=== PATIENT | female | born 1935 | race Caucasian/White ===

== ENCOUNTER 2020-03-05 14:12 | Outpatient (REF) | payer MEDICARE, SELFPAY ==
[2020-03-05 14:51] LABS: MANUAL DIFF FLAG NO
[2020-03-05 14:53] LABS: Basophils Percent Auto 0.8 % (0-2); Eosinophils Absolute Auto 0.1 X10*3/uL (0.0-0.4); Eosinophils Percent Auto 2.3 % (0-4); Hematocrit 37.5 % (37-47); Hemoglobin 11.4 g/dl (12.0-16.0); Imm Gran Abs Auto 0.01 X10*3/uL (0.00-0.03); Imm Gran Pct Auto 0.2 % (0.0-0.4); Lymphocytes Absolute Auto 1.4 X10*3/uL (1.2-4.9); Lymphocytes Percent Auto 26.3 % (20-40); Mean Corpuscular HGB Conc 30.4 g/dl (31.0-35.0); Mean Corpuscular Hemoglobin 26.5 pg (27.0-33.0); Mean Corpuscular Volume 87.2 fL (80-98); Mean Platelet Volume 10.5 fL (9.4-12.3); Monocytes Absolute Auto 0.4 X10*3/uL (0.1-1.2); Monocytes Percent Auto 7.6 % (2-11); Neutrophils Absolute Auto 3.2 X10*3/uL (2.0-8.3); Neutrophils Percent Auto 62.8 % (45-73); Platelet Count 316 X10*3/uL (160-400); Red Cell Distribution Width 14.7 % (11.0-16.0); White Blood Count 5.1 X10*3/uL (4.8-10.8)
[2020-03-05 15:26] LABS: Iron 42 mcg/dL (30-160); Percent Iron Saturation 14 % (15-50); Total Iron Binding Capacity 308 mcg/dL (228-428); Unsaturated Iron Binding 266 ug/dL
[2020-03-05 15:47] LABS: Ferritin 83 ng/mL (10-250)
== END 2020-03-05 14:13 | disposition home or self-care (01) ==
LOC: HO.LAB 14:12
PROVIDERS: PCP Internal Medicine; Visit Provider Internal Medicine
DX: D50.9 Iron deficiency anemia, unspecified (principal)
CPT/HCPCS: 36415; 82728; 83540; 85025

== ENCOUNTER 2020-03-23 11:48 | Emergency (ER) | payer MEDICARE, SELFPAY ==
[2020-03-23 11:53] VITALS: BP 131/67; BP 142/64; PULSE 76; PULSE 81; RESP 16; TEMP 36.7; O2SAT 98; O2SAT 99; BMI 26.6
--- NOTE | 2020-03-23 12:29 | CT_ITS ---
EXAMINATION: CT HEAD W/O IV CONTRAST CT FACIAL BONES WITHOUT IV CONTRAST CT CERVICAL SPINE W/O IV CONTRAST CLINICAL INFORMATION: Head trauma, right facial laceration and pain after fall. COMPARISON: None TECHNIQUE: Head - Contiguous axial imaging of the head was performed from the skull base to the vertex without the administration of intravenous contrast, and axial images are reconstructed at 2 mm and 5 mm slice thickness. Cervical spine and facial bones - Volumetric, helical CT acquisitions of the cervical spine and facial bones obtained without contrast; in addition to the standard set of axial images, multiplanar reformatted images were provided in the coronal and sagittal imaging planes. This CT examination was performed using dose optimization techniques as appropriate, variously including the following: *Automated exposure control *Adjustment of mA and/or kV according to patient size (this includes techniques or standardized protocols for targeted exams where dose is matched to indication/reason for exam; i.e. extremities or head) *Use of iterative reconstruction technique DLP: 1288 mGy-cm (total) FINDINGS: HEAD: Atherosclerotic calcification of cavernous carotid arteries. 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 The mahan-white matter differentiation is maintained. No acute major vessel territory infarction. No intracranial hemorrhage, extra-axial fluid collection, focal mass effect or midline shift. No hydrocephalus. The calvarium is intact. The mastoid air cells and middle ear cavities are well aerated. CERVICAL SPINE: No acute findings. The occipital condyles, C1 and C2 lateral masses, dens and atlantodental articulation are intact. No fractures in the anterior or posterior elements. No prevertebral soft tissue swelling. Multilevel facet osteoarthritis. The osteoarthritis is associated with mild anterolisthesis at C3-C4, C4-C5, C6-C7 and C7-T1. There is intervertebral disc calcification at C2-C3. Degenerative disc disease of C5-C6 (as manifest by loss of disc space, endplate sclerosis, endplate cystlike lucency and prominent anterior vertebral osteophyte formation). The vertebral bodies are normal in height. No spinal canal stenosis. No spinal hematoma in the visualized neck. Mild pleural-based scarring at lung apices. No apical pneumothorax. Atherosclerotic calcification of the aortic arch and carotid arteries. Thyroid gland is heterogeneous and contains several small nodules. FACIAL BONES: The globes and orbital weldon, including lamina papyracea, are intact. Lenses have been extracted from the globes of each orbit. The orbital apex, optic canals, and retrobulbar fat planes are normal. The mandible and temporomandibular joints are intact. Mild osteoarthritis of the left temporomandibular joint. Nasal bones, pterygoid plates and zygomatic arches are normal. Soft tissue laceration of the right face, premaxillary area, associated with minimally depressed fracture of the anterior wall the right maxillary sinus. Small amount of hyperdense hemorrhage/fluid layers within the right maxillary sinus. Otherwise, paranasal sinuses are unremarkable. CT/CT cervical spine wo con IMPRESSION: - No intracranial hemorrhage or other acute intracranial pathology. - No fracture fractures in the degenerated cervical spine. - Soft tissue laceration in the right premaxillary area of the face, minimally displaced depressed fracture of the anterior wall of the right maxillary sinus, and small amount of fluid/hemorrhage layering within the sinus. Otherwise, facial bones are intact.
--- NOTE | 2020-03-23 12:29 | XR_ITS ---
EXAMINATION: RIGHT ELBOW AND RIGHT HAND. CLINICAL INFORMATION: Fall. Pain. COMPARISON: None TECHNIQUE: 3 views right elbow and 3 views right hand. FINDINGS: RIGHT ELBOW: There is no visible acute fracture, dislocation or subluxation. No abnormal joint effusion seen. There is a normal anterior fat pad visualized. RIGHT HAND: There is no visible acute fracture or dislocation. There is severe loss of PIP and DIP joints with periarticular spurring and seagull deformity of the DIP joints second through fifth digits XR/XR hand RT min 3V IMPRESSION: No acute fracture or dislocation right elbow or right hand. Severe degenerative changes right hand.
--- NOTE | 2020-03-23 12:29 | XR_ITS ---
EXAMINATION: RIGHT ELBOW AND RIGHT HAND. CLINICAL INFORMATION: Fall. Pain. COMPARISON: None TECHNIQUE: 3 views right elbow and 3 views right hand. FINDINGS: RIGHT ELBOW: There is no visible acute fracture, dislocation or subluxation. No abnormal joint effusion seen. There is a normal anterior fat pad visualized. RIGHT HAND: There is no visible acute fracture or dislocation. There is severe loss of PIP and DIP joints with periarticular spurring and seagull deformity of the DIP joints second through fifth digits XR/XR elbow RT min 3V IMPRESSION: No acute fracture or dislocation right elbow or right hand. Severe degenerative changes right hand.
--- NOTE | 2020-03-23 12:30 | ECG_ITS ---
Test Reason : FALL Blood Pressure : / mmHG Vent. Rate : 069 BPM Atrial Rate : 000 BPM P-R Int : 166 ms QRS Dur : 88 ms QT Int : 410 ms P-R-T Axes : 57 003 025 degrees QTc Int : 439 ms Normal sinus rhythm Normal ECG When compared with ECG of 23-MAR-2020 13:15, No significant changes seen Referred By: Jena Hernandez Electronically Signed By: PARTH MORTON MD [facility]
--- NOTE | 2020-03-23 12:32 | ED_ITS ---
HPI - Fall General Chief Complaint: Fall Stated Complaint: ?concussion, nausea Time Seen by Provider: 03/23/20 12:07 Source: EMS Mode of arrival: EMS History of Present Illness HPI Narrative: 84-year-old female with a past medical history of iron deficiency anemia, diverticulosis, presenting to ED with facial laceration, nausea, emesis x1, and dizziness s/p mechanical fall at home this morning around 5:00 a.m. Reports slipped and fell in bathroom due to hair spray being on floor, hit face on vanity, unknown LOC, has been ambulatory since the incident. Denies preceding symptoms prior to fall. Also reports right index finger and right elbow pain. Initially went to urgent care who sent her to ED. Denies taking anticoagulation. Reports mild headache at present. Denies vision changes, neck/back pain, CP/SOB, abdominal pain, numbness/tingling Tetanus unknown MD complaint: fall Related Data Previous Rx's Medication Instructions Recorded acetaminophen [Tylenol Extra 500 mg PO Q6H PRN #20 tab 03/23/20 Strength] doxycycline monohydrate 100 mg PO BID 7 Days #14 cap 03/23/20 ondansetron HCl [Zofran] 4 mg PO Q8H PRN #10 tab 03/23/20 Allergies Allergy/AdvReac Type Severity Reaction Status Date / Time Penicillins Allergy Mild RASH Unverified 01/11/20 15:10 Twiwjvi-Eqb-Jav Reductase Allergy Mild RASH Unverified 01/11/20 15:10 Inhibitor [Statins: Hmg-Coa Reductase Inhibito] levofloxacin [From LEVAQUIN] Allergy Unknown RED RASH Unverified 01/11/20 15:10 penicillin V Allergy Unknown Verified 12/13/19 00:00 Statins Allergy Unknown Uncoded 12/13/19 00:00 Review of Systems Review of Systems: Constitutional: No Weight loss, No Fever, No Chills ENT/Mouth: No sore throat, No Rhinorrhea Eyes: No Vision Changes Cardiovascular: No Chest Pain, No SOB, No Dyspnea on Exertion Respiratory: No Cough, No Dyspnea Gastrointestinal: + Nausea, + Vomiting, No Diarrhea,No Abdominal pain Genitourinary: No irregular bleeding, No Dysuria, No Urinary Frequency, No Hematuria Musculoskeletal: + joint pain, No Myalgias, + Joint Swelling Skin: +laceration, No rash Neuro: No Weakness, No Numbness, No Paresthesias, ? Loss of Consciousness, + Dizziness, + Headache Yes all other systems are reviewed and are negative Neurologic: Reports Abnormal speech present COUNTS INCLUDE 234 BEDS AT THE [facility] Past Medical History Attestation statement: The following information was validated with the patient. Social History Social History Alcohol intake: never Smoking Status: Never smoker Use of substances other than those prescribed or required for medical reasons: No Advance Directives: No Advance Directives Information Provided: Yes Physical Exam Vital Signs: Vital Signs: Last Vital Signs Temp 98.0 F 03/23/20 11:53 Pulse 76 03/23/20 11:53 Resp 16 03/23/20 11:53 BP 142/64 H 03/23/20 11:53 Pulse Ox 99 03/23/20 11:53 Body Mass Index 26.6 Const: General: cooperative and healthy appearing Orientation/consciousness: patient oriented x3 Limitations: no limitations HENMT: Other: + right-sided facial swelling and ecchymosis. 4.5 cm superficial laceration noted to right periorbital area. No facial step-offs a ppreciated Ears: hearing grossly normal bilaterally and TM's normal bilaterally General nose exam: Normal external nose present Mouth: Normal oral and palatal mucosa present Throat: Yes posterior oropharynx normal Eyes: Other: EOMs intact General: appearance normal, both eyes and all related structures Pupils: Equal, round and reactive pupils present EOM: EOMs intact bilaterally Neck: Other: No midline cervical spinous tenderness Neck: Yes normal visual inspection, Yes full ROM and Yes no meningeal signs Chest: Chest palpation & inspection: normal inspection of the chest, normal palpation of entire chest wall and no crepitus Resp: Effort & Inspection: normal respiratory effort Cardio: Rate: regular rate Peripheral pulses: radial pulses present and dorsalis pedis present GI: Inspection: Yes normal to inspection Palpation (GI): Soft to palpation, nontender, no guarding and not rigid Back/Spine/Pelvis: Other: No midline thoracic/lumbar spinous tenderness Neuro: General: patient oriented x3, tone normal, moves all extremities, no meningeal signs, no focal motor deficits and CN's II-XI intact bilaterally Cranial nerves: Yes Equal, round and reactive pupils present Cognition (Neuro): normal cognition Speech: Abnormal speech present Gait exam (Neuro): Normal gait present Motor exam (neuro): 5/5 motor strength present throughout Coordination: [id number] test normal Extrem: Other: Right elbow with mild swelling and TTP. FROM/NV intact +R index finger with swelling and mild eccyhmosis. FROM intact General: Yes normal to inspection Course Course Course Narrative: -1451--head/C-spine CT without acute findings -facial bones CT showing minimally displaced depressed fracture of the anterior wall of the right maxillary sinus and small amount of fluid hemorrhage layering within the sinus > will discharge patient with Augmentin and ENT follow-up -hand and elbow x-ray unremarkable -labs otherwise unremarkable -orthostatic vital signs negative. Patient ambulated with steady gait in the ED. Overall reports symptomatic improvement Worrisome signs and symptoms including constant worsening headache, nausea/vomiting, vision changes, etc to return to the ED and close follow-up wit h ENT/PCP, patient verbalized understanding feel safe for discharge Procedures Laceration Laceration 1: Site: face Size (cm): 4.5 Description: irregular and clean Depth: simple, single layer Skin layer closed with: other (Dermabond) MDM - Fall MDM Narrative Medical decision making narrative: 84-year-old female with a past medical history of iron deficiency anemia, diverticulosis, presenting to ED with facial laceration, nausea, emesis x1, and dizziness s/p mechanical fall at home this morning around 5:00 a.m. on exam VSS, NAD/well-appearing, no focal neuro deficits, no midline spinous tenderness throughout. Concern for ICH/subdural vs anemia vs concussion. Rule out dehydration/orthostatic hypotension. Will repair laceration and update tetanus Plan: EKG, labs, imaging, orthostatics, lack repair, reassess Lab Data Result diagrams: 03/23/20 13:59 03/23/20 14:37 Labs: Lab Results 03/23/20 03/23/20 03/23/20 Range/Units 13:59 13:59 13:59 WBC 5.2 (4.8-10.8) X10*3/uL RBC 4.09 L (4.20-5.50) X10*6/uL Hgb 10.8 L (12.0-16.0) g/dl Hct 34.9 L (37-47) % MCV 85.3 (80-98) fL MCH 26.4 L (27.0-33.0) pg MCHC 30.9 L (31.0-35.0) g/dl RDW 14.5 (11.0-16.0) % Plt Count 277 (160-400) X10*3/uL MPV 10.4 (9.4-12.3) fL Immature Gran % (Auto) 0.2 (0.0-0.4) % Neut % (Auto) 78.7 H (45-73) % Lymph % (Auto) 14.3 L (20-40) % [place] % (Auto) 6.0 (2-11) % Eos % (Auto) 0.2 (0-4) % Baso % (Auto) 0.6 (0-2) % Lymph # (Auto) 0.7 L (1.2-4.9) X10*3/uL [place] # (Auto) 0.3 (0.1-1.2) X10*3/uL Eos # (Auto) 0.0 (0.0-0.4) X10*3/uL Baso # (Auto) 0.0 (0.0-0.2) X10*3/uL Abs Immat Gran (auto) 0.01 (0.00-0.03) X10*3/uL Absolute Neuts (auto) 4.1 (2.0-8.3) X10*3/uL Absolute Nucleated RBC 0.000 (0.0-0.012) X10*3/uL Nucleated RBC % (auto) 0.0 (0.0-0.2) /100WBC Hold Blue Top SEE NOTE Sodium Cancelled Potassium Cancelled Chloride Cancelled Carbon Dioxide Cancelled Anion Gap Cancelled BUN Cancelled Creatinine Cancelled Estim Creat Clear Calc Cancelled Estimated GFR Cancelled Random Glucose Cancelled Calcium Cancelled Magnesium Cancelled Total Bilirubin Cancelled Direct Bilirubin Cancelled AST Cancelled ALT Cancelled Alkaline Phosphatase Cancelled Total Protein Cancelled Albumin Cancelled 03/23/20 Range/Units 14:37 WBC (4.8-10.8) X10*3/uL RBC (4.20-5.50) X10*6/uL Hgb (12.0-16.0) g/dl Hct (37-47) % MCV (80-98) fL MCH (27.0-33.0) pg MCHC (31.0-35.0) g/dl RDW (11.0-16.0) % Plt Count (160-400) X10*3/uL MPV (9.4-12.3) fL Immature Gran % (Auto) (0.0-0.4) % Neut % (Auto) (45-73) % Lymph % (Auto) (20-40) % [place] % (Auto) (2-11) % Eos % (Auto) (0-4) % Baso % (Auto) (0-2) % Lymph # (Auto) (1.2-4.9) X10*3/uL [place] # (Auto) (0.1-1.2) X10*3/uL Eos # (Auto) (0.0-0.4) X10*3/uL Baso # (Auto) (0.0-0.2) X10*3/uL Abs Immat Gran (auto) (0.00-0.03) X10*3/uL Absolute Neuts (auto) (2.0-8.3) X10*3/uL Absolute Nucleated RBC (0.0-0.012) X10*3/uL Nucleated RBC % (auto) (0.0-0.2) /100WBC Hold Blue Top Sodium 138 Potassium 4.4 Chloride 107 Carbon Dioxide 23 Anion Gap 12 BUN 22 H Creatinine 1.09 Estim Creat Clear Calc 38.3 Estimated GFR 48 Random Glucose 108 Calcium 8.4 Magnesium 1.8 Total Bilirubin 0.5 Direct Bilirubin 0.2 AST 13 ALT 8 Alkaline Phosphatase 77 Total Protein 6.6 Albumin 3.4 L Discharge Plan Discharge Clinical Impression: Laceration Fracture of maxillary sinus Qualifiers: Encounter type: initial encounter Fracture type: closed Qualified Code(s): S02.401A - Maxillary fracture, unspecified side, initial encounter for closed fracture Fall Qualifiers: Encounter type: initial encounter Qualified Code(s): W19.XXXA - Unspecified fall, initial encounter Patient Disposition: Home, Self-Care Instructions: Laceration (ED), Facial Fracture (ED) Additional Instructions: Your blood work was reassuring today in the ED Your x-rays were negative Your CT scan showed a fracture of the anterior wall of your right maxillary sinus with some bleeding into her sinus. Doxycycline is an antibiotic, take as prescribed YOU NEED TO FOLLOW-UP WITH AN ENT SPECIALIST, CALL THEM TODAY TO MAKE AN APPOINTMENT Take Tylenol at home for headache Zofran as antinausea medication, take as needed Dermabond was applied to her face, do not pick at area, will fall off on its own If you develop constant worsening headache, persistent nausea/vomiting, vision changes, or weakness return to the ED immediately Call your doctor for follow-up Apply ice to her face/painful areas Make sure staying hydrated at home Prescriptions: New acetaminophen [Tylenol Extra Strength] 500 mg tablet 500 mg PO Q6H PRN (Reason: pain or fever) Qty: 20 RF: 0 ondansetron HCl [Zofran] 4 mg tablet 4 mg PO Q8H PRN (Reason: nausea and vomiting) Qty: 10 RF: 0 doxycycline monohydrate 100 mg capsule 100 mg PO BID 7 Days Qty: 14 RF: 0 Referrals: Jl Hameed MD [Primary Care Provider] - 3 days Rajeev Manuel [Physician] - 1 week
[2020-03-23] MEDS: Meclizine HCl 12.5 MG TABLET PO (12:41)
[2020-03-23] MEDS: Acetaminophen 325 MG TABLET 650 MG PO (12:41)
[2020-03-23] MEDS: 0.9 % Sodium Chloride 1,000 ML 999 ML IVCONT (13:42)
[2020-03-23] MEDS: ondansetron HCL 4 MG/2 ML VIAL IVPUSH (13:42)
--- NOTE | 2020-03-23 14:07 | PC.NURSE ---
PROVIDER AT BEDSIDE TO CLOSE WOUND W DERMABOND
[2020-03-23 14:08] LABS: MANUAL DIFF FLAG NO
[2020-03-23 14:15] LABS: Basophils Percent Auto 0.6 % (0-2); Eosinophils Percent Auto 0.2 % (0-4); Hematocrit 34.9 % (37-47); Hemoglobin 10.8 g/dl (12.0-16.0); Imm Gran Abs Auto 0.01 X10*3/uL (0.00-0.03); Imm Gran Pct Auto 0.2 % (0.0-0.4); Lymphocytes Absolute Auto 0.7 X10*3/uL (1.2-4.9); Lymphocytes Percent Auto 14.3 % (20-40); Mean Corpuscular HGB Conc 30.9 g/dl (31.0-35.0); Mean Corpuscular Hemoglobin 26.4 pg (27.0-33.0); Mean Corpuscular Volume 85.3 fL (80-98); Mean Platelet Volume 10.4 fL (9.4-12.3); Monocytes Absolute Auto 0.3 X10*3/uL (0.1-1.2); Neutrophils Absolute Auto 4.1 X10*3/uL (2.0-8.3); Neutrophils Percent Auto 78.7 % (45-73); Platelet Count 277 X10*3/uL (160-400); Red Blood Count 4.09 X10*6/uL (4.20-5.50); Red Cell Distribution Width 14.5 % (11.0-16.0); White Blood Count 5.2 X10*3/uL (4.8-10.8)
[2020-03-23 15:11] LABS: Alanine Aminotransferase 8 U/L (0-31); Albumin Level 3.4 g/dL (3.5-5.0); Alkaline Phosphatase 77 U/L (39-117); Anion Gap 12 (12-20); Aspartate Amino Transferase 13 U/L (5-31); Bilirubin Direct 0.2 mg/dL (0.0-0.5); Bilirubin Total 0.5 mg/dL (0.0-1.0); Blood Urea Nitrogen 22 mg/dL (9-16); Calcium 8.4 mg/dL (8.4-10.2); Carbon Dioxide 23 mmol/L (22-29); Chloride 107 mmol/L (96-108); Creatinine Clr Calc Pharmacy 38.3; Estimated Glomerular Filt Rate 48; Glucose Random 108 mg/dL (60-115); Magnesium 1.8 mg/dL (1.6-2.6); Potassium 4.4 mmol/l (3.3-5.1); Sodium 138 mmol/L (135-145); Total Protein 6.6 g/dL (6.5-8.0)
[2020-03-23] MEDS: SUMAtriptan succinate 50 MG TABLET PO (15:44)
== END 2020-03-23 15:57 | disposition home or self-care (01) ==
PROVIDERS: Physician Assistant; Emergency Provider Internal Medicine; PCP Internal Medicine
DX: S01.81XA Laceration without foreign body of other part of head, initial encounter (principal); S02.401A Maxillary fracture, unspecified side, initial encounter for closed fracture; G44.309 Post-traumatic headache, unspecified, not intractable; W01.0XXA Fall on same level from slipping, tripping and stumbling without subsequent striking against object, initial encounter; Y93.9 Activity, unspecified; Y92.002 Bathroom of unspecified non-institutional (private) residence as the place of occurrence of the external cause; Y99.9 Unspecified external cause status
CPT/HCPCS: 12013; 36415; 70450; 70486; 72125; 73080; 73130; 80048; 80076; 83735; 85025; 90471; 90715; 93005; 96361; 96374; 99284; J2405

== ENCOUNTER → 2020-04-04 13:17 | Outpatient (BNV) | payer MEDICARE, SELFPAY | PROVIDERS: PCP Internal Medicine; Visit Provider Internal Medicine Medical Oncology | DX: D50.9 Iron deficiency anemia, unspecified (principal); Z85.3 Personal history of malignant neoplasm of breast; Z92.21 Personal history of antineoplastic chemotherapy | CPT/HCPCS: 99213; 99214 ==

== ENCOUNTER 2020-04-10 11:14 | Outpatient (REF) | payer MEDICARE, SELFPAY ==
[2020-04-10 13:25] LABS: Anion Gap 11 (12-20); Blood Urea Nitrogen 12 mg/dL (9-16); Calcium 8.8 mg/dL (8.4-10.2); Carbon Dioxide 28 mmol/L (22-29); Chloride 104 mmol/L (96-108); Estimated Glomerular Filt Rate 50; Glucose Fasting 101 mg/dL (60-99); Potassium 4.3 mmol/l (3.3-5.1); Sodium 139 mmol/L (135-145)
== END 2020-04-10 11:15 | disposition home or self-care (01) ==
LOC: HO.MANLDS 11:14
PROVIDERS: PCP Internal Medicine; Visit Provider Internal Medicine
DX: N25.9 Disorder resulting from impaired renal tubular function, unspecified (principal)
CPT/HCPCS: 80048

== ENCOUNTER 2020-06-06 14:46 | Outpatient (REF) | payer MEDICARE, SELFPAY ==
[2020-06-06 15:05] LABS: MANUAL DIFF FLAG NO
[2020-06-06 15:07] LABS: Basophils Percent Auto 0.7 % (0-2); Eosinophils Absolute Auto 0.1 X10*3/uL (0.0-0.4); Eosinophils Percent Auto 2.3 % (0-4); Hematocrit 36.5 % (37-47); Hemoglobin 10.7 g/dl (12.0-16.0); Imm Gran Abs Auto 0.02 X10*3/uL (0.00-0.03); Imm Gran Pct Auto 0.3 % (0.0-0.4); Lymphocytes Absolute Auto 1.5 X10*3/uL (1.2-4.9); Lymphocytes Percent Auto 25.7 % (20-40); Mean Corpuscular HGB Conc 29.3 g/dl (31.0-35.0); Mean Corpuscular Hemoglobin 24.3 pg (27.0-33.0); Mean Platelet Volume 10.6 fL (9.4-12.3); Monocytes Absolute Auto 0.5 X10*3/uL (0.1-1.2); Monocytes Percent Auto 8.9 % (2-11); Neutrophils Absolute Auto 3.6 X10*3/uL (2.0-8.3); Neutrophils Percent Auto 62.1 % (45-73); Platelet Count 331 X10*3/uL (160-400); Red Cell Distribution Width 15.6 % (11.0-16.0); White Blood Count 5.8 X10*3/uL (4.8-10.8)
[2020-06-06 15:29] LABS: Iron 38 mcg/dL (30-160); Percent Iron Saturation 13 % (15-50); Total Iron Binding Capacity 284 mcg/dL (228-428); Unsaturated Iron Binding 246 ug/dL
[2020-06-06 15:51] LABS: Ferritin 57 ng/mL (10-250)
== END 2020-06-06 14:47 | disposition home or self-care (01) ==
LOC: HO.LAB 14:46
PROVIDERS: PCP Internal Medicine; Visit Provider Internal Medicine
DX: D50.9 Iron deficiency anemia, unspecified (principal); D50.0 Iron deficiency anemia secondary to blood loss (chronic)
CPT/HCPCS: 36415; 82728; 83540; 85025

== ENCOUNTER 2020-07-16 11:38 | Outpatient (REF) | payer MEDICARE, SELFPAY | END 2020-07-16 11:39 | disposition home or self-care (01) | LOC: HO.MDS 11:38 | PROVIDERS: PCP Internal Medicine; Visit Provider Internal Medicine Medical Oncology | DX: D50.9 Iron deficiency anemia, unspecified (principal) | CPT/HCPCS: 96365; J1439 ==

== ENCOUNTER 2020-07-23 11:55 | Outpatient (REF) | payer MEDICARE, SELFPAY | END 2020-07-23 11:56 | disposition home or self-care (01) | LOC: HO.MDS 11:55 | PROVIDERS: PCP Internal Medicine; Visit Provider Internal Medicine Medical Oncology | DX: D50.9 Iron deficiency anemia, unspecified (principal) | CPT/HCPCS: 96365; J1439 ==

== ENCOUNTER 2020-09-05 12:02 | Outpatient (REF) | payer MEDICARE, SELFPAY ==
[2020-09-05 13:11] LABS: MANUAL DIFF FLAG NO
[2020-09-05 13:21] LABS: Basophils Absolute Auto 0.1 X10*3/uL (0.0-0.2); Basophils Percent Auto 1.3 % (0-2); Eosinophils Absolute Auto 0.1 X10*3/uL (0.0-0.4); Eosinophils Percent Auto 2.4 % (0-4); Hematocrit 39.6 % (37-47); Hemoglobin 12.1 g/dl (12.0-16.0); Imm Gran Abs Auto 0.01 X10*3/uL (0.00-0.03); Imm Gran Pct Auto 0.2 % (0.0-0.4); Lymphocytes Absolute Auto 1.1 X10*3/uL (1.2-4.9); Lymphocytes Percent Auto 23.1 % (20-40); Mean Corpuscular HGB Conc 30.6 g/dl (31.0-35.0); Mean Corpuscular Hemoglobin 27.9 pg (27.0-33.0); Mean Corpuscular Volume 91.2 fL (80-98); Mean Platelet Volume 10.6 fL (9.4-12.3); Monocytes Absolute Auto 0.4 X10*3/uL (0.1-1.2); Monocytes Percent Auto 8.1 % (2-11); Neutrophils Percent Auto 64.9 % (45-73); Platelet Count 268 X10*3/uL (160-400); Red Blood Count 4.34 X10*6/uL (4.20-5.50); Red Cell Distribution Width 17.7 % (11.0-16.0); White Blood Count 4.6 X10*3/uL (4.8-10.8)
[2020-09-05 13:28] LABS: Iron 42 mcg/dL (30-160); Percent Iron Saturation 20 % (15-50); Total Iron Binding Capacity 215 mcg/dL (228-428); Unsaturated Iron Binding 173 ug/dL
[2020-09-05 13:48] LABS: Ferritin 420 ng/mL (10-250)
== END 2020-09-05 12:03 | disposition home or self-care (01) ==
LOC: HO.LAB 12:02
PROVIDERS: PCP Internal Medicine; Visit Provider Internal Medicine
DX: D50.9 Iron deficiency anemia, unspecified (principal)
CPT/HCPCS: 36415; 82728; 83540; 85025

== ENCOUNTER 2021-01-10 10:16 | Outpatient (REF) | payer MEDICARE, SELFPAY ==
[2021-01-10 12:51] LABS: Hematocrit 36.4 % (37-47); Hemoglobin 11.2 g/dl (12.0-16.0); Mean Corpuscular HGB Conc 30.8 g/dl (31.0-35.0); Mean Corpuscular Hemoglobin 28.4 pg (27.0-33.0); Mean Corpuscular Volume 92.4 fL (80-98); Mean Platelet Volume 10.3 fL (9.4-12.3); Platelet Count 319 X10*3/uL (160-400); Red Blood Count 3.94 X10*6/uL (4.20-5.50); Red Cell Distribution Width 13.6 % (11.0-16.0); White Blood Count 4.6 X10*3/uL (4.8-10.8)
[2021-01-10 13:28] LABS: Alanine Aminotransferase 6 U/L (0-31); Albumin Level 3.5 g/dL (3.5-5.0); Alkaline Phosphatase 97 U/L (39-117); Anion Gap 14 (12-20); Aspartate Amino Transferase 11 U/L (5-31); Bilirubin Total 0.5 mg/dL (0.0-1.0); Blood Urea Nitrogen 21 mg/dL (9-16); Calcium 9.2 mg/dL (8.4-10.2); Carbon Dioxide 26 mmol/L (22-29); Chloride 102 mmol/L (96-108); Cholesterol 164 mg/dL; Estimated Glomerular Filt Rate 46; Glucose Fasting 100 mg/dL (60-99); HDL Cholesterol 38 mg/dL; Iron 38 mcg/dL (30-160); LDL Cholesterol Calculated 102 mg/dl; Percent Iron Saturation 18 % (15-50); Potassium 4.5 mmol/L (3.3-5.1); Sodium 137 mmol/L (135-145); Total Iron Binding Capacity 215 mcg/dL (228-428); Triglycerides 122 mg/dL; Unsaturated Iron Binding 177 ug/dL
[2021-01-10 13:50] LABS: Ferritin 332 ng/mL (10-250)
== END 2021-01-10 10:17 | disposition home or self-care (01) ==
LOC: HO.MANLDS 10:16
PROVIDERS: PCP Internal Medicine; Visit Provider Internal Medicine
DX: D50.9 Iron deficiency anemia, unspecified (principal); E78.5 Hyperlipidemia, unspecified
CPT/HCPCS: 36415; 80053; 80061; 82728; 83540; 85027

== ENCOUNTER 2021-05-01 13:36 | Outpatient (REF) | payer MEDICARE, SELFPAY | END 2021-05-01 13:37 | disposition home or self-care (01) | LOC: HO.MDS 13:36 | PROVIDERS: PCP Internal Medicine; Visit Provider Internal Medicine Medical Oncology | DX: D50.9 Iron deficiency anemia, unspecified (principal) | CPT/HCPCS: 96365; J1439 ==

== ENCOUNTER 2021-05-09 10:38 | Outpatient (REF) | payer MEDICARE, SELFPAY | END 2021-05-09 10:39 | disposition home or self-care (01) | LOC: HO.MDS 10:38 | PROVIDERS: PCP Internal Medicine; Visit Provider Internal Medicine Medical Oncology | DX: D50.9 Iron deficiency anemia, unspecified (principal) | CPT/HCPCS: 96365; J1439 ==

== ENCOUNTER 2021-05-20 08:47 | Outpatient (REF) | payer MEDICARE, SELFPAY ==
[2021-05-20 11:15] LABS: Appearance Urine CLEAR; Color Urine YELLOW; Glucose Urine UA NEG (NEG); Leukocyte Esterase Urine NEG (NEG); Nitrite Urine NEG (NEG); Urine Blood NEG (NEG); Urine Ketones NEG (NEG); Urine Protein NEG (NEG-TRACE)
[2021-05-20 11:44] LABS: Anion Gap 13 (12-20); Blood Urea Nitrogen 14 mg/dL (9-16); Calcium 9.4 mg/dL (8.4-10.2); Carbon Dioxide 28 mmol/L (22-29); Chloride 102 mmol/L (96-108); Estimated Glomerular Filt Rate 40; Glucose Random 101 mg/dL (60-115); Magnesium 2.3 mg/dL (1.6-2.6); Potassium 3.9 mmol/L (3.3-5.1); Sodium 139 mmol/L (135-145)
== END 2021-05-20 08:48 | disposition home or self-care (01) ==
LOC: HO.MANLDS 08:47
PROVIDERS: PCP Internal Medicine; Visit Provider Internal Medicine
DX: N28.9 Disorder of kidney and ureter, unspecified (principal)
CPT/HCPCS: 36415; 80048; 81003; 83735

== ENCOUNTER 2021-06-17 11:30 | Outpatient (REF) | payer MEDICARE, SELFPAY ==
[2021-06-17 13:53] LABS: MANUAL DIFF FLAG NO
[2021-06-17 13:59] LABS: Eosinophils Absolute Auto 0.1 X10*3/uL (0.0-0.4); Eosinophils Percent Auto 2.2 % (0-4); Hematocrit 40.2 % (37.0-47.0); Hemoglobin 12.5 g/dl (12.0-16.0); Imm Gran Abs Auto 0.01 X10*3/uL (0.00-0.03); Imm Gran Pct Auto 0.2 % (0.0-0.4); Lymphocytes Absolute Auto 0.9 X10*3/uL (1.2-4.9); Lymphocytes Percent Auto 22.4 % (20-40); Mean Corpuscular HGB Conc 31.1 g/dl (31.0-35.0); Mean Corpuscular Hemoglobin 28.3 pg (27.0-33.0); Mean Platelet Volume 10.4 fL (9.4-12.3); Monocytes Absolute Auto 0.4 X10*3/uL (0.1-1.2); Monocytes Percent Auto 9.1 % (2-11); Neutrophils Absolute Auto 2.6 x10*3/uL (2.0-8.3); Neutrophils Percent Auto 65.1 % (45-73); Platelet Count 262 X10*3/uL (160-400); Red Blood Count 4.42 X10*6/uL (4.20-5.50); Red Cell Distribution Width 15.2 % (11.0-16.0); White Blood Count 4.1 X10*3/uL (4.8-10.8)
[2021-06-17 14:09] LABS: C Reactive Protein 4.63 mg/dL (< or = 0.50)
[2021-06-17 14:43] LABS: Erythrocyte Sedimentation Rate 50 MM/HR (0-20)
== END 2021-06-17 11:31 | disposition home or self-care (01) ==
LOC: HO.10HDL 11:30
PROVIDERS: Visit Provider Internal Medicine
DX: Z13.89 Encounter for screening for other disorder (principal)
CPT/HCPCS: 36415; 85025; 85652; 86140

== ENCOUNTER 2021-06-17 17:00 | Outpatient (REF) | payer MEDICARE, SELFPAY ==
[2021-06-18 15:23] LABS: Leukocytes Stool Qualitative FEW: < 2/OIF (NEGATIVE)
[2021-06-18 16:48] LABS: CDiff Gene PCR NEGATIVE (Negative)
== END 2021-06-17 17:01 | disposition home or self-care (01) ==
LOC: HO.10HDLNP 17:00
PROVIDERS: Visit Provider Internal Medicine
DX: R19.7 Diarrhea, unspecified (principal)
CPT/HCPCS: 36415; 85025; 85652; 86140; 87045; 87046; 87177; 87209; 87329; 87493; 89055

== ENCOUNTER 2021-06-18 13:08 | Outpatient (REF) | payer MEDICARE, SELFPAY | END 2021-06-18 13:09 | disposition home or self-care (01) | LOC: HO.10HDLNP 13:08 | PROVIDERS: Visit Provider Internal Medicine | DX: Z13.89 Encounter for screening for other disorder (principal) ==

== ENCOUNTER 2021-06-26 13:41 | Outpatient (REF) | payer MEDICARE, SELFPAY ==
[2021-06-27 19:22] LABS: Immunoglobulin A 683 mg/dL (70-320)
[2021-06-28 07:17] LABS: Transglutaminase Ab IgG <1.0 U/mL; Transglutaminase IgA <1.0 U/mL
[2021-06-30 13:50] LABS: Gliadin Deamidated IgG Ab <1.0 U/mL
[2021-07-02 21:06] LABS: Endomysial IgA Antibody Negative (Negative)
== END 2021-06-26 13:42 | disposition home or self-care (01) ==
LOC: HO.LAB 13:41
PROVIDERS: PCP Internal Medicine; Visit Provider Internal Medicine
DX: R19.7 Diarrhea, unspecified (principal); D50.9 Iron deficiency anemia, unspecified; R63.4 Abnormal weight loss
CPT/HCPCS: 36415; 82784; 86231; 86258; 86364

== ENCOUNTER 2021-07-02 10:19 | Day surgery (SDC) | payer MEDICARE, SELFPAY ==
[2021-07-02 09:52] VITALS: BMI 23.2
[2021-07-02 10:33] VITALS: BP 145/74; PULSE 79; RESP 19; TEMP 36.8; O2SAT 98
--- NOTE | 2021-07-02 11:28 | HO.ANESPROP2 ---
HPI - Anesthesia Eval Consult details Narrative: 85 yo female patient for Colonoscopy PMFSH Active Problems Active Problems: All Active Problems (Updated 07/01/21 @ 08:20 by Elizabeth Jacobson) Iron deficiency anemia (Acute). Getting iron infusions. 06/17/21 Hgb/Hct 12.5/40.2 Breast cancer (Acute) Breast cancer in female (Acute) Advanced age Past Medical History Medical History (Updated 07/02/21 @ 11:37 by Erica Mendieta MD) Cataracts, bilateral Cholecystectomy planned Diverticulitis FH: total knee replacement Hx of breast cancer Iron deficiency anemia Family History Family History Sister Breast cancer Diabetes Mother Diabetes Family history of problems with anesthesia: No Surgical History Surgical History (Updated 07/02/21 @ 11:37 by Erica Mendieta MD) Cataract H/O colonoscopy H/O total knee replacement History of colostomy reversal History of Problems with Anesthesia: No Social History Social History Alcohol intake: never Patient Tobacco Use Status: Former Tobacco user Are you DNR?: No Advance Directives: No Advance Directives Information Provided: Yes Meds Allergies Allergy/AdvReac Type Severity Reaction Status Date / Time Penicillins Allergy Mild RASH Verified 04/08/21 13:39 Fyepuqz-RBM-YrR Reductase Allergy Mild RASH Verified 04/08/21 13:39 Inhibitor [Statins: Hmg-Coa Reductase Inhibito] levofloxacin [From LEVAQUIN] Allergy Unknown RED RASH Verified 04/08/21 13:39 gabapentin Allergy Unknown Verified 07/01/21 08:21 pregabalin [From Lyrica] Allergy Unknown Verified 07/01/21 08:21 Active Medications: Current Medications Sodium Biphosphate/Sodium Phosphate (Sodium Phosphate,Hancock-Dibasic 133 Ml Enema) 133 ml LA ONCE PRN PRN Reason: Poor Colonoscopy Prep Results Home Medications Medication Instructions Recorded Confirmed Last Taken Type fluoxetine 20 mg capsule 1 cap PO DAILY 04/04/20 04/08/21 Unknown History latanoprost 0.005 % eye drops 1 drp OPHTHALMIC (EYE) DAILY 04/04/20 04/08/21 Unknown History sucralfate 1 gram tablet 1 g PO DAILY 04/04/20 04/08/21 Unknown History sumatriptan succinate 100 mg tablet 1 tab PO DIRECTED PRN 04/04/20 04/08/21 Unknown History ferrous sulfate 325 mg (65 mg 325 mg PO DAILY 07/02/20 04/08/21 06/24/21 History iron) tablet (iron) omeprazole 20 mg capsule,delayed 20 mg PO DAILY 04/08/21 04/08/21 Unknown History release Exam Exam Date and Time: July 02, 2021 1128 Height,Weight and Vital Signs: Height 5 ft 5.5 in Weight 64.41 kg Last Vital Signs Temp 98.2 F 07/02/21 10:33 Pulse 79 07/02/21 10:33 Resp 19 07/02/21 10:33 BP 145/74 H 07/02/21 10:33 Pulse Ox 98 07/02/21 10:33 Airway Mallampati Class: II TM Dist: >3cm Neck ROM: Full Partial: Upper Heart: RRR Lungs: CTAB Other: [place] queasy during prep for colonoscopy. Requests anti-emetic. Given Assessment and Plan Assessment Anesthesia Assessment: Anesthesia Plan Discussed and Chart Reviewed Final Anesthetic Review Family History of Problems with Anesthesia: No History of Problems with Anesthesia: No NPO: Yes ASA Class: II Final Preanesthetic Review: No Changes in Pt Med Stat, Meds/Allgs Chart Reviewed, Consent Obtained/Reviewed and Anes Risks/Benef Reviewed Patient Risk: Low Procedure Risk: Low Assessment/Block/Sedation in SS: Assess/Block/Sedation-SS Anesthetic Plan Anesthetic Plan: MAC: Disposition: Standard PACU
[2021-07-02] MEDS: Lactated Ringers 1,000 ML 100 ML IVCONT (11:49)
[2021-07-02] MEDS: ondansetron HCL 4 MG/2 ML VIAL IVPUSH (11:49)
[2021-07-02 12:44] VITALS: BP 141/76; PULSE 83; RESP 12; TEMP 36.1; O2SAT 99
--- NOTE | 2021-07-02 12:48 | P.BOP_ITS ---
Brief Operative Note Date of Service: 07/02/21 Pre-op diagnosis: Diarrhea Post-op diagnosis: other (Colon polyp, R/O microscopic colitis) Procedure: Colonoscopy to the cecum and TI with hot snare polypectomy, and biopsies. Surgeon: Dawood Allred Anesthesia: MAC Was an [employer] used for this Procedure?: No Estimated blood loss (mL): 2.0 Pathology: other (A. Terminal ileum B. Ascending colon C. Ascending colon polyp D. Descending colon) Condition: stable Disposition: PACU
[2021-07-02 12:59] VITALS: BP 166/83; PULSE 82; RESP 18; TEMP 36.1; O2SAT 99
--- NOTE | 2021-07-02 13:06 | OP_ITS ---
SURGEON: Dawood Allred MD INDICATIONS: The patient presents for evaluation of persistent diarrhea. Full consent was obtained from her for this, including risks of bleeding and perforation. PREOPERATIVE DIAGNOSIS: POSTOPERATIVE DIAGNOSIS: PROCEDURE PERFORMED: Colonoscopy to the cecum and terminal ileum with biopsies, and hot snare polypectomy. ESTIMATED BLOOD LOSS: COMPLICATIONS: ANESTHESIA: Monitored anesthesia care. ASSISTANTS: SPECIMENS: PREOPERATIVE DIAGNOSES: Diarrhea and weight loss. POSTOPERATIVE DIAGNOSES: Diarrhea and weight loss. Colon polyp, rule out microscopic colitis. Diverticulosis. Small internal hemorrhoids. DESCRIPTION OF PROCEDURE: The patient was placed in the left lateral decubitus position. The digital rectal exam revealed no abnormalities. The Olympus video pediatric colonoscope was entered into the rectum and advanced easily to the cecum. Once in the cecum, I did identify cecal pouch with a normal-appearing appendiceal orifice. The entire cecum was well visualized and appeared normal. The terminal ileum was cannulated and appeared normal. Biopsies were obtained from the terminal ileum. The scope was withdrawn back in the colon. The entire cecum and ileocecal valve appeared normal. The scope was then slowly withdrawn assessing all mucosal surfaces carefully. Preparation was excellent. In the proximal ascending colon was an approximately 10 mm polyp, which was removed with a hot snare polypectomy and recovered by suction. The polypectomy site appeared clean, without any sign of residual polyp nor bleeding. I did not visualize any sign of other polyps, colitis, nor angiodysplasia. I did obtain random biopsies in the ascending and descending colon. There was a mild amount of diverticulosis in the descending colon. A normal-appearing anastomosis appeared at 15 cm. In the rectum, the scope was retroflexed visualizing some internal hemorrhoids, but no other pathology. The rectal mucosa appeared normal. The scope was straightened and withdrawn from the patient. She tolerated the procedure well and was returned to recovery area in stable condition. IMPRESSION: 1. Colon polyp, status post hot snare polypectomy. 2. Rule out microscopic colitis. 3. Mild diverticulosis. 4. Internal hemorrhoids. PLAN: The results of the pathology will be checked. I have advised her to begin using Imodium up to 4 times a day as needed, but advised her to take 2 every morning on a regular basis in addition to the prn doses later in the day. If the biopsies are normal, we may try other treatment for this diarrhea including things like cholestyramine and Lomotil. She does have laboratories for celiac disease currently pending. She will be seen in followup in the office in the next month or 2. This has been discussed with her family. MD GATO Jones/AB / [id number] MTDD
== END 2021-07-02 13:30 | disposition home or self-care (01) ==
PROVIDERS: PCP Internal Medicine; Visit Provider Internal Medicine
PROC: 0DJD8ZZ Inspection of Lower Intestinal Tract, Via Natural or Artificial Opening Endoscopic (ICD-10-PCS; CPT 45378; principal; 2021-07-02 11:50)
DX: R19.7 Diarrhea, unspecified (principal); Z86.010 Personal history of colon polyps; D50.9 Iron deficiency anemia, unspecified; R63.4 Abnormal weight loss; Z68.23 Body mass index [BMI] 23.0-23.9, adult; D12.2 Benign neoplasm of ascending colon; K57.30 Diverticulosis of large intestine without perforation or abscess without bleeding; K64.8 Other hemorrhoids; Z79.899 Other long term (current) drug therapy; Z98.0 Intestinal bypass and anastomosis status; Z88.0 Allergy status to penicillin; Z88.8 Allergy status to other drugs, medicaments and biological substances; Z85.3 Personal history of malignant neoplasm of breast; Z92.21 Personal history of antineoplastic chemotherapy; Z92.3 Personal history of irradiation; Z96.653 Presence of artificial knee joint, bilateral; Z87.891 Personal history of nicotine dependence
CPT/HCPCS: 45385; 45380; 88305; J2405

== ENCOUNTER 2021-10-02 10:53 | Outpatient (REF) | payer MEDICARE, SELFPAY ==
[2021-10-02 11:02] LABS: MANUAL DIFF FLAG NO
[2021-10-02 11:16] LABS: Basophils Absolute Auto 0.1 X10*3/uL (0.0-0.2); Basophils Percent Auto 0.9 % (0-2); Eosinophils Absolute Auto 0.1 X10*3/uL (0.0-0.4); Hematocrit 36.2 % (37.0-47.0); Hemoglobin 10.7 g/dl (12.0-16.0); Imm Gran Abs Auto 0.03 X10*3/uL (0.00-0.03); Imm Gran Pct Auto 0.5 % (0.0-0.4); Lymphocytes Percent Auto 18.2 % (20-40); Mean Corpuscular HGB Conc 29.6 g/dl (31.0-35.0); Mean Corpuscular Hemoglobin 27.6 pg (27.0-33.0); Mean Corpuscular Volume 93.5 fL (80.0-98.0); Mean Platelet Volume 9.8 fL (9.4-12.3); Monocytes Absolute Auto 0.5 X10*3/uL (0.1-1.2); Monocytes Percent Auto 9.1 % (2-11); Neutrophils Absolute Auto 3.9 x10*3/uL (2.0-8.3); Neutrophils Percent Auto 69.3 % (45-73); Platelet Count 309 X10*3/uL (160-400); Red Blood Count 3.87 X10*6/uL (4.20-5.50); Red Cell Distribution Width 14.5 % (11.0-16.0); White Blood Count 5.6 X10*3/uL (4.8-10.8)
[2021-10-02 12:04] LABS: Alanine Aminotransferase 18 U/L (0-31); Albumin Level 3.5 g/dL (3.5-5.0); Alkaline Phosphatase 115 U/L (39-117); Anion Gap 13 (12-20); Aspartate Amino Transferase 19 U/L (5-31); Bilirubin Total 0.3 mg/dL (0.0-1.0); Blood Urea Nitrogen 23 mg/dL (9-16); Calcium 9.4 mg/dL (8.4-10.2); Carbon Dioxide 25 mmol/L (22-29); Chloride 106 mmol/L (96-108); Estimated Glomerular Filt Rate 54; Glucose Random 112 mg/dL (60-115); Iron 31 mcg/dL (30-160); Percent Iron Saturation 12 % (15-50); Potassium 5.1 mmol/L (3.3-5.1); Sodium 139 mmol/L (135-145); Total Iron Binding Capacity 249 mcg/dL (228-428); Total Protein 7.5 g/dL (6.5-8.0); Unsaturated Iron Binding 218 ug/dL
[2021-10-02 12:14] LABS: Ferritin 344 ng/mL (10-250)
[2021-10-02 13:02] LABS: Vitamin B12 734 pg/mL (200-900)
== END 2021-10-02 10:54 | disposition home or self-care (01) ==
LOC: HO.LAB 10:53
PROVIDERS: PCP Internal Medicine; Referring Provider Internal Medicine; Visit Provider Internal Medicine
DX: D50.9 Iron deficiency anemia, unspecified (principal)
CPT/HCPCS: 36415; 80053; 82607; 82728; 83540; 85025

== ENCOUNTER 2021-11-26 12:12 | Outpatient (REF) | payer MEDICARE, SELFPAY ==
[2021-11-26 18:16] LABS: Hematocrit 35.7 % (37.0-47.0); Hemoglobin 10.7 g/dl (12.0-16.0); Mean Corpuscular Hemoglobin 27.1 pg (27.0-33.0); Mean Corpuscular Volume 90.4 fL (80.0-98.0); Mean Platelet Volume 10.2 fL (9.4-12.3); Platelet Count 302 X10*3/uL (160-400); Red Blood Count 3.95 X10*6/uL (4.20-5.50); Red Cell Distribution Width 13.9 % (11.0-16.0); White Blood Count 4.3 X10*3/uL (4.8-10.8)
[2021-11-26 18:23] LABS: Alanine Aminotransferase 9 U/L (0-31); Albumin Level 3.4 g/dL (3.5-5.0); Alkaline Phosphatase 92 U/L (39-117); Anion Gap 14 (12-20); Aspartate Amino Transferase 15 U/L (5-31); Bilirubin Total 0.3 mg/dL (0.0-1.0); Blood Urea Nitrogen 24 mg/dL (9-16); Calcium 9.1 mg/dL (8.4-10.2); Carbon Dioxide 25 mmol/L (22-29); Chloride 106 mmol/L (96-108); Estimated Glomerular Filt Rate 48; Glucose Random 97 mg/dL (60-115); Iron 27 mcg/dL (30-160); Percent Iron Saturation 12 % (15-50); Sodium 141 mmol/L (135-145); Total Iron Binding Capacity 222 mcg/dL (228-428); Total Protein 7.1 g/dL (6.5-8.0); Unsaturated Iron Binding 195 ug/dL
[2021-11-26 19:01] LABS: Erythrocyte Sedimentation Rate 80 MM/HR (0-20)
== END 2021-11-26 12:13 | disposition home or self-care (01) ==
LOC: HO.MANLDS 12:12
PROVIDERS: Visit Provider Internal Medicine
DX: D50.9 Iron deficiency anemia, unspecified (principal)
CPT/HCPCS: 36415; 80053; 83540; 85027; 85652

== ENCOUNTER 2022-01-07 10:56 | Outpatient (REF) | payer MEDICARE, SELFPAY ==
[2022-01-07 14:07] LABS: Erythrocyte Sedimentation Rate 4 MM/HR (0-20)
== END 2022-01-07 10:57 | disposition home or self-care (01) ==
LOC: HO.MANLDS 10:56
PROVIDERS: Visit Provider Internal Medicine
DX: M35.3 Polymyalgia rheumatica (principal)
CPT/HCPCS: 36415; 85652

== ENCOUNTER 2022-02-09 11:45 | Outpatient (REF) | payer MEDICARE, SELFPAY ==
[2022-02-09 15:21] LABS: Erythrocyte Sedimentation Rate 4 MM/HR (0-20)
== END 2022-02-09 11:46 | disposition home or self-care (01) ==
LOC: HO.MANLDS 11:45
PROVIDERS: Visit Provider Internal Medicine
DX: M35.3 Polymyalgia rheumatica (principal)
CPT/HCPCS: 36415; 85652

== ENCOUNTER 2022-03-10 14:54 | Outpatient (REF) | payer MEDICARE, SELFPAY ==
[2022-03-10 19:09] LABS: Erythrocyte Sedimentation Rate 7 MM/HR (0-20)
== END 2022-03-10 14:55 | disposition home or self-care (01) ==
LOC: HO.MANLDS 14:54
PROVIDERS: Visit Provider Internal Medicine
DX: M35.3 Polymyalgia rheumatica (principal)
CPT/HCPCS: 36415; 85652

== ENCOUNTER 2022-04-09 12:25 | Outpatient (REF) | payer MEDICARE, SELFPAY ==
[2022-04-09 14:00] LABS: Erythrocyte Sedimentation Rate 23 MM/HR (0-20)
== END 2022-04-09 12:26 | disposition home or self-care (01) ==
LOC: HO.LAB 12:25
PROVIDERS: PCP Internal Medicine; Visit Provider Internal Medicine
DX: M35.3 Polymyalgia rheumatica (principal)
CPT/HCPCS: 36415; 85652

== ENCOUNTER 2022-05-15 15:28 | Outpatient (REF) | payer MEDICARE, SELFPAY ==
[2022-05-15 19:23] LABS: MANUAL DIFF FLAG NO
[2022-05-15 19:25] LABS: Basophils Percent Auto 0.3 % (0-2); Eosinophils Percent Auto 0.2 % (0-4); Hematocrit 47.9 % (37.0-47.0); Hemoglobin 15.1 g/dl (12.0-16.0); Imm Gran Abs Auto 0.16 X10*3/uL (0.00-0.03); Imm Gran Pct Auto 1.4 % (0.0-0.4); Lymphocytes Absolute Auto 2.4 X10*3/uL (1.2-4.9); Lymphocytes Percent Auto 20.7 % (20-40); Mean Corpuscular HGB Conc 31.5 g/dl (31.0-35.0); Mean Corpuscular Hemoglobin 30.3 pg (27.0-33.0); Mean Corpuscular Volume 96.2 fL (80.0-98.0); Mean Platelet Volume 12.2 fL (9.4-12.3); Monocytes Absolute Auto 0.5 X10*3/uL (0.1-1.2); Monocytes Percent Auto 4.1 % (2-11); Neutrophils Absolute Auto 8.6 x10*3/uL (2.0-8.3); Neutrophils Percent Auto 73.3 % (45-73); Platelet Count 167 X10*3/uL (160-400); Red Blood Count 4.98 X10*6/uL (4.20-5.50); White Blood Count 11.7 X10*3/uL (4.8-10.8)
[2022-05-15 19:50] LABS: Alanine Aminotransferase 30 U/L (0-31); Albumin Level 3.9 g/dL (3.5-5.0); Alkaline Phosphatase 60 U/L (39-117); Anion Gap 15 (12-20); Aspartate Amino Transferase 20 U/L (5-31); Bilirubin Total 0.8 mg/dL (0.0-1.0); Blood Urea Nitrogen 34 mg/dL (9-16); Calcium 9.9 mg/dL (8.4-10.2); Carbon Dioxide 29 mmol/L (22-29); Chloride 103 mmol/L (96-108); Estimated Glomerular Filt Rate 34; Glucose Random 73 mg/dL (60-115); Iron 162 mcg/dL (30-160); Percent Iron Saturation 49 % (15-50); Potassium 4.2 mmol/L (3.3-5.1); Sodium 143 mmol/L (135-145); Total Iron Binding Capacity 333 mcg/dL (228-428); Total Protein 6.4 g/dL (6.5-8.0); Unsaturated Iron Binding 171 ug/dL
[2022-05-15 20:08] LABS: Ferritin 71 ng/mL (10-250)
== END 2022-05-15 15:29 | disposition home or self-care (01) ==
LOC: HO.MANLDS 15:28
PROVIDERS: Visit Provider Internal Medicine
DX: D50.9 Iron deficiency anemia, unspecified (principal)
CPT/HCPCS: 36415; 80053; 82728; 83540; 85025

== ENCOUNTER 2022-05-18 15:20 | Outpatient (REF) | payer MEDICARE, SELFPAY ==
--- NOTE | ~2022-05-18 | US_ITS ---
EXAMINATION: US RETROPERITONEAL LIMITED (RENAL ONLY) CLINICAL INFORMATION: Disorders of adrenal gland, need to confirm cyst on right side. COMPARISON: CT abdomen and pelvis 03/02/2018. TECHNIQUE: Real-time imaging of the kidneys. FINDINGS: RIGHT KIDNEY: 10.4 x 5.0 x 5.1 cm (SAG x AP x TRV). The kidney is normal in size and contour. Renal cortical thickness is normal. No renal calculi or hydronephrosis. Multiple benign-appearing cysts, the largest measuring up to 4.7 cm. Followup imaging is not routinely recommended for benign appearing cysts.. LEFT KIDNEY: 9.7 x 5.0 x 5.0 cm (SAG x AP x TRV). The kidney is normal in size and contour. Renal cortical thickness is normal. No renal calculi or hydronephrosis. Multiple benign-appearing cortical and parapelvic cysts, the largest measuring up to 4.5 cm. Followup imaging is not routinely recommended for benign appearing cysts. US/US renal BI IMPRESSION: Bilateral benign-appearing renal cysts. Followup imaging is not routinely recommended for benign appearing cysts.
== END 2022-05-18 15:21 | disposition home or self-care (01) ==
LOC: HO.US 15:20
PROVIDERS: PCP Internal Medicine; Visit Provider Internal Medicine
DX: E27.8 Other specified disorders of adrenal gland (principal)
CPT/HCPCS: 76775

== ENCOUNTER 2022-08-11 11:39 | Outpatient (REF) | payer MEDICARE, SELFPAY ==
[2022-08-11 12:52] LABS: MANUAL DIFF FLAG NO
[2022-08-11 13:20] LABS: Basophils Absolute Auto 0.1 X10*3/uL (0.0-0.2); Basophils Percent Auto 0.7 % (0-2); Eosinophils Percent Auto 0.4 % (0-4); Hematocrit 41.6 % (37.0-47.0); Hemoglobin 13.6 g/dl (12.0-16.0); Imm Gran Abs Auto 0.04 X10*3/uL (0.00-0.03); Imm Gran Pct Auto 0.6 % (0.0-0.4); Lymphocytes Percent Auto 14.3 % (20-40); Mean Corpuscular HGB Conc 32.7 g/dl (31.0-35.0); Mean Corpuscular Hemoglobin 31.3 pg (27.0-33.0); Mean Corpuscular Volume 95.9 fL (80.0-98.0); Mean Platelet Volume 11.8 fL (9.4-12.3); Monocytes Absolute Auto 0.7 X10*3/uL (0.1-1.2); Monocytes Percent Auto 10.2 % (2-11); Neutrophils Absolute Auto 5.3 x10*3/uL (2.0-8.3); Neutrophils Percent Auto 73.8 % (45-73); Platelet Count 315 X10*3/uL (160-400); Red Blood Count 4.34 X10*6/uL (4.20-5.50); Red Cell Distribution Width 13.7 % (11.0-16.0); White Blood Count 7.2 X10*3/uL (4.8-10.8)
[2022-08-11 13:43] LABS: Alanine Aminotransferase 21 U/L (0-31); Albumin Level 3.5 g/dL (3.5-5.0); Alkaline Phosphatase 71 U/L (39-117); Anion Gap 15 (12-20); Aspartate Amino Transferase 24 U/L (5-31); Bilirubin Total 0.8 mg/dL (0.0-1.0); Blood Urea Nitrogen 14 mg/dL (9-16); Calcium 9.3 mg/dL (8.4-10.2); Carbon Dioxide 24 mmol/L (22-29); Chloride 105 mmol/L (96-108); Estimated Glomerular Filt Rate 36; Glucose Random 113 mg/dL (60-115); Potassium 4.2 mmol/L (3.3-5.1); Sodium 140 mmol/L (135-145); Total Protein 5.9 g/dL (6.5-8.0)
== END 2022-08-11 11:40 | disposition home or self-care (01) ==
LOC: HO.MANLDS 11:39
PROVIDERS: Visit Provider Internal Medicine
DX: I48.91 Unspecified atrial fibrillation (principal)
CPT/HCPCS: 36415; 80053; 84443; 85025

== ENCOUNTER → 2022-08-14 13:59 | Outpatient (REF) | payer MEDICARE, SELFPAY ==
--- NOTE | 2022-08-14 14:08 | ECG_ITS ---
Test Reason : possible afib Blood Pressure : / mmHG Vent. Rate : 101 BPM Atrial Rate : 000 BPM P-R Int : 000 ms QRS Dur : 078 ms QT Int : 344 ms P-R-T Axes : 000 000 020 degrees QTc Int : 446 ms Normal sinus rhythm In the middle part of EKG, run of atrial tachycardia Abnormal ECG When compared with ECG of 23-MAR-2020 13:16, rhythm change Referred By: Jl Hameed Electronically Signed By:FUNMILAYO PAYTON
== END ==
LOC: HO.CARD 13:59
PROVIDERS: PCP Internal Medicine; Visit Provider Internal Medicine
DX: I48.91 Unspecified atrial fibrillation (principal)
CPT/HCPCS: 93005

== ENCOUNTER 2022-09-08 09:50 | Outpatient (REF) | payer MEDICARE, SELFPAY ==
[2022-09-08 11:34] LABS: MANUAL DIFF FLAG NO
[2022-09-08 11:41] LABS: Basophils Percent Auto 0.5 % (0-2); Eosinophils Absolute Auto 0.1 X10*3/uL (0.0-0.4); Eosinophils Percent Auto 1.6 % (0-4); Hematocrit 36.3 % (37.0-47.0); Hemoglobin 11.5 g/dl (12.0-16.0); Imm Gran Abs Auto 0.02 X10*3/uL (0.00-0.03); Imm Gran Pct Auto 0.4 % (0.0-0.4); Lymphocytes Absolute Auto 1.3 X10*3/uL (1.2-4.9); Lymphocytes Percent Auto 23.2 % (20-40); Mean Corpuscular HGB Conc 31.7 g/dl (31.0-35.0); Mean Corpuscular Volume 91.7 fL (80.0-98.0); Mean Platelet Volume 11.2 fL (9.4-12.3); Monocytes Absolute Auto 0.5 X10*3/uL (0.1-1.2); Monocytes Percent Auto 8.5 % (2-11); Neutrophils Absolute Auto 3.6 x10*3/uL (2.0-8.3); Neutrophils Percent Auto 65.8 % (45-73); Platelet Count 296 X10*3/uL (160-400); Red Blood Count 3.96 X10*6/uL (4.20-5.50); Red Cell Distribution Width 14.1 % (11.0-16.0); White Blood Count 5.5 X10*3/uL (4.8-10.8)
[2022-09-08 12:14] LABS: Erythrocyte Sedimentation Rate 80 MM/HR (0-20)
[2022-09-08 12:18] LABS: Alanine Aminotransferase 10 U/L (0-31); Albumin Level 3.2 g/dL (3.5-5.0); Alkaline Phosphatase 138 U/L (39-117); Amylase 33 U/L (28-100); Anion Gap 14 (12-20); Aspartate Amino Transferase 18 U/L (5-31); Bilirubin Total 0.5 mg/dL (0.0-1.0); Blood Urea Nitrogen 9 mg/dL (9-16); C Reactive Protein 9.14 mg/dL (< or = 0.50); Calcium 9.2 mg/dL (8.4-10.2); Carbon Dioxide 26 mmol/L (22-29); Chloride 106 mmol/L (96-108); Estimated Glomerular Filt Rate 49; Gamma Glutamyl Transpeptidase 69 U/L (7-33); Glucose Random 108 mg/dL (60-115); Iron 30 mcg/dL (30-160); Lipase 13 U/L (8-78); Percent Iron Saturation 17 % (15-50); Potassium 4.3 mmol/L (3.3-5.1); Sodium 142 mmol/L (135-145); Total Iron Binding Capacity 174 mcg/dL (228-428); Total Protein 6.1 g/dL (6.5-8.0); Unsaturated Iron Binding 144 ug/dL
[2022-09-08 12:32] LABS: Ferritin 159 ng/mL (10-250)
== END 2022-09-08 09:51 | disposition home or self-care (01) ==
LOC: HO.MANLDS 09:50
PROVIDERS: Visit Provider Physician Assistant
DX: R11.2 Nausea with vomiting, unspecified (principal); K52.9 Noninfective gastroenteritis and colitis, unspecified; K29.70 Gastritis, unspecified, without bleeding
CPT/HCPCS: 36415; 80053; 82150; 82728; 82977; 83540; 83690; 85025; 85652; 86140

== ENCOUNTER 2022-09-15 10:21 | Emergency (ER) | payer MEDICARE, SELFPAY ==
[2022-09-15] VITALS (7 sets, daily range): BP systolic 146–200; BP diastolic 77–90; PULSE 74–95; RESP 13–19; TEMP 36.6–36.8; O2SAT 96–99; BMI 27.4
--- NOTE | ~2022-09-15 | CT_ITS ---
EXAMINATION: CT ABDOMEN AND PELVIS WITH CONTRAST CLINICAL INFORMATION: Abdominal pain and weight loss COMPARISON: Previous CT of the abdomen and pelvis February 2018, pelvic ultrasound March 2018 and renal ultrasound April 2022 TECHNIQUE: Multidetector volumetric images were obtained from the superior aspect of the liver through the pubic symphysis following administration 85 mL of Omnipaque 350 intravenous contrast. Sagittal and coronal reformatted images were obtained on the technologist's workstation. Oral contrast: Yes This CT examination was performed using dose optimization techniques as appropriate, variously including the following: *Automated exposure control *Adjustment of mA and/or kV according to patient size (this includes techniques or standardized protocols for targeted exams where dose is matched to indication/reason for exam; i.e. extremities or head) *Use of iterative reconstruction technique DLP: 564 mGy-cm FINDINGS: LUNG BASES: The lung bases are clear. Elevated right hemidiaphragm. Esophageal hernia. LIVER, GALLBLADDER, AND BILIARY TREE: The liver is normal in size, shape, and attenuation. No focal hepatic lesion or biliary ductal dilatation is present. The gallbladder has been removed. PANCREAS: Unremarkable. SPLEEN: Unremarkable. ADRENAL GLANDS: Unremarkable. KIDNEYS AND URETERS: The kidneys are normal in size, shape, and attenuation. No hydronephrosis, hydroureter, or calculi seen. Bilateral renal cysts. No imaging follow-up recommended. No perinephric stranding. BLADDER: Unremarkable. GASTROINTESTINAL TRACT: There are postsurgical changes to the sigmoid colon. There is mild diverticulosis of the colon. No evidence of diverticulitis. Small umbilical hernia containing small bowel. No evidence of obstruction. The small and large bowel are otherwise unremarkable. The appendix is unremarkable. ABDOMINAL WALL: Small umbilical hernia containing small bowel. No evidence of obstruction. Postsurgical changes to the abdominal wall. LYMPH NODES: No enlarged lymph nodes. No ascites. VASCULAR: Atherosclerotic disease. No aneurysm. PELVIC VISCERA: Large right adnexal cyst measuring 12.6 x 10.4 x 9.4 cm in dimension. This has a small focus of wall calcification. This is increased in size from 4 x 5 cm on February 2018 exam. OSSEOUS STRUCTURES: Degenerative changes of the spine. Mild anterior subluxation of L4 with respect L5 probably related to facet arthritis. Mild degenerative changes at the hip joints. CT/CT abdomen pelvis w IV con IMPRESSION: Diverticulosis of the colon. No evidence of diverticulitis. Small umbilical hernia containing small bowel. No evidence of obstruction. Large right adnexal cyst measuring 12.6 x 10.4 x 9.4 cm. This is increased in size from 4 x 5 cm on February 2018 exam. CARDIOVASCULAR SONOGRAPHER consultation recommended. Elevated right hemidiaphragm. Esophageal hernia. Fleischner guidelines were followed.
[2022-09-15 10:46] LABS: MANUAL DIFF FLAG NO
[2022-09-15 10:50] LABS: Basophils Percent Auto 0.6 % (0-2); Eosinophils Absolute Auto 0.1 X10*3/uL (0.0-0.4); Eosinophils Percent Auto 1.8 % (0-4); Hematocrit 35.2 % (37.0-47.0); Hemoglobin 11.2 g/dl (12.0-16.0); Imm Gran Abs Auto 0.01 X10*3/uL (0.00-0.03); Imm Gran Pct Auto 0.2 % (0.0-0.4); Lymphocytes Absolute Auto 1.2 X10*3/uL (1.2-4.9); Lymphocytes Percent Auto 23.2 % (20-40); Mean Corpuscular HGB Conc 31.8 g/dl (31.0-35.0); Mean Corpuscular Hemoglobin 28.8 pg (27.0-33.0); Mean Corpuscular Volume 90.5 fL (80.0-98.0); Mean Platelet Volume 10.6 fL (9.4-12.3); Monocytes Absolute Auto 0.6 X10*3/uL (0.1-1.2); Monocytes Percent Auto 11.7 % (2-11); Neutrophils Absolute Auto 3.1 x10*3/uL (2.0-8.3); Neutrophils Percent Auto 62.5 % (45-73); Platelet Count 348 X10*3/uL (160-400); Red Blood Count 3.89 X10*6/uL (4.20-5.50)
[2022-09-15 11:09] LABS: Anion Gap 17 (12-20); Blood Urea Nitrogen 9 mg/dL (9-16); Calcium 9.2 mg/dL (8.4-10.2); Carbon Dioxide 22 mmol/L (22-29); Chloride 105 mmol/L (96-108); Creatinine Clr Calc Pharmacy 36.5; Estimated Glomerular Filt Rate 44; Glucose Random 97 mg/dL (60-115); Magnesium 1.5 mg/dL (1.6-2.6); Potassium 3.4 mmol/L (3.3-5.1); Sodium 141 mmol/L (135-145)
--- NOTE | 2022-09-15 11:26 | ED_ITS ---
HPI - General Adult General Chief complaint: Abdominal Pain Stated complaint: Abd pain/Nausea Time Seen by Provider: 09/15/22 11:26 Source: patient and family (daughter) Mode of arrival: ambulatory Limitations: no limitations History of Present Illness HPI narrative: Patient is an 86-year-old female with history of breast cancer, iron deficiency anemia, and diverticulitis with resection of colon and ostomy which was later reversed presenting with five weeks of abdominal pain and nausea. She reports a ten pound weight loss over the past 3 weeks. She reports that her nausea is improved with laying down, and worsens with standing. She reports constant nausea, worse in the morning. She reports one episode of non-bilious, non- bloody emesis and frequent episodes of dry heaves in the morning. She reports 2-3 months of diarrhea which has since improved but states that now her bowel movements are soft, small pieces. She reports feeling lightheaded at times. She denies current chest pain or shortness of breath. She has seen her PCP, Dr. Hameed, regarding her symptoms and was told that her liver enzymes were elevated. She was prescribed Zofran which did not relieve her nausea. She was prescribed Bentyl yesterday and took 1 dose and felt that this did not help her symptoms either. She denies any fevers. MD complaint: abdominal pain Onset (ago): week(s) Location: abdomen Radiation: non-radiation Severity: moderate Quality: aching Pain Consistency: constant Relieving factors: none Associated symptoms: loss of appetite and nausea/vomiting Treatments prior to arrival: other (Zofran, bentyl) Related Data Home Medications Medication Instructions Recorded Confirmed fluoxetine 20 mg capsule 1 cap PO DAILY 04/04/20 04/09/22 latanoprost 0.005 % eye drops 1 drp ophthalmic (eye) DAILY 04/04/20 04/09/22 sucralfate 1 gram tablet 1 g PO DAILY 04/04/20 04/09/22 sumatriptan succinate 100 mg tablet 1 tab PO DIRECTED PRN Migraine 04/04/20 04/09/22 Headache ferrous sulfate 325 mg (65 mg 325 mg PO DAILY 07/02/20 04/09/22 iron) tablet (iron) omeprazole 20 mg capsule,delayed 20 mg PO DAILY 04/08/21 04/09/22 release prednisone 20 mg tablet 2 tab PO DAILY 04/09/22 04/09/22 Previous Rx's Medication Instructions Recorded acetaminophen 500 mg tablet 500 mg PO Q6H PRN pain or fever 03/23/20 (Tylenol Extra Strength) #20 tabs cephalexin 500 mg capsule 500 mg PO QID #27 caps 09/15/22 Allergies Allergy/AdvReac Type Severity Reaction Status Date / Time Penicillins Allergy Mild RASH Verified 04/09/22 13:13 [id number] Reductase Allergy Mild RASH Verified 04/09/22 13:13 Inhibitor [Statins: Hmg-Coa Reductase Inhibito] levofloxacin [From LEVAQUIN] Allergy Unknown RED RASH Verified 04/09/22 13:13 gabapentin Allergy Unknown Verified 04/09/22 13:13 pregabalin [From Lyrica] Allergy Unknown Verified 04/09/22 13:13 Review of Systems Review of Systems: Yes all other systems are reviewed and are negative Constitutional: Constitutional: Reports poor appetite and Reports weight loss Eyes: Eyes: Reports no additional eye complaints ENT: Reports system reviewed and no additional complaints, except as documented Cardiovascular: Cardiovascular: Reports no additional cardiovascular complaints Respiratory: Respiratory: Reports no additional respiratory complaints Gastrointestinal: Gastrointestinal: Reports abdominal pain, Reports change in bowel habits, Reports nausea and Reports vomiting Genitourinary: Genitourinary: Reports no additional female genitourinary complaints Musculoskeletal: Musculoskeletal: Reports no additional musculoskeletal complaints Integumentary/Breasts: Skin/Breast: Reports system reviewed and no additional complaints, except as docu Neurologic: Reports system reviewed and no additional complaints, except as documented Psychiatric: Psychiatric: Reports no additional psychiatric complaints Endocrine: Endocrine: Reports no additional endocrine complaints Hematologic/Lymphatic: Hematologic/Lymphatic: Reports no additional hematologic/lymphatic complaints Allergic/Immunologic: Allergic/Immunologic: Reports no additional allergic/immunologic complaints [facility] Past Medical History Attestation statement: The following information was validated with the patient. Source: old records reviewed and nursing notes reviewed Medical History Cataracts, bilateral Cholecystectomy planned Diverticulitis FH: total knee replacement Hx of breast cancer Iron deficiency anemia Surgical History Cataract H/O colonoscopy H/O total knee replacement History of colostomy reversal Family History Family History Sister Breast cancer Diabetes Mother Diabetes Social History Social History Household Members: Children Housing: House Are you a primary progressive care manager to a significant other at home: No Do you presently have visiting nurse or other home services: No Alcohol intake: never Patient Tobacco Use Status: Former Tobacco user Smoked in Last 30 Days: No Use of substances other than those prescribed or required for medical reasons: No Advance Directives: Yes Advance Directives Information Provided: Yes Advance Directives on File: No service: No Current occupational status: retired Physical Exam ED Vital Signs: Vital Signs - 24 hr 09/15/22 10:26 09/15/22 12:18 09/15/22 14:17 Temperature 98 F 98.3 F Pulse Rate 95 74 76 Respiratory Rate 16 16 13 Blood Pressure 148/77 H 165/79 H 159/84 H Pulse Oximetry 99 98 97 Oxygen Delivery Method Room Air Room Air Room Air 09/15/22 16:30 09/15/22 17:00 Temperature Pulse Rate 89 85 Respiratory Rate 16 19 Blood Pressure 200/90 H 178/89 H Pulse Oximetry 98 Oxygen Delivery Method Room Air BMI result Body Mass Index 27.4 Vital signs have been reviewed and appear to be correct. Blood pressure mildly elevated. Heart rate normal. Respiratory rate normal. Temperature normal. Oxygen saturation normal. Const General: cooperative, healthy appearing and no acute distress Orientation/consciousness: oriented to person, oriented to place, oriented to time and patient oriented x3 Limitations: no limitations HENMT Head: Yes normocephalic and Yes atraumatic Ears: external ears normal General nose exam: Normal external nose present Face and sinus: Yes face symmetric Mouth: oropharynx normal and moist mucous membranes Throat: Yes uvula midline Eyes Pupils: Equal, round and reactive pupils present Neck Neck: Yes normal visual inspection and Yes supple Resp Effort & Inspection: normal respiratory effort and able to speak in complete sentences Auscultation: clear to auscultation bilaterally Cardio Rate: regular rate Rhythm: regular rhythm Heart sounds: S1 normal heart sound present and S2 normal heart sound present GI Inspection: Yes normal to inspection and Yes scar Palpation (GI): Soft to palpation and Tenderness to palpation present (GI) in the LLQ, in the RLQ, in the LUQ and in the RUQ; with no rebound tenderness Auscultation: normoactive bowel sounds General: Yes no CVA tenderness Back/Spine/Pelvis Back: no CVA tenderness Skin General skin exam: elasticity normal and turgor normal Neuro General: oriented to person, oriented to place, oriented to time, patient oriented x3, moves all extremities, no focal motor deficits and CN's II-XI intact bilaterally Cranial nerves: Yes Equal, round and reactive pupils present Cognition (Neuro): normal cognition Extrem General: Yes full ROM, Yes no pedal edema and Yes no calf tenderness Psych Mental Status: mental status grossly normal Affect: normal affect Thought process: Normal thought process present Course Course Course Narrative: 15:13 FINDINGS: LUNG BASES: The lung bases are clear. Elevated right hemidiaphragm. Esophageal hernia. LIVER, GALLBLADDER, AND BILIARY TREE: The liver is normal in size, shape, and attenuation. No focal hepatic lesion or biliary ductal dilatation is present. The gallbladder has been removed. PANCREAS: Unremarkable.? SPLEEN: Unremarkable.? ADRENAL GLANDS: Unremarkable.? KIDNEYS AND URETERS: The kidneys are normal in size, shape, and attenuation. No hydronephrosis, hydroureter, or calculi seen. Bilateral renal cysts. No imaging follow-up recommended. No perinephric stranding. ? BLADDER: Unremarkable.? GASTROINTESTINAL TRACT: There are postsurgical changes to the sigmoid colon. There is mild diverticulosis of the colon. No evidence of diverticulitis. Small umbilical hernia containing small bowel. No evidence of obstruction. The small and large bowel are otherwise unremarkable. The appendix is unremarkable.? ABDOMINAL WALL: Small umbilical hernia containing small bowel. No evidence of obstruction. Postsurgical changes to the abdominal wall. LYMPH NODES: No enlarged lymph nodes. No ascites. VASCULAR: Atherosclerotic disease. No aneurysm. PELVIC VISCERA: Large right adnexal cyst measuring 12.6 x 10.4 x 9.4 cm in dimension. This has a small focus of wall calcification. This is increased in size from 4 x 5 cm on February 2018 exam. OSSEOUS STRUCTURES: Degenerative changes of the spine. Mild anterior subluxation of L4 with respect L5 probably related to facet arthritis. Mild degenerative changes at the hip joints.? CT/CT abdomen pelvis w IV con IMPRESSION: Diverticulosis of the colon. No evidence of diverticulitis. Small umbilical hernia containing small bowel. No evidence of obstruction. Large right adnexal cyst measuring 12.6 x 10.4 x 9.4 cm. This is increased in size from 4 x 5 cm on February 2018 exam. CUSTOMS COMPLIANCE ANALYST consultation recommended. Elevated right hemidiaphragm. Esophageal hernia. ? Fleischner guidelines were followed. 15:15 [place] text sent to Dr. Mcleod. He does not feel ultrasound would be beneficial at this time as patient does not have signs of acute torsion. He recommends patient follow up with [facility] CUSTOMS COMPLIANCE ANALYST/ONC without patient as patient has been able to tolerate p.o. at home. 15:[address] scan with patient and daughter, all questions answered, patient and daughter agreeable to plan of care. Reevaluation(s) Reevaluation #1: I spoke to Dr. Shani Marshall who recommends patient being transferred to a facility with Gynecology Oncology, I reached out to [facility]ne [facility] who accepts adm ission Dr. Carvalho. I did explain this plan with patient and daughter who is at the bedside. They both agree with this. Plan is to transfer at this time. [facility] does request that if patient's urine culture results and patient is still at [facility] for them to receive a phone call with results if abnormal. [facility] also requesting a disc if [address] scan as well as today's CT scan, I did request these images to Radiology. Who tells me they are working on the disc. Time: 17:58 Medications Administered Discontinued Medications Generic Name Dose Route Start Last Admin Trade Name Freq PRN Reason Stop Dose Admin Cephalexin HCl 500 mg 09/15/22 16:07 09/15/22 16:28 Cephalexin 500 Mg Capsule PO 09/15/22 16:08 500 mg ONCE ONE Administration Magnesium Sulfate 2 gm in 50 mls @ 25 mls/hr 09/15/22 11:30 09/15/22 16:08 Magnesium Sulfate/H2o IV 09/15/22 13:29 Infused ONCE ONE Infusion Iohexol 100 ml 09/15/22 13:32 09/15/22 13:32 Iohexol 350 Mg/Ml 100 Ml Infus..Btl IV 09/15/22 13:33 85 ml ONCE ONE Administration Potassium Chloride 20 meq 09/15/22 11:30 09/15/22 12:04 Potassium Chloride Er 20 Meq Tab.Er.Prt PO 09/15/22 11:31 20 meq ONCE ONE Administration Medical Decision Making Medical Decision Making MDM Narrative: Patient is an 86-year-old female with history of breast cancer, iron deficiency anemia, and diverticulitis with resection of colon and ostomy which was later reversed presenting with five weeks of abdominal pain and nausea. On exam patient is awake, A+Ox3, in no acute distress, abdomen is diffusely tender without guarding or rebound tenderness. Concern for diverticulitis, cholecystitis, pancreatitis, malignancy/mass, bowel obstruction, ACS, UTI/pyelonoephritis. Unlikely AAA rupture, aortic dissection, mesenteric ischemia. Mag noted to be low on labs, will replace with 2g IV, will also give PO potassium. Plan: EKG, labs, CT abdomen/pelvis, UA, reassess Please refer to course for remaining clinical decision making. Differential Diagnosis Differential Diagnoses: The differential diagnosis associated with the presentation includes As above Admission/Observation Consideration of admission/observation: Escalation of care including admission/observation considered Consult Healthcare Provider Management of the patient was discussed with: Garland Machine Operator (Dr. Mcleod) Lab Data [facility] Lab Attestation statement: I reviewed the patient's lab results. 09/15/22 10:41 09/15/22 10:41 Labs: Lab Results 09/15/22 09/15/22 09/15/22 Range/Units 10:41 10:41 11:55 WBC 5.0 (4.8-10.8) X10*3/uL RBC 3.89 L (4.20-5.50) X10*6/uL Hgb 11.2 L (12.0-16.0) g/dl Hct 35.2 L (37.0-47.0) % MCV 90.5 (80.0-98.0) fL MCH 28.8 (27.0-33.0) pg MCHC 31.8 (31.0-35.0) g/dl RDW 14.0 (11.0-16.0) % Plt Count 348 (160-400) X10*3/uL MPV 10.6 (9.4-12.3) fL Immature Gran % (Auto) 0.2 (0.0-0.4) % Neut % (Auto) 62.5 (45-73) % Lymph % (Auto) 23.2 (20-40) % Clinch % (Auto) 11.7 H (2-11) % Eos % (Auto) 1.8 (0-4) % Baso % (Auto) 0.6 (0-2) % Lymph # (Auto) 1.2 (1.2-4.9) X10*3/uL Clinch # (Auto) 0.6 (0.1-1.2) X10*3/uL Eos # (Auto) 0.1 (0.0-0.4) X10*3/uL Baso # (Auto) 0.0 (0.0-0.2) X10*3/uL Abs Immat Gran (auto) 0.01 (0.00-0.03) X10*3/uL Absolute Neuts (auto) 3.1 (2.0-8.3) x10*3/uL Absolute Nucleated RBC 0.000 (0.0-0.012) X10*3/uL Nucleated RBC % (auto) 0.0 (0.0-0.2) /100WBC PT 12.9 (10.0-13.1) SEC INR 1.1 (0.9-1.1) Sodium 141 (135-145) mmol/L Potassium 3.4 D (3.3-5.1) mmol/L Chloride 105 (96-108) mmol/L Carbon Dioxide 22 (22-29) mmol/L Anion Gap 17 (12-20) BUN 9 (9-16) mg/dL Creatinine 1.16 (0.5-1.4) mg/dL Estim Creat Clear Calc 36.5 Estimated GFR 44 Random Glucose 97 (60-115) mg/dL Calcium 9.2 (8.4-10.2) mg/dL Magnesium 1.5 L (1.6-2.6) mg/dL Total Bilirubin 0.6 (0.0-1.0) mg/dL Direct Bilirubin 0.2 (0.0-0.5) mg/dL AST 16 (5-31) U/L ALT 8 (0-31) U/L Alkaline Phosphatase 122 H (39-117) U/L Troponin I High Sens (<3.5-17.0) ng/L Total Protein 6.5 (6.5-8.0) g/dL Albumin 3.3 L (3.5-5.0) g/dL Lipase 12 (8-78) U/L Urine Color Urine Appearance Urine pH (5.0-9.0) Ur Specific [place] (1.005-1.025) Urine Protein (Neg-Trace) mg/dL Urine Glucose (UA) (Negative) mg/dL Urine Ketones (Negative) mg/dL Urine Blood (Negative) Urine Nitrite (Negative) Ur Leukocyte Esterase (Negative) Urine RBC (0-2) /HPF Urine WBC (0-5) /HPF Ur Squamous Epith Cells (0-2) /HPF Urine Bacteria (None Seen) Hyaline Casts (0-2) /LPF COVID-19 ([facility]) (Negative) COVID-19 Clin Com 09/15/22 09/15/22 09/15/22 Range/Units 13:12 14:12 16:50 WBC (4.8-10.8) X10*3/uL RBC (4.20-5.50) X10*6/uL Hgb (12.0-16.0) g/dl Hct (37.0-47.0) % MCV (80.0-98.0) fL MCH (27.0-33.0) pg MCHC (31.0-35.0) g/dl RDW (11.0-16.0) % Plt Count (160-400) X10*3/uL MPV (9.4-12.3) fL Immature Gran % (Auto) (0.0-0.4) % Neut % (Auto) (45-73) % Lymph % (Auto) (20-40) % Clinch % (Auto) (2-11) % Eos % (Auto) (0-4) % Baso % (Auto) (0-2) % Lymph # (Auto) (1.2-4.9) X10*3/uL Clinch # (Auto) (0.1-1.2) X10*3/uL Eos # (Auto) (0.0-0.4) X10*3/uL Baso # (Auto) (0.0-0.2) X10*3/uL Abs Immat Gran (auto) (0.00-0.03) X10*3/uL Absolute Neuts (auto) (2.0-8.3) x10*3/uL Absolute Nucleated RBC (0.0-0.012) X10*3/uL Nucleated RBC % (auto) (0.0-0.2) /100WBC PT (10.0-13.1) SEC INR (0.9-1.1) Sodium (135-145) mmol/L Potassium (3.3-5.1) mmol/L Chloride (96-108) mmol/L Carbon Dioxide (22-29) mmol/L Anion Gap (12-20) BUN (9-16) mg/dL Creatinine (0.5-1.4) mg/dL Estim Creat Clear Calc Estimated GFR Random Glucose (60-115) mg/dL Calcium (8.4-10.2) mg/dL Magnesium (1.6-2.6) mg/dL Total Bilirubin (0.0-1.0) mg/dL Direct Bilirubin (0.0-0.5) mg/dL AST (5-31) U/L ALT (0-31) U/L Alkaline Phosphatase (39-117) U/L Troponin I High Sens 9.7 (<3.5-17.0) ng/L Total Protein (6.5-8.0) g/dL Albumin (3.5-5.0) g/dL Lipase (8-78) U/L Urine Color Yellow Urine Appearance Clear Urine pH 6.0 (5.0-9.0) Ur Specific [place] 1.015 (1.005-1.025) Urine Protein 30 (1+) H (Neg-Trace) mg/dL Urine Glucose (UA) Negative (Negative) mg/dL Urine Ketones Trace (Negative) mg/dL Urine Blood Negative (Negative) Urine Nitrite Positive H (Negative) Ur Leukocyte Esterase Moderate (2+) H (Negative) Urine RBC 0-2 (0-2) /HPF Urine WBC >50 H (0-5) /HPF Ur Squamous Epith Cells 0-2 (0-2) /HPF Urine Bacteria 4+ (None Seen) Hyaline Casts 3-5 (0-2) /LPF COVID-19 ([facility]) Negative (Negative) COVID-19 Clin Com See Note Independent Interpretation I performed an independent interpretation of an: EKG and CT Scan Interpretation: EKG: sinus rhythm with PACs, rate 78 bpm, normal LA and QT intervals. I independently reviewed the CT scan and agree with the radiologist's interpretation. Radiology Impression Discussion of test interpretation with radiology: I have reviewed the radiologist's reading. Radiologist Impression: FINDINGS: LUNG BASES: The lung bases are clear. Elevated right hemidiaphragm. Esophageal hernia. LIVER, GALLBLADDER, AND BILIARY TREE: The liver is normal in size, shape, and attenuation. No focal hepatic lesion or biliary ductal dilatation is present. The gallbladder has been removed. PANCREAS: Unremarkable.? SPLEEN: Unremarkable.? ADRENAL GLANDS: Unremarkable.? KIDNEYS AND URETERS: The kidneys are normal in size, shape, and attenuation. No hydronephrosis, hydroureter, or calculi seen. Bilateral renal cysts. No imaging follow-up recommended. No perinephric stranding. ? BLADDER: Unremarkable.? GASTROINTESTINAL TRACT: There are postsurgical changes to the sigmoid colon. There is mild diverticulosis of the colon. No evidence of diverticulitis. Small umbilical hernia containing small bowel. No evidence of obstruction. The small and large bowel are otherwise unremarkable. The appendix is unremarkable.? ABDOMINAL WALL: Small umbilical hernia containing small bowel. No evidence of obstruction. Postsurgical changes to the abdominal wall. LYMPH NODES: No enlarged lymph nodes. No ascites. VASCULAR: Atherosclerotic disease. No aneurysm. PELVIC VISCERA: Large right adnexal cyst measuring 12.6 x 10.4 x 9.4 cm in dimension. This has a small focus of wall calcification. This is increased in size from 4 x 5 cm on February 2018 exam. OSSEOUS STRUCTURES: Degenerative changes of the spine. Mild anterior subluxation of L4 with respect L5 probably related to facet arthritis. Mild degenerative changes at the hip joints.? CT/CT abdomen pelvis w IV con IMPRESSION: Diverticulosis of the colon. No evidence of diverticulitis. Small umbilical hernia containing small bowel. No evidence of obstruction. Large right adnexal cyst measuring 12.6 x 10.4 x 9.4 cm. This is increased in size from 4 x 5 cm on February 2018 exam. CUSTOMS COMPLIANCE ANALYST consultation recommended. Elevated right hemidiaphragm. Esophageal hernia. ? Fleischner guidelines were followed. Independent Historian Clinical information obtained from an independent historian. History obtained from or confirmed by: Other (daughter) External Record Review External record reviewed: Inpatient record, Office record and Outpatient record Prescription Management I considered prescription management with: Antibiotic (Keflex) Discharge Plan Discharge Clinical Impression: Acute UTI, Adnexal cyst Patient Disposition: Xfer Acute Care Hospital Instructions: Urinary Tract Infection in Women (DC) Prescriptions: New cephalexin 500 mg capsule 500 mg PO QID Qty: 27 0RF Rx Instructions: First dose given in the ED No Action latanoprost 0.005 % drops 1 drp ophthalmic (eye) DAILY sumatriptan succinate 100 mg tablet 1 tab PO DIRECTED PRN (Reason: Migraine Headache) sucralfate 1 gram tablet 1 g PO DAILY fluoxetine 20 mg capsule 1 cap PO DAILY ferrous sulfate [iron] 325 mg (65 mg iron) Tablet 325 mg PO DAILY omeprazole 20 mg Capsule,Delayed Release(Dr/Ec) 20 mg PO DAILY prednisone 20 mg tablet 2 tab PO DAILY acetaminophen [Tylenol Extra Strength] 500 mg tablet 500 mg PO Q6H PRN (Reason: pain or fever) Qty: 20 0RF
--- NOTE | 2022-09-15 11:30 | ECG_ITS ---
Test Reason : abd pain Blood Pressure : / mmHG Vent. Rate : 078 BPM Atrial Rate : 068 BPM P-R Int : 152 ms QRS Dur : 078 ms QT Int : 392 ms P-R-T Axes : 000 006 020 degrees QTc Int : 446 ms Sinus rhythm with Premature atrial complexes with Aberrant conduction Otherwise normal ECG When compared with ECG of 14-AUG-2022 14:10, No significant changes seen Referred By: Aye Richardson Electronically Signed By:FUNMILAYO PAYTON
[2022-09-15] MEDS: Potassium Chloride ER 20 MEQ TAB.ER.PRT PO (12:04)
[2022-09-15 12:07] LABS: Alanine Aminotransferase 8 U/L (0-31); Albumin Level 3.3 g/dL (3.5-5.0); Alkaline Phosphatase 122 U/L (39-117); Aspartate Amino Transferase 16 U/L (5-31); Bilirubin Direct 0.2 mg/dL (0.0-0.5); Bilirubin Total 0.6 mg/dL (0.0-1.0); Lipase 12 U/L (8-78); Total Protein 6.5 g/dL (6.5-8.0)
[2022-09-15 12:07] LABS: INTERNATIONAL NORM RATIO 1.1 (0.9-1.1); Prothrombin Time 12.9 SEC (10.0-13.1)
--- NOTE | 2022-09-15 12:15 | PC.NURSE ---
pt a&o x4, pleasant, calm, and cooperative. resting quietly on stretcher in no apparent distress. daughter at bedside. pt denies pain. rr even/unlabored. vss. wctm
[2022-09-15] MEDS: iohexoL 350 MG/ML 100 ML INFUS..BTL IV (13:32)
[2022-09-15 13:49] LABS: Troponin-I High Sensitivity 9.7 ng/L (<3.5-17.0)
[2022-09-15] MEDS: Magnesium Sulfate/H2O 2 GM/50 ML PIGGYBACK IV (14:08)
[2022-09-15 14:23] LABS: Appearance Urine Clear; Color Urine Yellow; Glucose Urine UA Negative (Negative); Leukocyte Esterase Urine Moderate (2+) (Negative); Nitrite Urine Positive (Negative); Specific Gravity - Urine 1.015 (1.005-1.025); UMIC TRIGGER UACC YES; Urine Blood Negative (Negative); Urine Ketones Trace mg/dL (Negative); Urine Protein 30 (1+) mg/dL (Neg-Trace)
--- NOTE | 2022-09-15 15:51 | PM.GYNCN ---
HORTICULTURAL THERAPIST - CN: HPI Data of Consult Consult date: 09/15/22 Primary Care Provider: Jl Hameed MD Consult Narrative Narrative: I was consulted on Renita Ritchie who is a 86 year old female presented to the emergency room with five weeks of abdominal pain and nausea, no history of acute sudden sharp abdominal pain, no vaginal bleeding or discharge.? She reports a ten pound weight loss over the past 3 weeks.? The patient reports one episode of non-bilious, non-bloody emesis and frequent episodes of dry heaves in the morning.?She reports 2-3 months of diarrhea which has since improved. She denies any fevers. 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 - Review of Systems Review of Systems ROS Unobtainable: All systems reviewed & are unremarkable except as noted in HPI and below Cardiovascular: Denies Palpatations, Loss of consciousness or Chest pain Respiratory: Denies Cough, Wheezing or Shortness of breath Musculoskeletal: Denies Low back pain Gastrointestinal: Denies Heartburn, Constipation, Diarrhea, Nausea or Vomiting Genitourinary: Denies Pain with urination, Burning with urination or Urinary frequency Neurological: Denies Migranes Psychological: Denies Depression OB PMFSH Past Medical History Medical History Cataracts, bilateral Cholecystectomy planned Diverticulitis FH: total knee replacement Hx of breast cancer Iron deficiency anemia Family History Family History Sister Breast cancer Diabetes Mother Diabetes Surgical History Surgical History Cataract H/O colonoscopy H/O total knee replacement History of colostomy reversal Social History Social History Household Members: Children Housing: House Are you a primary nurse wound care to a significant other at home: No Do you presently have visiting nurse or other home services: No Alcohol intake: never Patient Tobacco Use Status: Former Tobacco user Smoked in Last 30 Days: No Use of substances other than those prescribed or required for medical reasons: No Advance Directives: Yes Advance Directives Information Provided: Yes Advance Directives on File: No service: No Current occupational status: retired Meds Allergies Allergy/AdvReac Type Severity Reaction Status Date / Time Penicillins Allergy Mild RASH Verified 04/09/22 13:13 [id number] Reductase Allergy Mild RASH Verified 04/09/22 13:13 Inhibitor [Statins: Hmg-Coa Reductase Inhibito] levofloxacin [From LEVAQUIN] Allergy Unknown RED RASH Verified 04/09/22 13:13 gabapentin Allergy Unknown Verified 04/09/22 13:13 pregabalin [From Lyrica] Allergy Unknown Verified 04/09/22 13:13 Home Medications Medication Instructions Recorded Confirmed Last Taken Type fluoxetine 20 mg capsule 1 cap PO DAILY 04/04/20 04/09/22 Unknown History latanoprost 0.005 % eye drops 1 drp ophthalmic (eye) DAILY 04/04/20 04/09/22 Unknown History sucralfate 1 gram tablet 1 g PO DAILY 04/04/20 04/09/22 Unknown History sumatriptan succinate 100 mg tablet 1 tab PO DIRECTED PRN Migraine 04/04/20 04/09/22 Unknown History Headache ferrous sulfate 325 mg (65 mg 325 mg PO DAILY 07/02/20 04/09/22 06/24/21 History iron) tablet (iron) omeprazole 20 mg capsule,delayed 20 mg PO DAILY 04/08/21 04/09/22 Unknown History release prednisone 20 mg tablet 2 tab PO DAILY 04/09/22 04/09/22 Unknown History HORTICULTURAL THERAPIST Physical Exam Vitals Vital signs: Temp Pulse Resp BP Pulse Ox O2 Del Method 98.3 F 76 13 159/84 H 97 Room Air 09/15/22 12:18 09/15/22 14:17 09/15/22 14:17 09/15/22 14:17 09/15/22 14:17 09/15/22 14:17 BMI result Body Mass Index 27.4 Constitutional General Appearance: Healthy appearing, Well-nourished and Well-developed Psychiatric Mood and Affect: active and alert, normal mood and normal affect Skin Appearance: No rashes and No lesions Lungs Respiratory Effort: No intercostal retractions Auscultation: Clear to auscultation Cardiovascular Auscultation: RRR Abdomen Auscultation/Inspection/Palpation: Normal bowel sounds, Soft, Non-distended and No tenderness Female Genitalia (Pelvic) Exam: Deferred HORTICULTURAL THERAPIST - Results Labs 09/15/22 10:41 09/15/22 10:41 Labs: Short CBC 09/15/22 Range/Units 10:41 WBC 5.0 (4.8-10.8) X10*3/uL Hgb 11.2 L (12.0-16.0) g/dl Hct 35.2 L (37.0-47.0) % Plt Count 348 (160-400) X10*3/uL BMP 09/15/22 10:41 Sodium 141 Potassium 3.4 D Chloride 105 Carbon Dioxide 22 BUN 9 Creatinine 1.16 Calcium 9.2 Liver Function 09/15/22 Range/Units 10:41 Total Bilirubin 0.6 (0.0-1.0) mg/dL Direct Bilirubin 0.2 (0.0-0.5) mg/dL AST 16 (5-31) U/L ALT 8 (0-31) U/L Alkaline Phosphatase 122 H (39-117) U/L Albumin 3.3 L (3.5-5.0) g/dL Urine 09/15/22 Range/Units 14:12 Urine Color Yellow Urine Appearance Clear Urine pH 6.0 (5.0-9.0) Ur Specific [place] 1.015 (1.005-1.025) Urine Protein 30 (1+) H (Neg-Trace) mg/dL Urine Glucose (UA) Negative (Negative) mg/dL Imaging CT scan - pelvis: Radiologist's impression: ITS Impressions Abdomen/Pelvis CT 09/15/22 13:36 IMPRESSION: Diverticulosis of the colon. No evidence of diverticulitis. Small umbilical hernia containing small bowel. No evidence of obstruction. Large right adnexal cyst measuring 12.6 x 10.4 x 9.4 cm. This is increased in size from 4 x 5 cm on February 2018 exam. HORTICULTURAL THERAPIST consultation recommended. Elevated right hemidiaphragm. Esophageal hernia. Fleischner guidelines were followed. Assessment and Plan (1) Pelvic mass: Status: Acute Discussed with the patient the large adnexal cyst by CT. The differential diagnosis discussed with the patient includes the following but not limited to: benign and malignant gynecological and non-gynecological. Since the patient;'s history includes a 5 week progressive pelvic pain with no history of acute sudden pain, and her abdominal exam is benign, ovarian torsion is unlikely currently. The patient has history of abdominal pain when she stands up associated with nausea is suspicious of torsion and detrosion, in addition the patient is not able to keep anything by mouth, therefore, recommend the insert the patient for inpatient admission at [facility] where visual communications instructor Oncology service is available. Discussed the case with BELEN Juarez Time Spent With Patient Time: Total time managing care of this patient today ____ minutes.
[2022-09-15] MEDS: cephALEXin 500 MG CAPSULE PO (16:28)
[2022-09-15 16:59] LABS: Bacteria Urine 4+ (None Seen); RBC Urine 0-2 /HPF (0-2); Squamous Epithelial Cell Urine 0-2 /HPF (0-2); UACC Culture Trigger YES; WBC Urine >50 /HPF (0-5)
[2022-09-15 17:23] LABS: COVID-19 Test Negative (Negative); IDNOW Serial# BCCEAD1C
[2022-09-15] MEDS: Morphine Sulfate 4 MG/ML CARTRIDGE IVPUSH (18:07)
[2022-09-15] MEDS: ondansetron HCL 4 MG/2 ML VIAL IVPUSH (18:10)
--- NOTE | 2022-09-15 18:50 | PC.NURSE ---
nurse to nurse report given to Silvana at [facility] [place] 3 pt to room #10 number: [phone]
--- NOTE | 2022-09-15 19:11 | MHC.EDTECH ---
pt will be going to [facility] 3 oncology [id number]. pt will be going out via [facility].
== END 2022-09-15 20:20 | disposition short-term general hospital (02) ==
PROVIDERS: Physician Assistant; Registered Nurse Emergency; Emergency Provider Emergency Medicine Emergency Medical Services; PCP Internal Medicine
DX: N39.0 Urinary tract infection, site not specified (principal); N83.201 Unspecified ovarian cyst, right side; R10.9 Unspecified abdominal pain; R11.0 Nausea; D50.9 Iron deficiency anemia, unspecified; L72.9 Follicular cyst of the skin and subcutaneous tissue, unspecified; R42 Dizziness and giddiness; N83.291 Other ovarian cyst, right side; R63.4 Abnormal weight loss; Z85.3 Personal history of malignant neoplasm of breast; Z68.27 Body mass index [BMI] 27.0-27.9, adult; Z20.822 Contact with and (suspected) exposure to COVID-19
CPT/HCPCS: 36415; 74177; 80048; 80076; 81001; 83690; 83735; 84484; 85025; 85610; 87086; 87088; 87186; 87635; 93005; 96365; 96366; 96375; 99284; 99285; J2270; J2405; J3475; Q9967

== ENCOUNTER 2022-12-12 13:19 | Inpatient (IN) | payer MEDICARE, SELFPAY ==
[2022-12-12] VITALS (12 sets, daily range): BP systolic 103–179; BP diastolic 58–87; PULSE 78–107; RESP 15–18; TEMP 36.4–37.5; O2SAT 98–100; BMI 25.5
--- NOTE | ~2022-12-12 | XR_ITS ---
EXAMINATION: XR CHEST CLINICAL INFORMATION: Weakness, shortness of breath COMPARISON: 12/28/2017 TECHNIQUE: 2 views of the chest were obtained. FINDINGS: Normal heart size. Mildly tortuous thoracic aorta with atherosclerotic calcifications. Unchanged biapical pleural thickening. The lungs are otherwise clear. No focal consolidation. No pleural effusion or pneumothorax. No acute osseous abnormality. Surgical clips are again demonstrated in the right axillary region. XR/XR chest 2V IMPRESSION: No acute disease within the chest.
--- NOTE | 2022-12-12 13:24 | ED_ITS ---
HPI - SOB/Dyspnea General Chief Complaint: Dyspnea Stated Complaint: diff breathing Time Seen by Provider: 12/12/22 13:39 Source: patient and family Mode of arrival: ambulatory Limitations: no limitations History of Present Illness HPI Narrative: 87 yo female with PMH of anemia and GI workup including colo/EGD and pill video no source of bleeding, recent partial hysterectomy at [facility] 8 weeks ago has done great - benign cysts who comes in with c/o black stools x 1 week - they did stop during procedure does take Fe but no pepto bismol. She has felt tired and run down and more fatigued. Daughter notes she is more pale. She denies CP. She did take excedrin this week x 2 for headache (hx of migraines) she normally takes no NSAIDs or aspirin but the headache bothered her. She does note that she had melena prior to this. She has no abdominal pain. Daughter also feels she has had decreased hearing x 1 week but no new medications/antibiotics/URI symptoms/trauma MD elicited complaint: shortness of breath Pertinent past history: other (anemia) Onset (ago): week(s) (1) Context: other (recent procedure) Timing: intermittent Severity: mild Exacerbating factors: exertion Relieving factors: rest Known history of: other (anemia) Associated symptoms: lightheadedness and other (weakness, melena, fatigue) Treatment prior to arrival: none Related Data Home Medications Medication Instructions Recorded Confirmed fluoxetine 20 mg capsule 1 cap PO DAILY 04/04/20 04/09/22 latanoprost 0.005 % eye drops 1 drp ophthalmic (eye) DAILY 04/04/20 04/09/22 sucralfate 1 gram tablet 1 g PO DAILY 04/04/20 04/09/22 sumatriptan succinate 100 mg tablet 1 tab PO DIRECTED PRN Migraine 04/04/20 04/09/22 Headache ferrous sulfate 325 mg (65 mg 325 mg PO DAILY 07/02/20 04/09/22 iron) tablet (iron) omeprazole 20 mg capsule,delayed 20 mg PO DAILY 04/08/21 04/09/22 release prednisone 20 mg tablet 2 tab PO DAILY 04/09/22 04/09/22 Previous Rx's Medication Instructions Recorded acetaminophen 500 mg tablet 500 mg PO Q6H PRN pain or fever 03/23/20 (Tylenol Extra Strength) #20 tabs cephalexin 500 mg capsule 500 mg PO QID #27 caps 09/15/22 Allergies Allergy/AdvReac Type Severity Reaction Status Date / Time Penicillins Allergy Mild RASH Verified 04/09/22 13:13 [id number] Reductase Allergy Mild RASH Verified 04/09/22 13:13 Inhibitor [Statins: Hmg-Coa Reductase Inhibito] levofloxacin [From LEVAQUIN] Allergy Unknown RED RASH Verified 04/09/22 13:13 gabapentin Allergy Unknown Verified 04/09/22 13:13 pregabalin [From Lyrica] Allergy Unknown Verified 04/09/22 13:13 Review of Systems Review of Systems: Constitutional : No Fever, No Chills ENT/Mouth : No sore throat, No Rhinorrhea, No Swallowing Difficulty Eyes: No Eye Pain, No Swelling, No Redness Cardiovascular : No Chest Pain, positive SOB, No Orthopnea, no Edema Respiratory : No Cough, No Sputum, No Wheezing, positive dyspnea Gastrointestinal : No Nausea, No Vomiting, No Diarrhea, No abdominal Pain, No Hematochezia, pos Melena Genitourinary : No Dysuria, No Urinary Frequency, No Hematuria Musculoskeletal : No joint pain, No Myalgias Skin : No Skin Lesions, No rash Neuro : No Weakness, No Numbness, pos Dizziness, No Headache Psych : No Anxiety/Panic, No Depression Heme/Lymph: No Bruising, No Lymphadenopathy Endocrine : No Polyuria, No Polydipsia All other systems reviewed and are negative [facility] Past Medical History Attestation statement: The following information was validated with the patient. Source: old records reviewed Medical History Cataracts, bilateral Cholecystectomy planned Diverticulitis FH: total knee replacement Hx of breast cancer Iron deficiency anemia Surgical History Cataract H/O colonoscopy H/O total knee replacement History of colostomy reversal Family History Family History Sister Breast cancer Diabetes Mother Diabetes Social History Social History Household Members: Children Housing: House Are you a primary rn home care to a significant other at home: No Do you presently have visiting nurse or other home services: No Alcohol intake: never Patient Tobacco Use Status: Former Tobacco user Advance Directives: No Advance Directives Information Provided: No service: No Current occupational status: retired Physical Exam Vital Signs: Vital Signs: Last Vital Signs Temp 98.2 F 12/12/22 14:46 Pulse 80 12/12/22 14:46 Resp 16 12/12/22 14:46 BP 119/59 L 12/12/22 14:46 Pulse Ox 100 12/12/22 14:46 O2 Del Method Room Air 12/12/22 14:46 BMI result Body Mass Index 25.5 Appearance: Alert. Oriented X3. No acute distress. Eyes: Pupils equal, round and reactive to light. pale conjunctiva ENT: Pharynx normal. TMs normal no cerumen impaction Neck: Normal inspection. Neck supple. CVS: Normal heart rate and rhythm. Pulses normal. Respiratory: No respiratory distress. Breath sounds normal. Abdomen: Soft and non-tender. incision is well healed Rectal: black stool noted on finger Skin: Skin warm and dry. Normal skin color. Normal skin turgor. Extremities: No lower extremity edema. No calf ttp Neuro: Oriented X 3. No motor deficit. No sensory deficit. Course Course Course Narrative: This is a rapid medical exam. Deferred additional HPI, ROS, PE to primary provider. 87 yo female with hisory of anemia, breast cancer in remission, recent pelvic mass with partial hyst 8 weeks at [facility] (negative for malignancy) here with SOB over last week, fatigue. +tachypnea in triage. Pulse oximeter 100% No chest pain, fevers, chills, leg swelling/leg pain Will check labs, EKG, CXR, covid/flu/rsv testing. Reevaluation(s) Reevaluation #1: lactic acidosis due to GIB and not infection or severe sepsis Medications Administered Discontinued Medications Generic Name Dose Route Start Last Admin Trade Name Freq PRN Reason Stop Dose Admin Pantoprazole Sodium 40 mg 12/12/22 14:28 12/12/22 15:02 Pantoprazole Sodium 40 Mg/10 Ml Vial IVPUSH 12/12/22 14:29 40 mg ONCE ONE Administration Medical Decision Making Medical Decision Making MDM Narrative: 87 yo female hx of anemia - prior GI work up that was negative per daughter not on thinners took 2 doses of aspirin for headache recently here with fatigue, ARCINIEGA but no infectious symptoms and no CP - she is very pale and has black stools. She denies any known post op anemia and was cleared at 6 weeks did not get transfusion that she knows of during procedure. At this time suspect UGIB - IV protonix ordered and will consult GI. She also has reported hearing loss though she could hear me during interview there is no cerumen impaction and no o ther deficits I do not see a new ototoxic drug on her med list was on erythromycin in September. Planned admit Differential Diagnosis Differential Diagnoses: The differential diagnosis associated with the presentation includes anemia, GI bleed I cannot find ototoxic drugs at this time - only took 2 doses of aspirin Admission/Observation Consideration of admission/observation: Escalation of care including admission/observation considered admit for transfusion Consult Healthcare Provider Management of the patient was discussed with: Hospitalist (will admit) and Equipment Application Specialist (Dr. Allred is aware) Lab Data MDM Lab Attestation statement: I reviewed the patient's lab results. 12/12/22 14:06 12/12/22 14:06 Labs: Lab Results 12/12/22 12/12/22 12/12/22 Range/Units 14:06 14:06 14:06 WBC 6.3 (4.8-10.8) X10*3/uL RBC 2.49 L D (4.20-5.50) X10*6/uL Hgb 6.1 L* D (12.0-16.0) g/dl Hct 20.4 L* D (37.0-47.0) % MCV 81.9 (80.0-98.0) fL MCH 24.5 L (27.0-33.0) pg MCHC 29.9 L (31.0-35.0) g/dl RDW 16.1 H (11.0-16.0) % Plt Count 392 (160-400) X10*3/uL MPV 10.1 (9.4-12.3) fL Immature Gran % (Auto) 0.3 (0.0-0.4) % Neut % (Auto) 70.2 (45-73) % Lymph % (Auto) 20.6 (20-40) % [place] % (Auto) 7.2 (2-11) % Eos % (Auto) 1.1 (0-4) % Baso % (Auto) 0.6 (0-2) % Lymph # (Auto) 1.3 (1.2-4.9) X10*3/uL [place] # (Auto) 0.5 (0.1-1.2) X10*3/uL Eos # (Auto) 0.1 (0.0-0.4) X10*3/uL Baso # (Auto) 0.0 (0.0-0.2) X10*3/uL Abs Immat Gran (auto) 0.02 (0.00-0.03) X10*3/uL Absolute Neuts (auto) 4.4 (2.0-8.3) x10*3/uL Absolute Nucleated RBC 0.000 (0.0-0.012) X10*3/uL Nucleated RBC % (auto) 0.0 (0.0-0.2) /100WBC PT 13.2 (11.1-13.3) SEC INR 1.1 (0.9-1.1) Sodium 138 (135-145) mmol/L Potassium 4.5 D (3.3-5.1) mmol/L Chloride 107 (96-108) mmol/L Carbon Dioxide 21 L (22-29) mmol/L Anion Gap 15 (12-20) BUN 35 H (9-16) mg/dL Creatinine 1.13 (0.5-1.4) mg/dL Estim Creat Clear Calc 34.3 Estimated GFR 46 Random Glucose 113 (60-115) mg/dL Lactic Acid (0.5-2.0) mmol/L Calcium 9.9 D (8.4-10.2) mg/dL Magnesium 1.9 (1.6-2.6) mg/dL Total Bilirubin 0.1 (0.0-1.0) mg/dL Direct Bilirubin < 0.2 (0.0-0.5) mg/dL AST 18 (5-31) U/L ALT 8 (0-31) U/L Alkaline Phosphatase 133 H (39-117) U/L Troponin I High Sens (<3.5-17.0) ng/L B-Natriuretic Peptide (<100) pg/mL Total Protein 7.1 (6.5-8.0) g/dL Albumin 3.1 L (3.5-5.0) g/dL Stool Occult Blood (NEGATIVE) Salicylates (15-30) mg/dL Influenza Type A (PCR) (Negative) Influenza Type B (PCR) (Negative) RSV RNA Qual (PCR) (Negative) SARS-CoV-2 RNA (RT-PCR) (Negative) Blood Type Crossmatch Blood Bank Comment 12/12/22 12/12/22 12/12/22 Range/Units 14:06 14:06 14:06 WBC (4.8-10.8) X10*3/uL RBC (4.20-5.50) X10*6/uL Hgb (12.0-16.0) g/dl Hct (37.0-47.0) % MCV (80.0-98.0) fL MCH (27.0-33.0) pg MCHC (31.0-35.0) g/dl RDW (11.0-16.0) % Plt Count (160-400) X10*3/uL MPV (9.4-12.3) fL Immature Gran % (Auto) (0.0-0.4) % Neut % (Auto) (45-73) % Lymph % (Auto) (20-40) % [place] % (Auto) (2-11) % Eos % (Auto) (0-4) % Baso % (Auto) (0-2) % Lymph # (Auto) (1.2-4.9) X10*3/uL [place] # (Auto) (0.1-1.2) X10*3/uL Eos # (Auto) (0.0-0.4) X10*3/uL Baso # (Auto) (0.0-0.2) X10*3/uL Abs Immat Gran (auto) (0.00-0.03) X10*3/uL Absolute Neuts (auto) (2.0-8.3) x10*3/uL Absolute Nucleated RBC (0.0-0.012) X10*3/uL Nucleated RBC % (auto) (0.0-0.2) /100WBC PT (11.1-13.3) SEC INR (0.9-1.1) Sodium (135-145) mmol/L Potassium (3.3-5.1) mmol/L Chloride (96-108) mmol/L Carbon Dioxide (22-29) mmol/L Anion Gap (12-20) BUN (9-16) mg/dL Creatinine (0.5-1.4) mg/dL Estim Creat Clear Calc Estimated GFR Random Glucose (60-115) mg/dL Lactic Acid 2.2 H* (0.5-2.0) mmol/L Calcium (8.4-10.2) mg/dL Magnesium (1.6-2.6) mg/dL Total Bilirubin (0.0-1.0) mg/dL Direct Bilirubin (0.0-0.5) mg/dL AST (5-31) U/L ALT (0-31) U/L Alkaline Phosphatase (39-117) U/L Troponin I High Sens 3.5 D (<3.5-17.0) ng/L B-Natriuretic Peptide 348 H (<100) pg/mL Total Protein (6.5-8.0) g/dL Albumin (3.5-5.0) g/dL Stool Occult Blood (NEGATIVE) Salicylates (15-30) mg/dL Influenza Type A (PCR) (Negative) Influenza Type B (PCR) (Negative) RSV RNA Qual (PCR) (Negative) SARS-CoV-2 RNA (RT-PCR) (Negative) Blood Type Crossmatch Blood Bank Comment 12/12/22 12/12/22 12/12/22 Range/Units 14:06 14:06 14:06 WBC (4.8-10.8) X10*3/uL RBC (4.20-5.50) X10*6/uL Hgb (12.0-16.0) g/dl Hct (37.0-47.0) % MCV (80.0-98.0) fL MCH (27.0-33.0) pg MCHC (31.0-35.0) g/dl RDW (11.0-16.0) % Plt Count (160-400) X10*3/uL MPV (9.4-12.3) fL Immature Gran % (Auto) (0.0-0.4) % Neut % (Auto) (45-73) % Lymph % (Auto) (20-40) % [place] % (Auto) (2-11) % Eos % (Auto) (0-4) % Baso % (Auto) (0-2) % Lymph # (Auto) (1.2-4.9) X10*3/uL [place] # (Auto) (0.1-1.2) X10*3/uL Eos # (Auto) (0.0-0.4) X10*3/uL Baso # (Auto) (0.0-0.2) X10*3/uL Abs Immat Gran (auto) (0.00-0.03) X10*3/uL Absolute Neuts (auto) (2.0-8.3) x10*3/uL Absolute Nucleated RBC (0.0-0.012) X10*3/uL Nucleated RBC % (auto) (0.0-0.2) /100WBC PT (11.1-13.3) SEC INR (0.9-1.1) Sodium (135-145) mmol/L Potassium (3.3-5.1) mmol/L Chloride (96-108) mmol/L Carbon Dioxide (22-29) mmol/L Anion Gap (12-20) BUN (9-16) mg/dL Creatinine (0.5-1.4) mg/dL Estim Creat Clear Calc Estimated GFR Random Glucose (60-115) mg/dL Lactic Acid (0.5-2.0) mmol/L Calcium (8.4-10.2) mg/dL Magnesium (1.6-2.6) mg/dL Total Bilirubin (0.0-1.0) mg/dL Direct Bilirubin (0.0-0.5) mg/dL AST (5-31) U/L ALT (0-31) U/L Alkaline Phosphatase (39-117) U/L Troponin I High Sens (<3.5-17.0) ng/L B-Natriuretic Peptide (<100) pg/mL Total Protein (6.5-8.0) g/dL Albumin (3.5-5.0) g/dL Stool Occult Blood (NEGATIVE) Salicylates < 5.0 L (15-30) mg/dL Influenza Type A (PCR) NEGATIVE (Negative) Influenza Type B (PCR) NEGATIVE (Negative) RSV RNA Qual (PCR) NEGATIVE (Negative) SARS-CoV-2 RNA (RT-PCR) NEGATIVE (Negative) Blood Type O Positive Crossmatch See Detail Blood Bank Comment Technical 12/12/22 Range/Units 14:44 WBC (4.8-10.8) X10*3/uL RBC (4.20-5.50) X10*6/uL Hgb (12.0-16.0) g/dl Hct (37.0-47.0) % MCV (80.0-98.0) fL MCH (27.0-33.0) pg MCHC (31.0-35.0) g/dl RDW (11.0-16.0) % Plt Count (160-400) X10*3/uL MPV (9.4-12.3) fL Immature Gran % (Auto) (0.0-0.4) % Neut % (Auto) (45-73) % Lymph % (Auto) (20-40) % [place] % (Auto) (2-11) % Eos % (Auto) (0-4) % Baso % (Auto) (0-2) % Lymph # (Auto) (1.2-4.9) X10*3/uL [place] # (Auto) (0.1-1.2) X10*3/uL Eos # (Auto) (0.0-0.4) X10*3/uL Baso # (Auto) (0.0-0.2) X10*3/uL Abs Immat Gran (auto) (0.00-0.03) X10*3/uL Absolute Neuts (auto) (2.0-8.3) x10*3/uL Absolute Nucleated RBC (0.0-0.012) X10*3/uL Nucleated RBC % (auto) (0.0-0.2) /100WBC PT (11.1-13.3) SEC INR (0.9-1.1) Sodium (135-145) mmol/L Potassium (3.3-5.1) mmol/L Chloride (96-108) mmol/L Carbon Dioxide (22-29) mmol/L Anion Gap (12-20) BUN (9-16) mg/dL Creatinine (0.5-1.4) mg/dL Estim Creat Clear Calc Estimated GFR Random Glucose (60-115) mg/dL Lactic Acid (0.5-2.0) mmol/L Calcium (8.4-10.2) mg/dL Magnesium (1.6-2.6) mg/dL Total Bilirubin (0.0-1.0) mg/dL Direct Bilirubin (0.0-0.5) mg/dL AST (5-31) U/L ALT (0-31) U/L Alkaline Phosphatase (39-117) U/L Troponin I High Sens (<3.5-17.0) ng/L B-Natriuretic Peptide (<100) pg/mL Total Protein (6.5-8.0) g/dL Albumin (3.5-5.0) g/dL Stool Occult Blood POSITIVE (NEGATIVE) Salicylates (15-30) mg/dL Influenza Type A (PCR) (Negative) Influenza Type B (PCR) (Negative) RSV RNA Qual (PCR) (Negative) SARS-CoV-2 RNA (RT-PCR) (Negative) Blood Type Crossmatch Blood Bank Comment Independent Interpretation I performed an independent interpretation of an: EKG and Plain X-Ray Interpretation: Rate: 110 Rhythm: sinus tachycardic [place]: normal Normal P waves. Normal ANATOLY. Normal QRS complex. ST T wave : no SHWETA, inverted t wave III qTC: normal prior studies: no acute ischemia The study has been interpreted contemporaneously by me. . Radiology Impression Discussion of test interpretation with radiology: I have reviewed the radiologist's reading. Independent Historian Clinical information obtained from an independent historian. History obtained from or confirmed by: Other (daughter) External Record Review External record reviewed: Inpatient record Critical Care Time Critical Care Time Critical Care Time: Yes Total Critical Care Time: 45 Attestation: 2 units of blood ordered, admission I attest to this time spent taking care of the patient Discharge Plan Discharge Clinical Impression: UGIB (upper gastrointestinal bleed), Acute anemia Patient Disposition: Admitted As Inpatient
--- NOTE | 2022-12-12 13:28 | ECG_ITS ---
Test Reason : SOB Blood Pressure : / mmHG Vent. Rate : 110 BPM Atrial Rate : 110 BPM P-R Int : 152 ms QRS Dur : 072 ms QT Int : 354 ms P-R-T Axes : 000 001 020 degrees QTc Int : 479 ms Sinus tachycardia Otherwise normal ECG When compared with ECG of 15-SEP-2022 11:47, Aberrant conduction is no longer Present Heart rate has increased Referred By: Eloisa Urbina Electronically Signed By:JESSE PRATT
[2022-12-12 14:11] LABS: MANUAL DIFF FLAG NO
[2022-12-12 14:13] LABS: Basophils Percent Auto 0.6 % (0-2); Eosinophils Absolute Auto 0.1 X10*3/uL (0.0-0.4); Eosinophils Percent Auto 1.1 % (0-4); Imm Gran Abs Auto 0.02 X10*3/uL (0.00-0.03); Imm Gran Pct Auto 0.3 % (0.0-0.4); Lymphocytes Absolute Auto 1.3 X10*3/uL (1.2-4.9); Lymphocytes Percent Auto 20.6 % (20-40); Mean Corpuscular HGB Conc 29.9 g/dl (31.0-35.0); Mean Corpuscular Hemoglobin 24.5 pg (27.0-33.0); Mean Corpuscular Volume 81.9 fL (80.0-98.0); Mean Platelet Volume 10.1 fL (9.4-12.3); Monocytes Absolute Auto 0.5 X10*3/uL (0.1-1.2); Monocytes Percent Auto 7.2 % (2-11); Neutrophils Absolute Auto 4.4 x10*3/uL (2.0-8.3); Neutrophils Percent Auto 70.2 % (45-73); Platelet Count 392 X10*3/uL (160-400); Red Blood Count 2.49 X10*6/uL (4.20-5.50); Red Cell Distribution Width 16.1 % (11.0-16.0); White Blood Count 6.3 X10*3/uL (4.8-10.8)
[2022-12-12 14:22] LABS: Hemoglobin 6.1 g/dl (12.0-16.0)
[2022-12-12 14:23] LABS: Hematocrit 20.4 % (37.0-47.0)
[2022-12-12 14:25] LABS: INTERNATIONAL NORM RATIO 1.1 (0.9-1.1); Prothrombin Time 13.2 SEC (11.1-13.3)
[2022-12-12 14:27] LABS: Lactic Acid 2.2 mmol/L (0.5-2.0); Salicylate < 5.0 mg/dL (15-30)
[2022-12-12 14:30] LABS: Alanine Aminotransferase 8 U/L (0-31); Albumin Level 3.1 g/dL (3.5-5.0); Alkaline Phosphatase 133 U/L (39-117); Anion Gap 15 (12-20); Aspartate Amino Transferase 18 U/L (5-31); Bilirubin Direct < 0.2 mg/dL (0.0-0.5); Bilirubin Total 0.1 mg/dL (0.0-1.0); Blood Urea Nitrogen 35 mg/dL (9-16); Calcium 9.9 mg/dL (8.4-10.2); Carbon Dioxide 21 mmol/L (22-29); Chloride 107 mmol/L (96-108); Creatinine Clr Calc Pharmacy 34.3; Estimated Glomerular Filt Rate 46; Glucose Random 113 mg/dL (60-115); Magnesium 1.9 mg/dL (1.6-2.6); Potassium 4.5 mmol/L (3.3-5.1); Sodium 138 mmol/L (135-145); Total Protein 7.1 g/dL (6.5-8.0)
[2022-12-12 14:33] LABS: B Type Natriuretic Peptide 348 pg/mL (<100)
[2022-12-12 14:37] LABS: Troponin-I High Sensitivity 3.5 ng/L (<3.5-17.0)
[2022-12-12 14:50] LABS: OBS1 POSITIVE (NEGATIVE)
[2022-12-12 14:51] LABS: OBS Int Ctl Valid YES
[2022-12-12] MEDS: Pantoprazole Sodium 40 MG/10 ML VIAL IVPUSH ×2 (15:02→19:27)
[2022-12-12 15:08] LABS: Influenza A PCR NEGATIVE (Negative); Influenza B PCR NEGATIVE (Negative); Resp Syncy Virus RNA Qual PCR NEGATIVE (Negative); SARS COV2 PCR INHOUSE NEGATIVE (Negative)
[2022-12-12 16:09] LABS: Reflex Lactate? Lactic Acid Added
--- NOTE | 2022-12-12 16:17 | P.HPHOSP_ITS ---
Pt seen and examined at bedside. I agree with JASMIN note, Asessment and plan/ Presentation concerning for acute GI blood loss anemia. will consult GI, PPI, transfuse PRBC as required for full H&P see below History of Present Illness Date of Service: 12/12/22 Attending physician on admission: Fred Salazar Chief Complaint: weakness, melena 87-year-old female with history of breast cancer treated with lumpectomy chemotherapy radiation, history iron deficiency anemia, unspecified mood disorder, GERD, migraines, and history of pelvic mass s/p salpingo-oophorectomy presented to the ED earlier today with her daughter for evaluation of weakness, fatigue, and black stool. There has also been lightheadedness. She reports she has been experiencing black tarry stool for about 3 weeks which she thought was related to her iron supplement. However prior to this stool was brown. Over the last week she has been developing increasing weakness, fatigue, and dyspnea on exertion. Her daughter has also noted significant pallor. Denies any fevers, chills, abdominal pain, nausea, vomiting, diarrhea, constipation, hematochezia, palpitations, or chest pain. On arrival, vital stable, no hypotension. Has had intermittent mild tachycardia. No leukocytosis. H/H 6.1/20.4%, MCV 81.9 %. Creatinine 1.13, BUN 35, oxalate levels normal. Troponin 3.5, BNP 348. Stool occult blood positive. Checks x-ray negative for any acute cardiopulmonary abnormality. EKG shows sinus tachycardia, rate [address]/T-wave abnormality. Brenda did discuss case with Gastroenterology recommending admission and will follow. While in the ED 2 units packed red blood cells ordered. Also given 40 mg IV pantoprazole. She uses aspirin occassionally for headache, took two in the last week. No other NSAIDs. Pt did have endoscopy, colonoscopy, video capsule endoscopy last year without significant findings. Review of Systems Review of Systems: General: No fevers, malaise, unintentional weight loss. +fatige, +generalized weakness HEENT: No blurred vision, diplopia. No sore throat, nasal congestion, rhinorrhea, sinus pain, ear pain Cardiovascular: No chest pain, palpitations, or leg edema Respiratory: No shortness of breath, wheezing, cough GI: +melena. No abdominal pain, nausea, vomiting, diarrhea, constipation, hematochezia : No dysuria, hematuria, increased urinary frequency, decreased urinary output MSK: No myalgia, back pain Neuro: No headaches, weakness, paresthesias. +lightheadedness Skin: No rashes or lesions [facility] Medical History Cataracts, bilateral Cholecystectomy planned Diverticulitis FH: total knee replacement Hx of breast cancer Iron deficiency anemia Migraine Family History Sister Breast cancer Diabetes Mother Diabetes Surgical History Cataract H/O colonoscopy H/O total knee replacement History of colostomy reversal Social History Household Members: Children Housing: House Are you a primary property caretaker to a significant other at home: No Do you presently have visiting nurse or other home services: No Alcohol intake: never Patient Tobacco Use Status: Former Tobacco user Smoked in Last 30 Days: No Use of substances other than those prescribed or required for medical reasons: No Advance Directives: No Advance Directives Information Provided: No Nutrition Risks: No Nutritional Risk service: No Current occupational status: retired Meds Allergies Allergy/AdvReac Type Severity Reaction Status Date / Time Penicillins Allergy Mild RASH Verified 04/09/22 13:13 Esthykd-[id number] Reductase Allergy Mild RASH Verified 04/09/22 13:13 Inhibitor [Statins: Hmg-Coa Reductase Inhibito] levofloxacin [From LEVAQUIN] Allergy Unknown RED RASH Verified 04/09/22 13:13 gabapentin Allergy Unknown Verified 04/09/22 13:13 pregabalin [From Lyrica] Allergy Unknown Verified 04/09/22 13:13 Active Medications: Current Medications Acetaminophen (Acetaminophen 325 Mg Tablet) 650 mg PO Q6H PRN PRN Reason: Pain, Mild (Pain Scale 1-3) Docusate Sodium (Docusate Sodium 100 Mg Capsule) 100 mg PO DAILY PRN PRN Reason: Constipation Ondansetron HCl (Ondansetron Hcl 4 Mg/2 Ml Vial) 4 mg IVPUSH Q8H PRN PRN Reason: Nausea and Vomiting Pantoprazole Sodium (Pantoprazole Sodium 40 Mg/10 Ml Vial) 40 mg IVPUSH BID@0630,1630 [facility] Sodium Chloride (0.9 % Sodium Chloride Flush 3 Ml Syringe) 3 ml IVFLUSH QSHIFT [facility] Home Medications Medication Instructions Recorded Confirmed Last Taken Type fluoxetine 20 mg capsule 1 cap PO DAILY 04/04/20 12/12/22 Unknown History latanoprost 0.005 % eye drops 1 drp ophthalmic (eye) BEDTIME 04/04/20 12/12/22 Unknown History sumatriptan succinate 100 mg tablet 1 tab PO DIRECTED PRN Migraine 04/04/20 12/12/22 Unknown History Headache ferrous sulfate 325 mg (65 mg 325 mg PO DAILY 07/02/20 12/12/22 06/24/21 History iron) tablet (iron) omeprazole 20 mg capsule,delayed 20 mg PO DAILY 04/08/21 12/12/22 Unknown History release acetaminophen 500 mg tablet 1,000 mg PO Q6H PRN pain or fever 12/12/22 12/12/22 Unknown History (Tylenol Extra Strength) multivitamin 1 tab PO DAILY 12/12/22 12/12/22 Unknown History polyethylene glycol 3350 17 17 g PO DAILY PRN Constipation 12/12/22 12/12/22 Unknown History gram/dose oral powder (Miralax) Physical Exam Vital Signs and Narrative: Vital Signs: Last Vital Signs Temp 98.2 F 12/12/22 14:46 Pulse 80 12/12/22 14:46 Resp 16 12/12/22 14:46 BP 119/59 L 12/12/22 14:46 Pulse Ox 100 12/12/22 14:46 O2 Del Method Room Air 12/12/22 14:46 BMI result Body Mass Index 25.5 Constitutional - Awake and Alert, No apparent distress Eyes - PERRLA, EOMI Cardiovascular - S1S2, RRR, No edema Respiratory - Normal lung expansion, Normal respiratory effort, No respiratory distress, CTA bilaterally Gastrointestinal - mild LUQ pain, ND; +BS; No rebound or guarding Extremities - no calf tenderness bilaterally, no swelling Skin - Warm/Dry Neurological - Alert & oriented x3 Psychological - Appropriate affect Results Labs 12/12/22 14:06 12/12/22 14:06 Labs: Laboratory Results - last 24 hr 12/12/22 12/12/22 12/12/22 14:06 14:06 14:06 MCV 81.9 MCH 24.5 L MCHC 29.9 L RDW 16.1 H Plt Count 392 MPV 10.1 Immature Gran % (Auto) 0.3 Neut % (Auto) 70.2 Lymph % (Auto) 20.6 [place] % (Auto) 7.2 Eos % (Auto) 1.1 Baso % (Auto) 0.6 Lymph # (Auto) 1.3 [place] # (Auto) 0.5 Eos # (Auto) 0.1 Baso # (Auto) 0.0 Abs Immat Gran (auto) 0.02 Absolute Neuts (auto) 4.4 Absolute Nucleated RBC 0.000 Nucleated RBC % (auto) 0.0 PT 13.2 INR 1.1 Anion Gap 15 Estim Creat Clear Calc 34.3 Estimated GFR 46 Random Glucose 113 Lactic Acid Calcium 9.9 D Magnesium 1.9 Total Bilirubin 0.1 Direct Bilirubin < 0.2 AST 18 ALT 8 Alkaline Phosphatase 133 H B-Natriuretic Peptide Total Protein 7.1 Albumin 3.1 L Stool Occult Blood Salicylates Influenza Type A (PCR) Influenza Type B (PCR) RSV RNA Qual (PCR) SARS-CoV-2 RNA (RT-PCR) Blood Type Antibody Screen Crossmatch Enhanced Crossmatch Blood Bank Comment 12/12/22 12/12/22 12/12/22 14:06 14:06 14:06 MCV MCH MCHC RDW Plt Count MPV Immature Gran % (Auto) Neut % (Auto) Lymph % (Auto) [place] % (Auto) Eos % (Auto) Baso % (Auto) Lymph # (Auto) [place] # (Auto) Eos # (Auto) Baso # (Auto) Abs Immat Gran (auto) Absolute Neuts (auto) Absolute Nucleated RBC Nucleated RBC % (auto) PT INR Anion Gap Estim Creat Clear Calc Estimated GFR Random Glucose Lactic Acid 2.2 H* Calcium Magnesium Total Bilirubin Direct Bilirubin AST ALT Alkaline Phosphatase B-Natriuretic Peptide 348 H Total Protein Albumin Stool Occult Blood Salicylates Influenza Type A (PCR) NEGATIVE Influenza Type B (PCR) NEGATIVE RSV RNA Qual (PCR) NEGATIVE SARS-CoV-2 RNA (RT-PCR) NEGATIVE Blood Type Antibody Screen Crossmatch Enhanced Crossmatch Blood Bank Comment 12/12/22 12/12/22 12/12/22 14:06 14:06 14:44 MCV MCH MCHC RDW Plt Count MPV Immature Gran % (Auto) Neut % (Auto) Lymph % (Auto) [place] % (Auto) Eos % (Auto) Baso % (Auto) Lymph # (Auto) [place] # (Auto) Eos # (Auto) Baso # (Auto) Abs Immat Gran (auto) Absolute Neuts (auto) Absolute Nucleated RBC Nucleated RBC % (auto) PT INR Anion Gap Estim Creat Clear Calc Estimated GFR Random Glucose Lactic Acid Calcium Magnesium Total Bilirubin Direct Bilirubin AST ALT Alkaline Phosphatase B-Natriuretic Peptide Total Protein Albumin Stool Occult Blood POSITIVE Salicylates < 5.0 L Influenza Type A (PCR) Influenza Type B (PCR) RSV RNA Qual (PCR) SARS-CoV-2 RNA (RT-PCR) Blood Type O Positive Antibody Screen NEGATIVE Crossmatch See Detail Enhanced Crossmatch See Detail Blood Bank Comment Technical Imaging Radiologist's Impressions: Impressions Chest X-Ray 12/12/22 14:28 IMPRESSION: No acute disease within the chest. Assessment and Plan (1) UGIB (upper gastrointestinal bleed): Status: Acute (2) Acute anemia: Status: Acute Plan 87-year-old female with history of breast cancer treated with lumpectomy chemotherapy radiation, history iron deficiency anemia, unspecified mood disorder, GERD, migraines, and history of pelvic mass s/p salpingo-oophorectomy admitted for acute blood loss anemia 2/2 UGIB. #Acute symptomatic blood loss anemia 2/2 UGIB -H/H 6.1/20.4%. Stool occult blood positive. Patient with melena -transfuse 2 units packed red blood cells in the ED. Administer 40 units Lasix in between units of blood as patient at risk for fluid overload -IV PPI -clear liquid diet -gastroenterology consult -follow CBC -monitor on telemetry #Asymptomatic bacteriuria -pt has urge incontinence at baseline, otherwise asymptomatic -afebrile, no luekocytosis -hold on empiric abx, await cultures # chronic iron deficiency anemia -previously required IV iron infusions -continue po iron #Unspecified mood disorder -continue fluoxetine #GERD -hold po ppi, on iv DVT prophylaxis- SCPs DNR/DNI Pt requires inpatient stay at least 2 midnights for management of symptomatic blood loss anemia secondary to upper GI bleed requiring blood transfusion, probable endoscopy, close monitoring of blood counts and cardiac function, an ex pert consultation Time Spent With Patient Time: Total time managing care of this patient today ____ minutes. Quality Stroke Does the patient have a stroke diagnosis?: No VTE Prior VTE?: No VTE Risk Level:: Medical - moderate - high VTE Device Contraindication: Treatment Not Indicated VTE Drug Contraindication: N/A - Med Ordered
--- NOTE | 2022-12-12 16:18 | PHA.MEDREC ---
Pharmacy Consult ? Medication Reconciliation Pharmacy has completed the medication reconciliation. spoke with patient and daughter to confirm medications. They also had their own at home list.
--- NOTE | 2022-12-12 16:45 | MHC.EDTECH ---
THIS PCT ASSUMED CARE OF PATIENT AT 1500 ,VITALS SIGN TAKEN ,REPEATED LACTIC ACID DRAWN AND SENT TO LAB ,PT WAS ASSISTED FOR AMBULATION TO BATHROOM AND BACK TO BED ,PT VOID LG AMOUNT OF URINE ,AND URINE SAMPLE COLLECTED AND SENT TO LAB ,ALSO PATIENT BELONGING DONE .
[2022-12-12 16:46] LABS: ~Lactic Acid-LAB USE ONLY 1.3 mmol/L (0.5-2.0)
[2022-12-12 17:00] LABS: Appearance Urine Clear; Color Urine Yellow; Glucose Urine UA Negative (Negative); Leukocyte Esterase Urine Moderate (2+) (Negative); Nitrite Urine Positive (Negative); PH 6.5 (5.0-9.0); Specific Gravity - Urine 1.015 (1.005-1.025); UMIC TRIGGER UACC YES; Urine Blood Negative (Negative); Urine Ketones Negative (Negative); Urine Protein Negative (Neg-Trace)
[2022-12-12 17:05] LABS: Bacteria Urine 4+ (None Seen); Hyaline Casts Urine 0-2 /LPF (0-2); RBC Urine 0-2 /HPF (0-2); Squamous Epithelial Cell Urine 0-2 /HPF (0-2); UACC Culture Trigger YES
--- NOTE | 2022-12-12 17:15 | PC.NURSE ---
pt aox4, ambulatory with assist. pt reporting weakness and shortness of breath with black tarry stools. 1st unit of RBS running now, will admin lasix in between units. two IVs inserted, Left AC and Left wrist. Lung sounds clear, afebrile, vitals WNL. will CTM
--- NOTE | 2022-12-12 17:49 | PC.NURSE ---
blood infusing per TAR. no distress noted, pt resting quietly. will ctm
--- NOTE | 2022-12-12 19:03 | P.EN_ITS ---
Event Note Date of Service: 12/12/22 Event Note: GI Consult-Full note dictated-History from patient and EMR Imp: 87 yo female on chronic Iron for anemia, s/p multiple GI studies in the past including EGD's, Colonoscopies, and a SB video capsule study. Her most recent colonoscopy in 06/2021 was negative. 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 She has been receiving IV Iron, but recently has only needed po Iron and things were stable. She is s/p a laparotomy for a large benign ovarian cyst in the late Spring at [facility]. She has recently been noticing darker and lennox than her usual BM's with associated pallor and weakness. She has taken a couple of Excedrin for a headache, but no other aspirin, NSAIDs, or other blood thinners. Denies tobacco or EtoH. 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 Denies any hematochezia. She has had no bleeding in the ER. Diff dx: UGI bleed due to a recurrent Dieulafoy lesion, AVM, PUD, gastritis. Rec: EGD with MAC on 12/[address] Jaime. Full consent has been obtained for this, including risks of bleeding and perforation. Transfuse to maintain Hgb > 8.5-9.0. PPI. Clear liquids for now. Call me if signs of active bleeding. D/W patient in detail and she is comfortable with this plan. I left a voicemail for her daughter, Christine. Thanks Time Spent With Patient Time: Total time managing care of this patient today ____ minutes.
--- NOTE | 2022-12-12 19:15 | MHC.SHP ---
Pre-Procedural Eval Section A Date of Service: 12/14/22 The patient is an INPATIENT: Yes The History & Physical has been completed within 30 days and I have reviewed it.: Yes Section B Chief Complaint: acute blood loss anemia Allergies: Allergies Allergy/AdvReac Type Severity Reaction Status Date / Time Penicillins Allergy Mild RASH Verified 04/09/22 13:13 Camcmdo-PSA-WvF Reductase Allergy Mild RASH Verified 04/09/22 13:13 Inhibitor [Statins: Hmg-Coa Reductase Inhibito] levofloxacin [From LEVAQUIN] Allergy Unknown RED RASH Verified 04/09/22 13:13 gabapentin Allergy Unknown Verified 04/09/22 13:13 pregabalin [From Lyrica] Allergy Unknown Verified 04/09/22 13:13 Plan I have reviewed the history and physical and performed a pertinent physical examination on my patient. No changes have occurred unless specified. Time Spent With Patient Time: Total time managing care of this patient today ____ minutes.
[2022-12-12] MEDS: Furosemide 40 MG/4 ML VIAL IVPUSH (19:48)
--- NOTE | 2022-12-12 20:35 | PC.NURSE ---
second unit of blood infusing per TAR. lasix given in between. vitals stable, lung sounds clear. will ctm
[2022-12-12] MEDS: Latanoprost 0.005 % Ophth Sol 2.5 ML DROPS 1 DROP EYE-BOTH (20:36)
--- NOTE | 2022-12-12 21:49 | MHC.EDTECH ---
2200 ROUNDING DONE ,VITALS SIGN TAKEN ,PT IS COMFORTABLE , WATCHING TELEVISION ,WILL CONTINUE TO MONITOR .
--- NOTE | 2022-12-12 23:31 | MHC.EDTECH ---
0000 ROUNDING DONE ,VITALS SIGN TAKEN ,RN MARIA FERNANDA IS AWARE OF PT HIGH BP ,1000ML URINE EMPTY FROM PURE WICK ,PT IS COMFORTABLE WATCHING TELEVISION IN BED .
--- NOTE | 2022-12-13 00:02 | PC.NURSE ---
transfusion completed at 2355.
[2022-12-13] MEDS: 0.9 % Sodium Chloride Flush 3 ML SYRINGE IVFLUSH ×4 (00:03→20:14)
[2022-12-13] MEDS: Acetaminophen 325 MG TABLET 650 MG PO ×3 (01:01→21:41)
--- NOTE | 2022-12-13 01:19 | MHC.EDTECH ---
PATIENT WAS ASSISTED WITH AMBULATION TO BATHROOM AND BACK TO BED ,PT VOID LG AMOUNT OF URINE ,PT WAS GIVEN A MORE COMFORTABLE BED ,PT IS COMFORTABLE AND IS RESTING IN BED ,WILL CONTINUE TO MONITOR .
--- NOTE | 2022-12-13 02:36 | CONS_ITS ---
DATE OF SERVICE: 12/12/2022 REASON FOR CONSULTATION: Anemia, melena, and heme-positive stool. HISTORY OF PRESENT ILLNESS: The patient is an 87-year-old female well known to me with a history of previous iron deficiency anemia. Over the years, she has had multiple upper endoscopies and colonoscopies, as well as a small bowel video capsule study. She has received periodic iron infusions in regard to anemia, but has not required any blood transfusions for least the past 1 or 2 years. In 2021 when she was having problems with significant diarrhea and some weight loss she underwent a colonoscopy that was unremarkable, including biopsies negative for any type of colitis. Her anemia seems to have started back in 2017, at which time she underwent upper endoscopy. It revealed only a hiatal hernia and had negative biopsies for celiac disease from the duodenum. A colonoscopy was normal. She had negative small bowel video capsule study in 2018. She needed 2 units of blood in 2018 and subsequently was receiving IV iron infusions. In April 2018, she underwent an upper endoscopy with the finding of what appeared to be either a gastric angiodysplasia or a Dieulafoy lesion. This was clipped with 2 resolution clips with good hemostasis at that time. She also had a colonoscopy in 2018 with removal of some small tubular adenomas. Again, most recently, she had another colonoscopy in 2021, which was unremarkable. From a GI standpoint, she had been doing well. She has been on long-term omeprazole with good control of reflux. She is on chronic oral iron and has always had dark stools. However, over the at least the past 2 to 3 weeks she has noticed darker and occasionally black stools. She did take 2 Excedrin for headache a week or 2 ago, but other than that does not use any aspirin or NSAID products. She does not smoke nor use any alcohol. She is not on any blood thinners. Of note, she did have a significant surgery with laparotomy for a large benign ovarian cyst at [facility] in late spring. She does not recall receiving transfusions nor being told of any significant anemia at that time. As far as she can recall, she has not had any blood work since having had that done. Recently, in association with the darker and lennox stool than usual, she has noted to become more pale and has had weakness with dyspnea on exertion. She had a hemoglobin of 11.2 in August, but on arrival in the ER today, she had a hemoglobin of 6.1 with MCV of 82. Her BUN was slightly elevated at 35 with a creatinine of 1.3, compared to BUN of 9 and creatinine of 1.2 in August 2022. She has been admitted and is receiving transfusions. She has otherwise been hemodynamically stable. She does feel better since admission and starting her transfusions. MEDICATIONS: At home included acetaminophen, iron, fluoxetine, eyedrops, vitamins, omeprazole, MiraLAX p.r.n., and sumatriptan succinate p.r.n. for migraines. Her medications here in the hospital include acetaminophen p.r.n., Colace p.r.n., fluoxetine, Lasix p.r.n., eyedrops, vitamins, Zofran p.r.n., IV Protonix, MiraLAX, and sumatriptan p.r.n. PAST MEDICAL HISTORY: Anemia with multiple GI procedures as described above. 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 She has had a history of gastroesophageal reflux with upper endoscopies as above. Right-sided breast cancer with lumpectomy, chemotherapy and radiation treatment. Migraines. Restless legs syndrome. She denies any history of MD, diabetes, nor stroke. She denies history of lung disease or kidney disease. History of concussion and facial fracture after a fall. Cataract surgery. Knee replacement 2008. Cholecystectomy. Diverticulitis surgery with temporary colostomy in 2013 at [facility]. Right knee replacement 2015. 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 She is a . She does not smoke nor use any significant amounts of alcohol. FAMILY HISTORY: Negative for GI malignancy. REVIEW OF SYSTEMS: CONSTITUTIONAL: She has been feeling weaker and somewhat anorectic. SKIN: No rash. No pruritus. CARDIAC: No chest pain. PULMONARY: No coughing or hemoptysis. GI: As above. URINARY: No dysuria. No hematuria. NEUROLOGIC: She does have intermittent headaches. No seizures. PSYCHIATRIC: Negative. PHYSICAL EXAMINATION: GENERAL: The patient is a pale elderly alert female, in no distress. SKIN: Pale, but warm and dry. HEENT: Anicteric sclerae. Moist mucous membranes. NECK: Supple. CHEST: Clear. CARDIAC: Normal S1 and S2. ABDOMEN: Soft, nondistended, and nontender without mass. EXTREMITIES: Without edema. NEUROLOGICAL: She is alert and oriented. LABORATORY DATA: As above. White blood cell count 6.3, hemoglobin 6.1, platelets 292,000. PT 13.2 with INR 1.1. Normal electrolytes; BUN 35, creatinine 1.1. Lactic acid level initially was 2.2, but repeat was 1.3. LFTs normal except for minimally elevated alkaline phosphatase of 133. Albumin 3.1. Stool was Hemoccult positive. Nasal swab for influenza, RSV, and COVID were negative. Chest x-ray today was negative for any acute disease. IMPRESSION: Given the patient's clinical history, this seems consistent with some type of upper GI bleeding due to her black stool, elevated BUN out of proportion to creatinine, and relatively acute drop in her hemoglobin compared to in August. The differential diagnosis would include that of some type of recurrent gastric AVM, Dieulafoy lesion, peptic ulcer disease, gastritis, and/or esophagitis. I doubt this would reflect any type of upper GI neoplasm. I do not think this represents a lower GI source of bleeding. At this point, I would recommend upper endoscopy on December 14 [address] myself or Dr. Jaime. Full consent was obtained from her for this, including risks of bleeding and perforation. If she shows signs of active bleeding before that we could proceed sooner, but I do not think that is necessary currently. I think it would be best to get her hemoglobin up to a more acceptable level with transfusions. She will continue clear liquids for now and then be n.p.o. for the procedure. She will continue her PPI. I did leave a message for her daughter, Christine, in this regard and I have discussed this in detail with the patient. She is comfortable with the plan. Thanks for the consultation. MD GATO Jones/AB / [id number] MTDD
[2022-12-13 05:12] LABS: MANUAL DIFF FLAG NO
[2022-12-13 05:14] LABS: Basophils Absolute Auto 0.1 X10*3/uL (0.0-0.2); Eosinophils Absolute Auto 0.2 X10*3/uL (0.0-0.4); Eosinophils Percent Auto 2.6 % (0-4); Imm Gran Abs Auto 0.04 X10*3/uL (0.00-0.03); Imm Gran Pct Auto 0.6 % (0.0-0.4); Lymphocytes Absolute Auto 1.8 X10*3/uL (1.2-4.9); Lymphocytes Percent Auto 28.9 % (20-40); Mean Corpuscular HGB Conc 32.1 g/dl (31.0-35.0); Mean Corpuscular Hemoglobin 26.5 pg (27.0-33.0); Mean Corpuscular Volume 82.6 fL (80.0-98.0); Monocytes Absolute Auto 0.6 X10*3/uL (0.1-1.2); Neutrophils Absolute Auto 3.6 x10*3/uL (2.0-8.3); Neutrophils Percent Auto 57.9 % (45-73); Platelet Count 339 X10*3/uL (160-400); Red Blood Count 3.39 X10*6/uL (4.20-5.50); Red Cell Distribution Width 15.9 % (11.0-16.0); White Blood Count 6.2 X10*3/uL (4.8-10.8)
[2022-12-13 05:27] LABS: Anion Gap 14 (12-20); Blood Urea Nitrogen 29 mg/dL (9-16); Calcium 9.4 mg/dL (8.4-10.2); Carbon Dioxide 25 mmol/L (22-29); Chloride 103 mmol/L (96-108); Creatinine Clr Calc Pharmacy 32.6; Estimated Glomerular Filt Rate 43; Glucose Random 106 mg/dL (60-115); Sodium 138 mmol/L (135-145)
[2022-12-13] MEDS: Pantoprazole Sodium 40 MG/10 ML VIAL IVPUSH ×2 (05:59→15:58)
[2022-12-13 06:02] VITALS: BP 155/76; PULSE 92; RESP 18; TEMP 36.8; O2SAT 98
[2022-12-13] MEDS: FLUoxetine HCl 20 MG CAPSULE PO (08:59)
[2022-12-13] MEDS: Multivitamin TABLET 1 TAB PO (09:00)
[2022-12-13 10:54] VITALS: BP 154/69; PULSE 87; RESP 18; TEMP 36.6; O2SAT 100
[2022-12-13 11:03] VITALS: BMI 25.0
--- NOTE | 2022-12-13 11:30 | HO.PM.IMPN ---
Subjective Subjective Date of Service: 12/13/22 Interval History: Patient seen and examined at bedside, reports feeling significantly better. Denies any shortness of breath, no dizziness, no abdominal pain, no diarrhea constipation, no urinary symptoms Has not had any recurrent black stool since admission Review of Systems Review of Systems: Yes all other systems are reviewed and are negative Physical Exam Vital Signs: Vital Signs: Last Vital Signs Temp 97.9 F 12/13/22 10:54 Pulse 87 12/13/22 10:54 Resp 18 12/13/22 10:54 BP 154/69 H 12/13/22 10:54 Pulse Ox 100 12/13/22 10:54 O2 Del Method Room Air 12/13/22 10:54 BMI result Body Mass Index 25.0 Const: Other: Alert oriented x3 Resp: Other: Clear to auscultation Cardio: Other: RRR GI: Other: Abdomen is soft, nontender Objective Data Active Medications Acetaminophen (Acetaminophen 325 Mg Tablet) 650 mg PO Q6H PRN PRN Reason: Pain, Mild (Pain Scale 1-3) Last Admin: 12/13/22 11:26 Dose: 650 mg Documented By: CRISTELA Docusate Sodium (Docusate Sodium 100 Mg Capsule) 100 mg PO DAILY PRN PRN Reason: Constipation Fluoxetine HCl (Fluoxetine Hcl 20 Mg Capsule) 20 mg PO DAILY [facility] Last Admin: 12/13/22 08:59 Dose: 20 mg Documented By: JORDIN Latanoprost (Latanoprost 0.005 % Ophth Daisy 2.5 Ml Drops) 1 drop EYE-BOTH BEDTIME [facility] Last Admin: 12/12/22 20:36 Dose: 1 drop Documented By: EDUARD Multivitamins/Vitamin C (Multivitamin Tablet) 1 tab PO DAILY [facility] Last Admin: 12/13/22 09:00 Dose: 1 tab Documented By: JORDIN Ondansetron HCl (Ondansetron Hcl 4 Mg/2 Ml Vial) 4 mg IVPUSH Q8H PRN PRN Reason: Nausea and Vomiting Pantoprazole Sodium (Pantoprazole Sodium 40 Mg/10 Ml Vial) 40 mg IVPUSH BID@0630,1630 [facility] Last Admin: 12/13/22 05:59 Dose: 40 mg Documented By: DEON Polyethylene Glycol (Polyethylene Glycol 3350 17 Gm Powd.Pack) 17 gm PO DAILY PRN PRN Reason: Constipation Sodium Chloride (0.9 % Sodium Chloride Flush 3 Ml Syringe) 3 ml IVFLUSH QSHIFT [facility] Last Admin: 12/13/22 09:01 Dose: 3 ml Documented By: JORDIN Sumatriptan Succinate (Sumatriptan Succinate 100 Mg Tablet) 100 mg PO DAILY PRN PRN Reason: Migraine Headache Labs 12/13/22 04:59 12/13/22 04:59 Labs: Laboratory Results - last 24 hr 12/12/22 12/12/22 12/12/22 14:06 14:06 14:06 MCV 81.9 MCH 24.5 L MCHC 29.9 L RDW 16.1 H Plt Count 392 MPV 10.1 Immature Gran % (Auto) 0.3 Neut % (Auto) 70.2 Lymph % (Auto) 20.6 [place] % (Auto) 7.2 Eos % (Auto) 1.1 Baso % (Auto) 0.6 Lymph # (Auto) 1.3 [place] # (Auto) 0.5 Eos # (Auto) 0.1 Baso # (Auto) 0.0 Abs Immat Gran (auto) 0.02 Absolute Neuts (auto) 4.4 Absolute Nucleated RBC 0.000 Nucleated RBC % (auto) 0.0 PT 13.2 INR 1.1 Anion Gap 15 Estim Creat Clear Calc 34.3 Estimated GFR 46 Random Glucose 113 Lactic Acid Lactic Acid F/U @ 2Hr Calcium 9.9 D Magnesium 1.9 Total Bilirubin 0.1 Direct Bilirubin < 0.2 AST 18 ALT 8 Alkaline Phosphatase 133 H B-Natriuretic Peptide Total Protein 7.1 Albumin 3.1 L Urine Color Urine Appearance Urine pH Ur Specific [place] Urine Protein Urine Glucose (UA) Urine Ketones Urine Blood Urine Nitrite Ur Leukocyte Esterase Urine RBC Urine WBC Ur Squamous Epith Cells Urine Bacteria Hyaline Casts Stool Occult Blood Salicylates Influenza Type A (PCR) Influenza Type B (PCR) RSV RNA Qual (PCR) SARS-CoV-2 RNA (RT-PCR) Blood Type Antibody Screen Crossmatch Enhanced Crossmatch Blood Bank Comment 12/12/22 12/12/22 12/12/22 14:06 14:06 14:06 MCV MCH MCHC RDW Plt Count MPV Immature Gran % (Auto) Neut % (Auto) Lymph % (Auto) [place] % (Auto) Eos % (Auto) Baso % (Auto) Lymph # (Auto) [place] # (Auto) Eos # (Auto) Baso # (Auto) Abs Immat Gran (auto) Absolute Neuts (auto) Absolute Nucleated RBC Nucleated RBC % (auto) PT INR Anion Gap Estim Creat Clear Calc Estimated GFR Random Glucose Lactic Acid 2.2 H* Lactic Acid F/U @ 2Hr Calcium Magnesium Total Bilirubin Direct Bilirubin AST ALT Alkaline Phosphatase B-Natriuretic Peptide 348 H Total Protein Albumin Urine Color Urine Appearance Urine pH Ur Specific [place] Urine Protein Urine Glucose (UA) Urine Ketones Urine Blood Urine Nitrite Ur Leukocyte Esterase Urine RBC Urine WBC Ur Squamous Epith Cells Urine Bacteria Hyaline Casts Stool Occult Blood Salicylates Influenza Type A (PCR) NEGATIVE Influenza Type B (PCR) NEGATIVE RSV RNA Qual (PCR) NEGATIVE SARS-CoV-2 RNA (RT-PCR) NEGATIVE Blood Type Antibody Screen Crossmatch Enhanced Crossmatch Blood Bank Comment 12/12/22 12/12/22 12/12/22 14:06 14:06 14:44 MCV MCH MCHC RDW Plt Count MPV Immature Gran % (Auto) Neut % (Auto) Lymph % (Auto) [place] % (Auto) Eos % (Auto) Baso % (Auto) Lymph # (Auto) [place] # (Auto) Eos # (Auto) Baso # (Auto) Abs Immat Gran (auto) Absolute Neuts (auto) Absolute Nucleated RBC Nucleated RBC % (auto) PT INR Anion Gap Estim Creat Clear Calc Estimated GFR Random Glucose Lactic Acid Lactic Acid F/U @ 2Hr Calcium Magnesium Total Bilirubin Direct Bilirubin AST ALT Alkaline Phosphatase B-Natriuretic Peptide Total Protein Albumin Urine Color Urine Appearance Urine pH Ur Specific [place] Urine Protein Urine Glucose (UA) Urine Ketones Urine Blood Urine Nitrite Ur Leukocyte Esterase Urine RBC Urine WBC Ur Squamous Epith Cells Urine Bacteria Hyaline Casts Stool Occult Blood POSITIVE Salicylates < 5.0 L Influenza Type A (PCR) Influenza Type B (PCR) RSV RNA Qual (PCR) SARS-CoV-2 RNA (RT-PCR) Blood Type O Positive Antibody Screen NEGATIVE Crossmatch See Detail Enhanced Crossmatch See Detail Blood Bank Comment Technical 12/12/22 12/12/22 12/13/22 16:29 16:42 04:59 MCV 82.6 MCH 26.5 L MCHC 32.1 RDW 15.9 Plt Count 339 MPV 10.0 Immature Gran % (Auto) 0.6 H Neut % (Auto) 57.9 Lymph % (Auto) 28.9 [place] % (Auto) 9.0 Eos % (Auto) 2.6 Baso % (Auto) 1.0 Lymph # (Auto) 1.8 [place] # (Auto) 0.6 Eos # (Auto) 0.2 Baso # (Auto) 0.1 Abs Immat Gran (auto) 0.04 H Absolute Neuts (auto) 3.6 Absolute Nucleated RBC 0.000 Nucleated RBC % (auto) 0.0 PT INR Anion Gap Estim Creat Clear Calc Estimated GFR Random Glucose Lactic Acid Lactic Acid F/U @ 2Hr 1.3 Calcium Magnesium Total Bilirubin Direct Bilirubin AST ALT Alkaline Phosphatase B-Natriuretic Peptide Total Protein Albumin Urine Color Yellow Urine Appearance Clear Urine pH 6.5 Ur Specific [place] 1.015 Urine Protein Negative Urine Glucose (UA) Negative Urine Ketones Negative Urine Blood Negative Urine Nitrite Positive H Ur Leukocyte Esterase Moderate (2+) H Urine RBC 0-2 Urine WBC 11-20 H Ur Squamous Epith Cells 0-2 Urine Bacteria 4+ Hyaline Casts 0-2 Stool Occult Blood Salicylates Influenza Type A (PCR) Influenza Type B (PCR) RSV RNA Qual (PCR) SARS-CoV-2 RNA (RT-PCR) Blood Type Antibody Screen Crossmatch Enhanced Crossmatch Blood Bank Comment 12/13/22 04:59 MCV MCH MCHC RDW Plt Count MPV Immature Gran % (Auto) Neut % (Auto) Lymph % (Auto) [place] % (Auto) Eos % (Auto) Baso % (Auto) Lymph # (Auto) [place] # (Auto) Eos # (Auto) Baso # (Auto) Abs Immat Gran (auto) Absolute Neuts (auto) Absolute Nucleated RBC Nucleated RBC % (auto) PT INR Anion Gap 14 Estim Creat Clear Calc 32.6 Estimated GFR 43 Random Glucose 106 Lactic Acid Lactic Acid F/U @ 2Hr Calcium 9.4 Magnesium Total Bilirubin Direct Bilirubin AST ALT Alkaline Phosphatase B-Natriuretic Peptide Total Protein Albumin Urine Color Urine Appearance Urine pH Ur Specific [place] Urine Protein Urine Glucose (UA) Urine Ketones Urine Blood Urine Nitrite Ur Leukocyte Esterase Urine RBC Urine WBC Ur Squamous Epith Cells Urine Bacteria Hyaline Casts Stool Occult Blood Salicylates Influenza Type A (PCR) Influenza Type B (PCR) RSV RNA Qual (PCR) SARS-CoV-2 RNA (RT-PCR) Blood Type Antibody Screen Crossmatch Enhanced Crossmatch Blood Bank Comment Assessment and Plan (1) UGIB (upper gastrointestinal bleed): Status: Acute (2) Acute anemia: Status: Acute Plan 87-year-old female with history of breast cancer treated with lumpectomy chemotherapy radiation, history iron deficiency anemia, unspecified mood disorder, GERD, migraines, and history of pelvic mass s/p salpingo-oophorectomy admitted for acute blood loss anemia 2/2 UGIB. #Acute symptomatic blood loss anemia 2/2 UGIB - likely upper GI given the elevated BUN relative to creatinine -H/H 6.1/20.4%.? Stool occult blood positive.? Patient with melena - status post 2 units of PRBC -continue IV PPI -IV PPI -clear liquid diet -plan for endoscopy in a.m. - NPO after midnight -follow CBC -monitor on telemetry #Asymptomatic bacteriuria -pt has urge incontinence at baseline, otherwise asymptomatic -afebrile, no luekocytosis -hold on empiric abx, await cultures # chronic iron deficiency anemia -previously required IV iron infusions -continue po iron - status post 2 units of PRBC - plan for endoscopy in a.m. by GI #Unspecified mood disorder -continue fluoxetine #GERD -hold po ppi, on iv DVT prophylaxis- SCPs DNR/DNI Pt requires inpatient stay at least 2 midnights for management of symptomatic blood loss anemia secondary to upper GI bleed requiring blood transfusion, endoscopy, close monitoring of blood counts and cardiac function, an expert consultation Time Spent With Patient Time: Total time managing care of this patient today ____ minutes. Quality Stroke Does the patient have a stroke diagnosis?: No VTE Prior VTE?: No VTE Risk Level:: Medical - moderate - high VTE Device Contraindication: Treatment Not Indicated VTE Drug Contraindication: N/A - Med Ordered
--- NOTE | 2022-12-13 11:34 | PC.NURSE ---
Several attempts made to call and tiger for report, first contact was at 0930. sent pt was sent up around 1030
--- NOTE | 2022-12-13 12:32 | MHC.CM.PN ---
IMM 12/13. Pt admitted with acute blood loss anemia. Pt lives at home with her daughter and son-in-law, uses a walker. Pt states she used [facility] and [facility] in the past but is not currently active with them. D/C plan is to return home with family support vs with new [facility]. Pts daughter or grandson to transport. HCP copy requested. PCP: Jl Nielsen vax: x 1
[2022-12-13] MEDS: Trolamine Salicylate 10 % Cream 85 GM TUBE 1 APPL TOPICAL ×2 (14:20→23:33)
[2022-12-13 15:09] VITALS: BP 123/68; PULSE 93; RESP 20; TEMP 36.6; O2SAT 97
[2022-12-13 19:15] VITALS: BP 131/60; PULSE 75; RESP 20; TEMP 37.2; O2SAT 100
[2022-12-13] MEDS: Latanoprost 0.005 % Ophth Sol 2.5 ML DROPS 1 DROP EYE-BOTH (20:14)
[2022-12-13 22:58] VITALS: BP 109/58; PULSE 111; RESP 20; TEMP 37.4; O2SAT 97
[2022-12-14] VITALS (9 sets, daily range): BP systolic 117–160; BP diastolic 55–99; PULSE 72–131; RESP 15–20; TEMP 36.3–37.2; O2SAT 94–98
--- NOTE | 2022-12-14 | ECG_ITS ---
Test Reason : tachy Blood Pressure : / mmHG Vent. Rate : 110 BPM Atrial Rate : 110 BPM P-R Int : 130 ms QRS Dur : 084 ms QT Int : 356 ms P-R-T Axes : -27 004 012 degrees QTc Int : 481 ms Sinus tachycardia with Fusion complexes Otherwise normal ECG When compared with ECG of 12-DEC-2022 13:35, Fusion complexes are now Present Referred By: Fred Salazar Electronically Signed By:JESSE PRATT
[2022-12-14] MEDS: Pantoprazole Sodium 40 MG/10 ML VIAL IVPUSH ×2 (06:04→15:57)
[2022-12-14 07:06] LABS: MANUAL DIFF FLAG NO
[2022-12-14 07:26] LABS: Anion Gap 10 (12-20); Blood Urea Nitrogen 20 mg/dL (9-16); Calcium 9.6 mg/dL (8.4-10.2); Carbon Dioxide 27 mmol/L (22-29); Chloride 104 mmol/L (96-108); Creatinine Clr Calc Pharmacy 31.3; Estimated Glomerular Filt Rate 45; Glucose Fasting 112 mg/dL (60-99); Potassium 4.4 mmol/L (3.3-5.1); Sodium 137 mmol/L (135-145)
[2022-12-14 07:27] LABS: Basophils Absolute Auto 0.1 X10*3/uL (0.0-0.2); Basophils Percent Auto 1.3 % (0-2); Eosinophils Absolute Auto 0.2 X10*3/uL (0.0-0.4); Eosinophils Percent Auto 3.6 % (0-4); Hematocrit 29.1 % (37.0-47.0); Hemoglobin 9.1 g/dl (12.0-16.0); Imm Gran Abs Auto 0.03 X10*3/uL (0.00-0.03); Imm Gran Pct Auto 0.6 % (0.0-0.4); Lymphocytes Absolute Auto 1.3 X10*3/uL (1.2-4.9); Lymphocytes Percent Auto 27.1 % (20-40); Mean Corpuscular HGB Conc 31.3 g/dl (31.0-35.0); Mean Corpuscular Hemoglobin 26.5 pg (27.0-33.0); Mean Corpuscular Volume 84.6 fL (80.0-98.0); Mean Platelet Volume 10.2 fL (9.4-12.3); Monocytes Absolute Auto 0.5 X10*3/uL (0.1-1.2); Neutrophils Absolute Auto 2.7 x10*3/uL (2.0-8.3); Neutrophils Percent Auto 56.4 % (45-73); Platelet Count 366 X10*3/uL (160-400); Red Blood Count 3.44 X10*6/uL (4.20-5.50); Red Cell Distribution Width 16.7 % (11.0-16.0); White Blood Count 4.7 X10*3/uL (4.8-10.8)
[2022-12-14] MEDS: Multivitamin TABLET 1 TAB PO (09:53)
[2022-12-14] MEDS: 0.9 % Sodium Chloride Flush 3 ML SYRINGE IVFLUSH ×3 (09:53→23:00)
[2022-12-14] MEDS: FLUoxetine HCl 20 MG CAPSULE PO (09:53)
--- NOTE | 2022-12-14 13:20 | MHC.CM.PN ---
EMR REVIEWED AND PER MD ROUNDS, PT WILL BE SCHEDULED FOR AN EGD TODAY. CM WILL CONTINUE TO FOLLOW FOR ANY CHANGE IN DC NEEDS/PLAN
--- NOTE | 2022-12-14 15:52 | HO.PM.IMPN ---
Subjective Subjective Date of Service: 12/14/22 Interval History: Doing well overnight. No bleeding Review of Systems Denies chest pain Denies shortness of breath Denies nausea vomiting diarrhea Denies fever chills Physical Exam Vital Signs: Vital Signs: Last Vital Signs Temp 98.4 F 12/14/22 15:00 Pulse 131 H 12/14/22 15:00 Resp 20 12/14/22 15:00 BP 124/73 12/14/22 15:00 Pulse Ox 97 12/14/22 15:00 O2 Del Method Room Air 12/14/22 15:00 BMI result Body Mass Index 25.0 Const: Other: Awake alert oriented x3 no acute distress Resp: Other: Clear to auscultation bilaterally no rales rhonchi or wheezes Cardio: Other: No S4; positive S1-S2; no S3 murmurs rubs or gallops GI: Other: Soft nontender nondistended with normoactive bowel sounds Extrem: Other: No edema bilateral Objective Data Active Medications Acetaminophen (Acetaminophen 325 Mg Tablet) 650 mg PO Q6H PRN PRN Reason: Pain, Mild (Pain Scale 1-3) Last Admin: 12/13/22 21:41 Dose: 650 mg Documented By: INDIA Docusate Sodium (Docusate Sodium 100 Mg Capsule) 100 mg PO DAILY PRN PRN Reason: Constipation Fluoxetine HCl (Fluoxetine Hcl 20 Mg Capsule) 20 mg PO DAILY [facility] Last Admin: 12/14/22 09:53 Dose: 20 mg Documented By: MINERVA Latanoprost (Latanoprost 0.005 % Ophth Daisy 2.5 Ml Drops) 1 drop EYE-BOTH BEDTIME [facility] Last Admin: 12/13/22 20:14 Dose: 1 drop Documented By: INDIA Multivitamins/Vitamin C (Multivitamin Tablet) 1 tab PO DAILY [facility] Last Admin: 12/14/22 09:53 Dose: 1 tab Documented By: MINERVA Ondansetron HCl (Ondansetron Hcl 4 Mg/2 Ml Vial) 4 mg IVPUSH Q8H PRN PRN Reason: Nausea and Vomiting Pantoprazole Sodium (Pantoprazole Sodium 40 Mg/10 Ml Vial) 40 mg IVPUSH BID@0630,1630 [facility] Last Admin: 12/14/22 06:04 Dose: 40 mg Documented By: INDIA Polyethylene Glycol (Polyethylene Glycol 3350 17 Gm Powd.Pack) 17 gm PO DAILY PRN PRN Reason: Constipation Sodium Chloride (0.9 % Sodium Chloride Flush 3 Ml Syringe) 3 ml IVFLUSH QSHIFT [facility] Last Admin: 12/14/22 09:53 Dose: 3 ml Documented By: MINERVA Sumatriptan Succinate (Sumatriptan Succinate 100 Mg Tablet) 100 mg PO DAILY PRN PRN Reason: Migraine Headache Trolamine Salicylate (Trolamine Salicylate 10 % Cream 85 Gm Tube) 1 appl TOPICAL BID PRN; Protocol PRN Reason: Knee pain Last Admin: 12/13/22 23:33 Dose: 1 appl Documented By: INDIA Labs 12/14/22 06:53 12/14/22 06:53 Labs: Laboratory Results - last 24 hr 12/14/22 12/14/22 06:53 06:53 MCV 84.6 MCH 26.5 L MCHC 31.3 RDW 16.7 H Plt Count 366 MPV 10.2 Immature Gran % (Auto) 0.6 H Neut % (Auto) 56.4 Lymph % (Auto) 27.1 [place] % (Auto) 11.0 Eos % (Auto) 3.6 Baso % (Auto) 1.3 Lymph # (Auto) 1.3 [place] # (Auto) 0.5 Eos # (Auto) 0.2 Baso # (Auto) 0.1 Abs Immat Gran (auto) 0.03 Absolute Neuts (auto) 2.7 Absolute Nucleated RBC 0.000 Nucleated RBC % (auto) 0.0 Anion Gap 10 L Estim Creat Clear Calc 31.3 Estimated GFR 45 Fasting Glucose 112 H Calcium 9.6 Microbiology Microbiology Results: Microbiology 12/12/22 13:44 Blood Culture - Preliminary Blood - Venous No growth after 48 hours. 12/12/22 Unknown Urine Culture - Final Urine clean catch - Urine mahan top Klebsiella pneumoniae 12/12/22 14:06 Blood Culture - Preliminary Blood - Venous No growth after 24 hours. Assessment and Plan (1) Acute anemia: Status: Acute (2) Iron deficiency anemia: Status: Acute Plan 87-year-old female with history of breast cancer treated with lumpectomy chemotherapy radiation, history iron deficiency anemia, unspecified mood disorder, GERD, migraines, and history of pelvic mass s/p salpingo-oophorectomy admitted for acute blood loss anemia 2/2 UGIB. 1.Acute symptomatic blood loss anemia -responded well to transfusion -NPO for EGD this afternoon -continue IV PPI pending results 2.Chronic iron deficiency anemia -previously required IV iron infusions -continue po iron -follow-up clinically with serial CBCs Boots DNR/DNI Requires ongoing hospitalization for evaluation of symptomatic anemia Time Spent With Patient Time: Total time managing care of this patient today ____ minutes. Quality Stroke Does the patient have a stroke diagnosis?: No VTE Prior VTE?: No VTE Risk Level:: Medical - moderate - high VTE Device Contraindication: Treatment Not Indicated VTE Drug Contraindication: N/A - Med Ordered
--- NOTE | 2022-12-14 19:25 | HO.ANESPROP2 ---
HPI - Anesthesia Eval Consult details Narrative: GI bleed PMFSH Active Problems Active Problems: All Active Problems (Updated 12/12/22 @ 16:23 by BELEN Milner) UGIB (upper gastrointestinal bleed) (Acute) Acute anemia (Acute) Pelvic mass (Acute) Iron deficiency anemia (Acute) Breast cancer (Acute) Breast cancer in female (Acute) Past Medical History Medical History Cataracts, bilateral Cholecystectomy planned Diverticulitis FH: total knee replacement Hx of breast cancer Iron deficiency anemia Migraine Family History Family History Sister Breast cancer Diabetes Mother Diabetes Family history of problems with anesthesia: No Surgical History Surgical History Cataract H/O colonoscopy H/O total knee replacement History of colostomy reversal History of Problems with Anesthesia: No Social History Social History Household Members: Family and Children Household Members Other:: 3 Housing: House Are you a primary progressive care nurse to a significant other at home: No Do you presently have visiting nurse or other home services: No Alcohol intake: never Patient Tobacco Use Status: Former Tobacco user service: No Current occupational status: retired Meds Allergies Allergy/AdvReac Type Severity Reaction Status Date / Time Penicillins Allergy Mild RASH Verified 04/09/22 13:13 [id number]-UiA Reductase Allergy Mild RASH Verified 04/09/22 13:13 Inhibitor [Statins: Hmg-Coa Reductase Inhibito] levofloxacin [From LEVAQUIN] Allergy Unknown RED RASH Verified 04/09/22 13:13 gabapentin Allergy Unknown Verified 04/09/22 13:13 pregabalin [From Lyrica] Allergy Unknown Verified 04/09/22 13:13 Active Medications: Current Medications Acetaminophen (Acetaminophen 325 Mg Tablet) 650 mg PO Q6H PRN PRN Reason: Pain, Mild (Pain Scale 1-3) Last Admin: 12/13/22 21:41 Dose: 650 mg Docusate Sodium (Docusate Sodium 100 Mg Capsule) 100 mg PO DAILY PRN PRN Reason: Constipation Fluoxetine HCl (Fluoxetine Hcl 20 Mg Capsule) 20 mg PO DAILY [facility] Last Admin: 12/14/22 09:53 Dose: 20 mg Latanoprost (Latanoprost 0.005 % Ophth Daisy 2.5 Ml Drops) 1 drop EYE-BOTH BEDTIME [facility] Last Admin: 12/13/22 20:14 Dose: 1 drop Multivitamins/Vitamin C (Multivitamin Tablet) 1 tab PO DAILY [facility] Last Admin: 12/14/22 09:53 Dose: 1 tab Ondansetron HCl (Ondansetron Hcl 4 Mg/2 Ml Vial) 4 mg IVPUSH Q8H PRN PRN Reason: Nausea and Vomiting Pantoprazole Sodium (Pantoprazole Sodium 40 Mg/10 Ml Vial) 40 mg IVPUSH BID@0630,1630 [facility] Last Admin: 12/14/22 15:57 Dose: 40 mg Polyethylene Glycol (Polyethylene Glycol 3350 17 Gm Powd.Pack) 17 gm PO DAILY PRN PRN Reason: Constipation Sodium Chloride (0.9 % Sodium Chloride Flush 3 Ml Syringe) 3 ml IVFLUSH QSHIFT [facility] Last Admin: 12/14/22 15:57 Dose: 3 ml Sumatriptan Succinate (Sumatriptan Succinate 100 Mg Tablet) 100 mg PO DAILY PRN PRN Reason: Migraine Headache Trolamine Salicylate (Trolamine Salicylate 10 % Cream 85 Gm Tube) 1 appl TOPICAL BID PRN; Protocol PRN Reason: Knee pain Last Admin: 12/13/22 23:33 Dose: 1 appl Home Medications Medication Instructions Recorded Confirmed Last Taken Type fluoxetine 20 mg capsule 1 cap PO DAILY 04/04/20 12/12/22 Unknown History latanoprost 0.005 % eye drops 1 drp ophthalmic (eye) BEDTIME 04/04/20 12/12/22 Unknown History sumatriptan succinate 100 mg tablet 1 tab PO DIRECTED PRN Migraine 04/04/20 12/12/22 Unknown History Headache ferrous sulfate 325 mg (65 mg 325 mg PO DAILY 07/02/20 12/12/22 06/24/21 History iron) tablet (iron) omeprazole 20 mg capsule,delayed 20 mg PO DAILY 04/08/21 12/12/22 Unknown History release acetaminophen 500 mg tablet 1,000 mg PO Q6H PRN pain or fever 12/12/22 12/12/22 Unknown History (Tylenol Extra Strength) multivitamin 1 tab PO DAILY 12/12/22 12/12/22 Unknown History polyethylene glycol 3350 17 17 g PO DAILY PRN Constipation 12/12/22 12/12/22 Unknown History gram/dose oral powder (Miralax) Exam Exam Date and Time: December 14, 20221924 Height,Weight and Vital Signs: Height 5 ft 5 in Weight 68.2 kg Last Vital Signs Temp 98.9 F 12/14/22 18:41 Pulse 104 H 12/14/22 18:41 Resp 20 12/14/22 18:41 BP 160/66 H 12/14/22 18:41 Pulse Ox 97 12/14/22 18:41 O2 Del Method Room Air 12/14/22 18:41 Pertinent Lab Results Pertinent Lab Results: Laboratory Tests 12/12/22 12/12/22 12/12/22 14:06 14:06 14:06 WBC 6.3 RBC 2.49 L D Hgb 6.1 L* D Hct 20.4 L* D MCV 81.9 MCH 24.5 L MCHC 29.9 L RDW 16.1 H Plt Count 392 MPV 10.1 Immature Gran % (Auto) 0.3 Neut % (Auto) 70.2 Lymph % (Auto) 20.6 [place] % (Auto) 7.2 Eos % (Auto) 1.1 Baso % (Auto) 0.6 Lymph # (Auto) 1.3 [place] # (Auto) 0.5 Eos # (Auto) 0.1 Baso # (Auto) 0.0 Abs Immat Gran (auto) 0.02 Absolute Neuts (auto) 4.4 Absolute Nucleated RBC 0.000 Nucleated RBC % (auto) 0.0 Smear Path Review SEE NOTE PT 13.2 INR 1.1 Sodium 138 Potassium 4.5 D Chloride 107 Carbon Dioxide 21 L Anion Gap 15 BUN 35 H Creatinine 1.13 Estim Creat Clear Calc 34.3 Estimated GFR 46 Random Glucose 113 Fasting Glucose Lactic Acid Lactic Acid F/U @ 2Hr Calcium 9.9 D Magnesium 1.9 Total Bilirubin 0.1 Direct Bilirubin < 0.2 AST 18 ALT 8 Alkaline Phosphatase 133 H Troponin I High Sens B-Natriuretic Peptide Total Protein 7.1 Albumin 3.1 L Urine Color Urine Appearance Urine pH Ur Specific [place] Urine Protein Urine Glucose (UA) Urine Ketones Urine Blood Urine Nitrite Ur Leukocyte Esterase Urine RBC Urine WBC Ur Squamous Epith Cells Urine Bacteria Hyaline Casts Stool Occult Blood Salicylates Influenza Type A (PCR) Influenza Type B (PCR) RSV RNA Qual (PCR) SARS-CoV-2 RNA (RT-PCR) Blood Type Antibody Screen Crossmatch Enhanced Crossmatch Blood Bank Comment 12/12/22 12/12/22 12/12/22 14:06 14:06 14:06 WBC RBC Hgb Hct MCV MCH MCHC RDW Plt Count MPV Immature Gran % (Auto) Neut % (Auto) Lymph % (Auto) [place] % (Auto) Eos % (Auto) Baso % (Auto) Lymph # (Auto) [place] # (Auto) Eos # (Auto) Baso # (Auto) Abs Immat Gran (auto) Absolute Neuts (auto) Absolute Nucleated RBC Nucleated RBC % (auto) Smear Path Review PT INR Sodium Potassium Chloride Carbon Dioxide Anion Gap BUN Creatinine Estim Creat Clear Calc Estimated GFR Random Glucose Fasting Glucose Lactic Acid 2.2 H* Lactic Acid F/U @ 2Hr Calcium Magnesium Total Bilirubin Direct Bilirubin AST ALT Alkaline Phosphatase Troponin I High Sens 3.5 D B-Natriuretic Peptide 348 H Total Protein Albumin Urine Color Urine Appearance Urine pH Ur Specific [place] Urine Protein Urine Glucose (UA) Urine Ketones Urine Blood Urine Nitrite Ur Leukocyte Esterase Urine RBC Urine WBC Ur Squamous Epith Cells Urine Bacteria Hyaline Casts Stool Occult Blood Salicylates Influenza Type A (PCR) Influenza Type B (PCR) RSV RNA Qual (PCR) SARS-CoV-2 RNA (RT-PCR) Blood Type Antibody Screen Crossmatch Enhanced Crossmatch Blood Bank Comment 12/12/22 12/12/22 12/12/22 14:06 14:06 14:06 WBC RBC Hgb Hct MCV MCH MCHC RDW Plt Count MPV Immature Gran % (Auto) Neut % (Auto) Lymph % (Auto) [place] % (Auto) Eos % (Auto) Baso % (Auto) Lymph # (Auto) [place] # (Auto) Eos # (Auto) Baso # (Auto) Abs Immat Gran (auto) Absolute Neuts (auto) Absolute Nucleated RBC Nucleated RBC % (auto) Smear Path Review PT INR Sodium Potassium Chloride Carbon Dioxide Anion Gap BUN Creatinine Estim Creat Clear Calc Estimated GFR Random Glucose Fasting Glucose Lactic Acid Lactic Acid F/U @ 2Hr Calcium Magnesium Total Bilirubin Direct Bilirubin AST ALT Alkaline Phosphatase Troponin I High Sens B-Natriuretic Peptide Total Protein Albumin Urine Color Urine Appearance Urine pH Ur Specific [place] Urine Protein Urine Glucose (UA) Urine Ketones Urine Blood Urine Nitrite Ur Leukocyte Esterase Urine RBC Urine WBC Ur Squamous Epith Cells Urine Bacteria Hyaline Casts Stool Occult Blood Salicylates < 5.0 L Influenza Type A (PCR) NEGATIVE Influenza Type B (PCR) NEGATIVE RSV RNA Qual (PCR) NEGATIVE SARS-CoV-2 RNA (RT-PCR) NEGATIVE Blood Type O Positive Antibody Screen NEGATIVE Crossmatch See Detail Enhanced Crossmatch See Detail Blood Bank Comment Technical 12/12/22 12/12/22 12/12/22 14:44 16:29 16:42 WBC RBC Hgb Hct MCV MCH MCHC RDW Plt Count MPV Immature Gran % (Auto) Neut % (Auto) Lymph % (Auto) [place] % (Auto) Eos % (Auto) Baso % (Auto) Lymph # (Auto) [place] # (Auto) Eos # (Auto) Baso # (Auto) Abs Immat Gran (auto) Absolute Neuts (auto) Absolute Nucleated RBC Nucleated RBC % (auto) Smear Path Review PT INR Sodium Potassium Chloride Carbon Dioxide Anion Gap BUN Creatinine Estim Creat Clear Calc Estimated GFR Random Glucose Fasting Glucose Lactic Acid Lactic Acid F/U @ 2Hr 1.3 Calcium Magnesium Total Bilirubin Direct Bilirubin AST ALT Alkaline Phosphatase Troponin I High Sens B-Natriuretic Peptide Total Protein Albumin Urine Color Yellow Urine Appearance Clear Urine pH 6.5 Ur Specific [place] 1.015 Urine Protein Negative Urine Glucose (UA) Negative Urine Ketones Negative Urine Blood Negative Urine Nitrite Positive H Ur Leukocyte Esterase Moderate (2+) H Urine RBC 0-2 Urine WBC 11-20 H Ur Squamous Epith Cells 0-2 Urine Bacteria 4+ Hyaline Casts 0-2 Stool Occult Blood POSITIVE Salicylates Influenza Type A (PCR) Influenza Type B (PCR) RSV RNA Qual (PCR) SARS-CoV-2 RNA (RT-PCR) Blood Type Antibody Screen Crossmatch Enhanced Crossmatch Blood Bank Comment 12/13/22 12/13/22 12/14/22 04:59 04:59 06:53 WBC 6.2 4.7 L RBC 3.39 L D 3.44 L Hgb 9.0 L D 9.1 L Hct 28.0 L D 29.1 L MCV 82.6 84.6 MCH 26.5 L 26.5 L MCHC 32.1 31.3 RDW 15.9 16.7 H Plt Count 339 366 MPV 10.0 10.2 Immature Gran % (Auto) 0.6 H 0.6 H Neut % (Auto) 57.9 56.4 Lymph % (Auto) 28.9 27.1 [place] % (Auto) 9.0 11.0 Eos % (Auto) 2.6 3.6 Baso % (Auto) 1.0 1.3 Lymph # (Auto) 1.8 1.3 [place] # (Auto) 0.6 0.5 Eos # (Auto) 0.2 0.2 Baso # (Auto) 0.1 0.1 Abs Immat Gran (auto) 0.04 H 0.03 Absolute Neuts (auto) 3.6 2.7 Absolute Nucleated RBC 0.000 0.000 Nucleated RBC % (auto) 0.0 0.0 Smear Path Review PT INR Sodium 138 Potassium 4.0 Chloride 103 Carbon Dioxide 25 Anion Gap 14 BUN 29 H Creatinine 1.19 Estim Creat Clear Calc 32.6 Estimated GFR 43 Random Glucose 106 Fasting Glucose Lactic Acid Lactic Acid F/U @ 2Hr Calcium 9.4 Magnesium Total Bilirubin Direct Bilirubin AST ALT Alkaline Phosphatase Troponin I High Sens B-Natriuretic Peptide Total Protein Albumin Urine Color Urine Appearance Urine pH Ur Specific [place] Urine Protein Urine Glucose (UA) Urine Ketones Urine Blood Urine Nitrite Ur Leukocyte Esterase Urine RBC Urine WBC Ur Squamous Epith Cells Urine Bacteria Hyaline Casts Stool Occult Blood Salicylates Influenza Type A (PCR) Influenza Type B (PCR) RSV RNA Qual (PCR) SARS-CoV-2 RNA (RT-PCR) Blood Type Antibody Screen Crossmatch Enhanced Crossmatch Blood Bank Comment 12/14/22 06:53 WBC RBC Hgb Hct MCV MCH MCHC RDW Plt Count MPV Immature Gran % (Auto) Neut % (Auto) Lymph % (Auto) [place] % (Auto) Eos % (Auto) Baso % (Auto) Lymph # (Auto) [place] # (Auto) Eos # (Auto) Baso # (Auto) Abs Immat Gran (auto) Absolute Neuts (auto) Absolute Nucleated RBC Nucleated RBC % (auto) Smear Path Review PT INR Sodium 137 Potassium 4.4 Chloride 104 Carbon Dioxide 27 Anion Gap 10 L BUN 20 H Creatinine 1.14 Estim Creat Clear Calc 31.3 Estimated GFR 45 Random Glucose Fasting Glucose 112 H Lactic Acid Lactic Acid F/U @ 2Hr Calcium 9.6 Magnesium Total Bilirubin Direct Bilirubin AST ALT Alkaline Phosphatase Troponin I High Sens B-Natriuretic Peptide Total Protein Albumin Urine Color Urine Appearance Urine pH Ur Specific [place] Urine Protein Urine Glucose (UA) Urine Ketones Urine Blood Urine Nitrite Ur Leukocyte Esterase Urine RBC Urine WBC Ur Squamous Epith Cells Urine Bacteria Hyaline Casts Stool Occult Blood Salicylates Influenza Type A (PCR) Influenza Type B (PCR) RSV RNA Qual (PCR) SARS-CoV-2 RNA (RT-PCR) Blood Type Antibody Screen Crossmatch Enhanced Crossmatch Blood Bank Comment Airway Mallampati Class: II TM Dist: >3cm Neck ROM: Full Denture: Upper Loose/Missing/Broken Teeth: No Heart: IRRR Lungs: CTA Assessment and Plan Final Anesthetic Review Family History of Problems with Anesthesia: No History of Problems with Anesthesia: No NPO: Yes ASA Class: II Final Preanesthetic Review: No Changes in Pt Med Stat, Meds/Allgs Chart Reviewed, Consent Obtained/Reviewed, Anes Risks/Benef Reviewed and DNR Form (If Appl.) Patient Risk: Intermediate Procedure Risk: Low Anesthetic Plan Anesthetic Plan: MAC: Disposition: Standard PACU
--- NOTE | 2022-12-14 19:31 | PC.NURSE ---
Patient arrived to preop area noted alternating nsr 80-90's with runs tacchyarrhythmia. call to [facility] monitor staff who identified patient had been having this happen on [facility] prior to transfer. Hospitalist Dr. Salazar contacted regarding patient cardiac rhythm in Preop area.
--- NOTE | 2022-12-14 19:39 | ECG_ITS ---
Test Reason : CP Blood Pressure : / mmHG Vent. Rate : 111 BPM Atrial Rate : 111 BPM P-R Int : 150 ms QRS Dur : 076 ms QT Int : 358 ms P-R-T Axes : 000 006 016 degrees QTc Int : 486 ms Sinus tachycardia with Premature atrial complexes with Aberrant conduction Otherwise normal ECG When compared with ECG of 14-DEC-2022 19:38, Fusion complexes are no longer Present Aberrant conduction is now Present Referred By: William Villarreal Electronically Signed By:JESSE PRATT
--- NOTE | 2022-12-14 20:43 | P.BOP_ITS ---
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
--- NOTE | 2022-12-14 20:45 | PM.EVENT ---
Event Note Date of Service: 12/14/22 Event Note: GI-EGD-Full note dictated Findings: 1. 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 Treated with Resolution clips x 3, injection with 1:10,000 Epi, and application of Hemospray. Good hemostasis was obtained. 2. Hiatal hernia Plan: Continue IV PPI, add sucralfate suspension, NPO except ice/meds/sips for now, F/U Hgb. If she rebleeds I would recommend transfer to a tertiary center for evaluation for IR Angiography and embolization of the gastric lesion, unless that service can be provided here by the IR physicians on staff. D/W daughter, Christine in detail. Thanks Time Spent With Patient Time: Total time managing care of this patient today ____ minutes.
[2022-12-14] MEDS: Haloperidol Lactate 5 MG/ML VIAL IVPUSH (20:47)
[2022-12-14 22:21] LABS: MANUAL DIFF FLAG NO
[2022-12-14 22:24] LABS: Basophils Percent Auto 0.5 % (0-2); Eosinophils Percent Auto 0.7 % (0-4); Hematocrit 28.4 % (37.0-47.0); Hemoglobin 8.9 g/dl (12.0-16.0); Imm Gran Abs Auto 0.03 X10*3/uL (0.00-0.03); Imm Gran Pct Auto 0.5 % (0.0-0.4); Lymphocytes Absolute Auto 0.7 X10*3/uL (1.2-4.9); Lymphocytes Percent Auto 11.2 % (20-40); Mean Corpuscular HGB Conc 31.3 g/dl (31.0-35.0); Mean Corpuscular Hemoglobin 26.4 pg (27.0-33.0); Mean Corpuscular Volume 84.3 fL (80.0-98.0); Mean Platelet Volume 9.8 fL (9.4-12.3); Monocytes Absolute Auto 0.5 X10*3/uL (0.1-1.2); Monocytes Percent Auto 8.7 % (2-11); Neutrophils Absolute Auto 4.8 x10*3/uL (2.0-8.3); Neutrophils Percent Auto 78.4 % (45-73); Platelet Count 366 X10*3/uL (160-400); Red Blood Count 3.37 X10*6/uL (4.20-5.50); Red Cell Distribution Width 16.6 % (11.0-16.0); White Blood Count 6.1 X10*3/uL (4.8-10.8)
[2022-12-14 22:46] LABS: Anion Gap 15 (12-20); Blood Urea Nitrogen 21 mg/dL (9-16); Calcium 9.4 mg/dL (8.4-10.2); Carbon Dioxide 24 mmol/L (22-29); Chloride 104 mmol/L (96-108); Estimated Glomerular Filt Rate 48; Glucose Random 105 mg/dL (60-115); Potassium 4.1 mmol/L (3.3-5.1); Sodium 139 mmol/L (135-145)
[2022-12-14] MEDS: Sucralfate Oral Suspension 1 GM/10 ML ORAL.SUSP PO (22:59)
[2022-12-14] MEDS: Latanoprost 0.005 % Ophth Sol 2.5 ML DROPS 1 DROP EYE-BOTH (23:01)
[2022-12-14] MEDS: Pantoprazole Sodium 40 MG/10 ML VIAL 80 MG IVPUSH (23:02)
[2022-12-14] MEDS: Pantoprazole Sodium 80 MG in 0.9 % Sodium Chloride 80 ML 10 MG IV (23:07)
[2022-12-15 03:19] VITALS: BP 133/64; PULSE 77; RESP 18; TEMP 36.7; O2SAT 93
--- NOTE | 2022-12-15 03:33 | OP_ITS ---
DATE OF SERVICE: 12/14/2022 SURGEON: Dawood Allred MD INDICATIONS: The patient presents for evaluation of upper GI bleeding. Full consent has been obtained from her for this, including risks of bleeding and perforation. PREOPERATIVE DIAGNOSIS: Upper gastrointestinal bleeding. POSTOPERATIVE DIAGNOSIS: PROCEDURE PERFORMED: Esophagogastroduodenoscopy with treatment of bleeding with 3 resolution clips, sclerotherapy with epinephrine in a dilution of 1:10,000, and application of Hemospray. ESTIMATED BLOOD LOSS: COMPLICATIONS: ANESTHESIA: Monitored anesthesia care. She received a total of 5 injections with 2 cc of epinephrine in a dilution of 1:10,000. ASSISTANTS: SPECIMENS: POSTOPERATIVE DIAGNOSES: Upper gastrointestinal bleeding, proximal gastric bleeding angiodysplasia and/or Dieulafoy lesion with active bleeding, hiatal hernia, gastric polyps. DESCRIPTION OF PROCEDURE: The patient was placed in the left lateral decubitus position. The Olympus video gastroscope was passed in the posterior oropharynx and upper esophagus under direct vision. The scope was passed slowly to the distal esophagus. The gastroesophageal junction appeared normal at 36 cm. There was no sign of any esophagitis, Larry esophagus, nor varices. The scope entered the stomach. There was a small to moderate-sized hiatal hernia. The scope was advanced to the pylorus, and the duodenum was cannulated to the descending portion. The duodenum including the bulb appeared normal without mass or ulceration. The scope was withdrawn back to the stomach. The gastric antrum and body appeared normal with good peristalsis. The scope was retroflexed visualizing the proximal stomach carefully, which revealed a several millimeter bright red lesion in the proximal stomach. This was seen both in the forward viewing and retroflexed positions. This was in the proximal stomach at approximately 42 cm from the incisors on the anterior wall between the greater curvature and lesser curvature. This was very friable and, upon simply irrigating it, it began oozing bright red blood quite briskly. At that point, I deployed 3 resolution clips directly onto it with good hemostasis at that point. I then placed 5 injections of the epinephrine around the clips with good blanching of mucosa and continued good hemostasis. I then applied Hemospray to the area with good application noted and continued good hemostasis. At that point, the procedure was terminated. She tolerated the procedure well and was returned to the recovery area in stable condition. IMPRESSION: Proximal gastric lesion consistent with either a bleeding Dieulafoy lesion or angiodysplasia. Status post hemostasis with resolution clips x 3, epinephrine injections x 5, and application of Hemospray. PLAN: The patient will be observed. She will continue on her IV PPI infusion, and I shall add sucralfate suspension. She will be kept n.p.o. for tonight at least. She will have followup hemoglobins. If she has recurrent active bleeding, then I think the next step would be potential embolization with Interventional Radiology via angiogram. This has all been discussed with the patient and the patient's daughter, Christine, in detail. They are both comfortable with this plan. MD GATO Jones/AB / [id number] MTDD
[2022-12-15 06:28] LABS: MANUAL DIFF FLAG NO
[2022-12-15 06:32] LABS: Basophils Percent Auto 0.6 % (0-2); Eosinophils Absolute Auto 0.1 X10*3/uL (0.0-0.4); Eosinophils Percent Auto 1.2 % (0-4); Hematocrit 27.9 % (37.0-47.0); Hemoglobin 8.4 g/dl (12.0-16.0); Imm Gran Abs Auto 0.01 X10*3/uL (0.00-0.03); Imm Gran Pct Auto 0.2 % (0.0-0.4); Lymphocytes Absolute Auto 1.5 X10*3/uL (1.2-4.9); Lymphocytes Percent Auto 30.9 % (20-40); Mean Corpuscular HGB Conc 30.1 g/dl (31.0-35.0); Mean Corpuscular Hemoglobin 25.8 pg (27.0-33.0); Mean Corpuscular Volume 85.6 fL (80.0-98.0); Mean Platelet Volume 10.1 fL (9.4-12.3); Monocytes Absolute Auto 0.4 X10*3/uL (0.1-1.2); Monocytes Percent Auto 8.9 % (2-11); Neutrophils Absolute Auto 2.8 x10*3/uL (2.0-8.3); Neutrophils Percent Auto 58.2 % (45-73); Platelet Count 370 X10*3/uL (160-400); Red Blood Count 3.26 X10*6/uL (4.20-5.50); Red Cell Distribution Width 16.8 % (11.0-16.0); White Blood Count 4.9 X10*3/uL (4.8-10.8)
[2022-12-15] MEDS: Pantoprazole Sodium 80 MG in 0.9 % Sodium Chloride 80 ML 10 MG IV ×2 (06:38→16:46)
[2022-12-15 06:44] LABS: Anion Gap 14 (12-20); Blood Urea Nitrogen 21 mg/dL (9-16); Calcium 9.5 mg/dL (8.4-10.2); Carbon Dioxide 25 mmol/L (22-29); Chloride 105 mmol/L (96-108); Creatinine Clr Calc Pharmacy 31.8; Estimated Glomerular Filt Rate 46; Glucose Fasting 95 mg/dL (60-99); Potassium 4.5 mmol/L (3.3-5.1); Sodium 139 mmol/L (135-145)
[2022-12-15] MEDS: Multivitamin TABLET 1 TAB PO (07:27)
[2022-12-15] MEDS: FLUoxetine HCl 20 MG CAPSULE PO (07:27)
[2022-12-15] MEDS: 0.9 % Sodium Chloride Flush 3 ML SYRINGE IVFLUSH ×3 (07:27→22:26)
[2022-12-15] MEDS: Sucralfate Oral Suspension 1 GM/10 ML ORAL.SUSP PO ×4 (07:27→22:26)
[2022-12-15 07:35] VITALS: BP 151/68; PULSE 77; RESP 20; TEMP 36.7; O2SAT 98
[2022-12-15 11:30] VITALS: BP 140/72; PULSE 73; RESP 20; TEMP 36.5; O2SAT 98
[2022-12-15] MEDS: Acetaminophen 325 MG TABLET 650 MG PO ×2 (11:36→22:25)
[2022-12-15 12:31] LABS: Hematocrit 28.6 % (37.0-47.0)
[2022-12-15 15:01] VITALS: BP 136/71; PULSE 76; RESP 20; TEMP 36.1; O2SAT 99
--- NOTE | 2022-12-15 16:38 | HO.POSTANES ---
Post Anesthesia Evaluation Post Anesthesia Evaluation Date of Service: 12/15/22 Vital Signs: Vital Signs Temp Pulse Resp BP Pulse Ox O2 Del Method 12/15/22 15:01 97.0 F 76 20 136/71 99 Room Air 12/15/22 11:30 97.7 F 73 20 140/72 H 98 Room Air 12/15/22 07:35 98.0 F 77 20 151/68 H 98 Room Air Anesthesia: Monitored Mental Status: Awake Pain Control: Satisfactory Nausea/Vomiting: None Hydration: Adequate Anesthesia-Related Issues: No Anes. Related Issues
--- NOTE | 2022-12-15 17:32 | HO.PM.IMPN ---
Subjective Subjective Date of Service: 12/15/22 Interval History: No acute events overnight. Remains NPO without active bleeding. No complaints of abdominal pain Review of Systems Denies chest pain Denies shortness of breath Denies nausea vomiting diarrhea Denies fever chills Physical Exam Vital Signs: Vital Signs: Last Vital Signs Temp 97.0 F 12/15/22 15:01 Pulse 76 12/15/22 15:01 Resp 20 12/15/22 15:01 BP 136/71 12/15/22 15:01 Pulse Ox 99 12/15/22 15:01 O2 Del Method Room Air 12/15/22 15:01 BMI result Body Mass Index 25.0 Const: Other: Awake alert oriented x3 no acute distress Resp: Other: Clear to auscultation bilaterally no rales rhonchi or wheezes Cardio: Other: No S4; positive S1-S2; no S3 murmurs rubs or gallops GI: Other: Soft nontender nondistended with normoactive bowel sounds Extrem: Other: No edema bilateral Objective Data Active Medications Acetaminophen (Acetaminophen 325 Mg Tablet) 650 mg PO Q6H PRN PRN Reason: Pain, Mild (Pain Scale 1-3) Last Admin: 12/15/22 11:36 Dose: 650 mg Documented By: MINERVA Docusate Sodium (Docusate Sodium 100 Mg Capsule) 100 mg PO DAILY PRN PRN Reason: Constipation Fluoxetine HCl (Fluoxetine Hcl 20 Mg Capsule) 20 mg PO DAILY [facility] Last Admin: 12/15/22 07:27 Dose: 20 mg Documented By: MINERVA Haloperidol Lactate (Haloperidol Lactate 5 Mg/Ml Vial) 0.5 mg IVPUSH ONCE PRN PRN Reason: Nausea and Vomiting Last Admin: 12/14/22 20:47 Dose: 0.5 mg Documented By: BONI Pantoprazole Sodium 80 mg/ (Sodium Chloride) 100 mls @ 10 mls/hr IV .Q10H [facility] Last Admin: 12/15/22 16:46 Dose: 8 mg/hr, 10 mls/hr Documented By: MIENRVA Latanoprost (Latanoprost 0.005 % Ophth Daisy 2.5 Ml Drops) 1 drop EYE-BOTH BEDTIME [facility] Last Admin: 12/14/22 23:01 Dose: 1 drop Documented By: HOLLIE Multivitamins/Vitamin C (Multivitamin Tablet) 1 tab PO DAILY [facility] Last Admin: 12/15/22 07:27 Dose: 1 tab Documented By: MINERVA Ondansetron HCl (Ondansetron Hcl 4 Mg/2 Ml Vial) 4 mg IVPUSH Q8H PRN PRN Reason: Nausea and Vomiting Polyethylene Glycol (Polyethylene Glycol 3350 17 Gm Powd.Pack) 17 gm PO DAILY PRN PRN Reason: Constipation Sodium Chloride (0.9 % Sodium Chloride Flush 3 Ml Syringe) 3 ml IVFLUSH QSHIFT [facility] Last Admin: 12/15/22 16:34 Dose: 3 ml Documented By: MINERVA Sucralfate (Sucralfate Oral Suspension 1 Gm/10 Ml Oral.Susp) 1 gm PO QIDACHS [facility] Last Admin: 12/15/22 16:34 Dose: 1 gm Documented By: MINERVA Sumatriptan Succinate (Sumatriptan Succinate 100 Mg Tablet) 100 mg PO DAILY PRN PRN Reason: Migraine Headache Trolamine Salicylate (Trolamine Salicylate 10 % Cream 85 Gm Tube) 1 appl TOPICAL BID PRN; Protocol PRN Reason: Knee pain Last Admin: 12/13/22 23:33 Dose: 1 appl Documented By: [place] 12/15/22 12:13 12/15/22 06:12 Labs: Laboratory Results - last 24 hr 12/14/22 12/14/22 12/15/22 22:12 22:12 06:12 MCV 84.3 MCH 26.4 L MCHC 31.3 RDW 16.6 H Plt Count 366 MPV 9.8 Immature Gran % (Auto) 0.5 H Neut % (Auto) 78.4 H Lymph % (Auto) 11.2 L [place] % (Auto) 8.7 Eos % (Auto) 0.7 Baso % (Auto) 0.5 Lymph # (Auto) 0.7 L [place] # (Auto) 0.5 Eos # (Auto) 0.0 Baso # (Auto) 0.0 Abs Immat Gran (auto) 0.03 Absolute Neuts (auto) 4.8 Absolute Nucleated RBC 0.000 Nucleated RBC % (auto) 0.0 Anion Gap 15 14 Estim Creat Clear Calc 33.0 31.8 Estimated GFR 48 46 Random Glucose 105 Fasting Glucose 95 Calcium 9.4 9.5 Magnesium 2.0 12/15/22 06:13 MCV 85.6 MCH 25.8 L MCHC 30.1 L RDW 16.8 H Plt Count 370 MPV 10.1 Immature Gran % (Auto) 0.2 Neut % (Auto) 58.2 Lymph % (Auto) 30.9 [place] % (Auto) 8.9 Eos % (Auto) 1.2 Baso % (Auto) 0.6 Lymph # (Auto) 1.5 [place] # (Auto) 0.4 Eos # (Auto) 0.1 Baso # (Auto) 0.0 Abs Immat Gran (auto) 0.01 Absolute Neuts (auto) 2.8 Absolute Nucleated RBC 0.000 Nucleated RBC % (auto) 0.0 Anion Gap Estim Creat Clear Calc Estimated GFR Random Glucose Fasting Glucose Calcium Magnesium Microbiology Microbiology Results: Microbiology 12/12/22 14:06 Blood Culture - Preliminary Blood - Venous No growth after 48 hours. 12/12/22 13:44 Blood Culture - Preliminary Blood - Venous No growth after 48 hours. Assessment and Plan (1) UGIB (upper gastrointestinal bleed): Status: Acute (2) Acute anemia: Status: Acute Plan 87-year-old female with history of breast cancer treated with lumpectomy chemotherapy radiation, history iron deficiency anemia, unspecified mood disorder, GERD, migraines, and history of pelvic mass s/p salpingo-oophorectomy admitted for acute blood loss anemia 2/2 UGIB. 1.Acute symptomatic blood loss anemia -responded well to transfusion -NPO post EGD at GI request... Hemoglobin stable no active bleeding -continue IV PPI -will discuss with GI question start clear liquids 2.Chronic iron deficiency anemia -restart iron as outpatient -follow-up clinically with serial CBCs Boots DNR/DNI Requires ongoing hospitalization for evaluation of symptomatic anemia Time Spent With Patient Time: Total time managing care of this patient today ____ minutes. Quality Stroke Does the patient have a stroke diagnosis?: No VTE Prior VTE?: No VTE Risk Level:: Medical - moderate - high VTE Device Contraindication: Treatment Not Indicated VTE Drug Contraindication: N/A - Med Ordered
--- NOTE | 2022-12-15 18:31 | PM.GIPN ---
Subjective Subjective Date of Service: 12/15/22 Interval History: Patient feels well. Daughter, Christine, is at the bedside. Patient has had no BM's, N/V, abdominal pain, nor dizziness today. Ambulating comfortably. Tolerating clear liquids. Critical Care Time (minutes): 0 Physical Exam Vital Signs: Vital Signs: Last Vital Signs Temp 97.0 F 12/15/22 15:01 Pulse 76 12/15/22 15:01 Resp 20 12/15/22 15:01 BP 136/71 12/15/22 15:01 Pulse Ox 99 12/15/22 15:01 O2 Del Method Room Air 12/15/22 15:01 BMI result Body Mass Index 25.0 Const: General: cooperative, healthy appearing, comfortable, no acute distress, well developed and alert GI: Other: Soft, NT, Nondistended Objective Data Labs 12/15/22 12:13 12/15/22 06:12 Labs: Laboratory Results - last 24 hr 12/14/22 12/14/22 12/15/22 22:12 22:12 06:12 WBC 6.1 RBC 3.37 L Hgb 8.9 L Hct 28.4 L MCV 84.3 MCH 26.4 L MCHC 31.3 RDW 16.6 H Plt Count 366 MPV 9.8 Immature Gran % (Auto) 0.5 H Neut % (Auto) 78.4 H Lymph % (Auto) 11.2 L [place] % (Auto) 8.7 Eos % (Auto) 0.7 Baso % (Auto) 0.5 Lymph # (Auto) 0.7 L [place] # (Auto) 0.5 Eos # (Auto) 0.0 Baso # (Auto) 0.0 Abs Immat Gran (auto) 0.03 Absolute Neuts (auto) 4.8 Absolute Nucleated RBC 0.000 Nucleated RBC % (auto) 0.0 Sodium 139 139 Potassium 4.1 4.5 Chloride 104 105 Carbon Dioxide 24 25 Anion Gap 15 14 BUN 21 H 21 H Creatinine 1.08 1.12 Estim Creat Clear Calc 33.0 31.8 Estimated GFR 48 46 Random Glucose 105 Fasting Glucose 95 Calcium 9.4 9.5 Magnesium 2.0 12/15/22 12/15/22 06:13 12:13 WBC 4.9 RBC 3.26 L Hgb 8.4 L 9.0 L Hct 27.9 L 28.6 L MCV 85.6 MCH 25.8 L MCHC 30.1 L RDW 16.8 H Plt Count 370 MPV 10.1 Immature Gran % (Auto) 0.2 Neut % (Auto) 58.2 Lymph % (Auto) 30.9 [place] % (Auto) 8.9 Eos % (Auto) 1.2 Baso % (Auto) 0.6 Lymph # (Auto) 1.5 [place] # (Auto) 0.4 Eos # (Auto) 0.1 Baso # (Auto) 0.0 Abs Immat Gran (auto) 0.01 Absolute Neuts (auto) 2.8 Absolute Nucleated RBC 0.000 Nucleated RBC % (auto) 0.0 Sodium Potassium Chloride Carbon Dioxide Anion Gap BUN Creatinine Estim Creat Clear Calc Estimated GFR Random Glucose Fasting Glucose Calcium Magnesium Microbiology Microbiology Results: Microbiology 12/12/22 14:06 Blood - Venous Blood Culture - Preliminary No growth after 48 hours. 12/12/22 13:44 Blood - Venous Blood Culture - Preliminary No growth after 48 hours. 12/12/22 Unknown Urine clean catch - Urine mahan top Urine Culture - Final Klebsiella pneumoniae Procedures Date of Service Date of Service: 12/15/22 Progress Note: A&P Assessment and plan (1) UGIB (upper gastrointestinal bleed): Status: Acute Assessment and Plan: Imp/Recs: 1. 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 AVM. Presently remaining stable without any signs of recurrent bleeding. Her diet will be advanced to full liquids on Saturday 12/16 if she remains stable, along with continuing the IV PPI infusion and Carafate. Would plan to further advance her diet to regular on 12/17 if things remain stable, as well as changing her over to a po PPI BID at that time with hopeful discharge later that day as well. I can send her Rx's over for her Carafate and Sucralfate from my office and would plan to see her in follow up as well. D/W the patient and her daughter in detail. They are comfortable with this plan. Thanks. Time Spent With Patient Time: Total time managing care of this patient today ____ minutes. Quality Stroke Does the patient have a stroke diagnosis?: No VTE Prior VTE?: No VTE Risk Level:: Medical - moderate - high VTE Device Contraindication: Treatment Not Indicated VTE Drug Contraindication: N/A - Med Ordered
[2022-12-15 18:52] VITALS: BP 106/65; PULSE 78; RESP 20; TEMP 36.6; O2SAT 96
[2022-12-15] MEDS: Latanoprost 0.005 % Ophth Sol 2.5 ML DROPS 1 DROP EYE-BOTH (22:26)
[2022-12-15] MEDS: Trolamine Salicylate 10 % Cream 85 GM TUBE 1 APPL TOPICAL (22:31)
[2022-12-15 22:59] VITALS: BP 126/66; PULSE 73; RESP 18; TEMP 36.4; O2SAT 99
[2022-12-16] VITALS (7 sets, daily range): BP systolic 112–170; BP diastolic 55–76; PULSE 69–89; RESP 18–22; TEMP 36.6–37.3; O2SAT 96–100
[2022-12-16] MEDS: Pantoprazole Sodium 80 MG in 0.9 % Sodium Chloride 80 ML 10 MG IV ×3 (03:34→23:21)
[2022-12-16 06:39] LABS: MANUAL DIFF FLAG NO
[2022-12-16 06:46] LABS: Eosinophils Absolute Auto 0.1 X10*3/uL (0.0-0.4); Eosinophils Percent Auto 3.1 % (0-4); Hematocrit 28.2 % (37.0-47.0); Hemoglobin 8.8 g/dl (12.0-16.0); Imm Gran Abs Auto 0.02 X10*3/uL (0.00-0.03); Imm Gran Pct Auto 0.5 % (0.0-0.4); Lymphocytes Absolute Auto 1.2 X10*3/uL (1.2-4.9); Lymphocytes Percent Auto 29.3 % (20-40); Mean Corpuscular HGB Conc 31.2 g/dl (31.0-35.0); Mean Corpuscular Hemoglobin 26.7 pg (27.0-33.0); Mean Corpuscular Volume 85.7 fL (80.0-98.0); Mean Platelet Volume 10.3 fL (9.4-12.3); Monocytes Absolute Auto 0.5 X10*3/uL (0.1-1.2); Monocytes Percent Auto 11.7 % (2-11); Neutrophils Absolute Auto 2.1 x10*3/uL (2.0-8.3); Neutrophils Percent Auto 54.4 % (45-73); Platelet Count 332 X10*3/uL (160-400); Red Blood Count 3.29 X10*6/uL (4.20-5.50); Red Cell Distribution Width 16.7 % (11.0-16.0); White Blood Count 3.9 X10*3/uL (4.8-10.8)
[2022-12-16 07:02] LABS: Anion Gap 12 (12-20); Blood Urea Nitrogen 19 mg/dL (9-16); Calcium 9.6 mg/dL (8.4-10.2); Carbon Dioxide 24 mmol/L (22-29); Chloride 105 mmol/L (96-108); Creatinine Clr Calc Pharmacy 32.6; Estimated Glomerular Filt Rate 47; Glucose Fasting 94 mg/dL (60-99); Potassium 3.7 mmol/L (3.3-5.1); Sodium 137 mmol/L (135-145)
[2022-12-16] MEDS: Multivitamin TABLET 1 TAB PO (09:35)
[2022-12-16] MEDS: FLUoxetine HCl 20 MG CAPSULE PO (09:35)
[2022-12-16] MEDS: Sucralfate Oral Suspension 1 GM/10 ML ORAL.SUSP PO ×4 (09:35→20:07)
[2022-12-16] MEDS: 0.9 % Sodium Chloride Flush 3 ML SYRINGE IVFLUSH ×3 (09:36→23:21)
--- NOTE | 2022-12-16 15:27 | MHC.CM.PN ---
EMR reviewed and per MD rounds, pt is not medically cleared for D/ at this time, she remains NPO and continues to be evaluated for symptomatic anemia. MD anticipates D/C on Wednesday. CM will continue to follow.
--- NOTE | 2022-12-16 16:42 | P.PNIM_ITS ---
Subjective Subjective Date of Service: 12/16/22 Interval History: No acute issues overnight. States no dark stools; light brown Review of Systems Denies chest pain Denies shortness of breath Denies nausea vomiting diarrhea Denies fever chills Physical Exam Vital Signs: Vital Signs: Last Vital Signs Temp 98.8 F 12/16/22 15:48 Pulse 82 12/16/22 15:48 Resp 19 12/16/22 15:48 BP 117/55 L 12/16/22 15:48 Pulse Ox 96 12/16/22 15:48 O2 Del Method Room Air 12/16/22 15:48 BMI result Body Mass Index 25.0 Const: Other: Awake alert oriented x3 no acute distress Resp: Other: Clear to auscultation bilaterally no rales rhonchi or wheezes Cardio: Other: No S4; positive S1-S2; no S3 murmurs rubs or gallops GI: Other: Soft nontender nondistended with normoactive bowel sounds Extrem: Other: No edema bilateral Objective Data Active Medications Acetaminophen (Acetaminophen 325 Mg Tablet) 650 mg PO Q6H PRN PRN Reason: Pain, Mild (Pain Scale 1-3) Last Admin: 12/15/22 22:25 Dose: 650 mg Documented By: GAGANDEEP Docusate Sodium (Docusate Sodium 100 Mg Capsule) 100 mg PO DAILY PRN PRN Reason: Constipation Fluoxetine HCl (Fluoxetine Hcl 20 Mg Capsule) 20 mg PO DAILY [facility] Last Admin: 12/16/22 09:35 Dose: 20 mg Documented By: GERMANIA Haloperidol Lactate (Haloperidol Lactate 5 Mg/Ml Vial) 0.5 mg IVPUSH ONCE PRN PRN Reason: Nausea and Vomiting Last Admin: 12/14/22 20:47 Dose: 0.5 mg Documented By: BONI Pantoprazole Sodium 80 mg/ (Sodium Chloride) 100 mls @ 10 mls/hr IV .Q10H MANJIT Last Admin: 12/16/22 13:15 Dose: 8 mg/hr, 10 mls/hr Documented By: MINERVA Latanoprost (Latanoprost 0.005 % Ophth Daisy 2.5 Ml Drops) 1 drop EYE-BOTH BEDTIME [facility] Last Admin: 12/15/22 22:26 Dose: 1 drop Documented By: GAGANDEEP Multivitamins/Vitamin C (Multivitamin Tablet) 1 tab PO DAILY [facility] Last Admin: 12/16/22 09:35 Dose: 1 tab Documented By: GERMANIA Ondansetron HCl (Ondansetron Hcl 4 Mg/2 Ml Vial) 4 mg IVPUSH Q8H PRN PRN Reason: Nausea and Vomiting Polyethylene Glycol (Polyethylene Glycol 3350 17 Gm Powd.Pack) 17 gm PO DAILY PRN PRN Reason: Constipation Sodium Chloride (0.9 % Sodium Chloride Flush 3 Ml Syringe) 3 ml IVFLUSH QSHIFT [facility] Last Admin: 12/16/22 15:15 Dose: 3 ml Documented By: MINERVA Sucralfate (Sucralfate Oral Suspension 1 Gm/10 Ml Oral.Susp) 1 gm PO QIDACHS [facility] Last Admin: 12/16/22 15:15 Dose: 1 gm Documented By: MINERVA Sumatriptan Succinate (Sumatriptan Succinate 100 Mg Tablet) 100 mg PO DAILY PRN PRN Reason: Migraine Headache Trolamine Salicylate (Trolamine Salicylate 10 % Cream 85 Gm Tube) 1 appl TOPICAL BID PRN; Protocol PRN Reason: Knee pain Last Admin: 12/15/22 22:31 Dose: 1 appl Documented By: TRACEYAC Labs 12/16/22 06:35 12/16/22 06:35 Labs: Laboratory Results - last 24 hr 12/16/22 12/16/22 06:35 06:35 MCV 85.7 MCH 26.7 L MCHC 31.2 RDW 16.7 H Plt Count 332 MPV 10.3 Immature Gran % (Auto) 0.5 H Neut % (Auto) 54.4 Lymph % (Auto) 29.3 [place] % (Auto) 11.7 H Eos % (Auto) 3.1 Baso % (Auto) 1.0 Lymph # (Auto) 1.2 [place] # (Auto) 0.5 Eos # (Auto) 0.1 Baso # (Auto) 0.0 Abs Immat Gran (auto) 0.02 Absolute Neuts (auto) 2.1 Absolute Nucleated RBC 0.000 Nucleated RBC % (auto) 0.0 Anion Gap 12 Estim Creat Clear Calc 32.6 Estimated GFR 47 Fasting Glucose 94 Calcium 9.6 Assessment and Plan (1) UGIB (upper gastrointestinal bleed): Status: Acute (2) Acute anemia: Status: Acute Plan 87-year-old female with history of breast cancer treated with lumpectomy chemotherapy radiation, history iron deficiency anemia, unspecified mood disorder, GERD, migraines, and history of pelvic mass s/p salpingo-oophorectomy admitted for acute blood loss anemia 2/2 UGIB. 1.Acute symptomatic blood loss anemia -responded well to transfusion -tolerating full liquids. Will advance as per GI -continue IV PPI/sulcralfate -advanced to regular diet in a.m. if tolerates fulls rest of the day. Switch PPI to p.o. and observe 2.Chronic iron deficiency anemia -restart iron as outpatient -follow-up clinically with serial CBCs [place]s DNR/DNI Requires ongoing hospitalization for evaluation of symptomatic anemia Time Spent With Patient Time: Total time managing care of this patient today ____ minutes. Quality Stroke Does the patient have a stroke diagnosis?: No VTE Prior VTE?: No VTE Risk Level:: Medical - moderate - high VTE Device Contraindication: Treatment Not Indicated VTE Drug Contraindication: N/A - Med Ordered
[2022-12-16] MEDS: Latanoprost 0.005 % Ophth Sol 2.5 ML DROPS 1 DROP EYE-BOTH (20:07)
--- NOTE | 2022-12-16 23:50 | P.PNGI_ITS ---
Subjective Subjective Date of Service: 12/16/22 Interval History: Patient seen at 7:30PM today. Patient feels well. Had a brown BM yesterday. No BM's today and no bleeding. Tolerating full liquids. Ambulating comfortably. Critical Care Time (minutes): 0 Physical Exam Vital Signs: Vital Signs: Last Vital Signs Temp 98.6 F 12/16/22 23:04 Pulse 76 12/16/22 23:04 Resp 18 12/16/22 23:04 BP 112/62 12/16/22 23:04 Pulse Ox 96 12/16/22 23:04 O2 Del Method Room Air 12/16/22 23:04 BMI result Body Mass Index 25.0 Const: General: cooperative, healthy appearing, comfortable, no acute distress, well developed, alert, awake and Physically active GI: Other: Abd-+BS, soft, NT, Nondistended Objective Data Labs 12/16/22 06:35 12/16/22 06:35 Labs: Laboratory Results - last 24 hr 12/16/22 12/16/22 06:35 06:35 WBC 3.9 L RBC 3.29 L Hgb 8.8 L Hct 28.2 L MCV 85.7 MCH 26.7 L MCHC 31.2 RDW 16.7 H Plt Count 332 MPV 10.3 Immature Gran % (Auto) 0.5 H Neut % (Auto) 54.4 Lymph % (Auto) 29.3 [place] % (Auto) 11.7 H Eos % (Auto) 3.1 Baso % (Auto) 1.0 Lymph # (Auto) 1.2 [place] # (Auto) 0.5 Eos # (Auto) 0.1 Baso # (Auto) 0.0 Abs Immat Gran (auto) 0.02 Absolute Neuts (auto) 2.1 Absolute Nucleated RBC 0.000 Nucleated RBC % (auto) 0.0 Sodium 137 Potassium 3.7 Chloride 105 Carbon Dioxide 24 Anion Gap 12 BUN 19 H Creatinine 1.09 Estim Creat Clear Calc 32.6 Estimated GFR 47 Fasting Glucose 94 Calcium 9.6 Microbiology Microbiology Results: Microbiology 12/12/22 14:06 Blood - Venous Blood Culture - Preliminary No growth after 48 hours. 12/12/22 13:44 Blood - Venous Blood Culture - Preliminary No growth after 48 hours. 12/12/22 Unknown Urine clean catch - Urine mahan top Urine Culture - Final Klebsiella pneumoniae Procedures Date of Service Date of Service: 12/16/22 Progress Note: A&P Assessment and plan (1) UGIB (upper gastrointestinal bleed): Status: Acute Plan Imp/Recs: 1. UGI bleed. She has remained stable and without further signs of bleeding. I did review with her that I want her to stay on the omeprazole BID and start the Sucralfate at home in hopes of maximally treating and preventing a recurrence of the UGI bleed. I reminded her to stay off all aspirin and NSAIDs residential.Her diet will be advanced for the AM and the IV PPI can be changed to po as well. I will plan a F/U office visit for her as well. She understood and was comfortable with the plan. Thanks Time Spent With Patient Time: Total time managing care of this patient today ____ minutes. Quality Stroke Does the patient have a stroke diagnosis?: No VTE Prior VTE?: No VTE Risk Level:: Medical - moderate - high VTE Device Contraindication: Treatment Not Indicated VTE Drug Contraindication: N/A - Med Ordered
[2022-12-17] VITALS (7 sets, daily range): BP systolic 124–168; BP diastolic 58–76; PULSE 68–78; RESP 18–20; TEMP 36.4–36.9; O2SAT 96–98
[2022-12-17] MEDS: Omeprazole 20 MG CAPSULE.DR PO ×3 (00:19→16:25)
[2022-12-17 06:07] LABS: MANUAL DIFF FLAG NO
[2022-12-17 06:21] LABS: Basophils Percent Auto 0.8 % (0-2); Eosinophils Absolute Auto 0.1 X10*3/uL (0.0-0.4); Eosinophils Percent Auto 2.6 % (0-4); Hematocrit 26.6 % (37.0-47.0); Hemoglobin 8.1 g/dl (12.0-16.0); Imm Gran Abs Auto 0.02 X10*3/uL (0.00-0.03); Imm Gran Pct Auto 0.5 % (0.0-0.4); Lymphocytes Absolute Auto 1.3 X10*3/uL (1.2-4.9); Lymphocytes Percent Auto 34.1 % (20-40); Mean Corpuscular HGB Conc 30.5 g/dl (31.0-35.0); Mean Corpuscular Hemoglobin 26.1 pg (27.0-33.0); Mean Corpuscular Volume 85.8 fL (80.0-98.0); Mean Platelet Volume 10.5 fL (9.4-12.3); Monocytes Absolute Auto 0.5 X10*3/uL (0.1-1.2); Monocytes Percent Auto 11.9 % (2-11); Neutrophils Absolute Auto 1.9 x10*3/uL (2.0-8.3); Neutrophils Percent Auto 50.1 % (45-73); Platelet Count 315 X10*3/uL (160-400); Red Cell Distribution Width 16.7 % (11.0-16.0); White Blood Count 3.8 X10*3/uL (4.8-10.8)
[2022-12-17 06:29] LABS: Anion Gap 11 (12-20); Blood Urea Nitrogen 14 mg/dL (9-16); Calcium 9.1 mg/dL (8.4-10.2); Carbon Dioxide 23 mmol/L (22-29); Chloride 107 mmol/L (96-108); Creatinine Clr Calc Pharmacy 34.9; Estimated Glomerular Filt Rate 51; Glucose Fasting 103 mg/dL (60-99); Potassium 3.6 mmol/L (3.3-5.1); Sodium 137 mmol/L (135-145)
[2022-12-17] MEDS: Sucralfate Oral Suspension 1 GM/10 ML ORAL.SUSP PO ×4 (08:08→19:27)
[2022-12-17] MEDS: Multivitamin TABLET 1 TAB PO (08:08)
[2022-12-17] MEDS: FLUoxetine HCl 20 MG CAPSULE PO (08:08)
[2022-12-17 11:36] LABS: Iron 11 mcg/dL (30-160); Percent Iron Saturation 6 % (15-50); Total Iron Binding Capacity 172 mcg/dL (228-428); Unsaturated Iron Binding 161 ug/dL
[2022-12-17 11:49] LABS: Ferritin 115 ng/mL (10-250)
[2022-12-17] MEDS: Iron Sucrose Complex 200 MG in 0.9 % Sodium Chloride 100 ML 440 MG IV (12:27)
[2022-12-17] MEDS: Acetaminophen 325 MG TABLET 650 MG PO (13:08)
--- NOTE | 2022-12-17 15:21 | PM.DS ---
DS: Providers Provider Date of Service: 12/17/22 Date of admission: 12/12/22 16:12 Date of discharge: 12/17/22 Primary care physician: Jl Hameed MD Consults: 12/12/22 16:11 Consult to Gastroenterology Routine Consulting Provider: Dawood Allred Reason for consultation: UGIB DS: Diagnosis Discharge Diagnosis (1) UGIB (upper gastrointestinal bleed): Status: Acute DS: Summary Hospital Course Hospital Course: 87-year-old female with history of breast cancer treated with lumpectomy chemotherapy radiation, history iron deficiency anemia, unspecified mood disorder, GERD, migraines, and history of pelvic mass s/p salpingo-oophorectomy presented to the ED earlier today with her daughter for evaluation of weakness, fatigue, and black stool.? There has also been lightheadedness.? She reports she has been experiencing black tarry stool for about 3 weeks which she thought was related to her iron supplement.? However prior to this stool was brown.? Over the last week she has been developing increasing weakness, fatigue, and dyspnea on exertion.? Her daughter has also noted significant pallor.? Denies any fevers, chills, abdominal pain, nausea, vomiting, diarrhea, constipation, hematochezia, palpitations, or chest pain. On arrival, vital stable, no hypotension.? Has had intermittent mild tachycardia.? No leukocytosis.? H/H 6.1/20.4%, MCV 81.9 %.? Creatinine 1.13, BUN 35, oxalate levels normal.? Troponin 3.5, BNP 348.? Stool occult blood positive.? Checks x-ray negative for any acute cardiopulmonary abnormality.? EKG shows sinus tachycardia, rate [address]/T-wave abnormality.? E.d. did discuss case with Gastroenterology recommending admission and will follow.? While in the ED 2 units packed red blood cells ordered.? Also given 40 mg IV pantoprazole. She uses aspirin occassionally for headache, took two in the last week. No other NSAIDs. Pt did have endoscopy, colonoscopy, video capsule endoscopy last year without significant findings. Hospital Course Started on IV PPI; seen in consultation day of admission by Gastroenterology. 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 Patient was kept NPO for the remainder of 12/14;12/16 patient started on clear liquids which was advanced to full which she tolerated well. Ppi IV was switched to p.o. without issue. Given her iron deficiency and hemoglobin, 1 unit of packed red cells was given along with IV iron [address] Allred. He will follow-up in the office. At this point in time she is medically acceptable for discharge Time Spent with Patient Time attestation: Total time managing care of this patient today ____ minutes. Discharge coordination time: Greater than 30 minutes Quality: Safe Use of Opioids Does Pt have an Active Cancer Diagnosis on the Problem List?: No Quality: Stroke Does the patient have a stroke diagnosis?: No Physical Exam Vital Signs: Vital Signs: Last Vital Signs Temp 98.3 F 12/17/22 11:31 Pulse 68 12/17/22 11:31 Resp 20 12/17/22 11:31 BP 126/61 12/17/22 11:31 Pulse Ox 97 12/17/22 11:31 O2 Del Method Room Air 12/17/22 11:31 BMI result Body Mass Index 25.0 Const: Other: Awake alert oriented x3 no acute distress Resp: Other: Clear to auscultation bilaterally no rales rhonchi or wheezes Cardio: Other: No S4; positive S1-S2; no S3 murmurs rubs or gallops GI: Other: Soft nontender nondistended with normoactive bowel sounds Extrem: Other: No edema bilateral DS: Data Data Completed and Pending Labs on day of discharge: Laboratory Results - last 24 hr 12/17/22 12/17/22 12/17/22 05:35 05:35 12:57 WBC 3.8 L RBC 3.10 L Hgb 8.1 L Hct 26.6 L MCV 85.8 MCH 26.1 L MCHC 30.5 L RDW 16.7 H Plt Count 315 MPV 10.5 Immature Gran % (Auto) 0.5 H Neut % (Auto) 50.1 Lymph % (Auto) 34.1 [place] % (Auto) 11.9 H Eos % (Auto) 2.6 Baso % (Auto) 0.8 Lymph # (Auto) 1.3 [place] # (Auto) 0.5 Eos # (Auto) 0.1 Baso # (Auto) 0.0 Abs Immat Gran (auto) 0.02 Absolute Neuts (auto) 1.9 L Absolute Nucleated RBC 0.000 Nucleated RBC % (auto) 0.0 Sodium 137 Potassium 3.6 Chloride 107 Carbon Dioxide 23 Anion Gap 11 L BUN 14 Creatinine 1.02 Estim Creat Clear Calc 34.9 Estimated GFR 51 Fasting Glucose 103 H Calcium 9.1 Iron 11 L TIBC 172 L % Saturation 6 L Unsat Iron Binding 161 Ferritin 115 Blood Type O Positive Antibody Screen NEGATIVE Enhanced Crossmatch See Detail Preliminary micro results at discharge 12/12/22 14:06 Blood Culture - Preliminary Blood - Venous No growth after 48 hours. 12/12/22 13:44 Blood Culture - Preliminary Blood - Venous No growth after 48 hours. Discharge Plan Discharge Anticipated Discharge Date/Time: 12/17/22 15:17 Patient Disposition: Home, Self-Care Discharge Diagnosis: Upper GI bleed Referrals: Jl Hameed MD [Primary Care Provider] - 1 Week Discharge Medications: New sucralfate 100 mg/mL Suspension 1 g PO QIDACHS Qty: 420 0RF omeprazole 20 mg Capsule,Delayed Release(Dr/Ec) 20 mg PO BID@0630,1630 Qty: 60 0RF Continued latanoprost 0.005 % drops 1 drp ophthalmic (eye) BEDTIME sumatriptan succinate 100 mg tablet 1 tab PO DIRECTED PRN (Reason: Migraine Headache) Rx Instructions: MRX1 after 2 hours fluoxetine 20 mg capsule 1 cap PO DAILY ferrous sulfate [iron] 325 mg (65 mg iron) Tablet 325 mg PO DAILY omeprazole 20 mg Capsule,Delayed Release(Dr/Ec) 20 mg PO DAILY multivitamin Tablet 1 tab PO DAILY polyethylene glycol 3350 [Miralax] 17 gram/dose Powder 17 g PO DAILY PRN (Reason: Constipation) acetaminophen [Tylenol Extra Strength] 500 mg tablet 1,000 mg PO Q6H PRN (Reason: pain or fever) Discharge Orders: Discharge Order (Routine); Ordered 12/17/22 Ordered By: William Villarreal Diet: Advance to usual diet Activity on Discharge: As tolerated Stand Alone Forms: Patient Portal Discharge page Care Plan Goals: Dr. Allred called in medicine for your stomach to your pharmacy. Take as directed Health Concerns: [place] diet advancing to normal diet over the next several days Plan of Treatment: Follow-up with Dr. Allred as scheduled Assessment: See discharge summary
--- NOTE | 2022-12-17 15:59 | MHC.CM.PN ---
Pt is medically cleared for D/C home with family support. Pts daughter to transport her mother home.
== END 2022-12-17 19:47 | disposition home or self-care (01) | DRG 378 ==
LOC: HO.ED 15:00 → HO.EDOVER 16:20 → HO.IMC 12-13 07:50
PROVIDERS: Internal Medicine; Nurse Practitioner Family; Admitting Provider Physician Assistant; Emergency Provider Emergency Medicine; PCP Internal Medicine; Visit Provider Hospitalist
PROC: 0DJ08ZZ Inspection of Upper Intestinal Tract, Via Natural or Artificial Opening Endoscopic (ICD-10-PCS; CPT 43235; principal; 2022-12-14 16:30)
DX: K31.811 Angiodysplasia of stomach and duodenum with bleeding (principal); D62 Acute posthemorrhagic anemia; K25.0 Acute gastric ulcer with hemorrhage; N39.41 Urge incontinence; K44.9 Diaphragmatic hernia without obstruction or gangrene; K21.9 Gastro-esophageal reflux disease without esophagitis; F39 Unspecified mood [affective] disorder; Z66 Do not resuscitate; Z20.822 Contact with and (suspected) exposure to COVID-19; Z87.891 Personal history of nicotine dependence; Z79.899 Other long term (current) drug therapy
CPT/HCPCS: 0241U; 36415; 71046; 80048; 80076; 80179; 81001; 82272; 82728; 83540; 83605; 83735; 83880; 84484; 85014; 85018; 85025; 85610; 86850; 86900; 86901; 86920; 86921; 87040; 87086; 87088; 87186; 93005; 99285; J0171; J1756; J1940; J2405; J3010; P9016

== ENCOUNTER → 2022-12-12 16:12 | Outpatient (BNV) | payer MEDICARE, SELFPAY | PROVIDERS: Admitting Provider Physician Assistant; Emergency Provider Emergency Medicine; PCP Internal Medicine; Visit Provider Physician Assistant | DX: K92.2 Gastrointestinal hemorrhage, unspecified (principal); D64.9 Anemia, unspecified | CPT/HCPCS: 99223; 99233; 99239 ==

== ENCOUNTER 2022-12-25 09:41 | Outpatient (REF) | payer MEDICARE, SELFPAY ==
--- NOTE | ~2022-12-25 | XR_ITS ---
EXAMINATION: XR KNEE, RIGHT XR KNEE, LEFT XR KNEE AP STANDING CLINICAL INFORMATION: Pain. COMPARISON: Radiographs dated 12/14/2018. TECHNIQUE: Four views of the right knee. Four views of the left knee. AP bilateral standing view of the knees was obtained. FINDINGS: Prosthetic components of the bilateral total knee arthroplasties are appropriately aligned, without periprosthetic fracture or abnormal lucency. No component migration. There are moderately large bilateral joint effusions. XR/XR knee LT 2V IMPRESSION: 1. Appropriate alignment of the bilateral total knee arthroplasties, without evidence of hardware failure or loosening. 2. There are moderately large bilateral joint effusions.
--- NOTE | ~2022-12-25 | XR_ITS ---
EXAMINATION: XR KNEE, RIGHT XR KNEE, LEFT XR KNEE AP STANDING CLINICAL INFORMATION: Pain. COMPARISON: Radiographs dated 12/14/2018. TECHNIQUE: Four views of the right knee. Four views of the left knee. AP bilateral standing view of the knees was obtained. FINDINGS: Prosthetic components of the bilateral total knee arthroplasties are appropriately aligned, without periprosthetic fracture or abnormal lucency. No component migration. There are moderately large bilateral joint effusions. XR/XR knee standing BI IMPRESSION: 1. Appropriate alignment of the bilateral total knee arthroplasties, without evidence of hardware failure or loosening. 2. There are moderately large bilateral joint effusions.
--- NOTE | ~2022-12-25 | XR_ITS ---
EXAMINATION: XR KNEE, RIGHT XR KNEE, LEFT XR KNEE AP STANDING CLINICAL INFORMATION: Pain. COMPARISON: Radiographs dated 12/14/2018. TECHNIQUE: Four views of the right knee. Four views of the left knee. AP bilateral standing view of the knees was obtained. FINDINGS: Prosthetic components of the bilateral total knee arthroplasties are appropriately aligned, without periprosthetic fracture or abnormal lucency. No component migration. There are moderately large bilateral joint effusions. XR/XR knee RT 2V IMPRESSION: 1. Appropriate alignment of the bilateral total knee arthroplasties, without evidence of hardware failure or loosening. 2. There are moderately large bilateral joint effusions.
== END 2022-12-25 09:42 | disposition home or self-care (01) ==
LOC: HO.HOSX 09:41
PROVIDERS: PCP Internal Medicine; Visit Provider Orthopaedic Surgery
DX: Z96.653 Presence of artificial knee joint, bilateral (principal)
CPT/HCPCS: 73560; 73565

== ENCOUNTER 2022-12-25 09:41 | Outpatient (AMB) | payer MEDICARE, SELFPAY ==
--- NOTE | 2022-12-25 09:44 | A.OFFVIS_ITS ---
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 Patient reports that she has had knee pain in both of her knees for quite some time now. she has buzz both of her knees replaced with Dr. Hodge. She explains that the knees are equally painful. 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 She has pain with daily activity, worse with standing from a seated position or beginning to walk, along with stiffness. She does not walk with an assistive device and is trying to avoid doing so. She says she had cysts removed from her ovaries in ~04/2022, which she is recovering from. She does not want to consider any more surgeries at this time. She recently had a GI bleed treated on 12/14/22 and was told to avoid NSAIDs or aspirin. She has a hx of bilateral TKA's done by Dr. Greer. Her right knee was replaced in ~2015. [facility] Medical History Cataracts, bilateral Cholecystectomy planned Diverticulitis FH: total knee replacement Hx of breast cancer Iron deficiency anemia Migraine Surgical History Cataract H/O colonoscopy H/O total knee replacement History of colostomy reversal Family History Sister Breast cancer Diabetes Mother Diabetes Social History Household Members: Family and Children Household Members Other:: 3 Housing: House Are you a primary residential care facility manager to a significant other at home: No Do you presently have visiting nurse or other home services: No Alcohol intake: never Patient Tobacco Use Status: Former Tobacco user service: No Current occupational status: retired Review of Systems Const All systems reviewed & are unremarkable except as noted in HPI and below Physical Exam Const General: no acute distress, alert and awake Orientation/consciousness: patient oriented x3 HEENT Head: Yes normocephalic and Yes atraumatic Eyes EOM: EOMs intact bilaterally Resp Effort & Inspection: normal respiratory effort and able to speak in complete sentences Cardio Jugular venous distension: no JVD Skin General skin exam: turgor normal Rashes: no rashes Neuro General: patient oriented x3 Extrem Other: Bilateral Knees: TTP medial joint line bilaterally Right knee effusion Walks gingerly Psych Appearance: grossly normal Affect: normal affect Attitude: cooperative Results Reviewed Results Reviewed: I personally reviewed relevant radiographs. Bilateral total knee arthroplasty in expected post operative position with no hardware complications. There is osteolysis around the tibial baseplate on the right and less so on the left. Assessment & Plan Assessment & Plan (1) Bilateral knee pain: Code(s): M25.561 - Pain in right knee; M25.562 - Pain in left knee Plan: This is an 87 year old woman with bilateral knee pain, with a hx of bilateral TKA done by Dr. Greer. She has pain with daily activity, worse with standing from a seated position or ambulation. She does not ambulate with an assistive device and would like to avoid doing so. I suspect tht there is loosening of the prosthesis on the right and possibley on the left. She is not a surgical candidate given her age and I discussed her diagnosis and treatment options. She is adamant that she would like to avoid surgery, and is unable to take NSAIDs due to a hx of GI bleed. I referred her to Dr. Brown in Pain Management to discuss treatment options and recommend activity modification. She should be mindful to not push through pain, and consider an assistive device to minimize the risks of falls. She can follow up prn. (2) History of bilateral knee arthroplasty: Comment: Right ~2015, by Dr. Greer Code(s): Z96.653 - Presence of artificial knee joint, bilateral Plan Scribed for Lucian Rubio MD by Tee Esparza medical parasitologist, on 12/25/22 at 10:20 AM, EST. Orders: Orders XR knee LT 2V 12/25/22 M25.569 - Pain in unspecified knee XR knee RT 2V 12/25/22 M25.569 - Pain in unspecified knee XR knee standing BI 12/25/22 M25.569 - Pain in unspecified knee Referrals Pain Management Referral Z96.653 - Presence of artificial knee joint, bilateral Medications: Discontinued acetaminophen 500 mg PO Q6H PRN 20 tabs 0RF pain or fever Coding Level of Care Code New Pt Level 4 (21168) Diagnoses Bilateral knee pain M25.561; M25.562 History of bilateral knee arthroplasty Z96.653
== END 2022-12-25 10:21 | disposition home or self-care (01) ==
PROVIDERS: PCP Internal Medicine; Visit Provider Orthopaedic Surgery
DX: M25.561 Pain in right knee (principal); M25.562 Pain in left knee; Z96.653 Presence of artificial knee joint, bilateral
CPT/HCPCS: 99204

== ENCOUNTER 2022-12-29 09:16 | Outpatient (REF) | payer MEDICARE, SELFPAY ==
[2022-12-29 13:27] LABS: MANUAL DIFF FLAG NO
[2022-12-29 13:42] LABS: Basophils Percent Auto 0.8 % (0-2); Eosinophils Absolute Auto 0.1 X10*3/uL (0.0-0.4); Eosinophils Percent Auto 3.2 % (0-4); Hematocrit 33.8 % (37.0-47.0); Hemoglobin 10.2 g/dl (12.0-16.0); Lymphocytes Absolute Auto 1.4 X10*3/uL (1.2-4.9); Lymphocytes Percent Auto 36.3 % (20-40); Mean Corpuscular HGB Conc 30.2 g/dl (31.0-35.0); Mean Corpuscular Hemoglobin 26.4 pg (27.0-33.0); Mean Corpuscular Volume 87.6 fL (80.0-98.0); Mean Platelet Volume 11.3 fL (9.4-12.3); Monocytes Absolute Auto 0.3 X10*3/uL (0.1-1.2); Monocytes Percent Auto 7.6 % (2-11); Neutrophils Percent Auto 52.1 % (45-73); Platelet Count 336 X10*3/uL (160-400); Red Blood Count 3.86 X10*6/uL (4.20-5.50); Red Cell Distribution Width 16.7 % (11.0-16.0); White Blood Count 3.8 X10*3/uL (4.8-10.8)
[2022-12-29 14:05] LABS: Iron 31 mcg/dL (30-160); Percent Iron Saturation 16 % (15-50); Total Iron Binding Capacity 189 mcg/dL (228-428); Unsaturated Iron Binding 158 ug/dL
[2022-12-29 14:24] LABS: Ferritin 222 ng/mL (10-250)
== END 2022-12-29 09:17 | disposition home or self-care (01) ==
LOC: HO.MANLDS 09:16
PROVIDERS: Visit Provider Physician Assistant
DX: K92.1 Melena (principal)
CPT/HCPCS: 36415; 82728; 83540; 85025

== ENCOUNTER 2022-12-30 11:05 | Outpatient (REF) | payer MEDICARE, SELFPAY ==
[2023-01-03 06:04] LABS: Fecal Fat Qualitative Normal (Normal)
== END 2022-12-30 11:06 | disposition home or self-care (01) ==
LOC: HO.MANLNP 11:05
PROVIDERS: Visit Provider Physician Assistant
DX: K92.1 Melena (principal)
CPT/HCPCS: 82705

== ENCOUNTER 2023-01-11 07:54 | Outpatient (AMB) | payer MEDICARE, SELFPAY ==
--- NOTE | 2023-01-11 08:01 | A.OFFVIS_ITS ---
Intake Vital Signs 01/11/23 08:03 Height 5 ft 5 in Weight 143 lb BMI 23.8 BP 108/59 L Blood Pressure Location Lt brachial Position Sitting Respiration 13 Pulse 90 Pulse Source Pulse Oximeter Pulse Oximetry (%) 99 Oxygen Delivery Method Room Air Intake Visit Reasons: Presence of artificial knee joint, bilateral Allergies sulfamethoxazole [From Bactrim] Allergy (Severe, Verified 01/11/23 08:06) rash/itching trimethoprim [From Bactrim] Allergy (Severe, Verified 01/11/23 08:06) rash/itching Penicillins Allergy (Mild, Verified 01/11/23 08:06) RASH Khejlin-JSO-JdV Reductase Inhibitor [Statins: Hmg-Coa Reductase Inhibito] Allergy (Mild, Verified 01/11/23 08:06) RASH levofloxacin [From LEVAQUIN] Allergy (Unknown, Verified 01/11/23 08:06) RED RASH gabapentin Allergy (Verified 01/11/23 08:06) Unknown pregabalin [From Lyrica] Allergy (Verified 01/11/23 08:06) Unknown Medication List - Last Reconciled 01/11/23 by Elissa Patel LPN acetaminophen (Tylenol Extra Strength) 1,000 mg PO Q6H PRN ferrous sulfate (iron) 325 mg PO DAILY fluoxetine 1 cap PO DAILY latanoprost 0.005% 1 drp ophthalmic (eye) BEDTIME mirabegron ER (Myrbetriq) 25 mg PO DAILY multivitamin 1 tab PO DAILY omeprazole 20 mg PO BID@0630,1630 polyethylene glycol 3350 (Miralax) 17 grams PO DAILY PRN sucralfate 1 g (10 mL) PO QIDACHS sumatriptan succinate 1 tab PO DIRECTED PRN HPI Presence of artificial knee joint, bilateral HPI Details 87-year-old female who presents today to the office for a new patient evaluation of the presence of bilateral artificial knee joints. The patient has a history of bilateral TKAs performed by Dr. Greer. She had her right knee replaced in 2016. The patient was referred by Dr. Rubio. The patient reports bilateral knee pain (L>R). She describes her pain as an ache in her bilateral knees. She rates her pain at 7 to 10 out of 10 in intensity that has progressively worsened over the years and is worse in the morning when it is rated at 7 out of 10 in the late evening it is about 5 out of 10. She has pain with daily activity, worse with standing from a seated position or beginning to walk, along with stiffness. She has some bruising on her left medial knee from the recent fall. She does not walk with an assistive device and is trying to avoid doing so. She is currently taking Tylenol. Her pain is worse during humid climate. She recently had a GI bleed treated on 12/14/22 and was told to avoid NSAIDs or aspirin. She has tried pregabalin in the past and not tolerated it well. The patient has not tried physical therapy in the past due to her recent surgical history. She has been performing gentle stretching exercises at home. She had cysts removed from her ovaries in 04/2022. She does not want to consider any more surgeries at this time. [facility] Medical History Cataracts, bilateral Cholecystectomy planned Diverticulitis FH: total knee replacement Hx of breast cancer Iron deficiency anemia Migraine Surgical History Cataract H/O colonoscopy H/O total knee replacement History of colostomy reversal Family History Sister Breast cancer Diabetes Mother Diabetes Social History Household Members: Family and Children Household Members Other:: 3 Housing: House Are you a primary care transition mgr to a significant other at home: No Do you presently have visiting nurse or other home services: No Alcohol intake: never Patient Tobacco Use Status: Former Tobacco user service: No Current occupational status: retired Review of Systems Const All systems reviewed & are unremarkable except as noted in HPI and below Physical Exam Vital Signs: Last Vital Signs Pulse 90 01/11/23 08:03 Resp 13 01/11/23 08:03 BP 108/59 L 01/11/23 08:03 Pulse Ox 99 01/11/23 08:03 Oxygen Delivery Method Room Air 01/11/23 08:03 BMI result Body Mass Index 23.8 General: Appears afebrile. Alert and oriented. Mood and affect appropriate. Follows and participates in conversation appropriately. Respiratory effort is unlabored. Able to transition from sit to stand unassisted. Ambulates with bilaterally normal heel strike and toe off. Left knee: She has bruising on her left medial knee from the recent fall. She has swelling in both knees. (Right more than the left.) There is no particular tenderness on palpation. Results Reviewed Results Reviewed: 12/25/22: XR KNEE, RIGHT, XR KNEE, LEFT, XR KNEE AP STANDING FINDINGS: Prosthetic components of the bilateral total knee arthroplasties are appropriately aligned, without periprosthetic fracture or abnormal lucency. No component migration. There are moderately large bilateral joint effusions. IMPRESSION: 1. Appropriate alignment of the bilateral total knee arthroplasties, without evidence of hardware failure or loosening. 2. There are moderately large bilateral joint effusions. Assessment & Plan Assessment & Plan (1) Chronic knee pain after total replacement of both knee joints: Code(s): M25.561 - Pain in right knee; M25.562 - Pain in left knee; G89.28 - Other chronic postprocedural pain; Z96.653 - Presence of artificial knee joint, bilateral Plan We discussed temporary vs. permanent peripheral nerve stimulators as possible treatment options. Will schedule her for a temporary saphenous nerve stimulator placement starting with the left side for two months followed by the right side for two months. Also informed the patient that insurance approval is required. We will file a PA for approval and keep her updated. Discussed the risks and benefits of the procedure with the patient in detail. All questions were answered. The patient is on board with the plan. Justification for interventional therapy: ? Patient with average pain > 6/10 ? Patient has exhausted conservative therapy including neuropathic medications, acetaminophen, and is unable to take NSAIDs due to a history of GI bleed. ? She has participated in physical therapy in the past and continues to be engaged in home exercises at this time. She is unable to participate in formal PT at present, secondary to instability and pain. Scribed for Dr. Brown by Oskar Landry, medical office technologist, on 01/11/2023. I, Dr. Brown, have personally reviewed and agree with the information entered by the scribe. Coding Level of Care Code New Pt Level 3 (28327) Diagnoses Chronic knee pain after total replacement of both knee joints M25.561; M25.562; G89.28; Z96.653
[2023-01-11 08:03] VITALS: BP 108/59; PULSE 90; RESP 13; O2SAT 99; BMI 23.8
== END 2023-01-11 08:39 | disposition home or self-care (01) ==
PROVIDERS: PCP Internal Medicine; Visit Provider Internal Medicine
DX: G89.28 Other chronic postprocedural pain (principal); M25.561 Pain in right knee; M25.562 Pain in left knee; Z96.653 Presence of artificial knee joint, bilateral
CPT/HCPCS: 99204

== ENCOUNTER → 2023-01-11 07:54 | Outpatient (BNVA) | payer MEDICARE, SELFPAY | PROVIDERS: PCP Internal Medicine; Visit Provider Internal Medicine ==

== ENCOUNTER 2023-01-11 09:11 | Outpatient (REF) | payer MEDICARE, SELFPAY ==
[2023-01-11 14:48] LABS: Iron 33 mcg/dL (30-160); Percent Iron Saturation 18 % (15-50); Total Iron Binding Capacity 187 mcg/dL (228-428); Unsaturated Iron Binding 154 ug/dL
[2023-01-11 15:07] LABS: Ferritin 237 ng/mL (10-250)
== END 2023-01-11 09:12 | disposition home or self-care (01) ==
LOC: HO.MANLDS 09:11
PROVIDERS: Visit Provider Physician Assistant
DX: K92.1 Melena (principal)
CPT/HCPCS: 36415; 82728; 83540

== ENCOUNTER 2023-02-17 12:44 | Day surgery (SDC) | payer MEDICARE, SELFPAY ==
[2023-02-17 13:00] VITALS: BMI 24.3
[2023-02-17 13:20] VITALS: BP 140/84; PULSE 79; RESP 16; TEMP 36.8; O2SAT 99
[2023-02-17 14:30] VITALS: BP 149/83; PULSE 81; RESP 16; TEMP 36.8; O2SAT 98
--- NOTE | 2023-02-17 15:54 | P.BOP_ITS ---
Brief Operative Note Date of Service: 02/17/23 Pre-op diagnosis: Chronic left knee pain following knee arthroplasty Post-op diagnosis: same Procedure: Temporary left saphenous nerve stimulator placement Implants: Sprint temporary PNS system Surgeon: Vaughn Brown MD Anesthesia: local Was an Lacquer Machine Feeder used for this Procedure?: No Estimated blood loss (mL): 1 Pathology: none sent Condition: stable Disposition: same day
--- NOTE | 2023-02-17 15:54 | MHC.SHP ---
Pre-Procedural Eval Section A Date of Service: 02/17/23 The patient is an INPATIENT: No Changes since office visit: Yes Patient answered all questions The History & Physical has been completed within 30 days and I have reviewed it.: Yes Section B Chief Complaint: Pain in left knee Relevant Family History (Specify if Yes): No Relevant Social History: None Present Medications: see Short Stay Collaborative assessment Medical History: No relevant PMH History of Previous Operations: Relevant previous surgery/procedure and date(s) (TKA) Allergies: Allergies Allergy/AdvReac Type Severity Reaction Status Date / Time sulfamethoxazole Allergy Severe rash/itchin Verified 01/11/23 08:06 [From Bactrim] g trimethoprim [From Bactrim] Allergy Severe rash/itchin Verified 01/11/23 08:06 g Penicillins Allergy Mild RASH Verified 01/11/23 08:06 pregabalin [From Lyrica] Allergy Mild Rash Verified 02/17/23 13:05 Ejhfjrh-OYK-AbO Reductase Allergy Mild RASH Verified 01/11/23 08:06 Inhibitor [Statins: Hmg-Coa Reductase Inhibito] levofloxacin [From LEVAQUIN] Allergy Unknown RED RASH Verified 01/11/23 08:06 gabapentin Allergy Unknown Verified 01/11/23 08:06 Review of Systems Sugical H&P ROS: Negative: Constitution, Cardiovascular and Respiratory Exam Surgical H&P Exam: Normal: HEENT, Normal: Heart and Normal: Lungs Plan Diagnosis/Plan: Unchanged I have reviewed the history and physical and performed a pertinent physical examination on my patient. No changes have occurred unless specified. Time Spent With Patient Time: Total time managing care of this patient today ____ minutes.
--- NOTE | 2023-02-17 15:55 | P.OP_ITS ---
Operative Note Operative Note Date of Service: 02/17/23 Narrative: Peripheral Nerve Stimulation Temporary Lead Placement, Ultrasound-Guided, Saphenous Nerve, Left ? After the risks, benefits and alternatives were discussed with the patient and informed consentwas obtained, patient was placed in the supine position and padded to foster comfort. Appropriate skin and bony landmarks were identified, and pertinent vascular structures were located. The skin overlying the needle entry site was prepped and draped in sterile fashion. Ultrasound was used to identify the femoral artery, the femoral vein and the saphenous nerve. After identifying and marking the intended target along the course of the saphenous nerve, the skin around the planned entry point and the subcutaneous tissues were injected with local anesthetic. An introducer needle and stimulating probe were assembled, inserted and advanced along the intended course of the saphenous; nerve, taking care to maintain the proper depth of insertion as the introducer was advanced under ultrasound guidance. The introducer needle was delivered to a location in proximity to the nerve taking care not to puncture the femoral artery or the vein. Multiple stimulation parameters were used to deliver stimulation to the saphenous nerve in concert with stimulating at multiple positions around the nerve. Nerve target acquisition was confirmed noting generation of sensory and mild motor effects (paresthesia, muscle tension, etc) in the medial knee, leg and ankle; corresponding to the distribution of the saphenous nerve. Various electrical parameter combinations were tested, and the lead location was adjusted (physica lly relocated under ultrasound guidance) until the patient indicated medial knee paresthesia and tension overlapping the distribution of the patient?s typical region of pain. The stimulating probe was removed from the introducer and a percutaneous lead was guided through the needle and delivered to a location in similar proximity to the nerve. Final location was verified with electrical stimulation and documented. The introducer needle was removed, and the exposed end of the percutaneous lead was attached to an external stimulator unit. Various electrical parameter combinations were again tested until the patient indicated paresthesia and muscle tension overlapping the distribution of the patient?s typical region of pain. After confirming that lead impedance was in the normal range, the external unit was detached, the needle was removed, and the lead was anchored at the skin. The lead was threaded into the connector block and electrical continuity and desired patient response was confirmed. The connector block was attached to the external stimulator unit. The site was covered with a sterile occlusive dressing. A final ultrasound image was taken to document final placement. The patient was observed for stability of vital signs and comfort.
== END 2023-02-17 15:02 | disposition home or self-care (01) ==
PROVIDERS: PCP Internal Medicine; Visit Provider Internal Medicine
PROC: (CPT 64555; principal; 2023-02-17 14:20)
DX: M25.562 Pain in left knee (principal); G89.29 Other chronic pain; M25.462 Effusion, left knee; M25.461 Effusion, right knee; Z96.653 Presence of artificial knee joint, bilateral; D50.9 Iron deficiency anemia, unspecified; G43.909 Migraine, unspecified, not intractable, without status migrainosus; Z85.3 Personal history of malignant neoplasm of breast; Z79.899 Other long term (current) drug therapy; Z88.0 Allergy status to penicillin; Z88.2 Allergy status to sulfonamides; Z88.8 Allergy status to other drugs, medicaments and biological substances; Z87.19 Personal history of other diseases of the digestive system; Z91.81 History of falling; Z98.890 Other specified postprocedural states; Z87.891 Personal history of nicotine dependence
CPT/HCPCS: 64555; C1778

== ENCOUNTER → 2023-02-17 12:44 | Outpatient (BNV) | payer MEDICARE, SELFPAY | PROVIDERS: PCP Internal Medicine; Visit Provider Internal Medicine | DX: M25.562 Pain in left knee (principal) | CPT/HCPCS: 64555 ==

== ENCOUNTER 2023-02-22 10:27 | Outpatient (REF) | payer MEDICARE, SELFPAY ==
[2023-02-22 13:14] LABS: MANUAL DIFF FLAG NO
[2023-02-22 13:18] LABS: Basophils Percent Auto 0.9 % (0-2); Eosinophils Absolute Auto 0.1 X10*3/uL (0.0-0.4); Eosinophils Percent Auto 1.8 % (0-4); Hemoglobin 9.1 g/dl (12.0-16.0); Imm Gran Abs Auto 0.01 X10*3/uL (0.00-0.03); Imm Gran Pct Auto 0.2 % (0.0-0.4); Lymphocytes Absolute Auto 1.1 X10*3/uL (1.2-4.9); Mean Corpuscular HGB Conc 29.4 g/dl (31.0-35.0); Mean Corpuscular Hemoglobin 23.8 pg (27.0-33.0); Mean Corpuscular Volume 80.9 fL (80.0-98.0); Mean Platelet Volume 10.3 fL (9.4-12.3); Monocytes Absolute Auto 0.4 X10*3/uL (0.1-1.2); Monocytes Percent Auto 9.6 % (2-11); Neutrophils Absolute Auto 2.8 x10*3/uL (2.0-8.3); Neutrophils Percent Auto 62.5 % (45-73); Platelet Count 433 X10*3/uL (160-400); Red Blood Count 3.83 X10*6/uL (4.20-5.50); Red Cell Distribution Width 16.3 % (11.0-16.0); White Blood Count 4.5 X10*3/uL (4.8-10.8)
[2023-02-22 13:44] LABS: Alanine Aminotransferase 8 U/L (0-31); Albumin Level 3.5 g/dL (3.5-5.0); Alkaline Phosphatase 112 U/L (39-117); Anion Gap 16 (12-20); Aspartate Amino Transferase 18 U/L (5-31); Bilirubin Total 0.3 mg/dL (0.0-1.0); Blood Urea Nitrogen 17 mg/dL (9-16); Calcium 9.7 mg/dL (8.4-10.2); Carbon Dioxide 25 mmol/L (22-29); Chloride 102 mmol/L (96-108); Estimated Glomerular Filt Rate 52; Glucose Random 101 mg/dL (60-115); Iron 25 mcg/dL (30-160); Percent Iron Saturation 13 % (15-50); Potassium 3.9 mmol/L (3.3-5.1); Sodium 139 mmol/L (135-145); Total Iron Binding Capacity 197 mcg/dL (228-428); Unsaturated Iron Binding 172 ug/dL
[2023-02-22 14:02] LABS: Ferritin 122 ng/mL (10-250)
== END 2023-02-22 10:28 | disposition home or self-care (01) ==
LOC: HO.MANLDS 10:27
PROVIDERS: Visit Provider Internal Medicine
DX: D50.9 Iron deficiency anemia, unspecified (principal)
CPT/HCPCS: 36415; 80053; 82728; 83540; 85025

== ENCOUNTER 2023-02-26 08:08 | Outpatient (AMB) | payer MEDICARE, SELFPAY ==
[2023-02-26 08:31] VITALS: BP 186/78; PULSE 81; RESP 16; O2SAT 98; BMI 23.8
--- NOTE | 2023-02-26 08:31 | MHC.OFFVIS ---
Intake Vital Signs 02/26/23 08:31 Height 5 ft 5 in Weight 143 lb BMI 23.8 BP 186/78 H Blood Pressure Location Lt brachial Position Sitting Respiration 16 Pulse 81 Pulse Source Pulse Oximeter Pulse Oximetry (%) 98 Oxygen Delivery Method Room Air Intake Visit Reasons: s/p Left side Sprint / LVM Allergies sulfamethoxazole [From Bactrim] Allergy (Severe, Verified 02/26/23 08:30) rash/itching trimethoprim [From Bactrim] Allergy (Severe, Verified 02/26/23 08:30) rash/itching Penicillins Allergy (Mild, Verified 02/26/23 08:30) RASH pregabalin [From Lyrica] Allergy (Mild, Verified 02/26/23 08:30) Rash Nrpfdye-IKZ-VhY Reductase Inhibitor [Statins: Hmg-Coa Reductase Inhibito] Allergy (Mild, Verified 02/26/23 08:30) RASH levofloxacin [From LEVAQUIN] Allergy (Unknown, Verified 02/26/23 08:30) RED RASH gabapentin Allergy (Verified 02/26/23 08:30) Unknown HPI HPI Comments History of Present Illness Details Renita is a very pleasant 87 year old female who presented to the office today, accompanied by her grandson, for follow up temporary saphenous nerve stimulator placement 02/17/23. Patient tolerated the procedure well, she reports improvement in pain, function and mobility since the procedure. Amy states that she has been walking better, is not favoring that side and she is more steady on her feet. Renita also reports that her right knee has been feeling less pain since the procedure which she attributes to improved body mechanics now that the left knee pain has improved. The device setting remains at 50, she has not needed to increase but they are confident in the use of the device and will increase as needed. Procedures: 02/17/2023: temporary saphenous nerve stimulator placement, left: improvement in pain, function and mobility. Prior: 87-year-old female who presents today to the office for a new patient evaluation of the presence of bilateral artificial knee joints. The patient has a history of bilateral TKAs performed by Dr. Greer. She had her right knee replaced in 2016. The patient was referred by Dr. Rubio. The patient reports bilateral knee pain (L>R). She describes her pain as an ache in her bilateral knees. She rates her pain at 7 to 10 out of 10 in intensity that has progressively worsened over the years and is worse in the morning when it is rated at 7 out of 10 in the late evening it is about 5 out of 10. She has pain with daily activity, worse with standing from a seated position or beginning to walk, along with stiffness. She has some bruising on her left medial knee from the recent fall. She does not walk with an assistive device and is trying to avoid doing so. She is currently taking Tylenol. Her pain is worse during humid climate. She recently had a GI bleed treated on 12/14/22 and was told to avoid NSAIDs or aspirin. She has tried pregabalin in the past and not tolerated it well. The patient has not tried physical therapy in the past due to her recent surgical history. She has been performing gentle stretching exercises at home. She had cysts removed from her ovaries in 04/2022. She does not want to consider any more surgeries at this time. [facility] Medical History Cataracts, bilateral Cholecystectomy planned Diverticulitis FH: total knee replacement Hx of breast cancer Iron deficiency anemia Migraine Surgical History Cataract H/O colonoscopy H/O total knee replacement History of colostomy reversal Family History Sister Breast cancer Diabetes Mother Diabetes Social History Household Members: Family and Children Household Members Other:: 3 Housing: House Are you a primary career professional to a significant other at home: No Do you presently have visiting nurse or other home services: No Alcohol intake: never Patient Tobacco Use Status: Former Tobacco user service: No Current occupational status: retired Review of Systems Const All systems reviewed & are unremarkable except as noted in HPI and below Physical Exam Vital Signs: Last Vital Signs Pulse 81 02/26/23 08:31 Resp 16 02/26/23 08:31 BP 186/78 H 02/26/23 08:31 Pulse Ox 98 02/26/23 08:31 Oxygen Delivery Method Room Air 02/26/23 08:31 BMI result Body Mass Index 23.8 General: awake, alert, oriented. Answers questions appropriately. Fully engaged in examination. Skin: Sprint insertion site dry, clean, without redness, swelling, bruising or drainage. HEENT: Normocephalic. Hearing intact. Cardiac: External chest normal in appearance. Respiratory: No cough, audible wheezing or stridor. Abdomen: without gross distension. MS: No obvious swelling or deformities. Able to transition from sit to stand unassisted. Ambulates with bilaterally normal heel strike and toe off Neurological: Oriented to person, place, time and situation. Thought process intact. No gait abnormalities appreciated. Psychiatric: Appropriate mood and affect. Good judgment and insight. Assessment & Plan Assessment & Plan (1) Chronic knee pain after total replacement of both knee joints: Code(s): M25.561 - Pain in right knee; M25.562 - Pain in left knee; G89.28 - Other chronic postprocedural pain; Z96.653 - Presence of artificial knee joint, bilateral Plan Renita presented to the office today, accompanied by her grandson for 1 week follow up left temporary saphenous nerve stimulator placement. Patient tolerated procedure well, reports improvement in pain, function and mobility. Sprint dressing change: Existing dressing removed, Area cleansed with chloraprep. Site dry, clean without redness, swelling, warmth, bruising or drainage. Lead secure device removed. Area cleansed again with chloraprep, once dry skin barrier protectant wipe applied. New lead secure device applied, tegaderm applied. Patient tolerated procedure well. Grandson instructed on dressing change as he will be performing at home. He verbalized understanding, all questions were answered. Patient would like to proceed with right temporary saphenous nerve stimulator placement. Follow up in the office as planned. Coding Level of Care Code Est Pt Level 3 (40265) Diagnoses Chronic knee pain after total replacement of both knee joints M25.561; M25.562; G89.28; Z96.653
== END 2023-02-26 08:35 | disposition home or self-care (01) ==
PROVIDERS: PCP Internal Medicine; Visit Provider Registered Nurse Emergency
DX: G89.28 Other chronic postprocedural pain (principal); M25.561 Pain in right knee; M25.562 Pain in left knee; Z96.653 Presence of artificial knee joint, bilateral
CPT/HCPCS: 99024

== ENCOUNTER → 2023-02-26 08:08 | Outpatient (BNVA) | payer MEDICARE, SELFPAY | PROVIDERS: PCP Internal Medicine; Visit Provider Registered Nurse Emergency | DX: M25.561 Pain in right knee (principal); M25.562 Pain in left knee; G89.28 Other chronic postprocedural pain; Z96.653 Presence of artificial knee joint, bilateral | CPT/HCPCS: 99212 ==

== ENCOUNTER 2023-03-15 09:33 | Outpatient (REF) | payer MEDICARE, SELFPAY ==
[2023-03-15 10:34] LABS: MANUAL DIFF FLAG NO
[2023-03-15 10:50] LABS: Basophils Percent Auto 0.9 % (0-2); Eosinophils Absolute Auto 0.1 X10*3/uL (0.0-0.4); Eosinophils Percent Auto 2.3 % (0-4); Hematocrit 28.1 % (37.0-47.0); Hemoglobin 8.1 g/dl (12.0-16.0); Imm Gran Abs Auto 0.01 X10*3/uL (0.00-0.03); Imm Gran Pct Auto 0.2 % (0.0-0.4); Lymphocytes Absolute Auto 1.1 X10*3/uL (1.2-4.9); Mean Corpuscular HGB Conc 28.8 g/dl (31.0-35.0); Mean Corpuscular Hemoglobin 23.3 pg (27.0-33.0); Mean Corpuscular Volume 80.7 fL (80.0-98.0); Mean Platelet Volume 10.4 fL (9.4-12.3); Monocytes Absolute Auto 0.4 X10*3/uL (0.1-1.2); Monocytes Percent Auto 8.4 % (2-11); Neutrophils Absolute Auto 2.7 x10*3/uL (2.0-8.3); Neutrophils Percent Auto 62.2 % (45-73); Platelet Count 375 X10*3/uL (160-400); Red Blood Count 3.48 X10*6/uL (4.20-5.50); White Blood Count 4.3 X10*3/uL (4.8-10.8)
[2023-03-15 11:21] LABS: Iron 13 mcg/dL (30-160); Percent Iron Saturation 7 % (15-50); Total Iron Binding Capacity 188 mcg/dL (228-428); Unsaturated Iron Binding 175 ug/dL
[2023-03-15 11:39] LABS: Ferritin 105 ng/mL (10-250)
== END 2023-03-15 09:34 | disposition home or self-care (01) ==
LOC: HO.10HDL 09:33
PROVIDERS: Visit Provider Internal Medicine
DX: D50.9 Iron deficiency anemia, unspecified (principal)
CPT/HCPCS: 36415; 82728; 83540; 85025

== ENCOUNTER 2023-04-05 08:06 | Outpatient (AMB) | payer MEDICARE, SELFPAY ==
--- NOTE | 2023-04-05 08:08 | A.OFFVIS_ITS ---
Intake Vital Signs 04/05/23 08:10 Height 5 ft 5 in Weight 140 lb BMI 23.3 Blood Pressure Location Lt brachial Position Sitting Respiration 12 Pulse 118 H Pulse Source Pulse Oximeter Pulse Oximetry (%) 98 Oxygen Delivery Method Room Air Intake Visit Reasons: Left side Sprint removal/Confirmed Allergies sulfamethoxazole [From Bactrim] Allergy (Severe, Verified 04/05/23 08:11) rash/itching trimethoprim [From Bactrim] Allergy (Severe, Verified 04/05/23 08:11) rash/itching Penicillins Allergy (Mild, Verified 04/05/23 08:11) RASH pregabalin [From Lyrica] Allergy (Mild, Verified 04/05/23 08:11) Rash Cxxwqmf-LTP-KqO Reductase Inhibitor [Statins: Hmg-Coa Reductase Inhibito] Allergy (Mild, Verified 04/05/23 08:11) RASH levofloxacin [From LEVAQUIN] Allergy (Unknown, Verified 04/05/23 08:11) RED RASH gabapentin Allergy (Verified 04/05/23 08:11) Unknown Medication List - Last Reconciled 04/05/23 by Elissa Patel LPN acetaminophen (Tylenol Extra Strength) 1,000 mg PO Q6H PRN ferrous sulfate (iron) 325 mg PO DAILY fluoxetine 1 cap PO DAILY latanoprost 0.005% 1 drp ophthalmic (eye) BEDTIME mirabegron ER (Myrbetriq) 25 mg PO DAILY multivitamin 1 tab PO DAILY omeprazole 20 mg PO BID@0630,1630 sucralfate 1 g (10 mL) PO QIDACHS sumatriptan succinate 1 tab PO DIRECTED PRN HPI Left side Sprint removal/Confirmed HPI Details 87-year-old female who presents today to the office for a left side sprint removal. The patient reports 80% relief following the procedure. She reports significant pain relief on the left side from the procedure.. She reports an aching sensation in her right leg at night. She takes two tablets of Tylenol for pain management. She also reports stiffness in her left leg in the morning. She has a scheduled appointment for the right side on 04/07/2023. She has a trip planned to [place] in May 2023. Past Procedures: 02/17/2023: Peripheral Nerve Stimulation Temporary Lead Placement, Ultrasound- Guided, Saphenous Nerve, Left: 80% relief. [facility] Medical History Cataracts, bilateral Cholecystectomy planned Diverticulitis FH: total knee replacement Hx of breast cancer Iron deficiency anemia Migraine Surgical History Cataract H/O colonoscopy H/O total knee replacement History of colostomy reversal Family History Sister Breast cancer Diabetes Mother Diabetes Social History Household Members: Family and Children Household Members Other:: 3 Housing: House Are you a primary healthcare social worker to a significant other at home: No Do you presently have visiting nurse or other home services: No Alcohol intake: never Comment: Pt low fall risk Patient Tobacco Use Status: Former Tobacco user service: No Current occupational status: retired Review of Systems Const All systems reviewed & are unremarkable except as noted in HPI and below Physical Exam Vital Signs: Last Vital Signs Pulse 118 H 04/05/23 08:10 Resp 12 04/05/23 08:10 Pulse Ox 98 04/05/23 08:10 Oxygen Delivery Method Room Air 04/05/23 08:10 BMI result Body Mass Index 23.3 General: Appears afebrile. Alert and oriented. Mood and affect appropriate. Follows and participates in conversation appropriately. Respiratory effort is unlabored. Able to transition from sit to stand unassisted. Ambulates with bilaterally normal heel strike and toe off. Lead removed with tip intact. Results Reviewed Results Reviewed: No imaging is available for review. Assessment & Plan Assessment & Plan (1) Chronic knee pain after total replacement of both knee joints: Code(s): M25.561 - Pain in right knee; M25.562 - Pain in left knee; G89.28 - Other chronic postprocedural pain; Z96.653 - Presence of artificial knee joint, bilateral (2) Bilateral knee pain: Code(s): M25.561 - Pain in right knee; M25.562 - Pain in left knee Plan Excellent therapeutic response on the left side. The patient will follow-up on 04/07/2023 for a right sided PNS placement as scheduled. Scribed for Dr. Brown by Oskar Landry, biomedical engineering supervisor, on 04/05/2023. I, Dr. Brown, have personally reviewed and agree with the information entered by the scribe. Coding Level of Care Code Est Pt Level 3 (83876) Diagnoses Chronic knee pain after total replacement of both knee joints M25.561; M25.562; G89.28; Z96.653 Bilateral knee pain M25.561; M25.562
[2023-04-05 08:10] VITALS: PULSE 118; RESP 12; O2SAT 98; BMI 23.3
== END 2023-04-05 08:34 | disposition home or self-care (01) ==
PROVIDERS: PCP Internal Medicine; Visit Provider Internal Medicine
DX: M25.561 Pain in right knee (principal); M25.562 Pain in left knee; G89.28 Other chronic postprocedural pain; Z96.653 Presence of artificial knee joint, bilateral
CPT/HCPCS: 99213

== ENCOUNTER 2023-04-05 18:43 | Inpatient (IN) | payer MEDICARE, SELFPAY ==
[2023-04-05 18:57] VITALS: BP 122/50; PULSE 92; RESP 18; TEMP 36.6; O2SAT 97; BMI 23.3
[2023-04-05 20:36] VITALS: BP 153/68; PULSE 83; RESP 81; TEMP 36.6; O2SAT 97
--- NOTE | 2023-04-05 20:43 | ECG_ITS ---
Test Reason : weakness Blood Pressure : / mmHG Vent. Rate : 077 BPM Atrial Rate : 077 BPM P-R Int : 166 ms QRS Dur : 076 ms QT Int : 398 ms P-R-T Axes : 010 -03 014 degrees QTc Int : 450 ms Normal sinus rhythm with sinus arrhythmia Minimal voltage criteria for LVH, may be normal variant ( R in aVL ) Borderline ECG When compared with ECG of 14-DEC-2022 19:39, Aberrant conduction is no longer Present Referred By: Trinity Doty Electronically Signed By:Richard Velarde
[2023-04-05 21:08] LABS: MANUAL DIFF FLAG NO
[2023-04-05 21:10] LABS: Basophils Absolute Auto 0.1 X10*3/uL (0.0-0.2); Basophils Percent Auto 0.8 % (0-2); Eosinophils Absolute Auto 0.1 X10*3/uL (0.0-0.4); Eosinophils Percent Auto 1.6 % (0-4); Hematocrit 29.1 % (37.0-47.0); Hemoglobin 8.8 g/dl (12.0-16.0); Imm Gran Abs Auto 0.02 X10*3/uL (0.00-0.03); Imm Gran Pct Auto 0.3 % (0.0-0.4); Lymphocytes Absolute Auto 1.6 X10*3/uL (1.2-4.9); Lymphocytes Percent Auto 24.2 % (20-40); Mean Corpuscular HGB Conc 30.2 g/dl (31.0-35.0); Mean Corpuscular Hemoglobin 23.8 pg (27.0-33.0); Mean Corpuscular Volume 78.9 fL (80.0-98.0); Mean Platelet Volume 9.9 fL (9.4-12.3); Monocytes Absolute Auto 0.5 X10*3/uL (0.1-1.2); Neutrophils Absolute Auto 4.2 x10*3/uL (2.0-8.3); Neutrophils Percent Auto 65.1 % (45-73); Platelet Count 358 X10*3/uL (160-400); Red Blood Count 3.69 X10*6/uL (4.20-5.50); Red Cell Distribution Width 16.7 % (11.0-16.0); White Blood Count 6.4 X10*3/uL (4.8-10.8)
--- NOTE | 2023-04-05 21:10 | ED_ITS ---
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 She comes in tonight with c/o 3 days fatigue, darker stools, dizziness and just feeling very poorly MD Complaint: generalized weakness Onset (ago): day(s) (few) Duration: constant Location: generalized Migration: none Severity: moderate Relieving factors: rest Exacerbating factors: movement and exertion Context: history of similar Associated symptoms: dark stools Related Data Home Medications Medication Instructions Recorded Confirmed fluoxetine 20 mg capsule 1 cap PO DAILY 04/04/20 04/05/23 latanoprost 0.005 % eye drops 1 drp ophthalmic (eye) BEDTIME 04/04/20 04/05/23 sumatriptan succinate 100 mg tablet 1 tab PO DIRECTED PRN Migraine 04/04/20 04/05/23 Headache ferrous sulfate 325 mg (65 mg 325 mg PO DAILY 07/02/20 04/05/23 iron) tablet (iron) acetaminophen 500 mg tablet 1,000 mg PO Q6H PRN pain or fever 12/12/22 04/05/23 (Tylenol Extra Strength) multivitamin 1 tab PO DAILY 12/12/22 04/05/23 mirabegron 25 mg tablet,extended 25 mg PO DAILY 01/11/23 04/05/23 release 24 hr (Myrbetriq) Previous Rx's Medication Instructions Recorded omeprazole 20 mg capsule,delayed 20 mg PO BID@0630,1630 #60 caps 12/17/22 release sucralfate 100 mg/mL oral 1 g (10 mL) PO QIDACHS #420 mL 12/17/22 suspension Allergies Allergy/AdvReac Type Severity Reaction Status Date / Time sulfamethoxazole Allergy Severe rash/itchin Verified 04/05/23 18:56 [From Bactrim] g trimethoprim [From Bactrim] Allergy Severe rash/itchin Verified 04/05/23 18:56 g Penicillins Allergy Mild RASH Verified 04/05/23 18:56 pregabalin [From Lyrica] Allergy Mild Rash Verified 04/05/23 18:56 Gtoubyn-EUR-MvE Reductase Allergy Mild RASH Verified 04/05/23 18:56 Inhibitor [Statins: Hmg-Coa Reductase Inhibito] levofloxacin [From LEVAQUIN] Allergy Unknown RED RASH Verified 04/05/23 18:56 gabapentin Allergy Unknown Verified 04/05/23 18:56 Review of Systems 2 Review of Systems: Constitutional : No Fever, No Chills, No Fatigue ENT/Mouth : No sore throat, No Rhinorrhea Eyes: No Eye Pain, No Swelling, No Redness Cardiovascular : No Chest Pain, No SOB, pos Dyspnea on Exertion Respiratory : No Cough, No Sputum Gastrointestinal : No Nausea, No Vomiting, No Diarrhea, No abdominal Pain, pos melena Genitourinary : No Dysuria, No Urinary Frequency, No Hematuria, Musculoskeletal : No joint pain, No Myalgias, No Joint Swelling Skin : No Skin Lesions, No rash Neuro : pos Weakness, No Numbness, pos Dizziness, no Headache Psych : No Anxiety/Panic, No Depression Heme/Lymph: No Bruising, No Bleeding,No Lymphadenopathy Endocrine : No Polyuria, No Polydipsia All other systems reviewed and are negative PMFSH Past Medical History Attestation statement: The following information was validated with the patient. Source: old records reviewed Medical History Cataracts, bilateral Cholecystectomy planned Diverticulitis FH: total knee replacement Hx of breast cancer Iron deficiency anemia Migraine Surgical History History of colostomy reversal H/O total knee replacement H/O colonoscopy Cataract Family History Family History Sister Breast cancer Diabetes Mother Diabetes Social History Social History Household Members: Family and Children Household Members Other:: 3 Housing: House Are you a primary residential care facility manager to a significant other at home: No Do you presently have visiting nurse or other home services: No Alcohol intake: never Comment: Pt low fall risk Patient Tobacco Use Status: Former Tobacco user Advance Directives: No Advance Directives Information Provided: Yes service: No Current occupational status: retired Physical Exam 2 Vital Signs: Vital Signs: Last Vital Signs Temp 97.9 F 04/05/23 20:36 Pulse 83 04/05/23 20:36 Resp 81 H 04/05/23 20:36 BP 153/68 H 04/05/23 20:36 Pulse Ox 97 04/05/23 20:36 O2 Del Method Room Air 04/05/23 20:36 BMI result Body Mass Index 23.3 Appearance: Alert. Oriented X3. No acute distress. Eyes: Pupils equal, round and reactive to light. ENT: Pharynx normal. Neck: Normal inspection. Neck supple. CVS: Normal heart rate and rhythm. Pulses normal. Respiratory: No respiratory distress. Breath sounds normal. Abdomen: Soft and nontender. Rectal: black stool Skin: Skin warm and dry. pale skin color. Normal skin turgor. Extremities: No lower extremity edema. No calf ttp Neuro: Oriented X 3. No motor deficit. No sensory deficit. Course Course Course Narrative: deon will possibly scope when she is admitted Medications Administered Generic Name Dose Route Start Last Admin Trade Name Freq PRN Reason Stop Dose Admin Sodium Chloride 500 mls @ 500 mls/hr 04/05/23 21:30 04/05/23 21:36 Ns IV 04/05/23 22:29 500 mls/hr .Q1H MANJIT Administration Discontinued Medications Generic Name Dose Route Start Last Admin Trade Name Freq PRN Reason Stop Dose Admin Pantoprazole Sodium 40 mg 04/05/23 21:19 04/05/23 21:36 Pantoprazole Sodium 40 Mg/10 Ml Vial IVPUSH 04/05/23 21:20 40 mg ONCE ONE Administration Medical Decision Making Medical Decision Making MDM Narrative: 87 yo female with PMH of breast cancer s/p lumpectomy and chemo radiation, Fe deficiency anemia, mood disorder, GERD, migraines, pelvic mass s/p BSO, admitted Nov 2022 with anemia Hgb 6.1 had 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 Just had transfusion this week per Dr. allred - has hx of chronic bleeding AVM. No CP/SOB. VS stable. Differential Diagnosis Differential Diagnoses: The differential diagnosis associated with the presentation includes UGIB Admission/Observation Consideration of admission/observation: Escalation of care including admission/observation considered given MEGA will admit - Dr. Allred is aware will scope her while admitted Consult Healthcare Provider Management of the patient was discussed with: Hospitalist (will admit) and Sports Athletic Trainer Lab Data MDM Lab Attestation statement: I reviewed the patient's lab results. 04/05/23 21:04 04/05/23 21:04 Labs: Lab Results 04/05/23 04/05/23 Range/Units 21:04 21:19 WBC 6.4 (4.8-10.8) X10*3/uL RBC 3.69 L (4.20-5.50) X10*6/uL Hgb 8.8 L (12.0-16.0) g/dl Hct 29.1 L (37.0-47.0) % MCV 78.9 L (80.0-98.0) fL MCH 23.8 L (27.0-33.0) pg MCHC 30.2 L (31.0-35.0) g/dl RDW 16.7 H (11.0-16.0) % Plt Count 358 (160-400) X10*3/uL MPV 9.9 (9.4-12.3) fL Immature Gran % (Auto) 0.3 (0.0-0.4) % Neut % (Auto) 65.1 (45-73) % Lymph % (Auto) 24.2 (20-40) % Falls % (Auto) 8.0 (2-11) % Eos % (Auto) 1.6 (0-4) % Baso % (Auto) 0.8 (0-2) % Lymph # (Auto) 1.6 (1.2-4.9) X10*3/uL Falls # (Auto) 0.5 (0.1-1.2) X10*3/uL Eos # (Auto) 0.1 (0.0-0.4) X10*3/uL Baso # (Auto) 0.1 (0.0-0.2) X10*3/uL Abs Immat Gran (auto) 0.02 (0.00-0.03) X10*3/uL Absolute Neuts (auto) 4.2 (2.0-8.3) x10*3/uL Absolute Nucleated RBC 0.000 (0.0-0.012) X10*3/uL Nucleated RBC % (auto) 0.0 (0.0-0.2) /100WBC PT 13.2 (11.1-13.3) SEC INR 1.1 (0.9-1.1) Sodium 138 (135-145) mmol/L Potassium 4.5 (3.3-5.1) mmol/L Chloride 104 (96-108) mmol/L Carbon Dioxide 23 (22-29) mmol/L Anion Gap 16 (12-20) BUN 26 H (9-16) mg/dL Creatinine 1.97 H (0.5-1.4) mg/dL Estim Creat Clear Calc 18.0 Estimated GFR 24 Random Glucose 93 (60-115) mg/dL Lactic Acid 0.9 (0.5-2.0) mmol/L Calcium 9.5 (8.4-10.2) mg/dL Magnesium 2.0 (1.6-2.6) mg/dL Total Bilirubin 0.3 (0.0-1.0) mg/dL Direct Bilirubin 0.1 (0.0-0.5) mg/dL AST 17 (5-31) U/L ALT 10 (0-31) U/L Alkaline Phosphatase 106 (39-117) U/L Troponin I High Sens 3.7 (<3.5-17.0) ng/L Total Protein 7.8 (6.5-8.0) g/dL Albumin 3.3 L (3.5-5.0) g/dL Lipase 14 (8-78) U/L Stool Occult Blood POSITIVE (NEGATIVE) Independent Interpretation I performed an independent interpretation of an: EKG Interpretation: Rate: 77 Rhythm: NSR [place]: left Normal P waves. Normal ANATOLY. Normal QRS complex. ST T wave : normal no SHWETA, inverted lead III qTC: normal prior studies: no acute ischemia The study has been interpreted contemporaneously by me. . Independent Historian Clinical information obtained from an independent historian. History obtained from or confirmed by: Other External Record Review External record reviewed: Inpatient record Discharge Plan Discharge Clinical Impression: Chronic upper gastrointestinal bleeding, MEGA (acute kidney injury) Patient Disposition: Admitted As Inpatient Prescriptions: No Action latanoprost 0.005 % drops 1 drp ophthalmic (eye) BEDTIME sumatriptan succinate 100 mg tablet 1 tab PO DIRECTED PRN (Reason: Migraine Headache) Rx Instructions: MRX1 after 2 hours fluoxetine 20 mg capsule 1 cap PO DAILY ferrous sulfate [iron] 325 mg (65 mg iron) Tablet 325 mg PO DAILY multivitamin Tablet 1 tab PO DAILY acetaminophen [Tylenol Extra Strength] 500 mg tablet 1,000 mg PO Q6H PRN (Reason: pain or fever) sucralfate 100 mg/mL Suspension 1 g PO QIDACHS Qty: 420 0RF omeprazole 20 mg Capsule,Delayed Release(Dr/Ec) 20 mg PO BID@0630,1630 Qty: 60 0RF Myrbetriq 25 mg tablet extended release 24 hr 25 mg PO DAILY
[2023-04-05 21:14] LABS: INTERNATIONAL NORM RATIO 1.1 (0.9-1.1); Prothrombin Time 13.2 SEC (11.1-13.3)
[2023-04-05 21:19] LABS: Lactic Acid 0.9 mmol/L (0.5-2.0)
[2023-04-05 21:25] LABS: Alanine Aminotransferase 10 U/L (0-31); Albumin Level 3.3 g/dL (3.5-5.0); Alkaline Phosphatase 106 U/L (39-117); Anion Gap 16 (12-20); Aspartate Amino Transferase 17 U/L (5-31); Bilirubin Direct 0.1 mg/dL (0.0-0.5); Bilirubin Total 0.3 mg/dL (0.0-1.0); Blood Urea Nitrogen 26 mg/dL (9-16); Calcium 9.5 mg/dL (8.4-10.2); Carbon Dioxide 23 mmol/L (22-29); Chloride 104 mmol/L (96-108); Estimated Glomerular Filt Rate 24; Glucose Random 93 mg/dL (60-115); Lipase 14 U/L (8-78); Potassium 4.5 mmol/L (3.3-5.1); Sodium 138 mmol/L (135-145); Total Protein 7.8 g/dL (6.5-8.0)
--- NOTE | 2023-04-05 21:29 | PC.NURSE ---
call Ulysses sherwood @ [phone], with any questions/concerns.
[2023-04-05 21:32] LABS: Troponin-I High Sensitivity 3.7 ng/L (<3.5-17.0)
[2023-04-05] MEDS: Pantoprazole Sodium 40 MG/10 ML VIAL IVPUSH (21:36)
[2023-04-05] MEDS: 0.9 % Sodium Chloride 500 ML IV (21:36)
[2023-04-05 21:43] LABS: OBS Int Ctl Valid YES; OBS1 POSITIVE (NEGATIVE)
[2023-04-05 22:45] VITALS: BP 150/74; PULSE 77; RESP 18; TEMP 36.7; O2SAT 100
--- NOTE | 2023-04-05 22:47 | PHA.MEDREC ---
Pharmacy Consult ? Medication Reconciliation Pharmacy has completed the medication reconciliation. Patient reported medications. Kesha Courtney, MariluD
--- NOTE | 2023-04-05 22:49 | MHC.SHP ---
Pre-Procedural Eval Section A Date of Service: 04/07/23 The patient is an INPATIENT: Yes The History & Physical has been completed within 30 days and I have reviewed it.: Yes Section B Chief Complaint: weakness, dark stool, hx of internal bleed Allergies: Allergies Allergy/AdvReac Type Severity Reaction Status Date / Time sulfamethoxazole Allergy Severe rash/itchin Verified 04/05/23 18:56 [From Bactrim] g trimethoprim [From Bactrim] Allergy Severe rash/itchin Verified 04/05/23 18:56 g Penicillins Allergy Mild RASH Verified 04/05/23 18:56 pregabalin [From Lyrica] Allergy Mild Rash Verified 04/05/23 18:56 Bmvqaye-FBV-NkA Reductase Allergy Mild RASH Verified 04/05/23 18:56 Inhibitor [Statins: Hmg-Coa Reductase Inhibito] levofloxacin [From LEVAQUIN] Allergy Unknown RED RASH Verified 04/05/23 18:56 gabapentin Allergy Unknown Verified 04/05/23 18:56 Plan I have reviewed the history and physical and performed a pertinent physical examination on my patient. No changes have occurred unless specified. Time Spent With Patient Time: Total time managing care of this patient today ____ minutes.
--- NOTE | 2023-04-05 22:50 | PM.EVENT ---
Event Note Date of Service: 04/05/23 Event Note: GI Consult-Full note dictated Imp: Presumed recurrent UGI bleed due to gastric Dieulafoy lesion, or possible angiodysplasia. Rec: Follow up Hgb, continue PPI, hold sucralfate, F/U renal function, transfuse if Hgb < 8.5. Regular diet for now and then NPO after MN on 04/07 for EGD on 04/07. Full consent obtained for this, including risks of bleeding and perforation. D/W patient in detail and she is comfortable with this plan. Please call if questions or problems. Thanks. Time Spent With Patient Time: Total time managing care of this patient today ____ minutes.
[2023-04-05] MEDS: 0.9 % Sodium Chloride 1,000 ML 100 ML IVCONT (23:08)
[2023-04-05 23:59] VITALS: BP 123/52; PULSE 78; RESP 14; TEMP 36.6; O2SAT 99
[2023-04-06] VITALS (9 sets, daily range): BP systolic 145–179; BP diastolic 71–90; PULSE 62–85; RESP 14–18; TEMP 36.6–37.3; O2SAT 94–100; BMI 23.4
[2023-04-06] MEDS: FLUoxetine HCl 20 MG CAPSULE PO ×2 (00:30→20:39)
--- NOTE | 2023-04-06 00:48 | CONS_ITS ---
DATE OF SERVICE: 04/05/2023 REASON FOR CONSULTATION: History of upper GI bleeding, melena, and anemia. HISTORY OF PRESENT ILLNESS: This has been obtained from the patient and the medical record. The patient is an 87-year-old female well known to me with a history of upper GI bleeding due to a presumed Dieulafoy lesion in the stomach. The patient had last been admitted for this in November 2022. At that time, she underwent upper endoscopy with the finding of a lesion in the proximal stomach that appeared consistent with either a Dieulafoy lesion or possible angiodysplasia. The lesion was treated with sclerotherapy with epinephrine and endoscopic clipping. Since that time, she had been treated with omeprazole and sucralfate and was doing well. She had also been on iron. However, recently, she began having some black and tarry stools, weakness, and a drop in hemoglobin that required a unit of blood as an outpatient on March 23. At that time, her hemoglobin was down to 8.0. She called today with more lightheadedness and weakness and was referred to the ER. In the ER, she actually had a hemoglobin of 8.8, which was increased from the 8.0 level before the transfusion, but she is also somewhat dehydrated with slightly elevated BUN and creatinine. She does describe an episode of some vomiting, but there was no obvious coffee-grounds emesis nor hematemesis. She has not noticed any hematochezia, but the stools have been darker and somewhat more frequent than her usual bowel movements on the iron supplements. She denies any abdominal pain. In the ER, she has been hemodynamically stable. She does not use any NSAIDs, aspirin, tobacco, nor alcohol. She denies any significant heartburn, dysphagia, nor anorexia. She has not noticed any jaundice nor fevers. MEDICATIONS: At home included omeprazole 20 mg b.i.d., fluoxetine, Tylenol, iron, sucralfate, Myrbetriq. PAST MEDICAL HISTORY: History of anemia. In 2018, she underwent upper endoscopy, which actually was unremarkable including duodenal biopsies. Colonoscopy was normal. She had a small bowel video capsule study in 2019 that was negative. She did require some transfusions in 2019 along with iron infusions. In 2019, she underwent upper endoscopy with the finding of a gastric lesion consistent with possible Dieulafoy lesion and this was also treated with endoscopic clipping. A colonoscopy at that time revealed only small tubular adenomas. A colonoscopy in 2021 revealed 1 tubulovillous adenoma. She was having diarrhea at that time and there was no evidence of any inflammatory bowel disease nor microscopic colitis on biopsies. Hospitalization in November 2022 for significant anemia with a hemoglobin of 6. She underwent the above described endoscopy with the finding of the gastric lesion that was treated with endoscopic clipping and sclerotherapy with epinephrine. She has had a history of polymyalgia rheumatica. She has restless leg syndrome and migraines. She has history of right-sided breast cancer treated with lumpectomy, radiation, and chemo. She denies history of WI, diabetes, stroke, lung disease, nor any previously known renal disease. Aside from the breast cancer, other surgeries include bilateral cataracts, left knee replacement, cholecystectomy, diverticulitis with temporary colostomy in 2013, right knee replacement, partial hysterectomy with subsequent removal of both ovaries, and placement of a temporary nerve stimulator in her left leg for chronic knee pain in January 2023, which gave her good relief. She was actually scheduled for another temporary nerve stimulator for the other knee on April [address] Brown at [facility]. FAMILY HISTORY: Negative for GI malignancy. SOCIAL HISTORY: She is a retired [place] [employer]. She does not smoke nor use any significant amounts of alcohol. She lives with her family. REVIEW OF SYSTEMS: CONSTITUTIONAL: She has been feeling somewhat weaker and a little bit anorectic lately. CARDIAC: No chest pain. PULMONARY: No cough or hemoptysis. GI: As above. URINARY: She does have some urinary incontinence. There has been no hematuria. NEUROLOGIC: No seizures. She does have a history of migraines. PHYSICAL EXAMINATION: GENERAL: The patient is a pleasant, alert, pale female. SKIN: Warm and dry. Anicteric sclerae. NECK: Supple without lymphadenopathy. CARDIAC: Normal S1, S2. ABDOMEN: Soft, nondistended, nontender without organomegaly or mass. EXTREMITIES: Without edema. NEUROLOGIC: She is alert and oriented. LABORATORY DATA: White blood cell count 6.4, hemoglobin 8.8 compared to 8.1 on March 23. She did receive a unit of blood on March 23. Platelets 258,000. PT 13.2 with INR 1.1. Normal electrolytes. BUN 26, creatinine 1.97. On February 22, she had a BUN of 17 with creatinine 1.0. In February, her iron was 13 with iron saturation of 7% and a ferritin of 105. Total bilirubin 0.3, AST 17, ALT 10, alkaline phosphatase 106, albumin 3.3, lipase 14. Stool was Hemoccult positive today. IMPRESSION: Given the patient's clinical history, I suspect she is having recurrent bleeding from the known lesion in the proximal stomach consistent with either an angiodysplasia or Dieulafoy lesion. She does not appear to be having any significant active bleeding, but nonetheless I think she would benefit from repeat upper endoscopy given her recent need for transfusion and her previous history. She will be admitted from the ER for some IV hydration. She may very well be noted to have a drop in hemoglobin in relation to the hydration and may need another unit of blood before the endoscopy. We will potentially plan for an upper endoscopy on Wednesday, April 07. This will be done with monitored anesthesia care. Full consent was obtained for that, including risks of bleeding and perforation. If indeed she is found to have the same bleeding lesion and continues to have intermittent problems, then we might want to consider an Interventional Radiology consultation to see if they could consider an approach to embolize it. However, if it can be treated endoscopically and things remain stable, then we can hold off on that. In the meantime, she will continue her PPI and sucralfate. She can be maintained on a diet, but will be kept n.p.o. after midnight for the procedure on April 07. She will have followup laboratories in the morning and the following day as well. Thank you for the consultation. MD GATO Jones/AB / [id number] MTDJ Luis
[2023-04-06] MEDS: Acetaminophen 325 MG TABLET 650 MG PO (01:37)
[2023-04-06 05:07] LABS: Appearance Urine Clear; Color Urine Dark Yellow; Glucose Urine UA Negative (Negative); Leukocyte Esterase Urine Trace (Negative); Nitrite Urine Negative (Negative); PH 5.5 (5.0-9.0); UMIC TRIGGER UACC YES; Urine Blood Negative (Negative); Urine Ketones Trace mg/dL (Negative); Urine Protein Trace mg/dL (Neg-Trace)
[2023-04-06 05:08] LABS: Bacteria Urine None Seen (None Seen); Calcium Oxalate Crystals Urine Present; Hyaline Casts Urine >20 /LPF (0-2); RBC Urine 0-2 /HPF (0-2); Squamous Epithelial Cell Urine 0-2 /HPF (0-2); WBC Urine 0-5 /HPF (0-5)
--- NOTE | 2023-04-06 05:18 | MHC.EDTECH ---
late entry Patient came to overflow from the main emergency room at 0230 am ,vitals taken ,pt got settle in bed ,Patient sleep for awhile ,then woke up at 0400 watching television .
[2023-04-06 05:35] LABS: MANUAL DIFF FLAG NO
[2023-04-06] MEDS: Omeprazole 20 MG CAPSULE.DR PO ×2 (05:36→17:45)
[2023-04-06 05:37] LABS: Basophils Percent Auto 0.8 % (0-2); Eosinophils Absolute Auto 0.2 X10*3/uL (0.0-0.4); Eosinophils Percent Auto 4.5 % (0-4); Hematocrit 27.3 % (37.0-47.0); Hemoglobin 8.2 g/dl (12.0-16.0); Imm Gran Abs Auto 0.02 X10*3/uL (0.00-0.03); Imm Gran Pct Auto 0.4 % (0.0-0.4); Lymphocytes Absolute Auto 1.5 X10*3/uL (1.2-4.9); Lymphocytes Percent Auto 29.5 % (20-40); Mean Corpuscular Hemoglobin 23.8 pg (27.0-33.0); Mean Corpuscular Volume 79.4 fL (80.0-98.0); Mean Platelet Volume 10.1 fL (9.4-12.3); Monocytes Absolute Auto 0.5 X10*3/uL (0.1-1.2); Monocytes Percent Auto 9.4 % (2-11); Neutrophils Absolute Auto 2.8 x10*3/uL (2.0-8.3); Neutrophils Percent Auto 55.4 % (45-73); Platelet Count 293 X10*3/uL (160-400); Red Blood Count 3.44 X10*6/uL (4.20-5.50); Red Cell Distribution Width 16.9 % (11.0-16.0); White Blood Count 5.1 X10*3/uL (4.8-10.8)
[2023-04-06] MEDS: Dextrose 5 % and 0.45 % NaCl 1,000 ML 200 ML IVCONT (05:41)
[2023-04-06 05:52] LABS: Anion Gap 12 (12-20); Blood Urea Nitrogen 28 mg/dL (9-16); Carbon Dioxide 22 mmol/L (22-29); Chloride 109 mmol/L (96-108); Estimated Glomerular Filt Rate 27; Glucose Random 105 mg/dL (60-115); Magnesium 1.9 mg/dL (1.6-2.6); Sodium 139 mmol/L (135-145)
--- NOTE | 2023-04-06 06:01 | P.HPHOSP_ITS ---
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 Allred) for evaluation after she called him and reported having generalized weakness with easy fatigability and dizziness for the past 3 days.? She also reports poor oral tolerance stating stating that she vomited this morning when she tried to drink some water and was also unable to take soup this afternoon.? Her stools are black (though she is also on Iron).? She was transfused on 03/23 but given her present complains, he was concerned that she maybe dehydrated or had worsening anemia and so advised her to come in for evaluation.? She also been planned for an EGD and he wants to pursue it during this admission.? Initial lab work done revealed a fairly stable hemoglobin at 8.8 but now with some mild renal insufficiency with a serum creatinine of 1.9.? She was started on IV fluids following which admission was requested. Of note, he had planned to have an EGD done and this may be pursued during this admission. Review of Systems 2 Review of Systems: Yes all other systems are reviewed and are negative [facility] Medical History Migraine Acute anemia Cataracts, bilateral Iron deficiency anemia FH: total knee replacement Cholecystectomy planned Diverticulitis Hx of breast cancer Iron deficiency anemia Functional capacity: independent ambulation Patient : No Family History Sister Breast cancer Diabetes Mother Diabetes Surgical History History of colostomy reversal H/O total knee replacement H/O colonoscopy Cataract Social History Household Members: Family and Children Household Members Other:: 3 Housing: House Are you a primary dog day care attendant to a significant other at home: No Do you presently have visiting nurse or other home services: No Alcohol intake: never Comment: Pt low fall risk Patient Tobacco Use Status: Former Tobacco user Advance Directives: No Advance Directives Information Provided: Yes Nutrition Risks: Acute nausea or vomiting x1 week service: No Current occupational status: retired Meds Allergies Allergy/AdvReac Type Severity Reaction Status Date / Time sulfamethoxazole Allergy Severe rash/itchin Verified 04/05/23 18:56 [From Bactrim] g trimethoprim [From Bactrim] Allergy Severe rash/itchin Verified 04/05/23 18:56 g Penicillins Allergy Mild RASH Verified 04/05/23 18:56 pregabalin [From Lyrica] Allergy Mild Rash Verified 04/05/23 18:56 Thxctob-YTX-HzQ Reductase Allergy Mild RASH Verified 04/05/23 18:56 Inhibitor [Statins: Hmg-Coa Reductase Inhibito] levofloxacin [From LEVAQUIN] Allergy Unknown RED RASH Verified 04/05/23 18:56 gabapentin Allergy Unknown Verified 04/05/23 18:56 Home Medications Medication Instructions Recorded Confirmed Last Taken Type fluoxetine 20 mg capsule 1 cap PO BEDTIME 04/04/20 04/05/23 04/04/23 History latanoprost 0.005 % eye drops 1 drp ophthalmic (eye) BEDTIME 04/04/20 04/05/23 04/04/23 History sumatriptan succinate 100 mg tablet 1 tab PO DAILY MRX1 PRN Migraine 04/04/20 04/05/23 04/04/23 History Headache ferrous sulfate 325 mg (65 mg 325 mg PO BID 07/02/20 04/05/23 04/05/23 History iron) tablet (iron) multivitamin 1 tab PO BEDTIME 12/12/22 04/05/23 04/04/23 History mirabegron 25 mg tablet,extended 25 mg PO DAILY 01/11/23 04/05/23 04/05/23 History release 24 hr (Myrbetriq) Physical Exam 2 Vital Signs and Narrative: Vital Signs: Last Vital Signs Temp 98.0 F 04/06/23 02:30 Pulse 62 04/06/23 02:30 Resp 16 04/06/23 02:30 BP 164/71 H 04/06/23 02:30 Pulse Ox 95 04/06/23 02:30 O2 Del Method Room Air 04/06/23 02:30 BMI result Body Mass Index 23.3 General: Well nourished. Awake, alert and oriented x 4. No apparent distress Eyes: No pallor or jaundice. PERRLA, EOMI HENT: Moist oral mucus membranes. No oropharyngeal lesions. Neck: Supple. No cervical adenopathy. No JVD Cardiovascular: Regular rate and rhythm. Normal heart sounds. No murmurs, rubs or gallops. No JVD. No peripheral edema. Respiratory: Normal respiratory effort with no accessory muscle use. CTAB. , CTA bilaterally Gastrointestinal: Abdomen is soft, non-tender, non-distended. Normoactive bowel sounds. No hepatosplenomegaly Extremities: No edema. No calf tenderness. Good peripheral pulses Skin: Warm/Dry. No rashes. No mottling. Capillary refill is < 2 seconds Neurological: AAOx4. Intact speech & cognition. Normal gait & balance. CN II - XII grossly intact but not individually tested. No motor or sensory deficits Hematologic: No bleeding. No ecchymosis. No swollen or tender lymph nodes. Psychiatric: Cooperative. Appropriate mood and affect. Results Labs 04/06/23 05:25 04/06/23 05:25 Labs: Laboratory Results - last 24 hr 04/05/23 04/05/23 04/06/23 21:04 21:19 00:29 MCV 78.9 L MCH 23.8 L MCHC 30.2 L RDW 16.7 H Plt Count 358 MPV 9.9 Immature Gran % (Auto) 0.3 Neut % (Auto) 65.1 Lymph % (Auto) 24.2 Bucks % (Auto) 8.0 Eos % (Auto) 1.6 Baso % (Auto) 0.8 Lymph # (Auto) 1.6 Bucks # (Auto) 0.5 Eos # (Auto) 0.1 Baso # (Auto) 0.1 Abs Immat Gran (auto) 0.02 Absolute Neuts (auto) 4.2 Absolute Nucleated RBC 0.000 Nucleated RBC % (auto) 0.0 PT 13.2 INR 1.1 Anion Gap 16 Estim Creat Clear Calc 18.0 Estimated GFR 24 Random Glucose 93 Fasting Glucose Lactic Acid 0.9 Calcium 9.5 Magnesium 2.0 Total Bilirubin 0.3 Direct Bilirubin 0.1 AST 17 ALT 10 Alkaline Phosphatase 106 Total Creatine Kinase 33 Total Protein 7.8 Albumin 3.3 L Lipase 14 Urine Color Dark Yellow Urine Appearance Clear Urine pH 5.5 Ur Specific [place] 1.020 Urine Protein Trace Urine Glucose (UA) Negative Urine Ketones Trace Urine Blood Negative Urine Nitrite Negative Ur Leukocyte Esterase Trace H Urine RBC 0-2 Urine WBC 0-5 Ur Squamous Epith Cells 0-2 Calcium Oxalate Crystal Present Urine Bacteria None Seen Hyaline Casts >20 Stool Occult Blood POSITIVE Blood Type O Positive Antibody Screen POSITIVE Antibody Identification Anti-E Enhanced Crossmatch See Detail 04/06/23 04/06/23 04/06/23 05:25 05:25 05:25 MCV 79.4 L MCH 23.8 L MCHC 30.0 L RDW 16.9 H Plt Count 293 MPV 10.1 Immature Gran % (Auto) 0.4 Neut % (Auto) 55.4 Lymph % (Auto) 29.5 Bucks % (Auto) 9.4 Eos % (Auto) 4.5 H Baso % (Auto) 0.8 Lymph # (Auto) 1.5 Bucks # (Auto) 0.5 Eos # (Auto) 0.2 Baso # (Auto) 0.0 Abs Immat Gran (auto) 0.02 Absolute Neuts (auto) 2.8 Absolute Nucleated RBC 0.000 Nucleated RBC % (auto) 0.0 PT INR Anion Gap Cancelled 12 Estim Creat Clear Calc Cancelled 20.0 Estimated GFR Cancelled Random Glucose Fasting Glucose Lactic Acid Calcium Magnesium Total Bilirubin Direct Bilirubin AST ALT Alkaline Phosphatase Total Creatine Kinase Total Protein Albumin Lipase Urine Color Urine Appearance Urine pH Ur Specific [place] Urine Protein Urine Glucose (UA) Urine Ketones Urine Blood Urine Nitrite Ur Leukocyte Esterase Urine RBC Urine WBC Ur Squamous Epith Cells Calcium Oxalate Crystal Urine Bacteria Hyaline Casts Stool Occult Blood Blood Type Antibody Screen Antibody Identification Enhanced Crossmatch 04/06/23 04/06/23 05:25 05:25 MCV MCH MCHC RDW Plt Count MPV Immature Gran % (Auto) Neut % (Auto) Lymph % (Auto) [place]ucks % (Auto) Eos % (Auto) Baso % (Auto) Lymph # (Auto) [place] # (Auto) Eos # (Auto) Baso # (Auto) Abs Immat Gran (auto) Absolute Neuts (auto) Absolute Nucleated RBC Nucleated RBC % (auto) PT INR Anion Gap Estim Creat Clear Calc Estimated GFR 27 Random Glucose 105 Fasting Glucose Cancelled Lactic Acid Calcium Cancelled 9.0 Magnesium 1.9 Total Bilirubin Direct Bilirubin AST ALT Alkaline Phosphatase Total Creatine Kinase Total Protein Albumin Lipase Urine Color Urine Appearance Urine pH Ur Specific [place] Urine Protein Urine Glucose (UA) Urine Ketones Urine Blood Urine Nitrite Ur Leukocyte Esterase Urine RBC Urine WBC Ur Squamous Epith Cells Calcium Oxalate Crystal Urine Bacteria Hyaline Casts Stool Occult Blood Blood Type Antibody Screen Antibody Identification Enhanced Crossmatch Assessment and Plan (1) MEGA (acute kidney injury): Status: Acute (2) Chronic upper gastrointestinal bleeding: Status: Acute (3) Symptomatic anemia: Status: Acute (4) Asthenia: Status: Acute Plan 87 year old pleasant white female with past medical history of 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 Acute renal failure - likely with pre-renal azotemia due to dehydration given poor oral intake - her serum creatinine has gone up to 1.9 from 1.0 - will admit and give IV fluids - re-assess in the morning 2. Upper GI bleed - it appears that she continues to bleed from her gastric AVM given persistent anemia - consult Dr. Allred (GI) - will continue to monitor her hemoglobin 3. Anemia - 2/2 UGIB - admit and and manage as above - she does not meet transfusion threshold at this time 4. Asthenia - likely due to anemia complicated by dehydration - admit and manage her nausea/vomiting - follow H/H closely DVT: SCS's CODE STATUS: Full code Admission for at least 2 midnights for management of symptomatic anemia and acute renal failure Total time managing care of this patient today: 75 minutes. Quality Stroke Does the patient have a stroke diagnosis?: No VTE Prior VTE?: No VTE Risk Level:: Medical - moderate - high VTE Device Contraindication: N/A - Device Ordered VTE Drug Contraindication: Treatment Not Indicated
[2023-04-06] MEDS: oxyCODONE HCl Immed Release 5 MG TABLET PO (06:08)
--- NOTE | 2023-04-06 07:16 | PC.NURSE ---
Patient c/o 12/03 headache , Tylenol given earlier with no effect. Hospitalist notified and ordered Oxycodone. Patient resting at present.
[2023-04-06] MEDS: Mirabegron 25 MG TAB.ER.24H PO (08:14)
[2023-04-06] MEDS: Sucralfate Oral Suspension 1 GM/10 ML ORAL.SUSP PO ×3 (08:14→17:45)
[2023-04-06] MEDS: Docusate Sodium 100 MG CAPSULE PO ×2 (08:14→20:39)
[2023-04-06] MEDS: 0.9 % Sodium Chloride Flush 3 ML SYRINGE IVFLUSH ×3 (08:22→20:39)
--- NOTE | 2023-04-06 09:57 | PC.NURSE ---
assumed care of this pt at 0700. pt seen by Dr. Goldman, pt to be NPO after midnight tonight. plan for endoscopy tomorrow. pt aware of plan. meds given as documented.
--- NOTE | 2023-04-06 10:33 | HO.PM.IMPN ---
Subjective Subjective Date of Service: 04/06/23 Interval History: no further black stools today Physical Exam Vital Signs: Vital Signs: Last Vital Signs Temp 98 F 04/06/23 09:13 Pulse 81 04/06/23 09:13 Resp 18 04/06/23 09:13 BP 170/90 H 04/06/23 09:13 Pulse Ox 100 04/06/23 09:13 O2 Del Method Room Air 04/06/23 09:13 BMI result Body Mass Index 23.3 General: AO X 3, no acute distress Resp: CTA bilateral, no accessory muscles used CVS: S1,S2,RRR GI: soft, non tender, non distended Neuro: motor grossly intact, alert Psych: appropriate affect, appropriate insight Objective Data Active Medications Acetaminophen (Acetaminophen 325 Mg Tablet) 650 mg PO Q6H PRN PRN Reason: Pain, Mild (Pain Scale 1-3) Last Admin: 04/06/23 01:37 Dose: 650 mg Documented By: FRACISCO Al Hydroxide/Mg Hydroxide (Magnesium Hydrox/Alum Hydrox 30 Ml Oral.Susp) 30 ml PO Q4H PRN PRN Reason: Heartburn/Nausea Docusate Sodium (Docusate Sodium 100 Mg Capsule) 100 mg PO BID [facility] Last Admin: 04/06/23 08:14 Dose: 100 mg Documented By: LUIS A Fluoxetine HCl (Fluoxetine Hcl 20 Mg Capsule) 20 mg PO BEDTIME [facility] Last Admin: 04/06/23 00:30 Dose: 20 mg Documented By: ROSS Sodium Chloride (Ns) 100 mls @ 100 mls/hr IV ONCE ONE Stop: 04/06/23 11:10 Latanoprost (Latanoprost 0.005 % Ophth Daisy 2.5 Ml Drops) 1 drop EYE-BOTH BEDTIME [facility] Last Admin: 04/06/23 00:30 Dose: Not Given Documented By: ROSS Non-Admin Reason: Med Not Available Melatonin (Melatonin 3 Mg Tablet) 6 mg PO BEDTIME PRN PRN Reason: Insomnia Mirabegron (Mirabegron 25 Mg Tab.Er.24h) 25 mg PO DAILY [facility] Last Admin: 04/06/23 08:14 Dose: 25 mg Documented By: LUIS A Multivitamins/Vitamin C (Multivitamin Tablet) 1 tab PO BEDTIME [facility] Omeprazole (Omeprazole 20 Mg Capsule.) 20 mg PO BID@0630,5019 [facility] Last Admin: 04/06/23 05:36 Dose: 20 mg Documented By: FRACISCO Ondansetron HCl (Ondansetron Hcl 4 Mg/2 Ml Vial) 4 mg IVPUSH Q8H PRN PRN Reason: Nausea and Vomiting Oxycodone HCl (Oxycodone Hcl Immed Release 5 Mg Tablet) 5 mg PO Q6H PRN PRN Reason: Pain, Moderate(Pain Scale 4-6) Last Admin: 04/06/23 06:08 Dose: 5 mg Documented By: FRACISCO Sodium Chloride (0.9 % Sodium Chloride Flush 3 Ml Syringe) 3 ml IVFLUSH QSHIFT [facility] Last Admin: 04/06/23 08:22 Dose: 3 ml Documented By: LUIS A Sucralfate (Sucralfate Oral Suspension 1 Gm/10 Ml Oral.Susp) 1 gm PO QIDACHS [facility] Last Admin: 04/06/23 08:14 Dose: 1 gm Documented By: LUIS A Sumatriptan Succinate (Sumatriptan Succinate 100 Mg Tablet) 100 mg PO DAILY MRX1 PRN PRN Reason: Migraine Headache Labs 04/06/23 05:25 04/06/23 05:25 Labs: Laboratory Results - last 24 hr 04/05/23 04/05/23 04/06/23 21:04 21:19 00:29 MCV 78.9 L MCH 23.8 L MCHC 30.2 L RDW 16.7 H Plt Count 358 MPV 9.9 Immature Gran % (Auto) 0.3 Neut % (Auto) 65.1 Lymph % (Auto) 24.2 [place] % (Auto) 8.0 Eos % (Auto) 1.6 Baso % (Auto) 0.8 Lymph # (Auto) 1.6 [place] # (Auto) 0.5 Eos # (Auto) 0.1 Baso # (Auto) 0.1 Abs Immat Gran (auto) 0.02 Absolute Neuts (auto) 4.2 Absolute Nucleated RBC 0.000 Nucleated RBC % (auto) 0.0 PT 13.2 INR 1.1 Anion Gap 16 Estim Creat Clear Calc 18.0 Estimated GFR 24 Random Glucose 93 Fasting Glucose Lactic Acid 0.9 Calcium 9.5 Magnesium 2.0 Total Bilirubin 0.3 Direct Bilirubin 0.1 AST 17 ALT 10 Alkaline Phosphatase 106 Total Creatine Kinase 33 Total Protein 7.8 Albumin 3.3 L Lipase 14 Urine Color Dark Yellow Urine Appearance Clear Urine pH 5.5 Ur Specific [place] 1.020 Urine Protein Trace Urine Glucose (UA) Negative Urine Ketones Trace Urine Blood Negative Urine Nitrite Negative Ur Leukocyte Esterase Trace H Urine RBC 0-2 Urine WBC 0-5 Ur Squamous Epith Cells 0-2 Calcium Oxalate Crystal Present Urine Bacteria None Seen Hyaline Casts >20 Stool Occult Blood POSITIVE Blood Type O Positive Antibody Screen POSITIVE Antibody Identification Anti-E Enhanced Crossmatch See Detail 04/06/23 04/06/23 04/06/23 05:25 05:25 05:25 MCV 79.4 L MCH 23.8 L MCHC 30.0 L RDW 16.9 H Plt Count 293 MPV 10.1 Immature Gran % (Auto) 0.4 Neut % (Auto) 55.4 Lymph % (Auto) 29.5 [place] % (Auto) 9.4 Eos % (Auto) 4.5 H Baso % (Auto) 0.8 Lymph # (Auto) 1.5 [place] # (Auto) 0.5 Eos # (Auto) 0.2 Baso # (Auto) 0.0 Abs Immat Gran (auto) 0.02 Absolute Neuts (auto) 2.8 Absolute Nucleated RBC 0.000 Nucleated RBC % (auto) 0.0 PT INR Anion Gap Cancelled 12 Estim Creat Clear Calc Cancelled 20.0 Estimated GFR Cancelled Random Glucose Fasting Glucose Lactic Acid Calcium Magnesium Total Bilirubin Direct Bilirubin AST ALT Alkaline Phosphatase Total Creatine Kinase Total Protein Albumin Lipase Urine Color Urine Appearance Urine pH Ur Specific [place] Urine Protein Urine Glucose (UA) Urine Ketones Urine Blood Urine Nitrite Ur Leukocyte Esterase Urine RBC Urine WBC Ur Squamous Epith Cells Calcium Oxalate Crystal Urine Bacteria Hyaline Casts Stool Occult Blood Blood Type Antibody Screen Antibody Identification Enhanced Crossmatch 04/06/23 04/06/23 05:25 05:25 MCV MCH MCHC RDW Plt Count MPV Immature Gran % (Auto) Neut % (Auto) Lymph % (Auto) [place] % (Auto) Eos % (Auto) Baso % (Auto) Lymph # (Auto) [place] # (Auto) Eos # (Auto) Baso # (Auto) Abs Immat Gran (auto) Absolute Neuts (auto) Absolute Nucleated RBC Nucleated RBC % (auto) PT INR Anion Gap Estim Creat Clear Calc Estimated GFR 27 Random Glucose 105 Fasting Glucose Cancelled Lactic Acid Calcium Cancelled 9.0 Magnesium 1.9 Total Bilirubin Direct Bilirubin AST ALT Alkaline Phosphatase Total Creatine Kinase Total Protein Albumin Lipase Urine Color Urine Appearance Urine pH Ur Specific [place] Urine Protein Urine Glucose (UA) Urine Ketones Urine Blood Urine Nitrite Ur Leukocyte Esterase Urine RBC Urine WBC Ur Squamous Epith Cells Calcium Oxalate Crystal Urine Bacteria Hyaline Casts Stool Occult Blood Blood Type Antibody Screen Antibody Identification Enhanced Crossmatch Assessment and Plan (1) Symptomatic anemia: Status: Acute Plan 87F PMH chronic iron deficiency anemia, mood disorder, breast ca s/p chemoradiation, pelvic mass s/p aslpingooopherectomy, presented with melena acute on chronic blood loss anemia transfuse 1 unit ppi, carafate plan for egd 04/07/23 also eleemnt of anemia of chronic disease carol ?dehydration ivf, monitor mood disorder prozac dvt prophylaxis - mechanical due to melena full code reason for continued hospitalization:plan for egd tomorrow Quality Stroke Does the patient have a stroke diagnosis?: No VTE Prior VTE?: No VTE Risk Level:: Medical - moderate - high VTE Device Contraindication: N/A - Device Ordered VTE Drug Contraindication: Treatment Not Indicated
--- NOTE | 2023-04-06 11:08 | PC.NURSE ---
low H+H, one unit PRBC ordered. waiting on blood consent to be done. Dr. Susi kevin.
--- NOTE | 2023-04-06 11:54 | PC.NURSE ---
blood bank called to notify on the green tag there is a missing zero. blood bank staff notified will come to overflow to double check.
--- NOTE | 2023-04-06 12:01 | MHC.CM.PN ---
pt lives with dgter in an inlaw apt asim\ has her won ride home dc plan home w/family
--- NOTE | 2023-04-06 12:02 | PC.NURSE ---
yue came to bedside from blood bank, crossed out and initialed the hand written tag. Merlene, Charge Nurse and Gunjan, Automobile Glass Technician was notified due to concerns of the two verifying RNs (Clau and Jackelin). Per traffic personnel supervisor, contact blood bank and ask for a different unit of blood to be issued. Blood bank was contacted, first unit of blood returned to blood bank. Waiting for new unit to be issued.
--- NOTE | 2023-04-06 13:15 | PC.NURSE ---
new unit of blood issued, blood verified by two rns and blood transfusion started as documented. vss.
--- NOTE | 2023-04-06 15:20 | PC.NURSE ---
blood transfusions completed. vss.denies pain.
--- NOTE | 2023-04-06 15:23 | PC.NURSE ---
pt transported via w/c to room 345 by [facility]. written report was sent, report was confirmed by CAREY Delacruz.
[2023-04-06] MEDS: Multivitamin TABLET 1 TAB PO (20:39)
[2023-04-06] MEDS: Latanoprost 0.005 % Ophth Sol 2.5 ML DROPS 1 DROP EYE-BOTH (21:21)
[2023-04-07 03:45] VITALS: BP 138/73; PULSE 78; RESP 17; TEMP 36.4; O2SAT 94
[2023-04-07] MEDS: Omeprazole 20 MG CAPSULE.DR PO (05:05)
[2023-04-07 06:36] VITALS: BP 163/77; PULSE 74; RESP 18; TEMP 36.2; O2SAT 98; BMI 23.3
[2023-04-07 06:49] LABS: Hematocrit 29.1 % (37.0-47.0); Mean Corpuscular HGB Conc 30.9 g/dl (31.0-35.0); Mean Corpuscular Hemoglobin 24.5 pg (27.0-33.0); Mean Corpuscular Volume 79.3 fL (80.0-98.0); Mean Platelet Volume 10.4 fL (9.4-12.3); Platelet Count 290 X10*3/uL (160-400); Red Blood Count 3.67 X10*6/uL (4.20-5.50); Red Cell Distribution Width 17.4 % (11.0-16.0); White Blood Count 3.8 X10*3/uL (4.8-10.8)
[2023-04-07] MEDS: Lactated Ringers 1,000 ML 100 ML IVCONT (06:50)
--- NOTE | 2023-04-07 07:01 | PC.NURSE ---
Blood Bank contacted, BB expires tomorrow 04/08. One unit prbc ordered and transfused prior to SSS arrival.
[2023-04-07 07:10] LABS: Anion Gap 10 (12-20); Blood Urea Nitrogen 19 mg/dL (9-16); Calcium 8.9 mg/dL (8.4-10.2); Carbon Dioxide 25 mmol/L (22-29); Chloride 106 mmol/L (96-108); Creatinine Clr Calc Pharmacy 30.7; Estimated Glomerular Filt Rate 44; Glucose Fasting 104 mg/dL (60-99); Potassium 4.1 mmol/L (3.3-5.1); Sodium 137 mmol/L (135-145)
--- NOTE | 2023-04-07 07:30 | P.CONAN_ITS ---
HPI - Anesthesia Eval Consult details Narrative: upper endp Anesthesia Pre-Procedure Meds If Yes to any meds - educate patient: Pt education - increased risk of aspiration PMFSH Active Problems Active Problems: All Active Problems (Updated 04/06/23 @ 06:09 by Demetri Zabala MD) Asthenia (Acute) Symptomatic anemia (Acute) MEGA (acute kidney injury) (Acute) Chronic upper gastrointestinal bleeding (Acute) Chronic knee pain after total replacement of both knee joints (Acute) Bilateral knee pain (Acute) History of bilateral knee arthroplasty (Acute) Pelvic mass (Acute) Breast cancer (Acute) Breast cancer in female (Acute) Past Medical History Medical History Migraine Acute anemia Cataracts, bilateral Iron deficiency anemia FH: total knee replacement Cholecystectomy planned Diverticulitis Hx of breast cancer Iron deficiency anemia Functional capacity: independent ambulation Family History Family History Sister Breast cancer Diabetes Mother Diabetes Family history of problems with anesthesia: No Surgical History Surgical History History of colostomy reversal H/O total knee replacement H/O colonoscopy Cataract History of Problems with Anesthesia: No Social History Social History Household Members: Children Household Members Other:: 3 Housing: House Are you a primary career resource specialist to a significant other at home: No Do you presently have visiting nurse or other home services: No Alcohol intake: never Comment: Pt low fall risk Patient Tobacco Use Status: Former Tobacco user service: No Current occupational status: retired Meds Allergies Allergy/AdvReac Type Severity Reaction Status Date / Time sulfamethoxazole Allergy Severe rash/itchin Verified 04/05/23 18:56 [From Bactrim] g trimethoprim [From Bactrim] Allergy Severe rash/itchin Verified 04/05/23 18:56 g Penicillins Allergy Mild RASH Verified 04/05/23 18:56 pregabalin [From Lyrica] Allergy Mild Rash Verified 04/05/23 18:56 Rzvhokj-AFV-EjX Reductase Allergy Mild RASH Verified 04/05/23 18:56 Inhibitor [Statins: Hmg-Coa Reductase Inhibito] levofloxacin [From LEVAQUIN] Allergy Unknown RED RASH Verified 04/05/23 18:56 gabapentin Allergy Unknown Verified 04/05/23 18:56 Active Medications: Current Medications Acetaminophen (Acetaminophen 325 Mg Tablet) 650 mg PO Q6H PRN PRN Reason: Pain, Mild (Pain Scale 1-3) Last Admin: 04/06/23 01:37 Dose: 650 mg Al Hydroxide/Mg Hydroxide (Magnesium Hydrox/Alum Hydrox 30 Ml Oral.Susp) 30 ml PO Q4H PRN PRN Reason: Heartburn/Nausea Docusate Sodium (Docusate Sodium 100 Mg Capsule) 100 mg PO BID [facility] Last Admin: 04/06/23 20:39 Dose: 100 mg Fluoxetine HCl (Fluoxetine Hcl 20 Mg Capsule) 20 mg PO BEDTIME [facility] Last Admin: 04/06/23 20:39 Dose: 20 mg Lactated Ringer's (Lr) 1,000 mls @ 100 mls/hr IVCONT .Q10H [facility] Last Admin: 04/07/23 06:50 Dose: 100 mls/hr Latanoprost (Latanoprost 0.005 % Ophth Daisy 2.5 Ml Drops) 1 drop EYE-BOTH BEDTIME [facility] Last Admin: 04/06/23 21:21 Dose: 1 drop Melatonin (Melatonin 3 Mg Tablet) 6 mg PO BEDTIME PRN PRN Reason: Insomnia Mirabegron (Mirabegron 25 Mg Tab.Er.24h) 25 mg PO DAILY [facility] Last Admin: 04/06/23 08:14 Dose: 25 mg Multivitamins/Vitamin C (Multivitamin Tablet) 1 tab PO BEDTIME [facility] Last Admin: 04/06/23 20:39 Dose: 1 tab Omeprazole (Omeprazole 20 Mg Capsule.Dr) 20 mg PO BID@0630,1630 [facility] Last Admin: 04/07/23 05:05 Dose: 20 mg Ondansetron HCl (Ondansetron Hcl 4 Mg/2 Ml Vial) 4 mg IVPUSH Q8H PRN PRN Reason: Nausea and Vomiting Oxycodone HCl (Oxycodone Hcl Immed Release 5 Mg Tablet) 5 mg PO Q6H PRN PRN Reason: Pain, Moderate(Pain Scale 4-6) Last Admin: 04/06/23 06:08 Dose: 5 mg Sodium Chloride (0.9 % Sodium Chloride Flush 3 Ml Syringe) 3 ml IVFLUSH QSHIFT [facility] Last Admin: 04/06/23 20:39 Dose: 3 ml Sucralfate (Sucralfate Oral Suspension 1 Gm/10 Ml Oral.Susp) 1 gm PO QIDACHS [facility] Last Admin: 04/06/23 17:45 Dose: 1 gm Sumatriptan Succinate (Sumatriptan Succinate 100 Mg Tablet) 100 mg PO DAILY MRX1 PRN PRN Reason: Migraine Headache Home Medications Medication Instructions Recorded Confirmed Last Taken Type fluoxetine 20 mg capsule 1 cap PO BEDTIME 04/04/20 04/05/23 04/04/23 History latanoprost 0.005 % eye drops 1 drp ophthalmic (eye) BEDTIME 04/04/20 04/05/23 04/04/23 History sumatriptan succinate 100 mg tablet 1 tab PO DAILY MRX1 PRN Migraine 04/04/20 04/05/23 04/04/23 History Headache ferrous sulfate 325 mg (65 mg 325 mg PO BID 07/02/20 04/05/23 04/05/23 History iron) tablet (iron) multivitamin 1 tab PO BEDTIME 12/12/22 04/05/23 04/04/23 History mirabegron 25 mg tablet,extended 25 mg PO DAILY 01/11/23 04/05/23 04/05/23 History release 24 hr (Myrbetriq) Exam Height,Weight and Vital Signs: Height 5 ft 5 in Weight 63.503 kg Last Vital Signs Temp 97.1 F 04/07/23 06:36 Pulse 74 04/07/23 06:36 Resp 18 04/07/23 06:36 BP 163/77 H 04/07/23 06:36 Pulse Ox 98 04/07/23 06:36 O2 Del Method Room Air 04/07/23 06:36 Pertinent Lab Results Pertinent Lab Results: Laboratory Tests 04/05/23 04/05/23 04/06/23 21:04 21:19 00:29 WBC 6.4 RBC 3.69 L Hgb 8.8 L Hct 29.1 L MCV 78.9 L MCH 23.8 L MCHC 30.2 L RDW 16.7 H Plt Count 358 MPV 9.9 Immature Gran % (Auto) 0.3 Neut % (Auto) 65.1 Lymph % (Auto) 24.2 Hand % (Auto) 8.0 Eos % (Auto) 1.6 Baso % (Auto) 0.8 Lymph # (Auto) 1.6 Hand # (Auto) 0.5 Eos # (Auto) 0.1 Baso # (Auto) 0.1 Abs Immat Gran (auto) 0.02 Absolute Neuts (auto) 4.2 Absolute Nucleated RBC 0.000 Nucleated RBC % (auto) 0.0 PT 13.2 INR 1.1 Sodium 138 Potassium 4.5 Chloride 104 Carbon Dioxide 23 Anion Gap 16 BUN 26 H Creatinine 1.97 H Estim Creat Clear Calc 18.0 Estimated GFR 24 Random Glucose 93 Fasting Glucose Lactic Acid 0.9 Calcium 9.5 Magnesium 2.0 Total Bilirubin 0.3 Direct Bilirubin 0.1 AST 17 ALT 10 Alkaline Phosphatase 106 Total Creatine Kinase 33 Troponin I High Sens 3.7 Total Protein 7.8 Albumin 3.3 L Lipase 14 Urine Color Dark Yellow Urine Appearance Clear Urine pH 5.5 Ur Specific [place] 1.020 Urine Protein Trace Urine Glucose (UA) Negative Urine Ketones Trace Urine Blood Negative Urine Nitrite Negative Ur Leukocyte Esterase Trace H Urine RBC 0-2 Urine WBC 0-5 Ur Squamous Epith Cells 0-2 Calcium Oxalate Crystal Present Urine Bacteria None Seen Hyaline Casts >20 Stool Occult Blood POSITIVE Blood Type O Positive Antibody Screen POSITIVE Antibody Identification Anti-E Enhanced Crossmatch See Detail 04/06/23 04/06/23 04/06/23 05:25 05:25 05:25 WBC 5.1 RBC 3.44 L Hgb 8.2 L Hct 27.3 L MCV 79.4 L MCH 23.8 L MCHC 30.0 L RDW 16.9 H Plt Count 293 MPV 10.1 Immature Gran % (Auto) 0.4 Neut % (Auto) 55.4 Lymph % (Auto) 29.5 Hand % (Auto) 9.4 Eos % (Auto) 4.5 H Baso % (Auto) 0.8 Lymph # (Auto) 1.5 Hand # (Auto) 0.5 Eos # (Auto) 0.2 Baso # (Auto) 0.0 Abs Immat Gran (auto) 0.02 Absolute Neuts (auto) 2.8 Absolute Nucleated RBC 0.000 Nucleated RBC % (auto) 0.0 PT INR Sodium Cancelled 139 Potassium Cancelled 4.0 Chloride Cancelled Carbon Dioxide Anion Gap BUN Creatinine Estim Creat Clear Calc Estimated GFR Random Glucose Fasting Glucose Lactic Acid Calcium Magnesium Total Bilirubin Direct Bilirubin AST ALT Alkaline Phosphatase Total Creatine Kinase Troponin I High Sens Total Protein Albumin Lipase Urine Color Urine Appearance Urine pH Ur Specific [place] Urine Protein Urine Glucose (UA) Urine Ketones Urine Blood Urine Nitrite Ur Leukocyte Esterase Urine RBC Urine WBC Ur Squamous Epith Cells Calcium Oxalate Crystal Urine Bacteria Hyaline Casts Stool Occult Blood Blood Type Antibody Screen Antibody Identification Enhanced Crossmatch 04/06/23 04/06/23 04/06/23 05:25 05:25 05:25 WBC RBC Hgb Hct MCV MCH MCHC RDW Plt Count MPV Immature Gran % (Auto) Neut % (Auto) Lymph % (Auto) Hand % (Auto) Eos % (Auto) Baso % (Auto) Lymph # (Auto) Hand # (Auto) Eos # (Auto) Baso # (Auto) Abs Immat Gran (auto) Absolute Neuts (auto) Absolute Nucleated RBC Nucleated RBC % (auto) PT INR Sodium Potassium Chloride 109 H Carbon Dioxide Cancelled 22 Anion Gap Cancelled 12 BUN Cancelled Creatinine Estim Creat Clear Calc Estimated GFR Random Glucose Fasting Glucose Lactic Acid Calcium Magnesium Total Bilirubin Direct Bilirubin AST ALT Alkaline Phosphatase Total Creatine Kinase Troponin I High Sens Total Protein Albumin Lipase Urine Color Urine Appearance Urine pH Ur Specific [place] Urine Protein Urine Glucose (UA) Urine Ketones Urine Blood Urine Nitrite Ur Leukocyte Esterase Urine RBC Urine WBC Ur Squamous Epith Cells Calcium Oxalate Crystal Urine Bacteria Hyaline Casts Stool Occult Blood Blood Type Antibody Screen Antibody Identification Enhanced Crossmatch 04/06/23 04/06/23 04/06/23 05:25 05:25 05:25 WBC RBC Hgb Hct MCV MCH MCHC RDW Plt Count MPV Immature Gran % (Auto) Neut % (Auto) Lymph % (Auto) Hand % (Auto) Eos % (Auto) Baso % (Auto) Lymph # (Auto) Hand # (Auto) Eos # (Auto) Baso # (Auto) Abs Immat Gran (auto) Absolute Neuts (auto) Absolute Nucleated RBC Nucleated RBC % (auto) PT INR Sodium Potassium Chloride Carbon Dioxide Anion Gap BUN 28 H Creatinine Cancelled 1.78 H Estim Creat Clear Calc Cancelled 20.0 Estimated GFR Cancelled Random Glucose Fasting Glucose Lactic Acid Calcium Magnesium Total Bilirubin Direct Bilirubin AST ALT Alkaline Phosphatase Total Creatine Kinase Troponin I High Sens Total Protein Albumin Lipase Urine Color Urine Appearance Urine pH Ur Specific [place] Urine Protein Urine Glucose (UA) Urine Ketones Urine Blood Urine Nitrite Ur Leukocyte Esterase Urine RBC Urine WBC Ur Squamous Epith Cells Calcium Oxalate Crystal Urine Bacteria Hyaline Casts Stool Occult Blood Blood Type Antibody Screen Antibody Identification Enhanced Crossmatch 04/06/23 04/06/23 04/07/23 05:25 05:25 05:51 WBC 3.8 L RBC 3.67 L Hgb 9.0 L Hct 29.1 L MCV 79.3 L MCH 24.5 L MCHC 30.9 L RDW 17.4 H Plt Count 290 MPV 10.4 Immature Gran % (Auto) Neut % (Auto) Lymph % (Auto) Hand % (Auto) Eos % (Auto) Baso % (Auto) Lymph # (Auto) Hand # (Auto) Eos # (Auto) Baso # (Auto) Abs Immat Gran (auto) Absolute Neuts (auto) Absolute Nucleated RBC 0.000 Nucleated RBC % (auto) 0.0 PT INR Sodium 137 Potassium 4.1 Chloride 106 Carbon Dioxide 25 Anion Gap 10 L BUN 19 H Creatinine 1.16 Estim Creat Clear Calc 30.7 Estimated GFR 27 44 Random Glucose 105 Fasting Glucose Cancelled 104 H Lactic Acid Calcium Cancelled 9.0 8.9 Magnesium 1.9 Total Bilirubin Direct Bilirubin AST ALT Alkaline Phosphatase Total Creatine Kinase Troponin I High Sens Total Protein Albumin Lipase Urine Color Urine Appearance Urine pH Ur Specific [place] Urine Protein Urine Glucose (UA) Urine Ketones Urine Blood Urine Nitrite Ur Leukocyte Esterase Urine RBC Urine WBC Ur Squamous Epith Cells Calcium Oxalate Crystal Urine Bacteria Hyaline Casts Stool Occult Blood Blood Type Antibody Screen Antibody Identification Enhanced Crossmatch Airway Mallampati Class: II TM Dist: >3cm Neck ROM: Limited Heart: cta Lungs: rrr Assessment and Plan Assessment Anesthesia Assessment: Anesthesia Plan Discussed and Chart Reviewed Final Anesthetic Review Family History of Problems with Anesthesia: No History of Problems with Anesthesia: No NPO: Yes ASA Class: III Final Preanesthetic Review: No Changes in Pt Med Stat, Meds/Allgs Chart Reviewed, Consent Obtained/Reviewed and Anes Risks/Benef Reviewed Patient Risk: Intermediate Procedure Risk: Intermediate Anesthetic Plan Anesthetic Plan: GA Disposition: Standard PACU
--- NOTE | 2023-04-07 08:06 | P.BOP_ITS ---
Brief Operative Note Date of Service: 04/07/23 Pre-op diagnosis: UGI Bleed Post-op diagnosis: other (Hiatal hernia, Gastric polyps, 2 remaining clips on the previous bleeding site in the proximal stomach) Procedure: EGD Surgeon: Dawood Allred MD Anesthesia: MAC Was an Page Technician used for this Procedure?: No Estimated blood loss (mL): 0 Pathology: none sent Condition: stable Disposition: PACU
[2023-04-07 08:09] VITALS: BP 142/62; PULSE 73; RESP 18; TEMP 36.1; O2SAT 96
--- NOTE | 2023-04-07 08:14 | PM.EVENT ---
Event Note Date of Service: 04/07/23 Event Note: GI-EGD-Full note dictated Findings: 1. Two clips from 11/2022 were still present on the previous bleeding site in proximal stomach. There was no sign of bleeding. 2. Hiatal hernia 3. Gastric polyps No bleeding nor old blood in the UGI tract Rec: Advance diet, continue PPI and sucralfate, resume Iron, F/U CBC's as an outpatient, discharge later today if stable, and I will arrange for an outpatient small bowel video capsule study. D/W daughter, Christine. Thanks Time Spent With Patient Time: Total time managing care of this patient today ____ minutes.
[2023-04-07 08:25] VITALS: BP 140/65; PULSE 86; RESP 18; TEMP 36.1; O2SAT 97
[2023-04-07 08:39] VITALS: BP 140/65; PULSE 86; O2SAT 97
--- NOTE | 2023-04-07 08:42 | OP_ITS ---
DATE OF SERVICE: 04/07/2023 SURGEON: Dawood Allred MD INDICATIONS: The patient presents for evaluation of GI bleeding. Full consent was obtained from her for this, including risks of bleeding and perforation. PREOPERATIVE DIAGNOSIS: Gastrointestinal bleeding. POSTOPERATIVE DIAGNOSIS: PROCEDURE PERFORMED: Esophagogastroduodenoscopy. ESTIMATED BLOOD LOSS: COMPLICATIONS: ANESTHESIA: Monitored anesthesia care. ASSISTANTS: SPECIMENS: POSTOPERATIVE DIAGNOSES: Gastrointestinal bleeding, hiatal hernia, gastric polyps, 2 remaining clips present on the previous bleeding site from back in November of 2022. DESCRIPTION OF PROCEDURE: The patient was placed in the left lateral decubitus position. The Olympus video gastroscope was passed in the posterior oropharynx and upper esophagus under direct vision. The scope was passed slowly to the distal esophagus. The gastroesophageal junction appeared normal at 33 cm. There was no sign of any esophagitis nor Larry's esophagus. The scope entered the stomach. There was a small to moderate-sized hiatal hernia. The scope was advanced to the pylorus and the duodenum was cannulated to the descending portion. The duodenum including the bulb appeared normal without mass or ulceration. There was no sign of any bleeding nor old blood in the duodenum. The scope was withdrawn back to the stomach. The gastric antrum and body appeared normal with good peristalsis. The scope was retroflexed visualizing the proximal stomach carefully, which appeared normal other than multiple hyperplastic appearing gastric polyps. There was no mass, ulceration, bleeding, nor any old blood. Both in the forward viewing and retroflexed positions, I was able to visualize the previous site that was treated back in November. On this site were 2 remaining Resolution clips that had been placed at that time. This was in the proximal stomach at approximately 42 cm along the anterior wall. The site appeared otherwise clean and without any sign of vessel, ulceration, nor bleeding. The scope was withdrawn back to the esophagus. The esophageal mucosa appeared normal. The scope was withdrawn from the patient. She tolerated the procedure well and was returned to the recovery area in stable condition. IMPRESSION: 1. Hiatal hernia. 2. Gastric polyps. 3. Two remaining Resolution clips on previous bleeding site from back in November. PLAN: The patient will resume her omeprazole twice a day, sucralfate 4 times a day, and iron twice a day. Her diet will be advanced. At this point, I would recommend she have an outpatient small bowel video capsule study in the near future to further evaluate her recent drop in hemoglobin and what sounded like some reported melena. She will continue to avoid all aspirin and NSAIDs. She will have outpatient laboratories for continued close following of her hemoglobin. This has all been discussed with her daughter, Christine, in detail. MD GATO Jones/AB / [id number] MTDD
[2023-04-07 08:55] VITALS: BP 160/74; PULSE 69; RESP 16; TEMP 36.6; O2SAT 98
[2023-04-07] MEDS: Docusate Sodium 100 MG CAPSULE PO (09:26)
[2023-04-07] MEDS: 0.9 % Sodium Chloride Flush 3 ML SYRINGE IVFLUSH (09:26)
[2023-04-07] MEDS: Sucralfate Oral Suspension 1 GM/10 ML ORAL.SUSP PO (09:26)
[2023-04-07] MEDS: Ferrous Sulfate 324 MG TABLET.DR PO (09:26)
[2023-04-07] MEDS: Mirabegron 25 MG TAB.ER.24H PO (09:26)
--- NOTE | 2023-04-07 10:39 | P.DS_ITS ---
DS: Providers Provider Date of Service: 04/07/23 Date of admission: 04/05/23 23:12 Primary care physician: Jl Hameed MD Consults: 04/05/23 23:12 Consult to Gastroenterology Routine Consulting Provider: Dawood Allred Reason for consultation: UGIB Has provider been notified: Yes DS: Diagnosis Discharge Diagnosis (1) Symptomatic anemia: Status: Acute (2) Asthenia: Status: Acute (3) MEGA (acute kidney injury): Status: Acute (4) Chronic upper gastrointestinal bleeding: Status: Acute DS: Summary Hospital Course Hospital Course: Admission note HPI Patient is a 87 year old pleasant white female with past medical history of 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 Allred) for evaluation after she called him and reported having generalized weakness with easy fatigability and dizziness for the past 3 days.? She also reports poor oral tolerance stating stating that she vomited this morning when she tried to drink some water and was also unable to take soup this afternoon.? Her stools are black (though she is also on Iron).? She was transfused on 03/23 but given her present complains, he was concerned that she maybe dehydrated or had worsening anemia and so advised her to come in for evaluation.? She also been planned for an EGD and he wants to pursue it during this admission.? Initial lab work done revealed a fairly stable hemoglobin at 8.8 but now with some mild renal insufficiency with a serum creatinine of 1.9.? She was started on IV fluids following which admission was requested. Of note, he had planned to have an EGD done and this may be pursued during this admission. Hospital course The patient was admitted for evaluation of acute on chronic blood loss anemia with reported black stools. noticed to have mild drop in Hb to 8.8 improved to 9.6 with 1 unit transfusion. Evaluated by GI dr Allred who did an upped endoscopy showing hiatal hernia with no ulcers or clear source of bleeding with a plan for outpatient follow up for capsule endoscopy. Continue PPI, carafate. Noted to have acute kidney injury. responded well to hydration as KFT improved back to baseline. Continue Omeprazole, Carafate Avoid Aspirin and NSAIDs Follow with dr Allred as outpatient for Capsule endoscopy study as outpatient repeat blood level next week Time Attestation Discharge coordination time: Greater than 30 minutes Quality: Safe Use of Opioids Does Pt have an Active Cancer Diagnosis on the Problem List?: No Quality: Stroke Does the patient have a stroke diagnosis?: No Physical Exam Vital Signs: Vital Signs: Last Vital Signs Temp 98 F 04/07/23 08:55 Pulse 69 04/07/23 08:55 Resp 16 04/07/23 08:55 BP 160/74 H 04/07/23 08:55 Pulse Ox 98 04/07/23 08:55 O2 Del Method Room Air 04/07/23 08:55 BMI result Body Mass Index 23.3 Const: Other: Constitutional : Awake, interactive, not in distress Neck : Normal inspection, Supple Cardiovascular : RRR, no JVP, no lower extremity edema Respiratory : good bilateral air entry, no crackles, wheezes or rhonchi Gastrointestinal: soft, lax, Normal bowel sounds, Non tender Skin : Warm, Dry Neurological : Alert & oriented x3, No focal deficit DS: Data Data Completed and Pending Completed studies during hospitalization [Text1]: Procedures Control Bleeding in Gastrointestinal Tract, Via Natural or Artificial Opening Endoscopic (12/12/22) Introduction of Mineral-based Topical Hemostatic Agent into Upper GI, Via Natural or Artificial Opening Endoscopic, [employer] 6 (12/12/22) Introduction of Other Therapeutic Substance into Upper GI, Via Natural or Artificial Opening Endoscopic (12/12/22) Transfusion of Nonautologous Red Blood Cells into Peripheral Vein, Percutaneous Approach (12/12/22) Labs on day of discharge: Laboratory Results - last 24 hr 04/05/23 04/07/23 21:04 05:51 WBC 3.8 L RBC 3.67 L Hgb 9.0 L Hct 29.1 L MCV 79.3 L MCH 24.5 L MCHC 30.9 L RDW 17.4 H Plt Count 290 MPV 10.4 Absolute Nucleated RBC 0.000 Nucleated RBC % (auto) 0.0 Sodium 137 Potassium 4.1 Chloride 106 Carbon Dioxide 25 Anion Gap 10 L BUN 19 H Creatinine 1.16 Estim Creat Clear Calc 30.7 Estimated GFR 44 Fasting Glucose 104 H Calcium 8.9 Blood Type O Positive Antibody Screen POSITIVE Antibody Identification Anti-E Enhanced Crossmatch See Detail Discharge Plan Discharge Anticipated Discharge Date/Time: 04/07/23 10:32 Patient Disposition: Home Health Service Discharge Diagnosis: Symptomatic anemia Acute kidney injury Referrals: Jl Hameed MD [Primary Care Provider] - 1 Week Discharge Medications: Continued latanoprost 0.005 % drops 1 drp ophthalmic (eye) BEDTIME sumatriptan succinate 100 mg tablet 1 tab PO DAILY MRX1 PRN (Reason: Migraine Headache) Rx Instructions: MRX1 after 2 hours fluoxetine 20 mg capsule 1 cap PO BEDTIME ferrous sulfate [iron] 325 mg (65 mg iron) Tablet 325 mg PO BID multivitamin Tablet 1 tab PO BEDTIME sucralfate 100 mg/mL Suspension 1 g PO QIDACHS Qty: 420 0RF omeprazole 20 mg Capsule,Delayed Release(Dr/Ec) 20 mg PO BID@0630,1630 Qty: 60 0RF Myrbetriq 25 mg tablet extended release 24 hr 25 mg PO DAILY Discharge Orders: Discharge Order (Routine); Ordered 04/07/23 Ordered By: Lindsey Campbell Diet: Advance to usual diet Activity on Discharge: As tolerated Stand Alone Forms: Patient Portal Discharge page Other Ambulatory Orders: Complete Blood Count Auto Diff (Routine) Timeframe: 1 Week Facility: [facility] - Location: Laboratory Ordered By: Lindsey Campbell Care Plan Goals: Read below Health Concerns: Read below Plan of Treatment: Read below Assessment: You were admitted for evaluation of weakness and black stool. received 1 unit opf blood and evaluated by lay out and detail drafter who did an upper endoscopy. no clear source of bleeding identified. Continue Omeprazole, Carafate Avoid Aspirin and NSAIDs Follow with dr Allred as outpatient for Capsule endoscopy study as outpatient repeat blood level next week
--- NOTE | 2023-04-07 12:07 | MHC.CM.PN ---
DP: PT HAS BEEN MEDICALLY CLEARED FOR DC HOME, NO SERVICES. PT HAS OWN [facility] HOME
== END 2023-04-07 11:42 | disposition home or self-care (01) | DRG 378 ==
LOC: HO.ED 21:48 → HO.EDOVER 23:18 → HO.S3 04-06 13:45
PROVIDERS: Internal Medicine; Admitting Provider Internal Medicine; Emergency Provider Emergency Medicine; PCP Internal Medicine; Visit Provider Student in an Organized Health Care Education/Training Program
DX: K92.2 Gastrointestinal hemorrhage, unspecified (principal); D62 Acute posthemorrhagic anemia; N17.9 Acute kidney failure, unspecified; K31.7 Polyp of stomach and duodenum; K44.9 Diaphragmatic hernia without obstruction or gangrene; F39 Unspecified mood [affective] disorder; E86.0 Dehydration; Z87.891 Personal history of nicotine dependence; Z79.899 Other long term (current) drug therapy
CPT/HCPCS: 36415; 80048; 80076; 81001; 82272; 82550; 83605; 83690; 83735; 84484; 85025; 85027; 85610; 86850; 86870; 86900; 86901; 86902; 86920; 86921; 90686; 93005; 97162; 99212; 99285; C9113; J7120; P9016

== ENCOUNTER → 2023-04-05 20:43 | Outpatient (BNV) | payer MEDICARE, SELFPAY | PROVIDERS: Admitting Provider Internal Medicine; Emergency Provider Emergency Medicine; PCP Internal Medicine; Visit Provider Internal Medicine Cardiovascular Disease | DX: I49.9 Cardiac arrhythmia, unspecified (principal) | CPT/HCPCS: 93010 ==

== ENCOUNTER → 2023-04-05 23:12 | Outpatient (BNV) | payer MEDICARE, SELFPAY | PROVIDERS: Admitting Provider Internal Medicine; Emergency Provider Emergency Medicine; PCP Internal Medicine; Visit Provider Internal Medicine | DX: N17.9 Acute kidney failure, unspecified (principal); D64.9 Anemia, unspecified; R53.1 Weakness; K92.2 Gastrointestinal hemorrhage, unspecified | CPT/HCPCS: 99223; 99239; 99499 ==

== ENCOUNTER 2023-04-14 10:12 | Outpatient (REF) | payer MEDICARE, SELFPAY ==
[2023-04-14 10:23] LABS: MANUAL DIFF FLAG NO
[2023-04-14 10:43] LABS: Basophils Absolute Auto 0.1 X10*3/uL (0.0-0.2); Basophils Percent Auto 1.5 % (0-2); Eosinophils Absolute Auto 0.3 X10*3/uL (0.0-0.4); Eosinophils Percent Auto 6.1 % (0-4); Hemoglobin 11.5 g/dl (12.0-16.0); Imm Gran Abs Auto 0.01 X10*3/uL (0.00-0.03); Imm Gran Pct Auto 0.2 % (0.0-0.4); Lymphocytes Absolute Auto 1.4 X10*3/uL (1.2-4.9); Lymphocytes Percent Auto 30.1 % (20-40); Mean Corpuscular HGB Conc 30.3 g/dl (31.0-35.0); Mean Corpuscular Hemoglobin 24.8 pg (27.0-33.0); Mean Corpuscular Volume 81.9 fL (80.0-98.0); Mean Platelet Volume 10.4 fL (9.4-12.3); Monocytes Absolute Auto 0.4 X10*3/uL (0.1-1.2); Monocytes Percent Auto 8.4 % (2-11); Neutrophils Absolute Auto 2.6 x10*3/uL (2.0-8.3); Neutrophils Percent Auto 53.7 % (45-73); Platelet Count 395 X10*3/uL (160-400); Red Blood Count 4.64 X10*6/uL (4.20-5.50); Red Cell Distribution Width 18.3 % (11.0-16.0); White Blood Count 4.8 X10*3/uL (4.8-10.8)
== END 2023-04-14 10:13 | disposition home or self-care (01) ==
LOC: HO.LAB 10:12
PROVIDERS: Absent Provider Student in an Organized Health Care Education/Training Program; PCP Internal Medicine; Visit Provider Internal Medicine
DX: D50.0 Iron deficiency anemia secondary to blood loss (chronic) (principal)
CPT/HCPCS: 36415; 85025

== ENCOUNTER 2023-04-23 08:18 | Outpatient (AMB) | payer MEDICARE, SELFPAY ==
--- NOTE | 2023-04-23 08:23 | A.OFFVIS_ITS ---
Intake Intake Visit Reasons: CAPSULE ENDOSCOPY Intake Note: Patient presents to the office for capsule endoscopy. Patient has completed prep and has no questions or concerns. I explained the procedure to the patient and provided time to ask any questions. Patient had equipment placed in office, no issues with swallowing the pill cam. Patient informed that she can start clear liquids in two hours, and can have a light snack in four hours. Patient provided with number to our office and encouraged to call with any questions. Allergies sulfamethoxazole [From Bactrim] Allergy (Severe, Verified 04/05/23 18:56) rash/itching trimethoprim [From Bactrim] Allergy (Severe, Verified 04/05/23 18:56) rash/itching Penicillins Allergy (Mild, Verified 04/05/23 18:56) RASH pregabalin [From Lyrica] Allergy (Mild, Verified 04/05/23 18:56) Rash Glvrgfd-NIL-FzU Reductase Inhibitor [Statins: Hmg-Coa Reductase Inhibito] Allergy (Mild, Verified 04/05/23 18:56) RASH levofloxacin [From LEVAQUIN] Allergy (Unknown, Verified 04/05/23 18:56) RED RASH gabapentin Allergy (Verified 04/05/23 18:56) Unknown [facility] Medical History (Updated 05/02/23 @ 19:50 by Tyler Lombardo MD) Iron deficiency anemia Chronic upper gastrointestinal bleeding Migraine Acute anemia Cataracts, bilateral FH: total knee replacement Cholecystectomy planned Diverticulitis Hx of breast cancer Iron deficiency anemia Surgical History (Updated 04/13/23 @ 00:03 by Bette Gerard) History of colostomy reversal H/O total knee replacement H/O colonoscopy Cataract Family History Sister Breast cancer Diabetes Mother Diabetes Social History Household Members: Children Household Members Other:: 3 Housing: House Are you a primary post acute care registered nurse to a significant other at home: No Do you presently have visiting nurse or other home services: No Alcohol intake: never Comment: Pt low fall risk Patient Tobacco Use Status: Former Tobacco user service: No Current occupational status: retired Office Procedures AMB Capsule Endoscopy Procedure Notes: Capsule endoscopy date of service: 04/23/23 Indication: Anemia Findings: Mild erythema in stomach, no active bleeding sites seen. Duodenum entered at 16 mins, mucosa well visualized, no bleeding noted or polyps, masses, tumours. Cecum reached at 1hr 40, again no bleeding points noted in the few portions of colon seen Conclusion: Mild gastritis, otherwise normal study. Capsule Endoscopy CPT Code: 75869 - Capsule Endoscopy Assessment & Plan Assessment & Plan (1) Iron deficiency anemia: Code(s): D50.9 - Iron deficiency anemia, unspecified Plan see report Coding Level of Care Code Procedure Only Diagnoses Iron deficiency anemia D50.9 CPT Codes AMB Capsule Endoscopy - Capsule Endoscopy CPT Code: 51360 - Capsule Endoscopy ([id number])
== END 2023-04-23 08:41 | disposition home or self-care (01) ==
PROVIDERS: PCP Internal Medicine; Visit Provider Internal Medicine Gastroenterology
DX: D50.9 Iron deficiency anemia, unspecified (principal)
CPT/HCPCS: 91110

== ENCOUNTER → 2023-04-23 08:18 | Outpatient (BNVA) | payer MEDICARE, SELFPAY | PROVIDERS: PCP Internal Medicine; Visit Provider Internal Medicine Gastroenterology | DX: D50.9 Iron deficiency anemia, unspecified (principal); K29.70 Gastritis, unspecified, without bleeding | CPT/HCPCS: 91110 ==

== ENCOUNTER 2023-05-07 08:54 | Outpatient (REF) | payer MEDICARE, SELFPAY ==
[2023-05-07 10:34] LABS: MANUAL DIFF FLAG NO
[2023-05-07 10:37] LABS: Basophils Absolute Auto 0.1 X10*3/uL (0.0-0.2); Basophils Percent Auto 0.9 % (0-2); Eosinophils Absolute Auto 0.2 X10*3/uL (0.0-0.4); Eosinophils Percent Auto 4.1 % (0-4); Hematocrit 35.1 % (37.0-47.0); Hemoglobin 10.3 g/dl (12.0-16.0); Imm Gran Abs Auto 0.01 X10*3/uL (0.00-0.03); Imm Gran Pct Auto 0.2 % (0.0-0.4); Lymphocytes Percent Auto 36.7 % (20-40); Mean Corpuscular HGB Conc 29.3 g/dl (31.0-35.0); Mean Corpuscular Volume 81.8 fL (80.0-98.0); Monocytes Absolute Auto 0.5 X10*3/uL (0.1-1.2); Monocytes Percent Auto 9.8 % (2-11); Neutrophils Absolute Auto 2.6 x10*3/uL (2.0-8.3); Neutrophils Percent Auto 48.3 % (45-73); Platelet Count 332 X10*3/uL (160-400); Red Blood Count 4.29 X10*6/uL (4.20-5.50); Red Cell Distribution Width 18.9 % (11.0-16.0); White Blood Count 5.4 X10*3/uL (4.8-10.8)
== END 2023-05-07 08:55 | disposition home or self-care (01) ==
LOC: HO.10HDL 08:54
PROVIDERS: Referring Provider Internal Medicine; Visit Provider Student in an Organized Health Care Education/Training Program
DX: K92.2 Gastrointestinal hemorrhage, unspecified (principal); D50.0 Iron deficiency anemia secondary to blood loss (chronic)
CPT/HCPCS: 36415; 85025

== ENCOUNTER 2023-05-31 09:56 | Outpatient (REF) | payer MEDICARE, SELFPAY ==
[2023-05-31 10:53] LABS: MANUAL DIFF FLAG NO
[2023-05-31 10:55] LABS: Basophils Absolute Auto 0.1 X10*3/uL (0.0-0.2); Basophils Percent Auto 0.9 % (0-2); Eosinophils Absolute Auto 0.1 X10*3/uL (0.0-0.4); Eosinophils Percent Auto 2.6 % (0-4); Hematocrit 32.4 % (37.0-47.0); Hemoglobin 9.9 g/dl (12.0-16.0); Imm Gran Abs Auto 0.02 X10*3/uL (0.00-0.03); Imm Gran Pct Auto 0.4 % (0.0-0.4); Lymphocytes Absolute Auto 1.1 X10*3/uL (1.2-4.9); Lymphocytes Percent Auto 20.4 % (20-40); Mean Corpuscular HGB Conc 30.6 g/dl (31.0-35.0); Mean Corpuscular Hemoglobin 25.1 pg (27.0-33.0); Mean Corpuscular Volume 82.2 fL (80.0-98.0); Mean Platelet Volume 10.3 fL (9.4-12.3); Monocytes Absolute Auto 0.5 X10*3/uL (0.1-1.2); Monocytes Percent Auto 8.9 % (2-11); Neutrophils Absolute Auto 3.6 x10*3/uL (2.0-8.3); Neutrophils Percent Auto 66.8 % (45-73); Platelet Count 363 X10*3/uL (160-400); Red Blood Count 3.94 X10*6/uL (4.20-5.50); Red Cell Distribution Width 17.4 % (11.0-16.0); White Blood Count 5.4 X10*3/uL (4.8-10.8)
[2023-05-31 11:15] LABS: Iron 17 mcg/dL (30-160); Percent Iron Saturation 9 % (15-50); Total Iron Binding Capacity 189 mcg/dL (228-428); Unsaturated Iron Binding 172 ug/dL
[2023-05-31 11:31] LABS: Ferritin 120 ng/mL (10-250)
== END 2023-05-31 09:57 | disposition home or self-care (01) ==
LOC: HO.10HDL 09:56
PROVIDERS: PCP Internal Medicine; Visit Provider Internal Medicine
DX: D50.0 Iron deficiency anemia secondary to blood loss (chronic) (principal)
CPT/HCPCS: 36415; 82728; 83540; 85025

== ENCOUNTER 2023-06-25 14:01 | Outpatient (REF) | payer MEDICARE, SELFPAY ==
[2023-06-25 14:10] LABS: MANUAL DIFF FLAG NO
[2023-06-25 15:24] LABS: Basophils Percent Auto 0.8 % (0-2); Eosinophils Absolute Auto 0.1 X10*3/uL (0.0-0.4); Eosinophils Percent Auto 1.9 % (0-4); Hematocrit 31.5 % (37.0-47.0); Hemoglobin 9.3 g/dl (12.0-16.0); Imm Gran Abs Auto 0.02 X10*3/uL (0.00-0.03); Imm Gran Pct Auto 0.4 % (0.0-0.4); Lymphocytes Absolute Auto 1.6 X10*3/uL (1.2-4.9); Mean Corpuscular HGB Conc 29.5 g/dl (31.0-35.0); Mean Corpuscular Volume 81.4 fL (80.0-98.0); Mean Platelet Volume 10.2 fL (9.4-12.3); Monocytes Absolute Auto 0.5 X10*3/uL (0.1-1.2); Monocytes Percent Auto 9.7 % (2-11); Neutrophils Absolute Auto 2.7 x10*3/uL (2.0-8.3); Neutrophils Percent Auto 55.2 % (45-73); Platelet Count 449 X10*3/uL (160-400); Red Blood Count 3.87 X10*6/uL (4.20-5.50); Red Cell Distribution Width 16.6 % (11.0-16.0); White Blood Count 4.9 X10*3/uL (4.8-10.8)
== END 2023-06-25 14:02 | disposition home or self-care (01) ==
LOC: HO.LAB 14:01
PROVIDERS: PCP Internal Medicine; Referring Provider Internal Medicine; Visit Provider Internal Medicine
DX: D50.9 Iron deficiency anemia, unspecified (principal)
CPT/HCPCS: 36415; 85025

== ENCOUNTER 2023-07-12 11:45 | Outpatient (REF) | payer MEDICARE, SELFPAY ==
[2023-07-12 17:45] LABS: Appearance Urine Cloudy; Color Urine Yellow; Glucose Urine UA Negative (Negative); Leukocyte Esterase Urine Large (3+) (Negative); Nitrite Urine Negative (Negative); PH 5.5 (5.0-9.0); Specific Gravity - Urine 1.015 (1.005-1.025); UMIC TRIGGER UACC YES; Urine Blood Trace (Negative); Urine Ketones Negative (Negative); Urine Protein Trace mg/dL (Neg-Trace)
[2023-07-12 17:50] LABS: Bacteria Urine 4+ (None Seen); RBC Urine 0-2 /HPF (0-2); Squamous Epithelial Cell Urine 0-2 /HPF (0-2); UACC Culture Trigger YES; WBC Urine >50 /HPF (0-5)
== END 2023-07-12 11:46 | disposition home or self-care (01) ==
LOC: HO.MANLNP 11:45
PROVIDERS: Visit Provider Internal Medicine
DX: N39.0 Urinary tract infection, site not specified (principal)
CPT/HCPCS: 81001; 87086; 87088; 87186

== ENCOUNTER 2023-07-14 11:54 | Outpatient (REF) | payer MEDICARE, SELFPAY ==
[2023-07-14 11:57] VITALS: BP 139/63; PULSE 73; RESP 16; TEMP 36.9; O2SAT 100
[2023-07-14] MEDS: Iron Sucrose Complex 200 MG in 0.9 % Sodium Chloride 100 ML 440 MG IV (12:06)
== END 2023-07-14 11:55 | disposition home or self-care (01) ==
LOC: HO.MDS 11:54
PROVIDERS: Visit Provider Internal Medicine Medical Oncology
DX: D50.9 Iron deficiency anemia, unspecified (principal)
CPT/HCPCS: 96365; J1756

== ENCOUNTER 2023-07-16 10:27 | Emergency (ER) | payer MEDICARE, SELFPAY ==
--- NOTE | ~2023-07-16 | XR_ITS ---
EXAMINATION: XR CHEST CLINICAL INFORMATION: Shortness of breath and leg swelling. COMPARISON: 12/12/2022 TECHNIQUE: 2 views of the chest were obtained. FINDINGS: Lungs are well expanded. No acute pulmonary abnormality. No evidence of cephalization of pulmonary venous flow, interstitial edema or pleural effusion. Cardiac silhouette has normal size and contour. Mitral valve annulus is calcified. Small hiatal hernia is noted. There is chronic eventration of the anterior right hemidiaphragm. Bones appear to be diffusely osteopenic. Mild spondylosis of the thoracic spine. Multiple surgical clips are present within the right axillary region and right upper quadrant of the abdomen. XR/XR chest 2V IMPRESSION: No acute cardiopulmonary disease.
--- NOTE | ~2023-07-16 | US_ITS ---
EXAMINATION: US VENOUS ULTRASOUND WITH DOPPLER LOWER EXTREMITY, LEFT CLINICAL INFORMATION: Left flexible swelling COMPARISON: None available. TECHNIQUE: Ultrasound of the deep veins is performed from the hip to the calf with compression sonography and color and pulse Doppler assessment. Spectral analysis with color-flow imaging is performed. FINDINGS: There is normal venous compression and respiratory variation and augmented flow. The visualized common femoral vein, superficial femoral vein, profunda femoral vein, popliteal vein, and the trifurcation region shows no evidence of deep venous thrombosis. There is no significant popliteal fossa cyst. There is a left groin lymph node measuring 2.7 x 1.0 x 1.3 cm. There is moderate edema in the left calf. If the patient's symptoms persist, followup ultrasound in 5 days 7 days might be of value to exclude proximal propagation from a non-visualized calf vein. US/US venous duplex LE IMPRESSION: There is no evidence of DVT left lower extremity.
[2023-07-16 10:37] VITALS: BP 157/59; PULSE 76; RESP 20; TEMP 36.6; O2SAT 100; BMI 24.2
[2023-07-16 11:56] VITALS: BP 127/64; PULSE 71; RESP 20; TEMP 36.7; O2SAT 99
--- NOTE | 2023-07-16 12:04 | PC.NURSE ---
pt is alert and oriented, skin pwd, respirations even and unlabored, pt reports noticing that her left leg is swollen and some pain with movement about 2/10, leg is visibly swollen, no redness noticed at this time. pt awaiting ultra sound at this time
[2023-07-16 13:35] LABS: MANUAL DIFF FLAG NO
[2023-07-16 13:39] LABS: Basophils Percent Auto 0.7 % (0-2); Eosinophils Absolute Auto 0.1 X10*3/uL (0.0-0.4); Eosinophils Percent Auto 2.9 % (0-4); Hematocrit 29.9 % (37.0-47.0); Hemoglobin 9.2 g/dl (12.0-16.0); Imm Gran Abs Auto 0.02 X10*3/uL (0.00-0.03); Imm Gran Pct Auto 0.4 % (0.0-0.4); Lymphocytes Percent Auto 22.4 % (20-40); Mean Corpuscular HGB Conc 30.8 g/dl (31.0-35.0); Mean Corpuscular Hemoglobin 24.9 pg (27.0-33.0); Mean Platelet Volume 9.6 fL (9.4-12.3); Monocytes Absolute Auto 0.4 X10*3/uL (0.1-1.2); Monocytes Percent Auto 9.4 % (2-11); Neutrophils Absolute Auto 2.9 x10*3/uL (2.0-8.3); Neutrophils Percent Auto 64.2 % (45-73); Platelet Count 326 X10*3/uL (160-400); Red Blood Count 3.69 X10*6/uL (4.20-5.50); Red Cell Distribution Width 16.4 % (11.0-16.0); White Blood Count 4.5 X10*3/uL (4.8-10.8)
[2023-07-16 13:56] LABS: Alanine Aminotransferase 10 U/L (0-31); Albumin Level 3.2 g/dL (3.5-5.0); Alkaline Phosphatase 161 U/L (39-117); Anion Gap 14 (12-20); Aspartate Amino Transferase 13 U/L (5-31); Bilirubin Direct < 0.2 mg/dL (0.0-0.5); Bilirubin Total 0.2 mg/dL (0.0-1.0); Blood Urea Nitrogen 18 mg/dL (9-16); Calcium 9.4 mg/dL (8.4-10.2); Carbon Dioxide 23 mmol/L (22-29); Chloride 106 mmol/L (96-108); Creatinine Clr Calc Pharmacy 25.6; Estimated Glomerular Filt Rate 36; Glucose Random 91 mg/dL (60-115); Magnesium 1.8 mg/dL (1.6-2.6); Potassium 4.8 mmol/L (3.3-5.1); Sodium 138 mmol/L (135-145); Total Protein 7.6 g/dL (6.5-8.0)
[2023-07-16 14:01] LABS: B Type Natriuretic Peptide 477 pg/mL (<100)
--- NOTE | 2023-07-16 14:12 | ECG_ITS ---
Test Reason : dyspnea Blood Pressure : / mmHG Vent. Rate : 070 BPM Atrial Rate : 070 BPM P-R Int : 182 ms QRS Dur : 078 ms QT Int : 404 ms P-R-T Axes : 050 015 028 degrees QTc Int : 436 ms Normal sinus rhythm Normal ECG When compared with ECG of 05-APR-2023 20:52, No significant change was found Referred By: Ann Marie Ibarra Electronically Signed By:FUNMILAYO PAYTON
--- NOTE | 2023-07-16 14:14 | ED_ITS ---
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 Patient reporting pain and throbbing sensation in her posterior calf. Patient denies any recent trauma, injury or heavy lifting. She does report that she had an ovarian mass removed last year. She also reports that she gets iron infusions as well as blood transfusions due to anemia. She denies history of blood clots in the past. She has not on blood thinners. No recent trauma or injury to her leg. Denies history of similar symptoms. She denies any chest pain, shortness of breath, abdominal pain, nausea, vomiting or diarrhea. She is otherwise feeling well. No other complaints or concerns at this time. MD complaint: Left lower leg swelling Onset (ago): day(s) Radiation: non-radiation Pain Consistency: constant Relieving factors: none Exacerbating factors: none Associated symptoms: denies other symptoms Treatments prior to arrival: none Related Data Home Medications Medication Instructions Recorded Confirmed fluoxetine 20 mg capsule 1 cap PO BEDTIME 04/04/20 04/05/23 latanoprost 0.005 % eye drops 1 drp ophthalmic (eye) BEDTIME 04/04/20 04/05/23 sumatriptan succinate 100 mg tablet 1 tab PO DAILY MRX1 PRN Migraine 04/04/20 04/05/23 Headache ferrous sulfate 325 mg (65 mg 325 mg PO BID 07/02/20 04/05/23 iron) tablet (iron) multivitamin 1 tab PO BEDTIME 12/12/22 04/05/23 mirabegron 25 mg tablet,extended 25 mg PO DAILY 01/11/23 04/05/23 release 24 hr (Myrbetriq) Previous Rx's Medication Instructions Recorded omeprazole 20 mg capsule,delayed 20 mg PO BID@0630,1630 #60 caps 12/17/22 release sucralfate 100 mg/mL oral 1 g (10 mL) PO QIDACHS #420 mL 12/17/22 suspension Allergies Allergy/AdvReac Type Severity Reaction Status Date / Time sulfamethoxazole Allergy Severe rash/itchin Verified 07/16/23 10:37 [From Bactrim] g trimethoprim [From Bactrim] Allergy Severe rash/itchin Verified 07/16/23 10:37 g Penicillins Allergy Mild RASH Verified 07/16/23 10:37 pregabalin [From Lyrica] Allergy Mild Rash Verified 07/16/23 10:37 Atvgzzg-DJQ-UfQ Reductase Allergy Mild RASH Verified 07/16/23 10:37 Inhibitor [Statins: Hmg-Coa Reductase Inhibito] levofloxacin [From LEVAQUIN] Allergy Unknown RED RASH Verified 07/16/23 10:37 gabapentin Allergy Unknown Verified 07/16/23 10:37 Review of Systems 2 Review of Systems: Yes all other systems are reviewed and are negative Constitutional: Constitutional: Reports as per [facility] Past Medical History Attestation statement: The following information was validated with the patient. Medical History Iron deficiency anemia Chronic upper gastrointestinal bleeding Migraine Acute anemia Cataracts, bilateral FH: total knee replacement Cholecystectomy planned Diverticulitis Hx of breast cancer Iron deficiency anemia Surgical History History of colostomy reversal H/O total knee replacement H/O colonoscopy Cataract Family History Family History Sister Breast cancer Diabetes Mother Diabetes Social History Social History Household Members: Children Household Members Other:: 3 Housing: House Are you a primary direct care supervisor to a significant other at home: No Do you presently have visiting nurse or other home services: No Alcohol intake: never Comment: Pt low fall risk Patient Tobacco Use Status: Former Tobacco user Smoked in Last 30 Days: No Use of substances other than those prescribed or required for medical reasons: No Advance Directives: No Advance Directives Information Provided: No service: No Current occupational status: retired Physical Exam ED Vital Signs: Vital Signs - 24 hr 07/16/23 10:37 07/16/23 11:56 07/16/23 15:00 Temperature 98 F 98.0 F 97.7 F Pulse Rate 76 71 76 Respiratory Rate 20 20 16 Blood Pressure 157/59 H 127/64 139/68 Pulse Oximetry 100 99 100 Oxygen Delivery Method Room Air Room Air Room Air BMI result Body Mass Index 24.2 Const General: cooperative, comfortable and no acute distress Orientation/consciousness: patient oriented x3 Limitations: no limitations HENMT Head: Yes normal to inspection, Yes normocephalic and Yes atraumatic Ears: hearing grossly normal bilaterally General nose exam: Normal external nose present Face and sinus: Yes normal facial exam Mouth: Normal oral and palatal mucosa present, oropharynx normal and moist mucous membranes Throat: Yes posterior oropharynx normal Eyes General: appearance normal, both eyes and all related structures Eyelids: Yes eyelids normal Conjunctivae: conjunctivae normal Sclerae: sclerae normal Pupils: Equal, round and reactive pupils present EOM: EOMs intact bilaterally Neck Neck: Yes normal visual inspection, Yes full ROM and Yes no lymphadenopathy Lymphatic: no lymphadenopathy noted Chest Chest palpation & inspection: normal inspection of the chest Resp Effort & Inspection: normal respiratory effort and able to speak in complete sentences Auscultation: clear to auscultation bilaterally, no crackles, no rales, no rhonchi and no wheezes Cardio Rate: regular rate Rhythm: regular rhythm Heart sounds: S1 normal heart sound present and S2 normal heart sound present GI Inspection: Yes normal to inspection Skin General skin exam: no rashes or lesions noted Trauma: no lacerations or abrasions Wounds: no wounds Neuro General: patient oriented x3 and moves all extremities Cranial nerves: Yes Equal, round and reactive pupils present Extrem Other: 1+ pitting edema noted bilaterally. There is circumferential edema noted. General: Yes normal to inspection Right upper extremity: normal to inspection Left upper extremity: normal to inspection Right lower extremity: normal to inspection Left lower extremity: normal to inspection Course Reevaluation(s) Reevaluation #1: Given patient had pelvic mass removed 1 year ago, with lymph node swelling noted on ultrasound report, as well as elevated BNP of 477, I discussed this with my attending physician. Given patient is not short of breath or having any chest pain, further workup not indicated at this time. Chest x-ray still pending at this time. Patient remains to be comfortable. Time: 15:00 Reevaluation #2: Chest x-ray unremarkable. Discussed workup today with patient and grandson at bedside. Patient stable for discharge. Given vascular surgeon referral. Answered all questions. Patient stable for discharge Time: 15:45 Medical Decision Making Medical Decision Making [facility] Narrative: This is a 87-year-old female, with a history of breast cancer, who presents emergency department with complaints of atraumatic left leg pain, and swelling for the last 2 days. On arrival, patient mildly hypertensive at 157/59. Denies any chest pain, shortness of breath, dizziness, or blurred vision. Patient with 1+ pitting edema noted the left lower leg. Mild tenderness palpation along the calf. Will obtain ultrasound, basic labs, EKG and chest x-ray. Differential diagnoses include DVT, CHF, venous insufficiency, lymphedema. Less likely compartment syndrome, cellulitis. Vital signs stable, patient oxygen saturation within normal limits. She has not experiencing any chest pain. Differential Diagnosis Differential Diagnoses: The differential diagnosis associated with the presentation includes See above Admission/Observation Consideration of admission/observation: Escalation of care including admission/observation considered Escalation of care including admission/observation considered however given workup today not warranted at this time. Lab Data [facility] Lab Attestation statement: I reviewed the patient's lab results. No leukocytosis, normocytic anemia noted with H&H of 9.2/29.9. BNP 477, all other chemistry within normal limits. 07/16/23 13:30 07/16/23 13:30 Labs: Lab Results 07/16/23 Range/Units 13:30 WBC 4.5 L (4.8-10.8) X10*3/uL RBC 3.69 L (4.20-5.50) X10*6/uL Hgb 9.2 L (12.0-16.0) g/dl Hct 29.9 L (37.0-47.0) % MCV 81.0 (80.0-98.0) fL MCH 24.9 L (27.0-33.0) pg MCHC 30.8 L (31.0-35.0) g/dl RDW 16.4 H (11.0-16.0) % Plt Count 326 (160-400) X10*3/uL MPV 9.6 (9.4-12.3) fL Immature Gran % (Auto) 0.4 (0.0-0.4) % Neut % (Auto) 64.2 (45-73) % Lymph % (Auto) 22.4 (20-40) % Bremer % (Auto) 9.4 (2-11) % Eos % (Auto) 2.9 (0-4) % Baso % (Auto) 0.7 (0-2) % Lymph # (Auto) 1.0 L (1.2-4.9) X10*3/uL Bremer # (Auto) 0.4 (0.1-1.2) X10*3/uL Eos # (Auto) 0.1 (0.0-0.4) X10*3/uL Baso # (Auto) 0.0 (0.0-0.2) X10*3/uL Abs Immat Gran (auto) 0.02 (0.00-0.03) X10*3/uL Absolute Neuts (auto) 2.9 (2.0-8.3) x10*3/uL Absolute Nucleated RBC 0.000 (0.0-0.012) X10*3/uL Nucleated RBC % (auto) 0.0 (0.0-0.2) /100WBC Sodium 138 (135-145) mmol/L Potassium 4.8 (3.3-5.1) mmol/L Chloride 106 (96-108) mmol/L Carbon Dioxide 23 (22-29) mmol/L Anion Gap 14 (12-20) BUN 18 H (9-16) mg/dL Creatinine 1.39 (0.5-1.4) mg/dL Estim Creat Clear Calc 25.6 Estimated GFR 36 Random Glucose 91 (60-115) mg/dL Calcium 9.4 (8.4-10.2) mg/dL Magnesium 1.8 (1.6-2.6) mg/dL Total Bilirubin 0.2 (0.0-1.0) mg/dL Direct Bilirubin < 0.2 (0.0-0.5) mg/dL AST 13 (5-31) U/L ALT 10 (0-31) U/L Alkaline Phosphatase 161 H (39-117) U/L Troponin I High Sens < 2.7 (<3.5-17.0) ng/L B-Natriuretic Peptide 477 H (<100) pg/mL Total Protein 7.6 (6.5-8.0) g/dL Albumin 3.2 L (3.5-5.0) g/dL Radiology Impression Discussion of test interpretation with radiology: I have reviewed the radiologist's reading. Radiologist Impression: EXAMINATION: US VENOUS ULTRASOUND WITH DOPPLER LOWER EXTREMITY, LEFT CLINICAL INFORMATION: Left flexible swelling COMPARISON: None available. TECHNIQUE: Ultrasound of the deep veins is performed from the hip to the calf with compression sonography and color and pulse Doppler assessment. Spectral analysis with color-flow imaging is performed. FINDINGS: There is normal venous compression and respiratory variation and augmented flow. The visualized common femoral vein, superficial femoral vein, profunda femoral vein, popliteal vein, and the trifurcation region shows no evidence of deep venous thrombosis. There is no significant popliteal fossa cyst. There is a left groin lymph node measuring 2.7 x 1.0 x 1.3 cm. There is moderate edema in the left calf. If the patient's symptoms persist, followup ultrasound in 5 days 7 days might be of value to exclude proximal propagation from a non-visualized calf vein. US/US venous duplex LE LT IMPRESSION: There is no evidence of DVT left lower extremity. Dictated By: Sonido Nunez MD Discharge Plan Discharge Clinical Impression: Leg edema, left Patient Disposition: Home, Self-Care Instructions: Leg Edema (ED) Additional Instructions: You were seen in the emergency department due to left lower leg swelling. Needs follow-up with your primary care physician regarding this visit. Call today to make an appointment. Your ultrasound did not show any blood clots. It is very important to keep your leg wrapped, you may use compression stockings or [place] wraps to help facilitate with this. Please keep legs elevated. You may also follow-up with the vascular surgeon, Dr. Courtney. If any new or worsening symptoms occur including but not limited to chest pain, shortness of breath, please return for re-evaluation. Prescriptions: No Action latanoprost 0.005 % drops 1 drp ophthalmic (eye) BEDTIME sumatriptan succinate 100 mg tablet 1 tab PO DAILY MRX1 PRN (Reason: Migraine Headache) Rx Instructions: MRX1 after 2 hours fluoxetine 20 mg capsule 1 cap PO BEDTIME ferrous sulfate [iron] 325 mg (65 mg iron) Tablet 325 mg PO BID multivitamin Tablet 1 tab PO BEDTIME sucralfate 100 mg/mL Suspension 1 g PO QIDACHS Qty: 420 0RF omeprazole 20 mg Capsule,Delayed Release(Dr/Ec) 20 mg PO BID@0630,1630 Qty: 60 0RF Myrbetriq 25 mg tablet extended release 24 hr 25 mg PO DAILY Referrals: [facility] [place] Vascular Services [Provider Group]
[2023-07-16 15:00] VITALS: BP 139/68; PULSE 76; RESP 16; TEMP 36.5; O2SAT 100
[2023-07-16 15:02] LABS: Troponin-I High Sensitivity < 2.7 ng/L (<3.5-17.0)
[2023-07-16 15:56] VITALS: BP 142/84; PULSE 84; RESP 17; TEMP 36.8; O2SAT 97
== END 2023-07-16 15:58 | disposition home or self-care (01) ==
PROVIDERS: Physician Assistant Medical; Emergency Provider Emergency Medicine; PCP Internal Medicine
DX: R60.0 Localized edema (principal); D50.0 Iron deficiency anemia secondary to blood loss (chronic); K31.811 Angiodysplasia of stomach and duodenum with bleeding
CPT/HCPCS: 36415; 71046; 80048; 80076; 83735; 83880; 84484; 85025; 93005; 93971; 99284

== ENCOUNTER → 2023-07-16 14:12 | Outpatient (BNV) | payer MEDICARE, SELFPAY | PROVIDERS: Emergency Provider Emergency Medicine; PCP Internal Medicine; Visit Provider Internal Medicine | DX: R06.00 Dyspnea, unspecified (principal) | CPT/HCPCS: 93010 ==

== ENCOUNTER 2023-07-21 14:28 | Outpatient (REF) | payer MEDICARE, SELFPAY ==
[2023-07-21 14:29] VITALS: BP 114/53; PULSE 74; RESP 20; TEMP 37.2; O2SAT 99
[2023-07-21] MEDS: Iron Sucrose Complex 200 MG in 0.9 % Sodium Chloride 100 ML 440 MG IV (14:36)
== END 2023-07-21 14:29 | disposition home or self-care (01) ==
LOC: HO.MDS 14:28
PROVIDERS: Visit Provider Internal Medicine Medical Oncology
DX: D50.9 Iron deficiency anemia, unspecified (principal)
CPT/HCPCS: 96365; J1756

== ENCOUNTER 2023-08-06 13:20 | Outpatient (REF) | payer MEDICARE, SELFPAY | END 2023-08-06 13:21 | disposition home or self-care (01) | LOC: HO.LNP 13:20 | PROVIDERS: Visit Provider Internal Medicine | DX: N39.0 Urinary tract infection, site not specified (principal) | CPT/HCPCS: 87086 ==

== ENCOUNTER 2023-08-13 12:35 | Outpatient (REF) | payer MEDICARE, SELFPAY | END 2023-08-13 12:36 | disposition home or self-care (01) | LOC: HO.MANLNP 12:35 | PROVIDERS: Visit Provider Internal Medicine | DX: N39.0 Urinary tract infection, site not specified (principal) | CPT/HCPCS: 87086 ==

== ENCOUNTER 2023-09-01 13:00 | Outpatient (RCR) | payer MEDICARE, SELFPAY ==
[2023-07-28 14:24] VITALS: BP 128/63; PULSE 78; RESP 16; TEMP 36.4; O2SAT 99
[2023-07-28] MEDS: Iron Sucrose Complex 200 MG in 0.9 % Sodium Chloride 100 ML 440 MG IV (14:32)
[2023-08-04 14:17] VITALS: BP 126/60; PULSE 75; RESP 14; TEMP 36.7; O2SAT 100
[2023-08-04] MEDS: Iron Sucrose Complex 200 MG in 0.9 % Sodium Chloride 100 ML 440 MG IV (14:23)
[2023-08-04 14:55] LABS: MANUAL DIFF FLAG NO
[2023-08-04 14:58] LABS: Basophils Percent Auto 0.7 % (0-2); Eosinophils Absolute Auto 0.1 X10*3/uL (0.0-0.4); Eosinophils Percent Auto 2.1 % (0-4); Hematocrit 30.2 % (37.0-47.0); Hemoglobin 9.1 g/dl (12.0-16.0); Imm Gran Abs Auto 0.02 X10*3/uL (0.00-0.03); Imm Gran Pct Auto 0.4 % (0.0-0.4); Lymphocytes Absolute Auto 1.3 X10*3/uL (1.2-4.9); Lymphocytes Percent Auto 24.8 % (20-40); Mean Corpuscular HGB Conc 30.1 g/dl (31.0-35.0); Mean Corpuscular Hemoglobin 25.3 pg (27.0-33.0); Mean Corpuscular Volume 84.1 fL (80.0-98.0); Mean Platelet Volume 9.6 fL (9.4-12.3); Monocytes Absolute Auto 0.5 X10*3/uL (0.1-1.2); Monocytes Percent Auto 9.9 % (2-11); Neutrophils Absolute Auto 3.3 x10*3/uL (2.0-8.3); Neutrophils Percent Auto 62.1 % (45-73); Platelet Count 286 X10*3/uL (160-400); Red Blood Count 3.59 X10*6/uL (4.20-5.50); Red Cell Distribution Width 17.6 % (11.0-16.0); White Blood Count 5.4 X10*3/uL (4.8-10.8)
[2023-08-04 17:05] LABS: Ferritin 462 ng/mL (10-250)
[2023-08-11 12:48] VITALS: BP 106/60; PULSE 88; RESP 16; TEMP 36.6; O2SAT 99
[2023-08-11] MEDS: Iron Sucrose Complex 200 MG in 0.9 % Sodium Chloride 100 ML 440 MG IV (12:58)
[2023-08-11] MEDS: 0.9 % Sodium Chloride Flush 10 ML SYRINGE 5 ML IVFLUSH (12:58)
[2023-08-18 13:23] VITALS: BP 114/59; PULSE 76; RESP 20; TEMP 36.3; O2SAT 100
[2023-08-18] MEDS: Iron Sucrose Complex 200 MG in 0.9 % Sodium Chloride 100 ML 440 MG IV (13:33)
[2023-08-25 12:47] VITALS: BP 122/54; PULSE 78; RESP 16; TEMP 37.2; O2SAT 100
[2023-08-25] MEDS: 0.9 % Sodium Chloride Flush 10 ML SYRINGE 5 ML IVFLUSH (12:56)
[2023-08-25] MEDS: Iron Sucrose Complex 200 MG in 0.9 % Sodium Chloride 100 ML 440 MG IV (12:56)
[2023-09-01 13:17] VITALS: BP 120/62; PULSE 73; RESP 16; TEMP 36.4; O2SAT 100
[2023-09-01] MEDS: Iron Sucrose Complex 200 MG in 0.9 % Sodium Chloride 100 ML 440 MG IV (13:25)
[2023-09-01 13:48] LABS: MANUAL DIFF FLAG NO
[2023-09-01 13:50] LABS: Basophils Percent Auto 0.5 % (0-2); Eosinophils Absolute Auto 0.1 X10*3/uL (0.0-0.4); Eosinophils Percent Auto 1.6 % (0-4); Hematocrit 31.2 % (37.0-47.0); Hemoglobin 9.5 g/dl (12.0-16.0); Lymphocytes Percent Auto 17.7 % (20-40); Mean Corpuscular HGB Conc 30.4 g/dl (31.0-35.0); Mean Corpuscular Hemoglobin 26.5 pg (27.0-33.0); Mean Corpuscular Volume 86.9 fL (80.0-98.0); Mean Platelet Volume 9.6 fL (9.4-12.3); Monocytes Absolute Auto 0.5 X10*3/uL (0.1-1.2); Monocytes Percent Auto 8.9 % (2-11); Neutrophils Absolute Auto 4.1 x10*3/uL (2.0-8.3); Neutrophils Percent Auto 71.3 % (45-73); Platelet Count 313 X10*3/uL (160-400); Red Blood Count 3.59 X10*6/uL (4.20-5.50); Red Cell Distribution Width 18.4 % (11.0-16.0); White Blood Count 5.7 X10*3/uL (4.8-10.8)
[2023-09-01 14:28] LABS: Ferritin 909 ng/mL (10-250)
== END 2023-09-01 14:44 | disposition home or self-care (01) ==
LOC: HO.INF 13:00
PROVIDERS: Visit Provider Internal Medicine Medical Oncology
DX: D50.9 Iron deficiency anemia, unspecified (principal)
CPT/HCPCS: 36415; 82728; 85025; 96374; J1756

== ENCOUNTER 2023-09-27 11:56 | Outpatient (REF) | payer MEDICARE, SELFPAY ==
[2023-09-27 17:50] LABS: Appearance Urine Cloudy; Color Urine Yellow; Glucose Urine UA Negative (Negative); Leukocyte Esterase Urine Moderate (2+) (Negative); Nitrite Urine Negative (Negative); PH 5.5 (5.0-9.0); Specific Gravity - Urine 1.015 (1.005-1.025); UMIC TRIGGER UACC YES; Urine Blood Trace (Negative); Urine Ketones Negative (Negative); Urine Protein Trace mg/dL (Neg-Trace)
[2023-09-27 18:17] LABS: Bacteria Urine 4+ (None Seen); RBC Urine 0-2 /HPF (0-2); Squamous Epithelial Cell Urine 0-2 /HPF (0-2); UACC Culture Trigger YES; WBC Urine >50 /HPF (0-5)
== END 2023-09-27 11:57 | disposition home or self-care (01) ==
LOC: HO.MANLDS 11:56
PROVIDERS: Visit Provider Internal Medicine
DX: R30.0 Dysuria (principal)
CPT/HCPCS: 81001; 87086; 87088; 87186

== ENCOUNTER 2023-10-11 10:47 | Outpatient (REF) | payer MEDICARE, SELFPAY ==
[2023-10-11 17:43] LABS: Appearance Urine Turbid; Color Urine Yellow; Glucose Urine UA Negative (Negative); Leukocyte Esterase Urine Large (3+) (Negative); Nitrite Urine Negative (Negative); UMIC TRIGGER UACC YES; Urine Blood Trace (Negative); Urine Ketones Negative (Negative); Urine Protein 30 (1+) mg/dL (Neg-Trace)
[2023-10-11 17:52] LABS: Bacteria Urine 4+ (None Seen); RBC Urine 0-2 /HPF (0-2); Squamous Epithelial Cell Urine 0-2 /HPF (0-2); UACC Culture Trigger YES; WBC Urine >50 /HPF (0-5)
== END 2023-10-11 10:48 | disposition home or self-care (01) ==
LOC: HO.MANLDS 10:47
PROVIDERS: Visit Provider Internal Medicine
DX: R30.0 Dysuria (principal)
CPT/HCPCS: 81001; 87086; 87088; 87186

== ENCOUNTER 2023-10-27 11:14 | Outpatient (AMB) | payer MEDICARE, SELFPAY ==
--- NOTE | 2023-10-27 11:15 | A.OFFVIS_ITS ---
Vital Signs 10/27/23 11:32 Height 5 ft 5 in Weight 147 lb BMI 24.5 Pulse 77 Pulse Source Pulse Oximeter Temp 98.5 F Temp Source Oral Pulse Oximetry (%) 99 Oxygen Delivery Method Room Air Intake Visit Reasons: reff su spectrum betalactamase klebsiella Allergies sulfamethoxazole [From Bactrim] Allergy (Severe, Verified 10/27/23 11:18) rash/itching trimethoprim [From Bactrim] Allergy (Severe, Verified 10/27/23 11:18) rash/itching Penicillins Allergy (Mild, Verified 10/27/23 11:18) RASH pregabalin [From Lyrica] Allergy (Mild, Verified 10/27/23 11:18) Rash Aozfcpk-ZHU-NzD Reductase Inhibitor [Statins: Hmg-Coa Reductase Inhibito] Allergy (Mild, Verified 10/27/23 11:18) RASH levofloxacin [From LEVAQUIN] Allergy (Unknown, Verified 10/27/23 11:18) RED RASH gabapentin Allergy (Verified 10/27/23 11:18) Unknown HPI HPI reff su spectrum betalactamase klebsiella: Details: She is referral from Dr Hameed for infection caused by ESBL Klebsiella pneumonia urine. She reports multiple symptomatic bouts of chills when urinating as well as frequency of urination. She has also times when symptomatic when she urinates small amount every 1 1/2 hours. She comes with full set of records and shows urinalysis positive for large LE and bacteria and appears turbid on 07/11, 08/30,09/26 On 09/26 organisms are Klebsiella pneumonia sensitive to CTX and Gentamicin and intermediate to Levaquin. She has resistance to Ampicillin as well as nitrofurantoin and Sulfa. 08/12 urine is no growth. 08/05 urine is 10,000 to 50,000 mixed clarence,contamination. 07/11 Klebsiella pneumonia same except sensitive to Levaquin and intermediate to Macrodantin. 10/10 urine shows Klebsiella pneumonia with intermediate to Levaquin and Macrobid and resistant to Bactrim and sensitive to Ceftriaxone and Gentamicin. She was prescribed Keflex 500 mg po qid on 10/13 and felt better soon after started and still feels well now except she has chronic frequency with small amounts even when not symptomatic for UTI. She says intravaginal estrogen didnt help much so stopped it. She denies episodes of sepsis or hospitalization for UTI., Her allergy to penicillin is rash when her daughter was born 60 years ago. She is not sure about sulfa allergy. She said she had streaking up arm when given IV Levaquin. She has creatinine 1.30 CT abdomen and pelvis 05/18/2022 shows bilateral benign renal cysts. [facility] Medical History (Updated 10/27/23 @ 16:43 by Juliana Darnell MD) Recurrent UTI Iron deficiency anemia Chronic upper gastrointestinal bleeding Migraine Acute anemia Cataracts, bilateral FH: total knee replacement Cholecystectomy planned Diverticulitis Hx of breast cancer Iron deficiency anemia Surgical History History of colostomy reversal H/O total knee replacement H/O colonoscopy Cataract Family History Sister Breast cancer Diabetes Mother Diabetes Social History Household Members: Children Household Members Other:: 3 Housing: House Are you a primary dialysis patient care technician to a significant other at home: No Do you presently have visiting nurse or other home services: No Alcohol intake: never Comment: Pt low fall risk Patient Tobacco Use Status: Former Tobacco user service: No Current occupational status: retired Review of Systems Const All systems reviewed & are unremarkable except as noted in HPI and below Physical Exam Vital Signs: Last Vital Signs Temp 98.5 F 10/27/23 11:32 Pulse 77 10/27/23 11:32 Pulse Ox 99 10/27/23 11:32 Oxygen Delivery Method Room Air 10/27/23 11:32 BMI result Body Mass Index 24.5 Const General: cooperative Orientation/consciousness: patient oriented x3 HEENT Head: Yes normal to inspection Mouth: Normal oral and palatal mucosa present Eyes General: appearance normal, both eyes and all related structures Pupils: Equal, round and reactive pupils present Resp Effort & Inspection: normal respiratory effort Cardio Rate: regular rate Rhythm: regular rhythm GI Palpation (GI): Soft to palpation and nontender General: Yes no CVA tenderness Back/Spine/Pelvis Back: no CVA tenderness Skin General skin exam: no rashes or lesions noted Neuro General: patient oriented x3 Cranial nerves: Yes CN's II-XII intact bilaterally and Yes Equal, round and reactive pupils present Extrem General: Yes normal to inspection Psych Appearance: grossly normal Assessment & Plan Assessment & Plan (1) Recurrent UTI: Comment: She has recurrent symptomatic UTI and is likely colonized with Klebsiella pneumonia. Frequent urination with small amounts when not symptomatic for UTI is concerning for interstitial cystitis or other bladder dysfunction beside infection. She may benefit from antibiotic prophylaxis with cephalexin although can become resistant hasnt so far. Doxycycline although not tested can also be used. Estrogen hasnt seemed to help ,but can try to acidify urine as well. Code(s): N39.0 - Urinary tract infection, site not specified Category: Medical Plan: Po Keflex 500 mg nightly, 6 months ordered. Methenamine 1 g daily for acidification, 6 months ordered. Consider Urology evaluation to see if mechanical or neurologic bladder dysfunction. See in six months Medications: New cephalexin 500 mg PO DAILY 30 caps 5RF 30 days methenamine hippurate 1 g PO DAILY 30 tabs 5RF 30 days Coding Level of Care Code New Pt Level 4 (11625) Diagnoses Recurrent UTI N39.0
[2023-10-27 11:32] VITALS: PULSE 77; TEMP 36.9; O2SAT 99; BMI 24.5
== END 2023-10-27 12:00 | disposition home or self-care (01) ==
LOC: HO.HID 11:14
PROVIDERS: PCP Internal Medicine; Visit Provider Internal Medicine
DX: N39.0 Urinary tract infection, site not specified (principal)
CPT/HCPCS: 99204

== ENCOUNTER → 2023-10-27 11:14 | Outpatient (BNVA) | payer MEDICARE, SELFPAY | PROVIDERS: PCP Internal Medicine; Visit Provider Internal Medicine | DX: N39.0 Urinary tract infection, site not specified (principal) | CPT/HCPCS: 99202 ==

== ENCOUNTER 2023-11-18 12:19 | Outpatient (REF) | payer MEDICARE, SELFPAY ==
[2023-11-19 12:27] LABS: OBS1 NEGATIVE (NEGATIVE); OBS2 NEGATIVE (NEGATIVE); OBS3 NEGATIVE (NEGATIVE)
[2023-11-19 12:28] LABS: OBS Int Ctl Valid YES; OBS Lot 50422 1L
== END 2023-11-18 12:20 | disposition home or self-care (01) ==
LOC: HO.LNP 12:19
PROVIDERS: Visit Provider Internal Medicine Medical Oncology
DX: D64.9 Anemia, unspecified (principal)
CPT/HCPCS: 82270

== ENCOUNTER 2023-12-21 13:30 | Outpatient (RCR) | payer MEDICARE, SELFPAY ==
[2023-10-25 13:56] VITALS: BP 114/54; PULSE 71; RESP 16; TEMP 37.1; O2SAT 100
[2023-10-25] MEDS: Iron Sucrose Complex 200 MG, Iron Sucrose Complex 100 MG in 0.9 % Sodium Chloride 250 ML 177 MG IV (14:12)
[2023-11-01 13:29] VITALS: BP 96/48; PULSE 72; RESP 16; TEMP 37.3; O2SAT 99
[2023-11-01] MEDS: Iron Sucrose Complex 200 MG, Iron Sucrose Complex 100 MG in 0.9 % Sodium Chloride 250 ML 177 MG IV (13:45)
[2023-11-01] MEDS: 0.9 % Sodium Chloride Flush 10 ML SYRINGE 5 ML IVFLUSH (15:24)
[2023-11-08 13:00] VITALS: BP 99/50; PULSE 85; RESP 16; TEMP 36.7; O2SAT 97
[2023-11-08] MEDS: Iron Sucrose Complex 200 MG, Iron Sucrose Complex 100 MG in 0.9 % Sodium Chloride 250 ML 177 MG IV (13:08)
[2023-11-15 13:51] VITALS: BP 126/52; PULSE 72; RESP 16; TEMP 36.5; O2SAT 100
--- NOTE | 2023-11-15 14:02 | HO.INF ---
cbc and ferritin drawn
[2023-11-15] MEDS: Iron Sucrose Complex 200 MG, Iron Sucrose Complex 100 MG in 0.9 % Sodium Chloride 250 ML 177 MG IV (14:25)
[2023-11-15 14:29] LABS: Hemoglobin 9.5 g/dl (12.0-16.0); Mean Corpuscular HGB Conc 29.7 g/dl (31.0-35.0); Mean Corpuscular Hemoglobin 27.2 pg (27.0-33.0); Mean Corpuscular Volume 91.7 fL (80.0-98.0); Mean Platelet Volume 9.8 fL (9.4-12.3); Platelet Count 301 X10*3/uL (160-400); Red Blood Count 3.49 X10*6/uL (4.20-5.50); Red Cell Distribution Width 15.9 % (11.0-16.0); White Blood Count 5.5 X10*3/uL (4.8-10.8)
--- NOTE | 2023-11-15 14:41 | HO.INF ---
lab results reported to dr. Hernadez
[2023-11-15 14:54] LABS: Ferritin 857 ng/mL (10-250)
[2023-11-22 13:27] VITALS: BP 117/54; PULSE 75; RESP 18; TEMP 36.9; O2SAT 99
[2023-11-22] MEDS: Iron Sucrose Complex 200 MG, Iron Sucrose Complex 100 MG in 0.9 % Sodium Chloride 250 ML 177 MG IV (13:44)
[2023-11-22] MEDS: 0.9 % Sodium Chloride Flush 10 ML SYRINGE 5 ML IVFLUSH (15:16)
[2023-11-29 13:30] VITALS: BP 105/52; PULSE 82; RESP 18; TEMP 36.4; O2SAT 97
[2023-11-29] MEDS: Iron Sucrose Complex 200 MG, Iron Sucrose Complex 100 MG in 0.9 % Sodium Chloride 250 ML 177 MG IV (13:42)
[2023-11-29] MEDS: 0.9 % Sodium Chloride Flush 10 ML SYRINGE 5 ML IVFLUSH (15:23)
[2023-12-13 13:25] VITALS: BP 155/79; PULSE 61; RESP 18; TEMP 36.6; O2SAT 98
[2023-12-13] MEDS: Iron Sucrose Complex 200 MG, Iron Sucrose Complex 100 MG in 0.9 % Sodium Chloride 250 ML 177 MG IV (13:50)
[2023-12-13] MEDS: 0.9 % Sodium Chloride Flush 10 ML SYRINGE 5 ML IVFLUSH (15:22)
[2023-12-21 13:27] VITALS: BP 145/77; PULSE 75; RESP 18; TEMP 36.4; O2SAT 96
[2023-12-21] MEDS: Iron Sucrose Complex 200 MG, Iron Sucrose Complex 100 MG in 0.9 % Sodium Chloride 250 ML 177 MG IV (13:30)
[2023-12-21 14:24] LABS: MANUAL DIFF FLAG NO
[2023-12-21 14:29] LABS: Basophils Percent Auto 0.6 % (0-2); Eosinophils Absolute Auto 0.1 X10*3/uL (0.0-0.4); Eosinophils Percent Auto 1.9 % (0-4); Hematocrit 38.3 % (37.0-47.0); Hemoglobin 12.1 g/dl (12.0-16.0); Imm Gran Abs Auto 0.03 X10*3/uL (0.00-0.03); Imm Gran Pct Auto 0.6 % (0.0-0.4); Lymphocytes Absolute Auto 1.1 X10*3/uL (1.2-4.9); Lymphocytes Percent Auto 21.6 % (20-40); Mean Corpuscular HGB Conc 31.6 g/dl (31.0-35.0); Mean Corpuscular Hemoglobin 29.2 pg (27.0-33.0); Mean Corpuscular Volume 92.5 fL (80.0-98.0); Mean Platelet Volume 11.7 fL (9.4-12.3); Monocytes Absolute Auto 0.5 X10*3/uL (0.1-1.2); Monocytes Percent Auto 9.6 % (2-11); Neutrophils Absolute Auto 3.4 x10*3/uL (2.0-8.3); Neutrophils Percent Auto 65.7 % (45-73); Platelet Count 190 X10*3/uL (160-400); Red Blood Count 4.14 X10*6/uL (4.20-5.50); Red Cell Distribution Width 18.3 % (11.0-16.0); White Blood Count 5.2 X10*3/uL (4.8-10.8)
[2023-12-21] MEDS: 0.9 % Sodium Chloride Flush 10 ML SYRINGE 5 ML IVFLUSH (15:02)
[2023-12-21 15:04] LABS: Ferritin 1316 ng/mL (10-250)
== END 2023-12-21 15:25 | disposition home or self-care (01) ==
LOC: HO.INF 13:30
PROVIDERS: Visit Provider Internal Medicine Medical Oncology
DX: D50.9 Iron deficiency anemia, unspecified (principal)
CPT/HCPCS: 36415; 82728; 85025; 85027; 96365; 96366; J1756

== ENCOUNTER 2023-12-25 09:27 | Outpatient (REF) | payer MEDICARE, SELFPAY ==
[2023-12-25 12:05] LABS: Alanine Aminotransferase 24 U/L (0-31); Albumin Level 3.8 g/dL (3.5-5.0); Alkaline Phosphatase 166 U/L (39-117); Anion Gap 12 (12-20); Aspartate Amino Transferase 20 U/L (5-31); Bilirubin Total 0.5 mg/dL (0.0-1.0); Blood Urea Nitrogen 25 mg/dL (9-16); Calcium 9.9 mg/dL (8.4-10.2); Carbon Dioxide 29 mmol/L (22-29); Chloride 104 mmol/L (96-108); Estimated Glomerular Filt Rate 33; Glucose Random 89 mg/dL (60-115); Magnesium 2.3 mg/dL (1.6-2.6); Potassium 4.1 mmol/L (3.3-5.1); Sodium 141 mmol/L (135-145); Total Protein 7.2 g/dL (6.5-8.0)
[2023-12-25 12:23] LABS: Vitamin D 25-OH Total 41.6 ng/mL (>30)
[2023-12-25 12:34] LABS: Folate 15.3 ng/mL (> or = 4.0); Vitamin B12 444 pg/mL (200-900)
== END 2023-12-25 09:28 | disposition home or self-care (01) ==
LOC: HO.LAB 09:27
PROVIDERS: Absent Provider Internal Medicine; PCP Internal Medicine; Visit Provider Internal Medicine Medical Oncology
DX: E53.8 Deficiency of other specified B group vitamins (principal)
CPT/HCPCS: 36415; 80053; 82306; 82607; 82746; 83735

== ENCOUNTER 2024-02-23 13:43 | Outpatient (REF) | payer MEDICARE, SELFPAY ==
[2024-02-23 14:00] LABS: MANUAL DIFF FLAG NO
[2024-02-23 14:14] LABS: Basophils Absolute Auto 0.1 X10*3/uL (0.0-0.2); Basophils Percent Auto 1.1 % (0-2); Eosinophils Absolute Auto 0.1 X10*3/uL (0.0-0.4); Eosinophils Percent Auto 1.8 % (0-4); Hematocrit 39.3 % (37.0-47.0); Hemoglobin 12.2 g/dl (12.0-16.0); Imm Gran Abs Auto 0.02 X10*3/uL (0.00-0.03); Imm Gran Pct Auto 0.4 % (0.0-0.4); Lymphocytes Absolute Auto 1.4 X10*3/uL (1.2-4.9); Lymphocytes Percent Auto 25.1 % (20-40); Mean Corpuscular Hemoglobin 29.8 pg (27.0-33.0); Mean Corpuscular Volume 95.9 fL (80.0-98.0); Mean Platelet Volume 10.1 fL (9.4-12.3); Monocytes Absolute Auto 0.5 X10*3/uL (0.1-1.2); Monocytes Percent Auto 9.2 % (2-11); Neutrophils Absolute Auto 3.5 x10*3/uL (2.0-8.3); Neutrophils Percent Auto 62.4 % (45-73); Platelet Count 294 X10*3/uL (160-400); Red Cell Distribution Width 14.3 % (11.0-16.0); White Blood Count 5.6 X10*3/uL (4.8-10.8)
== END 2024-02-23 13:44 | disposition home or self-care (01) ==
LOC: HO.LAB 13:43
PROVIDERS: PCP Internal Medicine; Visit Provider Internal Medicine
DX: D50.9 Iron deficiency anemia, unspecified (principal)
CPT/HCPCS: 36415; 85025

== ENCOUNTER 2024-03-21 13:08 | Outpatient (REF) | payer MEDICARE, SELFPAY ==
[2024-03-21 13:54] LABS: MANUAL DIFF FLAG NO
[2024-03-21 15:15] LABS: Basophils Percent Auto 0.7 % (0-2); Eosinophils Absolute Auto 0.1 X10*3/uL (0.0-0.4); Hematocrit 39.4 % (37.0-47.0); Hemoglobin 12.2 g/dl (12.0-16.0); Imm Gran Abs Auto 0.02 X10*3/uL (0.00-0.03); Imm Gran Pct Auto 0.4 % (0.0-0.4); Lymphocytes Absolute Auto 0.8 X10*3/uL (1.2-4.9); Lymphocytes Percent Auto 17.5 % (20-40); Mean Corpuscular Hemoglobin 29.5 pg (27.0-33.0); Mean Corpuscular Volume 95.4 fL (80.0-98.0); Mean Platelet Volume 10.5 fL (9.4-12.3); Monocytes Absolute Auto 0.4 X10*3/uL (0.1-1.2); Monocytes Percent Auto 9.3 % (2-11); Neutrophils Absolute Auto 3.2 x10*3/uL (2.0-8.3); Neutrophils Percent Auto 70.1 % (45-73); Platelet Count 272 X10*3/uL (160-400); Red Blood Count 4.13 X10*6/uL (4.20-5.50); Red Cell Distribution Width 13.2 % (11.0-16.0); White Blood Count 4.5 X10*3/uL (4.8-10.8)
== END 2024-03-21 13:09 | disposition home or self-care (01) ==
LOC: HO.LABR 13:08
PROVIDERS: PCP Internal Medicine; Visit Provider Internal Medicine
DX: D50.9 Iron deficiency anemia, unspecified (principal)
CPT/HCPCS: 36415; 85025

== ENCOUNTER 2024-04-24 14:32 | Outpatient (AMB) | payer MEDICARE, SELFPAY ==
--- OUTSIDE RECORDS SUMMARY | 2024-04-24 14:34 | XMS_ITS ---
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 Role Phone Jl Hameed Primary Care Provider Dawood Glasgow Unavailable [phone] ALLERGIES Allergen (clinical drug ingredient) Drug/Non Drug Allergy documented on EMR Reaction Allergy Type Onset Date Status Penicillin Unknown Drug Allergy Active Statins Depletion Unknown Drug Allergy Active pregabalin Lyrica Unknown Drug Allergy Active Levaquin Unknown Drug Allergy Active gabapentin Gabapentin Unknown Drug Allergy Activ e REASON FOR VISIT Patient presents today for fe def anemia MEDICATIONS Medication SIG (Take, Route, Frequency, Duration) Notes Start Date End Date Status Tylenol 325 MG 1 tablet as needed Orally every 4 hrs/prn PRN Active FLUoxetine HCl 20 MG 1 capsule Orally Once a day Active Centrum Silver - as directed Orally Active Sucralfate 1 GM 1 tablet on an empty stomach Orally Three times a day Active Iron 325 (65 Fe) MG 1 tablet Orally BID Active Carafate Not-Taking Omeprazole 20 MG TAKE 1 CAPSULE BY MOUTH TWICE DAILY for 30 Active Latanoprost 0.005 % Ophthalmic for 90 Active SUMAtriptan Succinate 100 MG TAKE 1 TABLET BY MOUTH AT ONSET OF MIGRAINE. MAY TAKE 1 EXTRA DOSE 2 HOUR LATER NEEDED Oral for 23 [id number],Unavail able Active Myrbetriq 25 MG TAKE 1 TABLET BY MOUTH DAILY. DO NOT CRUSH OR CHEW Oral for 30 Active Clotrimazole 10 MG Mouth/Throat for 14 Active Clindamycin HCl 150 MG TAKE 4 CAPSULE BY MOUTH 1 HOUR PRIOR TO APPT Oral for 4 Active SOCIAL HISTORY Tobacco Use: Social History Observation Description Date Details (start date - stop date) Former Smoker NA - NA Sex Assigned At : Social History Observation Description Sex Assigned At Unknown Tobacco Use/Smoking Question Answer Notes Patient is a former smoker How long has it been since you last smoked? > 10 years Alcohol Screen Question Answer Notes Did you have a drink contain ing alcohol in the past year? Yes How often did you have a dri nk containing alcohol in the past year? Monthly or less (1 point) How many drinks did you have on a typical day when you were drinking in the past year? 1 or 2 drinks (0 point) How often did you have 6 or more drinks on one occasion in the past year? Never (0 point) Points 1 Interpretation Negative VITAL SIGNS BMI 23.27 kg/m2 02/23/2024 Blood pressure systolic 000 mm Hg 02/23/20 24 Blood pressure diastolic 00 mm Hg 024 Height 65.5 in 02/23/2024 Temperature 96.5 degrees Fahrenheit 02/23/20 24 Weight 142 lbs 02/23/2024 Encounters Encounter Location Date Provider Diagnosis [facility] [address] [place] [address] 02/23/2024 Dawood Allred Iron deficiency anemia, unspecified iron deficiency anemia type D50.9 ASSESSMENTS Encounter Date Diagnosis Assessment Notes Treatment Notes Treatment Clinical Notes 02/23/2024 Iron deficiency anemia, unspecified iron deficiency anemia type (ICD-10 - D50.9) Do the blood count lab test at the end of every month. Continue the Omeprazole, Sucralfate, and Iron like you've been doing PLAN OF TREATMENT Treatment Notes Assessment Notes Iron deficiency anemia, unsp ecified iron deficiency anemia type Do the blood count lab test at the end of every month. Continue the Omeprazole, Sucralfate, and Iron like you've been doing Pending Test Test Name Order Date CBC w DIFF 02/23/2024 Next Appt Details Follow Up: 6 Months, , Reaso n: Provider Name:Dawood Allred , 08/09/2024 03:40:00 PM, [address], [address], [place], [address], Progress Notes * Examination Category Sub-Category Detail Notes General Examination GENERAL APPEARANCE: pleasant , well nourished, well developed, in no acute distress HEAD: EYES: sclera non-icteric EARS: NOSE: THROAT: NECK/THYROID: no cervical lymphade nopathy, neck supple HEART: S1, S2 normal CHEST: LUNGS: clear to auscultatio n bilaterally ABDOMEN: normal bowel sounds, no guarding or rigidity, no guarding or rigidity, no masses palpable, soft, nontender, nondistended NEUROLOGIC: alert and oriented SKIN: nonjaundiced, no spi romario angiomata EXTREMITIES: no edema PERIPHERAL PULSES: BACK: BREASTS: MUSCULOSKELETAL: MALE GENITOURINARY: LYMPH NODES: RECTAL EXAM: FEMALE GENITOURINARY: ORAL CAVITY: mucosa moist
--- OUTSIDE RECORDS SUMMARY | 2024-04-24 14:35 | XMS_ITS ---
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 MAY TAKE 1 EXTRA DOSE 2 HOUR LATER NEEDED Oral for 23 [id number],Unavail able Active Myrbetriq 25 MG TAKE 1 TABLET BY MOUTH DAILY. DO NOT CRUSH OR CHEW Oral for 30 Active Clotrimazole 10 MG Mouth/Throat for 14 Active Clindamycin HCl 150 MG TAKE 4 CAPSULE BY MOUTH 1 HOUR PRIOR TO APPT Oral for 4 Active Sucralfate 1 GM 1 tablet on an empty stomach Orally twice a day for 30 Active Iron 325 (65 Fe) MG 1 tablet Orally BID Active Tylenol 325 MG 1 tablet as needed Orally every 4 hrs/prn PRN Active Centrum Silver - as directed Orally Active Omeprazole Magnesium 20 MG 1 tablet 30 minutes before morning meal Orally twice a day Active FLUoxetine HCl 20 MG 1 capsule Orally Once a day Active SOCIAL HISTORY Tobacco Use: Social History [...] Points 1 Interpretation Negative VITAL SIGNS BMI 23.10 kg/m2 08/24/2023 Blood pressure systolic 00 mm Hg 08/24/19 24 Blood pressure diastolic 00 mm Hg 024 Height 65.5 in 08/24/2023 Weight 141 lbs 08/24/2023 Encounters Encounter Location Date Provider Diagnosis [facility] [address] [place] [phone] 08/24/2023 Dawood Allred Iron deficiency anemia, unspecified iron deficiency anemia type D50.9 ASSESSMENTS Encounter Date Diagnosis Assessment Notes Treatment Notes Treatment Clinical Notes 08/24/2023 Iron deficiency anemia, unspecified iron deficiency anemia type (ICD-10 - D50.9) Continue close follow up with Dr. Hernadez for any Iron infusions and/or blood transfusions PLAN OF TREATMENT Treatment Notes Assessment Notes Iron deficiency anemia, unsp ecified iron deficiency anemia type Continue close follow up with Dr. Hernadez for any Iron infusions and/or blood transfusions Next Appt Details Follow Up: 6 Months, Reason: Provider Name:Dawood Allred , 08/09/2024 03:40:00 PM, [address], [address], [place], [address], Progress Notes * Examination Category Sub-Category Detail [...]
--- OUTSIDE RECORDS SUMMARY | 2024-04-24 14:35 | XMS_ITS ---
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
--- OUTSIDE RECORDS SUMMARY | 2024-04-24 14:35 | XMS_ITS | Continuity of Care Document ---
Author Organization [facility], [facility] Address [address] [place] [address] [place] [address] Assessment Encounter Date Assessment Date Assessment LastModified by Organization Details LastModified Time 03/27/2024 03/27/2024 Patient presente d to office today for their Medicare Annual Wellness Visit. Education was provided on healthy nutrition, including a diet rich in fruits and vegetables, minimizing simple carbohydrates, salt, and saturated fats. Encouraged regular cardiovascular exercise such as walking at least 30 minutes daily, 5 times per week. Emphasized preventive health measures and educated pt on fall prevention and community-based lifestyle interventions to help reduce health risks and promote healthy living. [email or web address] Not available 03/22/2024 10:07:08 Plan of Treatment Reminders Order Date Submit Date Provider Last Modified By Organization Details Last Modified Time Details Appointments FOLLOW UP 15 2024 01:30P M DR GILBERT Not available Not available Not available Lab lipid panel, blood 2023 [facility], [address] [place] [address], [id number], 03/27/2024 14:42:02 CBC w/ auto diff 2023 024 [facility], [address] [place] [address], [id number], 03/27/2024 14:42:02 CMP, serum or plasma 2023 024 [facility], [address] [place] [address], [id number], 03/27/2024 14:42:02 Referral None recorded . Procedures None recorded . Surgeries None recorded . Imaging None recorded . Medication Orders None recorded . Patient TargetsNo targets recorded. Patient Instructions Encounter Date Encounter Id Patient Instructions Last Modified By Organization Details Last Modified Time 03/27/2024 [id number] advance care planning: care instructions Not available 03/27/2024 14:40:47 Discussed and explained advance directives such as standard forms to the {{patient caregiv er patient and caregiver}}. Face to face discussion lasted for a duration of ___ minutes. [email or web address] Not available 03/22/2024 10:07:08 Reason for Referral None Reported. Problems Name Problem SNOMED Code Status Onset Date Resolution Date Notes Provider Name and Address Organization Details Recorded Time Dizziness 766087644 Active 2017 Jl Gilbert DO [address] [place] [address], [address], [facility] 8 14:10:15 Diverticu losis of sigmoid colon 795273296 Active 2018 Jl Gilbert DO [address] [place] [address], [address], [facility] 9 15:05:26 Iron deficienc y anemia 43950075 Active 2018 Jl Gilbert DO [address] [place] [address], [address], [facility] 9 15:05:28 Bilateral osteoarth ritis of knees 329648986072 107 Active 2019 Jl Gilbert DO [address] [place] [address], [address], [facility] 0 13:44:31 Postconcu ssion syndrome 47529761 Active 2019 Jl Gilbert DO [address] [place] [address], [address], [facility] 0 14:54:51 Closed fracture of malar AND/OR maxillary bones 67493694 Active 2019 Jl Gilbert DO [address] [place] [address], [address], [facility] 0 14:56:18 Polymyalg ia rheumatic a 33199462 Active 2021 Jl Gilbert DO [address] [place] [address], [address], [facility] 2 13:37:53 Disorder of breast 82464189 Active 2017 Cancer , lymph nodes taken out, [facility] 8 12:25:35 Migraine 36425629 Active 2017 [facility] 8 12:26:02 Gastroeso phageal reflux disease 820695118 Active 2017 [facility] 8 12:26:10 Restless legs 99992400 Active 2017 [facility] 8 12:26:28 Hyperlipi demia 82972058 Active 2017 [facility] 8 12:26:54 Myalgia/m yositis - multiple 217245413 Active 2021 BELEN BEGUM [address] [place] [address], [address], [facility] 2 15:33:50 Tremor 74593815 Active 2022 Jl Gilbert DO [address] [place] [address], [address], [facility] 3 15:17:14 Acute urinary tract infection 267949465 Active 2022 Jl Gilbert DO [address] [place] [address], [address], [facility] 3 11:26:31 Stomach cramps 98124288 Active 2022 Jl Gilbert DO [address] [place] [address], [address], [facility] 3 09:36:53 Atrial tachycard ia 650920030 Active 2022 Jl Gilbert, DO [address] [place] [address], [address], [facility] 3 09:37:39 Unsteady when walking 75947462 Active 2022 Jl Gilbert DO [address] [place] [address], [address], [facility] 3 09:38:19 Nausea, vomiting and diarrhea 7485638 Active 2022 BELEN BEGUM [address] [place] [address], [address], [facility] 3 15:29:32 Liver function tests outside reference range 412372337 Active 2022 BELEN BEGUM [address] [place] [address], [address], [facility] 3 11:01:05 Abdominal pain 30793779 Active 2022 BELEN BEGUM [address] [place] [address], [address], [facility] 3 11:11:43 Cyst of uterus 333573 Active 2022 Jl Gilbert DO [address] [place] [address], [address], [facility] 3 10:42:25 Urinary incontine nhe 382828369 Active 2022 Jl Gilbert DO [address] [place] [address], [address], 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 3 22:13:57 Acute upper gastroint estinal hemorrhag e 87441391 Active 2022 Jl Gilbert DO [address] [place] [address], [address], [facility] 3 22:14:28 Anemia 025768738 Active 2022 Jl Gilbert, DO [address] [place] [address], [address], [facility] 3 22:15:19 Bilateral hearing loss 33109421 Active 2022 BELEN BEGUM [address] [place] [address], [address], [facility] 3 15:04:21 Melena 2276761 Active 2022 BELEN BEGUM [address] [place] [address], [address], [facility] 3 10:41:10 Inappropr iate sinus tachycard ia 285839383 Active 2022 Jl Gilbert DO [address] [place] [address], [address], [facility] 3 10:16:50 Gastroint estinal hemorrhag e 73964244 Active 2022 Jl Gilbert DO [address] [place] [address], [address], [facility] 3 13:45:49 Recurrent urinary tract infection 667739687 Active 2023 Jl Gilbert DO [address] [place] [address], [address], [facility] 4 16:46:48 Synovial cyst of left knee 186823516565 102 Active 2023 Jl Gilbert [address], [address], [facility] 4 12:37:49 Dysuria 96795063 Active 2023 Jl Gilbert DO [address] [place] [address], [address], 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 Procedures Surgical History Date Name Laterality Status Provider Name and Address Organization Details Recorded Time Knee Surgery completed Veromarlyn Mercado [facility] 07/13/2017 12:27:53 Knee Surgery completed Veromarlyn Mercado [facility] 07/13/2017 12:28:28 Cholecystectomy completed [facility] Jess [facility] 07/13/2017 12:29:02 Imaging Results None recorded. Procedure Notes None recorded. Medical Equipment None Reported. Allergies Allergen ID Allergen Name Allergen Category Reaction Reaction Severity Criticality Documentation Date Start Date Code Code System Note Provider Name and Address Organization Details Recorded Time 4167 Lyrica medicatio n Not available Not available Not available 02/01/2018 23230 1 RxNorm leg pain, [facility] 8 13:32:10 550 gabapenti n medicatio n Not available Not available Not available 07/13/2017 03881 RxNorm Light head, numbn ess in hands Vero shen [facility] 8 12:22:40 551 Medicinal product containin g penicilli n and acting as antibacte rial agent (product) medicatio n Not available Not available Not available 07/13/2017 23715 [facility] V[facility] shen [facility] 8 12:22:54 552 Product containin g 3-hydroxy -3-methyl glutaryl- coenzyme A reductase inhibitor (product) medicatio n Not available Not available Not available 07/13/2017 89922 009 [facility] Vero shen [facility] 8 12:23:15 553 Levaquin medicatio n Not available Not available Not available 07/13/2017 75265 2 RxNorm Vero Mercado hermelinda [facility] 8 12:23:26 8253 Gemtesa medicatio n rash Not available Not available 12/06/20232023 47774 16 RxNorm Ashley Gerardo hermelinda [facility] 4 13:44:53 8254 Substance with sulfonami de structure and antibacte rial mechanism of action (substanc e) medicatio n Not available Not available Not available 12/06/2023 47609 8003 SNOMED BELEN BEGUM [address] [place] [address], [address] 7[facility] 4 14:06:19 Medications Name Sig Start Date Stop Date Status Note LastModified by Organization Details LastModified Time celecoxib 200 mg capsule 01/08 completed Not Available Not Available Not Available amoxicillin 500 mg capsule 07/09 completed Not Available Not Available Not Available latanoprost 0.005 % eye drops INSTILL 1 DROP INTO BOTH EYES EVERY EVENING active Not Available Not Available No t Available clotrimazol e 10 mg joceline as needed 08/11 completed Not Available Not Available Not Available desonide 0.05 % topical cream APPLY SPARINGLY AND GENTLY MASSAGE TOPICALLY TO THE AFFECTED AREA TWICE DAILY FOR 10 DAYS active Not Available Not Available No t Available acetaminoph en 325 mg tablet TAKE 2 TABLET BY MOUTH EVERY 4 HOURS NEEDED FOR PAIN active Not Available Not Available No t Available prednisone 10 mg tablet 50 mg x 2 days40 mg x 2 days30 mg x 2 days20 mg x 2 days10 mg x 2 days 12/19 completed Not Available Not Available Not Available erythromyci n 500 mg tablet 10/02 completed Not Available Not Available Not Available Iron (ferrous sulfate) 325 mg (65 mg iron) tablet Take 1 tablet every day by oral route. active Not Available Not Available No t Available azithromyci n 250 mg tablet TAKE 2 TABLETS (500 MG) BY ORAL ROUTE ONCE DAILY FOR 1 DAY THEN 1 TABLET (250 MG) BY ORAL ROUTE ONCE DAILY FOR 4 DAYS 05/08 completed Not Available Not Available Not Available sumatriptan 100 mg tablet TAKE 1 TABLET BY MOUTH AT ONSET OF MIGRAINE. MAY TAKE 1 EXTRA DOSE 2 HOUR LATER NEEDED active Not Available Not Available No t Available senna 8.6 mg tablet TAKE 2 TABLETS BY MOUTH DAILY AT BEDTIME NEEDED FOR CONSTIPAT ION 11/20 completed Not Available Not Available Not Available prochlorper azine maleate 5 mg tablet TAKE 1 TABLET BY MOUTH 3 TIMES A DAY NEEDED FOR NAUSEA OR VOMITTING 11/20 completed Not Available Not Available Not Available sucralfate 1 gram tablet TAKE 1 TABLET BY MOUTH 60 MINUTES BEFORE A MEAL THREE TIMES DAILY AND AT BEDTIME. YOU CAN DISSOLVE PILL INTO 2-3 OZ OF WARM WATER active Not Available Not Available No t Available ondansetron HCl 4 mg tablet 01/08 completed Not Available Not Available Not Available prednisone 20 mg tablet Take 2 tablets every day by oral route for 14 days. 03/16 completed Not Available Not Available Not Available clonazepam 0.5 mg tablet Take 1 tablet every day by oral route at bedtime for 30 days. 06/08 completed Not Available Not Available Not Available clindamycin HCl 150 mg capsule TAKE 1 CAPSULE BY MOUTH EVERY 6 HOURS 05/08 completed Not Available Not Available Not Available triamcinolo ne acetonide 0.1 % topical cream APPLY THIN LAYER TOPICALLY TO THE AFFECTED AREA TWICE DAILY active Not Available Not Available No t Available meloxicam 7.5 mg tablet TAKE 1 TABLET BY MOUTH EVERY DAY 07/14 completed Not Available Not Available Not Available methenamine hippurate 1 gram tablet TAKE 1 TABLET BY MOUTH DAILY active Not Available Not Available No t Available dicyclomine 20 mg tablet TAKE 1 TABLET BY MOUTH THREE TIMES DAILY NEEDED 11/20 completed Not Available Not Available Not Available doxycycline monohydrate 100 mg capsule 04/16 completed Not Available Not Available Not Available cephalexin 500 mg capsule TAKE 1 CAPSULE BY MOUTH DAILY active Not Available Not Available No t Available ropinirole 0.5 mg tablet 08/16 completed Not Available Not Available Not Available ranitidine 150 mg tablet Take 1 tablet twice a day by oral route as needed for 30 days. 02/23 completed Not Available Not Available Not Available omeprazole 20 mg capsule,del ayed release TAKE 1 CAPSULE BY MOUTH TWICE DAILY active Not Available Not Available No t Available cephalexin 500 mg tablet Take 1 tablet every 6 hours by oral route for 10 days. 12/02 completed Not Available Not Available Not Available hydroxyzine HCl 25 mg tablet TAKE 1 TABLET BY MOUTH THREE TIMES DAILY NEEDED FOR 7 DAYS active Not Available Not Available No t Available metoprolol succinate ER 25 mg tablet,exte nded release 24 hr TAKE 1 TABLET BY MOUTH EVERY DAY 09/04 completed Not Available Not Available Not Available polyethylen e glycol 3350 17 gram/dose oral powder DISSOLVE 17G IN WATER AND TAKE ORALLY DAILY active Not Available Not Available No t Available estradiol 0.01% (0.1 mg/gram) vaginal cream USE 1 GRAM VAGINALLY DAILY AT BEDTIME TAKE EVERY NIGHT FOR 2 WEEKS THEN 2 TIMES A WEEK active Not Available Not Available No t Available neomycin 500 mg tablet active Not Available Not Available Not Available ondansetron 4 mg disintegrat ing tablet DISSOLVE 2 TABLETS ON THE TONGUE TWICE DAILY FOR 14 DAYS NEEDED 07/25 completed Not Available Not Available Not Available cefdinir 300 mg capsule TAKE 1 CAPSULE BY MOUTH EVERY 12 HOURS FOR 7 DAYS 07/25 completed Not Available Not Available Not Available fluoxetine 20 mg capsule TAKE 1 CAPSULE BY MOUTH EVERY DAY active Not Available Not Available No t Available oxycodone 5 mg tablet TAKE 1 TABLET BY MOUTH EVERY 6 HOURS NEEDED FOR PAIN active Not Available Not Available No t Available Bactrim DS 800 mg-160 mg tablet Take 1 tablet every 12 hours by oral route for 7 days. 10/13 completed Not Available Not Available Not Available Multivitami n 50 Plus tablet Take 1 tablet every day by oral route. active OTC Not Available Not Available No t Available nitrofurant oin monohydrate /macrocryst als 100 mg capsule TAKE 1 CAPSULE BY MOUTH EVERY 12 HOURS FOR 7 DAYS 07/15 completed Not Available Not Available Not Available Lyrica 75 mg capsule take 1 capsule by mouth three times a day 02/01 completed Not Available Not Available Not Available Prilosec Take one tablet once a day 2017 active Not Available Not Available Not Avai lable Centrum Silver active Not Available Not Available Not Available Vitamin B12 11/20 completed Not Available Not Available Not Available levocetiriz ine 5 mg tablet Take 1 tablet every day by oral route for 30 days. 07/09 completed Not Available Not Available Not Available Myrbetriq 25 mg tablet,exte nded release TAKE 1 TABLET BY MOUTH DAILY. DO NOT CRUSH OR CHEW active Not Available Not Available No t Available Flonase Allergy Relief 50 mcg/actuati on nasal spray,suspe nsion [place] 1 spray every day by intranasa l route for 30 days. 10/02 completed Not Available Not Available Not Available Shingrix (PF) 50 mcg/0.5 mL intramuscul ar suspension, kit 07/09 completed Not Available Not Available Not Available Fluad Quad 2484-2242(6 5yr up)(PF) 60 mcg (15 mcg x 4)/0.5mL IM syringe ADM 0.5ML IM UTD 03/27 completed Not Available Not Available Not Available BinaxNOW COVID-19 Ag Self Test kit TEST DIRECTED TODAY 05/08 completed Not Available Not Available Not Available Vitals Date Recorded Body height Body mass index (BMI) Body weight Heart rate Oxygen saturation Oxygen saturation in Arterial blood by Pulse oximetry Systolic blood pressure Diastolic blood pressure Provider Name and Address Organization Details Last Updated DateTime 4 162.56 cm 24.5 kg/m2 30672.7 1 g 74 /min 99 % 99 % 162 mm[Hg] 84 mm[Hg] Jl Gilbert, DO [address] [place], [address] 14:05:31 Social History Question Answer Notes LastModified by Organizat ion Details LastModified Time Tobacco Smoking Status Former Smoker Not Available [facility]/27/2020 03:36:23 What Was The Date Of Your Most Recent Tobacco Screening? 03/27/2024 Information not available 03/27/2024 How Many Years Have You Smoked Tobacco? 12 [id number] Information not available 02/27/2020 Do You Or Have You Ever Used Any Other Forms Of Tobacco Or Nicotine? No Information not available 09/26/2021 Sex: Unknown Functional Status None recorded. Mental Status None recorded. Family History Nothing Reported. Medical History No medical history recorded. Gynecological HistoryNo gynecological history recorded. Obstetrics History GPAL:G 0 P 0 0 0 0 Immunizations Vaccine Type Date Status Note Provider Nam e and Address Organization Details Recorded Time Tdap 03/23/20 20 completed Radha Gencarelle hermelinda [facility] 01/06/2021 14:52:31 Pneumococcal conjugate PCV 13 02/25/20 17 completed [facility] 01/06/2021 14:58:01 COVID-19, mRNA, LNP-S, PF, 100 mcg/0.5mL dose or 50 mcg/0.25mL dose 06/26/19 21 completed Michelle shen [facility] 01/06/2021 14:58:48 COVID-19, mRNA, LNP-S, PF, 100 mcg/0.5mL dose or 50 mcg/0.25mL dose 05/28/19 21 completed Jl Gilbert DO [address] [place] [address], [address], [facility] 07/14/2021 16:25:57 COVID-19, mRNA, LNP-S, PF, 100 mcg/0.5mL dose or 50 mcg/0.25mL dose 04/07/20 21 completed Jl Gilbert DO [address] [place] [address], [address], [facility] 07/14/2021 16:26:04 Influenza, split virus, quadrivalent, preservative 04/07/20 21 completed Michelle shen [facility] 09/26/2021 09:34:49 influenza, unspecified formulation 04/03/20 22 completed Jl Gilbert DO [address] [place] [address], [address], [facility] 05/15/2022 14:49:17 Influenza, split virus, quadrivalent, preservative 02/17/20 18 completed Michelle shen [facility] 06/08/2018 14:33:06 pneumococcal polysaccharide PPV23 06/25/19 19 completed Jl Gilbert DO [address] [place] [address], [address], [facility] 06/25/2018 10:41:36 zoster live 11/05/19 19 completed Jl Gilbert DO [address] [place] [address], [address], [facility] 11/05/2018 10:43:34 zoster live 01/14/20 19 completed [facility] 01/16/2019 08:06:43 Influenza, adjuvanted, trivalent, PF 01/29/20 19 completed [facility] 01/30/2019 12:01:02 Influenza, split virus, quadrivalent, preservative 01/29/20 20 completed Jl Gilbert DO [address] [place] [address], [address], [facility] 04/16/2020 14:30:36 Influenza, split virus, quadrivalent, preservative 02/19/20 17 completed Vero shen [facility] 07/13/2017 13:26:49 Past Encounters Encounter ID Performer Location Encounter Start Date Encounter Closed Date Diagnosis/Indication Diagnosis SNOMED-CT Code Diagnosis ICD10 Code [id number] Jl Gilbert DO [facility] [address] [address] 03/27/2024 13:49:10 03/27/2024 14:44:29 Adult health examination 482466415 Z00.01 Screening for cardiovascular system disease 833059313 Z13.6 Screening mammography 24 909427 Z12.31 Disorder o f vitamin B12 385508329 E53.8 Hyperlipidemia 60885338 E78.2 Iron defic iency anemia 60451279 D50.9 Eczema 69039481 L30.9 Health Concerns Section Related Observation LastModified by Organization Detai ls LastModified Time None Recorded Concern Status LastModified by Organization Details LastModified Time None Recorded Payers Encounter Date Sequence Insurance Name Policy Number Policy Barnhart Covered Member ID Barnhart Member ID Guarantor Name 03/27/2024 1 [place] [employer] Renita Ritchie [id number] Renita Ritchie 03/27/2024 2 [place] [id number] Renita Ritchie [id number] Renita Ritchie Notes Date Note Type Note Provider Name a tx Address Organization Details Recorded Time 4 text/html Medicare Annual Wellness VisitReported bypatient.Diet and Nutrition:healthy diet Fracture Risk:no history of fractures; no recent explained fracture; no sudden unexplained fractures; no previous musculoskeletal injuries Physical Activity:exercises on a regular basis; recent increase in physical activity; good physical condition Depression Risk:never feels sad, empty, or tearful; no loss of interest in activities; no significant changes in weight; no sleep disturbances or insomnia; no agitation; no loss of energy; no feelings of worthlessness or guilt; no thoughts of suicide; no history of depression; no history of mood disorders Orientation:no disorientation to time; no disorientation to date; no disorientation to place Concentration and Memory:no decreased concentrating ability; no memory lapses or loss; does not forget words Speech/Motor difficulties:no speech difficulties; no difficulty expressing formulated concepts; no difficulty with fine manipulative tasks; no difficulty writing/copying; no slowed reaction time; does not knock things over when trying to pick them up Hearing:no loss of hearing Vision:no vision problems Activities of Daily Living:able to bathe with limited or no assistance; able to contol urination and bowels; able to dress with limited or no assistance; able to feed self with limited or no assistance; able to get out of chair or bed with limited or no assistance; able to groom with limited or no assistance; able to toilet with limited or no assistance Instrumental Activities of Daily Living:able to do house work with limited or no assistance; able to grocery shop with limited or no assistance; able to manage medications with limited or no assistance; able to manage money with limited or no assistance; able to prepare meals with limited or no assistance; able to use the phone with limited or no assistance Falls Risk Assessment:no frequent falls while walking; no fall in the past year; no fall since last visit; no dizziness/vertigo Home Safety:no unsafe preethi hazzards; no unsafe stairs; no unsafe gas appliances; working smoke/CO detectors; wears protective head gear for biking/high velocity; use of seatbelts; practicing 'safer sex'; no vision or hearing loss while driving; no fire arms; has hand bars in the bathroom/shower; good lighting in the home feeling great Jl Gilbert, DO [address] [facility], [place], [id number], [facility] 03/27/2024 14:42:23 OBGyn Episode No OBEpisode recorded.
--- OUTSIDE RECORDS SUMMARY | 2024-04-24 14:35 | XMS_ITS | Data Portability ---
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 MEET 2 OUT OF 3 ELEMENTS: PROBLEMS, DATA OR RISK ELEMENT 1: PROBLEMS ADDRESSED 1 OR MORE CHRONIC ILLNESS WITH EXACERBATION OR 2 OR MORE STABLE CHRONIC ILLNESSES OR 1 UNDIAGNOSED NEW PROBLEM OR 1 ACUTE ILLNESS W/SYMPTOMS OR 1 ACUTE COMPLICATED INJURY ELEMENT 2: DATA MUST MEET 1 OF 3 CATEGORIES CATEGORY 1: REVIEW OF PRIOR EXTERNAL NOTES, REVIEW OF RESULTS, ORDERING OF EACH TEST, ASSESSMENT REQUIRING INDEPENDENT HISTORIAN OR CATEGORY 2: INDEPENDENT INTERPRETATION OF TESTS BY ANOTHER PHYSICIAN OR SPECIALIST OR CATEGORY 3: DISCUSSION OF MGT OR TEST INTERPRETATION W/EXTERNAL PHYSICIAN OR SPECIALIST ELEMENT 3: RISK RISK OF COMPLICATIONS AND/OR MORBIDITY OR MORTALITY OF PATIENT MANAGEMENT PROVIDER MUST THOROUGHLY DOCUMENT EACH ELEMENT THAT IS COVERED Not available 04/21/2023 13:49:15 07/26/2023 07/26/2023 [id number] [place] [id number]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 MEET 2 OUT OF 3 ELEMENTS: PROBLEMS, DATA OR RISK ELEMENT 1: PROBLEMS ADDRESSED 1 OR MORE CHRONIC ILLNESS WITH EXACERBATION OR 2 OR MORE STABLE CHRONIC ILLNESSES OR 1 UNDIAGNOSED NEW PROBLEM OR 1 ACUTE ILLNESS W/SYMPTOMS OR 1 ACUTE COMPLICATED INJURY ELEMENT 2: DATA MUST MEET 1 OF 3 CATEGORIES CATEGORY 1: REVIEW OF PRIOR EXTERNAL NOTES, REVIEW OF RESULTS, ORDERING OF EACH TEST, ASSESSMENT REQUIRING INDEPENDENT HISTORIAN OR CATEGORY 2: INDEPENDENT INTERPRETATION OF TESTS BY ANOTHER PHYSICIAN OR SPECIALIST OR CATEGORY 3: DISCUSSION OF MGT OR TEST INTERPRETATION W/EXTERNAL PHYSICIAN OR SPECIALIST ELEMENT 3: RISK RISK OF COMPLICATIONS AND/OR MORBIDITY OR MORTALITY OF PATIENT MANAGEMENT PROVIDER MUST THOROUGHLY DOCUMENT EACH ELEMENT THAT IS COVERED Not available 07/26/2023 12:38:48 12/20/2023 12/20/2023 [id number] [place] [id number] (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 2 OUT OF 3 ELEMENTS: PROBLEMS, DATA OR RISK ELEMENT 1: PROBLEMS ADDRESSED 1 OR MORE CHRONIC ILLNESS WITH EXACERBATION OR 2 OR MORE STABLE CHRONIC ILLNESSES OR 1 UNDIAGNOSED NEW PROBLEM OR 1 ACUTE ILLNESS W/SYMPTOMS OR 1 ACUTE COMPLICATED INJURY ELEMENT 2: DATA MUST MEET 1 OF 3 CATEGORIES CATEGORY 1: REVIEW OF PRIOR EXTERNAL NOTES, REVIEW OF RESULTS, ORDERING OF EACH TEST, ASSESSMENT REQUIRING INDEPENDENT HISTORIAN OR CATEGORY 2: INDEPENDENT INTERPRETATION OF TESTS BY ANOTHER PHYSICIAN OR SPECIALIST OR CATEGORY 3: DISCUSSION OF MGT OR TEST INTERPRETATION W/EXTERNAL PHYSICIAN OR SPECIALIST ELEMENT 3: RISK RISK OF COMPLICATIONS AND/OR MORBIDITY OR MORTALITY OF PATIENT MANAGEMENT PROVIDER MUST THOROUGHLY DOCUMENT EACH ELEMENT THAT IS COVERED Not available 12/20/2023 14:18:12 03/27/2024 03/27/2024 Patient presente d to office [...] Not available Not available Not available Lab CBC 2023 024 [facility], [address] [place] [address], [id number], 08/10/2023 15:29:32 CBC 2023 024 [facility], [address] [place] [address], [id number], 12/21/2023 16:16:00 CBC 2023 024 [facility], [address] [place] [address], [id number], 02/24/2024 11:36:09 CBC 2023 025 [facility], [address] [place] [address], [address], 02/24/2024 11:36:08 lipid panel, blood 2023 024 [facility], [address] [place] [address], [id number], 03/27/2024 14:42:02 CBC w/ auto diff 2023 024 [facility], [address] [place] [address], [address], 03/27/2024 14:42:02 CMP, serum or plasma 2023 024 [facility], [address] [place] [address], [address], 03/27/2024 14:42:02 Referral None recorded. Procedures None recorded. Surgeries None recorded. Imaging None recorded. Medication Orders prednison e 10 mg tablet 2023 024 [id number], [address] [place] [address], [id number], 12/20/2023 13:50:57 hydroxyzi ne HCl 25 mg tablet 2023 024 [id number], [address] [place] [address], [id number], 12/06/2023 14:09:18 Patient TargetsNo targets recorded. Patient Instructions Encounter Date Encounter Id Patient Instructions Last Modified By Organization Details Last Modified Time 07/26/2023 [id number] iron deficiency anemia: care instructions Not available 07/26/2023 12:40:46 12/20/2023 [id number] polymyalgia rheumatica: care instructions Not available 12/20/2023 14:20:50 anemia: care instructions Not available 12/20/2023 14:20:50 iron deficiency anemia: care instructions Not available 12/20/2023 14:20:50 03/27/2024 [id number] [facility] care planning: [facility] Not available 03/27/2024 14:40:47 Discussed and explained advance directives such as standard forms to the {{patient caregiv er patient and caregiver}}. Face to face discussion lasted for a duration of ___ minutes. health system Not available 03/22/2024 10:07:08 Reason for Referral None Reported. Results Created Date Observation Date Name Description Value Unit Range Abnormal Flag Note LastModifiedBy Organization Detail LastModifiedTime 07/16/19 24 07/16/2023 , [facility] No observ ation record ed. [facility] (Medical Records) [address] [place], [address], 07/16/2023 14:27:12 07/16/19 24 07/16/2023 XR, chest , 2 view No observ ation record ed. [facility] (Medical Records) [address] [place], [address], 07/16/2023 15:32:13 12/29/19 24 12/15/2023 imagi ng/fran willett tic resul t No observ ation record ed. [facility] [address] [place] [address], [id number], 12/29/2023 15:03:51 Result Notes None recorded. Problems Name Problem SNOMED Code Status Onset Date Resolution Date Notes Provider Name and Address Organization Details Recorded Time Dizziness 570785111 Active 2017 Jl Gilbert DO [address] [place] [address], [address], [facility] 8 14:10:15 Diverticu losis of sigmoid colon 901252940 Active 2018 Jl Gilbert DO [address] [place] [address], [address], [facility] 9 15:05:26 Iron deficienc y anemia 47576041 Active 2018 Jl Del RosarioJannette Gilbert, DO [address] [place] [address], [address], [facility] 9 15:05:28 Bilateral osteoarth ritis of knees 928880029874 107 Active 2019 Jl Miles Yoseph, DO [address] [place] [address], [address], [facility] 0 13:44:31 Postconcu ssion syndrome 23666663 Active 2019 Jl Miles Yoseph, DO [address] [place] [address], [address], [facility] 0 14:54:51 Closed fracture of malar AND/OR maxillary bones 86297499 Active 2019 Jl Gilbert, DO [address] [place] [address], [address], [facility] 0 14:56:18 Polymyalg ia rheumatic a 95728603 Active 2021 Jl Gilbert, DO [address] [place] [address], [address], [facility] 2 13:37:53 Disorder of breast 80331874 Active 2017 Cancer , lymph nodes taken out, Chemo/ Radiat ion Vero shen [facility] 8 12:25:35 Migraine 37094894 Active 2017 Vero shen [facility] 8 12:26:02 Gastroeso phageal reflux disease 642958154 Active 2017 Vero shen [facility] 8 12:26:10 Restless legs 62967577 Active 2017 Vero shen [facility] 8 12:26:28 Hyperlipi demia 07922571 Active 2017 Vero shen [facility] 03/20/201 8 12:26:54 Myalgia/m yositis - multiple 739272605 Active 2021 BELEN BEGUM [address] [place] [address], [address], [facility] 2 15:33:50 Tremor 66656857 Active 2022 Jl Gilbert, DO [address] [place] [address], [address], [facility] 3 15:17:14 Acute urinary tract infection 672152297 Active 2022 Jl Gilbert, DO [address] [place] [address], [address], [facility] 3 11:26:31 Stomach cramps 80291113 Active 2022 Jl Gilbert, DO [address] [place] [address], [address], [facility] 3 09:36:53 Atrial tachycard ia 914706008 Active 2022 Jl Gilbert, DO [address] [place] [address], [address], [facility] 3 09:37:39 Unsteady when walking 93687758 Active 2022 Jl Gilbert, DO [address] [place] [address], [address], [facility] 3 09:38:19 Nausea, vomiting and diarrhea 4669453 Active 2022 BELEN BEGUM [address] [place] [address], [address], [facility] 3 15:29:32 Liver function tests outside reference range 253707901 Active 2022 BELEN BEGUM [address] [place] [address], [address], [facility] 3 11:01:05 Abdominal pain 11765981 Active 2022 BELEN BEGUM [address] [place] [address], [address], [facility] 3 11:11:43 Cyst of uterus 510208 Active 2022 Jl Gilbert, DO [address] [place] [address], [address], [facility] 3 10:42:25 Urinary incontine sde 399410833 Active 2022 Jl Gilbert, DO [address] [place] [address], [address], [facility] 3 10:51:28 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 Jl Gilbert DO [address] [place] [address], [address], [facility] 3 22:13:57 Acute upper gastroint estinal hemorrhag e 69341275 Active 2022 Jl Gilbert DO [address] [place] [address], , [facility] 3 22:14:28 Anemia 075335871 Active 2022 Jl Gilbert DO [address] [place] [address], , [facility] 3 22:15:19 Bilateral hearing loss 29540957 Active 2022 BELEN BEGUM [address] [place] [address], , [facility] 3 15:04:21 Melena 0878236 Active 2022 BELEN BEGUM [address] [place] [address], , [facility] 3 10:41:10 Inappropr iate sinus tachycard ia 342773813 Active 2022 Jl Gilbert DO [address] [place] [address], [address], [facility] 3 10:16:50 Gastroint estinal hemorrhag e 61867290 Active 2022 Jl Gilbert, DO [address] [place] [address], [address], [facility] 3 13:45:49 Recurrent urinary tract infection 053040397 Active 2023 Jl Gilbert DO [address] [place] [address], [address], [facility] 4 16:46:48 Synovial cyst of left knee 054368779509 102 Active 2023 Jl Gilbert DO [address] [place] [address], [address], [facility] 4 12:37:49 Dysuria 65087057 Active 2023 Jl Gilbert DO [address] [place] [address], [address], [facility] 4 11:26:29 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 638163197 Active 2023 Jl Gilbert DO [address] [place] [address], [address], [facility] 4 16:07:14 Allergic reaction to drug 751896398 Active 2023 BELEN BEGUM [address] [place] [address], [address], [facility] 4 14:05:39 Facial eczema 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 Procedures Surgical History Date Name Laterality Status Provider Name and Address Organization Details Recorded Time Knee Surgery completed [facility] 07/13/2017 12:27:53 Knee Surgery completed [facility] 07/13/2017 12:28:28 Cholecystectomy completed [facility] 07/13/2017 12:29:02 Imaging Results Imaging Date Name Status LastModified by Organiz ation Details LastModified Time 07/16/2023 US, lower extremity completed [facility] (Medical Records) [address] [place] [address], [address], 07/16/2023 14:27:12 07/16/2023 XR, chest, 2 view completed [facility] (Medical Records) [address] [place] [address], [address], 07/16/2023 15:32:13 12/15/2023 imaging/diagno stic result completed [facility] [address], [address], 12/29/2023 15:03:51 Procedure Notes None recorded. Medical Equipment None Reported. Allergies Allergen ID Allergen Name Allergen Category Reaction Reaction Severity Criticality Documentation Date Start Date Code Code System Note Provider Name and Address Organization Details Recorded Time 2387 Lyrica medicatio n Not available Not available Not available 02/01/2018 96244 1 RxNorm leg pain, sleep ing all the time [facility] Jonrola [facility] 8 13:32:10 550 gabapenti n medicatio n Not available Not available Not available 07/13/2017 90516 RxNorm Light head, numbn ess in hands [facility] Jonrola [facility] 8 12:22:40 551 Medicinal product containin g penicilli n and acting as antibacte rial agent (product) medicatio n Not available Not available Not available 07/13/2017 86987 05 SNOMED Vero shen [facility] 8 12:22:54 552 Product containin g 3-hydroxy -3-methyl glutaryl- coenzyme A reductase inhibitor (product) medicatio n Not available Not available Not available 07/13/2017 25605 009 [facility] 8 12:23:15 553 Levaquin medicatio n Not available Not available Not available 07/13/2017 45867 2 [facility] 8 12:23:26 8253 Gemtesa medicatio n rash Not available Not available 12/06/20232023 92012 16 RxNorm [facility] 4 13:44:53 8254 Substance with sulfonami de structure and antibacte rial mechanism of action (substanc e) medicatio n Not available Not available Not available 12/06/2023 43158 8003 SNOMED BELEN BEGUM [address] [place], [address], [facility] [place] 4 14:06:19 Medications Name Sig Start Date [...] Relief 50 mcg/actuati on nasal spray,suspe nsion [place] 1 spray every day by intranasa l route for 30 days. 10/02 completed Not Available Not Available Not Available Shingrix (PF) 50 mcg/0.5 mL intramuscul ar suspension, kit 07/09 completed Not Available Not Available Not Available Fluad Quad (6 5yr up)(PF) 60 mcg (15 mcg x [...] Details Last Updated DateTime 4 162.56 cm 24.3 kg/m2 37220.0 4 g 85 /min 96 % 96 % 122 mm[Hg] 76 mm[Hg] [facility] 4 12:14:04 Date Recorded Body height Body mass index (BMI) Body weight Heart rate Oxygen saturation Oxygen saturation in Arterial blood by Pulse oximetry Systolic blood pressure Diastolic blood pressure Provider Name and Address Organization Details Last Updated DateTime 4 162.56 cm 24 kg/m2 14357.2 9 g 74 /min 98 % 98 % 128 mm[Hg] 80 mm[Hg] [facility] 4 13:46:47 Date Recorded Body height Body mass index (BMI) Body weight Heart rate Oxygen saturation Oxygen saturation in Arterial blood by Pulse oximetry Systolic blood pressure Diastolic blood pressure Provider Name and Address Organization Details Last Updated DateTime 4 162.56 cm 25.5 kg/m2 19575.4 7 g 74 /min 99 % 99 % 140 mm[Hg] 86 mm[Hg] Alexx Lawsonin [facility] 4 13:51:21 Date Recorded Body height Body mass index (BMI) Body weight Heart rate Oxygen saturation Oxygen saturation in Arterial blood by Pulse oximetry Systolic blood pressure Diastolic blood pressure Provider Name and Address Organization Details Last Updated DateTime 4 162.56 cm 24.5 kg/m2 64023.7 1 g 74 /min 99 % 99 % 162 mm[Hg] 84 mm[Hg] Jl Gilbert, DO [address] [place], [address], [facility] 4 14:05:31 Social History Question Answer Notes LastModified by Organizat ion Details LastModified Time Tobacco Smoking Status [facility]oker Not Available [facility]/27/2020 03:36:23 What Was The Date Of Your Most Recent Tobacco Screening? 03/27/2024 Information not available 03/27/2024 How Many Years Have You Smoked Tobacco? 12 [id number] Information not available 02/27/2020 Do You Or [...] Recorded Time Tdap 03/23/20 20 completed Radha shen [facility] 01/06/2021 14:52:31 Pneumococcal conjugate PCV 13 02/25/20 17 completed Michelle shen [facility] 01/06/2021 14:58:01 COVID-19, mRNA, LNP-S, PF, 100 mcg/0.5mL dose or 50 mcg/0.25mL dose 06/26/19 [facility] 14:58:48 COVID-19, mRNA, LNP-S, PF, 100 mcg/0.5mL dose or 50 mcg/0.25mL dose 05/28/19 21 completed Jl Gilbert DO [address] [place] [address], [address], [facility] 07/14/2021 16:25:57 COVID-19, mRNA, LNP-S, PF, 100 mcg/0.5mL dose or 50 mcg/0.25mL dose 04/07/20 21 completed Jl Gilbert DO [address] [place] [address], [address], [facility] 07/14/2021 16:26:04 Influenza, split virus, quadrivalent, preservative 04/07/20 21 [facility]/26/[facility]21 09:34:49 influenza, unspecified formulation 04/03/20 22 completed Jl Gilbert DO [address] [place] [address], [address], [facility] 05/15/2022 14:49:17 Influenza, split virus, quadrivalent, preservative 02/17/20 18 [facility] 06/08/2018 14:33:06 pneumococcal polysaccharide PPV23 06/25/19 19 completed Jl Gilbert DO [address] [place] [address], [address], [facility] 06/25/2018 10:41:36 zoster live 11/05/19 19 completed Jl Gilbert DO [address] [place] [address], [address], [facility] 11/05/2018 10:43:34 zoster live 01/14/20 19 [facility] 01/16/2019 08:06:43 Influenza, adjuvanted, trivalent, PF 01/29/20 19 completed Michelle shen [facility] 01/30/2019 12:01:02 Influenza, split virus, quadrivalent, preservative 01/29/20 20 completed Jl Gilbert [address], [address], [facility] 04/16/2020 14:30:36 Influenza, split virus, quadrivalent, preservative 02/19/20 17 completed Vero shen [facility] 07/13/2017 13:26:49 Past Encounters Encounter ID Performer Location Encounter Start Date Encounter Closed Date Diagnosis/Indication Diagnosis SNOMED-CT Code Diagnosis ICD10 Code [id number] [facility] [address] [place] [address] [place] [address] 08/16/2017 13:33:31 08/16/2017 14:10:36 Chronic kidney disease stage 2 271447186 N18.2 Liver func tion tests outside reference range 462759617 R94.5 Generalize d anxiety disorder 38225494 F41.1 Restless legs 50982490 G 25.81 Upper resp iratory infection 02714685 J06.9 [id number] [facility] [address] [place] [address] [place] [address] 02/01/2018 13:22:59 02/01/2018 14:08:40 Chronic kidney disease stage 2 250171706 N18.2 Liver func tion tests outside reference range 570293737 R94.5 Generalize d anxiety disorder 25922097 F41.1 Restless legs 31388056 G 25.81 Hyperlipidemia 90398620 E78.5 Gastroesop hageal reflux disease 801100790 K21.9 [id number] Jl Gilbert DO [facility] [address] [place] [address] [place] [address] 02/23/2018 13:33:51 02/23/2018 14:24:06 Depressive disorder 91174021 F32.0 Unintentio nal weight loss 392922456 R63.4 Iron defic iency anemia 32772378 D50.9 [id number] Jl Gilbert DO [facility] [address] [place] [address] 03/11/2018 11:10:51 03/11/2018 13:27:39 Anemia 036286367 D64.9 Epigastric pain 99508427 R10.13 Mass of ri ght adrenal gland 5239057458 4891060 E27.8 [id number] Jl Gilbert [facility] [address] [place] [address] 06/08/2018 14:06:13 06/08/2018 15:18:39 Adult health examination 697088659 Z00.00 Abdominal pain 66162199 R10.9 Iron defic iency anemia 38749948 D50.9 Diverticul osis of sigmoid colon 694008784 K57.30 [id number] Jl Gilbert [facility] [address] [place] [address] 07/13/2018 13:57:33 07/13/2018 14:44:23 Malaise and fatigue 262351185 R53.83 Iron defic iency anemia 22731227 D50.9 Restless legs 58301393 G 25.81 [id number] Jl Gilbert [facility] Internal [address] [address] 07/22/2018 11:43:48 07/22/2018 15:27:37 Iron deficiency anemia 63457726 D50.9 [id number] Magaly AINSLEY Schulz [facility] [address] [place] [address] 12/28/2018 14:42:44 12/28/2018 15:14:54 Cough 73321087 R05 Allergic rhinitis 558951 04 J30.9 Insomnia 957714370 G47.0 0 [id number] Jl Gilbert [facility] [address] [place] [address] 07/10/2019 13:28:38 07/10/2019 14:03:55 Adult health examination 937022635 Z00.01 Iron defic iency anemia 21837796 D50.9 [id number] BELEN BEGUM [facility] [address] [place] [address] [place] [address] 10/03/2019 15:17:44 10/03/2019 16:27:14 Pain of right calf 8172797524 291539 M79.661 Edema of l ower extremity 584173357 R60.0 [id number] Jl Gilbert [facility] [address] [address] 01/08/2020 13:28:57 01/08/2020 14:18:35 Hyperlipidemia 86417304 E78.5 Iron defic iency anemia 17596542 D50.9 Diverticul osis of sigmoid colon 924448546 K57.30 Prerenal azotemia 318494 001 N25.9 [id number] BELEN BEGUM [facility] [address] [place] [address] 03/27/2020 13:25:39 03/27/2020 13:56:50 Migraine 08631991 G43.909 Dizziness 348834373 R42 Vertigo 030809436 R42 [id number] Jl Gilbert [address] [address] 04/16/2020 14:08:59 04/16/2020 15:14:12 Dizziness 140663190 R42 Iron defic iency anemia 15954388 D50.9 Gastroesop hageal reflux disease 822709037 K21.9 Postconcus ileana syndrome 24655622 F07.81 Closed fra cture of malar AND/OR maxillary bones 24819706 S02.400A [id number] Jl [facility] [facility] [address] [address] 08/26/2020 13:25:05 08/26/2020 14:40:35 Iron deficiency anemia 35511630 D50.9 Diverticul osis of sigmoid colon 513480579 K57.30 Dizziness 783389694 R42 [id number] Jl Gilbert [facility] [address] [facility] [place] [address] 01/08/2021 13:20:59 01/08/2021 14:46:00 Mass of right adrenal gland 4709315653 1527187 E27.8 Depressive disorder 3548 9007 F32.0 Closed fra cture of malar AND/OR maxillary bones 27837562 S02.400A Iron defic iency anemia 13401379 D50.9 Hyperlipidemia 12023376 E78.5 Gastroesop hageal reflux disease 037808736 K21.9 Bilateral osteoarthritis of knees 2686968391 77705 M17.0 86550 Jl Gilbert [facility] [address] [place] [address] [place] [address] 05/14/2021 08:12:09 05/16/2021 13:11:42 Iron deficiency anemia 41187598 D50.9 Restless legs 57256929 G 25.81 Diverticul osis of sigmoid colon 256752362 K57.30 Mass of ri ght adrenal gland 0951011733 8444884 E27.8 Depressive disorder 3548 9007 F32.0 Closed fra cture of malar AND/OR maxillary bones 39560619 S02.400A Migraine 33601055 G43.90 9 [id number] Jl Gilbert [facility] [address] [place] [address] [place] [address] 07/14/2021 16:17:28 07/15/2021 11:02:41 Diverticulosis of colon 341985215 K57.30 72477 [facility] [address] [place] [address] [place] [address] 09/26/2021 15:51:14 09/26/2021 16:24:35 Hyperlipidemia 59872559 E78.5 Gastroesop hageal reflux disease 539314509 K21.9 Iron defic iency anemia 25833368 D50.9 Advance care planning 71 2585294 Z71.89 36505 Jl Gilbert [facility] Medicine [address],[place] [address] 12/19/2021 13:31:27 12/19/2021 14:33:24 Migraine 95217018 G43.909 Advance care planning 71 9962489 Z71.89 Polymyalgi a rheumatica 47220547 M35.3 82666 [facility] [address] [place] [address] 01/16/2022 16:17:09 01/19/2022 09:59:46 Polymyalgia rheumatica 77704099 M35.3 Bilateral osteoarthritis of knees 6513954903 15976 M17.0 Diverticul osis of sigmoid colon 923413289 K57.30 Gastroesop hageal reflux disease 412252181 K21.9 Iron defic iency anemia 63329118 D50.9 15132 [facility] [address] [address] 03/16/2022 15:06:22 03/16/2022 15:38:34 Polymyalgia rheumatica 78717186 M35.3 30003 [facility] [address] [place] [address] 05/15/2022 14:37:24 05/15/2022 15:28:13 Iron deficiency anemia 65330809 D50.9 Mass of ri ght adrenal gland 4909575189 9068594 E27.8 Polymyalgi a rheumatica 62383375 M35.3 Depressive disorder 3548 9007 F32.0 Closed fra cture of malar AND/OR maxillary bones 61226938 S02.400A Advance care planning 71 9015912 Z71.89 80315 [facility] [address] [place] [address] 07/01/2022 14:20:51 07/01/2022 15:27:01 Polymyalgia rheumatica 80514054 M35.3 Advance care planning 71 4241368 Z71.89 Iron defic iency anemia 71567495 D50.9 Tremor 19242475 R25.1 71686 Jl Gilbert [facility] Medicine [address] [place] [address] [place] [address] 08/11/2022 10:24:40 08/11/2022 12:19:51 Adult health examination 925801928 Z00.00 Acute urin mahesh tract infection 137778939 N39.0 Atrial fibrillation 4943 6004 I48.91 93625 Jl Gilbert [facility] [address] [facility] [place] [address] 08/28/2022 09:00:48 08/28/2022 11:10:24 Iron deficiency anemia 52496742 D50.9 Stomach cramps 15398204 R10.9 Atrial tachycardia 29663 6006 I47.1 Unsteady when walking 22 498865 R26.89 [id number] BELEN BEGUM [facility] [address] [place] [address] 09/14/2022 09:12:26 09/14/2022 11:23:12 Abdominal pain 15872160 R10.11 Nausea, vo miting and diarrhea 6428059 R11.2 13632 BELEN BEGUM [facility] [address] [place] [address] 10/02/2022 15:40:40 10/02/2022 16:24:29 Pre-surgery evaluation 752167409 Z01.818 61402 Jl Gilbert [facility] [address] [place] [address] 11/20/2022 08:00:16 11/20/2022 14:17:23 Polymyalgia rheumatica 48227190 M35.3 Gastroesop hageal reflux disease 733278822 K21.9 Cyst of uterus 451697 N 88.8 Diverticul osis of sigmoid colon 974319438 K57.30 Urinary incontinence 165 251625 R32 Bilateral osteoarthritis of knees 0477704068 02198 M17.0 94761 BELEN BEGUM [facility] [address] [place] [address] [place] [address] 12/25/2022 08:04:46 12/25/2022 15:24:45 Acute upper gastrointestinal hemorrhage 77817697 K92.1 Gastroesop hageal reflux disease 502688394 K21.9 Hyperlipidemia 85690164 E78.2 Iron defic iency anemia 37836524 D50.9 Bilateral hearing loss 43055252 H90.5 57931 Jl Gilbert [facility] [address] [place] [address] 02/22/2023 09:47:49 02/22/2023 10:59:43 Bilateral osteoarthritis of knees 4555053269 60079 M17.0 Iron defic iency anemia 61004320 D50.9 Acute uppe r gastrointestinal hemorrhage 64625771 K92.1 Inappropri ate sinus tachycardia 280005242 I47.11 [id number] Jl Gilbert [facility] [address] [address] 04/21/2023 09:18:25 04/21/2023 15:17:48 Bilateral osteoarthritis of knees 8309467369 21047 M17.0 Anemia 027086362 D64.9 Inappropri ate sinus tachycardia 137110782 I47.11 Gastrointe stinal hemorrhage 53302857 K92.2 [id number] Jl Gilbert [facility] [address] [address] 07/26/2023 11:53:47 07/26/2023 14:25:43 Synovial cyst of left knee 3401910974 04282 M71.22 Iron defic iency anemia 36631082 D50.9 Acute urin mahesh tract infection 184686532 N39.0 [id number] BELEN BEGUM [facility] [address] [place] [address] 12/06/2023 13:29:44 12/06/2023 14:45:24 Depression screening 948704789 Z13.31 Allergic r eaction to drug 299843687 T78.49XA [id number] Jl Gilbert [facility] [address] [facility],[place] [address] 12/20/2023 13:45:11 12/20/2023 14:22:27 Polymyalgia rheumatica 55600711 M35.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 Anemia 130642079 D64.9 Iron defic iency anemia 16026303 D50.9 [id number] Jl Del RosarioJannette Gilbert [facility] Medicine [address] [facility],[place] [address] 03/27/2024 13:49:10 03/27/2024 14:44:29 Adult health examination 115388335 Z00.01 Screening for cardiovascular system disease 147473610 Z13.6 Screening mammography 24 770231 Z12.31 Disorder o f vitamin B12 443393056 E53.8 Hyperlipidemia 75819020 E78.2 Iron defic iency anemia 23191907 D50.9 Eczema 65951612 L30.9 Health Concerns Section Related Observation LastModified by Organization Detai ls LastModified Time None Recorded Concern Status LastModified by Organization Details LastModified Time None Recorded Advance Directives Directive None Recorded Payers Encounter Date Sequence Insurance Name Policy Number Policy Barnhart Covered Member ID Barnhart Member ID Guarantor Name 04/21/2023 1 [place] [employer] Renita Ritchie [id number] Renita Ritchie 04/21/2023 2 [place] [id number] Renita Ritchie [id number] Renita Ritchie 07/26/2023 1 [place] [employer] Renita Ritchie [id number] Renita Ritchie 07/26/2023 2 [place] [id number] Renita Ritchie [id number] Renita Ritchie 12/06/2023 1 [place] [employer] Renita Ritchie [id number] Renita Ritchie 12/06/2023 2 [place] [id number] Renita Ritchie [id number] Renita Ritchie 12/20/2023 1 [place] [employer] Renita Ritchie [id number] Renita Ritchie 12/20/2023 2 [place] [id number] Renita Ritchie [id number] Renita Ritchie 03/27/2024 1 [place] [employer] Renita Ritchie [id number] 34 Renita Ritchie 03/27/2024 2 [place] [id number] Renita Ritchie [id number] Renita Ritchie Notes Date Note Type Note Provider Name a nd Address Organization Details Recorded Time 3 text/html patient is evaluated via tele/video assessment per patient consentduring current pandemic just discharged from hospital for gi bleed with anemiahas had work up including egd and no evidence of bleed she is have a video eval to look for the bleed to pick u this week getting more cbc on 4 aprhas not noticed any bleeding at all relates she only had black stool and not redhad received multiple transfusions getting the video capsule this weekshe is still weak but eating good now and bowels are normal no longer having melena lJ Gilbert, DO [address] [place], [address], [facility] [place] [facility] 04/21/2023 13:53:16 4 text/html had a swollen leg and was eval in ER for a clotrelates that she had terrible pain with swellingand now feeling better Jl Gilbert, [address] [place], [address], [facility] [place] [facility] 07/26/2023 12:44:27 4 text/html c/o rash the patient developed a macular rash around her eyes, then mouth, no throughout her trunk and arms the rash is very itchy started about a week ago, new med for 3 days, stopped medication due to reaction, specialist office said to contact PCP allergic reaction to the gemtesadiscussed avoiding this medication going forward the patient agreed to start prednisone taper and something for the itch recommended avoiding scented soaps and long hot showers BELEN BEGUM [address] [place], [address], [facility] [place] [facility] 12/06/2023 14:20:25 4 text/html here for r3echk and is doing ok overall except for a recurrent itchy rashstarted a month ago had just been started on Gemtesa by urol and she stopped after 3 days due to itchy rash given pred with resolution but returned 5 days later unfortunatelyrash is around eyes and mouth and between breasts and is very itchy Jl Gilbert DO [address] [place], [address], [facility] [place] [facility] 12/20/2023 14:21:08 4 text/html Medicare Annual Wellness VisitReported bypatient.Diet [...] home feeling great Jl Gilbert, DO [address] [facility], [place], [address], [facility] 03/27/2024 14:42:23 OBGyn Episode No OBEpisode recorded.
--- OUTSIDE RECORDS SUMMARY | 2024-04-24 14:35 | XMS_ITS | Patient Health Record ---
Author Organization [facility] Address [address] [place] [address] Care Team Providers Care Operation Shift Supervisor Name Role Phone Jl Hameed Primary Care Provider Dawood Glasgow Unavailable [phone] ALLERGIES Allergen (clinical drug ingredient) Drug/Non Drug Allergy documented on EMR Reaction Allergy Type Onset Date Status Penicillin Unknown Drug Allergy Active Statins Depletion Unknown Drug Allergy Active pregabalin Lyrica Unknown Drug Allergy Active Levaquin Unknown Drug Allergy Active gabapentin Gabapentin Unknown Drug Allergy Activ e RESULTS Component Value Reference Range Notes Complete Blood Count Auto Di ff Reviewed date:05/12/2023 06:13:01 PM Interpretation: Performing Lab:[facility], [address] [place] [phone] Notes/Report: White Blood Count 5.4 4.8-10.8 X10*3/uL Red Blood Count 4.29 4.20-5.50 X10*6/uL Hemoglobin 10.3 12.0-16.0 g/dl Hematocrit 35.1 37.0-47.0 % Mean Corpuscular Volume 81.8 80.0-98.0 fL Mean Corpuscular Hemoglobin 24.0 27.0-33.0 pg Mean Corpuscular HGB Conc 29.3 31.0-35.0 g/dl Red Cell Distribution Width 18.9 11.0-16.0 % Platelet Count 332 160-400 X10*3/uL Mean Platelet Volume 11.0 9.4-12.3 fL Neutrophils Percent Auto 48.3 45-73 % Imm Gran Pct Auto 0.2 0.0-0.4 % Lymphocytes Percent Auto 36.7 20-40 % Monocytes Percent Auto 9.8 2-11 % Eosinophils Percent Auto 4.1 0-4 % Basophils Percent Auto 0.9 0-2 % NRBC Pct Auto 0.0 0.0-0.2 /100WBC Neutrophils Absolute Auto 2.6 2.0-8.3 x10*3/u L Imm Gran Abs Auto 0.01 0.00-0.03 X10*3/uL Lymphocytes Absolute Auto 2.0 1.2-4.9 X10*3/u L Monocytes Absolute Auto 0.5 0.1-1.2 X10*3/uL Eosinophils Absolute Auto 0.2 0.0-0.4 X10*3/u L Basophils Absolute Auto 0.1 0.0-0.2 X10*3/uL NRBC Abs Auto 0.000 0.0-0.012 X10*3/uL Complete Blood Count Auto Di ff Reviewed date:06/01/2023 11:04:23 PM Interpretation: Performing Lab:[facility], [address] [place] [phone] Notes/Report: White Blood Count 5.4 4.8-10.8 X10*3/uL Red Blood Count 3.94 4.20-5.50 X10*6/uL Hemoglobin 9.9 12.0-16.0 g/dl Hematocrit 32.4 37.0-47.0 % Mean Corpuscular Volume 82.2 80.0-98.0 fL Mean Corpuscular Hemoglobin 25.1 27.0-33.0 pg Mean Corpuscular HGB Conc 30.6 31.0-35.0 g/dl Red Cell Distribution Width 17.4 11.0-16.0 % Platelet Count 363 160-400 X10*3/uL Mean Platelet Volume 10.3 9.4-12.3 fL Neutrophils Percent Auto 66.8 45-73 % Imm Gran Pct Auto 0.4 0.0-0.4 % Lymphocytes Percent Auto 20.4 20-40 % Monocytes Percent Auto 8.9 2-11 % Eosinophils Percent Auto 2.6 0-4 % Basophils Percent Auto 0.9 0-2 % NRBC Pct Auto 0.0 0.0-0.2 /100WBC Neutrophils Absolute Auto 3.6 2.0-8.3 x10*3/u L Imm Gran Abs Auto 0.02 0.00-0.03 X10*3/uL Lymphocytes Absolute Auto 1.1 1.2-4.9 X10*3/u L Monocytes Absolute Auto 0.5 0.1-1.2 X10*3/uL Eosinophils Absolute Auto 0.1 0.0-0.4 X10*3/u L Basophils Absolute Auto 0.1 0.0-0.2 X10*3/uL NRBC Abs Auto 0.000 0.0-0.012 X10*3/uL IRON PROFILE Reviewed date:06/01/2023 11:03:51 PM Interpretation: Performing Lab:[facility], [address] [place] [phone] Notes/Report: Iron 17 30-160 mcg/dL Total Iron Binding Capacity 189 228-428 mcg/d L Percent Iron Saturation 9 15-50 % Unsaturated Iron Binding 172 Ferritin Reviewed date:06/01/2023 10:57:11 AM Interpretation: Performing Lab:[facility], [address] [place] [phone] Notes/Report: Ferritin 120 10-250 ng/mL Complete Blood Count Auto Di ff Reviewed date:07/16/2023 07:00:04 PM Interpretation: Performing Lab:[facility], [address] [place] [phone] Notes/Report: White Blood Count 4.9 4.8-10.8 X10*3/uL Red Blood Count 3.87 4.20-5.50 X10*6/uL Hemoglobin 9.3 12.0-16.0 g/dl Hematocrit 31.5 37.0-47.0 % Mean Corpuscular Volume 81.4 80.0-98.0 fL Mean Corpuscular Hemoglobin 24.0 27.0-33.0 pg Mean Corpuscular HGB Conc 29.5 31.0-35.0 g/dl Red Cell Distribution Width 16.6 11.0-16.0 % Platelet Count 449 160-400 X10*3/uL Mean Platelet Volume 10.2 9.4-12.3 fL Neutrophils Percent Auto 55.2 45-73 % Imm Gran Pct Auto 0.4 0.0-0.4 % Lymphocytes Percent Auto 32.0 20-40 % Monocytes Percent Auto 9.7 2-11 % Eosinophils Percent Auto 1.9 0-4 % Basophils Percent Auto 0.8 0-2 % NRBC Pct Auto 0.0 0.0-0.2 /100WBC Neutrophils Absolute Auto 2.7 2.0-8.3 x10*3/u L Imm Gran Abs Auto 0.02 0.00-0.03 X10*3/uL Lymphocytes Absolute Auto 1.6 1.2-4.9 X10*3/u L Monocytes Absolute Auto 0.5 0.1-1.2 X10*3/uL Eosinophils Absolute Auto 0.1 0.0-0.4 X10*3/u L Basophils Absolute Auto 0.0 0.0-0.2 X10*3/uL NRBC Abs Auto 0.000 0.0-0.012 X10*3/uL Complete Blood Count Auto Di ff Reviewed date:04/16/2024 01:16:34 PM Interpretation: Performing Lab:[facility], [address] [place] [phone] Notes/Report: White Blood Count 5.6 4.8-10.8 X10*3/uL Red Blood Count 4.10 4.20-5.50 X10*6/uL Hemoglobin 12.2 12.0-16.0 g/dl Hematocrit 39.3 37.0-47.0 % Mean Corpuscular Volume 95.9 80.0-98.0 fL Mean Corpuscular Hemoglobin 29.8 27.0-33.0 pg Mean Corpuscular HGB Conc 31.0 31.0-35.0 g/dl Red Cell Distribution Width 14.3 11.0-16.0 % Platelet Count 294 160-400 X10*3/uL Mean Platelet Volume 10.1 9.4-12.3 fL Neutrophils Percent Auto 62.4 45-73 % Imm Gran Pct Auto 0.4 0.0-0.4 % Lymphocytes Percent Auto 25.1 20-40 % Monocytes Percent Auto 9.2 2-11 % Eosinophils Percent Auto 1.8 0-4 % Basophils Percent Auto 1.1 0-2 % NRBC Pct Auto 0.0 0.0-0.2 /100WBC Neutrophils Absolute Auto 3.5 2.0-8.3 x10*3/u L Imm Gran Abs Auto 0.02 0.00-0.03 X10*3/uL Lymphocytes Absolute Auto 1.4 1.2-4.9 X10*3/u L Monocytes Absolute Auto 0.5 0.1-1.2 X10*3/uL Eosinophils Absolute Auto 0.1 0.0-0.4 X10*3/u L Basophils Absolute Auto 0.1 0.0-0.2 X10*3/uL NRBC Abs Auto 0.000 0.0-0.012 X10*3/uL Complete Blood Count Auto Di ff Reviewed date:04/16/2024 01:05:11 PM Interpretation: Performing Lab:[facility], [address] [place] [phone] Notes/Report: White Blood Count 4.5 4.8-10.8 X10*3/uL Red Blood Count 4.13 4.20-5.50 X10*6/uL Hemoglobin 12.2 12.0-16.0 g/dl Hematocrit 39.4 37.0-47.0 % Mean Corpuscular Volume 95.4 80.0-98.0 fL Mean Corpuscular Hemoglobin 29.5 27.0-33.0 pg Mean Corpuscular HGB Conc 31.0 31.0-35.0 g/dl Red Cell Distribution Width 13.2 11.0-16.0 % Platelet Count 272 160-400 X10*3/uL Mean Platelet Volume 10.5 9.4-12.3 fL Neutrophils Percent Auto 70.1 45-73 % Imm Gran Pct Auto 0.4 0.0-0.4 % Lymphocytes Percent Auto 17.5 20-40 % Monocytes Percent Auto 9.3 2-11 % Eosinophils Percent Auto 2.0 0-4 % Basophils Percent Auto 0.7 0-2 % NRBC Pct Auto 0.0 0.0-0.2 /100WBC Neutrophils Absolute Auto 3.2 2.0-8.3 x10*3/u L Imm Gran Abs Auto 0.02 0.00-0.03 X10*3/uL Lymphocytes Absolute Auto 0.8 1.2-4.9 X10*3/u L Monocytes Absolute Auto 0.4 0.1-1.2 X10*3/uL Eosinophils Absolute Auto 0.1 0.0-0.4 X10*3/u L Basophils Absolute Auto 0.0 0.0-0.2 X10*3/uL NRBC Abs Auto 0.000 0.0-0.012 X10*3/uL REASON FOR REFERRAL No Information MEDICATIONS Medication SIG (Take, Route, Frequency, Duration) Notes Start Date End Date Status Tylenol 325 MG 1 tablet as needed Orally every 4 hrs/prn PRN Active FLUoxetine HCl 20 MG 1 capsule Orally Once a day Active Centrum Silver - as directed Orally Active Carafate Not-Taking Omeprazole 20 MG TAKE 1 CAPSULE BY MOUTH TWICE DAILY for 30 Active Latanoprost 0.005 % Ophthalmic for 90 Active Sucralfate 1 GM TAKE 1 TABLET BY MOUTH 60 MINUTES BEFORE A MEAL THREE TIMES DAILY AND AT BEDTIME. YOU CAN DISSOLVE PILL IN 2 TO 3 OZ OF WARM WATER. for 30 Active SUMAtriptan Succinate 100 MG TAKE 1 TABLET BY MOUTH AT ONSET OF MIGRAINE. MAY TAKE 1 EXTRA DOSE 2 HOUR LATER NEEDED Oral for 23 [id number],Unavail able Active Myrbetriq 25 MG TAKE 1 TABLET BY MOUTH DAILY. DO NOT CRUSH OR CHEW Oral for 30 Active Clotrimazole 10 MG Mouth/Throat for 14 Active Clindamycin HCl 150 MG TAKE 4 CAPSULE BY MOUTH 1 HOUR PRIOR TO APPT Oral for 4 Active Iron 325 (65 Fe) MG 1 tablet Orally BID Active IMMUNIZATIONS Vaccine Route Administration Date Status Comme nts Influenza Unknown 03/16/2018 Administered Influenza Unknown 01/24/2019 Administered Influenza Unknown 02/07/2020 Administered Influenza Unknown 01/24/2021 Administered Influenza Unknown 02/10/2022 Administered Influenza Unknown 01/26/2024 Administered SOCIAL HISTORY Tobacco Use: Social History Observation [...] Never (0 point) Points 1 Interpretation Negative PROBLEMS Problem Type ICD Code Onset Dates Problem Status W/U Status Risk SNOMED Code Notes Problem History of adenomatous polyp of colon (Z86.010) Active confirmed 138623077 Problem Weight loss (R63.4) Active confirmed 89 005777 Problem 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) Active confirmed Gastric h emorrhage due to angiodysplasia of stomach (6750362941202267) Problem Iron deficiency anemia (D50.9) Active confirmed Iron deficien cy anemia (80212293) Problem Colon polyp (K63.5) Active confirmed Po lyp colon (39179369) Problem Gastroesophageal reflux disease without esophagitis (K21.9) Active confirmed 352366252 Problem Heme + stool (R19.5) Active confirmed 46774216 Problem Hiatal hernia (K44.9) Active confirmed Hiatal hernia (72249364) Problem Gastric polyps (K31.7) Active confirmed Benign neoplasm of stomach (63337107) Problem Iron deficiency anemia due to chronic blood loss (D50.0) Active confirmed 752963144 Problem UGI bleed (K92.2) Active confirmed 3732001 Problem Other iron deficiency anemia (D50.8) Active confirmed 14753222 Problem Iron deficiency anemia, unspecified iron deficiency anemia type (D50.9) Active confirmed 29128247 Problem Abnormal CT scan, stomach (R93.3) Active confirmed 618402307 Problem Diarrhea, unspecified type (R19.7) Active confirmed 40089368 Problem Diverticulosis of colon (K57.30) Active confirmed Diverticulosi s of colon (729953924) Problem Anemia due to acute blood loss (D62) Active confirmed 310925646 Problem 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) Active confirmed 674421668 Problem Hx of Billroth II operation (Z98.0) Active confirmed History of gastrointestinal tract bypass (856105642) VITAL SIGNS Temperature 96.5 degrees Fahrenheit 02/23/2024 Blood pressure diastolic 00 mm Hg 02/23/2024 Height 65.5 in 02/23/2024 Blood pressure systolic 000 mm Hg 02/23/2024 Weight 142 lbs 02/23/2024 BMI 23.27 kg/m2 02/23/2024 Encounters Encounter Location Date Provider Diagnosis [facility] [address] [place] [phone] 08/24/2023 Dawood Allred Iron deficiency anemia, unspecified iron deficiency anemia type D50.9 [facility] [address] [place] [phone] 02/23/2024 Dawood Allred Iron deficiency anemia, unspecified iron deficiency anemia type D50.9 [facility] [address] [place] [phone] 05/06/2023 Dawood Allred [facility] [address] [place] [phone] 05/12/2023 Dawood Allred Iron deficiency anem ia due to chronic blood loss D50.0 [facility] [address] [place] [phone] 05/31/2023 Dawood lAlred Iron deficiency anemia, unspecified iron deficiency anemia type D50.9 [facility] [address] [place] [phone] 06/27/2023 Dawood Allred [facility] [address] [place] [phone] 06/28/2023 Dawood Allred [facility] [address] [place] [phone] 11/16/2023 Dawood Allred ASSESSMENTS Encounter Date Diagnosis Assessment Notes Treatment Notes Treatment Clinical Notes 08/24/2023 Iron deficiency anemia, unspecified iron deficiency anemia type (ICD-10 - D50.9) Continue close follow up with Dr. Hernadez for any Iron infusions and/or blood transfusions 02/23/2024 Iron deficiency anemia, unspecified iron deficiency anemia type (ICD-10 - D50.9) Do the blood count lab test at the end of every month. Continue the Omeprazole, Sucralfate, and Iron like you've been doing 05/12/2023 Iron deficiency anemia due to chronic blood loss (ICD-10 - D50.0) 05/31/2023 Iron deficiency anemia, unspecified iron deficiency anemia type (ICD-10 - D50.9) PLAN OF TREATMENT Pending Test Test Name Order Date IRON + IBC (FE) 05/12/2023 IRON + IBC (FE) 09/06/2019 IRON + IBC (FE) 03/05/2020 IRON + IBC (FE) 07/03/2020 IRON + IBC (FE) 12/17/2022 IRON + IBC (FE) 08/23/2018 IRON + IBC (FE) 11/16/2018 IRON + IBC (FE) 01/04/2020 IRON + IBC (FE) 03/13/2020 IRON + IBC (FE) 07/13/2018 IRON + IBC (FE) 02/23/2023 IRON + IBC (FE) 10/06/2018 FERRITIN 07/13/2018 FERRITIN 10/06/2018 FERRITIN 09/06/2019 FERRITIN 03/05/2020 FERRITIN 07/03/2020 FERRITIN 08/23/2018 FERRITIN 11/16/2018 FERRITIN 01/04/2020 FERRITIN 03/13/2020 CRP 06/13/2021 CBC w DIFF 06/13/2021 CBC w DIFF 03/13/2020 CBC w DIFF 02/23/2023 CBC w DIFF 12/19/2018 CBC w DIFF 05/12/2023 CBC w DIFF 07/13/2018 CBC w DIFF 10/06/2018 CBC w DIFF 09/06/2019 CBC w DIFF 03/29/2023 CBC w DIFF 03/05/2020 CBC w DIFF 12/17/2022 CBC w DIFF 05/31/2023 CBC w DIFF 07/03/2020 CBC w DIFF 04/07/2023 CBC w DIFF 04/18/2019 CBC w DIFF 02/23/2024 CBC w DIFF 08/23/2018 CBC w DIFF 04/15/2023 CBC w DIFF 05/31/2019 CBC w DIFF 11/16/2018 CBC w DIFF 01/04/2020 SED RATE (ESR) 06/13/2021 CELIAC PANEL #10 06/26/2021 CULTURE, STOOL 06/13/2021 STOOL WBC 06/13/2021 C DIFFICILE RFLX PCR 06/13/2021 Ferritin 02/23/2023 Ferritin 05/12/2023 Ferritin 12/17/2022 Future Test Test Name Order Date COLONOSCOPY 01/29/2011 UPPER GI ENDOSCOPY 03/25/2018 COLONOSCOPY 03/25/2018 UPPER GI ENDOSCOPY 01/24/2019 COLONOSCOPY 01/24/2019 COLONOSCOPY 06/26/2021 Next Appt Details Provider Name:Dawood Allred , 08/09/2024 03:40:00 PM, [address], [address], [place], [address], Insurance Providers Payer Name Payer Address Payer Phone Subscriber Number Group Number Insured Name Patient Relationship to Insured Coverage Start Date Coverage End Date [place] [address] [place] [address] [id number] CORNELIO LONGORIA Self - patient is the insured [employer] ATTN CLAIMS [address] [place] [phone] [id number] CORNELIO LONGORIA Self - patient is the insured MEDICAL (GENERAL) HISTORY Medical History History ICD Code Colon polyps with tubular ad enomas---4 colonoscopies since 1997---last colonoscopy in 2011 with a small tubular adenoma removed GERD-last EGD in 2000 with t he finding of a hiatal hernia-no Larry's esophagus Right-sided breast cancer-Rx'd with lump ectomy, XRT, and chemo Migraines Restless leg syndrome Denies MT,DM,CVA,Lung disease,renal dise ase Iron def. anemia in 2018--EG D 03/2018 HH, normal duodenal biopsies; Colonoscopy was normal as well. Neg SB video capsule study in 07/2018. Heme + stool cards. Vit B12 level was 202 in 07/2018. She needed 2 units of blood in July 2018 for a hemoglobin of 7.7. Received [address] Hernadez in 04/2019. Hgb 11.5 with MCV 06/26/19. Received Iron infusions in summer, Hgb was 11.4 in 02/2020. Borderline low vitamin B12 level of 202 in 07/[address] abd/pelvis 02/2018 EGD 02/2019-gastric ? Dieulafoy lesion-- clipped x 2 Colonoscopy 02/2019-2 small tubular bryan oams Concussion with a facial fracture in 2019 after a Fall Colonoscopy 06/2021 with 1 tu bulovillous adenoma removed; no IBD; no microscopic colitis PMR--just finished a course of prednsion e as of 07/2022 Urinary incontinence November 2022 hospitalization for significant anemia due to recurrent upper GI bleeding from the proximal stomach lesion consistent with either an angiodysplasia or Dieulafoy lesion. She did require transfusions. This was treated endoscopically with several clips and epinephrine sclerotherapy. Recurrent anemia needing a b lood transfusion and iron infusion in the Fall of 2022 Upper endoscopy in March of 2023 did not show any sign of active bleeding. The 2 previously placed clips on the area of the proximal stomach at the site of the presumed angiodysplasia or Dieulafoy lesion was still in place. Small bowel video capsule st udy was negative for any sign of bleeding or any source of bleeding at the end of March 2023 She required a blood transfu ileana and multiple iron infusions in the spring with Dr. Hernadez She received 8 iron infusion s from September 2023 through early November of [address] Hernadez. Her hemoglobin improved up to 12.5 at the end of December of 2023. Surgical History Surgery Date(Month/Year) Breast cancer as above Bilateral cataract surgery Left knee replacement in 2008 [facility] Diverticulitis surgery with tempororary colostomy at [facility] 2013 Right knee replacement in 2015 Partial hysterectomy due to 12.2 cyst on overies . both overies removed Placement of a temporary ner ve stimulator in her left leg for chronic knee pain 01/2023
[2024-04-24 14:48] VITALS: PULSE 82; TEMP 36.6; O2SAT 98; BMI 24.0
--- NOTE | 2024-04-24 14:48 | A.OFFVIS_ITS ---
Vital Signs 04/24/24 14:48 Height 5 ft 5 in Weight 144 lb BMI 24.0 Pulse 82 Pulse Source Pulse Oximeter Temp 97.8 F Temp Source Oral Pulse Oximetry (%) 98 Oxygen Delivery Method Room Air Intake Visit Reasons: follow up cephalexin Allergies sulfamethoxazole [From Bactrim] Allergy (Severe, Verified 04/24/24 14:52) rash/itching trimethoprim [From Bactrim] Allergy (Severe, Verified 04/24/24 14:52) rash/itching Penicillins Allergy (Mild, Verified 04/24/24 14:52) RASH pregabalin [From Lyrica] Allergy (Mild, Verified 04/24/24 14:52) Rash [id number]-HFW-[id number] Reductase Inhibitor [Statins: Hmg-Coa Reductase Inhibito] Allergy (Mild, Verified 04/24/24 14:52) RASH levofloxacin [From LEVAQUIN] Allergy (Unknown, Verified 04/24/24 14:52) RED RASH gabapentin Allergy (Verified 04/24/24 14:52) Unknown HPI HPI follow up cephalexin: Details: She has been doing well since taking Keflex 500 mg daily as well as methanamine 1 g po daily. She has no complaints of UTI. [facility] Medical History Recurrent UTI Iron deficiency anemia Chronic upper gastrointestinal bleeding Migraine Acute anemia Cataracts, bilateral FH: total knee replacement Cholecystectomy planned Diverticulitis Hx of breast cancer Iron deficiency anemia Surgical History History of colostomy reversal H/O total knee replacement H/O colonoscopy Cataract Family History Sister Breast cancer Diabetes Mother Diabetes Social History Household Members: Children Household Members Other:: 3 Housing: House Are you a primary child care supervisor to a significant other at home: No Do you presently have visiting nurse or other home services: No Alcohol intake: never Comment: Pt low fall risk Patient Tobacco Use Status: Former Tobacco user service: No Current occupational status: retired Physical Exam Vital Signs: Last Vital Signs Temp 97.8 F 04/24/24 14:48 Pulse 82 04/24/24 14:48 Pulse Ox 98 04/24/24 14:48 Oxygen Delivery Method Room Air 04/24/24 14:48 BMI result Body Mass Index 24.0 Const General: cooperative Orientation/consciousness: patient oriented x3 HEENT Head: Yes normal to inspection Mouth: Normal oral and palatal mucosa present Eyes General: appearance normal, both eyes and all related structures Pupils: Equal, round and reactive pupils present Resp Effort & Inspection: normal respiratory effort Cardio Rate: regular rate Rhythm: regular rhythm GI Palpation (GI): Soft to palpation and nontender General: Yes no CVA tenderness Back/Spine/Pelvis Back: no CVA tenderness Skin General skin exam: no rashes or lesions noted Neuro General: patient oriented x3 Cranial nerves: Yes CN's II-XII intact bilaterally and Yes Equal, round and reactive pupils present Extrem General: Yes normal to inspection Psych Appearance: grossly normal Assessment & Plan Assessment & Plan (1) Recurrent UTI: Comment: She is doing well. She has no rash or diarrhea. She should continue daily Keflex 500 mg and methenamine 1 g daily, now 90 day supply and three refills. Let us know if trouble with 90 day supplies as I intend to keep her on it indefinitely. See her in one year. Code(s): N39.0 - Urinary tract infection, site not specified Category: Medical Plan: na Plan na Medications: Changed From methenamine hippurate 1 g PO DAILY 30 days 30 tabs 5RF To methenamine hippurate 1 g PO DAILY 90 tabs 3RF 90 days From cephalexin 500 mg PO DAILY 30 days 30 caps 5RF To cephalexin 500 mg PO DAILY 90 caps 3RF 90 days Refilled methenamine hippurate 1 g PO DAILY 30 days 30 tabs 5RF Coding Level of Care Code Est Pt Level 3 (84681) Diagnoses Recurrent UTI N39.0
== END 2024-04-24 15:07 | disposition home or self-care (01) ==
PROVIDERS: PCP Internal Medicine; Visit Provider Internal Medicine
DX: N39.0 Urinary tract infection, site not specified (principal)
CPT/HCPCS: 99213

== ENCOUNTER → 2024-04-24 14:32 | Outpatient (BNVA) | payer MEDICARE, SELFPAY | PROVIDERS: PCP Internal Medicine; Visit Provider Internal Medicine | DX: N39.0 Urinary tract infection, site not specified (principal) | CPT/HCPCS: 99212 ==

== ENCOUNTER 2024-05-18 13:49 | Outpatient (REF) | payer MEDICARE, SELFPAY ==
[2024-05-18 14:10] LABS: MANUAL DIFF FLAG NO
[2024-05-18 14:24] LABS: Basophils Absolute Auto 0.1 X10*3/uL (0.0-0.2); Eosinophils Absolute Auto 0.1 X10*3/uL (0.0-0.4); Eosinophils Percent Auto 2.3 % (0-4); Hematocrit 40.1 % (37.0-47.0); Hemoglobin 12.1 g/dl (12.0-16.0); Imm Gran Abs Auto 0.03 X10*3/uL (0.00-0.03); Imm Gran Pct Auto 0.6 % (0.0-0.4); Lymphocytes Absolute Auto 1.1 X10*3/uL (1.2-4.9); Lymphocytes Percent Auto 20.8 % (20-40); Mean Corpuscular HGB Conc 30.2 g/dl (31.0-35.0); Mean Corpuscular Hemoglobin 28.5 pg (27.0-33.0); Mean Corpuscular Volume 94.4 fL (80.0-98.0); Mean Platelet Volume 10.2 fL (9.4-12.3); Monocytes Absolute Auto 0.6 X10*3/uL (0.1-1.2); Monocytes Percent Auto 10.9 % (2-11); Neutrophils Absolute Auto 3.4 x10*3/uL (2.0-8.3); Neutrophils Percent Auto 64.4 % (45-73); Platelet Count 339 X10*3/uL (160-400); Red Blood Count 4.25 X10*6/uL (4.20-5.50); White Blood Count 5.2 X10*3/uL (4.8-10.8)
[2024-05-18 14:55] LABS: Alanine Aminotransferase 7 U/L (0-31); Albumin Level 3.6 g/dL (3.5-5.0); Alkaline Phosphatase 143 U/L (39-117); Anion Gap 11 (12-20); Aspartate Amino Transferase 21 U/L (5-31); Bilirubin Total 0.3 mg/dL (0.0-1.0); Blood Urea Nitrogen 26 mg/dL (9-16); Carbon Dioxide 24 mmol/L (22-29); Chloride 107 mmol/L (96-108); Cholesterol 137 mg/dL (<200); Estimated Glomerular Filt Rate 48; Glucose Random 107 mg/dL (60-115); HDL Cholesterol 36 mg/dL (>40); LDL Cholesterol Calculated 82 mg/dL (<100); Potassium 4.5 mmol/L (3.3-5.1); Sodium 137 mmol/L (135-145); Triglycerides 98 mg/dL (<150)
== END 2024-05-18 13:50 | disposition home or self-care (01) ==
LOC: HO.LAB 13:49
PROVIDERS: PCP Internal Medicine; Visit Provider Internal Medicine Medical Oncology
DX: Z00.01 Encounter for general adult medical examination with abnormal findings (principal); Z13.6 Encounter for screening for cardiovascular disorders
CPT/HCPCS: 36415; 80053; 80061; 85025

== ENCOUNTER 2024-09-05 15:07 | Outpatient (REF) | payer MEDICARE, SELFPAY ==
--- NOTE | ~2024-09-05 | XR_ITS ---
EXAMINATION: XR KNEE 3 VIEWS LEFT HISTORY: left knee pain COMPARISON: Comparison is made with the prior examination dated 12/25/2022. FINDINGS: Three views of the left knee are submitted. The patient is again noted to be status post total knee arthroplasty. The orthopedic elements are in anatomic alignment. There is no radiographic evidence of loosening. There is no fracture or dislocation. There is a large joint effusion. XR/XR knee LT 3V IMPRESSION: Status post left total knee arthroplasty. Large joint effusion. Electronically signed by: Dawood Beth MD 09/05/2024 03:57 PM EDT
--- OUTSIDE RECORDS SUMMARY | 2024-09-05 16:07 | XMS_ITS | Continuity of Care Document ---
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 Referral None recorded. Procedures None recorded. Surgeries None recorded. Imaging XR, knee, 3 view 2024 025 [facility] (Imaging), [address] [place] [address], [id number], 09/05/2024 16:01:33 Medication Orders meloxicam 7.5 mg tablet 2024 025 [id number], [address] [place], [place], [id number], 09/05/2024 13:53:13 Patient TargetsNo targets recorded. Patient InstructionsNo instructions recorded. Reason for Referral None Reported. Results Created Date Observation Date Name Description Value Unit Range Abnormal Flag Note LastModifiedBy Organization Detail LastModifiedTime 09/06/19 25 09/05/2024 XR, knee, 3 view No observ ation record ed. [facility] (Medical Records) [address] [place] [address], [id number], 09/05/2024 16:01:33 Result Notes None recorded. Problems Name Problem SNOMED Code Status Onset Date Resolution Date Notes Provider Name and Address Organization Details Recorded Time Dizziness 116293005 Active 2017 Jl Gilbert DO [address] [place] [address], [address], [facility] 8 14:10:15 Diverticu losis of sigmoid colon 623007769 Active 2018 Jl Gilbert DO [address] [place] [address], [address], [facility] 9 15:05:26 Iron deficienc y anemia 55180664 Active 2018 Jl Gilbert DO [address] [place] [address], [address], [facility] 9 15:05:28 Bilateral osteoarth ritis of knees 238720996076 107 Active 2019 Jl Gilbert DO [address] [place] [address], [address], [facility] 0 13:44:31 Postconcu ssion syndrome 74015294 Active 2019 Jl Gilbert DO [address] [place] [address], [address], [facility] 0 14:54:51 Closed fracture of malar AND/OR maxillary bones 15566867 Active 2019 Jl Gilbert DO [address] [place] [address], [address], [facility] 0 14:56:18 Polymyalg ia rheumatic a 93833616 Active 2021 Jl Gilbert, DO [address] [place] [address], [address], [facility] 2 13:37:53 Disorder of breast 25992558 Active 2017 Cancer , lymph nodes taken out, [facility] 8 12:25:35 Migraine 99891248 [facility] 12:26:02 Gastroeso phageal reflux disease 027351662 Active 2017 [facility] 8 12:26:10 Restless legs 54909204 Active 2017 [facility] 8 12:26:28 Hyperlipi demia 76338594 Active 2017 [facility] 8 12:26:54 Myalgia/m yositis - multiple 669448853 Active 2021 BELEN BEGUM [address] [place] [address], [address], [facility] 2 15:33:50 Tremor 12309286 Active 2022 Jl Gilbert DO [address] [place] [address], [address], [facility] 3 15:17:14 Acute urinary tract infection 433802655 Active 2022 Jl Gilbert DO [address] [place] [address], [address], [facility] 3 11:26:31 Stomach cramps 12414750 Active 2022 Jl Gilbert DO [address] [place] [address], [address], [facility] 3 09:36:53 Atrial tachycard ia 060846084 Active 2022 Jl Gilbert, DO [address] [place] [address], [address], [facility] 3 09:37:39 Unsteady when walking 75020272 Active 2022 Jl Gilbert DO [address] [place] [address], , [facility] 3 09:38:19 Nausea, vomiting and diarrhea 2929978 Active 2022 BELEN BEGUM [address] [place] [address], , [facility] 3 15:29:32 Liver function tests outside reference range 169556147 Active 2022 BELEN BEGUM [address] [place] [address], , [facility] 3 11:01:05 Abdominal pain 23412337 Active 2022 BELEN BEGUM [address] [place] [address], , [facility] 3 11:11:43 Cyst of uterus 118503 Active 2022 Jl Gilbert DO [address] [place] [address], [address], [facility] 3 10:42:25 Urinary incontine rie 161722819 Active 2022 Jl Gilbert DO [address] [place] [address], [address], [facility] 3 10:51:28 Dieulafoy vascular malformat ion of stomach 928601530 Active 2022 Jl Gilbert DO [address] [place] [address], [address], [facility] 3 22:13:57 Acute upper gastroint estinal hemorrhag e 79547844 Active 2022 Jl Gilbert, DO [address] [place] [address], [address], [facility] 3 22:14:28 Anemia 620040969 Active 2022 Jl Gilbert, DO [address] [place] [address], [address], [facility] 3 22:15:19 Bilateral hearing loss 12050944 Active 2022 BELEN BEGUM [address] [place] [address], [address], [facility] 3 15:04:21 Melena 5260759 Active 2022 BELEN BEGUM [address] [place] [address], [address], [facility] 3 10:41:10 Inappropr iate sinus tachycard ia 572903361 Active 2022 Jl Gilbert, DO [address] [place] [address], [address], [facility] 3 10:16:50 Gastroint estinal hemorrhag e 95511130 Active 2022 Jl Gilbert, DO [address] [place] [address], [address], [facility] 3 13:45:49 Recurrent urinary tract infection 963401740 Active 2023 Jl Gilbert DO [address] [place] [address], [address], [facility] 4 16:46:48 Synovial cyst of left knee 592468301962 102 Active 2023 Jl Gilbert [address], [address], [facility] 4 12:37:49 Dysuria 30370109 Active 2023 Jl Gilbert [address], [address], [facility] 4 11:26:29 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 243757929 Active 2023 Jl Gilbert, DO [address] [place] [address], [address], [facility] 4 16:07:14 Allergic reaction to drug 239843689 Active 2023 BELEN BEGUM [address] [place] [address], [address], [facility] 4 14:05:39 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 Jl Gilbert [address], [address], [facility] Internal [facility] 4 16:25:32 Disorder of vitamin B12 135825824 Active 2023 Jl Gilbert DO [address] [place] [address], [address], [facility] 4 16:32:02 Eczema 10046757 Active 2023 Jl Gilbert DO [address] [place] [address], [address], [facility] 4 14:35:51 Contusion of right forearm 995222409237 93686 Active 2024 Jl Gilbert DO [address] [place] [address], [address], [facility] 5 13:49:20 Pain of left knee joint 475464886999 107 Active 2024 Jl Gilbert [address], [address], [facility] 5 13:50:12 Problem Notes None recorded. Procedures Surgical History Date Name Laterality Status Provider Name and Address Organization Details Recorded Time Knee Surgery completed Vero Mercado [facility] 07/13/2017 12:27:53 Knee Surgery completed Vero Mercado [facility] 07/13/2017 12:28:28 Cholecystectomy completed Vero Mercado [facility] 07/13/2017 12:29:02 Imaging Results None recorded. Procedure Notes None recorded. Medical Equipment None Reported. Allergies Allergen ID Allergen Name Allergen Category Reaction Reaction Severity Criticality Documentation Date Start Date Code Code System Note Provider Name and Address Organization Details Recorded Time 2387 Lyrica medicatio n Not available Not available Not available 02/01/2018 53235 1 RxNorm leg pain, sleep ing all the time Vero shen [facility] 8 13:32:10 550 gabapenti n medicatio n Not available Not available Not available 07/13/2017 39199 RxNorm Light head, numbn ess in hands Vero shen [facility] 8 12:22:40 551 Product containin g penicilli n (product) medicatio n Not available Not available Not available 07/13/2017 64789 8001 SNOMED Vero shen [facility] 8 12:22:54 552 Product containin g 3-hydroxy -3-methyl glutaryl- coenzyme A reductase inhibitor (product) medicatio n Not available Not available Not available 07/13/2017 55081 009 SNOMED Vero shen [facility] 8 12:23:15 553 Levaquin medicatio n Not available Not available Not available 07/13/2017 87401 2 RxNorm Vero shen [facility] 8 12:23:26 8253 Gemtesa medicatio n rash Not available Not available 12/06/20232023 96530 16 RxNorm Ashley shen [facility] 4 13:44:53 8254 Substance with sulfonami de structure and antibacte rial mechanism of action (substanc e) medicatio n Not available Not available Not available 12/06/2023 11709 8003 SNOMED BELEN BEGUM [address] [place], [address] , [facility] 4 14:06:19 Medications Name Sig Start Date [...] day by oral route for 14 days. 11/21 /2022 completed Not Available Not Available Not Available [...] No t Available meloxicam 7.5 mg tablet Take 1 tablet every day by oral route for 14 days. 2024 active Not Available Not Available Not Avai lable methenamine hippurate 1 gram tablet TAKE 1 [...] Relief 50 mcg/actuati on nasal spray,suspe nsion [place] 1 spray every day by intranasa l route for 30 days. 10/02 completed Not Available Not Available Not Available Shingrix (PF) 50 mcg/0.5 mL intramuscul ar suspension, kit 07/09 completed Not Available Not Available Not Available Fluad Quad 2774-4928(6 5yr up)(PF) 60 mcg (15 mcg x 4)/0.5mL IM syringe ADM 0.5ML IM UTD 03/27 completed Not Available Not Available Not Available BinaxNOW COVID-19 Ag Self Test kit TEST DIRECTED TODAY 05/08 completed Not Available Not Available Not Available Vitals Date Recorded Body height Body mass index (BMI) Body weight Systolic blood pressure Diastolic blood pressure Provider Name and Address Organization Details Last Updated DateTime 09/05/2024 162.56 cm 24.4 kg/m2 84927.12 g 132 mm[Hg] 73 mm[Hg] Kell Jamil [facility] 13:36:06 Social History Question Answer Notes LastModified by Organizat ion Details LastModified Time Tobacco Smoking Status Former Smoker Not Available [employer] 02/27/2020 03:36:23 What Was The Date Of Your Most Recent Tobacco Screening? 09/05/2024 [email or web address] Information not available 09/05/2024 How Many Years Have You Smoked Tobacco? 12 [id number] Information not available 02/27/2020 Sex: Unknown Functional Status Question Answer Note LastModified by Organization D etails LastModified Time Do you or have you ever used any other forms of tobacco or nicotine? No Information not available 09/26/2021 Mental Status None recorded. Family History Nothing Reported. Medical History No medical history recorded. Gynecological HistoryNo gynecological history recorded. Obstetrics History GPAL:G 0 P 0 0 0 0 Immunizations Vaccine Type Date Status Note Provider Nam e and Address Organization Details Recorded Time Tdap 03/23/20 20 completed Radha shen [facility] 01/06/2021 14:52:31 Pneumococcal conjugate PCV 13 02/25/20 17 completed Michelle shen [facility] 01/06/2021 14:58:01 COVID-19, mRNA, LNP-S, PF, 100 mcg/0.5mL dose or 50 mcg/0.25mL dose 06/26/19 21 completed Michelle shen [facility] 01/06/2021 14:58:48 COVID-19, mRNA, LNP-S, PF, 100 mcg/0.5mL dose or 50 mcg/0.25mL dose 05/28/19 21 completed Jl Gilbert, DO [address] [place], [address], [facility] 07/14/2021 16:25:57 COVID-19, mRNA, LNP-S, PF, 100 mcg/0.5mL dose or 50 mcg/0.25mL dose 04/07/20 21 completed Jl Gilbert DO [address] [place] [address], [address], [facility] 07/14/2021 16:26:04 Influenza, split virus, quadrivalent, preservative 04/07/20 21 [facility] 09/26/2021 09:34:49 influenza, unspecified formulation 04/03/20 22 completed Jl Gilbert DO [address] [place] [address], [address], [facility] 05/15/2022 14:49:17 Influenza, split virus, quadrivalent, preservative 02/17/20 18 completed [facility] 06/08/2018 14:33:06 pneumococcal polysaccharide PPV23 06/25/19 19 completed Jl Gilbert DO [address] [place] [address], [address], [facility] 06/25/2018 10:41:36 zoster live 11/05/19 19 completed Jl Gilbert DO [address] [place] [address], [address], [facility] 11/05/2018 10:43:34 zoster live 01/14/20 19 [facility] 01/16/2019 08:06:43 Influenza, adjuvanted, trivalent, PF 01/29/20 19 completed [facility] 01/30/2019 12:01:02 Influenza, split virus, quadrivalent, preservative 01/29/20 20 completed Jl Gilbert DO [address] [place] [address], [address], [facility] 04/16/2020 14:30:36 Influenza, split virus, quadrivalent, preservative 02/19/20 17 [facility] 07/13/2017 13:26:49 Past Encounters Encounter ID Performer Location Encounter Start Date Encounter Closed Date Diagnosis/Indication Diagnosis SNOMED-CT Code Diagnosis ICD10 Code Diagnosis Note [id number] DO Yanely Koch [facility] [address] [address] 09/05/2024 13:29:17 09/05/2024 13:56:12 Hyperlipidemia 07969707 E78.2 will rechk at next lab Depression screening 171 354851 Z13.31 neg Iron defic iency anemia 76999053 D50.9 doing fantastic with her iron infusions has been stable at 13.5 the last few months skipping iron infusion this month per dr howell Contusion of right forearm 5451663106 9767716 S50.11XA noted healing but still sore will use tylenol prn Pain of le ft knee joint 6037237532 74293 M25.562 Health Concerns Section Related Observation LastModified by Organization Detai ls LastModified Time None Recorded Concern Status LastModified by Organization Details LastModified Time None Recorded Payers Encounter Date Sequence Insurance Name Policy Number Policy Barnhart Covered Member ID Barnhart Member ID Guarantor Name 09/05/2024 1 [place] Renita Ritchie [id number] Renita Ritchie 09/05/2024 2 [place] [id number] Renita Ritchie [id number] Renita Ritchie Notes Date Note Type Note Provider Name and Address Organization Details Recorded Time 09/06/19 25 text/htm l AnemiaReported bypatient.Timing:better Associated Symptoms:no shortness of breath; no chest pain; no abdominal pain; no nausea; no vomiting; no melena; no blood in stool; no weakness; no fatigue; no palpitations; no excessive sweating; normal nails; tolerant of cold; no nonfood cravings; no behavior problems; no symptoms of peripheral neuropathy; normal balance; no jaundice; no pallor; no weight lossCare Management - HyperlipidemiaReported bypatient.Control:usually well controlled; improving; at goal Complications:no coronary artery disease; no heart attack; no cardiovascular disease; no pancreatitis; no stroke here for rechk feeling well blood ct is up to 13 or 14 but we have no recordsaid energy is goodhad a fall a few weeks ago injured right arm with resultant abrasions and bruising was told she had carpal tunnel synd in both handsgiven steroid inj and has been in good shape by dr mynor Gilbert, DO [address], [place], [address], [facility] 09/05/2024 13:53:26 OBGyn Episode No OBEpisode recorded.
--- OUTSIDE RECORDS SUMMARY | 2024-09-05 16:07 | XMS_ITS | Data Portability ---
Author Organization [facility] Home Service Address [address] [place] [address] Assessment Encounter Date Assessment Date Assessment LastModified by Organization Details LastModified Time 07/26/2023 07/26/2023 [id number] [place] [id number] ([employer]) [facility] MODERATE MUST MEET 2 OUT OF 3 [...] COVERED Not available 07/26/2023 12:38:48 12/20/2023 12/20/2023 [id number] [place] [address] ([employer]) [facility] MODERATE MUST MEET 2 OUT OF 3 [...] healthy living. [email or web address] Not available 03/22/2024 10:07:08 09/05/2024 09/05/2024 [id number] [place] [id number] ([employer]) [facility] MODERATE MUST MEET 2 OUT OF [...] Not available Lab lipid panel, blood 2023 024 [facility], [address] [place] [address], [id number], 05/19/2024 13:35:18 CBC w/ auto diff 2023 024 [facility], [address] [place] [address], [address], 05/19/2024 13:35:18 CMP, serum or plasma 2023 024 [facility], [address] [place] [address], [address], 05/19/2024 13:35:18 CBC 2023 024 [facility], [address] [place] [address], [address], 08/10/2023 15:29:32 CBC 2023 024 [facility], [address] [place] [address], [address], 12/21/2023 16:16:00 CBC 2023 024 [facility], [address] [place] [address], [address], 02/24/2024 11:36:09 CBC 2023 025 [facility], [address] [place] [address], [address], 02/24/2024 11:36:08 Referral None recorded. Procedures None recorded. Surgeries None recorded. Imaging XR, knee, 3 view 2024 025 [facility] (Imaging), [address] [place] [address], [id number], 09/05/2024 16:01:33 Medication Orders meloxicam 7.5 mg tablet 2024 025 [id number], [address] [place] [address], [id number], 09/05/2024 13:53:13 prednison e 10 mg tablet 2023 024 [facility] Not available 12/20/2023 13:50:57 hydroxyzi ne HCl 25 mg tablet 2023 024 [facility] Not available 12/06/2023 14:09:18 Patient TargetsNo targets recorded. Patient Instructions Encounter Date Encounter Id Patient Instructions Last Modified By Organization Details Last Modified Time 07/26/2023 [id number] iron deficiency anemia: care instructions Not available 07/26/2023 12:40:46 12/20/2023 [id number] polymyalgia rheumatica: care instructions [facility] Not available 12/20/2023 14:20:50 anemia: care instructions [facility] Not available 12/20/2023 14:20:50 iron deficiency anemia: care instructions [facility] Not available 12/20/2023 14:20:50 03/27/2024 [id number] advance care planning: care instructions [facility] Not available 03/27/2024 14:40:47 Discussed and explained advance directives such as standard forms to the {{patient caregiv er patient and caregiver}}. Face to face discussion lasted for a duration of ___ minutes. [facility] Not available 03/22/2024 10:07:08 Reason for Referral None Reported. Results Created Date Observation Date Name Description Value Unit Range Abnormal Flag Note LastModifiedBy Organization Detail LastModifiedTime 07/16/19 24 07/16/2023 , [facility] No observ ation record ed. [facility] (Medical Records) [address] [place], [address], 07/16/2023 14:27:12 07/16/19 24 07/16/2023 XR, chest , 2 view No observ ation record ed. [facility] (Medical Records) [address] [place], [address], 07/16/2023 15:32:13 12/29/19 24 12/15/2023 imagi ng/di agnos tic resul t No observ ation record ed. [facility] [address] [place], [address], 12/29/2023 15:03:51 09/06/19 25 09/05/2024 XR, knee, 3 view No observ ation record ed. [facility] (Medical Records) [address] [place], [address], 09/05/2024 16:01:33 Result Notes None recorded. Problems Name Problem SNOMED Code Status Onset Date Resolution Date Notes Provider Name and Address Organization Details Recorded Time Dizziness 948050094 Active 2017 Jl Gilbert DO [address] [place] [address], [address], [facility] 8 14:10:15 Diverticu losis of sigmoid colon 272496398 Active 2018 Jl Gilbert DO [address] [place] [address], [address], [facility] 9 15:05:26 Iron deficienc y anemia 40836469 Active 2018 Jl Gilbert DO [address] [place] [address], [address], [facility] 9 15:05:28 Bilateral osteoarth ritis of knees 421328174108 107 Active 2019 Jl Gilbert DO [address] [place] [address], [address], [facility] 0 13:44:31 Postconcu ssion syndrome 72180886 Active 2019 Jl Gilbert DO [address] [place] [address], [address], [facility] 0 14:54:51 Closed fracture of malar AND/OR maxillary bones 97159173 Active 2019 Jl Gilbert DO [address] [place] [address], [address], [facility] 0 14:56:18 Polymyalg ia rheumatic a 72285233 Active 2021 Jl Gilbert DO [address] [place] [address], [address], [facility] 2 13:37:53 Disorder of breast 97681503 Active 2017 Cancer , lymph nodes taken out, Chemo/ Radiat ion Vero shen [facility] 8 12:25:35 Migraine 46939079 Active [address] [facility] 8 12:26:02 Gastroeso phageal reflux disease 931729347 Active 2017 [facility] 8 12:26:10 Restless legs 12628832 Active 2017 Vero shen [facility] 8 12:26:28 Hyperlipi demia 55469147 Active 2017 [facility] 8 12:26:54 Myalgia/m yositis - multiple 957041795 Active 2021 GINNY PIEDRA, [address], [address], [facility] 2 15:33:50 Tremor 82824587 Active 2022 Jl Gilbert, DO [address] [place] [address], [address], [facility] 3 15:17:14 Acute urinary tract infection 993265215 Active 2022 Jl Gilbert, DO [address] [place] [address], [address], [facility] 3 11:26:31 Stomach cramps 18174195 Active 2022 Jl Gilbert DO [address] [place] [address], [address], [facility] 3 09:36:53 Atrial tachycard ia 276000121 Active 2022 Jl Gilbert, DO [address] [place] [address], [address], [facility] 3 09:37:39 Unsteady when walking 93170632 Active 2022 Jl Gilbert DO [address] [place] [address], [address], [facility] 3 09:38:19 Nausea, vomiting and diarrhea 2951309 Active 2022 BELEN BEGUM [address] [place] [address], [address], [facility] 3 15:29:32 Liver function tests outside reference range 350182202 Active 2022 BELEN BEGUM [address] [place] [address], [address], [facility] 3 11:01:05 Abdominal pain 57134550 Active 2022 BELEN BEGUM [address] [place] [address], [address], [facility] 3 11:11:43 Cyst of uterus 851011 Active 2022 Jl Gilbert DO [address] [place] [address], [address], [facility] 3 10:42:25 Urinary incontine are 376366628 Active 2022 Jl Gilbert DO [address] [place] [address], [address], [facility] 3 10:51:28 Dieulafoy vascular malformat ion of stomach 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 Active 2022 Jl Gilbert DO [address] [place] [address], [address], [facility] 3 22:13:57 Acute upper gastroint estinal hemorrhag e 25237276 Active 2022 Jl Gilbert DO [address] [place] [address], [address], [facility] 3 22:14:28 Anemia 984456551 Active 2022 Jl Gilbert DO [address] [place] [address], [address], [facility] 3 22:15:19 Bilateral hearing loss 25069612 Active 2022 BELEN BEGUM [address] [place] [address], [address], [facility] 3 15:04:21 Melena 5890180 Active 2022 BELEN BEGUM [address] [place] [address], [address], [facility] 3 10:41:10 Inappropr iate sinus tachycard ia 159355848 Active 2022 Jl Gilbert, [address] [place] [address], [address], [facility] 3 10:16:50 Gastroint estinal hemorrhag e 26524664 Active 2022 Jl Gilbert DO [address] [place] [address], [address], [facility] 3 13:45:49 Recurrent urinary tract infection 929617466 Active 2023 Jl Gilbert DO [address] [place] [address], [address], [facility] 4 16:46:48 Synovial cyst of left knee 803222810859 102 Active 2023 Jl Gilbert DO [address] [place] [address], [address], [facility] 4 12:37:49 Dysuria 59081703 Active 2023 Jl Gilbert DO [address] [place] [address], [address], [facility] 4 11:26:29 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 256347218 Active 2023 Jl Gilbert DO [address] [place] [address], [address], [facility] 4 16:07:14 Allergic reaction to drug 998302513 Active 2023 BELEN BEGUM [address] [place] [address], [address], [facility] 4 14:05:39 Facial eczema 612548147 Active 2023 Jl Gilbert, DO [address] [place] [address], [address], [facility] 4 16:25:32 Disorder of vitamin B12 160138573 Active 2023 Jl Gilbert, DO [address] [place] [address], [address], [facility] 4 16:32:02 Eczema 59787428 Active 2023 Jl Gilbert, DO [address] [place] [address], [address], [facility] 4 14:35:51 Contusion of right forearm 225784024235 99807 Active 2024 Jl Gilbert, [address], [address], [facility] 5 13:49:20 Pain of left knee joint 530494955168 107 Active 2024 Jl Gilbert, [address], [address], [facility] 5 13:50:12 Problem Notes None recorded. Procedures Surgical History Date Name Laterality Status Provider Name and Address Organization Details Recorded Time Knee Surgery completed [facility] 07/13/2017 12:27:53 Knee Surgery completed [facility] 07/13/2017 12:28:28 Cholecystectomy completed [facility] 07/13/2017 12:29:02 Imaging Results Imaging Date Name Status LastModified by Organiz ation Details LastModified Time 07/16/2023 US, lower extremity completed [facility] (Medical Records) [address] [place], [address], 07/16/2023 14:27:12 07/16/2023 XR, chest, 2 view completed [facility] (Medical Records) [address] [place], [address], 07/16/2023 15:32:13 12/15/2023 imaging/diagno stic result completed [facility] [address] [place], [address], 12/29/2023 15:03:51 09/05/2024 XR, knee, 3 view active [facility] (Medical Records) [address] [place], [address], 09/05/2024 16:01:33 Procedure Notes None recorded. Medical Equipment None Reported. Allergies Allergen ID Allergen Name Allergen Category Reaction Reaction Severity Criticality Documentation Date Start Date Code Code System Note Provider Name and Address Organization Details Recorded Time 5053 Lyrica medicatio n Not available Not available Not available 02/01/2018 99506 1 RxNorm leg pain, sleep ing all the time Vero shen [facility] 8 13:32:10 550 gabapenti n medicatio n Not available Not available Not available 07/13/2017 11547 RxNorm Light head, numbn ess in hands Vero shen [facility] 8 12:22:40 551 Product containin g penicilli n (product) medicatio n Not available Not available Not available 07/13/2017 [address] [facility] 8 12:22:54 552 Product containin g 3-hydroxy -3-methyl glutaryl- coenzyme A reductase inhibitor (product) medicatio n Not available Not available Not available 07/13/2017 [address] [facility] 8 12:23:15 553 Levaquin medicatio n Not available Not available Not available 07/13/2017 [address] [facility] 8 12:23:26 8253 Gemtesa medicatio n rash Not available Not available 12/06/20232023 23958 16 RxNorm Ashley Gerardo hermelinda [facility] 4 13:44:53 8254 Substance with sulfonami de structure and antibacte rial mechanism of action (substanc e) medicatio n Not available Not available Not available 12/06/2023 09890 8003 BELEN HODGSON [address] [place], [address], [facility] 4 14:06:19 Medications Name Sig [...] Relief 50 mcg/actuati on nasal spray,suspe nsion [place] 1 spray every day by intranasa l [...] Updated DateTime 4 162.56 cm 24.3 kg/m2 87796.0 4 g 85 /min 96 % 96 % 122 mm[Hg] 76 mm[Hg] Ashley Gerardo [facility] 4 12:14:04 Date Recorded Body height Body mass index (BMI) Body weight Heart rate Oxygen saturation Oxygen saturation in Arterial blood by Pulse oximetry Systolic blood pressure Diastolic blood pressure Provider Name and Address Organization Details Last Updated DateTime 4 162.56 cm 24 kg/m2 37092.2 9 g 74 /min 98 % 98 % 128 mm[Hg] 80 mm[Hg] Ashley Gerardo [facility] 4 13:46:47 Date Recorded Body height Body mass index (BMI) Body weight Heart rate Oxygen saturation Oxygen saturation in Arterial blood by Pulse oximetry Systolic blood pressure Diastolic blood pressure Provider Name and Address Organization Details Last Updated DateTime 4 162.56 cm 25.5 kg/m2 68226.4 7 g 74 /min 99 % 99 % 140 mm[Hg] 86 mm[Hg] Alexx Arellano [facility] 4 13:51:21 Date Recorded Body height Body mass index (BMI) Body weight Heart rate Oxygen saturation Oxygen saturation in Arterial blood by Pulse oximetry Systolic blood pressure Diastolic blood pressure Provider Name and Address Organization Details Last Updated DateTime 4 162.56 cm 24.5 kg/m2 74343.7 1 g 74 /min 99 % 99 % 162 mm[Hg] 84 mm[Hg] Jl Gilbert, [address] [place], [address], [facility] 4 14:05:31 Date Recorded Body height Body mass index (BMI) Body weight Systolic blood pressure Diastolic blood pressure Provider Name and Address Organization Details Last Updated DateTime 09/05/2024 162.56 cm 24.4 kg/m2 11091.12 g 132 mm[Hg] 73 mm[Hg] Kell Jamil [facility] 5 13:36:06 Social History Question Answer Notes LastModified by Organizat ion Details LastModified Time Tobacco Smoking Status Former Smoker Not Available [employer] 02/27/2020 03:36:23 What Was The Date Of Your Most Recent Tobacco Screening? 09/05/2024 [email or web address] Information not available 09/05/2024 How Many Years Have You Smoked Tobacco? 12 [id number] Information not available 02/27/2020 Sex: Unknown Functional [...] Recorded Time Tdap 03/23/20 20 [address] [facility] 01/06/2021 14:52:31 Pneumococcal conjugate PCV 13 02/25/20 17 completed Michelle shen [facility] 01/06/2021 14:58:01 COVID-19, mRNA, LNP-S, PF, 100 mcg/0.5mL dose or 50 mcg/0.25mL dose 06/26/[address] [facility] 01/06/2021 14:58:48 COVID-19, mRNA, LNP-S, PF, 100 mcg/0.5mL dose or 50 mcg/0.25mL dose 05/28/19 21 completed Jl Gilbert DO [address] [place] [address], [address], [facility] 07/14/2021 16:25:57 COVID-19, mRNA, LNP-S, PF, 100 mcg/0.5mL dose or 50 mcg/0.25mL dose 04/07/20 21 completed Jl Gilbert DO [address] [place] [address], [address], [facility] 07/14/2021 16:26:04 Influenza, split virus, quadrivalent, preservative 04/07/20 21 [facility] 09/26/2021 09:34:49 influenza, unspecified formulation 04/03/20 22 completed Jl Gilbert DO [address] [place] [address], [address], [facility] 05/15/2022 14:49:17 Influenza, split virus, quadrivalent, preservative 02/17/20 18 completed [facility] 06/08/2018 14:33:06 pneumococcal polysaccharide PPV23 06/25/19 19 completed Jl Gilbert DO [address] [place] [address], [address], [facility] 06/25/2018 10:41:36 zoster live 11/05/19 19 completed Jl Gilbert DO [address] [place] [address], [address], [facility] 11/05/2018 10:43:34 zoster live 01/14/20 19 [facility] 01/16/2019 08:06:43 Influenza, adjuvanted, trivalent, PF 01/29/20 19 completed [facility] 01/30/2019 12:01:02 Influenza, split virus, quadrivalent, preservative 01/29/20 20 completed Jl Gilbert DO [address] [place] [address], [address], [facility] 04/16/2020 14:30:36 Influenza, split virus, quadrivalent, preservative 02/19/20 17 completed Vero Mercado [facility] 07/13/2017 13:26:49 Past Encounters Encounter ID Performer Location Encounter Start Date Encounter Closed Date Diagnosis/Indication Diagnosis SNOMED-CT Code Diagnosis ICD10 Code Diagnosis Note [id number] [address] [facility],[place] [address] 08/16/2017 13:33:31 08/16/2017 14:10:36 Chronic kidney disease stage 2 645979310 N18.2 unclear etiology, has been present since at least 07/2015, though her older records are in a second volume. will recheck labs, reccommend being very well hydrated handwritte n lab for CMP, lipids, cbc will need to pull second volume to determine when sx started Liver func tion tests outside reference range 529311488 R94.5 handwritte n lab for CMP, lipids, cbc, hcv, hbv Generalize d anxiety disorder 93739960 F41.1 on fluoxetine , for many years Restless legs 01480640 G 25.81 takes lyrica with good effect Upper resp iratory infection 11852507 J06.9 likely viral, recommend fluids, rest, mucinex-dm , sx likely will last 7-10 days, f/u if sx worsen or persist there after. [id number] [facility] [address] [facility], [place] [address] 02/01/2018 13:22:59 02/01/2018 14:08:40 Chronic kidney disease stage 2 309058121 N18.2 unclear etiology, has been present since at least 07/2015, though her older records are in a second volume. will recheck labs, reccommend being very well hydrated worsened in july labs, will recheck will dc prilosec due to possible renail impairment Liver func tion tests outside reference range 819604672 R94.5 improved in july labs Generalize d anxiety disorder 10846091 F41.1 on fluoxetine , for many years Restless legs 68643889 G 25.81 will check levels today lyrica has been d/cd will trial clonazepam Hyperlipidemia 99914723 E78.5 borderline , will recheck Gastroesop hageal reflux disease 565252601 K21.9 [id number] Jl Gilbert [facility] [address] [facility], [place] [address] 02/23/2018 13:33:51 02/23/2018 14:24:06 Depressive disorder 64325496 F32.0 stable migraines also stable Unintentio nal weight loss 325034606 R63.4 with abdominal pain and anemia wgt loss >40lbs Iron defic iency anemia 87942657 D50.9 [id number] Jl Gilbert [facility] [address] [facility], [place] [address] 03/11/2018 11:10:51 03/11/2018 13:27:39 Anemia 587380464 D64.9 will cont with iron until eval as below Epigastric pain 76055582 R10.13 will need to have GI eval and will need EGD etc and colonoscop y given the patients sgt loss of 40 lbs and anemia and evidence of gastric abnormalit y Mass of ri ght adrenal gland 7407014033 9800917 E27.8 per radiologis t needs the ulstrasoun d done to confirm cyst [id number] Jl Gilbert [facility] [address] [facility], [place] [address] 06/08/2018 14:06:13 06/08/2018 15:18:39 Adult health examination 336671835 Z00.00 Abdominal pain 48967896 R10.9 believe this from diverticul osis not itis and that she just has some smoulderin g inflammati on this would also explain her mild anemia with no evid or source of bleed Iron defic iency anemia 94645782 D50.9 need to rechk levels she is taking iron daily this also acccounts for her RLS getting better Diverticul osis of sigmoid colon 876568964 K57.30 sanchez adjust her diet and add slowly metamucil [id number] Jl Gilbert [facility] [address] [facility],[place] [address] 07/13/2018 13:57:33 07/13/2018 14:44:23 Malaise and fatigue 388412124 R53.83 wondering if her blood count has dropped again worried that she is bleeding again recheck cbc iron etc Iron defic iency anemia 33356669 D50.9 need to rechk levels she is taking iron daily but this may not be enough her RLS are back again and is usu indicative of low iron Restless legs 93924082 G 25.81 check iron [id number] Jl Gilbert [facility] [address] [facility], [place] [address] 07/22/2018 11:43:48 07/22/2018 15:27:37 Iron deficiency anemia 70085469 D50.9 is from a gi bleed as evidenced from her heme positive occult stool cards X3 will need to be seen again by dr deon barnes and will need rescope and perhaps egd if thoughts of [place] [id number] Jl Gilbert [facility] [address] [facility], [place] [address] 12/28/2018 14:42:44 12/28/2018 15:14:54 Cough 75431057 R05 doesn't seem infection, suspect allergies/ PND will r/o atypical pna - get cxr Allergic rhinitis 377683 04 J30.9 allergy treatments Insomnia 830929659 G47.0 0 perhaps xyzal will help with this trial for a couple weeks and see if further treatment is needed [id number] Jl Gilbert [facility] [address] [facility], [place] [address] 07/10/2019 13:28:38 07/10/2019 14:03:55 Adult health examination 980739395 Z00.01 she has gained some weight back thankfully Iron defic iency anemia 67453939 D50.9 is from a gi bleed as evidenced from her heme positive occult stool cards X3 she feels markedly better after the IRON infusions will need to be seen again by dr deon barnes and will be followed [id number] Jl Gilbert [facility] [address] [facility], [facility] [place] [address] 10/03/2019 15:17:44 10/03/2019 16:27:14 Pain of right calf [id number] 314790 M79.661 the patient reports swelling, warmth in the right calf and tenderness to palpation Edema of l ower extremity 885812817 R60.0 swelling of bilateral knees will send back to ortho [id number] Jl Gilbert [facility] [address] [facility],[place] [address] 01/08/2020 13:28:57 01/08/2020 14:18:35 Hyperlipidemia 08446039 E78.5 will rechk at next lab Iron defic iency anemia 80656905 D50.9 is from a gi bleed as evidenced from her heme positive occult stool cards X3 she feels markedly better after the IRON infusions has finished her iron infusions but will follow the hematologi st in 3 mo will need to be seen again by dr lynda barnes and will be followed Diverticul osis of sigmoid colon 609182060 K57.30 sanchez adjust her diet and add slowly metamucil Prerenal azotemia 275168 001 N25.9 [id number] Jl Gilbert [facility] [address] [facility],[place] [address] 03/27/2020 13:25:39 03/27/2020 13:56:50 Migraine 92927497 G43.909 helped with the sumatripta n, increased after the injury Dizziness 745782840 R42 the patient doing much better today Vertigo 023994681 R42 [place] [id number] Jl Gilbert [facility] [address] [facility],[place] [address] 04/16/2020 14:08:59 04/16/2020 15:14:12 Dizziness 698600415 R42 part of her post concussion synd Iron defic iency anemia 86562369 D50.9 is from a gi bleed as evidenced from her heme positive occult stool cards X3 she feels markedly better after the IRON infusions has finished her iron infusions but will follow the hematologi st in 3 mo will need to be seen again by dr lynda barnes and will be followed Gastroesop hageal reflux disease 394665329 K21.9 stable on current meds 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 relates is slowly getting better but still has some lingering symptoms and Closed fra cture of malar AND/OR maxillary bones 17430223 S02.400A slowly healing and doing better ent and dental both feel no surgery is needed [id number] Jl Gilbert, [facility] [address] [facility],[place] [address] 08/26/2020 13:25:05 08/26/2020 14:40:35 Iron deficiency anemia 33055854 D50.9 is from a gi bleed as evidenced from her heme positive occult stool cards X3 she feels markedly better after the IRON infusions has finished her iron infusions but will follow the hematologi st in 2 weeks will be seen again by dr lynda barnes and will be followed await lab work states does feel good now and states she usu knows when cbc decreases Diverticul osis of sigmoid colon 309825594 K57.30 has adjust her diet and cont metamucil Dizziness 811695748 R42 finally resolved now post concuss [id number] Jl Gilbert, [facility] [address] [facility],[place] [address] 01/08/2021 13:20:59 01/08/2021 14:46:00 Mass of right adrenal gland 9670498887 7023816 E27.8 per radiologis t needs the ulstrasoun d done to confirm cyst Depressive disorder 3548 9007 F32.0 stable migraines also stable Closed fra cture of malar AND/OR maxillary bones 73002345 S02.400A slowly healing and doing better ent and dental both feel no surgery is needed Iron defic iency anemia 75826140 D50.9 is from a gi bleed as evidenced from her heme positive occult stool cards X3 she feels markedly better after the IRON infusions has finished her iron infusions but will follow the hematologi st in 2 weeks will be seen again by dr howell soon and will be followed await lab work states does feel good now and states she usu knows when cbc decreases Hyperlipidemia 64544790 E78.5 will rechk at next lab Gastroesop hageal reflux disease 704419555 K21.9 stable on current meds Bilateral osteoarthritis of knees 3999933639 52626 M17.0 having pain around prosthetic swe will try some meloxicam [id number] Jl Gilbert [facility] [address] [facility],[place] [address] 05/14/2021 08:12:09 05/16/2021 13:11:42 Iron deficiency anemia 28253065 D50.9 she feels a little better after the IRON infusions legs less weak still is easily tired has finished her iron infusions but will follow the hematologi st in 2 weeks will be seen again by dr howell soon and will be followed await lab work states does feel good now and states she usu knows when cbc decreasesg iven the diarrhea we will need to have her see a GI specialist Restless legs 76696840 G 25.81 check iron Diverticul osis of sigmoid colon 145094410 K57.30 has adjust her diet and cont metamucil Mass of ri ght adrenal gland 5539227752 3629481 E27.8 per radiologis t needs the ultrasound done to confirm cyst Depressive disorder 3548 9007 F32.0 stable migraines also stable Closed fra cture of malar AND/OR maxillary bones 99759823 S02.400A stable and doing better ent and dental both feel no surgery is needed Migraine 85968588 G43.90 9 has been stable but ran out of sumatripta n [id number] Jl Gilbert [facility] [address] [facility],[place] [address] 07/14/2021 16:17:28 07/15/2021 11:02:41 Diverticulosis of colon 370750911 K57.30 cont to improve and eating good and bowels are much better she will call andreas if her pain returns in her LLQ or fever or both [id number] Jl Gilbert [facility] [address] [facility],[place] [address] 09/26/2021 15:51:14 09/26/2021 16:24:35 Hyperlipidemia 17380271 E78.5 will rechk at next lab Gastroesop hageal reflux disease 013117238 K21.9 stable on current meds Iron defic iency anemia 40301093 D50.9 doing much bettereati ng better PRIOR she feels a little better after the IRON infusions legs less weak still is easily tired has finished her iron infusions but will follow the hematologi st in 2 weeks will be seen again by dr lynda barnes and will be followed await lab work states does feel good now and states she usu knows when cbc decreasesg iven the diarrhea we will need to have her see a GI specialist Advance care planning 71 8588216 Z71.89 done [id number] Jl Gilbert DO [facility] [address] [facility] [address],[place] [address] 12/19/2021 13:31:27 12/19/2021 14:33:24 Migraine 72775776 G43.909 has been stable but ran out of sumatripta n Advance care planning 71 5489451 Z71.89 Has on file with [facility] Polymyalgi a rheumatica 69861356 M35.3 we will begin to slowly taper the prednisone will have been on pred 40mg for one month on dec 5will decrease to 35 mg after the weekend and see how she doeswill get an esr after a couple [id number] Jl Gilbert DO [facility] [address] [facility] [address],[place] [address] 01/16/2022 16:17:09 01/19/2022 09:59:46 Polymyalgia rheumatica 34783776 M35.3 she feels great and is doing wonderfule sr was 80 and is now down to 4appetite is too good Bilateral osteoarthritis of knees 3004059751 52855 M17.0 is feeling great Diverticul osis of sigmoid colon 743393819 K57.30 has adjust her diet and cont metamucil Gastroesop hageal reflux disease 818003009 K21.9 stable on current meds Iron defic iency anemia 52500705 D50.9 doing much bettereati ng better PRIOR she feels a little better after the IRON infusions legs less weak still is easily tired has finished her iron infusions but will follow the hematologi st in 2 weeks will be seen again by dr lynda soon and will be followed await lab work states does feel good now and states she usu knows when cbc decreasesg iven the diarrhea we will need to have her see a GI specialist [id number] Jl Gilbert [facility] [address] [facility] [address],[place] [address] 03/16/2022 15:06:22 03/16/2022 15:38:34 Polymyalgia rheumatica 18089726 M35.3 she feels great and is doing wonderfule sr was 80 and is now down to 4 and last week 7 so is down to her last dose and now dc we will rechk a esr in few weeksappet ite is too good she will call if her sx return and we will do quick pred pulse dosewill see in spring [id number] Jl Gilbert [facility] [address] [facility] [facility] [place] [address] 05/15/2022 14:37:24 05/15/2022 15:28:13 Iron deficiency anemia 11557741 D50.9 now her symptoms are mimicing her prior severe iron def anemia we will check lab now and have her see dr howell andreas 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 per radiologis t needs the ultrasound done to confirm cyst Polymyalgi a rheumatica 99924999 M35.3 she feels great and is doing wonderfule sr was 80 and is now down to 4 and last week 7 so is down to her last dose and now dc we will rechk a esr in few weeksappet ite is too good she will call if her sx return and we will do quick pred pulse dosewill see in spring Depressive disorder 0950 7429 F32.0 stable migraines also stable Closed fra cture of malar AND/OR maxillary bones 18966993 S02.400A stable and doing better ent and dental both feel no surgery is needed Advance care planning 71 3381241 Z71.89 Has on file with [facility] [id number] Jl Gilbert [facility] [address] [facility] [address],[place] [address] 07/01/2022 14:20:51 07/01/2022 15:27:01 Polymyalgia rheumatica 21414572 M35.3 she feels great and is doing wonderfule sr was 80 and is now down to 4 and last week 7 so is down to her last dose and now dc we will rechk a esr in few weeksappet ite is too good she will call if her sx return and we will do quick pred pulse dosewill see in spring Advance care planning 71 0635542 Z71.89 Has on file with [facility] Iron defic iency anemia 51172695 D50.9 now wondering if iron def has returned and is causing the tremor in handswe will rechk in lab now Tremor 49054717 R25.1 unsure etiol could be from iron def or ?pred taper ? no med that are new etcwill chk lab now if the labe is negative then we should try a beta clifford [id number] Jl Gilbert DO [facility] [address] [facility],[place] [address] 08/11/2022 10:24:40 08/11/2022 12:19:51 Adult health examination 385188749 Z00.00 has noticed increased fatigue as of late Acute urin mahesh tract infection 193579353 N39.0 Atrial fibrillation 4943 6004 I48.91 will initiate metoprolol and put her on asa until definitive dx we obtained tentative dx by exam and by Esmer [id number] Jl Gilbert DO [facility] [address] [facility],[place] [address] 08/28/2022 09:00:48 08/28/2022 11:10:24 Iron deficiency anemia 39510551 D50.9 cbc normal iron level is also goodwillst op iron supp she has been having GI upset Stomach cramps 29018623 R10.9 prob secondary to sulfa med now feels better Atrial tachycardia 96317 6006 I47.1 we will have her cont the metoprolol low dose and see her in october Unsteady when walking 22 171175 R26.89 will get a eval done [id number] lJ Gilbert [facility] [address] [facility],[place] [address] 09/14/2022 09:12:26 09/14/2022 11:23:12 Abdominal pain 23091029 R10.11 start on dicyclomin e 20 mg TID and nausea she will continue zofran Nausea, vo miting and diarrhea 4952502 R11.2 elevated LFTs, protein and signs of anemia; concern for biliary symptom problem [id number] Jl Gilbert DO [facility] [address] [facility],[place] [address] 10/02/2022 15:40:40 10/02/2022 16:24:29 Pre-surgery evaluation 306545322 Z01.818 The patient was seen in the office today for pre-op evaluation . All medical conditions on patient's problem list were addressed and are currently stable, no interventi on needed at this time. Based on history and physical performed, the patient is cleared for surgery. [id number] Jl Gilbert DO [facility] [address] [facility],[place] [address] 11/20/2022 08:00:16 11/20/2022 14:17:23 Polymyalgia rheumatica 98361442 M35.3 she feels great and is doing wonderfuln o longer on prednisone she will call if her sx return and we will do quick pred pulse dosewill see in spring Gastroesop hageal reflux disease 554003661 K21.9 stable on current meds Cyst of uterus 116940 N 88.8 did well with surgery and no major issues was 12cm in size Diverticul osis of sigmoid colon 148489758 K57.30 has adjust her diet and cont metamucil Urinary incontinence 165 941265 R32 going to a incont clinic at [facility] Bilateral osteoarthritis of knees 5219955360 07562 M17.0 we will provid cor t inj when she is ready [id number] Jl Gilbert DO [facility] [address] [facility],[place] [address] 12/25/2022 08:04:46 12/25/2022 15:24:45 Acute upper gastrointestinal hemorrhage 37349871 K92.1 will set up with recheck BW Gastroesop hageal reflux disease 551964819 K21.9 stable Hyperlipidemia 41199802 E78.2 stable Iron defic iency anemia 48096304 D50.9 stable Bilateral hearing loss 62819748 H90.5 referral sent [id number] Jl Gilbert [facility] [address] [facility],[place] [address] 02/22/2023 09:47:49 02/22/2023 10:59:43 Bilateral osteoarthritis of knees 4716541475 04970 M17.0 she has a new stimulator doing well with it so far Iron defic iency anemia 44841410 D50.9 cbc normal if iron level is also goodwillst op iron supp she has been having GI upset Acute uppe r gastrointestinal hemorrhage 89972540 K92.1 no further bleedingno perlita Inappropri ate sinus tachycardia 353160563 I47.11 quiet nno issues [id number] Jl Gilbert [facility] [address] [facility],[place] [address] 04/21/2023 09:18:25 04/21/2023 15:17:48 Bilateral osteoarthritis of knees 2984401884 81382 M17.0 she has a new stimulator doing well with it so far Anemia 918782992 D64.9 will cont with iron until eval as below Inappropri ate sinus tachycardia 343666935 I47.11 quiet no issues Gastrointe stinal hemorrhage 73510576 K92.2 has had major work up after recent bleeding that required mult transfusio ns (at least 4)await results of video capsule [id number] Jl Gilbert [facility] [address] [facility],[place] [address] 07/26/2023 11:53:47 07/26/2023 14:25:43 Synovial cyst of left knee 7904711388 75893 M71.22 ruptured now resolving discussed care and ongoing tx Iron defic iency anemia 95412676 D50.9 doing fantastic with her iron infusions Acute urin mahesh tract infection 960626967 N39.0 now is asymptomat ictold her to use the lubricant every day [id number] [facility] [address] [facility],[place] [address] 12/06/2023 13:29:44 12/06/2023 14:45:24 Depression screening 297603177 Z13.31 SCREENING NEGATIVE Allergic r eaction to drug 989768836 T78.49XA will start on prednisone for the rash (allergic reaction)w ill set up wtih hydroxyzin e for the itch specifical ly [id number] Jl Gilbert [facility] [address] [facility],[place] [address] 12/20/2023 13:45:11 12/20/2023 14:22:27 Polymyalgia rheumatica 56827430 M35.3 she feels great and is doing wonderfuln o longer on prednisone she will call if her sx return and we will do quick pred pulse dosewill see in spring 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 stable and doing well with iron infusions Anemia 443843510 D64.9 will cont with iron until eval as below Iron defic iency anemia 12355997 D50.9 doing fantastic with her iron infusions [id number] Jl Gilbert [facility] [address] [facility],[place] [address] 03/27/2024 13:49:10 03/27/2024 14:44:29 Adult health examination 876845724 Z00.01 has noticed increased fatigue as of late Screening for cardiovascular system disease 266156603 Z13.6 Screening mammography 24 372841 Z12.31 not required 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 doing well Hyperlipidemia 62960619 E78.2 will rechk at next lab Iron defic iency anemia 16548804 D50.9 doing fantastic with her iron infusions has been stable at 12.2 the last few months skipping iron infusion this month per dr howell Eczema 17184264 L30.9 [id number] Jl Gilbert [facility] [address] [facility],[place] [address] 09/05/2024 13:29:17 09/05/2024 13:56:12 Hyperlipidemia 70755888 E78.2 will rechk at next lab Depression screening 171 747958 Z13.31 neg Iron defic iency anemia 86056730 D50.9 doing fantastic with her iron infusions has been stable at 13.5 the last few months skipping iron infusion this month per dr howell Contusion of right forearm 1109198217 6059578 S50.11XA noted healing but still sore will use tylenol prn Pain of le ft knee joint 5549122645 77148 M25.562 Health Concerns Section Related Observation LastModified by Organization Detai ls LastModified Time None Recorded Concern Status LastModified by Organization Details LastModified Time None Recorded Advance Directives Directive None Recorded Payers Encounter Date Sequence Insurance Name Policy Number Policy Barnhart Covered Member ID Barnhart Member ID Guarantor Name 07/26/2023 1 [place] [employer] Renita Ritchie [id number] Renitakiel Ritchie 07/26/2023 2 [place] [id number] Renita Carin Ritchie [id number] Renita Erma 12/06/2023 1 [place] [employer] Renita Ritchie [id number] P34 Renita Erma 12/06/2023 2 [place] [id number] Renita Carin Ritchie [id number] Renitakiel Ritchie 12/20/2023 1 [place] [employer] Renita Ritchie [id number] P34 Renita Erma 12/20/2023 2 [place] [id number] Renita Carin Ritchie [id number] Renitakiel Ritchie 03/27/2024 1 [place] [employer] Renita Ritchie [id number] P34 Renitakiel Ritchie 03/27/2024 2 [place] [id number] Renita Carin Ritchie [id number] Renita Ritchie 09/05/2024 1 [place] [employer] Renita Ritchie [id number] P34 Renita Ritchie 09/05/2024 2 [place] [id number] Renita Parkerkendra [id number] Renita Ritchie Notes Date Note Type Note Provider Name and Address Organization Details Recorded Time 07/26/19 24 text/htm renny had a swollen leg and was eval in ER for a clotrelates that she had terrible pain with swellingand now feeling better Jl Gilbert DO [address] [place], [address], [facility] 07/26/2023 12:44:27 12/06/19 24 text/htm l c/o rash the patient developed a macular [...] avoiding scented soaps and long hot showers [facility] [address] [place], [address], [facility] 12/06/2023 14:20:25 12/20/19 24 text/htm l here for r3echk and is doing ok overall except for a recurrent itchy rashstarted a month ago had just been started on Gemtesa by urol and she stopped after 3 days due to itchy rash given pred with resolution but returned 5 days later unfortunatelyrash is around eyes and mouth and between breasts and is very itchy Jl iGlbert DO [address] [place], [address], [facility] 12/20/2023 14:21:08 03/27/20 24 text/htm l Medicare Annual Wellness VisitReported bypatient.Diet and Nutrition:healthy [...] home feeling great Jl Gilbert, DO [address] [facility], [place], [address], [facility] 03/27/2024 14:42:23 09/06/19 25 text/htm l AnemiaReported bypatient.Timing:better Associated [...] shape by dr mynor Gilbert, DO [address] [facility], [place], [address], [facility] 09/05/2024 13:53:26 OBGyn Episode No OBEpisode recorded.
== END 2024-09-05 15:08 | disposition home or self-care (01) ==
LOC: HO.XRAY 15:07
PROVIDERS: PCP Internal Medicine; Visit Provider Internal Medicine
DX: M25.562 Pain in left knee (principal)
CPT/HCPCS: 73562

== ENCOUNTER → 2024-09-05 15:20 | Outpatient (BNV) | payer MEDICARE, SELFPAY | PROVIDERS: PCP Internal Medicine; Visit Provider Radiology Diagnostic Radiology | DX: M25.462 Effusion, left knee (principal) | CPT/HCPCS: 73562 ==

== ENCOUNTER 2024-10-06 15:53 | Outpatient (REF) | payer MEDICARE, SELFPAY ==
--- OUTSIDE RECORDS SUMMARY | 2024-10-06 15:57 | XMS_ITS | Data Portability ---
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 2 OUT OF [...] EACH ELEMENT THAT IS COVERED Not available 10/06/2024 15:49:54 Plan of Treatment Reminders Order Date Submit Date Provider Last Modified By Organization Details Last Modified Time Details Appointments PROCEDURE 15 2024 03:30P M DR GILBERT Not available Not available Not available Lab CBC 2024 025 [facility], [address] [place] [address], [id number], 10/06/2024 15:52:59 iron + TIBC + ferritin, serum 2024 025 [facility], [address] [place] [address], [id number], 10/06/2024 15:52:59 lipid panel, blood 2023 024 [facility], [address] [place] [address], [id number], 05/19/2024 13:35:18 CBC w/ auto diff 2023 [facility], [address] [place] [address], [id number], 05/19/2024 13:35:18 CMP, serum or plasma 2023 [facility], [address] [place] [address], [id number], 05/19/2024 13:35:18 Referral None recorded. Procedures None recorded. Surgeries None recorded. Imaging XR, knee, 3 view 2024 [facility] (Imaging), [address] [place] [address], [id number], 09/05/2024 16:01:33 Medication Orders meloxicam 7.5 mg tablet 2024 [id number], [address], [place], [id number], 10/06/2024 15:47:29 prednison e 10 mg tablet 2023 SUKHJINDER Not available 12/20/2023 13:50:57 hydroxyzi ne HCl 25 mg tablet 2023 024 Not available 10/06/2024 15:48:03 Patient TargetsNo targets recorded. Patient Instructions Encounter Date Encounter Id Patient Instructions Last Modified By Organization Details Last Modified Time 12/20/2023 [id number] polymyalgia rheumatica: care instructions Not available 12/20/2023 14:20:50 anemia: care instructions Not available 12/20/2023 14:20:50 iron deficiency anemia: care instructions Not available 12/20/2023 14:20:50 03/27/2024 [id number] advance care planning: care instructions Not available 03/27/2024 14:40:47 Discussed and explained advance directives such as standard forms to the . Face to face discussion lasted for a duration of ___ minutes. [email or web address] Not available 03/22/2024 10:07:08 10/06/2024 [id number] managing nausea from cancer treatment: care instructions Not available 10/06/2024 15:51:37 anemia: care instructions Not available 10/06/2024 15:51:37 Reason for Referral None Reported. Results Created Date Observation Date Name Description Value Unit Range Abnormal Flag Note LastModifiedBy Organization Detail LastModifiedTime 12/29/19 24 12/15/2023 imagi ng/di agnos tic resul t No observ ation record ed. [facility] [address] [place] [address], [address], 12/29/2023 15:03:51 09/06/19 25 09/05/2024 XR, knee, 3 view No observ ation record ed. [address] (Medical Records) [address] [place], [address], 09/06/2024 13:43:52 Result Notes None recorded. Problems Name Problem SNOMED Code Status Onset Date Resolution Date Notes Provider Name and Address Organization Details Recorded Time Dizziness 258635056 Active 2017 Jl Gilbert DO [address] [place] [address], [phone], [facility] 8 14:10:15 Diverticu losis of sigmoid colon 748689131 Active 2018 Jl Gilbert DO [address] [place] [address], [address], [facility] 9 15:05:26 Iron deficienc y anemia 32339643 Active 2018 Jl Gilbert DO [address] [place] [address], [address], [facility] 9 15:05:28 Bilateral osteoarth ritis of knees 506352773120 107 Active 2019 Jl Gilbert DO [address] [place] [address], [address], [facility] 0 13:44:31 Postconcu ssion syndrome 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 Active 2019 Jl Gilbert, DO [address] [place] [address], [address], [facility] 0 14:54:51 Closed fracture of malar AND/OR maxillary bones 07270207 Active 2019 Jl Gilbert, DO [address] [place] [address], [address], [facility] 0 14:56:18 Polymyalg ia rheumatic a 29338359 Active 2021 Jl Gilbert, DO [address] [place] [address], [address], [facility] 2 13:37:53 Disorder of breast 59667398 Active 2017 Cancer , lymph nodes taken out, Chemo/ [facility]iat [facility] 8 12:25:35 Migraine 91627195 Active 2017 Veromarlyn Mercado [facility] 8 12:26:02 Gastroeso phageal reflux disease 472936243 [facility] 2017 [facility] 12:26:10 Restless legs 22180148 Active 2017 [facility] 8 12:26:28 Hyperlipi demia 83920838 Active 2017 [facility] 8 12:26:54 Myalgia/m yositis - multiple 214553685 Active 2021 BELEN BEGUM [address] [place] [address], [address], [facility] 2 15:33:50 Tremor 42106235 Active 2022 Jl Gilbert DO [address] [place] [address], [address], [facility] 3 15:17:14 Acute urinary tract infection 545157341 Active 2022 Jl Gilbert DO [address] [place] [address], [address], [facility] 3 11:26:31 Stomach cramps 50876633 Active 2022 Jl Gilbert DO [address] [place] [address], [address], [facility] 3 09:36:53 Atrial tachycard ia 337259193 Active 2022 Jl Gilbert DO [address] [place] [address], [address], [facility] 3 09:37:39 Unsteady when walking 90811375 Active 2022 Jl Gilbert DO [address] [place] [address], [address], [facility] 3 09:38:19 Nausea, vomiting and diarrhea 1310403 Active 2022 BELEN BEGUM [address] [place] [address], [address], [facility] 3 15:29:32 Liver function tests outside reference range 477134967 Active 2022 BELEN BEGUM [address] [place] [address], [address], [facility] 3 11:01:05 Abdominal pain 56956898 Active 2022 BELEN BEGUM [address] [place] [address], [address], [facility] 3 11:11:43 Cyst of uterus 089177 Active 2022 Jl Gilbert DO [address] [place] [address], [address], [facility] 3 10:42:25 Urinary incontine cte 616549309 Active 2022 Jl Gilbert, DO [address] [place] [address], [address], [facility] 3 10:51:28 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 2022 Jl Gilbert DO [address] [place] [address], [address], [facility] 3 22:13:57 Acute upper gastroint estinal hemorrhag e 45027881 Active 2022 Jl Gilbert, DO [address] [place] [address], [address], [facility] 3 22:14:28 Anemia 337765113 Active 2022 Jl Gilbert DO [address] [place] [address], [address], [facility] 3 22:15:19 Bilateral hearing loss 41494832 Active 2022 BELEN BEGUM [address] [place] [address], [address], [facility] 3 15:04:21 Melena 7391342 Active 2022 BELEN BEGUM [address] [place] [address], [address], [facility] 3 10:41:10 Inappropr iate sinus tachycard ia 936107599 Active 2022 Jl Gilbert DO [address] [place] [address], [address], [facility] 3 10:16:50 Gastroint estinal hemorrhag e 15595766 Active 2022 Jl Gilbert DO [address] [place] [address], [address], [facility] 3 13:45:49 Recurrent urinary tract infection 994385274 Active 2023 Jl Gilbert DO [address] [place] [address], [address], [facility] 4 16:46:48 Synovial cyst of left knee 210984244362 102 Active 2023 Jl Gilbert DO [address] [place] [address], [address], [facility] 4 12:37:49 Dysuria 90180776 Active 2023 Jl Gilbert DO [address] [place] [address], [address], [facility] 4 11:26:29 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 728920194 Active 2023 Jl Gilbert DO [address] [place] [address], [address], [facility] 4 16:07:14 Allergic reaction to drug 787790906 Active 2023 BELEN BEGUM [address] [place] [address], [address], [facility] 4 14:05:39 Facial eczema 043111519 Active 2023 Jl Gilbert DO [address] [place] [address], [address], [facility] 4 16:25:32 Disorder of vitamin B12 858550507 Active 2023 Jl Gilbert DO [address] [place] [address], [address], [facility] 4 16:32:02 Eczema 80188752 Active 2023 Jl Gilbert DO [address] [place] [address], [address], [facility] 4 14:35:51 Contusion of right forearm 494094473858 41949 Active 2024 Jl Gilbert DO [address] [place] [address], [address], [facility] 5 13:49:20 Pain of left knee joint 239954471210 107 Active 2024 Jl Gilbert, DO [address] [facility], [place], [address], [facility] 5 13:50:12 Problem Notes None recorded. Procedures Surgical History Date Name Laterality Status Provider Name and Address Organization Details Recorded Time Knee Surgery completed [facility] 07/13/2017 12:27:53 Knee Surgery completed [facility] 07/13/2017 12:28:28 Cholecystectomy completed [facility] 07/13/2017 12:29:02 Imaging Results None recorded. Procedure Notes None recorded. Medical Equipment None Reported. Allergies Allergen ID Allergen Name Allergen Category Reaction Reaction Severity Criticality Documentation Date Start Date Code Code System Note Provider Name and Address Organization Details Recorded Time 238 Lyrica medicatio n Not available Not available Not available 02/01/2018 98274 1 RxNorm leg pain, sleep ing all the time Vero Jess [facility] 8 13:32:10 550 gabapenti n medicatio n Not available Not available Not available 07/13/2017 71846 RxNorm Light head, numbn ess in hands [facility] Jess [facility] 8 12:22:40 551 Product containin g penicilli n (product) medicatio n Not available Not available Not available 07/13/2017 15722 8001 SNOMED [facility] 8 12:22:54 552 Product containin g 3-hydroxy -3-methyl glutaryl- coenzyme A reductase inhibitor (product) medicatio n Not available Not available Not available 07/13/2017 17344 009 SNOMED [facility] 8 12:23:15 553 Levaquin medicatio n Not available Not available Not available 07/13/2017 39081 2 RxNorm [facility] 8 12:23:26 8253 Gemtesa medicatio n rash Not available Not available 12/06/20232023 03882 16 RxNorm Ashley Gerardo [facility] 4 13:44:53 8254 Substance with sulfonami de structure and antibacte rial mechanism of action (substanc e) medicatio n Not available Not available Not available 12/06/2023 95642 8003 SNOMED GINNY PIEDRA, BELEN [address] [place], [address], [facility] 4 14:06:19 Medications Name [...] TAKE 1 TABLET BY MOUTH EVERY DAY FOR 14 DAYS 10/06 completed Not Available Not Available Not Available [...] THREE TIMES DAILY NEEDED FOR 7 DAYS 10/06 completed Not Available Not Available Not Available metoprolol succinate ER 25 mg tablet,exte [...] MOUTH EVERY 6 HOURS NEEDED FOR PAIN 10/06 completed Not Available Not Available Not Available Bactrim DS 800 mg-160 mg tablet [...] MOUTH DAILY. DO NOT CRUSH OR CHEW 10/06 completed Not Available Not Available Not Available Flonase Allergy Relief 50 mcg/actuati on nasal spray,suspe nsion Walker 1 spray every day by intranasa l route for 30 days. 10/02 completed Not Available Not Available Not Available Shingrix (PF) 50 mcg/0.5 mL intramuscul ar suspension, kit 07/09 completed Not Available Not Available Not Available Fluad Quad 0916-9334(6 5yr up)(PF) 60 mcg (15 mcg x [...] Updated DateTime 09/05/2024 162.56 cm 24.4 kg/m2 26930.12 g 132 mm[Hg] 73 mm[Hg] Kell Jamil [facility] 5 13:36:06 Date Recorded Body height Body mass index (BMI) Body weight Heart rate Oxygen saturation Oxygen saturation in Arterial blood by Pulse oximetry Systolic blood pressure Diastolic blood pressure Provider Name and Address Organization Details Last Updated DateTime 4 162.56 cm 24 kg/m2 68558.2 9 g 74 /min 98 % 98 % 128 mm[Hg] 80 mm[Hg] Ashley Gerardo [facility] 4 13:46:47 Date Recorded Body height Body mass index (BMI) Body weight Heart rate Oxygen saturation Oxygen saturation in Arterial blood by Pulse oximetry Systolic blood pressure Diastolic blood pressure Provider Name and Address Organization Details Last Updated DateTime 4 162.56 cm 25.5 kg/m2 25990.4 7 g 74 /min 99 % 99 % 140 mm[Hg] 86 mm[Hg] Alexx Arellano [facility] 4 13:51:21 Date Recorded Body height Body mass index (BMI) Body weight Heart rate Oxygen saturation Oxygen saturation in Arterial blood by Pulse oximetry Systolic blood pressure Diastolic blood pressure Provider Name and Address Organization Details Last Updated DateTime 4 162.56 cm 24.5 kg/m2 26510.7 1 g 74 /min 99 % 99 % 162 mm[Hg] 84 mm[Hg] Jl Gilbert, [address] [place], [address], [facility] 14:05:31 Social History Question Answer Notes LastModified by Organizat ion Details LastModified Time Tobacco Smoking Status Former Smoker Not Available [facility]/27/2020 03:36:23 What Was The Date Of Your Most Recent Tobacco Screening? 09/05/2024 [email or web address] Information not available 09/05/2024 How Many Years Have You Smoked Tobacco? 12 [id number] Information not available 02/27/2020 Sex: Unknown Functional [...] Tdap 03/23/20 20 completed Radha Gencarelle hermelinda [facility] 01/06/2021 14:52:31 Pneumococcal conjugate PCV 13 02/25/20 17 [facility]/06/2021 14:58:01 COVID-19, mRNA, LNP-S, PF, 100 mcg/0.5mL dose or 50 mcg/0.25mL dose 06/26/19 21 completed Michelle shen [facility] 01/06/2021 14:58:48 COVID-19, mRNA, LNP-S, PF, 100 mcg/0.5mL dose or 50 mcg/0.25mL dose 05/28/19 21 completed Jl Gilbert DO [address] [place], [address], [facility] Internal [facility] 07/14/2021 16:25:57 COVID-19, mRNA, LNP-S, PF, 100 mcg/0.5mL dose or 50 mcg/0.25mL dose 04/07/20 21 completed Jl Gilbert DO [address] [place] [address], [address], [facility] Internal [facility] 07/14/2021 16:26:04 Influenza, split virus, quadrivalent, preservative 04/07/20 21 completed Michelle shen [facility] 09/26/2021 09:34:49 influenza, unspecified formulation 04/03/20 22 completed Jl Gilbert DO [address] [place] [address], [address], [facility] 05/15/2022 14:49:17 Influenza, split virus, quadrivalent, preservative 02/17/20 18 [facility] 06/08/2018 14:33:06 pneumococcal polysaccharide PPV23 06/25/19 19 completed Jl Gilbert DO [address] [place] [address], [address], [facility] 06/25/2018 10:41:36 zoster live 11/05/19 19 completed Jl Gilbert DO [address] [place] [address], [address], [facility] 11/05/2018 10:43:34 zoster live 01/14/20 19 [facility] 01/16/2019 08:06:43 Influenza, adjuvanted, trivalent, PF 01/29/20 19 completed [facility] 01/30/2019 12:01:02 Influenza, split virus, quadrivalent, preservative 01/29/20 20 completed Jl Gilbert DO [address] [place] [address], [address], [facility] 04/16/2020 14:30:36 Influenza, split virus, quadrivalent, preservative 02/19/20 17 [facility]2017 13:26:49 Past Encounters Encounter ID Performer Location Encounter Start Date Encounter Closed Date Diagnosis/Indication Diagnosis SNOMED-CT Code Diagnosis ICD10 Code Diagnosis Note [id number] Jl Haddadnelson, [facility] [address] [facility] [facility] [address] 08/16/2017 13:33:31 08/16/2017 14:10:36 Chronic kidney disease stage 2 747005442 N18.2 unclear etiology, has been present since at least 07/2015, though her older records are in a second volume. will recheck labs, reccommend being very well hydrated handwritte n lab for CMP, lipids, cbc will need to pull second volume to determine when sx started Liver func tion tests outside reference range 869526633 R94.5 handwritte n lab for CMP, lipids, cbc, hcv, hbv Generalize d anxiety disorder 57075447 F41.1 on fluoxetine , for many years Restless legs 30449603 G 25.81 takes lyrica with good effect Upper resp iratory infection 06611356 J06.9 likely viral, recommend fluids, rest, mucinex-dm , sx likely will last 7-10 days, f/u if sx worsen or persist there after. [id number] Jl Miles Yoseph, [facility] [address] [facility],[place] [facility] [address] 02/01/2018 13:22:59 02/01/2018 14:08:40 Chronic kidney disease stage 2 524864724 N18.2 unclear etiology, has been present since at least 07/2015, though her older records are in a second volume. will recheck labs, reccommend being very well hydrated worsened in july labs, will recheck will dc prilosec due to possible renail impairment Liver func tion tests outside reference range 887869724 R94.5 improved in july labs Generalize d anxiety disorder 72878292 F41.1 on fluoxetine , for many years Restless legs 10995002 G 25.81 will check levels today lyrica has been d/cd will trial clonazepam Hyperlipidemia 50058743 E78.5 borderline , will recheck Gastroesop hageal reflux disease 191182423 K21.9 [id number] Jl Miles Yoseph [facility] [address] [facility] [address],[place] [address] 02/23/2018 13:33:51 02/23/2018 14:24:06 Depressive disorder 79457925 F32.0 stable migraines also stable Unintentio nal weight loss 942249318 R63.4 with abdominal pain and anemia wgt loss >40lbs Iron defic iency anemia 40058791 D50.9 [id number] Jl Gilbert [facility] [address] [facility],[place] [address] 03/11/2018 11:10:51 03/11/2018 13:27:39 Anemia 513831601 D64.9 will cont with iron until eval as below Epigastric pain 10154560 R10.13 will need to have GI eval and will need EGD etc and colonoscop y given the patients sgt loss of 40 lbs and anemia and evidence of gastric abnormalit y Mass of ri ght adrenal gland 6124822638 5811849 E27.8 per radiologis t needs the ulstrasoun d done to confirm cyst [id number] Jl Gilbert [facility] [address] [facility], [place] [address] 06/08/2018 14:06:13 06/08/2018 15:18:39 Adult health examination 713901893 Z00.00 Abdominal pain 91679280 R10.9 believe this from diverticul osis not itis and that she just has some smoulderin g inflammati on this would also explain her mild anemia with no evid or source of bleed Iron defic iency anemia 83790802 D50.9 need to rechk levels she is taking iron daily this also acccounts for her RLS getting better Diverticul osis of sigmoid colon 613435676 K57.30 sanchez adjust her diet and add slowly metamucil [id number] Jl Gilbert [facility] [address] [facility], [place] [address] 07/13/2018 13:57:33 07/13/2018 14:44:23 Malaise and fatigue 409624787 R53.83 wondering if her blood count has dropped again worried that she is bleeding again recheck cbc iron etc Iron defic iency anemia 91811843 D50.9 need to rechk levels she is taking iron daily but this may not be enough her RLS are back again and is usu indicative of low iron Restless legs 13905733 G 25.81 check iron [id number] Jl Gilbert [facility] [address] [facility],[place] [address] 07/22/2018 11:43:48 07/22/2018 15:27:37 Iron deficiency anemia 55952775 D50.9 is from a gi bleed as evidenced from her heme positive occult stool cards X3 will need to be seen again by dr deon barnes and will need rescope and perhaps egd if thoughts of [place] [id number] Jl Gilbert [facility] [address] [facility],[place] [address] 12/28/2018 14:42:44 12/28/2018 15:14:54 Cough 23274929 R05 doesn't seem infection, suspect allergies/ PND will r/o atypical pna - get cxr Allergic rhinitis 300996 04 J30.9 allergy treatments Insomnia 830800433 G47.0 0 perhaps xyzal will help with this trial for a couple weeks and see if further treatment is needed [id number] Jl Gilbert [facility] [address] [facility],[place] [address] 07/10/2019 13:28:38 07/10/2019 14:03:55 Adult health examination 167615292 Z00.01 she has gained some weight back thankfully Iron defic iency anemia 26656495 D50.9 is from a gi bleed as evidenced from her heme positive occult stool cards X3 she feels markedly better after the IRON infusions will need to be seen again by dr deon barnes and will be followed [id number] Jl Gilbert DO [facility] [address] [facility],[place] [address] 10/03/2019 15:17:44 10/03/2019 16:27:14 Pain of right calf 5197971329 666955 M79.661 the patient reports swelling, warmth in the right calf and tenderness to palpation Edema of l ower extremity 995534481 R60.0 swelling of bilateral knees will send back to ortho [id number] Jl Gilbert [facility] [address] [facility],[place] [address] 01/08/2020 13:28:57 01/08/2020 14:18:35 Hyperlipidemia 88581336 E78.5 will rechk at next lab Iron defic iency anemia 56312753 D50.9 is from a gi bleed as evidenced from her heme positive occult stool cards X3 she feels markedly better after the IRON infusions has finished her iron infusions but will follow the hematologi st in 3 mo will need to be seen again by dr lynda barnes and will be followed Diverticul osis of sigmoid colon 242996427 K57.30 sanchez adjust her diet and add slowly metamucil Prerenal azotemia 689461 001 N25.9 [id number] Jl Gilbert [facility] [address] [facility],[place] [address] 03/27/2020 13:25:39 03/27/2020 13:56:50 Migraine 59287239 G43.909 helped with the sumatripta n, increased after the injury Dizziness 857857738 R42 the patient doing much better today Vertigo 871043620 [place]42 [place] [id number] Jl Gilbert [facility] Internal Medicine [address] [facility],[place] [address] 04/16/2020 14:08:59 04/16/2020 15:14:12 Dizziness 183618324 R42 part of her post concussion synd Iron defic iency anemia 14711714 D50.9 is from a gi bleed as evidenced from her heme positive occult stool cards X3 she feels markedly better after the IRON infusions has finished her iron infusions but will follow the hematologi st in 3 mo will need to be seen again by dr lynda barnes and will be followed Gastroesop hageal reflux disease 134129412 K21.9 stable on current meds 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 relates is slowly getting better but still has some lingering symptoms and Closed fra cture of malar AND/OR maxillary bones 17166872 S02.400A slowly healing and doing better ent and dental both feel no surgery is needed [id number] Jl Gilbert [facility] Internal Medicine [address] [facility],[place] [address] 08/26/2020 13:25:05 08/26/2020 14:40:35 Iron deficiency anemia 13052581 D50.9 is from a gi bleed as [...] cbc decreases Diverticul osis of sigmoid colon 858688615 K57.30 has adjust her diet and cont metamucil Dizziness 446915201 R42 finally resolved now post concuss [id number] Jl Gilbert [facility] Internal [facility] [address] [facility],[place] [address] 01/08/2021 13:20:59 01/08/2021 14:46:00 Mass of right adrenal gland 7021178706 7489387 E27.8 per radiologis t needs the ulstrasoun d done to confirm cyst Depressive disorder 3548 9007 F32.0 stable migraines also stable Closed fra cture of malar AND/OR maxillary bones 19997528 S02.400A slowly healing and doing better ent and dental both feel no surgery is needed Iron defic iency anemia 03817956 D50.9 is from a gi bleed as [...] she usu knows when cbc decreases Hyperlipidemia 59437331 E78.5 will rechk at next lab Gastroesop hageal reflux disease 394221025 K21.9 stable on current meds Bilateral osteoarthritis of knees 8846349866 64925 M17.0 having pain around prosthetic swe will try some meloxicam [id number] Jl Gilbert [facility] Internal Medicine [address] [facility] [address],[place] [address] 05/14/2021 08:12:09 05/16/2021 13:11:42 Iron deficiency anemia 70901074 D50.9 she feels a little better after [...] her see a GI specialist Restless legs 70185942 G 25.81 check iron Diverticul osis of sigmoid colon 716936513 K57.30 has adjust her diet and cont metamucil Mass of ri ght adrenal gland 2773175241 1548129 E27.8 per radiologis t needs the ultrasound done to confirm cyst Depressive disorder 3548 9007 F32.0 stable migraines also stable Closed fra cture of malar AND/OR maxillary bones 94875685 S02.400A stable and doing better ent and dental both feel no surgery is needed Migraine 95457398 G43.90 9 has been stable but ran out of sumatripta n [id number] Jl Gilbert [facility] Internal Medicine [address] [facility] [address], [address] [place] [address] 07/14/2021 16:17:28 07/15/2021 11:02:41 Diverticulosis of colon 421528018 K57.30 cont to improve and eating good and bowels are much better she will call andreas if her pain returns in her LLQ or fever or both [id number] Jl Gilbert [facility] Internal Medicine [address] [facility] [address],[place] [address] 09/26/2021 15:51:14 09/26/2021 16:24:35 Hyperlipidemia 03288758 E78.5 will rechk at next lab Gastroesop hageal reflux disease 721098831 K21.9 stable on current meds Iron defic iency anemia 60773579 D50.9 doing much bettereati ng better PRIOR [...] a GI specialist Advance care planning 71 0938419 Z71.89 done [id number] Jl Gilbert, [facility] Internal Medicine [address] [facility] [address],[place] [address] 12/19/2021 13:31:27 12/19/2021 14:33:24 Migraine 06732237 G43.909 has been stable but ran out of sumatripta n Advance care planning 71 3849946 Z71.89 Has on file with [facility] Polymyalgi a rheumatica 71625911 M35.3 we will begin to slowly taper the prednisone will have been on pred 40mg for one month on dec 5will decrease to 35 mg after the weekend and see how she doeswill get an esr after a couple [id number] Jl Gilbert DO [facility] Internal Medicine [address] [facility] [address],[place] [address] 01/16/2022 16:17:09 01/19/2022 09:59:46 Polymyalgia rheumatica 52134328 M35.3 she feels great and is doing wonderfule sr was 80 and is now down to 4appetite is too good Bilateral osteoarthritis of knees 0128875565 23889 M17.0 is feeling great Diverticul osis of sigmoid colon 550992251 K57.30 has adjust her diet and cont metamucil Gastroesop hageal reflux disease 510007458 K21.9 stable on current meds Iron defic iency anemia 45539555 D50.9 doing much bettereati ng better PRIOR [...] to have her see a GI specialist [id number] Jl Gilbert DO [facility] Internal Medicine [address] [facility] [address],[place] [address] 03/16/2022 15:06:22 03/16/2022 15:38:34 Polymyalgia rheumatica 66656686 M35.3 she feels great and is doing wonderfule sr was 80 and is now down to 4 and last week 7 so is down to her last dose and now dc we will rechk a esr in few weeksappet ite is too good she will call if her sx return and we will do quick pred pulse dosewill see in spring [id number] Jl Gilbert, [facility] Internal Medicine [address] [facility] [address],[place] [address] 05/15/2022 14:37:24 05/15/2022 15:28:13 Iron deficiency anemia 78384285 D50.9 now her symptoms are mimicing her prior severe iron def anemia we will check lab now and have her see dr lynda johns Mass of ri ght adrenal gland 3658239374 1792875 E27.8 per radiologis t needs the ultrasound done to confirm cyst Polymyalgi a rheumatica 79488047 M35.3 she feels great and is doing wonderfule sr was 80 and is now down to 4 and last week 7 so is down to her last dose and now dc we will rechk a esr in few weeksappet ite is too good she will call if her sx return and we will do quick pred pulse dosewill see in spring Depressive disorder 2381 9007 F32.0 stable migraines also stable Closed fra cture of malar AND/OR maxillary bones 65253425 S02.400A stable and doing better ent and dental both feel no surgery is needed Advance care planning 71 9567812 Z71.89 Has on file with [facility] [id number] Jl Gilbert, [facility] Internal Medicine [address] [facility] [address],[place] [address] 07/01/2022 14:20:51 07/01/2022 15:27:01 Polymyalgia rheumatica 97936013 M35.3 she feels great and is doing [...] see in spring Advance care planning 71 3976224 Z71.Rema Has on file with [facility] Iron defic iency anemia 09937798 D50.9 now wondering if iron def has returned and is causing the tremor in handswe will rechk in lab now Tremor 43172614 R25.1 unsure etiol could be from iron def or ?pred taper ? no med that are new etcwill chk lab now if the labe is negative then we should try a beta clifford [id number] Jl Gilbert DO [facility] Internal Medicine [address] [facility] [address],[place] [address] 08/11/2022 10:24:40 08/11/2022 12:19:51 Adult health examination 569798474 Z00.00 has noticed increased fatigue as of late Acute urin mahesh tract infection 464842469 N39.0 Atrial fibrillation 4943 6004 I48.91 will initiate metoprolol and put her on asa until definitive dx we obtained tentative dx by exam and by Esmer [id number] Jl Gilbert DO [facility] Internal Medicine [address] [facility],[place] [facility] [place] [address] 08/28/2022 09:00:48 08/28/2022 11:10:24 Iron deficiency anemia 35173157 D50.9 cbc normal iron level is also goodwillst op iron supp she has been having GI upset Stomach cramps 24663599 R10.9 prob secondary to sulfa med now feels better Atrial tachycardia 95194 6006 I47.1 we will have her cont the metoprolol low dose and see her in october Unsteady when walking 22 130932 R26.89 will get a eval done [id number] Jl Gilbert DO [facility] Internal Medicine [address] [facility] [address],[place] [address] 09/14/2022 09:12:26 09/14/2022 11:23:12 Abdominal pain 17578642 R10.11 start on dicyclomin e 20 mg TID and nausea she will continue zofran Nausea, vo miting and diarrhea 0183016 R11.2 elevated LFTs, protein and signs of anemia; concern for biliary symptom problem [id number] Jl Gilbert DO [facility] Internal Medicine [address] [facility],[place] [address] 10/02/2022 15:40:40 10/02/2022 16:24:29 Pre-surgery evaluation 758569093 Z01.818 The patient was seen in the office today for pre-op evaluation . All medical conditions on patient's problem list were addressed and are currently stable, no interventi on needed at this time. Based on history and physical performed, the patient is cleared for surgery. [id number] Jl Gilbert DO [facility] Internal Medicine [address] [facility],[place] [address] 11/20/2022 08:00:16 11/20/2022 14:17:23 Polymyalgia rheumatica 15157863 M35.3 she feels great and is doing wonderfuln o longer on prednisone she will call if her sx return and we will do quick pred pulse dosewill see in spring Gastroesop hageal reflux disease 071185157 K21.9 stable on current meds Cyst of uterus 949022 N 88.8 did well with surgery and no major issues was 12cm in size Diverticul osis of sigmoid colon 437840469 K57.30 has adjust her diet and cont metamucil Urinary incontinence 165 005751 R32 going to a incont clinic at [facility] Bilateral osteoarthritis of knees 5483167153 95684 M17.0 we will provid cor t inj when she is ready [id number] Jl Gilbert DO [facility] Internal Medicine [address] [facility],[place] [address] 12/25/2022 08:04:46 12/25/2022 15:24:45 Acute upper gastrointestinal hemorrhage 15795730 K92.1 will set up with recheck BW Gastroesop hageal reflux disease 708299262 K21.9 stable Hyperlipidemia 60842911 E78.2 stable Iron defic iency anemia 40175301 D50.9 stable Bilateral hearing loss 22287820 H90.5 referral sent [id number] Jl Gilbert DO [facility] Internal Medicine [address] [facility],[place] [address] 02/22/2023 09:47:49 02/22/2023 10:59:43 Bilateral osteoarthritis of knees 7509649227 00544 M17.0 she has a new stimulator doing well with it so far Iron defic iency anemia 15673435 D50.9 cbc normal if iron level is also goodwillst op iron supp she has been having GI upset Acute uppe r gastrointestinal hemorrhage 37368262 K92.1 no further bleedingno perlita Inappropri ate sinus tachycardia 511630620 I47.11 quiet nno issues [id number] Jl Gilbert [facility] Internal Medicine [address] [facility],[place] [address] 04/21/2023 09:18:25 04/21/2023 15:17:48 Bilateral osteoarthritis of knees 7197460776 78434 M17.0 she has a new stimulator doing well with it so far Anemia 749344458 D64.9 will cont with iron until eval as below Inappropri ate sinus tachycardia 931830240 I47.11 quiet no issues Gastrointe stinal hemorrhage 16557729 K92.2 has had major work up after recent bleeding that required mult transfusio ns (at least 4)await results of video capsule [id number] Jl Gilbert [facility] Internal Medicine [address] [facility],[place] [address] 07/26/2023 11:53:47 07/26/2023 14:25:43 Synovial cyst of left knee 4225003528 87200 M71.22 ruptured now resolving discussed care and ongoing tx Iron defic iency anemia 20236266 D50.9 doing fantastic with her iron infusions Acute urin mahesh tract infection 517405397 N39.0 now is asymptomat ictold her to use the lubricant every day [id number] Jl Gilbert [facility] Internal Medicine [address] [facility], [place] [address] 12/06/2023 13:29:44 12/06/2023 14:45:24 Depression screening 817406920 Z13.31 SCREENING NEGATIVE Allergic r eaction to drug 713360324 T78.49XA will start on prednisone for the rash (allergic reaction)w ill set up wtih hydroxyzin e for the itch specifical ly [id number] Jl Gilbert [facility] Internal Medicine [address] [facility],[place] [address] 12/20/2023 13:45:11 12/20/2023 14:22:27 Polymyalgia rheumatica 64950555 M35.3 she feels great and is doing wonderfuln o longer on prednisone she will call if her sx return and we will do quick pred pulse dosewill see in spring [facility] 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 stable and doing well with iron infusions Anemia 558931056 D64.9 will cont with iron until eval as below Iron defic iency anemia 26519458 D50.9 doing fantastic with her iron infusions [id number] Jl Gilbert [facility] Internal [facility] [address] [facility],[place] [address] 03/27/2024 13:49:10 03/27/2024 14:44:29 Adult health examination 349482724 Z00.01 has noticed increased fatigue as of late Screening for cardiovascular system disease 892557927 Z13.6 Screening mammography 24 414974 Z12.31 not required 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 doing well Hyperlipidemia 35409987 E78.2 will rechk at next lab Iron defic iency anemia 05991870 D50.9 doing fantastic with her iron infusions has been stable at 12.2 the last few months skipping iron infusion this month per dr howell Eczema 50656597 L30.9 [id number] Jl Gilbert [facility] Internal Medicine [address] [facility],[place] [address] 09/05/2024 13:29:17 09/05/2024 13:56:12 Hyperlipidemia 87580408 E78.2 will rechk at next lab Depression screening 171 630975 Z13.31 neg Iron defic iency anemia 68393494 D50.9 doing fantastic with her iron infusions has been stable at 13.5 the last few months skipping iron infusion this month per dr howell Contusion of right forearm 2050147837 2381854 S50.11XA noted healing but still sore will use tylenol prn Pain of le ft knee joint 5606655310 31062 M25.562 [id number] Jl Gilbert DO [facility] Internal Medicine [address] [facility],[place] [address] 10/06/2024 15:19:24 10/06/2024 15:52:30 Pain of left knee joint 4373417949 83745 M25.562 cont with tylenoll for now melox helped but we need lab first Anemia 955924070 D64.9 will cont with iron until eval as below Disorder o f vitamin B12 115161142 E53.8 doing well Stomach cramps 79487711 R10.9 resolved Nausea, vo miting and diarrhea 2822883 R11.2 resolved Health Concerns Section Related Observation LastModified by Organization Detai ls LastModified Time None Recorded Concern Status LastModified by Organization Details LastModified Time None Recorded Advance Directives Directive None Recorded Payers Insurance Date Sequence Insurance Name Policy Number Policy Barnhart Covered Member ID Barnhart Member ID Guarantor Name 10/03/2024 1 [place] [employer] Renita Ritchie [id number] Renita Ritchie 10/03/2024 2 [place] [id number] Renita Ritchie [id number] Renita Ritchie Notes Date Note Type Note Provider Name and Address Organization Details Recorded Time 12/06/19 24 text/htm l c/o rash the [...] soaps and long hot showers BELEN BEGUM [address] [place] [address], [place], [address], [facility] Internal Medicine 12/06/2023 14:20:25 08/26/20 24 text/htm l here for r3echk and is doing ok overall except for a recurrent itchy rashstarted a month ago had just been started on Gemtesa by urol and she stopped after 3 days due to itchy rash given pred with resolution but returned 5 days later unfortunatelyrash is around eyes and mouth and between breasts and is very itchy Jl CarinJannette Gilbert, DO [address] [place], [address], [facility] Internal Medicine 12/20/2023 14:21:08 03/27/20 24 text/htm [...] the home feeling great Jl Gilbert, DO [address] [place] [address], [address], [facility] Internal Medicine 03/27/2024 14:42:23 09/06/19 25 text/htm [...] good shape by dr mynor Gilbert, DO [address] [place] [address], [phone], [facility] Internal Medicine 09/05/2024 13:53:26 10/07/19 25 text/htm l Musculoskeletal PainReported bypatient.Location:pain is not radiating Severity:improving Associated Symptoms:no fever; no weak limbs; no tingling; no numbness of the legs/feet; no incontinence ADL (Activities of Daily Living)improve with medication noted ongoing pain in both knees is cesar sore but only takes tylenolalso she has had 2 knee replacements so no mercedes injalso relates yasmany she is very tired as of late Jl Gilbert, DO [address] [facility], [place], [address], [facility] Internal Medicine 10/06/2024 15:52:29 OBGyn Episode No OBEpisode recorded.
[2024-10-06 18:01] LABS: MANUAL DIFF FLAG NO
[2024-10-06 18:11] LABS: Basophils Percent Auto 0.6 % (0-2); Eosinophils Percent Auto 0.3 % (0-4); Hematocrit 36.6 % (37.0-47.0); Hemoglobin 11.4 g/dl (12.0-16.0); Imm Gran Abs Auto 0.03 X10*3/uL (0.00-0.03); Imm Gran Pct Auto 0.4 % (0.0-0.4); Lymphocytes Absolute Auto 0.9 X10*3/uL (1.2-4.9); Lymphocytes Percent Auto 12.5 % (20-40); Mean Corpuscular HGB Conc 31.1 g/dl (31.0-35.0); Mean Corpuscular Hemoglobin 28.8 pg (27.0-33.0); Mean Corpuscular Volume 92.4 fL (80.0-98.0); Mean Platelet Volume 10.5 fL (9.4-12.3); Monocytes Absolute Auto 0.7 X10*3/uL (0.1-1.2); Monocytes Percent Auto 9.2 % (2-11); Neutrophils Absolute Auto 5.6 x10*3/uL (2.0-8.3); Platelet Count 351 X10*3/uL (160-400); Red Blood Count 3.96 X10*6/uL (4.20-5.50); Red Cell Distribution Width 13.8 % (11.0-16.0); White Blood Count 7.2 X10*3/uL (4.8-10.8)
[2024-10-06 18:29] LABS: Iron 23 mcg/dL (30-160); Percent Iron Saturation 13 % (15-50); Total Iron Binding Capacity 183 mcg/dL (228-428); Unsaturated Iron Binding 160 ug/dL
[2024-10-06 18:49] LABS: Ferritin 511 ng/mL (10-250)
== END 2024-10-06 15:54 | disposition home or self-care (01) ==
LOC: HO.MANLDS 15:53
PROVIDERS: Visit Provider Internal Medicine
DX: D64.9 Anemia, unspecified (principal)
CPT/HCPCS: 36415; 82728; 83540; 85025

== ENCOUNTER 2024-11-07 09:59 | Outpatient (REF) | payer MEDICARE, SELFPAY ==
--- OUTSIDE RECORDS SUMMARY | 2024-11-07 10:53 | XMS_ITS | Patient Health Record ---
Author Organization [facility] Address [address] [place] [address] Care Team Providers Care Commercial Loan Administrator Name Role Phone Jl Hameed Primary Care Provider Dawood Glasgow Unavailable [phone] Allergies Allergen (clinical drug ingredient) Drug/Non Drug Allergy documented on EMR Reaction Allergy Type Onset Date Status sulfamethoxazole / trimethoprim Sulfamethoxazole-Tr imethoprim Unknown Drug Allergy Active pregabalin Lyrica Unknown Drug Allergy Active Levaquin Unknown Drug Allergy Active gabapentin Gabapentin Unknown Drug Allergy Activ e Penicillin Unknown Drug Allergy Active Statins Depletion Unknown Drug Allergy Active Results Component Value Reference Range Notes Complete Blood Count Auto Di ff Reviewed date:04/16/2024 01:16:34 PM Interpretation: Performing Lab:[facility], [address] [place] [phone] Notes/Report: White Blood Count 5.6 4.8-10.8 X10*3/uL [...] ff Reviewed date:04/16/2024 01:05:11 PM Interpretation: Performing Lab:[facility], [address] [place] [phone] Notes/Report: White Blood Count 4.5 4.8-10.8 X10*3/uL [...] X10*3/uL NRBC Abs Auto 0.000 0.0-0.012 X10*3/uL Reason For Referral No Information Medications Medication SIG (Take, Route, Frequency, Duration) Notes Start Date End Date Status SUMAtriptan Succinate 100 MG TAKE 1 TABLET BY MOUTH AT ONSET OF MIGRAINE. MAY TAKE 1 EXTRA DOSE 2 HOUR LATER NEEDED Oral for 23 [id number],Unavaila ble Active Latanoprost 0.005 % Ophthalmic for 90 Active Omeprazole 20 MG TAKE 1 CAPSULE BY MOUTH TWICE DAILY for 30 Active FLUoxetine HCl 20 MG 1 capsule Orally Once a day Active Tylenol 325 MG 1 tablet as needed Orally every 4 hrs/prn PRN Active Iron 325 (65 Fe) MG 1 tablet Orally BID Active Clindamycin HCl 150 MG TAKE 4 CAPSULE BY MOUTH 1 HOUR PRIOR TO APPT Oral for 4 only dentist Active Methenamine Hippurate 1 GM 1 tablet Orally Twice a day Active Sucralfate 1 GM TAKE 1 TABLET BY MOUTH 60 MINUTES BEFORE A MEAL THREE TIMES DAILY AND AT BEDTIME. YOU CAN DISSOLVE PILL IN 2 TO 3 OZ OF WARM WATER. for 30 Active Cephalexin 500 MG 1 capsule Orally every 6 hrs Active Carafate Not-Taking Centrum Silver - as directed Orally Active Immunizations Vaccine Route Administration Date Status Comme nts Influenza Unknown 03/16/2018 Administered Influenza Unknown 01/24/2019 Administered Influenza Unknown 02/07/2020 Administered Influenza Unknown 01/24/2021 Administered Influenza Unknown 02/10/2022 Administered Influenza Unknown 01/26/2024 Administered Social History Tobacco Use: Social History Observation Description Date Details (start date - stop date) Former Smoker NA - NA Tobacco Use/Smoking Question Answer Notes Patient is [...] Never (0 point) Points 1 Interpretation Negative Section Notes: Nonsmoker; no sig. alcohol u se Nonsmoker; no sig. alcohol u se Nonsmoker; no sig. alcohol u se Nonsmoker; no sig. alcohol u se Nonsmoker; no sig. alcohol u se Nonsmoker; no sig. alcohol u se Nonsmoker; no sig. alcohol u se Nonsmoker; no sig. alcohol u se Nonsmoker; no sig. alcohol u se Nonsmoker; no sig. alcohol u se Nonsmoker; no sig. alcohol u se Nonsmoker; no sig. alcohol u se Nonsmoker; no sig. alcohol u se Nonsmoker; no sig. alcohol u se Nonsmoker; no sig. alcohol u se Nonsmoker; no sig. 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) Active confirmed Problem Iron deficiency anemia (40515133) Iron deficiency anemia (D50.9) Active confirmed Problem Polyp colon (67451366) Colon polyp (K63.5) Active confirmed Problem 618070205 Gastroesophageal reflux disease without esophagitis (K21.9) Active confirmed Problem 34480005 Heme + stool (R19.5) Active confirmed Problem Hiatal hernia (04648793) Hiatal hernia (K44.9) Active confirmed Problem Benign neoplasm of stomach (79910118) Gastric polyps (K31.7) Active confirmed Problem 006640374 Iron deficiency anemia due to chronic blood loss (D50.0) Active confirmed Problem 61731503 UGI bleed (K92.2) Active confirmed Problem 68025146 Other iron deficiency anemia (D50.8) Active confirmed Problem 64321463 Iron deficiency anemia, unspecified iron deficiency anemia type (D50.9) Active confirmed Problem 931665351 Abnormal CT scan , stomach (R93.3) Active confirmed Problem 10197660 Diarrhea, unspecified type (R19.7) Active confirmed Problem Diverticulosis of colon (320181540) Diverticulosis of colon (K57.30) Active confirmed Problem 912888860 Anemia due to acute blood loss (D62) Active confirmed Problem 733824129 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) Active confirmed Problem 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) Active confirmed Vital Signs Temperature 96.6 degrees Fahrenheit 08/09/2024 Blood pressure diastolic 01 mm Hg 08/09/2024 Height 65.5 in 08/09/2024 Blood pressure systolic 001 mm Hg 08/09/2024 Weight 142 lbs 08/09/2024 BMI 23.27 kg/m2 08/09/2024 Encounters Encounter Location Date Provider Diagnosis [facility] [address] [place] [phone] 08/09/2024 Dawood Allred Iron deficiency anemia, unspecified iron deficiency anemia type D50.9 [facility] [address] [place] [phone] 02/23/2024 Dawood Allred Iron deficiency anemia, unspecified iron deficiency anemia type D50.9 [facility] [address] [place] [phone] 11/16/2023 Dawood Allred Assessments Encounter Date Diagnosis (ICD Code) Assessment Notes Treatment Notes Treatment Clinical Notes Section Notes 08/09/2024 Iron deficiency anemia, unspecified iron deficiency anemia type (ICD-10 - D50.9) Continue the Omeprazole, Sucralfate, and Iron like you've been doing Follow up with Dr. Hernadez and Dr. Hameed for the blood counts. See me as needed . 02/23/2024 Iron deficiency anemia, unspecified iron deficiency anemia type (ICD-10 - D50.9) Do the blood count lab test at the end of every month. Continue the Omeprazole, Sucralfate, and Iron like you've been doing Overall, Renita appears quite well at the present time. She has responded very nicely to the iron infusions and her hemoglobin has now been stable for about 2 months in the normal range. She is not having any new or worrisome GI complaints and her weight has remained stable since back in July when I last saw her. As such, I did advise her to continue her current medical regimen of the omeprazole, sucralfate, and oral iron supplements. Given all of her extensive GI workup in the past I don't think any GI evaluation is presently required. At this point we will plan to follow her blood counts closely and she will go today for a CBC. She will then repeat that on a monthly basis so as to try to stay on top of things and hopefully notice any significant drops in hemoglobin that could prove symptomatic for her and that would require transfusions. Given her age it would be best to be able to transfuse her sooner rather than have her get symptomatic and land in the ER. If things remain stable I will plan to see her in 6 months for a followup visit. I did advise her to definitely call me should she have any problems or questions I can be of assistance with in the interim. Renita was comfortable with this plan. Thank you again for allowing me to participate in Renita's care. I shall continue to keep you advised of her progress. Plan Of Treatment Pending Test Test Name Order Date IRON + IBC (FE) 09/06/2019 IRON + IBC (FE) 08/23/2018 IRON + IBC (FE) 12/17/2022 IRON + IBC (FE) 11/16/2018 IRON + IBC (FE) 07/03/2020 IRON + IBC (FE) 05/12/2023 IRON + IBC (FE) 07/13/2018 IRON + IBC (FE) 03/05/2020 IRON + IBC (FE) 02/23/2023 IRON + IBC (FE) 03/13/2020 IRON + IBC (FE) 10/06/2018 IRON + IBC (FE) 01/04/2020 FERRITIN 10/06/2018 FERRITIN 01/04/2020 FERRITIN 09/06/2019 FERRITIN 08/23/2018 FERRITIN 11/16/2018 FERRITIN 07/03/2020 FERRITIN 07/13/2018 FERRITIN 03/05/2020 FERRITIN 03/13/2020 CRP 06/13/2021 CBC w DIFF 04/07/2023 CBC w DIFF 06/13/2021 CBC w DIFF 05/31/2023 CBC w DIFF 03/13/2020 CBC w DIFF 10/06/2018 CBC w DIFF 04/15/2023 CBC w DIFF 02/23/2024 CBC w DIFF 01/04/2020 CBC w DIFF 12/17/2022 CBC w DIFF 12/19/2018 CBC w DIFF 09/06/2019 CBC w DIFF 08/23/2018 CBC w DIFF 07/03/2020 CBC w DIFF 11/16/2018 CBC w DIFF 04/18/2019 CBC w DIFF 05/12/2023 CBC w DIFF 03/29/2023 CBC w DIFF 02/23/2023 CBC w DIFF 05/31/2019 CBC w DIFF 07/13/2018 CBC w DIFF 03/05/2020 SED RATE (ESR) 06/13/2021 CELIAC PANEL #10 06/26/2021 CULTURE, STOOL 06/13/2021 STOOL WBC 06/13/2021 C DIFFICILE RFLX PCR 06/13/2021 Ferritin 02/23/2023 Ferritin 12/17/2022 Ferritin 05/12/2023 Future Test Test Name Order Date COLONOSCOPY 01/29/2011 UPPER GI ENDOSCOPY 03/25/2018 COLONOSCOPY 03/25/2018 UPPER GI ENDOSCOPY 01/24/2019 COLONOSCOPY 01/24/2019 COLONOSCOPY 06/26/2021 Insurance Providers Payer Name Payer Address Payer Phone Subscriber Number Group Number Insured Name Patient Relationship to Insured Coverage Start Date Coverage End Date MEDICARE OF [place] [address] [place] [address] [id number] RENITA LONGORIA Self - patient is the insured [employer] ATT[employer] CLAIMS [address] [place] [address] [id number] RENITA LONGORIA Self - patient is the insured Medical (General) History Medical History History ICD Code Colon polyps with tubular ad enomas---4 colonoscopies since 1997---last colonoscopy in 2011 with a small tubular adenoma removed GERD-last EGD in 2000 with t he finding of a hiatal hernia-no Larry's esophagus Right-sided breast cancer-Rx'd with lump ectomy, XRT, and chemo Migraines Restless leg syndrome Denies IN,DM,CVA,Lung disease,renal dise ase Iron def. anemia in 2017--EG D 03/2018 HH, normal duodenal biopsies; Colonoscopy [...] December of 2023. Surgical History Surgery Date(Month/Year) Placement of a temporary ner ve stimulator in her left leg for chronic knee pain 01/2023 Partial hysterectomy due to 12.2 cyst on overies . both overies removed Right knee replacement in 2015 Diverticulitis surgery with tempororary colostomy at [facility] 2014 [facility] Left knee replacement in 2008 Bilateral cataract surgery Breast cancer as above
--- OUTSIDE RECORDS SUMMARY | 2024-11-07 10:53 | XMS_ITS | Data Portability ---
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 Lab CBC 2024 025 [facility], [address] [place] [address], [address], 5 11:41:17 iron + TIBC + ferritin, serum 2024 025 [facility], [address] [place] [address], [address], 5 11:41:17 lipid panel, blood 2023 024 [facility], [address] [place] [address], [address], 5 13:35:18 CBC w/ auto diff 2023 [facility], [address] [place] [address], [address], 5 13:35:18 CMP, serum or plasma 2023 024 [facility], [address] [place] [address], [address], 5 13:35:18 Referral None recorded. Procedures None recorded. Surgeries None recorded. Imaging XR, knee, 3 view 2024 [facility] (Imaging), [address] [place] [address], [address], 5 16:01:33 Medication Orders meloxicam 7.5 mg tablet 2024 [id number], [address] [place] [address], [id number], 15:47:29 prednisone 10 mg tablet 2023 024 SUKHJINDER Not available 4 13:50:57 hydroxyzine HCl 25 mg tablet 2023 024 Not available 15:48:03 Patient TargetsNo targets recorded. Patient Instructions Encounter Date Encounter Id Patient Instructions Last Modified By Organization Details Last Modified Time 12/20/2023 [id number] polymyalgia rheumatica: care instructions Not available 12/20/2023 14:20:50 anemia: care instructions Not available 12/20/2023 14:20:50 iron deficiency anemia: care instructions Not available 12/20/2023 14:20:50 03/27/2024 [id number] advance care planning: care instructions Not available 03/27/2024 14:40:47 Discussed and explained advance directives such as standard forms to the . Face to face discussion lasted for a duration of ___ minutes. [email or web address] Not available 03/22/2024 10:07:08 10/06/2024 [id number] managing nausea from cancer treatment: care instructions Not available 10/06/2024 15:51:37 anemia: care instructions Not available 10/06/2024 15:51:37 Reason for Referral None Reported. Results Created Date Observation Date Name Description Value Unit Range Abnormal Flag Note LastModifiedBy Organization Detail LastModifiedTime 12/29/19 24 12/15/2023 imagi ng/di agnos tic resul t No observ ation record ed. [facility] [address] [place], [address], 12/29/2023 15:03:51 09/06/1909/05/2024 XR, knee, 3 view No observ ation record ed. [address] (Medical Records) [address] [place], [address], 09/06/2024 13:43:52 Result Notes None recorded. Problems Name Problem SNOMED Code Status Onset Date Resolution Date Notes Provider Name and Address Organization Details Recorded Time Dizziness 093305894 Active 2017 Jl Hameed DO [address] [place] [address], [address], [facility] 8 14:10:15 Diverticu losis of sigmoid colon 967854079 Active 2018 Jl Hameed DO [address] [place] [address], [address], [facility] 9 15:05:26 Iron deficienc y anemia 45751555 Active 2018 Jl Hameed DO [address] [place] [address], [address], [facility] 9 15:05:28 Bilateral osteoarth ritis of knees 622697479815 107 Active 2019 Jl Hameed DO [address] [place] [address], [address], [facility] 0 13:44:31 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 Jl Hameed, DO [address] [place] [address], [address], [facility] 0 14:54:51 Closed fracture of malar AND/OR maxillary bones 92457894 Active 2019 Jl Hameed DO [address] [place] [address], [address], [facility] 0 14:56:18 Polymyalg ia rheumatic a 58772637 Active 2021 Jl Hameed, DO [address] [place] [address], [address], [facility] 2 13:37:53 Disorder of breast 58377697 Active 2017 Cancer , lymph nodes taken out, Chemo/ Radiat ion Vero shen [facility] 8 12:25:35 Migraine 30524336 Active 2017 Vero shen [facility] 8 12:26:02 Gastroeso phageal reflux disease 010240192 [facility] 12:26:10 [facility]less legs 18940514 [facility] 12:26:28 Hyperlipi demia 70283547 Active 2017 Veromarlyn shen [facility] 8 12:26:54 Myalgia/m yositis - multiple 829782163 Active 2021 BELEN BEGUM [address] [place] [address], [address], [facility] 2 15:33:50 Tremor 06389574 Active 2022 Jl Hameed DO [address] [place] [address], [address], [facility] 3 15:17:14 Acute urinary tract infection 584251291 Active 2022 Jl Hameed, DO [address] [place] [address], [address], [facility] 3 11:26:31 Stomach cramps 53670804 Active 2022 Jl Hameed DO [address] [place] [address], [address], [facility] 3 09:36:53 Atrial tachycard ia 877702210 Active 2022 Jl Hameed [address], [address], [facility] 3 09:37:39 Unsteady when walking 60744891 Active 2022 Jl Hameed DO [address] [place] [address], [address], [facility] 3 09:38:19 Nausea, vomiting and diarrhea 2589398 Active 2022 BELEN BEGUM [address] [place] [address], [address], [facility] 3 15:29:32 Liver function tests outside reference range 234517347 Active 2022 BELEN BEGUM [address] [place] [address], [address], [facility] 3 11:01:05 Abdominal pain 55646005 Active 2022 BELEN BEGUM [address] [place] [address], [address], [facility] 3 11:11:43 Cyst of uterus 371261 Active 2022 Jl Hameed DO [address] [place] [address], [address], [facility] 3 10:42:25 Urinary incontine ile 965861542 Active 2022 Jl Hameed DO [address] [place] [address], [address], [facility] 3 10:51:28 Dieulafoy vascular malformat ion of stomach 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 2022 Jl Hameed DO [address] [place] [address], [address], [facility] 3 22:13:57 Acute upper gastroint estinal hemorrhag e 64712877 Active 2022 Jl Hameed DO [address] [place] [address], [address], [facility] 3 22:14:28 Anemia 298909095 Active 2022 Jl Hameed DO [address] [place] [address], [address], [facility] 3 22:15:19 Bilateral hearing loss 57671053 Active 2022 BELEN BEGUM [address] [place] [address], [address], [facility] 3 15:04:21 Melena 6762309 Active 2022 BELEN BEGUM [address] [place] [address], [address], [facility] 3 10:41:10 Inappropr iate sinus tachycard ia 437066824 Active 2022 Jl Hameed DO [address] [place] [address], [address], [facility] 3 10:16:50 Gastroint estinal hemorrhag e 20233781 Active 2022 Jl Hameed DO [address] [place] [address], [address], [facility] 3 13:45:49 Recurrent urinary tract infection 039215711 Active 2023 Jl Hameed DO [address] [place] [address], [address], [facility] 4 16:46:48 Synovial cyst of left knee 731990559453 102 Active 2023 Jl Hameed, DO [address] [place] [address], [address], [facility] 4 12:37:49 Dysuria 01644372 Active 2023 Jl Hameed, DO [address] [place] [address], [address], [facility] 4 11:26:29 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 186056845 Active 2023 Jl Hameed, DO [address] [place] [address], [address], [facility] 4 16:07:14 Allergic reaction to drug 252068205 Active 2023 BELEN BEGUM [address] [place] [address], [address], [facility] 4 14:05:39 Facial eczema 436907645 Active 2023 Jl Hameed, DO [address] [place] [address], [address], [facility] 4 16:25:32 Disorder of vitamin B12 817030800 Active 2023 Jl Hameed DO [address] [place] [address], [address], [facility] 4 16:32:02 Eczema 69537717 Active 2023 Jl Hameed DO [address] [place] [address], [address], [facility] 4 14:35:51 Contusion of right forearm 516585261055 58201 Active 2024 Jl Hameed DO [address] [place] [address], [address], [facility] 5 13:49:20 Pain of left knee joint 734289092083 107 Active 2024 Jl Hameed, DO [address] [facility], [place], [address], [facility] 5 13:50:12 Problem Notes None recorded. Procedures Surgical History Date Name Laterality Status Provider Name and Address Organization Details Recorded Time Knee Surgery completed [facility] 07/13/2017 12:27:53 Knee Surgery completed [facility] 07/13/2017 12:28:28 Cholecystectomy completed [facility] 07/13/2017 12:29:02 Imaging Results None recorded. Procedure Notes None recorded. Medical Equipment None Reported. Allergies Allergen ID Allergen Name Allergen Category Reaction Reaction Severity Criticality Documentation Date Start Date Code Code System Note Provider Name and Address Organization Details Recorded Time 2386 Lyrica medicatio n Not available Not available Not available 02/01/2018 36696 1 RxNorm leg pain, sleep ing all the time Veromarlyn Mercado [facility] 8 13:32:10 550 gabapenti n medicatio n Not available Not available Not available 07/13/2017 10201 RxNorm Light head, numbn ess in hands Veromarlyn Mercado [facility] 8 12:22:40 551 Product containin g penicilli n (product) medicatio n Not available Not available Not available 07/13/2017 88341 8001 SNOMED Veromarlyn Mercado [facility] 8 12:22:54 552 Product containin g 3-hydroxy -3-methyl glutaryl- coenzyme A reductase inhibitor (product) medicatio n Not available Not available Not available 07/13/2017 83625 009 SNOMED Veromarlyn Mercado [facility] 8 12:23:15 553 Levaquin medicatio n Not available Not available Not available 07/13/2017 23922 2 RxNorm Veromarlyn Mercado [facility] 8 12:23:26 8253 Gemtesa medicatio n rash Not available Not available 12/06/20232023 07496 16 RxNorm Ashley [facility] 4 13:44:53 8254 Substance with sulfonami de structure and antibacte rial mechanism of action (substanc e) medicatio n Not available Not available Not available 12/06/2023 74512 8003 BELEN HODGSON [address] [place], [address], [facility] 4 14:06:19 Medications Name [...] 1 EXTRA DOSE 2 HOUR LATER NEEDED 2024 active Not Available Not Available Not Avai lable senna 8.6 mg tablet TAKE 2 TABLETS [...] Relief 50 mcg/actuati on nasal spray,suspe nsion [place] 1 spray every day by intranasa l route for 30 days. 10/02 completed Not Available Not Available Not Available Shingrix (PF) 50 mcg/0.5 mL intramuscul ar suspension, kit 07/09 completed Not Available Not Available Not Available Fluad Quad 2031-6576(6 5yr up)(PF) 60 mcg (15 mcg x 4)/0.5mL IM syringe ADM 0.5ML IM UTD 03/27 completed Not Available Not Available Not Available BinaxNOW COVID-19 Ag Self Test kit TEST DIRECTED TODAY 05/08 completed Not Available Not Available Not Available Vitals Date Recorded Body height Body mass index (BMI) Body weight Systolic And Diastolic Provider Name and Address Organization Details Last Updated DateTime 09/05/2024 162.56 cm 24.4 kg/m2 36855.12 g 132/73 mm[Hg] Kell Jamil [facility] 09/05/2024 13:36:06 Date Recorded Body height Body mass index (BMI) Body weight Heart rate Oxygen saturation Oxygen saturation in Arterial blood by Pulse oximetry Systolic And Diastolic Provider Name and Address Organization Details Last Updated DateTime 4 162.56 cm 24 kg/m2 65175.2 9 g 74 /min 98 % 98 % 128/80 mm[Hg] Ashley Gerardo [facility] 4 13:46:47 Date Recorded Body height Body mass index (BMI) Body weight Heart rate Oxygen saturation Oxygen saturation in Arterial blood by Pulse oximetry Systolic And Diastolic Provider Name and Address Organization Details Last Updated DateTime 4 162.56 cm 25.5 kg/m2 85952.4 7 g 74 /min 99 % 99 % 140/86 mm[Hg] Alexx Arellano [facility] 4 13:51:21 Date Recorded Body height Body mass index (BMI) Body weight Heart rate Oxygen saturation Oxygen saturation in Arterial blood by Pulse oximetry Systolic And Diastolic Provider Name and Address Organization Details Last Updated DateTime 4 162.56 cm 24.5 kg/m2 23023.7 1 g 74 /min 99 % 99 % 162/84 mm[Hg] Jl Hameed, DO [address] [place], [address], [facility] 14:05:31 Social History Question Answer Notes LastModified by Organizat ion Details LastModified Time Tobacco Smoking Status [facility]oker Not Available [facility] 02/27/2020 03:36:23 What Was The Date Of Your Most Recent Tobacco Screening? 09/05/2024 [email or web address] Information not available 09/05/2024 How Many Years Have You Smoked Tobacco? 12 [id number] Information not available 02/27/2020 Sex: Unknown Functional [...] Tdap 03/23/20 20 completed Radha Gencarelle hermelinda [facility] 01/06/2021 14:52:31 Pneumococcal conjugate PCV 13 02/25/20 17 completed Michelle shen [facility] 01/06/2021 14:58:01 COVID-19, mRNA, LNP-S, PF, 100 mcg/0.5mL dose or 50 mcg/0.25mL dose 06/26/19 21 completed Michelle shen [facility] 01/06/2021 14:58:48 COVID-19, mRNA, LNP-S, PF, 100 mcg/0.5mL dose or 50 mcg/0.25mL dose 05/28/19 21 completed Jl Hameed DO [address] [place], [address], [facility] 07/14/2021 16:25:57 COVID-19, mRNA, LNP-S, PF, 100 mcg/0.5mL dose or 50 mcg/0.25mL dose 04/07/20 21 completed Jl Hameed DO [address] [place], [address], [facility] 07/14/2021 16:26:04 Influenza, split virus, quadrivalent, preservative 04/07/20 21 [facility] 09:34:49 influenza, unspecified formulation 04/03/20 22 completed Jl Hameed DO [address] [place] [address], [address], [facility] 05/15/2022 14:49:17 Influenza, split virus, quadrivalent, preservative 02/17/20 18 [facility] 06/08/2018 14:33:06 pneumococcal polysaccharide PPV23 06/25/19 19 completed Jl Hameed DO [address] [place] [address], [address], [facility] 06/25/2018 10:41:36 zoster live 11/05/19 19 completed Jl Hameed DO [address] [place] [address], [address], [facility] 11/05/2018 10:43:34 zoster live 01/14/20 19 [facility] 01/16/2019 08:06:43 Influenza, adjuvanted, trivalent, PF 01/29/20 19 [facility] 01/30/2019 12:01:02 Influenza, split virus, quadrivalent, preservative 01/29/20 20 completed Jl Hameed DO [address] [place] [address], [address], [facility] 04/16/2020 14:30:36 Influenza, split virus, quadrivalent, preservative 02/19/20 17 [facility]2017 13:26:49 Past Encounters Encounter ID Performer Location Encounter Start Date Encounter Closed Date Diagnosis/Indication Diagnosis SNOMED-CT Code Diagnosis ICD10 Code Diagnosis Note [id number] Jl Hameed [facility] [address],[place] [address] 08/16/2017 13:33:31 08/16/2017 14:10:36 Chronic kidney disease stage 2 674889670 N18.2 unclear etiology, has been present since at least 07/2015, though her older records are in a second volume. will recheck labs, reccommend being very well hydrated handwritte n lab for CMP, lipids, cbc will need to pull second volume to determine when sx started Liver func tion tests outside reference range 202318935 R94.5 handwritte n lab for CMP, lipids, cbc, hcv, hbv Generalize d anxiety disorder 53335981 F41.1 on fluoxetine , for many years Restless legs 71218549 G 25.81 takes lyrica with good effect Upper resp iratory infection 10303866 J06.9 likely viral, recommend fluids, rest, mucinex-dm , sx likely will last 7-10 days, f/u if sx worsen or persist there after. [id number] Jl Hameed [facility] [address] [facility], [place] [address] 02/01/2018 13:22:59 02/01/2018 14:08:40 Chronic kidney disease stage 2 364055635 N18.2 unclear etiology, has been present since at least 07/2015, though her older records are in a second volume. will recheck labs, reccommend being very well hydrated worsened in july labs, will recheck will dc prilosec due to possible renail impairment Liver func tion tests outside reference range 397552074 R94.5 improved in july labs Generalize d anxiety disorder 29069824 F41.1 on fluoxetine , for many years Restless legs 94319496 G 25.81 will check levels today lyrica has been d/cd will trial clonazepam Hyperlipidemia 04333240 E78.5 borderline , will recheck Gastroesop hageal reflux disease 355949610 K21.9 [id number] Jl Hameed [facility] [address] [facility],[place] [address] 02/23/2018 13:33:51 02/23/2018 14:24:06 Depressive disorder 42853157 F32.0 stable migraines also stable Unintentio nal weight loss 228979498 R63.4 with abdominal pain and anemia wgt loss >40lbs Iron defic iency anemia 49692223 D50.9 [id number] Jl Hameed [facility] [address] [facility], [place] [address] 03/11/2018 11:10:51 03/11/2018 13:27:39 Anemia 729148013 D64.9 will cont with iron until eval as below Epigastric pain 05437116 R10.13 will need to have GI eval and will need EGD etc and colonoscop y given the patients sgt loss of 40 lbs and anemia and evidence of gastric abnormalit y Mass of ri ght adrenal gland 9533625685 7390375 E27.8 per radiologis t needs the ulstrasoun d done to confirm cyst [id number] Jl Hameed [facility] [address] [facility],[place] [address] 06/08/2018 14:06:13 06/08/2018 15:18:39 Adult health examination 610322945 Z00.00 Abdominal pain 28200261 R10.9 believe this from diverticul osis not itis and that she just has some smoulderin g inflammati on this would also explain her mild anemia with no evid or source of bleed Iron defic iency anemia 01057491 D50.9 need to rechk levels she is taking iron daily this also acccounts for her RLS getting better Diverticul osis of sigmoid colon 891988942 K57.30 sanchez adjust her diet and add slowly metamucil [id number] Jl Hameed [facility] [address] [facility],[place] [address] 07/13/2018 13:57:33 07/13/2018 14:44:23 Malaise and fatigue 029972738 R53.83 wondering if her blood count has dropped again worried that she is bleeding again recheck cbc iron etc Iron defic iency anemia 68221356 D50.9 need to rechk levels she is taking iron daily but this may not be enough her RLS are back again and is usu indicative of low iron Restless legs 34673037 G 25.81 check iron [id number] Jl Hameed [facility] [address] [facility], [place] [address] 07/22/2018 11:43:48 07/22/2018 15:27:37 Iron deficiency anemia 04058414 D50.9 is from a gi bleed as evidenced from her heme positive occult stool cards X3 will need to be seen again by dr deon barnes and will need rescope and perhaps egd if thoughts of upper gi source poss [id number] Jl Hameed [facility] [address] [facility], [place] [address] 12/28/2018 14:42:44 12/28/2018 15:14:54 Cough 17187443 R05 doesn't seem infection, suspect allergies/ PND will r/o atypical pna - get cxr Allergic rhinitis 353554 04 J30.9 allergy treatments Insomnia 236239285 G47.0 0 perhaps xyzal will help with this trial for a couple weeks and see if further treatment is needed [id number] Jl Hameed [facility] [address] [facility], [address] [place] [address] 07/10/2019 13:28:38 07/10/2019 14:03:55 Adult health examination 615326068 Z00.01 she has gained some weight back thankfully Iron defic iency anemia 38946168 D50.9 is from a gi bleed as evidenced from her heme positive occult stool cards X3 she feels markedly better after the IRON infusions will need to be seen again by dr deon barnes and will be followed [id number] Jl Hameed [facility] [address] [facility], [place] [address] 10/03/2019 15:17:44 10/03/2019 16:27:14 Pain of right calf 0948676936 750857 M79.661 the patient reports swelling, warmth in the right calf and tenderness to palpation Edema of l ower extremity 227856117 R60.0 swelling of bilateral knees will send back to ortho [id number] Jl Hameed [facility] [address] [facility], [place] [address] 01/08/2020 13:28:57 01/08/2020 14:18:35 Hyperlipidemia 04861082 E78.5 will rechk at next lab Iron defic iency anemia 91536109 D50.9 is from a gi bleed as evidenced from her heme positive occult stool cards X3 she feels markedly better after the IRON infusions has finished her iron infusions but will follow the hematologi st in 3 mo will need to be seen again by dr howell soon and will be followed Diverticul osis of sigmoid colon 689685202 K57.30 sanchez adjust her diet and add slowly metamucil Prerenal azotemia 733635 001 N25.9 [id number] Jl Hameed [facility] [address] [facility],[place] [address] 03/27/2020 13:25:39 03/27/2020 13:56:50 Migraine 09625961 G43.909 helped with the sumatripta n, increased after the injury Dizziness 521500657 R42 the patient doing much better today Vertigo 378871119 R42 [place] [id number] Jl Hameed [facility] [address] [facility],[place] [address] 04/16/2020 14:08:59 04/16/2020 15:14:12 Dizziness 051050881 R42 part of her post concussion synd Iron defic iency anemia 71369961 D50.9 is from a gi bleed as evidenced from her heme positive occult stool cards X3 she feels markedly better after the IRON infusions has finished her iron infusions but will follow the hematologi st in 3 mo will need to be seen again by dr lynda barnes and will be followed Gastroesop hageal reflux disease 914305847 K21.9 stable on current meds 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 relates is slowly getting better but still has some lingering symptoms and Closed fra cture of malar AND/OR maxillary bones 30645774 S02.400A slowly healing and doing better ent and dental both feel no surgery is needed [id number] Jl Hameed DO [facility] Internal Medicine [address] [facility],[place] [address] 08/26/2020 13:25:05 08/26/2020 14:40:35 Iron deficiency anemia 51298698 D50.9 is from a gi bleed as [...] cbc decreases Diverticul osis of sigmoid colon 375163801 K57.30 has adjust her diet and cont metamucil Dizziness 698513577 R42 finally resolved now post concuss [id number] Jl Hameed [facility] Internal Medicine [address], [place] [address] 01/08/2021 13:20:59 01/08/2021 14:46:00 Mass of right adrenal gland [id number] 5587698 E27.8 per radiologis t needs the lashawn veliz done to confirm cyst Depressive disorder 3548 9007 F32.0 stable migraines also stable Closed fra cture of malar AND/OR maxillary bones 55452613 S02.400A slowly healing and doing better ent and dental both feel no surgery is needed Iron defic iency anemia 16198691 D50.9 is from a gi bleed as [...] she usu knows when cbc decreases Hyperlipidemia 22256909 E78.5 will rechk at next lab Gastroesop hageal reflux disease 169789158 K21.9 stable on current meds Bilateral osteoarthritis of knees 0058739922 53807 M17.0 having pain around prosthetic swe will try some meloxicam [id number] Jl Hameed DO [facility] Internal Medicine [address],[place] [place] [address] 05/14/2021 08:12:09 05/16/2021 13:11:42 Iron deficiency anemia 17084003 D50.9 she feels a little better after [...] her see a GI specialist Restless legs 22832816 G 25.81 check iron Diverticul osis of sigmoid colon 568480963 K57.30 has adjust her diet and cont metamucil Mass of ri ght adrenal gland 7515525681 6327982 E27.8 per radiologis t needs the ultrasound done to confirm cyst Depressive disorder 3548 9007 F32.0 stable migraines also stable Closed fra cture of malar AND/OR maxillary bones 38595944 S02.400A stable and doing better ent and dental both feel no surgery is needed Migraine 19705068 G43.90 9 has been stable [place] [id number] Jl Hameed [facility] Internal Medicine [address] [facility], [place] [address] 07/14/2021 16:17:28 07/15/2021 11:02:41 Diverticulosis of colon 905978559 K57.30 cont to improve and eating good and bowels are much better she will call andreas if her pain returns in her LLQ or fever or both [id number] Jl Hameed [facility] Internal Medicine [address],[place] [address] 09/26/2021 15:51:14 09/26/2021 16:24:35 Hyperlipidemia 45475140 E78.5 will rechk at next lab Gastroesop hageal reflux disease 528243569 K21.9 stable on current meds Iron defic iency anemia 93003602 D50.9 doing much bettereati ng better PRIOR [...] a GI specialist Advance care planning 71 6339878 Z71.89 done [id number] Jl Hameed DO [facility] Internal Medicine [address],[place] [facility] [place] [place] [address] 12/19/2021 13:31:27 12/19/2021 14:33:24 Migraine 73467599 G43.909 has been stable but ran out of sumatripta n Advance care planning 71 2740433 Z71.89 [place] [facility] [place]ymyalgi a rheumatica 30501165 M35.3 we will begin to slowly taper the prednisone will have been on pred 40mg for one month on dec 5will decrease to 35 mg after the weekend and see how she doeswill get an esr after a couple [id number] Jl Hameed DO [facility] Internal Medicine [address] [facility] [address],[place] [address] [facility] [place] [place] [address] 01/16/2022 16:17:09 01/19/2022 09:59:46 Polymyalgia rheumatica 23310295 M35.3 she feels great and is doing wonderfule sr was 80 and is now down to 4appetite is too good Bilateral osteoarthritis of knees 2761711961 88132 M17.0 is feeling great Diverticul osis of sigmoid colon 797191601 K57.30 has adjust her diet and cont metamucil Gastroesop hageal reflux disease 161915311 K21.9 stable on current meds Iron defic iency anemia 46684056 D50.9 doing much bettereati ng better PRIOR [...] to have her see a GI specialist [id number] Jl Hameed DO [facility] Internal Medicine [address] [facility] [address],[place] [address] 03/16/2022 15:06:22 03/16/2022 15:38:34 Polymyalgia rheumatica 76718740 M35.3 she feels great and is doing wonderfule sr was 80 and is now down to 4 and last week 7 so is down to her last dose and now dc we will rechk a esr in few weeksappet ite is too good she will call if her sx return and we will do quick pred pulse dosewill see in spring [id number] Jl Hameed, [facility] Internal Medicine [address] [facility] [address],[place] [address] 05/15/2022 14:37:24 05/15/2022 15:28:13 Iron deficiency anemia 78858201 D50.9 now her symptoms are mimicing her prior severe iron def anemia we will check lab now and have her see dr lynda johns 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 per radiologis t needs the ultrasound done to confirm cyst Polymyalgi a rheumatica 41557874 M35.3 she feels great and is doing wonderfule sr was 80 and is now down to 4 and last week 7 so is down to her last dose and now dc we will rechk a esr in few weeksappet ite is too good she will call if her sx return and we will do quick pred pulse dosewill see in spring Depressive disorder 3378 9007 F32.0 stable migraines also stable Closed fra cture of malar AND/OR maxillary bones 91425221 S02.400A stable and doing better ent and dental both feel no surgery is needed Advance care planning 71 7791584 Z71.89 [place] [facility] [id number] Jl Ginger Hameed, [facility] Internal Medicine [address] [facility] [address],[place] [address] 07/01/2022 14:20:51 07/01/2022 15:27:01 Polymyalgia rheumatica 74940778 M35.3 she feels great and is doing [...] see in spring Advance care planning 71 7784503 Z71.89 Has on file with [facility] Iron defic iency anemia 57607550 D50.9 now wondering if iron def has returned and is causing the tremor in handswe will rechk in lab now Tremor 63053759 R25.1 unsure etiol could be from iron def or ?pred taper ? no med that are new etcwill chk lab now if the labe is negative then we should try a beta clifford [id number] Jl Hameed DO [facility] Internal Medicine [address] [facility] [facility], [place] [address] 08/11/2022 10:24:40 08/11/2022 12:19:51 Adult health examination 753812929 Z00.00 has noticed increased fatigue as of late Acute urin mahesh tract infection 927254878 N39.0 Atrial fibrillation 4943 6004 I48.91 will initiate metoprolol and put her on asa until definitive dx we obtained tentative dx by exam and by Esmer [id number] Jl Hameed DO [facility] Internal Medicine [address] [facility], [place] [address] 08/28/2022 09:00:48 08/28/2022 11:10:24 Iron deficiency anemia 84094500 D50.9 cbc normal iron level is also goodwillst op iron supp she has been having GI upset Stomach cramps 75085512 R10.9 prob secondary to sulfa med now feels better Atrial tachycardia 19265 6006 I47.1 we will have her cont the metoprolol low dose and see her in october Unsteady when walking 22 182648 R26.89 will get a eval done [id number] Jl Hameed DO [facility] Internal Medicine [address], [place] [address] 09/14/2022 09:12:26 09/14/2022 11:23:12 Abdominal pain 46669344 R10.11 start on dicyclomin e 20 mg TID and nausea she will continue zofran Nausea, vo miting and diarrhea 6821558 R11.2 elevated LFTs, protein and signs of anemia; concern for biliary symptom problem 79995 Jl Hameed DO [facility] Internal Medicine [address] [facility] [facility], [place] [address] 10/02/2022 15:40:40 10/02/2022 16:24:29 Pre-surgery evaluation 646462844 Z01.818 The patient was seen in the office today for pre-op evaluation . All medical conditions on patient's problem list were addressed and are currently stable, no interventi on needed at this time. Based on history and physical performed, the patient is cleared for surgery. [id number] Jl Hameed DO [facility] Internal Medicine [address] [facility],[place] [address] 11/20/2022 08:00:16 11/20/2022 14:17:23 Polymyalgia rheumatica 57801885 M35.3 she feels great and is doing wonderfuln o longer on prednisone she will call if her sx return and we will do quick pred pulse dosewill see in spring Gastroesop hageal reflux disease 214001518 K21.9 stable on current meds Cyst of uterus 303559 N 88.8 did well with surgery and no major issues was 12cm in size Diverticul osis of sigmoid colon 546819376 K57.30 has adjust her diet and cont metamucil Urinary incontinence 165 352929 R32 going to a incont clinic at [facility] Bilateral osteoarthritis of knees 1789003353 23143 M17.0 we will provid cor t inj when she is ready [id number] Jl Hameed DO [facility] Internal Medicine [address] [facility], [place] [address] 12/25/2022 08:04:46 12/25/2022 15:24:45 Acute upper gastrointestinal hemorrhage 43682128 K92.1 will set up with recheck BW Gastroesop hageal reflux disease 667059055 K21.9 stable Hyperlipidemia 41078259 E78.2 stable Iron defic iency anemia 19781529 D50.9 stable Bilateral hearing loss 40505456 H90.5 referral sent [id number] Jl Hameed DO [facility] Internal Medicine [address] [facility] [facility], [place] [address] 02/22/2023 09:47:49 02/22/2023 10:59:43 Bilateral osteoarthritis of knees 0598490047 84952 M17.0 she has a new stimulator doing well with it so far Iron defic iency anemia 90835542 D50.9 cbc normal if iron level is also goodwillst op iron supp she has been having GI upset Acute uppe r gastrointestinal hemorrhage 29315891 K92.1 no further bleedingno perlita Inappropri ate sinus tachycardia 452353230 I47.11 quiet nno issues [id number] Jl Hameed [facility] Internal Medicine [address] [facility],[place] [address] 04/21/2023 09:18:25 04/21/2023 15:17:48 Bilateral osteoarthritis of knees 9123739428 09876 M17.0 she has a new stimulator doing well with it so far Anemia 313168121 D64.9 will cont with iron until eval as below Inappropri ate sinus tachycardia 472771368 I47.11 quiet no issues Gastrointe stinal hemorrhage 20460211 K92.2 has had major work up after recent bleeding that required mult transfusio ns (at least 4)await results of video capsule [id number] Jl Hameed [facility] Internal Medicine [address] [facility],[place] [address] 07/26/2023 11:53:47 07/26/2023 14:25:43 Synovial cyst of left knee 7996961045 75787 M71.22 ruptured now resolving discussed care and ongoing tx Iron defic iency anemia 47248567 D50.9 doing fantastic with her iron infusions Acute urin mahesh tract infection 451814506 N39.0 now is asymptomat ictold her to use the lubricant every day [id number] Jl Hameed [facility] Internal Medicine [address],[place] [address] 12/06/2023 13:29:44 12/06/2023 14:45:24 Depression screening 186922880 Z13.31 SCREENING NEGATIVE Allergic r eaction to drug 390288517 T78.49XA will start on prednisone for the rash (allergic reaction)w ill set up wtih hydroxyzin e for the itch specifical ly [id number] Jl Hameed, [facility] Internal Medicine [address],[place] [address] 12/20/2023 13:45:11 12/20/2023 14:22:27 Polymyalgia rheumatica 19073005 M35.3 she feels great and is doing wonderfuln o longer on prednisone she will call if her sx return and we will do quick pred pulse dosewill see in spring 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 and doing well with iron infusions Anemia 859064059 D64.9 will cont with iron until eval as below Iron defic iency anemia 81683974 D50.9 doing fantastic with her iron infusions [id number] Jl Hameed [facility] Internal Medicine [address],[place] [address] 03/27/2024 13:49:10 03/27/2024 14:44:29 Adult health examination 503749090 Z00.01 has noticed increased fatigue as of late Screening for cardiovascular system disease 628776325 Z13.6 Screening mammography 24 154088 Z12.31 not required 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 well Hyperlipidemia 71811736 E78.2 will rechk at next lab Iron defic iency anemia 34641669 D50.9 doing fantastic with her iron infusions has been stable at 12.2 the last few months skipping iron infusion this month per dr howell Eczema 19915494 L30.9 [id number] Jl Miles Yoseph [facility] Internal Medicine [address] [facility] [address] [address] 09/05/2024 13:29:17 09/05/2024 13:56:12 Hyperlipidemia 41406426 E78.2 will rechk at next lab Depression screening 171 179672 Z13.31 neg Iron defic iency anemia 67903375 D50.9 doing fantastic with her iron infusions has been stable at 13.5 the last few months skipping iron infusion this month per dr howell Contusion of right forearm 4400891220 8234063 S50.11XA noted healing but still sore will use tylenol prn Pain of le ft knee joint 7002839214 85612 M25.562 [id number] DO Yanely Koch Internal Medicine [address],[place] [address] 10/06/2024 15:19:24 10/06/2024 16:01:25 Pain of left knee joint 4800274346 55376 M25.562 cont with tylenoll for now melox helped but we need lab first Anemia 946692020 D64.9 will cont with iron until eval as below Disorder o f vitamin B12 229370976 E53.8 doing well Stomach cramps 36685424 R10.9 resolved Nausea, vo miting and diarrhea 1452764 R11.2 resolved Health Concerns Section Related Observation LastModified by Organization Detai ls LastModified Time None Recorded Concern Status LastModified by Organization Details LastModified Time None Recorded Advance Directives Directive None Recorded Payers Insurance Date Sequence Insurance Name Policy Number Policy Barnhart Covered Member ID Barnhart Member ID Guarantor Name 10/03/2024 1 [place] [employer] Renita Ritchie [id number] Renita Ritchie 10/03/2024 2 [place] [id number] Renita Ritchie [id number] Renita Ritchie Notes Date Note Type [...] and long hot showers BELEN BEGUM [address] [facility], [place], [address], [facility] Internal Medicine 12/06/2023 14:20:25 12/20/19 24 text/htm [...] between breasts and is very itchy Jl Hameed, DO [address] [facility], [place], [address], [facility] Yanely Internal Medicine 12/20/2023 14:21:08 03/27/20 24 text/htm [...] lighting in the home feeling great Jl Hameed DO [address] [place] [address], [phone], [facility] Internal Medicine 03/27/2024 14:42:23 09/06/19 25 [...] been in good shape by dr mynor Hameed DO [address] [place] [address], [phone], [facility] Internal Medicine 09/05/2024 13:53:26 10/07/19 25 [...] is very tired as of late Jl Hameed DO [address] [place] [address], [phone], [facility] Internal Medicine 10/06/2024 15:52:29 OBGyn Episode No OBEpisode recorded.
[2024-11-07 13:51] LABS: MANUAL DIFF FLAG NO
[2024-11-07 14:00] LABS: Hematocrit 35.5 % (37.0-47.0); Hemoglobin 10.9 g/dl (12.0-16.0); Imm Gran Abs Auto 0.01 X10*3/uL (0.00-0.03); Imm Gran Pct Auto 0.2 % (0.0-0.4); Lymphocytes Absolute Auto 1.0 X10*3/uL (1.2-4.9); Mean Corpuscular HGB Conc 30.7 g/dl (31.0-35.0); Mean Corpuscular Hemoglobin 28.7 pg (27.0-33.0); Mean Corpuscular Volume 93.4 fL (80.0-98.0); NRBC Abs Auto 0.000 X10*3/uL (0.0-0.012); NRBC Pct Auto 0.0 /100WBC (0.0-0.2); Platelet Count 272 X10*3/uL (160-400); Red Blood Count 3.80 X10*6/uL (4.20-5.50); White Blood Count 4.1 X10*3/uL (4.8-10.8)
== END 2024-11-07 10:00 | disposition home or self-care (01) ==
LOC: HO.MANLDS 09:59
PROVIDERS: Visit Provider Internal Medicine
DX: D50.9 Iron deficiency anemia, unspecified (principal)
CPT/HCPCS: 36415; 85025

== ENCOUNTER 2025-01-16 09:21 | Outpatient (REF) | payer MEDICARE, SELFPAY ==
--- OUTSIDE RECORDS SUMMARY | 2025-01-16 11:09 | XMS_ITS | Encounter Summary ---
Author Organization [facility] Address [address] [place] [address] Phone Care Team Providers Care Chief Specialist Leed Name Role Phone Jl Hameed DO Primary Care Provider [phone] Encounter Details Date Type Department Care Team (Late st Contact Info) Description 10/02/2019 Transcribe Orders [facility] [address] [place] [address] Dawood Allred MD [address] [place] [address] Iron deficiency anemia secondary to blood loss (chronic) (Primary Dx) Social History Tobacco Use Types Packs/Day Years Used Date Smoking Tobacco: Never Assessed Comments Unknown Sex and Gender Information Value Date Recorded Sex Assigned at Not on file Legal Sex Female 6:51 PM EST Gender Identity Not on file Sexual Orientation Not on file documented as of this encounter Plan of Treatment Not on file documented as of this encounter Results * (ABNORMAL) CBC and differential (10/02/2019 11:09 AM EDT) WBC 4.20 4.00 - 11.00 K/uL [facility] Comment:Note Reference Range updates to all CBC and Differential results. RBC 4.28 3.72 - 5.30 M/uL [facility] HGB 10.3(L) 11.4 - 15.9 g/dL [facility] Comment:Note updated Referen ce Ranges for all CBC and Differential results. HCT 33.9(L) 34.2 - 46.8 % [facility] PLT 335 140 - 430 K/uL [facility] MCV 79.2 78.0 - 97.0 fL [facility] MCH 24.1(L) 25.0 - 33.0 pg [facility] MCHC 30.4(L) 32.0 - 36.0 g/dL [facility] RDW 17.7(H) 11.0 - 16.0 % [facility] MPV 10.8 8.4 - 12.8 fl [facility] NRBC 0.00 0 /100 WBCs [facility] ABSOLUTE NRBC 0.00 0 K/uL [facility] DIFF METHOD Auto [facility] NEUTS 58.1 43.0 - 75.0 % [facility] LYMPHS 26.0 18.2 - 47.4 % [facility] MONOS 10.0 4.00 - 11.00 % [facility] EOS 4.5 0.0 - 8.0 % [facility] BASOS 1.2 0.0 - 2.0 % [facility] Granulocytes, immature (%) 0.2 0.0 - 0.9 % [facility] ABSOLUTE NEUTS 2.44 1.80 - 7.70 K/uL [facility] ABSOLUTE LYMPHS 1.09 1.00 - 3.10 K/uL [facility] ABSOLUTE MONOS 0.42 0.20 - 0.80 K/uL [facility] ABSOLUTE EOS 0.19 0.00 - 0.80 K/uL [facility] ABSOLUTE BASOS 0.05 0.00 - 0.09 K/uL [facility] Granulocytes, immature 0.01 0.00 - 0.05 K/uL [facility] Blood 10/02/2019 11:0 9 AM EDT 10/02/2019 11:23 AM EDT us Dawood Allred MD LAB BLOOD ORDERABLES Final Result [facility] [address] [place] [address] * Ferritin (10/02/2019 11:09 AM EDT) FERRITIN 36 13 - 150 ug/L [facility] Blood 10/02/2019 11:0 9 AM EDT 10/02/2019 11:23 AM EDT us Dawood Allred MD LAB BLOOD ORDERABLES Final Result Performing Organization Address [facility]/ZIP Co de Phone Number [address] [address] * (ABNORMAL) Iron and iron binding capacity (10/02/2019 11:09 AM EDT) IRON 32 30 - 160 ug/dL [facility] IRON BINDING CAPACITY 343 228 - 428 ug/dL [facility] TRANSFERRIN SATURAT. 9(L) 15 - 50 % [facility] Blood 10/02/2019 11:0 9 AM EDT 10/02/2019 11:23 AM EDT us Dawood Allred MD LAB BLOOD ORDERABLES Final Result Performing Organization Address [facility] Co de Phone Number [address] [address] documented in this encounter Visit Diagnoses Diagnosis Iron deficiency anemia secondary to blood loss (chronic)- Primary documented in this encounter Care Teams Chief Specialist Leed Relationship Specialty Start Date End Date Jl Hameed DO [email or web address] PCP - General 04/29/17 documented as of this encounter Additional Source Comments The information contained in this document represents components of the legal health record. It is not the complete legal health record.[facility]
--- OUTSIDE RECORDS SUMMARY | 2025-01-16 11:09 | XMS_ITS | Encounter Summary ---
Author Organization [facility] Address [address] [place] [address] Phone Care Team Providers Care Staff Cytotechnologist Name Role Phone Jl Hameed DO Primary Care Provider [phone] Encounter Details Date Type Department Care Team (Late st Contact Info) Description 04/14/2019 Transcribe Orders [facility] [address] [place] [address] Dawood Allred MD [address] [place] [address] Anemia, unspecified type (Primary Dx) Social History Tobacco Use Types [...] encounter Results * (ABNORMAL) CBC and differential (04/14/2019 12:12 PM EST) WBC 6.20 3.40 - 11.20 K/uL [facility] RBC 4.11 3.80 - 4.80 M/uL [facility] HGB 9.4(L) 12.0 - 15.0 g/dL [facility] HCT 31.9(L) 36.0 - 46.0 % [facility] PLT 343 130 - 400 K/uL [facility] MCV 77.6(L) 79.0 - 98.0 fL [facility] MCH 22.9(L) 27.0 - 34.8 pg [facility] MCHC 29.5(L) 31.5 - 36.0 g/dL [facility] RDW 15.9(H) 10.8 - 14.6 % [facility] MPV 10.2 9.4 - 12.4 fl [facility] NRBC 0.00 0.00 /100 WBCs [facility] ABSOLUTE NRBC 0.00 0.00 K/uL [facility] DIFF METHOD Auto [facility] NEUTS 70.2 45.30 - 77.70 % [facility] LYMPHS 16.9 12.30 - 39.70 % [facility] MONOS 10.8 4.10 - 12.80 % [facility] EOS 1.1 0 - 7.2 % [facility] BASOS 0.8 0 - 2.80 % [facility] Granulocytes, immature (%) 0.2 0.0 - 0.9 % [facility] ABSOLUTE NEUTS 4.35 1.40 - 7.70 K/uL [facility] ABSOLUTE LYMPHS 1.05 0.60 - 3.20 K/uL [facility] ABSOLUTE MONOS 0.67(H) 0.11 - 0.59 K/uL [facility] ABSOLUTE EOS 0.07 0.01 - 0.50 K/uL [facility] ABSOLUTE BASOS 0.05 0.00 - 0.08 K/uL [facility] Granulocytes, immature 0.01 0.00 - 0.05 K/uL [facility] Blood 04/14/2019 12:1 2 PM EST 04/14/2019 12:17 PM EST us Dawood Allred MD LAB BLOOD ORDERABLES Final Result [facility] [address] [place] [address] * (ABNORMAL) Iron and iron binding capacity (04/14/2019 12:12 PM EST) IRON 15(L) 30 - 160 ug/dL [facility] IRON BINDING CAPACITY 302 228 - 428 ug/dL [facility] TRANSFERRIN SATURAT. 5(L) 15 - 50 % [facility] Blood 04/14/2019 12:1 2 PM EST 04/14/2019 12:17 PM EST Dawood Allred MD LAB BLOOD ORDERABLES Final Result Performing Organization Address City/[facility] Co de Phone Number [address] [address] * Ferritin (04/14/2019 12:12 PM EST) FERRITIN 34 13 - 150 ug/L [facility] Blood 04/14/2019 12:1 2 PM EST 04/14/2019 12:17 PM EST Dawood Allred MD LAB BLOOD ORDERABLES Final Result Performing Organization Address [facility] de Phone Number [address] [address] documented in this encounter Visit Diagnoses Diagnosis Anemia, unspecified type- Primary documented in this encounter Care Teams Staff Cytotechnologist Relationship Specialty Start Date End Date Jl Hameed DO [email or web address] PCP - General 04/29/17 documented as of this encounter Additional Source Comments The information contained in this document represents components of the legal health record. It is not the complete legal health record.[facility]
--- OUTSIDE RECORDS SUMMARY | 2025-01-16 11:09 | XMS_ITS | Clinical Summary ---
Author Organization [facility] Address [address] [place] [id number] Phone Care Team Providers Care Security Guard Supervisor Name Role Phone Jl Hameed DO Primary Care Provider [phone] Allergies Active Allergy Reactions Criticality Noted Date Comments Gabapentin 11/14/2020 Levofloxacin 06/26/2014 Other reaction(s): Unknown Penicillins Rash 03/04/2007 Pregabalin 11/14/2020 Daiqtng-Wua-Qqo Reductase Inhibitors 11/14/2020 Medications celecoxib (CELEBREX) 200 MG capsule celecoxib 200 mg capsule Active ferrous sulfate 325 mg (65 mg [place] iron) tablet Iron (ferrous sulfate) 325 mg (65 mg iron) tablet Take 1 tablet twice a day by oral route. Active FLUoxetine (PROZAC) 20 MG capsule fluoxetine 20 mg capsule TAKE 1 CAPSULE BY MOUTH EVERY DAY Active latanoprost (XALATAN) 0.005 % ophthalmic solution latanoprost 0.005 % eye drops Instill 1 drop every day by ophthalmic route for 90 days. Active omeprazole (PRILOSEC) 40 MG capsule 1 capsule Active ondansetron (ZOFRAN) 4 MG tablet ondansetron HCl 4 mg tablet Active pramipexole (MIRAPEX) 1 MG tablet 3 tab(s) 0 Active sucralfate (CARAFATE) 1 gram tablet sucralfate 1 gram tablet TAKE 1 TABLET BY MOUTH TWICE DAILY ON AN EMPTY STOMACH Active SUMAtriptan (IMITREX) 100 MG tablet sumatriptan 100 mg tablet TAKE 1 TABLET AT ONSET OF MIGRAINE, MAY TAKE 1 EXTRA DOSE 2 HOURS LATER NEEDED Active Encounters Date Type Department Care Team Description 12/19/2024 9:56 AM EDT - 12/19/2024 11:59 PM EDT Hospital Encounter [facility] [address] [place] [id number] Sabrina Breen PA Discharge Disposition: Home or Self Care 12/19/2024 Transcribe Orders [facility] [address] [place] [address] Sabrina Breen PA Effusion of right knee (Primary Dx); Iron deficiency from Last 3 Months Immunizations Immunization Administration Dates Next Due COVID-19 (Pre-02/15) Moderna Vaccine, mRNA, PF 06/25/2020 INFLUENZA, SPLIT VIRUS, TRIV ALENT W/ PRESERVATIVE IM 03/14/2010 Influenza High-Dose Trivalen t Preservative Free IM 03/14/2018,02/05/2015 Influenza Quadrivalent w/ Preservative IM 2019,02/16/2018 Influenza Trivalent Adjuvant ed Preservative free IM 01/28/2019,02/18/2017,01/22/2016 Pneumococcal conjugate PCV13 02/24/2017 Pneumococcal polysaccharide PPSV23 06/24/2018, Tdap 03/23/2020 Zoster live 01/13/2019,11/04/2018 Social History Tobacco Use Types Packs/Day Years Used Date Smoking Tobacco: Former Smokeless Tobacco: Never Education Answer Date Recorded Are you interested in more education? Not on julian e 08/22/2022 Are you concerned about learning? Not on file 08/22/2022 No 08/22/2022 No 08/22/2022 Digital Access Answer Date Recorded No 09/15/2022 No 09/15/2022 Reliable internet access at home? Not on file 09/15/2022 Device with a working camera? Not on file Comments Unknown Sex and Gender Information Value Date Recorded Sex Assigned at Not on file Legal Sex Female 6:51 PM EST Gender Identity Not on file Sexual Orientation Not on file Last Filed Vital Signs Vital Sign Reading Time Taken Comments Blood Pressure 132/71 11/14/2020 9:51 AM EDT Pulse 78 11/14/2020 9:51 AM EDT Temperature 36.8 C (98.3 F) 11/14/2020 9:51 AM EDT Respiratory Rate - - Oxygen Saturation 99% 11/14/2020 9:51 AM EDT Inhaled Oxygen Concentration - - Weight 70.1 kg (154 lb 9.6 oz) 11/14/2020 9:51 A M EDT Height 165.1 cm (5' 5 ) 11/14/2020 9:51 AM EDT Body Mass Index 25.73 11/14/2020 9:51 AM EDT Plan of Treatment Health Maintenance Due Date Last Done Comments DEPRESSION SCREENING 1947 OSTEOPOROSIS SCREENING INITIAL (ONE-TIME) 11/11/2000 RSV VACCINE (1 - 1-dose 75+ series) 11/11/2010 ZOSTER VACCINES (2 of 3) 03/10/2019 01/13/2019, 10/24 INFLUENZA VACCINE (#1) 2024 , 04/14/2022, 04/07/2021, Additional history exists COVID-19 VACCINE ( season) 2024 09/12/2021, 04/07/2021, 06/25/2020 Adult Td,Tdap Booster 03/23/2030 03/23/2020 PNEUMOCOCCAL VACCINES (50+ years) Completed 06/24/2018, 02/24/2017, 08/19/2015 HEPATITIS A VACCINES Aged Out No long er eligible based on patient's age to complete this topic HIB VACCINES Aged Out No longer eligi ble based on patient's age to complete this topic MENINGOCOCCAL VACCINES (ACWY) Aged Out No longer eligible based on patient's age to complete this topic MENINGOCOCCAL VACCINES (B) Aged Out N o longer eligible based on patient's age to complete this topic Medical Devices Not on file Procedures Procedure Name Priority Date/Time Associated Diagnosis Comments Antinuclear antibody, titer and pattern Routine 12/19/2024 9:58 AM EDT URIC ACID Routine 12/19/2024 9:58 AM EDT Effusion of right knee Iron deficiency ANTINUCLEAR ANTIBODY (SAMMY) Routine 12/19/2024 9:58 AM EDT Effusion of right knee Iron deficiency RHEUMATOID FACTOR Routine 12/19/2024 9:5 8 AM EDT Effusion of right knee Iron deficiency SEDIMENTATION RATE (ESR) Routine 12/19/2024 9:58 AM EDT Effusion of right knee Iron deficiency C-REACTIVE PROTEIN Routine 12/19/2024 9: 58 AM EDT Effusion of right knee Iron deficiency CPK (CREATINE KINASE) Routine 12/19/2024 9:58 AM EDT Effusion of right knee Iron deficiency IRON AND IRON BINDING CAPACITY Routine 12/19/2024 9:58 AM EDT Effusion of right knee Iron deficiency CBC AND DIFFERENTIAL Routine 12/19/2024 9:58 AM EDT Effusion of right knee Iron deficiency from Last 3 Months Results * Antinuclear antibody, titer and pattern (12/19/2024 9:58 AM EDT) SAMMY TITER 1:80 Homogeneous OUTBOUND SALES SPECIALIST [facility] 12/19/2024 9:58 AM EDT 12/19/2024 10:01 AM EDT us Sabrina GLOVER LAB BLOOD ORDERABLES Final Result [address] [address] * (ABNORMAL) Iron and iron binding capacity (12/19/2024 9:58 AM EDT) IRON 23(L) 30 - 160 ug/dL [facility] IRON BINDING CAPACITY 226(L) 228 - 428 ug/dL [facility] TRANSFERRIN SATURAT. 10(L) 15 - 50 % [facility] Blood 12/19/2024 9:58 AM EDT 12/19/2024 10:01 AM EDT us Sabrina GLOVER LAB BLOOD ORDERABLES Final Result [address] [address] * (ABNORMAL) Sedimentation rate (ESR) (12/19/2024 9:58 AM EDT) ESR 76(H) 0 - 30 mm/h [facility] Blood 12/19/2024 9:58 AM EDT 12/19/2024 10:01 AM EDT Sabrina GLOVER LAB BLOOD ORDERABLES Final Result Performing Organization Address City/[facility]/ZIP Co de Phone Number [address] [address] * (ABNORMAL) CBC and differential (12/19/2024 9:58 AM EDT) WBC 4.38 4.00 - 11.00 K/uL [facility] RBC 3.77(L) 4.00 - 5.20 M/uL [facility] HGB 10.4(L) 12.0 - 16.0 g/dL [facility] HCT 34.6(L) 36.0 - 46.0 % [facility] PLT 310 150 - 450 K/uL [facility] MCV 91.8 80.0 - 100.0 fL [facility] MCH 27.6 27.0 - 31.0 pg [facility] MCHC 30.1(L) 32.0 - 36.0 g/dL [facility] RDW 14.6(H) 11.5 - 14.5 % [facility] MPV 10.4 8.4 - 12.0 fL [facility] NRBC 0.00 0.00 /100 WBCs [facility] ABSOLUTE NRBC 0.00 0.00 K/uL [facility] DIFF METHOD Auto [facility] NEUTS 70.4 48.0 - 76.0 % [facility] LYMPHS 16.9(L) 18.0 - 41.0 % [facility] MONOS 10.0 4.0 - 11.0 % [facility] EOS 1.8 0.0 - 5.0 % [facility] BASOS 0.7 0.0 - 1.5 % [facility] Granulocytes, immature (%) 0.2 0.0 - 0.9 % [facility] ABSOLUTE NEUTS 3.08 1.92 - 7.60 K/uL [facility] ABSOLUTE LYMPHS 0.74 0.72 - 4.10 K/uL [facility] ABSOLUTE MONOS 0.44 0.16 - 1.10 K/uL [facility] ABSOLUTE EOS 0.08 0.00 - 0.50 K/uL [facility] ABSOLUTE BASOS 0.03 0.00 - 0.15 K/uL [facility] Granulocytes, immature 0.01 0.00 - 0.09 K/uL [facility] Blood 12/19/2024 9:58 AM EDT 12/19/2024 10:01 AM EDT Sabrina GLOVER LAB BLOOD ORDERABLES Final Result [address] [address] * Rheumatoid factor (12/19/2024 9:58 AM EDT) Pathologist [facility] RHEUMATOID FACTOR <10.0 0.0 - 14.0 IU/ml [facility] Blood 12/19/2024 9:58 AM EDT 12/19/2024 10:01 AM EDT Sabrina GLOVER LAB BLOOD ORDERABLES Final Result [address] [address] * (ABNORMAL) C-Reactive Protein (12/19/2024 9:58 AM EDT) C REACTIVE PROTEIN 62.4(H) 0.0 - 4.0 mg/L [facility] Blood 12/19/2024 9:58 AM EDT 12/19/2024 10:01 AM EDT us Sabrina GLOVER LAB BLOOD ORDERABLES Final Result Performing Organization Address [facility] Co de Phone Number [address] [address] * (ABNORMAL) Antinuclear antibody (SAMMY) (12/19/2024 9:58 AM EDT) SAMMY SCREEN ON HEP 2 Positive(A ) Negative [facility] Comment:An SAMMY Titer has bee n reflexed. The results will follow. Blood 12/19/2024 9:58 AM EDT 12/19/2024 10:01 AM EDT us Sabrina GLOVER LAB BLOOD ORDERABLES Final Result Performing Organization Address [facility] de Phone Number [address] [address] * Uric acid (12/19/2024 9:58 AM EDT) URIC ACID 4.6 2.4 - 7.0 mg/dL [facility] Blood 12/19/2024 9:58 AM EDT 12/19/2024 10:01 AM EDT us Sabrina GLOVER LAB BLOOD ORDERABLES Final Result Performing Organization Address [facility]/ZIP Co de Phone Number [address] [address] * CPK (creatine kinase) (12/19/2024 9:58 AM EDT) CREATINE KINASE 33 21 - 215 U/L [facility] Blood 12/19/2024 9:58 AM EDT 12/19/2024 10:01 AM EDT us Sabrina GLOVER LAB BLOOD ORDERABLES Final Result [address] [address] from Last 3 Months Insurance MEDICARE PART A & B [employer] MEDEX SUPPLEMENT MEDICARE PART A & B [employer] MED[employer] SUPPLEMENT MEDICARE PART A & B [facility] MEDEX SUPPLEMENT MEDICARE PART A & B [employer] MEDEX SUPPLEMENT MEDICARE PART A & B [employer] MEDEX SUPPLEMENT MEDICARE PART A & B [employer] MEDEX SUPPLEMENT MEDICARE PART A & B [employer] SUPPLEMENT MEDICARE PART A & B [employer] SUPPLEMENT MEDICARE PART A & B [employer] MEDEX SUPPLEMENT Care Teams Security Guard Supervisor Relationship Specialty Start Date End Date Jl Hameed DO [email or web address] PCP - General 04/29/17 Additional Source Comments The information contained in this document represents components of the legal health record. It is not the complete legal health record.[facility]
[2025-01-16 13:41] LABS: MANUAL DIFF FLAG NO
[2025-01-16 13:48] LABS: Hematocrit 41.2 % (37.0-47.0); Hemoglobin 12.4 g/dl (12.0-16.0); Imm Gran Abs Auto 0.07 X10*3/uL (0.00-0.03); Imm Gran Pct Auto 0.8 % (0.0-0.4); Lymphocytes Absolute Auto 1.8 X10*3/uL (1.2-4.9); Mean Corpuscular HGB Conc 30.1 g/dl (31.0-35.0); Mean Corpuscular Hemoglobin 28.2 pg (27.0-33.0); Mean Corpuscular Volume 93.6 fL (80.0-98.0); NRBC Abs Auto 0.000 X10*3/uL (0.0-0.012); NRBC Pct Auto 0.0 /100WBC (0.0-0.2); Platelet Count 194 X10*3/uL (160-400); Red Blood Count 4.40 X10*6/uL (4.20-5.50); White Blood Count 8.7 X10*3/uL (4.8-10.8)
[2025-01-16 14:35] LABS: Uric Acid 4.5 mg/dL (2.4-5.7)
== END 2025-01-16 09:22 | disposition home or self-care (01) ==
LOC: HO.MANLDS 09:21
PROVIDERS: Visit Provider Physician Assistant
DX: M25.561 Pain in right knee (principal)
CPT/HCPCS: 36415; 84550; 85025; 85652; 86140

== ENCOUNTER 2025-02-18 17:50 | Inpatient (IN) | payer MEDICARE, SELFPAY ==
--- NOTE | ~2025-02-18 | XR_ITS ---
CLINICAL HISTORY: cp 2 view chest x-ray Comparison: CR/SC/SR - XR CHEST 2 VIEWS - 07/16/23 14:27 EDT Findings: Mild interstitial prominence in both lungs. Normal size heart. No acute fracture. IMPRESSION: 1. Mild interstitial prominence in both lungs may represent pulmonary vascular congestion /mild edema. This document has been electronically signed by: Harris Irene MD on 02/18/2025 20:04:50
--- NOTE | ~2025-02-18 | CT_ITS ---
CLINICAL HISTORY: SOB; Cough; Pleurisy; Abnl X-Ray CT angiography chest with contrast. 3D Postprocessing. Comparison: CR - XR CHEST 2V - 02/18/25 18:36 EDT Findings: Heart size is mildly enlarged. Unremarkable thoracic aorta and great vessels. No aneurysm. Enlarged main pulmonary artery, a finding that can be associated with pulmonary artery hypertension. Moderately large hiatal hernia. Numerous surgical clips in the right axilla. No consolidation or effusion. The visualized upper abdomen is unremarkable. No acute fractures. IMPRESSION: 1. No pulmonary embolus. This document has been electronically signed by: Valente Ellis MD on 02/19/2025 00:45:40
--- NOTE | 2025-02-18 17:53 | ECG_ITS ---
Test Reason : CHEST PAIN Blood Pressure : */* mmHG Vent. Rate : 90 BPM Atrial Rate : 90 BPM P-R Int : 172 ms QRS Dur : 78 ms QT Int : 358 ms P-R-T Axes : 17 -5 27 degrees QTcB Int : 437 ms Sinus rhythm with Premature atrial complexes Otherwise normal ECG When compared with ECG of 16-Jul-2023 14:54, Premature atrial complexes are now Present Referred By: Eloisa Urbina Electronically Signed By: FUNMILAYO PAYTON
--- NOTE | 2025-02-18 18:10 | ED_ITS ---
HPI - Chest Pain General Chief Complaint: Chest Pain Stated Complaint: chest pain Time Seen by Provider: 02/18/25 20:26 Source: patient Mode of arrival: ambulatory Limitations: no limitations History of Present Illness ED Provider: Darius GLOVER HPI narrative: The patient is an 89-year-old female with a history of iron-deficiency anemia, recurrent UTIs currently treated with prophylactic Keflex, chronic bilateral knee pain, and remote history of breast cancer, presenting to the ED for evaluation of new onset weight gain, extremity swelling, chest pain, cough, and shortness of breath. The patient reports she has recently gained about 10-12 lb, and reports since Wednesday she has been experiencing intermittent left- sided chest pain which was worse with movement. Patient reports associated mildly painful cough, intermittently productive of yellowish clear sputum. The patient denies overt shortness of breath but does report intermittent palpitations and general malaise. The patient also reports on Wednesday she experienced a subjective fever with chills but did not check her temperature. The patient denies any associated vomiting, diarrhea, abdominal pain, headache, dizziness, near-syncope, syncope, dysuria, hematuria, hematochezia, melena, diarrhea, or constipation. The patient denies any known sick contacts, denies any recent falls or other trauma. The patient reports she was recently treated with a 28 day course of prednisone for bilateral knee pain, stopped the prednisone approximately 2-3 weeks ago. Related Data Home Medications ?Medication ?Instructions ?Recorded ?Confirmed fluoxetine 20 mg capsule 1 cap PO BEDTIME 04/04/20 latanoprost 0.005 % eye drops 1 drp ophthalmic (eye) B EDTIME 04/04/20 01/17/24 sumatriptan succinate 100 mg tablet 1 tab PO DAILY MRX 1 PRN Migraine 04/04/20 01/17/24 Headache ferrous sulfate 325 mg (65 mg 325 mg PO BID 07/02/20 0 01/17/24 iron) tablet (iron) multivitamin 1 tab PO BEDTIME 12/12/22 ferrous sulfate 325 mg (65 mg 325 mg PO DAILY 10/27/23 01/17/24 iron) tablet (FeroSul) Previous Rx's ?Medication ?Instructions ?Recorded omeprazole 20 mg capsule,delayed 20 mg PO BID@0630,163 0 #60 caps 12/17/22 release cephalexin 500 mg capsule 500 mg PO DAILY 90 days #90 caps 04/24/24 methenamine hippurate 1 gram tablet 1 g PO DAILY 90 da ys #90 tabs 04/24/24 Allergies Allergy/AdvReac Type Severity Reaction Status Date / Time sulfamethoxazole (From Allergy Severe rash/itchin Verified 02/18/25 18:14 Bactrim) g trimethoprim (From Bactrim) Allergy Severe rash/itchin Verified 02/18/25 18:14 g Penicillins Allergy Mild RASH Verified 02/18/25 18:14 pregabalin (From Lyrica) Allergy Mild Rash Verified 02/18/25 18:14 Rqwrmmn-OXI-UeI Reductase Allergy Mild RASH Verified 02/18/25 18:14 Inhibitor (Statins: Hmg-Coa Reductase Inhibito) levofloxacin (From LEVAQUIN) Allergy Unknown RED RASH Verified 02/18/25 18:14 gabapentin Allergy Unknown Verified 02/18/25 18:14 Review of Systems 2 Review of Systems: Yes all other systems are reviewed and are negative PMFSH Past Medical History Medical History Recurrent UTI Iron deficiency anemia Chronic upper gastrointestinal bleeding Migraine Acute anemia Cataracts, bilateral FH: total knee replacement Cholecystectomy planned Diverticulitis Hx of breast cancer Iron deficiency anemia Surgical History History of colostomy reversal H/O total knee replacement H/O colonoscopy Cataract Family History Family History Sister Breast cancer Diabetes Mother Diabetes Social History Social History Household Members: Children Household Members Other:: 3 Housing: House Are you a primary career technical education teacher to a significant other at home: No Do you presently have visiting nurse or other home services: No Alcohol intake: never Comment: Pt low fall risk Patient Tobacco Use Status: Former Tobacco user Smoked in Last 30 Days: No Use of substances other than those prescribed or required for medical reasons: No Advance Directives: Yes Advance Directives Information Provided: No Advance Directives on File: No service: No Current occupational status: retired Physical Exam 2 Vital Signs: Vital Signs: Last Vital Signs Temp 98.7 F 02/19/25 01:08 Pulse 86 02/19/25 01:08 Resp 17 02/19/25 01:08 BP 150/75 H 02/19/25 01:08 Pulse Ox 100 02/19/25 01:08 O2 Del Method Room Air 02/19/25 01:08 BMI result Body Mass Index 25.7 CONSTITUTIONAL: The patient appears non-toxic, well nourished and in no acute distress. Vital signs as documented. HEAD: Atraumatic, normocephalic. EYES: EOMs grossly intact, pupils equal, conjunctiva clear, no exudate. ENT: Nares patent, no discharge. Airway patent, no audible stridor, visible mucosa is pink and moist without noted lesions. NECK: Trachea is midline, no obvious masses or gross abnormalities. CHEST: Symmetric movement, normal appearance. LUNGS: LS present and CTAB, no w/r/r. Non-labored work of breathing. CARDIAC: Irregular Rhythm, S1/S2 appreciated, no murmurs, rubs or gallops. ABDOMEN: Abdomen soft and non-tender x4 quadrants, no palpable masses or organomegaly. : Deferred. EXTREMITIES: Normal tone, moves all extremities spontaneously without reported pain. No obvious acute injury or deformity noted. NEURO: Alert and oriented x3, CN II-XII appear grossly intact. Cerebellar Functioning grossly intact. No obvious sensory or motor deficits. Speech clear and appropriate. PSYCH: normal affect, appropriate eye contact, fluid speech, with appropriate response to questioning. No reported suicidality or homicidality. SKIN: Warm, dry, color appropriate, normal turgor. No rashes noted. Course Course Course Narrative: Eloisa Palaciosmanuel ASSISTANT TO THE PRESIDENT 02/18 1811 This is a rapid medical exam. Deferred additional HPI, ROS, PE to primary provider. 89 yo PMH of breast cancer s/p lumpectomy and chemo radiation, Fe deficiency anemia, mood disorder, GERD, migraines, pelvic mass s/p BSO here with complaints of 12lb weight gain in one month, had chest pain a few days ago if she exerts herself. Recently finished prednisone. Will obtain labs, EKG, CXR VSS Medications Administered Discontinued Medications Generic Name Dose Route Start Last Admin Trade Name Freq PRN Reason Stop Dose Admin Iohexol 65 ml 02/18/25 22:34 02/18/25 22:45 Iohexol 350 Mg/Ml 100 Ml Infus..Btl IV 02/18/25 22:35 65 ml ONCE ONE Administration Medical Decision Making Medical Decision Making MDM Narrative: 10:07 PM 02/18/2025 (Angie GLOVER): The patient is an 89-year-old female with a history of iron-deficiency anemia, recurrent UTIs currently treated with prophylactic Keflex, chronic bilateral knee pain, and remote history of breast cancer, presenting to the ED for evaluation of new onset weight gain, extremity swelling, chest pain, cough, and shortness of breath. The patient reports she has recently gained about 10-12 lb, and reports since Wednesday she has been experiencing intermittent left-sided chest pain which was worse with movement. Patient reports associated mildly painful cough, intermittently productive of yellowish clear sputum. The patient also reports generalized malaise and intermittent palpitations. The patient also reports on Wednesday she experienced a subjective fever with chills but did not check her temperature. The patient denies any associated vomiting, diarrhea, abdominal pain, headache, dizziness, near-syncope, syncope, dysuria, hematuria, hematochezia, melena, diarrhea, or constipation. The patient denies any known sick contacts, denies any recent falls or other trauma. The patient reports she was recently treated with a 28 day course of prednisone for bilateral knee pain, stopped the prednisone approximately 2-3 weeks ago. The patient's exam reveals irregular heart rate without murmur, EKG reveals frequent PACs, no PVCs or evidence of AFib. No ST elevation, no Q-waves or other indication of missed FL. Troponin is negative x2. Remainder of exam is reassuring, no pitting edema, abdominal tenderness, or adventitious lung sounds. The patient's chest x-ray shows bilateral mild pulmonary vascular congestion, no focal consolidation identified. The patient's laboratory evaluation demonstrates no leukocytosis, significant anemia, or significant electrolyte abnormality, patient is renal function is mildly impaired with BUN of 30. The patient's BNP is elevated at 3500. The patient denies any history of CHF, does not take any diuretics. The exact cause of the patient's symptoms is not entirely clear, given the patient's report of pleuritic chest pain, cough, and shortness of breath, history of breast CA, and the patient's elevated BNP, we will obtain CTA chest to evaluate for fluid versus consolidation versus PE versus mass. If CTA is nondiagnostic, we will consider admission versus discharge for inpatient versus outpatient cardiac workup to further evaluate apparent new onset CHF. 12:55 AM 02/19/2025 (Angie GLOVER): The patient's CT shows no evidence of PE, consolidation, or effusion. The patient's heart however is mildly enlarged and there is enlargement of the main pulmonary artery, possibly concern for pulmonary artery hypertension. Seeing as the patient has had no previous history of pulmonary hypertension, CHF, or other cardiac pathology, and lack of established body designer, we will recommend admission for additional evaluation and management of new onset pulmonary hypertension and CHF. Admission/Observation Consideration of admission/observation: Escalation of care including admission/observation considered Lab Data MDM Lab Attestation statement: I reviewed the patient's lab results. 02/18/25 18:07 02/18/25 18:07 Labs: Lab Results 02/18/25 02/18/25 Range/Units 18:07 20:19 WBC 5.2 (4.8-10.8) X10*3/uL RBC 4.06 L (4.20-5.50) X10*6/uL Hgb 11.5 L (12.0-16.0) g/dl Hct 37.0 (37.0-47.0) % MCV 91.1 (80.0-98.0) fL MCH 28.3 (27.0-33.0) pg MCHC 31.1 (31.0-35.0) g/dl RDW 14.8 (11.0-16.0) % Plt Count 431 H D (160-400) X10*3/uL MPV 9.9 (9.4-12.3) fL Immature Gran % (Auto) 0.4 (0.0-0.4) % Neut % (Auto) 63.9 (45-73) % Lymph % (Auto) 24.8 (20-40) % Steele % (Auto) 8.8 (2-11) % Eos % (Auto) 1.5 (0-4) % Baso % (Auto) 0.6 (0-2) % Lymph # (Auto) 1.3 (1.2-4.9) X10*3/uL Steele # (Auto) 0.5 (0.1-1.2) X10*3/uL Eos # (Auto) 0.1 (0.0-0.4) X10*3/uL Baso # (Auto) 0.0 (0.0-0.2) X10*3/uL Abs Immat Gran (auto) 0.02 (0.00-0.03) X10*3/uL Absolute Neuts (auto) 3.4 (2.0-8.3) x10*3/uL Absolute Nucleated RBC 0.000 (0.0-0.012) X10*3/uL Nucleated RBC % (auto) 0.0 (0.0-0.2) /100WBC Sodium 139 (135-145) mmol/L Potassium 4.3 (3.3-5.1) mmol/L Chloride 110 H (96-108) mmol/L Carbon Dioxide 19 L (22-29) mmol/L Anion Gap 14 (12-20) BUN 30 H (9-16) mg/dL Creatinine 1.21 (0.5-1.4) mg/dL Estim Creat Clear Calc 30.9 Estimated GFR 42 Random Glucose 123 H (60-115) mg/dL Calcium 9.5 (8.4-10.2) mg/dL Total Bilirubin 0.1 (0.0-1.0) mg/dL Direct Bilirubin < 0.2 (0.0-0.5) mg/dL AST 18 (5-31) U/L ALT < 6 (0-31) U/L Alkaline Phosphatase 87 (39-117) U/L Troponin I High Sens 4.3 D 3.7 (<3.5-17.0) ng/L NT-Pro-B Natriuret Pep 3487.4 H (<300) pg/mL Total Protein 7.0 (6.5-8.0) g/dL Albumin 3.7 (3.5-5.0) g/dL Independent Interpretation I performed an independent interpretation of an: EKG (EKG shows sinus rhythm with frequent PACs, no evidence of acute ischemia, no ST elevation, no Q-waves, no other ectopy. QTC 437. Compared to previous on 07/16/2023, PACs are new. ) Radiology Impression Discussion of test interpretation with radiology: I have reviewed the radiologist's reading. Radiologist Impression: 2 view chest x-ray Comparison: CR/OH/SR - XR CHEST 2 VIEWS - 07/16/23 14:27 EDT Findings: Mild interstitial prominence in both lungs. Normal size heart. No acute fracture. IMPRESSION: 1. Mild interstitial prominence in both lungs may represent pulmonary vascular congestion /mild edema. This document has been electronically signed by: Harris Irene MD on 02/18/2025 20:04:50 CT angiography chest with contrast. 3D Postprocessing. Comparison: CR - XR CHEST 2V - 02/18/25 18:36 EDT Findings: Heart size is mildly enlarged. Unremarkable thoracic aorta and great vessels. No aneurysm. Enlarged main pulmonary artery, a finding that can be associated with pulmonary artery hypertension. Moderately large hiatal hernia. Numerous surgical clips in the right axilla. No consolidation or effusion. The visualized upper abdomen is unremarkable. No acute fractures. IMPRESSION: 1. No pulmonary embolus. This document has been electronically signed by: Valente Ellis MD on 02/19/2025 00:45:40 External Record Review External record reviewed: Outpatient record and Prior outpatient labs Discharge Plan Discharge Clinical Impression: Chest pain, Pulmonary hypertension Patient Disposition: Admitted As Inpatient Print Language: Bulgarian
[2025-02-18 18:11] VITALS: BP 139/85; PULSE 77; RESP 18; TEMP 36.4; O2SAT 98; BMI 25.7
[2025-02-18 18:13] LABS: MANUAL DIFF FLAG NO
[2025-02-18 18:15] LABS: Hematocrit 37.0 % (37.0-47.0); Hemoglobin 11.5 g/dl (12.0-16.0); Imm Gran Abs Auto 0.02 X10*3/uL (0.00-0.03); Imm Gran Pct Auto 0.4 % (0.0-0.4); Lymphocytes Absolute Auto 1.3 X10*3/uL (1.2-4.9); Mean Corpuscular HGB Conc 31.1 g/dl (31.0-35.0); Mean Corpuscular Hemoglobin 28.3 pg (27.0-33.0); Mean Corpuscular Volume 91.1 fL (80.0-98.0); NRBC Abs Auto 0.000 X10*3/uL (0.0-0.012); NRBC Pct Auto 0.0 /100WBC (0.0-0.2); Platelet Count 431 X10*3/uL (160-400); Red Blood Count 4.06 X10*6/uL (4.20-5.50); White Blood Count 5.2 X10*3/uL (4.8-10.8)
[2025-02-18 18:28] LABS: Alanine Aminotransferase < 6 U/L (0-31); Albumin Level 3.7 g/dL (3.5-5.0); Alkaline Phosphatase 87 U/L (39-117); Anion Gap 14 (12-20); Aspartate Amino Transferase 18 U/L (5-31); Blood Urea Nitrogen 30 mg/dL (9-16); Calcium 9.5 mg/dL (8.4-10.2); Carbon Dioxide 19 mmol/L (22-29); Chloride 110 mmol/L (96-108); Creatinine Clr Calc Pharmacy 30.9; Estimated Glomerular Filt Rate 42; Potassium 4.3 mmol/L (3.3-5.1); Sodium 139 mmol/L (135-145); Total Protein 7.0 g/dL (6.5-8.0)
[2025-02-18 18:41] LABS: Troponin-I High Sensitivity 4.3 ng/L (<3.5-17.0)
[2025-02-18 19:17] LABS: NT Pro B Type Natriuretic Pept 3487.4 pg/mL (<300)
--- OUTSIDE RECORDS SUMMARY | 2025-02-18 19:51 | XMS_ITS | Encounter Summary ---
Author Organization [facility] Address [address] [place] [address] Phone Care Team Providers Care Hotel Administrative Assistant Name Role Phone Jl Hameed DO Primary Care Provider [phone] Encounter Details Date Type Department Care Team (Late st Contact Info) Description 10/02/2019 Transcribe Orders [facility] [address] [place] [phone] Dawood Allred MD [address] [place] [address] Iron deficiency anemia secondary to blood loss [...] EDT) WBC 4.20 4.00 - 11.00 K/uL [facility] Comment:Note Reference Range updates to all CBC and Differential results. RBC 4.28 3.72 - 5.30 M/uL [facility] HGB 10.3(L) 11.4 - 15.9 g/dL [facility] Comment:Note updated Referen ce Ranges for all CBC and Differential results. HCT 33.9(L) 34.2 - 46.8 % [facility] PLT 335 140 - 430 K/uL [facility] MCV 79.2 78.0 - 97.0 fL [facility] MCH 24.1(L) 25.0 - 33.0 pg [facility] MCHC 30.4(L) 32.0 - 36.0 g/dL [facility] RDW 17.7(H) 11.0 - 16.0 % [facility] MPV 10.8 8.4 - 12.8 fl [facility] NRBC 0.00 0 /100 WBCs [facility] ABSOLUTE NRBC 0.00 0 K/uL [facility] DIFF METHOD Auto [facility] NEUTS 58.1 43.0 - 75.0 % [facility] LYMPHS 26.0 18.2 - 47.4 % [facility] MONOS 10.0 4.00 - 11.00 % [facility] EOS 4.5 0.0 - 8.0 % [facility] BASOS 1.2 0.0 - 2.0 % [facility] Granulocytes, immature (%) 0.2 0.0 - 0.9 % [facility] ABSOLUTE NEUTS 2.44 1.80 - 7.70 K/uL [facility] ABSOLUTE LYMPHS 1.09 1.00 - 3.10 K/uL [facility] ABSOLUTE MONOS 0.42 0.20 - 0.80 K/uL [facility] ABSOLUTE EOS 0.19 0.00 - 0.80 K/uL [facility] ABSOLUTE BASOS 0.05 0.00 - 0.09 K/uL [facility] Granulocytes, immature 0.01 0.00 - 0.05 K/uL [facility] Blood 10/02/2019 11:0 9 AM EDT 10/02/2019 11:23 AM EDT us Dawood Allred MD LAB BLOOD ORDERABLES Final Result [facility] [address] [place] [address] * Ferritin (10/02/2019 11:09 AM EDT) FERRITIN 36 13 - 150 ug/L [facility] Blood 10/02/2019 11:0 9 AM EDT 10/02/2019 11:23 AM EDT us Dawood Allred MD LAB BLOOD ORDERABLES Final Result Performing Organization Address [facility]/ZIP Co de Phone Number [address] [address] * (ABNORMAL) Iron and iron binding capacity (10/02/2019 11:09 AM EDT) IRON 32 30 - 160 ug/dL [facility] IRON BINDING CAPACITY 343 228 - 428 ug/dL [facility] TRANSFERRIN SATURAT. 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 It is not the complete legal health record.[facility]
--- OUTSIDE RECORDS SUMMARY | 2025-02-18 19:51 | XMS_ITS | Clinical Summary ---
Author Organization [facility] Address [address] [place] [phone] Phone Care Team Providers Care Front Window Cashier Name Role Phone Jl Hameed DO Primary Care Provider [phone] Allergies Active Allergy Reactions Criticality Noted Date Comments Gabapentin 11/14/2020 Levofloxacin 06/26/2014 Other reaction(s): Unknown Penicillins Rash 03/04/2007 Pregabalin 11/14/2020 Eekanbb-Hlx-Ojn Reductase Inhibitors 11/14/2020 Medications celecoxib (CELEBREX) 200 MG capsule celecoxib 200 mg capsule Active ferrous sulfate 325 mg (65 mg cachil dehe iron) tablet Iron (ferrous sulfate) 325 mg [...] - 12/19/2024 11:59 PM EDT Hospital Encounter [facility] [address] [place] [phone] Sabrina Breen PA Discharge Disposition: Home or Self Care 12/19/2024 Transcribe Orders [facility] [address] [place] [address] Sabrina Breen PA Effusion of right knee [...] 9:58 AM EDT) SAMMY TITER 1:80 Homogeneous [facility] 12/19/2024 9:58 AM EDT 12/19/2024 10:01 AM EDT us Sabrina GLOVER LAB BLOOD ORDERABLES Final Result [address] [address] * (ABNORMAL) Iron and iron binding capacity (12/19/2024 9:58 AM EDT) IRON 23(L) 30 - 160 ug/dL [facility] IRON BINDING CAPACITY 226(L) 228 - 428 ug/dL [facility] TRANSFERRIN SATURAT. 10(L) 15 - 50 % [facility] Blood 12/19/2024 9:58 AM EDT 12/19/2024 10:01 AM EDT us Sabrina GLOVER LAB BLOOD ORDERABLES Final Result [address] [address] * (ABNORMAL) Sedimentation rate (ESR) (12/19/2024 9:58 AM EDT) ESR 76(H) 0 - 30 mm/h [facility] Blood 12/19/2024 9:58 AM EDT 12/19/2024 10:01 AM EDT Sabrina GLOVER LAB BLOOD ORDERABLES Final Result Performing Organization Address City/[facility]/ZIP Co de Phone Number [address] [address] * (ABNORMAL) CBC and differential (12/19/2024 9:58 AM EDT) WBC 4.38 4.00 - 11.00 K/uL [facility] RBC 3.77(L) 4.00 - 5.20 M/uL [facility] HGB 10.4(L) 12.0 - 16.0 g/dL [facility] HCT 34.6(L) 36.0 - 46.0 % [facility] PLT 310 150 - 450 K/uL [facility] MCV 91.8 80.0 - 100.0 fL [facility] MCH 27.6 27.0 - 31.0 pg [facility] MCHC 30.1(L) 32.0 - 36.0 g/dL [facility] RDW 14.6(H) 11.5 - 14.5 % [facility] MPV 10.4 8.4 - 12.0 fL [facility] NRBC 0.00 0.00 /100 WBCs [facility] ABSOLUTE NRBC 0.00 0.00 K/uL [facility] DIFF METHOD Auto [facility] NEUTS 70.4 48.0 - 76.0 % [facility] LYMPHS 16.9(L) 18.0 - 41.0 % [facility] MONOS 10.0 4.0 - 11.0 % [facility] EOS 1.8 0.0 - 5.0 % [facility] BASOS 0.7 0.0 - 1.5 % [facility] Granulocytes, immature (%) 0.2 0.0 - 0.9 % [facility] ABSOLUTE NEUTS 3.08 1.92 - 7.60 K/uL [facility] ABSOLUTE LYMPHS 0.74 0.72 - 4.10 K/uL [facility] ABSOLUTE MONOS 0.44 0.16 - 1.10 K/uL [facility] ABSOLUTE EOS 0.08 0.00 - 0.50 K/uL [facility] ABSOLUTE BASOS 0.03 0.00 - 0.15 K/uL [facility] Granulocytes, immature 0.01 0.00 - 0.09 K/uL [facility] Blood 12/19/2024 9:58 AM EDT 12/19/2024 10:01 AM EDT Sabrina GLOVER LAB BLOOD ORDERABLES Final Result [address] [address] * Rheumatoid factor (12/19/2024 9:58 AM EDT) Pathologist [facility] RHEUMATOID FACTOR <10.0 0.0 - 14.0 IU/ml [facility] Blood 12/19/2024 9:58 AM EDT 12/19/2024 10:01 AM EDT Sabrina GLOVER LAB BLOOD ORDERABLES Final Result [address] [address] * (ABNORMAL) C-Reactive Protein (12/19/2024 9:58 AM EDT) C REACTIVE PROTEIN 62.4(H) 0.0 - 4.0 mg/L [facility] Blood 12/19/2024 9:58 AM EDT 12/19/2024 10:01 AM EDT us Sabrina GLOVER LAB BLOOD ORDERABLES Final Result Performing Organization Address [facility] Co de Phone Number [address] [address] * (ABNORMAL) Antinuclear antibody (SAMMY) (12/19/2024 9:58 AM EDT) SAMMY SCREEN ON HEP 2 Positive(A ) Negative [facility] Comment:An SAMMY Titer has bee n reflexed. The results will follow. Blood 12/19/2024 9:58 AM EDT 12/19/2024 10:01 AM EDT us Sabrina GLOVER LAB BLOOD ORDERABLES Final Result Performing Organization Address [facility] de Phone Number [address] [address] * Uric acid (12/19/2024 9:58 AM EDT) URIC ACID 4.6 2.4 - 7.0 mg/dL [facility] Blood 12/19/2024 9:58 AM EDT 12/19/2024 10:01 AM EDT us Sabrina GLOVER LAB BLOOD ORDERABLES Final Result Performing Organization Address [facility]/ZIP Co de Phone Number [address] [address] * CPK (creatine kinase) (12/19/2024 9:58 AM EDT) CREATINE KINASE 33 21 - 215 U/L [facility] Blood 12/19/2024 9:58 AM EDT 12/19/2024 10:01 AM EDT us Sabrina GLOVER LAB BLOOD ORDERABLES Final Result [address] [address] from Last 3 Months Insurance MEDICARE PART A & B [employer] MEDEX SUPPLEMENT MEDICARE PART A & B [employer] MEDEX SUPPLEMENT MEDICARE PART A & B [facility] MEDEX SUPPLEMENT MEDICARE PART A & B Hiri [employer]OSS MEDEX SUPPLEMENT MEDICARE PART A & B [employer] MEDEX SUPPLEMENT MEDICARE PART A & B [employer] MEDEX SUPPLEMENT MEDICARE PART A & B [employer] MEDEX SUPPLEMENT MEDICARE PART A & B [employer] MEDEX SUPPLEMENT MEDICARE PART A & B [employer] MEDEX SUPPLEMENT Care Teams Front Window Cashier Relationship Specialty Start Date End Date Jl Hameed DO [email or web address] PCP - General 04/29/17 Additional Source Comments The information contained in this document represents components of the legal health record. It is not the complete legal health record.[facility]
--- OUTSIDE RECORDS SUMMARY | 2025-02-18 19:51 | XMS_ITS | Encounter Summary ---
Author Organization [facility] Address [address] [place] [address] Phone Care Team Providers Care Polymer Materials Consultant Name Role Phone Jl Hameed DO Primary Care Provider [phone] Encounter Details Date Type Department Care Team (Late st Contact Info) Description 04/14/2019 Transcribe Orders [facility] [address] [place] [phone] Dawood Allred MD [address] [place] [address] Anemia, unspecified type (Primary Dx) Social History [...] EST) WBC 6.20 3.40 - 11.20 K/uL [facility] RBC 4.11 3.80 - 4.80 M/uL [facility] HGB 9.4(L) 12.0 - 15.0 g/dL [facility] HCT 31.9(L) 36.0 - 46.0 % [facility] PLT 343 130 - 400 K/uL [facility] MCV 77.6(L) 79.0 - 98.0 fL [facility] MCH 22.9(L) 27.0 - 34.8 pg [facility] MCHC 29.5(L) 31.5 - 36.0 g/dL [facility] RDW 15.9(H) 10.8 - 14.6 % [facility] MPV 10.2 9.4 - 12.4 fl [facility] NRBC 0.00 0.00 /100 WBCs [facility] ABSOLUTE NRBC 0.00 0.00 K/uL [facility] DIFF METHOD Auto [facility] NEUTS 70.2 45.30 - 77.70 % [facility] LYMPHS 16.9 12.30 - 39.70 % [facility] MONOS 10.8 4.10 - 12.80 % [facility] EOS 1.1 0 - 7.2 % [facility] BASOS 0.8 0 - 2.80 % [facility] Granulocytes, immature (%) 0.2 0.0 - 0.9 % [facility] ABSOLUTE NEUTS 4.35 1.40 - 7.70 K/uL [facility] ABSOLUTE LYMPHS 1.05 0.60 - 3.20 K/uL [facility] ABSOLUTE MONOS 0.67(H) 0.11 - 0.59 K/uL [facility] ABSOLUTE EOS 0.07 0.01 - 0.50 K/uL [facility] ABSOLUTE BASOS 0.05 0.00 - 0.08 K/uL [facility] Granulocytes, immature 0.01 0.00 - 0.05 K/uL [facility] Blood 04/14/2019 12:1 2 PM EST 04/14/2019 12:17 PM EST us Dawood Allred MD LAB BLOOD ORDERABLES Final Result [facility] [address] [place] [address] * (ABNORMAL) Iron and iron binding capacity (04/14/2019 12:12 PM EST) IRON 15(L) 30 - 160 ug/dL [facility] IRON BINDING CAPACITY 302 228 - 428 ug/dL [facility] TRANSFERRIN SATURAT. 5(L) 15 - 50 % [facility] Blood 04/14/2019 12:1 2 PM EST 04/14/2019 12:17 PM EST Dawood Allred MD LAB BLOOD ORDERABLES Final Result Performing Organization Address City/[facility] Co de Phone Number [address] [address] * Ferritin (04/14/2019 12:12 PM EST) FERRITIN 34 13 - 150 ug/L [facility] Blood 04/14/2019 12:1 2 PM EST 04/14/2019 12:17 PM EST Dawood Allred MD LAB BLOOD ORDERABLES Final Result Performing Organization Address [facility] de Phone Number [address] [address] documented in this encounter Visit Diagnoses Diagnosis Anemia, unspecified type- Primary documented in this encounter Care Teams Polymer Materials Consultant Relationship Specialty Start Date End Date Jl Hameed DO [email or web address] PCP - General 04/29/17 documented as of this encounter Additional Source Comments The information contained in this document represents components of the legal health record. It is not the complete legal health record.[facility]
--- OUTSIDE RECORDS SUMMARY | 2025-02-18 19:51 | XMS_ITS | Data Portability ---
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 Lab iron + TIBC + ferritin, serum 2024 025 [facility], [address] [place] [address], [address], 5 15:13:38 CBC w/ auto diff 2024 025 [facility], [address] [place] [address], [place], [address], 5 15:13:38 uric acid, serum or plasma 2024 025 [facility], [address] [place] [address], [address], 5 15:13:38 SAMMY + rf (antinucle ar antibodies + rheumatoid factor), quantitati ve, serum 2024 [facility], [address] [place] [address], [address], 5 15:05:33 ESR (erythrocy te sedimentat ion rate), blood 2024 [facility], [address] [place] [address], [address], 5 15:13:38 C reactive protein, QN, serum or plasma 2024 [facility], [address] [place] [address], [address], 5 15:13:38 CK (creatine kinase), total, serum 2024 025 [facility], [address] [place] [address], [address], 5 15:13:38 CBC 2024 025 [facility], [address] [place] [address], [address], 5 11:41:17 iron + TIBC + ferritin, serum 2024 025 [facility], [address] [place] [address], [address], 5 11:41:17 lipid panel, blood 2023 024 [facility], [address] [place] [address], [address], 5 13:35:18 CBC w/ auto diff 2023 024 [facility], [address] [place] [address], [address], 13:35:18 CMP, serum or plasma 2023 024 [facility], [address] [place] [address], [address], 5 13:35:18 Referral None recorded. Procedures None recorded. Surgeries None recorded. Imaging XR, knee, 3 view 2024 [facility] (Imaging), [address] [place] [address], [address], 16:01:33 Medication Orders meloxicam 7.5 mg tablet 2024 [id number], [address], [place], [id number], 15:47:29 Patient TargetsNo targets recorded. Patient Instructions Encounter Date Encounter Id Patient Instructions Last Modified By Organization Details Last Modified Time 12/20/2023 [id number] polymyalgia rheumatica: care instructions Not available 12/20/2023 14:20:50 anemia: care instructions Not available 12/20/2023 14:20:50 iron deficiency anemia: care instructions Not available 12/20/2023 14:20:50 03/27/2024 [id number] advance care planning: care instructions Not available 03/27/2024 14:40:47 Discussed and explained advance directives such as standard forms to the . Face to face discussion lasted for a duration of ___ minutes. [email or web address] Not available 03/22/2024 10:07:08 10/06/2024 [id number] managing nausea from cancer treatment: care instructions Not available 10/06/2024 15:51:37 anemia: care instructions Not available 10/06/2024 15:51:37 Reason for Referral None Reported. Results Created Date Observation Date Name Description Value Unit Range Abnormal Flag Note LastModifiedBy Organization Detail LastModifiedTime 12/29/19 24 12/15/2023 imagi ng/di agnos tic resul t No observ ation record ed. [email or web address] [address] [place], [address], 12/29/2023 15:03:51 09/06/19 25 09/05/2024 XR, knee, 3 view No observ ation record ed. [email or web address] [place] [address] (Medical Records) [address] [place], [address], 09/06/2024 13:43:52 Result Notes None recorded. Problems Name Problem SNOMED Code Status Onset Date Resolution Date Notes Provider Name and Address Organization Details Recorded Time Disorder of breast 96925414 Active 2017 Cancer , lymph nodes taken out, Chemo/ Radiat ion Vero shen [facility] 8 12:25:35 Migraine 38733843 Active 2017 Vero shen [facility] 8 12:26:02 Gastroeso phageal reflux disease 192696369 Active 2017 Vero shen [facility] 8 12:26:10 Restless legs syndrome 46739108 Active 2017 Vero shen [facility] 8 12:26:28 Hyperlipi demia 55551493 Active 2017 Vero shen [facility] 8 12:26:54 Dizziness 990494796 Active 2017 Jl Hameed DO [address] [place] [address], [address], [facility] 8 14:10:15 Diverticu losis of sigmoid colon 268484526 Active 2018 Jl Hameed DO [address] [place] [address], [address], [place] [facility] 9 15:05:26 Iron deficienc y anemia 82106217 Active 2018 Jl Hameed DO [address] [place] [address], [address], [facility] 5 23:18:53 Bilateral osteoarth ritis of knees 732766269261 107 Active 2019 Jl Hameed DO [address] [place] [address], [address], [facility] 0 13:44:31 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 Jl Hameed DO [address] [place] [address], [address], [facility] 0 14:54:51 Closed fracture of malar AND/OR maxillary bones 47471072 Active 2019 Jl Hameed DO [address] [place] [address], [address], [facility] 0 14:56:18 Polymyalg ia rheumatic a 56219009 Active 2021 Jl Hameed DO [address] [place] [address], [address], [facility] 2 13:37:53 Myalgia/m yositis - multiple 000524464 Active 2021 BELEN BEGUM [address] [place] [address], [address], [facility] 2 15:33:50 Tremor 62719971 Active 2022 Jl Hameed DO [address] [place] [address], [address], [facility] 3 15:17:14 Acute urinary tract infection 679867807 Active 2022 Jl Hameed DO [address] [place] [address], [address], [facility] 3 11:26:31 Stomach cramps 14392011 Active 2022 Jl Hameed DO [address] [place] [address], [address], [facility] 3 09:36:53 Atrial tachycard ia 233582555 Active 2022 Jl Hameed, DO [address] [place] [address], [address], [facility] 3 09:37:39 Unsteady when walking 44379563 Active 2022 Jl Hameed DO [address] [place] [address], , [facility] 3 09:38:19 Nausea, vomiting and diarrhea 5641703 Active 2022 BELEN BEGUM [address] [place] [address], , [facility] 3 15:29:32 Liver function tests outside reference range 454931253 Active 2022 BELEN BEGUM [address] [place] [address], , 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 2022 Jl Hameed DO [address] [place] [address], [address], [facility] 3 22:13:57 Acute upper gastroint estinal hemorrhag e 49057189 Active 2022 Jl Hameed, DO [address] [place] [address], [address], [facility] 3 22:14:28 Anemia 490357769 Active 2022 Jl Hameed, DO [address] [place] [address], [address], [facility] 3 22:15:19 Bilateral hearing loss 17692998 Active 2022 BELEN BEGUM [address] [place] [address], [address], [facility] 3 15:04:21 Melena 0080761 Active 2022 BELEN BEGUM [address] [place] [address], [address], [facility] 3 10:41:10 Inappropr iate sinus tachycard ia 989081425 Active 2022 Jl Hameed, DO [address] [place] [address], [address], [facility] 3 10:16:50 Gastroint estinal hemorrhag e 03754286 Active 2022 Jl Hameed, DO [address] [place] [address], [address], [facility] 3 13:45:49 Recurrent urinary tract infection 687548953 Active 2023 Jl Hamede DO [address] [place] [address], [address], [facility] 4 16:46:48 Synovial cyst of left knee 795216846710 102 Active 2023 Jl Hameed [address], [address], [facility] 4 12:37:49 Dysuria 96031302 Active 2023 Jl Hameed [address], [address], [facility] 4 11:26:29 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 194104913 Active 2023 Jl Hameed, DO [address] [place] [address], [address], [facility] 4 16:07:14 Allergic reaction to drug 215318362 Active 2023 BELEN BEGUM [address] [place] [address], [address], [facility] 4 14:05:39 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 2023 Jl Hameed, DO [address] [place] [address], [address], [facility] 4 16:25:32 Disorder of vitamin B12 221098574 Active 2023 Jl Hameed DO [address] [place] [address], [address], [facility] 4 16:32:02 Eczema 40828160 Active 2023 Jl Hameed DO [address] [place] [address], [address], [facility] 4 14:35:51 Contusion of right forearm 687914066339 16381 Active 2024 Jl Hameed DO [address] [place] [address], [address], [facility] 5 13:49:20 Pain of left knee joint 641029118449 107 Active 2024 Jl Hameed DO [address] [place] [address], [address], [facility] 5 13:50:12 Effusion of joint of right knee 397975407755 104 Active 2024 BELEN BEGMU [address] [place] [address], [address], [facility] 5 14:59:43 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 921205616 Active 2024 BELEN BEGUM [address] [place], [address], [facility] 5 15:00:54 Pain of knee region 9733482113 Active 2024 BELEN BEGUM [address] [place] [address], [address], [facility] 5 16:19:23 Pain of right knee joint 874181792555 100 Active 2024 BELEN BEGUM [address] [place], [address], [facility] 5 14:12:53 Problem Notes None recorded. Procedures Surgical History Date Name Laterality Status Provider Name and Address Organization Details Recorded Time Knee Surgery completed [facility] 07/13/2017 12:27:53 Knee Surgery completed [facility] 07/13/2017 12:28:28 Cholecystectomy completed [facility] 07/13/2017 12:29:02 Imaging Results None recorded. Procedure Notes None recorded. Medical Equipment None Reported. Allergies Allergen ID Allergen Name Allergen Category Reaction Reaction Severity Criticality Documentation Date Start Date Code Code System Note Provider Name and Address Organization Details Recorded Time 2387 Lyrica medicatio n Not available Not available Not available 02/01/2018 62347 1 RxNorm leg pain, sleep ing all the time Veromarlyn Mercado [facility] 8 13:32:10 550 gabapenti n medicatio n Not available Not available Not available 07/13/2017 01276 RxNorm Light head, numbn ess in hands Veromarlyn Mercado [facility] 8 12:22:40 551 Product containin g penicilli n (product) medicatio n Not available Not available Not available 07/13/2017 84225 8001 SNOMED [facility] Jess [facility] 8 12:22:54 552 Product containin g 3-hydroxy -3-methyl glutaryl- coenzyme A reductase inhibitor (product) medicatio n Not available Not available Not available 07/13/2017 08955 009 SNOMED Vero shen [facility] 8 12:23:15 553 Levaquin medicatio n Not available Not available Not available 07/13/2017 19690 2 RxNorm Vero shen [facility] 8 12:23:26 8253 Gemtesa medicatio n rash Not available Not available 12/06/20232023 84248 16 RxNorm Ashley shen [facility] 4 13:44:53 8254 Substance with sulfonami de structure and antibacte rial mechanism of action (substanc e) medicatio n Not available Not available Not available 12/06/2023 40423 8003 SNOMED BELEN BEGUM [address] [place] [address], [address] [place] [address] Internal [facility] 4 14:06:19 Medications Name Sig Start [...] No t Available prednisone 10 mg tablet Take 1 tablet every day by oral route as directed for 10 days. 02/03 completed Not Available Not Available Not Available [...] Available Not Available prednisone 20 mg tablet TAKE 1 TABLET BY MOUTH EVERY DAY WITH A MEAL FOR 28 DAYS 01/17 completed Not Available Not Available Not Available [...] capsule TAKE 1 CAPSULE BY MOUTH DAILY 12/22 completed Not Available Not Available Not Available ropinirole 0.5 mg tablet 08/16 completed [...] Relief 50 mcg/actuati on nasal spray,suspe nsion [place] 1 spray every day by intranasa l [...] Updated DateTime 09/05/2024 162.56 cm 24.4 kg/m2 39923.12 g 132/73 mm[Hg] Kell Jamil [facility] 09/05/2024 13:36:06 Date Recorded Body height Body mass index (BMI) Body weight Heart rate Oxygen saturation Oxygen saturation in Arterial blood by Pulse oximetry Systolic And Diastolic Provider Name and Address Organization Details Last Updated DateTime 5 162.56 cm 26.1 kg/m2 47612.4 g 80 /min 94 % 94 % 118/74 mm[Hg] Ashley Gerardo [facility] 14:48:53 Date Recorded Body height Body mass index (BMI) Body weight Heart rate Oxygen saturation Oxygen saturation in Arterial blood by Pulse oximetry Systolic And Diastolic Provider Name and Address Organization Details Last Updated DateTime 4 162.56 cm 25.5 kg/m2 67172.4 7 g 74 /min 99 % 99 % 140/86 mm[Hg] Alexx [place] [facility] 4 13:51:21 Date Recorded Body height Body mass index (BMI) Body weight Heart rate Oxygen saturation Oxygen saturation in Arterial blood by Pulse oximetry Systolic And Diastolic Provider Name and Address Organization Details Last Updated DateTime 4 162.56 cm 24.5 kg/m2 04399.7 1 g 74 /min 99 % 99 % 162/84 mm[Hg] Jl Hameed, DO [address] [place], [address], [facility] 4 14:05:31 Social History Question Answer Notes LastModified by Organizat ion Details LastModified Time Tobacco Smoking Status Former Smoker Not Available [employer] 02/27/2020 03:36:23 What Was The Date Of Your Most Recent Tobacco Screening? 09/05/2024 [email or web address] Information not available 09/05/2024 How Many Years Have You Smoked Tobacco? 12 [id number] Information not available 02/27/2020 Sex: Unknown Functional [...] Tdap 03/23/20 20 completed Radha Gencarelle hermelinda [facility] 01/06/2021 14:52:31 Pneumococcal conjugate PCV 13 02/25/20 17 completed Michelle shen [facility] 01/06/2021 14:58:01 COVID-19, mRNA, LNP-S, PF, 100 mcg/0.5mL dose or 50 mcg/0.25mL dose 06/26/19 21 completed Michelle shen [facility] 01/06/2021 14:58:48 COVID-19, mRNA, LNP-S, PF, 100 mcg/0.5mL dose or 50 mcg/0.25mL dose 05/28/19 21 completed Jl Hameed DO [address] [place] [address], [address], [facility] 07/14/2021 16:25:57 COVID-19, mRNA, LNP-S, PF, 100 mcg/0.5mL dose or 50 mcg/0.25mL dose 04/07/20 21 completed Jl Hameed DO [address] [place] [address], [address], [facility] 07/14/2021 16:26:04 Influenza, split virus, quadrivalent, preservative 04/07/20 21 [facility] 09/26/[facility]21 09:34:49 influenza, unspecified formulation 04/03/20 22 completed Jl Hameed DO [address] [place] [address], [address], [facility] 05/15/2022 14:49:17 Influenza, split virus, quadrivalent, preservative 02/17/20 18 completed [facility] 06/08/2018 14:33:06 pneumococcal polysaccharide PPV23 06/25/19 19 completed Jl Hameed DO [address] [place] [address], [address], [facility] 06/25/2018 10:41:36 zoster live 11/05/19 19 completed Jl Hameed DO [address] [place] [address], [address], [facility] 11/05/2018 10:43:34 zoster live 01/14/20 19 [facility] 01/16/2019 08:06:43 Influenza, adjuvanted, trivalent, PF 01/29/20 [facility] 01/30/2019 12:01:02 Influenza, split virus, quadrivalent, preservative 01/29/20 20 completed Jl Hameed DO [address] [place] [address], [place], [address], [facility] 04/16/2020 14:30:36 Influenza, split virus, quadrivalent, preservative 02/19/20 17 completed Veromarlyn shen [facility] 07/13/2017 13:26:49 Past Encounters Encounter ID Performer Location Encounter Start Date Encounter Closed Date Diagnosis/Indication Diagnosis SNOMED-CT Code Diagnosis ICD10 Code Diagnosis IMO Codes Diagnosis Note [id number] Jl Hameed [facility] [address] [facility], [place] [address] 08/16/2017 13:33:31 08/16/2017 14:10:36 Chronic kidney disease stage 2 965486492 N18.2 unclear etiology, has been present since at least 07/2015, though her older records are in a second volume. will recheck labs, reccommend being very well hydrated handwritte n lab for CMP, lipids, cbc will need to pull second volume to determine when sx started Liver func tion tests outside reference range 090838797 R94.5 handwritte n lab for CMP, lipids, cbc, hcv, hbv Generalize d anxiety disorder 27891919 F41.1 on fluoxetine , for many years Restless l egs syndrome 61863415 G25.81 takes lyrica with good effect Upper resp iratory infection 20318585 J06.9 likely viral, recommend fluids, rest, mucinex-dm , sx likely will last 7-10 days, f/u if sx worsen or persist there after. [id number] Jl Hameed [facility] [address],[place] [address] 02/01/2018 13:22:59 02/01/2018 14:08:40 Chronic kidney disease stage 2 854907381 N18.2 unclear etiology, has been present since at least 07/2015, though her older records are in a second volume. will recheck labs, reccommend being very well hydrated worsened in july labs, will recheck will dc prilosec due to possible renail impairment Liver func tion tests outside reference range 825244860 R94.5 improved in july labs Generalize d anxiety disorder 66936967 F41.1 on fluoxetine , for many years Restless l egs syndrome 10206126 G25.81 will check levels today cristo has been d/cd will trial clonazepam Hyperlipidemia 04799777 E78.5 borderline , will recheck Gastroesop hageal reflux disease 169771750 K21.9 [id number] Jl Hameed [facility] [address] [facility],[place] [address] 02/23/2018 13:33:51 02/23/2018 14:24:06 Depressive disorder 39591169 F32.0 stable migraines also stable Unintentio nal weight loss 310439803 R63.4 with abdominal pain and anemia wgt loss >40lbs Iron defic iency anemia 53729589 D50.9 [id number] Jl Hameed [facility] [address],[place] [address] 03/11/2018 11:10:51 03/11/2018 13:27:39 Anemia 336053802 D64.9 will cont with iron until eval as below Epigastric pain 77308382 R10.13 will need to have GI eval and will need EGD etc and colonoscop y given the patients sgt loss of 40 lbs and anemia and evidence of gastric abnormalit y Mass of ri ght adrenal gland 3453481351 0084237 E27.8 per radiologis t needs the ulstrasoun d done to confirm cyst [id number] Jl Hameed [facility] [address] [address] 06/08/2018 14:06:13 06/08/2018 15:18:39 Adult health examination 435476772 Z00.00 Abdominal pain 81968611 R10.9 believe this from diverticul osis not itis and that she just has some smoulderin g inflammati on this would also explain her mild anemia with no evid or source of bleed Iron defic iency anemia 20313665 D50.9 need to rechk levels she is taking iron daily this also acccounts for her RLS getting better Diverticul osis of sigmoid colon 564481255 K57.30 sanchez adjust her diet and add slowly metamucil [id number] Jl Hameed DO [facility] [address], [place] [address] 07/13/2018 13:57:33 07/13/2018 14:44:23 Malaise and fatigue 810035779 R53.83 wondering if her blood count has dropped again worried that she is bleeding again recheck cbc iron etc Iron defic iency anemia 61976630 D50.9 need to rechk levels she is taking iron daily but this may not be enough her RLS are back again and is usu indicative of low iron Restless l egs syndrome 29367853 G25.81 check iron [id number] Jl Hameed DO [facility] [address], [employer] [place] [address] 07/22/2018 11:43:48 07/22/2018 15:27:37 Iron deficiency anemia 16359514 D50.9 is from a gi bleed as evidenced from her heme positive occult stool cards X3 will need to be seen again by dr deon barnes and will need rescope and perhaps egd if thoughts of upper gi source poss [id number] Jl Hameed [facility] [address], [employer] [place] [address] 12/28/2018 14:42:44 12/28/2018 15:14:54 Cough 32923066 R05 doesn't seem infection, suspect allergies/ PND will r/o atypical pna - get cxr Allergic rhinitis 640823 04 J30.9 allergy treatments Insomnia 900733375 G47.0 0 perhaps xyzal will help with this trial for a couple weeks and see if further treatment is needed [id number] Jl Hameed DO [facility] [address],[place] [address] 07/10/2019 13:28:38 07/10/2019 14:03:55 Adult health examination 455389588 Z00.01 she has gained some weight back thankfully Iron defic iency anemia 54137658 D50.9 is from a gi bleed as evidenced from her heme positive occult stool cards X3 she feels markedly better after the IRON infusions will need to be seen again by dr deon barnes and will be followed [id number] Jl Hameed [facility] [address] [facility],[place] [address] 10/03/2019 15:17:44 10/03/2019 16:27:14 Pain of right calf 3142923936 706215 M79.661 the patient reports swelling, warmth in the right calf and tenderness to palpation Edema of l ower extremity 922205499 R60.0 swelling of bilateral knees will send back to ortho [id number] Jl Hameed DO [facility] [address] [facility] [address] 01/08/2020 13:28:57 01/08/2020 14:18:35 Hyperlipidemia 95690786 E78.5 will rechk at next lab Iron defic iency anemia 02137114 D50.9 is from a gi bleed as evidenced from her heme positive occult stool cards X3 she feels markedly better after the IRON infusions has finished her iron infusions but will follow the hematologi st in 3 mo will need to be seen again by dr lynda barnes and will be followed Diverticul osis of sigmoid colon 456364854 K57.30 sanchez adjust her diet and add slowly metamucil Prerenal azotemia 618011 001 N25.9 [id number] Jl Hameed [facility] [address] [facility],[place] [address] 03/27/2020 13:25:39 03/27/2020 13:56:50 Migraine 47015034 G43.909 helped with the sumatripta n, increased after the injury Dizziness 410993874 R42 the patient doing much better today Vertigo 099303979 R42 [place] [id number] Jl Hameed [facility] [address] [facility],[place] [address] 04/16/2020 14:08:59 04/16/2020 15:14:12 Dizziness 548510407 R42 part of her post concussion synd Iron defic iency anemia 70002817 D50.9 is from a gi bleed as evidenced from her heme positive occult stool cards X3 she feels markedly better after the IRON infusions has finished her iron infusions but will follow the hematologi st in 3 mo will need to be seen again by dr lynda barnes and will be followed Gastroesop hageal reflux disease 758579061 K21.9 stable on current meds 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 relates is slowly getting better but still has some lingering symptoms and Closed fra cture of malar AND/OR maxillary bones 74996541 S02.400A slowly healing and doing better ent and dental both feel no surgery is needed [id number] Jl Hameed, [facility] [address] [facility],[place] [address] 08/26/2020 13:25:05 08/26/2020 14:40:35 Iron deficiency anemia 40506615 D50.9 is from a gi bleed as [...] cbc decreases Diverticul osis of sigmoid colon 463153588 K57.30 has adjust her diet and cont metamucil Dizziness 490972408 R42 finally resolved now post concuss [id number] [facility] [address] [facility],[place] [address] 01/08/2021 13:20:59 01/08/2021 14:46:00 Mass of right adrenal gland 7567313019 8034109 E27.8 per radiologis t needs the ulstrasoun d done to confirm cyst Depressive disorder 3548 9003 F32.0 stable migraines also stable Closed fra cture of malar AND/OR maxillary bones 35578977 S02.400A slowly healing and doing better ent and dental both feel no surgery is needed Iron defic iency anemia 00235954 D50.9 is from a gi bleed as [...] she usu knows when cbc decreases Hyperlipidemia 03865843 E78.5 will rechk at next lab Gastroesop hageal reflux disease 518867756 K21.9 stable on current meds Bilateral osteoarthritis of knees 2115238891 79028 M17.0 having pain around prosthetic swe will try some meloxicam [id number] Jl Hameed DO [facility] [address] [facility] [address],[place] [facility] [address] 05/14/2021 08:12:09 05/16/2021 13:11:42 Iron deficiency anemia 68136136 D50.9 she feels a little better after [...] have her see a GI specialist Restless l egs syndrome 60617683 G25.81 check iron Diverticul osis of sigmoid colon 009621815 K57.30 has adjust her diet and cont metamucil Mass of ri ght adrenal gland 6173053024 4117838 E27.8 per radiologis t needs the ultrasound done to confirm cyst Depressive disorder 3548 9007 F32.0 stable migraines also stable Closed fra cture of malar AND/OR maxillary bones 35279572 S02.400A stable and doing better ent and dental both feel no surgery is needed Migraine 25201060 G43.90 9 has been stable but ran out of sumatripta n [id number] Jl Hameed DO [facility] [address] [facility] [address] 07/14/2021 16:17:28 07/15/2021 11:02:41 Diverticulosis of colon 167256779 K57.30 cont to improve and eating good and bowels are much better she will call andreas if her pain returns in her LLQ or fever or both [id number] Jl Hameed DO [place] [address] [facility] [address],[place] [facility] [address] 09/26/2021 15:51:14 09/26/2021 16:24:35 Hyperlipidemia 45400805 E78.5 will rechk at next lab Gastroesop hageal reflux disease 496354853 K21.9 stable on current meds Iron defic iency anemia 87464918 D50.9 doing much bettereati ng better PRIOR [...] a GI specialist Advance care planning 71 7880452 Z71.89 done [id number] Jl Hameed [facility] [address] [facility] [address],[place] [facility] [address] 12/19/2021 13:31:27 12/19/2021 14:33:24 Migraine 38873934 G43.909 has been stable but ran out of sumatripta n Advance care planning 71 5089968 Z71.89 Has on file with [facility] Polymyalgi a rheumatica 84733410 M35.3 we will begin to slowly taper the prednisone will have been on pred 40mg for one month on dec 5will decrease to 35 mg after the weekend and see how she doeswill get an esr after a couple [id number] Jl Hameed [facility] [address] [facility], [place] [address] 01/16/2022 16:17:09 01/19/2022 09:59:46 Polymyalgia rheumatica 82811153 M35.3 she feels great and is doing wonderfule sr was 80 and is now down to 4appetite is too good Bilateral osteoarthritis of knees 5021946004 96692 M17.0 is feeling great Diverticul osis of sigmoid colon 106008475 K57.30 has adjust her diet and cont metamucil Gastroesop hageal reflux disease 721546362 K21.9 stable on current meds Iron defic iency anemia 03762931 D50.9 doing much bettereati ng better PRIOR [...] to have her see a GI specialist [id number] Jl Hameed DO [facility] [address] [facility],[place] [address] 03/16/2022 15:06:22 03/16/2022 15:38:34 Polymyalgia rheumatica 55529922 M35.3 she feels great and is doing wonderfule sr was 80 and is now down to 4 and last week 7 so is down to her last dose and now dc we will rechk a esr in few weeksappet ite is too good she will call if her sx return and we will do quick pred pulse dosewill see in spring [id number] Jl Hameed DO [facility] [address] [facility] [facility] [address] 05/15/2022 14:37:24 05/15/2022 15:28:13 Iron deficiency anemia 73162245 D50.9 now her symptoms are mimicing her prior severe iron def anemia we will check lab now and have her see dr howell andreas Mass of ri ght adrenal gland 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 E27.8 per radiologis t needs the ultrasound done to confirm cyst Polymyalgi a rheumatica 46781612 M35.3 she feels great and is doing wonderfule sr was 80 and is now down to 4 and last week 7 so is down to her last dose and now dc we will rechk a esr in few weeksappet ite is too good she will call if her sx return and we will do quick pred pulse dosewill see in spring Depressive disorder 0002 1281 F32.0 stable migraines also stable Closed fra cture of malar AND/OR maxillary bones 40080486 S02.400A stable and doing better ent and dental both feel no surgery is needed Advance care planning 71 2793852 Z71.89 Has on file with [facility] [id number] Jl Del RosarioJannette Hameed [facility] [address] [facility],[place] [facility] [address] 07/01/2022 14:20:51 07/01/2022 15:27:01 Polymyalgia rheumatica 57013078 M35.3 she feels great and is doing [...] see in spring Advance care planning 71 4441304 Z71.89 Has on file with [facility] Iron defic iency anemia 11649029 D50.9 now wondering if iron def has returned and is causing the tremor in handswe will rechk in lab now Tremor 21384460 R25.1 unsure etiol could be from iron def or ?pred taper ? no med that are new etcwill chk lab now if the labe is negative then we should try a beta clifford [id number] Jl Hameed [facility] [address] [facility],[place] [address] 08/11/2022 10:24:40 08/11/2022 12:19:51 Adult health examination 694419114 Z00.00 has noticed increased fatigue as of late Acute urin mahesh tract infection 888343785 N39.0 Atrial fibrillation 4943 6004 I48.91 will initiate metoprolol and put her on asa until definitive dx we obtained tentative dx by exam and by Esmer Hameed [facility] [address] [facility] [address] [address] 08/28/2022 09:00:48 08/28/2022 11:10:24 Iron deficiency anemia 44450667 D50.9 cbc normal iron level is also goodwillst op iron supp she has been having GI upset Stomach cramps 19479709 R10.9 prob secondary to sulfa med now feels better Atrial tachycardia 36944 6006 I47.1 we will have her cont the metoprolol low dose and see her in myra Unsteady when walking 22 240458 R26.89 will get a eval done [id number] Jl Hameed DO [facility] [address] [facility],[place] [address] 09/14/2022 09:12:26 09/14/2022 11:23:12 Abdominal pain 28462809 R10.11 start on dicyclomin e 20 mg TID and nausea she will continue zofran Nausea, vo miting and diarrhea 3905741 R11.2 elevated LFTs, protein and signs of anemia; concern for biliary symptom problem [id number] Jl Hameed DO [facility] [address] [facility],[place] [address] 10/02/2022 15:40:40 10/02/2022 16:24:29 Pre-surgery evaluation 731404330 Z01.818 The patient was seen in the office today for pre-op evaluation . All medical conditions on patient's problem list were addressed and are currently stable, no interventi on needed at this time. Based on history and physical performed, the patient is cleared for surgery. [id number] Jl Hameed DO [facility] [address] [facility],[place] [address] 11/20/2022 08:00:16 11/20/2022 14:17:23 Polymyalgia rheumatica 59577851 M35.3 she feels great and is doing wonderfuln o longer on prednisone she will call if her sx return and we will do quick pred pulse dosewill see in spring Gastroesop hageal reflux disease 951267226 K21.9 stable on current meds Cyst of uterus 058621 N 88.8 did well with surgery and no major issues was 12cm in size Diverticul osis of sigmoid colon 095385465 K57.30 has adjust her diet and cont metamucil Urinary incontinence 165 633834 R32 going to a incont clinic at [facility] Bilateral osteoarthritis of knees 7735838444 03539 M17.0 we will provid cor t inj when she is ready [id number] Jl Hameed DO [facility] [address] [facility],[place] [address] 12/25/2022 08:04:46 12/25/2022 15:24:45 Acute upper gastrointestinal hemorrhage 71694068 K92.1 will set up with recheck BW Gastroesop hageal reflux disease 490267623 K21.9 stable Hyperlipidemia 36079310 E78.2 stable Iron defic iency anemia 02798955 D50.9 stable Bilateral hearing loss 88189642 H90.5 referral sent [id number] Jl Hameed [facility] [address] [facility] [address],[place] [address] 02/22/2023 09:47:49 02/22/2023 10:59:43 Bilateral osteoarthritis of knees 8345259478 25518 M17.0 she has a new stimulator doing well with it so far Iron defic iency anemia 07306607 D50.9 cbc normal if iron level is also goodwillst op iron supp she has been having GI upset Acute uppe r gastrointestinal hemorrhage 37107442 K92.1 no further bleedingno perlita Inappropri ate sinus tachycardia 813852092 I47.11 quiet nno issues [id number] Jl Hameed [facility] [address] [facility],[place] [address] 04/21/2023 09:18:25 04/21/2023 15:17:48 Bilateral osteoarthritis of knees 8285963641 26333 M17.0 she has a new stimulator doing well with it so far Anemia 241064754 D64.9 will cont with iron until eval as below Inappropri ate sinus tachycardia 971706749 I47.11 quiet no issues Gastrointe stinal hemorrhage 01399635 K92.2 has had major work up after recent bleeding that required mult transfusio ns (at least 4)await results of video capsule [id number] Jl Hameed [facility] [address] [facility] [address],[place] [address] 07/26/2023 11:53:47 07/26/2023 14:25:43 Synovial cyst of left knee 3967056235 89568 M71.22 ruptured now resolving discussed care and ongoing tx Iron defic iency anemia 53983148 D50.9 doing fantastic with her iron infusions Acute urin mahesh tract infection 337275490 N39.0 now is asymptomat ictold her to use the lubricant every day [id number] Jl Hameed [facility] [address] [facility],[place] [address] 12/06/2023 13:29:44 12/06/2023 14:45:24 Depression screening 571721127 Z13.31 SCREENING NEGATIVE Allergic r eaction to drug 395219919 T78.49XA will start on prednisone for the rash (allergic reaction)w ill set up wtih hydroxyzin e for the itch specifical ly [id number] Jl Hameed [facility] [address] [facility],[place] [address] 12/20/2023 13:45:11 12/20/2023 14:22:27 Polymyalgia rheumatica 74443153 M35.3 she feels great and is doing wonderfuln o longer on prednisone she will call if her sx return and we will do quick pred pulse dosewill see in spring 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 and doing well with iron infusions Anemia 478712396 D64.9 will cont with iron until eval as below Iron defic iency anemia 23260146 D50.9 doing fantastic with her iron infusions [id number] Jl Ginger Hameed [facility] [address] [facility],[place] [address] 03/27/2024 13:49:10 03/27/2024 14:44:29 Adult health examination 105129203 Z00.01 has noticed increased fatigue as of late Screening for cardiovascular system disease 678668382 Z13.6 Screening mammography 24 858796 Z12.31 not required 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 doing well Hyperlipidemia 11350856 E78.2 will rechk at next lab Iron defic iency anemia 04084990 D50.9 doing fantastic with her iron infusions has been stable at 12.2 the last few months skipping iron infusion this month per dr howell Eczema 55081404 L30.9 [id number] Jl Del RosarioJannette Hameed [facility] [address] [facility],[place] [address] 09/05/2024 13:29:17 09/05/2024 13:56:12 Hyperlipidemia 75879999 E78.2 will rechk at next lab Depression screening 171 798596 Z13.31 neg Iron defic iency anemia 99762230 D50.9 doing fantastic with her iron infusions has been stable at 13.5 the last few months skipping iron infusion this month per dr howell Contusion of right forearm 7149827498 0447003 S50.11XA 245412 noted healing but still sore will use tylenol prn Pain of le ft knee joint 3691757816 72244 M25.562 424086 [id number] Jl Del RosarioJannette Hameed [facility] [address] [facility],[place] [address] 10/06/2024 15:19:24 10/06/2024 16:01:25 Pain of left knee joint 5142322752 85819 M25.562 584855 cont with tylenoll for now melox helped but we need lab first Anemia 825135875 D64.9 will cont with iron until eval as below Disorder o f vitamin B12 239116957 E53.8 doing well Stomach cramps 89021597 R10.9 resolved Nausea, vo miting and diarrhea 9399974 R11.2 resolved [id number] Jl Del RosarioJannette Hameed [facility] [address] [facility] [address],[place] [address] 12/18/2024 14:08:51 12/18/2024 16:52:24 Effusion of joint of right knee 2008044130 28738 M25.823 5051757 will set up additional lab workon top of her regular lab work Iron defic iency anemia due to blood loss 137673691 D50.0 167511 will set up with lab work Health Concerns Section Related Observation LastModified by Organization Detai ls LastModified Time None Recorded Concern Status LastModified by Organization Details LastModified Time None Recorded Advance Directives Directive None Recorded Payers Insurance Date Sequence Insurance Name Policy Number Policy Barnhart Covered Member ID Barnhart Member ID Guarantor Name 12/15/2024 1 [place] [employer] Renita Ritchie [id number] Renita Parkerkendra 12/15/2024 2 [place] [id number] Renita Parkerkendra [id number] Renita Ritchie Notes Date Note Type Note Provider Name and Address Organization Details Recorded Time 12/20/19 24 text/htm l ROS as noted in the HPI here for r3echk and is doing ok overall except for a recurrent itchy rashstarted a month ago had just been started on Gemtesa by urol and she stopped after 3 days due to itchy rash given pred with resolution but returned 5 days later unfortunatelyrash is around eyes and mouth and between breasts and is very itchy Jl Hameed, DO [address] [place] [address], [address], [facility] 12/20/2023 14:21:08 03/27/20 24 text/htm l Medicare Annual Wellness VisitReported by PatientSocial/Behavioral HistoryFor diet and nutrition, patient reportshealthy diet. For fracture risk, patient reportsno history of fractures,no recent explained fracture,no sudden unexplained fractures, andno previous musculoskeletal injuries. For physical activity, patient reportsexercises on a regular basis,recent increase in physical activity, andgood physical condition.Mental Status:For depression risk, patient reportsnever feels sad, empty, or tearful,no loss of interest in activities,no significant changes in weight,no sleep disturbances or insomnia,no agitation,no loss of energy,no feelings of worthlessness or guilt,no thoughts of suicide,no history of depression, andno history of mood disorders. For orientation, patient reportsno disorientation to time,no disorientation to date, andno disorientation to place. For concentration and memory, patient reportsno decreased concentrating ability,no memory lapses or loss, anddoes not forget words. For speech/motor difficulties, patient reportsno speech difficulties,no difficulty expressing formulated concepts,no difficulty with fine manipulative tasks,no difficulty writing/copying,no slowed reaction time, anddoes not knock things over when trying to pick them up.Functional AbilityFor hearing, patient reportsno loss of hearing. For vision, patient reportsno vision problems. For activities of daily living, patient reportsable to bathe with limited or no assistance,able to contol urination and bowels,able to dress with limited or no assistance,able to feed self with limited or no assistance,able to get out of chair or bed with limited or no assistance,able to groom with limited or no assistance, andable to toilet with limited or no assistance. For instrumental activities of daily living, patient reportsable to do house work with limited or no assistance,able to grocery shop with limited or no assistance,able to manage medications with limited or no assistance,able to manage money with limited or no assistance,able to prepare meals with limited or no assistance, andable to use the phone with limited or no assistance. For falls risk assessment, patient reportsno frequent falls while walking,no fall in the past year,no fall since last visit, andno dizziness/vertigo. For home safety, patient reportsno unsafe preethi hazzards,no unsafe stairs,no unsafe gas appliances,working smoke/co detectors,wears protective head gear for biking/high velocity,use of seatbelts,practicing 'safer sex',no vision or hearing loss while driving,no fire arms,has hand bars in the bathroom/shower, andgood lighting in the home.ROS as noted in the HPI feeling mere Hameed, DO [address] [place], [address], [facility] 03/27/2024 14:42:23 09/06/19 25 text/htm l AnemiaReported by PatientHPIFor timing, patient reportsbetter. For associated symptoms, patient reportsno shortness of breath,no chest pain,no abdominal pain,no nausea,no vomiting,no melena,no blood in stool,no weakness,no fatigue,no palpitations,no excessive sweating,normal nails,tolerant of cold,no nonfood cravings,no behavior problems,no symptoms of peripheral neuropathy,normal balance,no jaundice,no pallor, andno weight loss. Care Management - HyperlipidemiaReported by PatientHPIFor control, patient reportsusually well controlled,improving, andat goal. For complications, patient reportsno coronary artery disease,no heart attack,no cardiovascular disease,no pancreatitis, andno stroke.ROS as noted in the HPI here for rechk feeling well blood ct is up to 13 or 14 but we have no recordsaid energy is goodhad a fall a few weeks ago injured right arm with resultant abrasions and bruising was told she had carpal tunnel synd in both handsgiven steroid inj and has been in good shape by dr mynor Hameed DO [address] [place], [address], [facility] 09/05/2024 13:53:26 10/07/19 text/htm l Musculoskeletal PainReported by PatientHPIFor location, patient reportspain is not radiating. For severity, patient reportsimproving. For associated symptoms, patient reportsno fever,no weak limbs,no tingling,no numbness of the legs/feet, andno incontinence. For adl (activities of daily living), patient reportsimprove with medication.ROS as noted in the HPI noted ongoing pain in both knees is cesar sore but only takes tylenolalso she has had 2 knee replacements so no mercedes injalso relates yasmany she is very tired as of late Jl Hameed, [address] [place], [address], [facility] Internal [facility] 10/06/2024 15:52:29 12/19/19 text/htm l ROS as noted in the HPI c/o knee pain (R) the patient is having right knee pain and swelling and some right thumb swellinghad similar issues with her L knee in August, had a large effusion the patient denies any trauma or injury ?gout given additional lab work def has OA in her thumb, does have ortho who does her injections BELEN BEGUM [address] [place], [address], [facility] 12/18/2024 15:07:41 OBGyn Episode No OBEpisode recorded.
--- NOTE | 2025-02-18 20:34 | PC.NURSE ---
Pt states she two days ago she developed L chest pain that worsened w/ movement assoc w/ gen malaise and chills. Pt also noted she had swelling in bilat legs but denies diff breathing. Today pt here w/ new onset CHF bnp>3000
[2025-02-18 20:36] VITALS: BP 156/70; PULSE 87; RESP 16; O2SAT 96
[2025-02-18 20:43] LABS: Troponin-I High Sensitivity 3.7 ng/L (<3.5-17.0)
[2025-02-18] MEDS: iohexoL 350 MG/ML 100 ML INFUS..BTL 65 ML IV (22:45)
[2025-02-19] VITALS (7 sets, daily range): BP systolic 117–158; BP diastolic 60–79; PULSE 67–116; RESP 11–18; TEMP 36.6–37.3; O2SAT 95–100; BMI 25.8; BMI 25.9
--- NOTE | 2025-02-19 01:45 | PM.IMHP ---
History of Present Illness Date of Service: 02/19/25 Attending physician on admission: Nico Sylvester Chief Complaint: CHest pain Pt is an 89 yo female with PMH OA recently completed prednisone for B knee pain and swelling (28 days gained 12 pounds was eating all the time), B knee replacements, heart murmur as a child, glaucoma, migraine, upper chronic GIB, Breast cancer R breast s/p lumpectomy, chemo and radiation now in remission, glaucoma, GERD, ROB, urinary incontinence, UTI ovarian cyst s/p hysterectomy, Carpal tunnel syndrome, RLS and previous smoker age [age] 1PPD presents to the ED ambulatory with complaint of chest pain pain arround my heart for the last 2 days. Pt lives with daughter and felt pt should be seen. Pt notes her sister passed in the last year from pericardial effusion and other health problems. Work up in ED included chest xray noting pulmonary edema. CTA neg for PE but notes enlarged pulmonary artery, mild CM and large hiatal hernia. Troponins flat at 4.3, 3.7. BNP 3487. GFR 42, CR CL 30.9. Pt did not present with hypoxia or signs of sepsis. Review of Systems Review of Systems: Pt denies current chest pain at rest, SOB at rest, abd pain, N/V. Pt is not experiencing JOHNSON, visual changes, fatigue, weakness. Pt not having any diarrhea, or constipation. Pt denies any recent falls. Pt lives with her daughter, drives and ambulates independtly. Yes all other systems are reviewed and are negative [facility] Medical History (Updated 02/19/25 @ 02:41 by CHADWICK Ragsdale) Glaucoma Recurrent UTI Iron deficiency anemia Chronic upper gastrointestinal bleeding Migraine Acute anemia Cataracts, bilateral FH: total knee replacement Cholecystectomy planned Diverticulitis Hx of breast cancer Iron deficiency anemia Family History Sister Breast cancer Diabetes Mother Diabetes Surgical History History of colostomy reversal H/O total knee replacement H/O colonoscopy Cataract Social History Household Members: Children Household Members Other:: 3 Housing: House Are you a primary physician assistant primary care to a significant other at home: No Do you presently have visiting nurse or other home services: No Alcohol intake: never Comment: Pt low fall risk Patient Tobacco Use Status: Former Tobacco user Smoked in Last 30 Days: No Use of substances other than those prescribed or required for medical reasons: No Advance Directives: Yes Advance Directives Information Provided: No Advance Directives on File: No service: No Current occupational status: retired Meds Allergies Allergy/AdvReac Type Severity Reaction Status Date / Time sulfamethoxazole (From Allergy Severe rash/itchin Verified 02/18/25 18:14 Bactrim) g trimethoprim (From Bactrim) Allergy Severe rash/itchin Verified 02/18/25 18:14 g Penicillins Allergy Mild RASH Verified 02/18/25 18:14 pregabalin (From Lyrica) Allergy Mild Rash Verified 02/18/25 18:14 [id number] Reductase Allergy Mild RASH Verified 02/18/25 18:14 Inhibitor (Statins: Hmg-Coa Reductase Inhibito) levofloxacin (From LEVAQUIN) Allergy Unknown RED RASH Verified 02/18/25 18:14 gabapentin Allergy Unknown Verified 02/18/25 18:14 Active Medications: Current Medications Acetaminophen (Acetaminophen 325 Mg Tablet) 650 mg PO Q6H PRN PRN Reason: Pain, Mild 1-3,fever,headache Albuterol/Ipratropium (Albuterol/Iprat 2.5/0.5mg 3 Ml Ampul.Neb) 3 ml INHALE Q4H PRN PRN Reason: Shortness of Breath/Wheezing Calcium Carbonate (Calcium Carbonate 750 Mg Tab.Chew) 750 mg PO Q4H PRN PRN Reason: Heartburn Enoxaparin Sodium (Enoxaparin Sodium 30 Mg/0.3 Ml Syringe) 30 mg SUBCUT Q24H MANJIT Magnesium Hydroxide (Milk Of Magnesia 30 Ml Oral.Susp) 30 ml PO DAILY PRN PRN Reason: Constipation Melatonin (Melatonin 3 Mg Tablet) 6 mg PO BEDTIME PRN PRN Reason: Insomnia Ondansetron HCl (Ondansetron Hcl 4 Mg/2 Ml Vial) 4 mg IVPUSH Q8H PRN PRN Reason: Nausea and Vomiting Polyethylene Glycol (Polyethylene Glycol 3350 17 Gm Powd.Pack) 17 gm PO DAILY PRN PRN Reason: Constipation Senna (Sennosides 8.6 Mg Tablet) 17.2 mg PO BEDTIME MANJIT Sodium Chloride (0.9 % Sodium Chloride Flush 3 Ml Syringe) 3 ml IVFLUSH QSHIFT MANJIT Home Medications ?Medication ?Instructions ?Recorded ?Confirmed ?Last Taken ?Type fluoxetine 20 mg capsule 1 cap PO BEDTIME 04/04/20 01/17/24 04/04/23 History latanoprost 0.005 % eye drops 1 drp ophthalmic (eye) BEDTIME 04/04/20 01/17/24 04/04/23 History sumatriptan succinate 100 mg tablet 1 tab PO DAILY MRX1 PRN Migraine 04/04/20 01/17/24 04/04/23 History Headache ferrous sulfate 325 mg (65 mg 325 mg PO BID 07/02/20 01/17/24 04/05/23 History iron) tablet (iron) multivitamin 1 tab PO BEDTIME 12/12/22 01/17/24 04/04/23 History ferrous sulfate 325 mg (65 mg 325 mg PO DAILY 10/27/23 01/17/24 Unknown History iron) tablet (FeroSul) Physical Exam Vital Signs and Narrative: Vital Signs: Last Vital Signs Temp 98.7 F 02/19/25 01:08 Pulse 86 02/19/25 01:08 Resp 17 02/19/25 01:08 BP 150/75 H 02/19/25 01:08 Pulse Ox 100 02/19/25 01:08 O2 Del Method Room Air 02/19/25 01:08 BMI result Body Mass Index 25.7 Pt A/O X3, NAD. Neuro: CN II-XII intact HEENT: PERRLA, conjunctiva pink, sclera nonicteric, nares patent, tongue dry and quesada red no thrush, uvual midline Cardiac: S1S2, extra beats on tele, no murmur, no JVD Resp: CTA B ABD: soft, NT, active bowel sounds throughout EXT: no edema, DP and PT pulses palable +2 Psych: mood stable, judgement and insight good Skin: no new rashes or lesions Results Labs 02/18/25 18:07 02/18/25 18:07 Labs: Laboratory Results - last 24 hr 02/18/25 02/18/25 18:07 20:19 MCV 91.1 MCH 28.3 MCHC 31.1 RDW 14.8 Plt Count 431 H D MPV 9.9 Immature Gran % (Auto) 0.4 Neut % (Auto) 63.9 Lymph % (Auto) 24.8 [place] % (Auto) 8.8 Eos % (Auto) 1.5 Baso % (Auto) 0.6 Lymph # (Auto) 1.3 [place] # (Auto) 0.5 Eos # (Auto) 0.1 Baso # (Auto) 0.0 Abs Immat Gran (auto) 0.02 Absolute Neuts (auto) 3.4 Absolute Nucleated RBC 0.000 Nucleated RBC % (auto) 0.0 Anion Gap 14 Estim Creat Clear Calc 30.9 Estimated GFR 42 Random Glucose 123 H Calcium 9.5 Total Bilirubin 0.1 Direct Bilirubin < 0.2 AST 18 ALT < 6 Alkaline Phosphatase 87 Troponin I High Sens 4.3 D 3.7 NT-Pro-B Natriuret Pep 3487.4 H Total Protein 7.0 Albumin 3.7 Imaging Radiologist's Impressions: CHEST CT Findings: Heart size is mildly enlarged. Unremarkable thoracic aorta and great vessels. No aneurysm. Enlarged main pulmonary artery, a finding that can be associated with pulmonary artery hypertension. Moderately large hiatal hernia. Numerous surgical clips in the right axilla. No consolidation or effusion. The visualized upper abdomen is unremarkable. No acute fractures. IMPRESSION: 1. No pulmonary embolus. CXR Findings: Mild interstitial prominence in both lungs. Normal size heart. No acute fracture. IMPRESSION: 1. Mild interstitial prominence in both lungs may represent pulmonary vascular congestion /mild edema. Assessment and Plan (1) Chest pain: Qualifiers: Chest pain type: unspecified Qualified Code(s): R07.9 - Chest pain, unspecified Status: Acute (2) Pulmonary hypertension: Status: Acute (3) Elevated brain natriuretic peptide (BNP) level: Status: Acute Plan Pt is an 89 yo female with PMH OA recently completed prednisone for B knee pain and swelling (28 days gained 12 pounds was eating all the time), B knee replacements, heart murmur as a child, glaucoma, migraine, upper chronic GIB, Breast cancer R breast s/p lumpectomy, chemo and radiation now in remission, glaucoma, GERD, ROB, urinary incontinence, UTI ovarian cyst s/p hysterectomy, Carpal tunnel syndrome, RLS and previous smoker age [age] 1PPD presents to the ED ambulatory with complaint of chest pain pain arround my heart for the last 2 days. Pt's symptoms otherwise nonspecific. Pt being admitted for suspected new onset HF and pulmonary HTN. Chest pain Troponins X2 flat BNP elevated CTA neg PE, no hypoxia ECG neg for ischemic changes, noted PVCs MG and TSH pending CTA notes pulmonary HTN Elevated BNP/ suspected new onset HF BNP 3487 ECHo ordered Lasix 20 IV daily Cardiology consulted Telemetry, continuous pulse ox Daily weights Fluid allowance 1500, low Na diet Pulmonary HTN via CTA Echo pending MGMT per cardiology HTN Hydralazine prn Pt not normally on anti-hypertensives Low dose BB 12.5 metoprolol tartrate ordered GERD Omeperazole ROB Continue Iron once med rec completed HGB 11.1, no indication for transfusion Chronic OA B knees/ CTS R wrist/hand recently completed steroids (28 days of prednisone) gained 12 pounds Tylenol prn CKD Renal fx at baseline compated to labs July 2024 Avoid hypotension Avoid NSAIDS HX of migraine No migraines for some time sumitriptan prn DVT prophylaxis: lovenox MED REC PENDING FULL CODE Quality Stroke Does the patient have a stroke diagnosis?: No Reason for No Anti-thrombotic by Day Two: N/A - Med Ordered VTE Prior VTE?: No VTE Risk Level:: Medical - moderate - high VTE Device Contraindication: N/A - Device Ordered VTE Drug Contraindication: N/A - Med Ordered
[2025-02-19 02:13] LABS: Magnesium 1.9 mg/dL (1.6-2.6)
[2025-02-19] MEDS: Metoprolol Tartrate 12.5 MG HALFTAB PO (02:45)
[2025-02-19 03:59] LABS: MANUAL DIFF FLAG NO
[2025-02-19 04:00] LABS: Hematocrit 35.0 % (37.0-47.0); Hemoglobin 10.9 g/dl (12.0-16.0); Imm Gran Abs Auto 0.03 X10*3/uL (0.00-0.03); Imm Gran Pct Auto 0.6 % (0.0-0.4); Lymphocytes Absolute Auto 1.1 X10*3/uL (1.2-4.9); Mean Corpuscular HGB Conc 31.1 g/dl (31.0-35.0); Mean Corpuscular Hemoglobin 27.8 pg (27.0-33.0); Mean Corpuscular Volume 89.3 fL (80.0-98.0); NRBC Abs Auto 0.000 X10*3/uL (0.0-0.012); NRBC Pct Auto 0.0 /100WBC (0.0-0.2); Platelet Count 354 X10*3/uL (160-400); Red Blood Count 3.92 X10*6/uL (4.20-5.50); White Blood Count 4.9 X10*3/uL (4.8-10.8)
[2025-02-19 04:15] LABS: Alanine Aminotransferase < 6 U/L (0-31); Albumin Level 3.4 g/dL (3.5-5.0); Alkaline Phosphatase 72 U/L (39-117); Anion Gap 13 (12-20); Aspartate Amino Transferase 17 U/L (5-31); Blood Urea Nitrogen 27 mg/dL (9-16); Calcium 9.4 mg/dL (8.4-10.2); Carbon Dioxide 20 mmol/L (22-29); Chloride 109 mmol/L (96-108); Creatinine Clr Calc Pharmacy 35.6; Estimated Glomerular Filt Rate 49; Potassium 4.3 mmol/L (3.3-5.1); Sodium 138 mmol/L (135-145); Total Protein 6.4 g/dL (6.5-8.0)
--- NOTE | 2025-02-19 07:00 | CA_ITS ---
Transthoracic Echocardiogram Patient (Last, First, Middle): Renita Ritchie A Gender: F Date of : 1935 Age: 89 Procedure Date: 02/19/2025 Procedure Type: Transthoracic Echocardiogram Location: ER Height: 165.1 cm Weight: 69.85 kg BSA: 1.77 m2 Heart Rate: bpm BP: 117 / 60 mmHg Terrazzo Laborer: VH Referring MD: Trang CHESTERPCHRIS Symptoms: elevated BNP Study Quality: Good ECG Rhythm: Sinus Conclusions: - The left ventricular systolic function is normal. The calculated ejection fraction is 60% by biplane method. - There is severely increased left ventricular wall thickness. - There is mild to moderate tricuspid valve regurgitation. Findings Left Ventricle Normal left ventricular cavity size. There is severely increased left ventricular wall thickness. The left ventricular systolic function is normal. The calculated ejection fraction is 60% by biplane method. There is no evidence of regional wall motion abnormalities. Evidence suggests grade I (mild) diastolic dysfunction. Right Ventricle Normal right ventricular cavity size and systolic function. Atria Both atria are normal in size. Aortic Valve There is a normal trileaflet aortic valve. There is mild calcification of the aortic valve. There is no aortic valve stenosis. There is no aortic valve regurgitation. Mitral Valve There is mild mitral annular calcification. There is trace mitral valve regurgitation. There is no mitral valve stenosis. Pulmonic Valve The pulmonic valve is likely normal. Tricuspid Valve Normal tricuspid valve structure. There is mild to moderate tricuspid valve regurgitation. Top normal RVSP. Great Vessels The asc aorta is normal in size. Moderate plaque is seen in the ascending aorta. Venous The inferior vena cava is normal in size and collapses greater than 50% with inspiration. Pericardium/Pleural There is a trivial pericardial effusion. Prior Study Comparison No prior study available for comparison. Measurements 2D Linear Measurements IVSd: 1.59 0.6-0.9/0.6-1.0 cm LVIDd: 3.93 3.9-5.3/4.2-5.9 cm LVIDd Index: 2.22 2.4-3.2/2.2-3.1 cm/m2 LVIDs: 2.62 2.0-3.6 cm LVPWd: 1.48 0.7-1.1 cm Ao Root: 3.10 2.1-3.5 cm LA Diam: 3.70 2.7-3.8/3.0-4.0 cm LAIDs Index: 2.09 1.5-2.3 cm/m2 LV Mass: 293.59 67-162/88-224 g LV Mass Index: 165.87 43-95/49-115 g/m2 LVOT Diam: 2.00 3.0+(-)1.3 cm 2D Systolic Function EF 4C: 58.40 >55% EF 2C: 63.10 >55% EF BiP: 60.20 >55% Mitral Valve MV VTI: 0.38 MV Pk Selvin: 1.35 MV Mn Selvin: 0.72 MV Pk Grad: 7.00 MV Mn Grad: 2.00 MV Pk E: 0.71 MV PK A: 1.31 MV Decel Time: 331.00 E/A: 0.50 E'Lateral: 6.96 E'Medial: 4.90 E/E' Med: 14.40 E/E' Lat: 10.20 PHT: 97.00 MVA PHT: 2.27 MVA Continuity: 2.14 Decel Bledsoe: 2.13 Aortic Valve AoV Pk Selvin: 1.74 AoV Mn Selvin: 0.96 AoV VTI: 0.36 AoV Pk Grad: 12.00 Aov Mn Grad: 5.00 MIKE Cont.VTI: 2.30 LVOT LVOT Pk Selvin: 1.10 LVOT Mn Selvin: 0.66 LVOT VTI: 0.26 LVOT Pk Grad: 5.00 LVOT Mn Grad: 3.00 LVOT Diam: 2.00 LVOT Area: 3.14 Diastolic Function MV Pk E: 0.71 MV Pk A: 1.31 E/A: 0.50 E'Medial: 4.90 E/E' Med: 14.40 E' Laterial: 6.96 E/E' Lat: 10.20 Right Ventricle TAPSE (mm): 21.00 TVS' Selvin: 18.00 Tricuspid Valve TR Pk Selvin: 2.83 TR Pk Grad: 32.00 RA Press: 3.00 RVSP: 35.00 Great Vessels Aorta Ao Root-2D: 3.10 2.0-3.7 cm Ao Asc: 3.40 2.1-3.4 cm Pulmonary Valve PV Pk Selvin: 0.94 Peak PV Grad: 4.00 Updated in Other Vendor System with Status of Final Coleman Mendiola MD electronically signed on 02/19/2025 12:38:57 PM with status of Final
--- NOTE | 2025-02-19 08:21 | PHA.MEDREC ---
Addendum entered by Caroline Clark RPh 02/19/25 08:34: MED REC REVIEWED BY [facility] Original Note: Pharmacy Consult ? Medication Reconciliation Pharmacy has completed the medication reconciliation. Spoke with pt and she has a list on hand we utilized to confirm med list. Pt takes Sucralfate 1gm tabs 1 TID now instead of QID (pt has been taking it like that for awhile ), she is taking her Iron 325mg tab 1 BID now instead of QD, she is not taking her Women Multivitamin at this time, she is still taking the Cephalexin and Metenamine together to help any urinary infections and she is taking PreserVision but states she has been weening herself off of it due to bauer and not finding it has been doing anything different for her (Pt now taking 1 cap daily as of the last month).
[2025-02-19] MEDS: Flu Vacc TS2025-26(6mo up)/PF 0.5 ML SYRINGE IM (08:59)
[2025-02-19] MEDS: Furosemide 20 MG/2 ML VIAL IVPUSH (08:59)
[2025-02-19] MEDS: 0.9 % Sodium Chloride Flush 3 ML SYRINGE IVFLUSH ×3 (08:59→21:13)
--- NOTE | 2025-02-19 09:45 | PM.CNCAR ---
History of Present Illness History of Present Illness Date of Service: 02/19/25 Chief complaint: nw onset CHF Narrative: This is a cardiology consultation regarding question of congestive heart failure. Patient herself denies any previous cardiac history including coronary disease myocardial infarction or cardiomyopathy. She states that for the last month or so she had been on prednisone because of knee issues. In the same time period, she has apparently gained a lot of weight. However, she denies any history of shortness of breath with activity, paroxysmal nocturnal dyspnea or orthopnea. She also describes some chest pains but these are mainly when turning not bending extra and hence sounds musculoskeletal in nature. She underwent initial workup and then got admitted for further care. We have been asked to assess from cardiac standpoint. Review of Systems Review of Systems: Yes all other systems are reviewed and are negative Constitutional: Constitutional: Reports as per HPI and Reports no additional constitutional complaints Eyes: Eyes: Reports as per HPI and Denies no additional eye complaints ENT: Denies system reviewed and no additional complaints, except as documented and Reports as per HPI Cardiovascular: Cardiovascular: Reports as per HPI, Reports no additional cardiovascular complaints, Denies acrocyanosis, Denies cool extremities, Denies chest pain, Denies leg edema, Denies lightheadedness, Denies palpitations and Denies dyspnea Respiratory: Respiratory: Reports as per HPI, Denies no additional respiratory complaints and Denies dyspnea Gastrointestinal: Gastrointestinal: Reports as per HPI and Denies no additional gastrointestinal complaints Genitourinary: Genitourinary: Reports as per HPI Musculoskeletal: Musculoskeletal: Reports no additional musculoskeletal complaints and Reports as per HPI Integumentary/Breasts: Skin/Breast: Reports system reviewed and no additional complaints, except as docu Neurologic: Reports system reviewed and no additional complaints, except as documented and Reports as per HPI Psychiatric: Psychiatric: Reports no additional psychiatric complaints and Reports as per HPI Endocrine: Endocrine: Reports no additional endocrine complaints, Reports as per HPI and Denies palpitations Hematologic/Lymphatic: Hematologic/Lymphatic: Reports no additional hematologic/lymphatic complaints and Reports as per HPI Allergic/Immunologic: Allergic/Immunologic: Reports no additional allergic/immunologic complaints and Reports as per HPI [facility] Past Medical History Medical History Glaucoma Recurrent UTI Iron deficiency anemia Chronic upper gastrointestinal bleeding Migraine Acute anemia Cataracts, bilateral FH: total knee replacement Cholecystectomy planned Diverticulitis Hx of breast cancer Iron deficiency anemia Family History Family History Sister Breast cancer Diabetes Mother Diabetes Surgical History Surgical History History of colostomy reversal H/O total knee replacement H/O colonoscopy Cataract Social History Social History Household Members: Children Household Members Other:: 3 Housing: House Are you a primary health care administrator to a significant other at home: No Do you presently have visiting nurse or other home services: No Alcohol intake: never Comment: Pt low fall risk Patient Tobacco Use Status: Former Tobacco user service: No Current occupational status: retired [employer] Allergies Allergy/AdvReac Type Severity Reaction Status Date / Time sulfamethoxazole (From Allergy Severe rash/itchin Verified 02/18/25 18:14 Bactrim) g trimethoprim (From Bactrim) Allergy Severe rash/itchin Verified 02/18/25 18:14 g Penicillins Allergy Mild RASH Verified 02/18/25 18:14 pregabalin (From Lyrica) Allergy Mild Rash Verified 02/18/25 18:14 Tadfolp-JRY-QvW Reductase Allergy Mild RASH Verified 02/18/25 18:14 Inhibitor (Statins: Hmg-Coa Reductase Inhibito) levofloxacin (From LEVAQUIN) Allergy Unknown RED RASH Verified 02/18/25 18:14 gabapentin Allergy Unknown Verified 02/18/25 18:14 Active Medications: Current Medications Acetaminophen (Acetaminophen 325 Mg Tablet) 650 mg PO Q6H PRN PRN Reason: Pain, Mild 1-3,fever,headache Last Admin: 02/19/25 02:45 Dose: 650 mg Albuterol/Ipratropium (Albuterol/Iprat 2.5/0.5mg 3 Ml Ampul.Neb) 3 ml INHALE Q4H PRN PRN Reason: Shortness of Breath/Wheezing Calcium Carbonate (Calcium Carbonate 750 Mg Tab.Chew) 750 mg PO Q4H PRN PRN Reason: Heartburn Enoxaparin Sodium (Enoxaparin Sodium 40 Mg/0.4 Ml Syringe) 40 mg SUBCUT Q24H MANJIT Furosemide (Furosemide 20 Mg/2 Ml Vial) 20 mg IVPUSH DAILY MANJIT; Protocol Last Admin: 02/19/25 08:59 Dose: 20 mg Hydralazine HCl (Hydralazine Hcl 20 Mg/Ml Vial) 10 mg IVPUSH Q6H PRN; Protocol PRN Reason: SBP > 160 Magnesium Hydroxide (Milk Of Magnesia 30 Ml Oral.Susp) 30 ml PO DAILY PRN PRN Reason: Constipation Melatonin (Melatonin 3 Mg Tablet) 6 mg PO BEDTIME PRN PRN Reason: Insomnia Ondansetron HCl (Ondansetron Hcl 4 Mg/2 Ml Vial) 4 mg IVPUSH Q8H PRN PRN Reason: Nausea and Vomiting Polyethylene Glycol (Polyethylene Glycol 3350 17 Gm Powd.Pack) 17 gm PO DAILY PRN PRN Reason: Constipation Senna (Sennosides 8.6 Mg Tablet) 17.2 mg PO BEDTIME MANJIT Sodium Chloride (0.9 % Sodium Chloride Flush 3 Ml Syringe) 3 ml IVFLUSH QSHIFT [facility] Last Admin: 02/19/25 08:59 Dose: 3 ml Home Medications ?Medication ?Instructions ?Recorded ?Confirmed ?Last Taken ?Type fluoxetine 20 mg capsule 1 cap PO DAILY 04/04/20 02/19/25 02/18/25 History latanoprost 0.005 % eye drops 1 drp ophthalmic (eye) BEDTIME 04/04/20 02/19/25 02/17/25 History sumatriptan succinate 100 mg tablet 1 tab PO DAILY MRX1 PRN Migraine 04/04/20 02/19/25 02/17/25 History Headache ferrous sulfate 325 mg (65 mg 325 mg PO BID 07/02/20 02/19/25 02/17/25 History iron) tablet (iron) acetaminophen 500 mg tablet 500 mg PO Q6H PRN Pain/Migraine 02/19/25 02/19/25 Unknown History (Acetaminophen Extra Strength) sucralfate 1 gram tablet 1 g PO TID 02/19/25 02/19/25 02/17/25 History vitamins A,C,D-weqq-ttvabq 2,148 1 tab PO DAILY 02/19/25 02/19/25 02/17/25 History mcg-113 mg-45 mg-17.4 mg tablet (PreserVision AREDS) Physical Exam Vital Signs: Vital Signs: Last Vital Signs Temp 99.2 F 02/19/25 04:11 Pulse 75 02/19/25 08:45 Resp 18 02/19/25 08:45 BP 147/78 H 02/19/25 08:45 Pulse Ox 100 02/19/25 08:45 O2 Del Method Room Air 02/19/25 08:45 BMI result Body Mass Index 25.9 Const: General: comfortable and no acute distress Orientation/consciousness: patient oriented x3 HEENT: Other: Unremarkable Head: Yes normal to inspection Neck: Neck: Yes normal visual inspection Chest: Chest palpation & inspection: normal inspection of the chest Resp: Auscultation: clear to auscultation bilaterally Cardio: Palpation: normal PMI Heart sounds: S1 normal heart sound present, S2 normal heart sound present, no gallops, no murmurs and no rubs GI: Palpation (GI): Soft to palpation Back/Spine/Pelvis: Other: unremarkable Skin: General skin exam: no rashes or lesions noted Neuro: General: patient oriented x3 Extrem: General: Yes normal to inspection Psych: Mental Status: mental status grossly normal Objective Labs and Meds 02/19/25 03:55 02/19/25 03:55 Lab results: Laboratory Results - last 24 hr 02/18/25 02/18/25 02/19/25 18:07 20:19 03:55 WBC 5.2 4.9 RBC 4.06 L 3.92 L Hgb 11.5 L 10.9 L Hct 37.0 35.0 L MCV 91.1 89.3 MCH 28.3 27.8 MCHC 31.1 31.1 RDW 14.8 15.0 Plt Count 431 H D 354 MPV 9.9 9.8 Immature Gran % (Auto) 0.4 0.6 H Neut % (Auto) 63.9 63.9 Lymph % (Auto) 24.8 22.1 [place] % (Auto) 8.8 11.6 H Eos % (Auto) 1.5 1.2 Baso % (Auto) 0.6 0.6 Lymph # (Auto) 1.3 1.1 L [place] # (Auto) 0.5 0.6 Eos # (Auto) 0.1 0.1 Baso # (Auto) 0.0 0.0 Abs Immat Gran (auto) 0.02 0.03 Absolute Neuts (auto) 3.4 3.2 Absolute Nucleated RBC 0.000 0.000 Nucleated RBC % (auto) 0.0 0.0 Sodium 139 138 Potassium 4.3 4.3 Chloride 110 H 109 H Carbon Dioxide 19 L 20 L Anion Gap 14 13 BUN 30 H 27 H Creatinine 1.21 1.05 Estim Creat Clear Calc 30.9 35.6 Estimated GFR 42 49 Random Glucose 123 H 100 Calcium 9.5 9.4 Magnesium 1.9 Total Bilirubin 0.1 0.2 Direct Bilirubin < 0.2 AST 18 17 ALT < 6 < 6 Alkaline Phosphatase 87 72 Troponin I High Sens 4.3 D 3.7 NT-Pro-B Natriuret Pep 3487.4 H Total Protein 7.0 6.4 L Albumin 3.7 3.4 L TSH 2.96 ECG Interpretation: EKG with underlying sinus rhythm at 90/Min; premature atrial contractions. Assessment and Plan (1) Chest pain: Qualifiers: Chest pain type: unspecified Qualified Code(s): R07.9 - Chest pain, unspecified Status: Acute (2) Elevated brain natriuretic peptide (BNP) level: Status: Acute Plan Her chest pain itself is very musculoskeletal in nature and not clearly suggestive of angina. High sensitivity troponins are within normal range. With regard to the elevated NT pro BNP, again some elevation but not tremendously elevated. She has weight gain which could be related to just steroid use as she has taken it for almost a month. Clinically, she has got no clear symptoms or signs of congestive heart failure. There is some radiology evidence of the same and hence we will get an echocardiogram for further evaluation. Chest CTA-mildly enlarged heart sides. Enlarged main pulmonary artery. Hiatal hernia. No pulmonary embolus. Chest x-ray-mild interstitial prominence in both lungs-pulmonary vascular congestion/mild edema. Procedures Date of Service Date of Service: 02/19/25
--- NOTE | 2025-02-19 11:14 | HO.PM.IMPN ---
Subjective Subjective Date of Service: 02/23/25 Interval History: f/u on chest pain, weight gain on steroid, no sob Physical Exam Vital Signs: Vital Signs: Last Vital Signs Temp 99.2 F 02/19/25 04:11 Pulse 75 02/19/25 08:45 Resp 18 02/19/25 08:45 BP 147/78 H 02/19/25 08:45 Pulse Ox 100 02/19/25 08:45 O2 Del Method Room Air 02/19/25 08:45 BMI result Body Mass Index 25.9 Const: Other: General: AO X 3, no acute distress Resp: CTA bilateral CVS: S1,S2,RRR GI: +BS, NT, no distention Skin: No rash Neuro: motor grossly intact Psych: appropriate affect Objective Data Active Medications Acetaminophen (Acetaminophen 325 Mg Tablet) 650 mg PO Q6H PRN PRN Reason: Pain, Mild 1-3,fever,headache Last Admin: 02/19/25 02:45 Dose: 650 mg Documented By: ISRAEL Albuterol/Ipratropium (Albuterol/Iprat 2.5/0.5mg 3 Ml Ampul.Neb) 3 ml INHALE Q4H PRN PRN Reason: Shortness of Breath/Wheezing Calcium Carbonate (Calcium Carbonate 750 Mg Tab.Chew) 750 mg PO Q4H PRN PRN Reason: Heartburn Enoxaparin Sodium (Enoxaparin Sodium 40 Mg/0.4 Ml Syringe) 40 mg SUBCUT Q24H MANJIT Furosemide (Furosemide 20 Mg/2 Ml Vial) 20 mg IVPUSH DAILY MANJIT; Protocol Last Admin: 02/19/25 08:59 Dose: 20 mg Documented By: EILEEN Hydralazine HCl (Hydralazine Hcl 20 Mg/Ml Vial) 10 mg IVPUSH Q6H PRN; Protocol PRN Reason: SBP > 160 Magnesium Hydroxide (Milk Of Magnesia 30 Ml Oral.Susp) 30 ml PO DAILY PRN PRN Reason: Constipation Melatonin (Melatonin 3 Mg Tablet) 6 mg PO BEDTIME PRN PRN Reason: Insomnia Ondansetron HCl (Ondansetron Hcl 4 Mg/2 Ml Vial) 4 mg IVPUSH Q8H PRN PRN Reason: Nausea and Vomiting Polyethylene Glycol (Polyethylene Glycol 3350 17 Gm Powd.Pack) 17 gm PO DAILY PRN PRN Reason: Constipation Senna (Sennosides 8.6 Mg Tablet) 17.2 mg PO BEDTIME MANJIT Sodium Chloride (0.9 % Sodium Chloride Flush 3 Ml Syringe) 3 ml IVFLUSH QSHIFT MANJIT Last Admin: 02/19/25 08:59 Dose: 3 ml Documented By: EILEEN Labs 02/19/25 03:55 02/20/25 09:26 Labs: Laboratory Results - last 24 hr 02/18/25 02/18/25 02/19/25 18:07 20:19 03:55 MCV 91.1 89.3 MCH 28.3 27.8 MCHC 31.1 31.1 RDW 14.8 15.0 Plt Count 431 H D 354 MPV 9.9 9.8 Immature Gran % (Auto) 0.4 0.6 H Neut % (Auto) 63.9 63.9 Lymph % (Auto) 24.8 22.1 [place] % (Auto) 8.8 11.6 H Eos % (Auto) 1.5 1.2 Baso % (Auto) 0.6 0.6 Lymph # (Auto) 1.3 1.1 L [place] # (Auto) 0.5 0.6 Eos # (Auto) 0.1 0.1 Baso # (Auto) 0.0 0.0 Abs Immat Gran (auto) 0.02 0.03 Absolute Neuts (auto) 3.4 3.2 Absolute Nucleated RBC 0.000 0.000 Nucleated RBC % (auto) 0.0 0.0 Anion Gap 14 13 Estim Creat Clear Calc 30.9 35.6 Estimated GFR 42 49 Random Glucose 123 H 100 Calcium 9.5 9.4 Magnesium 1.9 Total Bilirubin 0.1 0.2 Direct Bilirubin < 0.2 AST 18 17 ALT < 6 < 6 Alkaline Phosphatase 87 72 Troponin I High Sens 4.3 D 3.7 NT-Pro-B Natriuret Pep 3487.4 H Total Protein 7.0 6.4 L Albumin 3.7 3.4 L TSH 2.96 Assessment and Plan (1) Chest pain: Status: Acute Plan Pt is an 89 yo female with PMH OA recently completed prednisone for B knee pain and swelling (28 days gained 12 pounds was eating all the time), B knee replacements, heart murmur as a child, glaucoma, migraine, upper chronic GIB, Breast cancer R breast s/p lumpectomy, chemo and radiation now in remission, glaucoma, GERD, ROB, urinary incontinence, UTI ovarian cyst s/p hysterectomy, Carpal tunnel syndrome, RLS and previous smoker age [age] 1PPD presents to the ED ambulatory with complaint of chest pain pain arround my heart for the last 2 days. Pt's symptoms otherwise nonspecific. Pt being admitted for suspected new onset HF and pulmonary HTN. Chest pain, presently withouth pain Troponins X2 flat CTA neg PE, no hypoxia, Pul HTN ECG neg for ischemic changes, noted PVC Seen by card, echo to be performed, o/w no further testing Elevated BNP/ CXR pul edema, however clinically no sigs of chf continue Lasix 20 IV daily Cardiology consulted cardiology to review echo Pulmonary HTN via CTA Echo pending MGMT per cardiology Elevated BP, 147/78 Monitor for now GERD Omeperazole ROB, stable. 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
--- NOTE | 2025-02-19 15:50 | MHC.CM.PN ---
IMM 02/19/25, EMR REVIEWED, PT W/CHEST PAIN/NEW ONSET CHF, CM MET W/PT AND DTR/HCP AT BEDSIDE, PT REPORTS SHE LIVES W/DTR MALIA, IS FULLY INDEP W/CARE, PT DOES NOT USE DME HOWEVER DOES HAVE A CANE/WALKER/GRAB BARS NEAR TOILET AND IN SHOWER, NO HOME SERVICES, PT'S GOAL FOR DC IS HOME TODAY IF POSSIBLE. PCP VERIFIED DR. GILBERT, HCP IS DTR MALIA Miles [phone], MALIA REPORTS SHE HAS A COPY AND WILL BRING IT IN.
[2025-02-19] MEDS: Ferrous Sulfate 324 MG TABLET.DR PO (21:11)
[2025-02-20 03:15] VITALS: BP 122/65; PULSE 76; RESP 18; TEMP 36.6; O2SAT 94
[2025-02-20 05:24] VITALS: BMI 25.3
[2025-02-20 07:17] VITALS: BP 120/61; PULSE 78; RESP 16; TEMP 36.7; O2SAT 96
[2025-02-20] MEDS: 0.9 % Sodium Chloride Flush 3 ML SYRINGE IVFLUSH (08:10)
[2025-02-20] MEDS: Furosemide 20 MG/2 ML VIAL IVPUSH (08:11)
[2025-02-20] MEDS: Ferrous Sulfate 324 MG TABLET.DR PO (08:12)
[2025-02-20 09:50] LABS: Anion Gap 15 (12-20); Blood Urea Nitrogen 35 mg/dL (9-16); Calcium 9.8 mg/dL (8.4-10.2); Carbon Dioxide 21 mmol/L (22-29); Chloride 107 mmol/L (96-108); Creatinine Clr Calc Pharmacy 26.9; Estimated Glomerular Filt Rate 36; Potassium 4.0 mmol/L (3.3-5.1); Sodium 139 mmol/L (135-145)
[2025-02-20 11:27] VITALS: BP 116/59; PULSE 80; RESP 16; TEMP 37; O2SAT 94
--- NOTE | 2025-02-20 13:09 | P.DS_ITS ---
DS: Providers Provider Date of Service: 02/20/25 Date of admission: 02/19/25 01:36 Date of discharge: 02/20/25 Primary care physician: Jl Hameed MD Consults: 02/19/25 01:41 Consult to Cardiology Routine Consulting Provider: [facility] Reason for consultation: new onset CHF, pulm HTN Has provider been notified: No DS: Diagnosis Discharge Diagnosis (1) Chest pain: Status: Acute DS: Summary Hospital Course Hospital Course: 89 yo female with PMH OA recently completed prednisone for B knee pain and swelling, B knee replacements, glaucoma, migraine, upper chronic GIB, breast cancer R breast s/p lumpectomy, chemo and radiation now in remission, glaucoma, GERD, ROB, urinary incontinence, UTI ovarian cyst s/p hysterectomy, Carpal tunnel syndrome, RLS and previous smoker age [age] pack years, presents to the ED ambulatory with complaint of chest pain pain around my heart for the last 2 days, admitted with newly diagnosed acute CHF exacerbation and pulmonary hypertension. Hospital Course History of Present Illness: 89-year-old female with a complex medical history including osteoarthritis, bilateral knee replacements, remote breast cancer (s/p lumpectomy, chemotherapy, and radiation, now in remission), glaucoma, chronic upper GI bleeding, iron deficiency anemia, recurrent UTIs, GERD, CKD stage 3B, and recent 28-day prednisone course for knee pain. She presented ambulatory to the ED with 2 days of intermittent chest pain ( pain around my heart ), 10?12 lb weight gain, and mild cough. She denied current chest pain at rest, shortness of breath at rest, abdominal pain, nausea, vomiting, or other acute symptoms. She reported increased appetite and weight gain during her recent steroid course. ED Evaluation: * Vitals:?Stable, afebrile, normoxic * Exam:?No acute distress, irregular rhythm, no murmurs, clear lungs, no edema * Labs: * BNP markedly elevated (3487 pg/mL) * Troponins flat (4.3, 3.7 ng/L) * Creatinine increased from baseline (1.0 to 1.3 mg/dL), GFR 42 * Hgb 11.1?11.5 g/dL (stable, no transfusion needed) * Imaging: * CXR: Mild interstitial prominence, suggestive of mild pulmonary edema * CTA chest: No PE, mildly enlarged heart, enlarged main pulmonary artery (suggestive of pulmonary hypertension), large hiatal hernia * EKG:?Sinus rhythm, frequent PACs, no ischemic changes Hospital Course: * Admitted for new onset heart failure and pulmonary hypertension. * Started on IV furosemide 20 mg daily with good diuresis and improvement in symptoms. * Cardiology consulted; echocardiogram pending at time of discharge. * Monitored on telemetry; no arrhythmias or ischemic events. * Blood pressure remained stable; hydralazine PRN for SBP >160, not required. * Iron supplementation continued for ROB. * GERD managed with omeprazole. * DVT prophylaxis with enoxaparin. * No evidence of infection or acute GI bleeding. * Renal function monitored; creatinine increased from baseline (likely diuretic-related and volume status). * No further chest pain, dyspnea, or edema during hospitalization. * Patient reports return to baseline, improved energy, and better sleep. Status at Discharge Cognitive/behavioral status at discharge: Discharge Condition * General:?Ambulatory, alert and oriented, at baseline functional status. * Cardiac:?Hemodynamically stable, no chest pain, no new arrhythmias. * Pulmonary:?No hypoxia, no respiratory distress. * Renal:?Mild increase in creatinine, stable, likely related to diuresis. * Other:?No evidence of infection, GI bleeding, or other acute issues. Time Attestation Total time managing care of this patient today: 45 mintues. Discharge Coordination Time (in mins): 35 Quality: Safe Use of Opioids Does Pt have an Active Cancer Diagnosis on the Problem List?: No Quality: Stroke Does the patient have a stroke diagnosis?: No Physical Exam Exam: Exam: General: Alert and oriented x3, in no acute distress. Appears well-nourished and comfortable at rest. Vital Signs: Afebrile. Hemodynamically stable. Most recent BP 147/78 mmHg, HR 75 bpm, RR 18, SpO? 100% on room air. HEENT: Normocephalic, atraumatic. Pupils equal, round, reactive to light. Extraocular movements intact. Conjunctivae pink, sclerae anicteric. Oropharynx moist, no lesions. Neck: Supple, no lymphadenopathy, no jugular venous distension. Cardiac: Regular rate and rhythm. S1/S2 normal. No murmurs, rubs, or gallops. No peripheral edema. Lungs: Clear to auscultation bilaterally. No rales, wheezes, or rhonchi. Non-labored respirations. Abdomen: Soft, non-tender, non-distended. Bowel sounds present. No hepatosplenomegaly or masses. Extremities: No cyanosis, clubbing, or edema. Pulses 2+ and symmetric. Neurologic: Alert and oriented. Cranial nerves II-XII grossly intact. Motor and sensory function intact. No focal deficits. Skin: Warm, dry, normal turgor. No rashes or new lesions. Psychiatric: Normal affect and mood. Judgement and insight appropriate. Functional Status: Ambulates independently. Returns to baseline activity level. No new limitations. Vital Signs: Vital Signs: Last Vital Signs Temp 98.6 F 02/20/25 11:27 Pulse 80 02/20/25 11:27 Resp 16 02/20/25 11:27 BP 116/59 L 02/20/25 11:27 Pulse Ox 94 02/20/25 11:27 O2 Del Method Room Air 02/20/25 11:27 BMI result Body Mass Index 25.3 DS: Data Data Completed and Pending Completed studies during hospitalization [Text1]: Procedures Control Bleeding in Gastrointestinal Tract, Via Natural or Artificial Opening Endoscopic (12/12/22) Inspection of Upper Intestinal Tract, Via Natural or Artificial Opening Endoscopic (04/05/23) Introduction of Mineral-based Topical Hemostatic Agent into Upper GI, Via Natural or Artificial Opening Endoscopic, [employer] 6 (12/12/22) Introduction of Other Therapeutic Substance into Upper GI, Via Natural or Artificial Opening Endoscopic (12/12/22) Transfusion of Nonautologous Red Blood Cells into Peripheral Vein, Percutaneous Approach (04/05/23) Labs on day of discharge: Laboratory Results - last 24 hr 02/20/25 09:26 Sodium 139 Potassium 4.0 Chloride 107 Carbon Dioxide 21 L Anion Gap 15 BUN 35 H Creatinine 1.38 Estim Creat Clear Calc 26.9 Estimated GFR 36 Random Glucose 148 H Calcium 9.8 Discharge Plan Discharge Anticipated Discharge Date/Time: 02/20/25 13:15 Patient Disposition: Home Health Service Discharge Diagnosis: acute CHFpEF 50-60% exacerbation with pulmonary HTN Referrals: Jl Hameed MD [Primary Care Provider, Internal Medicine] - 1 Week Discharge Medications: New furosemide 20 mg Tablet 20 mg PO 4XW 30 Days Qty: 18 0RF Protocol: Hold for SBP< HOLD for SBP < : 90 Continued latanoprost 0.005 % drops 1 drp ophthalmic (eye) BEDTIME sumatriptan succinate 100 mg tablet 1 tab PO DAILY MRX1 PRN (Reason: Migraine Headache) Rx Instructions: MRX1 after 2 hours fluoxetine 20 mg capsule 1 cap PO DAILY ferrous sulfate [iron] 325 mg (65 mg iron) Tablet 325 mg PO BID omeprazole 20 mg Capsule,Delayed Release(Dr/Ec) 20 mg PO BID@0630,1630 Qty: 60 0RF sucralfate 1 gram tablet 1 g PO TID acetaminophen [Acetaminophen Extra Strength] 500 mg Tablet 500 mg PO Q6H PRN (Reason: Pain/Migraine) PreserVision AREDS 2,148 mcg-113 mg-45 mg-17.4mg Tablet 1 tab PO DAILY cephalexin 500 mg capsule 500 mg PO DAILY 90 Days Qty: 90 3RF methenamine hippurate 1 gram tablet 1 g PO DAILY 90 Days Qty: 90 3RF Discharge Orders: Discharge Order (Routine); Ordered 02/20/25 Ordered By: Marisela Monsivais Diet: Advance to usual diet Activity on Discharge: As tolerated Stand Alone Forms: Patient Portal Discharge page Print Language: Iranian Other Ambulatory Orders: Basic Metabolic Panel (Routine) Timeframe: 3 Days Facility: [facility] - Location: Laboratory Ordered By: Marisela Monsivais Care Plan Goals: Care Plan Goals * Maintain euvolemia and prevent recurrence of heart failure symptoms * Optimize functional status and quality of life * Prevent further renal impairment * Control blood pressure within target range * Prevent complications related to pulmonary hypertension * Minimize risk of medication side effects and adverse events * Support independence in activities of daily living * Prevent hospital readmission Health Concerns: Health Concerns * New onset heart failure with preserved ejection fraction (suspected) * Pulmonary hypertension (radiographic evidence) * Chronic kidney disease stage 3B with recent increase in creatinine * History of iron deficiency anemia and chronic upper GI bleeding * Recurrent urinary tract infections * Osteoarthritis with recent steroid exposure and weight gain * Remote history of breast cancer (in remission) * Polypharmacy and multiple drug allergies * Advanced age and risk of functional decline Plan of Treatment: Plan of Treatment * Furosemide 20 mg PO every other day for ongoing volume management; monitor for dehydration and hypotension * Repeat basic metabolic panel and renal function in 1?3 days post-discharge * Continue home medications as previously prescribed (including iron, omeprazole, fluoxetine, etc.) * Low sodium diet and fluid restriction (1500 mL/day) * Monitor daily weights at home; report weight gain >2?3 lbs in 24 hours * Outpatient cardiology follow-up for review of echocardiogram and management of heart failure/pulmonary hypertension * Primary care follow-up within 1 week * Monitor for symptoms of heart failure (dyspnea, edema, orthopnea), chest pain, or decreased urine output * Avoid NSAIDs and nephrotoxic agents * Reinforce medication and dietary adherence * Encourage safe ambulation and fall prevention strategies at home Assessment: Ms. Ritchie was admitted for evaluation of new onset heart failure and pulmonary hypertension, likely precipitated by recent steroid use and volume overload. She responded well to diuresis, with improvement in symptoms and return to baseline function. Renal function will require close outpatient mo nitoring due to mild, likely prerenal, increase in creatinine. She is to continue low-dose furosemide every other day and follow up with repeat labs and cardiology.
--- NOTE | 2025-02-20 13:21 | W.MHC.F2F ---
Service Date Service Date: 02/20/25 Encounter Date of encounter: 02/20/25 Reasons for Services Signs and symptoms assessed: Elyh-io-[id number] assessment was required due to the patient?s new onset chest pain, recent unintentional weight gain, lower extremity swelling, and mild cough in the context of multiple chronic comorbidities. The evaluation was necessary to assess for acute decompensated heart failure, pulmonary hypertension, and other potential cardiopulmonary or systemic causes, and to guide appropriate inpatient management and safe transition of care. Reason for detention: medication management, medication treatment and teach disease management Reason for physical therapy: home safety and mobility, therapeutic exercises, gait/transfer training, assess need for DME and energy conservation Reason for occupational therapy: home safety and mobility, therapeutic exercises, gait/transfer training, assess need for DME and energy conservation Homebound: Leaving the home is medically contraindicated at this time without the asist of a device and/or another person due th the listed conditions above and below. Reason homebound: unsteady gait / fall risk, leg weakness, poor balance / fall risk and weakness related to hospital stay Certification: Based on the above findings, I certify that this patient is confined to the home and needs intermittent detention care, physical therapy and/or speech therapy, or continues to need occupational therapy. The patient is under my care, and I have initiated the establishment of the plan of care. The patient will be followed by a physician who will periodically review the plan of care. Time Spent With Patient Time: Total time managing care of this patient today ____ minutes.
--- NOTE | 2025-02-20 13:41 | MHC.CM.PN ---
PT MEDICALLY CLEARED FOR DC HOME W/[facility] FOR SN/PT PT & DTR/MALIA YOO STR, CM CONTACTED MALIA AT NUMBER ON FILE AND MALIA AWARE PT IS VERY UNSTEADY AND MALIA REPORTS PT WILL HAVE SUPERVISION AT HOME, PT'S GRANDSON WILL TRANSPORT PT HOME.
== END 2025-02-20 15:18 | disposition home health service (06) | DRG 291 ==
LOC: HO.ED 02-19 01:30 → HO.EDOVER 02-19 01:43 → HO.IMC 02-19 07:38
PROVIDERS: Nurse Practitioner Family; Admitting Provider Nurse Practitioner Family; Emergency Provider Emergency Medicine; PCP Internal Medicine; Visit Provider Hospitalist
DX: I13.0 Hypertensive heart and chronic kidney disease with heart failure and stage 1 through stage 4 chronic kidney disease, or unspecified chronic kidney disease (principal); I50.31 Acute diastolic (congestive) heart failure; N18.32 Chronic kidney disease, stage 3b; I27.20 Pulmonary hypertension, unspecified; K21.9 Gastro-esophageal reflux disease without esophagitis; D50.9 Iron deficiency anemia, unspecified; M15.9 Polyosteoarthritis, unspecified; I49.3 Ventricular premature depolarization; Z87.440 Personal history of urinary (tract) infections; Z85.3 Personal history of malignant neoplasm of breast; Z87.891 Personal history of nicotine dependence; Z79.899 Other long term (current) drug therapy
CPT/HCPCS: 36415; 71046; 71275; 80048; 80053; 80076; 83735; 83880; 84443; 84484; 85025; 90656; 93005; 93306; 97162; 99285; J1650; J1938; Q9967

== ENCOUNTER → 2025-02-18 17:53 | Outpatient (BNV) | payer MEDICARE, SELFPAY | PROVIDERS: Admitting Provider Nurse Practitioner Family; Emergency Provider Emergency Medicine; PCP Internal Medicine; Visit Provider Internal Medicine | DX: I49.1 Atrial premature depolarization (principal) | CPT/HCPCS: 93010 ==

== ENCOUNTER → 2025-02-18 18:16 | Outpatient (BNV) | payer MEDICARE, SELFPAY | PROVIDERS: Emergency Provider Emergency Medicine; PCP Internal Medicine; Visit Provider Student in an Organized Health Care Education/Training Program | DX: J84.9 Interstitial pulmonary disease, unspecified (principal) | CPT/HCPCS: 71046 ==

== ENCOUNTER → 2025-02-19 01:36 | Outpatient (BNV) | payer MEDICARE, SELFPAY | PROVIDERS: Admitting Provider Nurse Practitioner Family; Emergency Provider Emergency Medicine; PCP Internal Medicine; Visit Provider Internal Medicine | DX: R07.9 Chest pain, unspecified (principal); R79.89 Other specified abnormal findings of blood chemistry; I35.8 Other nonrheumatic aortic valve disorders; I36.1 Nonrheumatic tricuspid (valve) insufficiency; I70.0 Atherosclerosis of aorta | CPT/HCPCS: 93306; 99222 ==

== ENCOUNTER → 2025-02-19 01:36 | Outpatient (BNV) | payer MEDICARE, SELFPAY | PROVIDERS: Admitting Provider Nurse Practitioner Family; Emergency Provider Emergency Medicine; PCP Internal Medicine; Visit Provider Nurse Practitioner Family | DX: R07.9 Chest pain, unspecified (principal); I27.20 Pulmonary hypertension, unspecified; R79.89 Other specified abnormal findings of blood chemistry | CPT/HCPCS: 99223 ==

== ENCOUNTER 2025-02-21 11:15 | Outpatient (REF) | payer MEDICARE, SELFPAY ==
[2025-02-21 13:52] LABS: Anion Gap 16 (12-20); Blood Urea Nitrogen 46 mg/dL (9-16); Calcium 9.5 mg/dL (8.4-10.2); Carbon Dioxide 22 mmol/L (22-29); Chloride 103 mmol/L (96-108); Estimated Glomerular Filt Rate 26; Potassium 3.7 mmol/L (3.3-5.1); Sodium 137 mmol/L (135-145)
--- OUTSIDE RECORDS SUMMARY | 2025-02-21 14:22 | XMS_ITS | Encounter Summary ---
Author Organization [facility] Address [address] [place] [id number] Phone Care Team Providers Care File Conversion Operator Name Role Phone CatieJl damon Primary Care Provider [phone] Reason for Referral * Home Health Care - New Request Specialty Diagnoses / Procedures Referred By Boubacar falk Referred To Contact Home Health Services Marisela Monsivais MD [address] [place] [address] Phone: tel: [facility] [address], [place] Phone: tel: fax: Referral ID Status Reason Start Date Expiration Date V isits Requested Visits Authorized [id number] New Request 02/20/2025 02/20/2026 1 1 Encounter Details Date Type Department Care Team (Late st Contact Info) Description 02/20/2025 Orders Only [facility] [address] [place] [address] Sol Orta MD [address] [place] [id number] Social History Tobacco Use Types Packs/Day Years [...] as of this encounter Plan of Treatment Scheduled Referrals Name Type Priority Associated Diagnoses Orde r Schedule 4NEXT REFERRAL TO HOME HEALTH Outpatient Referral Routine Ordered: 02/20/2025 documented as of this encounter Visit Diagnoses Not on filedocumented in this encounter Care Teams File Conversion Operator Relationship Specialty Start Date End Date Jl Hameed DO PCP - General 04/29/17 documented as of this encounter Additional Source Comments The information contained in this document represents components of the legal health record. It is not the complete legal health record.[facility]
--- OUTSIDE RECORDS SUMMARY | 2025-02-21 14:22 | XMS_ITS | Encounter Summary ---
Author Organization [facility] Address [address] [place] [address] Phone Care Team Providers Care Provider Network Manager Name Role Phone Jl Hameed DO Primary Care Provider [phone] Encounter Details Date Type Department Care Team (Late st Contact Info) Description 10/02/2019 Transcribe Orders [facility] [address] [place] [id number] Dawood Allred MD [address] [place] [address] Iron deficiency anemia secondary to blood loss [...] EDT) WBC 4.20 4.00 - 11.00 K/uL [facility] Comment:Note Reference Range updates to all CBC and Differential results. RBC 4.28 3.72 - 5.30 M/uL [facility] HGB 10.3(L) 11.4 - 15.9 g/dL [facility] Comment:Note updated Referen ce Ranges for all CBC and Differential results. HCT 33.9(L) 34.2 - 46.8 % [facility] PLT 335 140 - 430 K/uL [facility] MCV 79.2 78.0 - 97.0 fL [facility] MCH 24.1(L) 25.0 - 33.0 pg [facility] MCHC 30.4(L) 32.0 - 36.0 g/dL [facility] RDW 17.7(H) 11.0 - 16.0 % [facility] MPV 10.8 8.4 - 12.8 fl [facility] NRBC 0.00 0 /100 WBCs [facility] ABSOLUTE NRBC 0.00 0 K/uL [facility] DIFF METHOD Auto [facility] NEUTS 58.1 43.0 - 75.0 % [facility] LYMPHS 26.0 18.2 - 47.4 % [facility] MONOS 10.0 4.00 - 11.00 % [facility] EOS 4.5 0.0 - 8.0 % [facility] BASOS 1.2 0.0 - 2.0 % [facility] Granulocytes, immature (%) 0.2 0.0 - 0.9 % [facility] ABSOLUTE NEUTS 2.44 1.80 - 7.70 K/uL [facility] ABSOLUTE LYMPHS 1.09 1.00 - 3.10 K/uL [facility] ABSOLUTE MONOS 0.42 0.20 - 0.80 K/uL [facility] ABSOLUTE EOS 0.19 0.00 - 0.80 K/uL [facility] ABSOLUTE BASOS 0.05 0.00 - 0.09 K/uL [facility] Granulocytes, immature 0.01 0.00 - 0.05 K/uL [facility] Blood 10/02/2019 11:0 9 AM EDT 10/02/2019 11:23 AM EDT us Dawood Allred MD LAB BLOOD ORDERABLES Final Result [facility] [address] [place] [address] * Ferritin (10/02/2019 11:09 AM EDT) FERRITIN 36 13 - 150 ug/L [facility] Blood 10/02/2019 11:0 9 AM EDT 10/02/2019 11:23 AM EDT us Dawood Allred MD LAB BLOOD ORDERABLES Final Result Performing Organization Address [facility]/ZIP Co de Phone Number [address] [address] * (ABNORMAL) Iron and iron binding capacity (10/02/2019 11:09 AM EDT) IRON 32 30 - 160 ug/dL [facility] IRON BINDING CAPACITY 343 228 - 428 ug/dL [facility] TRANSFERRIN SATURAT. 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 It is not the complete legal health record.[facility]
--- OUTSIDE RECORDS SUMMARY | 2025-02-21 14:22 | XMS_ITS | Data Portability ---
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 MUST MEET 2 OUT OF [...] Organization Details Last Modified Time Details Appointments Hospital F/U 2024 03:00P BELEN SPENCER Not available Not available Not available Lab iron + TIBC + ferritin, serum 2024 025 [facility], [address] [place] [address], [place], [address], 12/18/2024 15:13:38 CBC w/ auto diff 2024 025 [facility], [address] [place] [address], [place], [address], 12/18/2024 15:13:38 uric acid, serum or plasma 2024 025 [facility], [address] [place] [address], [id number], 12/18/2024 15:13:38 SAMMY + rf (antinucl ear antibodie s + rheumatoi d factor), quantitat marsha, serum 2024 025 [facility], [address] [place] [address], [id number], 12/20/2024 15:05:33 ESR (erythroc yte sedimenta tion rate), blood 2024 025 [facility], [address] [place] [address], [id number], 12/18/2024 15:13:38 C reactive protein, QN, serum or plasma 2024 025 [facility], [address] [place] [address], [id number], 12/18/2024 15:13:38 CK (creatine kinase), total, serum 2024 025 [facility], [address] [place] [address], [id number], 12/18/2024 15:13:38 CBC 2024 025 [facility], [address] [place] [address], [address], 10/09/2024 11:41:17 iron + TIBC + ferritin, serum 2024 025 [facility], [address] [place] [address], [address], 10/09/2024 11:41:17 lipid panel, blood 2023 024 [facility], [address] [place] [address], [id number], 05/19/2024 13:35:18 CBC w/ auto diff 2023 024 [facility], [address] [place] [address], [id number], 05/19/2024 13:35:18 CMP, serum or plasma 2023 024 [facility], [address] [place] [address], [address], 05/19/2024 13:35:18 Referral None recorded. Procedures None recorded. Surgeries None recorded. Imaging XR, knee, 3 view 2024 025 [facility] (Imaging), [address] [place] [address], [address], 09/05/2024 16:01:33 Medication Orders meloxicam 7.5 mg tablet 2024 025 [facility] [id number], [address] [place] [address], [id number], 10/06/2024 15:47:29 Patient TargetsNo targets recorded. Patient Instructions Encounter Date Encounter Id Patient Instructions Last Modified By Organization Details Last Modified Time 12/20/2023 [id number] polymyalgia rheumatica: care instructions Not available 12/20/2023 14:20:50 anemia: care instructions Not available 12/20/2023 14:20:50 iron deficiency anemia: care instructions Not available 12/20/2023 14:20:50 03/27/2024 [id number] advance care planning: care instructions Not available 03/27/2024 14:40:47 Discussed and explained advance directives such as standard forms to the . Face to face discussion lasted for a duration of ___ minutes. [email or web address] Not available 03/22/2024 10:07:08 10/06/2024 [id number] managing nausea from cancer treatment: care instructions Not available 10/06/2024 15:51:37 anemia: care instructions Not available 10/06/2024 15:51:37 Reason for Referral None Reported. Results Created Date Observation Date Name Description Value Unit Range Abnormal Flag Note LastModifiedBy Organization Detail LastModifiedTime 12/29/19 24 12/15/2023 imagi ng/di agnos tic resul t No observ ation record ed. rtry [facility] [address] [facility], [place], [address], 12/29/2023 15:03:51 09/06/19 25 09/05/2024 XR, knee, 3 view No observ ation record ed. [email or web address] [place] [address] (Medical Records) [address] [place], [address], 09/06/2024 13:43:52 02/19/2002/18/2025 XR, chest , 2 view No observ ation record ed. [address] (Medical Records) [address] [place], [address], 02/19/2025 08:05:48 02/20/2002/18/2025 imagi ng/di agnos tic resul t No observ ation record ed. [address] (Medical Records) [address] [place], [address], 02/19/2025 08:07:16 Result Notes None recorded. Problems Name Problem SNOMED Code Status Onset Date Resolution Date Notes Provider Name and Address Organization Details Recorded Time Disorder of breast 59655002 Active 2017 Cancer , lymph nodes taken out, Chemo/ Radiat ion Vero shen [facility] 8 12:25:35 Migraine 76958595 Active 2017 Vero shen [facility] 8 12:26:02 Gastroeso phageal reflux disease 089337655 Active 2017 Vero shen [facility] 8 12:26:10 Restless legs syndrome 20524835 Active 2017 Vero shen [facility] 8 12:26:28 Hyperlipi demia 03947575 Active 2017 [facility] 8 12:26:54 Dizziness 723617685 Active 2017 Jl Hameed, DO [address] [place] [address], [address], [facility] 8 14:10:15 Diverticu losis of sigmoid colon 945074679 Active 2018 Jl Hameed, DO [address] [place] [address], [address], [facility] 9 15:05:26 Iron deficienc y anemia 75353536 Active 2018 Jl Hameed DO [address] [place] [address], [address], [facility] 5 23:18:53 Bilateral osteoarth ritis of knees 939704230968 107 Active 2019 Jl Hameed, DO [address] [place] [address], [address], [facility] 0 13:44:31 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 Jl Hameed DO [address] [place] [address], [address], [facility] 0 14:54:51 Closed fracture of malar AND/OR maxillary bones 03342296 Active 2019 Jl Hameed DO [address] [place] [address], [address], [facility] 0 14:56:18 Polymyalg ia rheumatic a 41381719 Active 2021 Jl Hameed DO [address] [place] [address], [address], [facility] 2 13:37:53 Myalgia/m yositis - multiple 558691504 Active 2021 BELEN BEGUM [address] [place] [address], [address], [facility] 2 15:33:50 Tremor 56304894 Active 2022 Jl Hameed, DO [address] [place] [address], [address], [facility] 3 15:17:14 Acute urinary tract infection 971787029 Active 2022 Jl Hameed DO [address] [place] [address], [address], [facility] 3 11:26:31 Stomach cramps 52084156 Active 2022 Jl Hameed DO [address] [place] [address], [address], [facility] 3 09:36:53 Atrial tachycard ia 428824385 Active 2022 Jl Hameed DO [address] [place] [address], [address], [facility] 3 09:37:39 Unsteady when walking 92338047 Active 2022 Jl Hameed DO [address] [place] [address], [address], [facility] 3 09:38:19 Nausea, vomiting and diarrhea 4405016 Active 2022 BELEN BEGUM [address] [place] [address], [address], [facility] 3 15:29:32 Liver function tests outside reference range 815088847 Active 2022 BELEN BEGUM [address] [place] [address], [address], [facility] 3 11:01:05 Abdominal pain 97934748 Active 2022 BELEN BEGUM [address] [place] [address], [address], [facility] 3 11:11:43 Cyst of uterus 646645 Active 2022 Jl Hameed, DO [address] [place] [address], [address], [facility] 3 10:42:25 Urinary incontine mie 018477098 Active 2022 Jl Hameed, DO [address] [place] [address], [address], [facility] 3 10:51:28 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 2022 Jl Hameed, DO [address] [place] [address], [address], [facility] 3 22:13:57 Acute upper gastroint estinal hemorrhag e 32211374 Active 2022 Jl Hameed DO [address] [place] [address], [address], [facility] 3 22:14:28 Anemia 089177361 Active 2022 Jl Hameed, DO [address] [place] [address], [address], [facility] 3 22:15:19 Bilateral hearing loss 71046411 Active 2022 BELEN BEGUM [address] [place] [address], [address], [facility] 3 15:04:21 Melena 1924380 Active 2022 BELEN BEGUM [address] [place] [address], [address], [facility] 3 10:41:10 Inappropr iate sinus tachycard ia 889650536 Active 2022 Jl Hameed DO [address] [place] [address], [address], [facility] 3 10:16:50 Gastroint estinal hemorrhag e 92156106 Active 2022 Jl Hameed DO [address] [place] [address], [address], [facility] 3 13:45:49 Recurrent urinary tract infection 007567806 Active 2023 Jl Hameed, DO [address] [place] [address], [address], [facility] 4 16:46:48 Synovial cyst of left knee 647032102983 102 Active 2023 Jl Hameed, DO [address] [place] [address], [address], [facility] 4 12:37:49 Dysuria 13251282 Active 2023 Jl Hameed DO [address] [place] [address], [address], [facility] 4 11:26:29 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 022156337 Active 2023 Jl Hameed DO [address] [place] [address], [address], [facility] 4 16:07:14 Allergic reaction to drug 033048027 Active 2023 BELEN BEGUM [address] [place] [address], [address], [facility] 4 14:05:39 Facial eczema 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 Active 2023 Jl Hameed DO [address] [place] [address], [address], [facility] 4 16:25:32 Disorder of vitamin B12 931363466 Active 2023 Jl Hameed DO [address] [place] [address], [address], [facility] 4 16:32:02 Eczema 96160931 Active 2023 Jl Hameed DO [address] [place] [address], [address], [facility] 4 14:35:51 Contusion of right forearm 483002761445 17438 Active 2024 Jl Hameed DO [address] [place], [address], [facility] 5 13:49:20 Pain of left knee joint 853538765567 107 Active 2024 Jl Hameed DO [address] [place], [address], [facility] 5 13:50:12 Effusion of joint of right knee 513160871236 104 Active 2024 BELEN BEGUM [address] [place] [address], [address], [facility] 5 14:59:43 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 915635498 Active 2024 BELEN BEGUM [address] [place] [address], [address], [facility] 5 15:00:54 Pain of knee region 2041810344 Active 2024 BELEN BEGUM [address] [place] [address], [address], [facility] 5 16:19:23 Pain of right knee joint 733265809360 100 Active 2024 BELEN BEGUM [address] [place] [address], [address], [facility] 5 14:12:53 Problem Notes None recorded. Procedures Surgical History Date Name Laterality Status Provider Name and Address Organization Details Recorded Time Knee Surgery completed [facility] 07/13/2017 12:27:53 Knee Surgery completed [facility] 07/13/2017 12:28:28 Cholecystectomy completed [facility] 07/13/2017 12:29:02 Imaging Results None recorded. Procedure Notes None recorded. Medical Equipment None Reported. Allergies Allergen ID Allergen Name Allergen Category Reaction Reaction Severity Criticality Documentation Date Start Date Code Code System Note Provider Name and Address Organization Details Recorded Time Dee Taylor medicatio n Not available Not available Not available 02/01/2018 40029 1 RxNorm leg pain, sleep ing all the time [facility] 8 13:32:10 550 gabapenti n medicatio n Not available Not available Not available 07/13/2017 07531 RxNorm Light head, numbn ess in hands [facility]ero she[facility] 8 12:22:40 551 Product containin g penicilli n (product) medicatio n Not available Not available Not available 07/13/2017 46428 [facility]ero [facility] 8 12:22:54 552 Product containin g 3-hydroxy -3-methyl glutaryl- coenzyme A reductase inhibitor (product) medicatio n Not available Not available Not available 07/13/2017 23056 [facility] 8 12:23:15 553 Levaquin medicatio n Not available Not available Not available 07/13/2017 59778 2 [facility] 8 12:23:26 8253 Gemtesa medicatio n rash Not available Not available 12/06/20232023 13949 16 [facility] 4 13:44:53 8254 Substance with sulfonami de structure and antibacte rial mechanism of action (substanc e) medicatio n Not available Not available Not available 12/06/2023 99633 8003 SNOMED BELEN BEGUM [address] [place], [address], [facility] 4 14:06:19 Medications Name Sig Start [...] 1 CAPSULE BY MOUTH EVERY 6 HOURS 01/13 /2023 completed Not Available Not Available Not Available [...] Relief 50 mcg/actuati on nasal spray,suspe nsion Nursery 1 spray every day by intranasa l route for 30 days. 10/02 completed Not Available Not Available Not Available Shingrix (PF) 50 mcg/0.5 mL intramuscul ar suspension, kit 07/09 completed Not Available Not Available Not Available Fluad Quad 1594-2077(6 5yr up)(PF) 60 mcg (15 mcg x [...] Updated DateTime 09/05/2024 162.56 cm 24.4 kg/m2 89984.12 g 132/73 mm[Hg] Kell Deemond [facility] 09/05/2024 13:36:06 Date Recorded Body height Body mass index (BMI) Body weight Heart rate Oxygen saturation Oxygen saturation in Arterial blood by Pulse oximetry Systolic And Diastolic Provider Name and Address Organization Details Last Updated DateTime 5 162.56 cm 26.1 kg/m2 72090.4 g 80 /min 94 % 94 % 118/74 mm[Hg] Ashley Gerardo [facility] 5 14:48:53 Date Recorded Body height Body mass index (BMI) Body weight Heart rate Oxygen saturation Oxygen saturation in Arterial blood by Pulse oximetry Systolic And Diastolic Provider Name and Address Organization Details Last Updated DateTime 4 162.56 cm 25.5 kg/m2 39870.4 7 g 74 /min 99 % 99 % 140/86 mm[Hg] Alexx Arellano [facility] 4 13:51:21 Date Recorded Body height Body mass index (BMI) Body weight Heart rate Oxygen saturation Oxygen saturation in Arterial blood by Pulse oximetry Systolic And Diastolic Provider Name and Address Organization Details Last Updated DateTime 162.56 cm 24.5 kg/m2 66517.7 1 g 74 /min 99 % 99 % 162/84 mm[Hg] Jl Hameed, DO [address] [place], [address] 4 14:05:31 Social History Question Answer Notes LastModified by Organizat ion Details LastModified Time Tobacco Smoking Status Former Smoker Not Available [employer] 02/27/2020 03:36:23 What Was The Date Of Your Most Recent Tobacco Screening? 09/05/2024 [email or web address] Information not available 09/05/2024 How Many Years Have You Smoked Tobacco? 12 [id number] Information not available 02/27/2020 Sex: Unknown Functional [...] Time Tdap 03/23/20 20 completed Radha shen [facility] 01/06/2021 14:52:31 Pneumococcal conjugate PCV 13 02/25/20 17 completed Michelle shen [facility] 01/06/2021 14:58:01 COVID-19, mRNA, LNP-S, PF, 100 mcg/0.5mL dose or 50 mcg/0.25mL dose 06/26/19 21 completed Michelle shen [facility] 01/06/2021 14:58:48 COVID-19, mRNA, LNP-S, PF, 100 mcg/0.5mL dose or 50 mcg/0.25mL dose 05/28/19 21 completed Jl Hameed DO [address] [place] [address], [address], [facility] 07/14/2021 16:25:57 COVID-19, mRNA, LNP-S, PF, 100 mcg/0.5mL dose or 50 mcg/0.25mL dose 04/07/20 21 completed Jl Hameed DO [address] [place] [address], [address], [facility] 07/14/2021 16:26:04 Influenza, split virus, quadrivalent, preservative 04/07/20 21 completed Michelle shen [facility] 09/26/2021 09:34:49 influenza, unspecified formulation 04/03/20 22 completed Jl Hameed DO [address] [place] [address], [address], [facility] 05/15/2022 14:49:17 Influenza, split virus, quadrivalent, preservative 02/17/20 18 anat shen [facility] 06/08/2018 14:33:06 pneumococcal polysaccharide PPV23 06/25/19 19 completed Jl Hameed DO [address] [place] [address], [address], [facility] 06/25/2018 10:41:36 zoster live 11/05/19 19 completed Jl Hameed DO [address] [place] [address], [address], [facility] 11/05/2018 10:43:34 zoster live 01/14/20 19 completed Lyric shen [facility] 01/16/2019 08:06:43 Influenza, adjuvanted, trivalent, PF 01/29/20 19 [facility] 01/30/2019 12:01:02 Influenza, split virus, quadrivalent, preservative 01/29/20 20 completed Jl Hameed DO [address] [place] [address], [address], [facility] 04/16/2020 14:30:36 Influenza, split virus, quadrivalent, preservative 02/19/20 17 completed [facility] 07/13/2017 13:26:49 Past Encounters Encounter ID Performer Location Encounter Start Date Encounter Closed Date Diagnosis/Indication Diagnosis SNOMED-CT Code Diagnosis ICD10 Code Diagnosis IMO Codes Diagnosis Note [id number] Jl Hameed [facility] [address] [facility] [address] 08/16/2017 13:33:31 08/16/2017 14:10:36 Chronic kidney disease stage 2 440965746 N18.2 unclear etiology, has been present since at least 07/2015, though her older records are in a second volume. will recheck labs, reccommend being very well hydrated handwritte n lab for CMP, lipids, cbc will need to pull second volume to determine when sx started Liver func tion tests outside reference range 253765640 R94.5 handwritte n lab for CMP, lipids, cbc, hcv, hbv Generalize d anxiety disorder 48623138 F41.1 on fluoxetine , for many years Restless l egs syndrome 50332375 G25.81 takes lyrica with good effect Upper resp iratory infection 69108072 J06.9 likely viral, recommend fluids, rest, mucinex-dm , sx likely will last 7-10 days, f/u if sx worsen or persist there after. [id number] Jl Hameed [facility] [address] [facility] [place] [address] 02/01/2018 13:22:59 02/01/2018 14:08:40 Chronic kidney disease stage 2 754261177 N18.2 unclear etiology, has been present since at least 07/2015, though her older records are in a second volume. will recheck labs, reccommend being very well hydrated worsened in july labs, will recheck will dc prilosec due to possible renail impairment Liver func tion tests outside reference range 840742575 R94.5 improved in july labs Generalize d anxiety disorder 54550236 F41.1 on fluoxetine , for many years Restless l egs syndrome 24731789 G25.81 will check levels today lykobya has been d/cd will trial clonazepam Hyperlipidemia 07831598 E78.5 borderline , will recheck Gastroesop hageal reflux disease 979866245 K21.9 [id number] Jl Hameed [facility] [address] [facility],[place] [address] 02/23/2018 13:33:51 02/23/2018 14:24:06 Depressive disorder 11172285 F32.0 stable migraines also stable Unintentio nal weight loss 632345403 R63.4 with abdominal pain and anemia wgt loss >40lbs Iron defic iency anemia 46625683 D50.9 [id number] Jl Hameed [facility] [address] [facility],[place] [address] 03/11/2018 11:10:51 03/11/2018 13:27:39 Anemia 812897776 D64.9 will cont with iron until eval as below Epigastric pain 07154217 R10.13 will need to have GI eval and will need EGD etc and colonoscop y given the patients sgt loss of 40 lbs and anemia and evidence of gastric abnormalit y Mass of ri ght adrenal gland 4996314403 8329257 E27.8 per radiologis t needs the ulstrasoun d done to confirm cyst [id number] Jl Hameed [facility] [address] [facility], [place] [address] 06/08/2018 14:06:13 06/08/2018 15:18:39 Adult health examination 073972255 Z00.00 Abdominal pain 34956352 R10.9 believe this from diverticul osis not itis and that she just has some smoulderin g inflammati on this would also explain her mild anemia with no evid or source of bleed Iron defic iency anemia 39779440 D50.9 need to rechk levels she is taking iron daily this also acccounts for her RLS getting better Diverticul osis of sigmoid colon 933551945 K57.30 sanchez adjust her diet and add slowly metamucil [id number] Jl Hameed [facility] [address] [facility], [place] [address] 07/13/2018 13:57:33 07/13/2018 14:44:23 Malaise and fatigue 098152109 R53.83 wondering if her blood count has dropped again worried that she is bleeding again recheck cbc iron etc Iron defic iency anemia 52648777 D50.9 need to rechk levels she is taking iron daily but this may not be enough her RLS are back again and is usu indicative of low iron Restless l egs syndrome 97162880 G25.81 check iron [id number] Jl Hameed [facility] [address] [facility], [place] [address] 07/22/2018 11:43:48 07/22/2018 15:27:37 Iron deficiency anemia 10764967 D50.9 is from a gi bleed as evidenced from her heme positive occult stool cards X3 will need to be seen again by dr deon barnes and will need rescope and perhaps egd if thoughts of upper gi source poss [id number] Jl Hameed [facility] [address] [facility], [place] [address] 12/28/2018 14:42:44 12/28/2018 15:14:54 Cough 46856475 R05 doesn't seem infection, suspect allergies/ PND will r/o atypical pna - get cxr Allergic rhinitis 955336 04 J30.9 allergy treatments Insomnia 728117578 G47.0 0 perhaps xyzal will help with this trial for a couple weeks and see if further treatment is needed [id number] Jl Hameed [facility] [address] [facility] [address] 07/10/2019 13:28:38 07/10/2019 14:03:55 Adult health examination 518158351 Z00.01 she has gained some weight back thankfully Iron defic iency anemia 13405618 D50.9 is from a gi bleed as evidenced from her heme positive occult stool cards X3 she feels markedly better after the IRON infusions will need to be seen again by dr deon barnes and will be followed [id number] Jl Hameed [facility] Internal [facility] [address] [facility], [place] [facility] [place] [address] 10/03/2019 15:17:44 10/03/2019 16:27:14 Pain of right calf [id number] 796539 M79.661 the patient reports swelling, warmth in the right calf and tenderness to palpation Edema of l ower extremity 478874492 R60.0 swelling of bilateral knees will send back to ortho [id number] Jl Hameed [facility] Internal Medicine [address] [facility],[place] [facility] [place] [address] 01/08/2020 13:28:57 01/08/2020 14:18:35 Hyperlipidemia 54927862 E78.5 will rechk at next lab Iron defic iency anemia 53357311 D50.9 is from a gi bleed as evidenced from her heme positive occult stool cards X3 she feels markedly better after the IRON infusions has finished her iron infusions but will follow the hematologi st in 3 mo will need to be seen again by dr lynda barnes and will be followed Diverticul osis of sigmoid colon 953512619 K57.30 sanchez adjust her diet and add slowly metamucil Prerenal azotemia 450134 001 N25.9 [id number] Jl Hameed [facility] Internal Medicine [address] [place] [address] 03/27/2020 13:25:39 03/27/2020 13:56:50 Migraine 49629360 G43.909 helped with the sumatripta n, increased after the injury Dizziness 207039483 R42 the patient doing much better today Vertigo 715375034 R42 [place] [id number] Jl Hameed [facility] Internal Medicine [address] [facility],[place] [address] 04/16/2020 14:08:59 04/16/2020 15:14:12 Dizziness 885878175 R42 part of her post concussion synd Iron defic iency anemia 83236828 D50.9 is from a gi bleed as evidenced from her heme positive occult stool cards X3 she feels markedly better after the IRON infusions has finished her iron infusions but will follow the hematologi st in 3 mo will need to be seen again by dr lynda barnes and will be followed Gastroesop hageal reflux disease 384087041 K21.9 stable on current meds 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 relates is slowly getting better but still has some lingering symptoms and Closed fra cture of malar AND/OR maxillary bones 36111549 S02.400A slowly healing and doing better ent and dental both feel no surgery is needed [id number] Jl Hameed [facility] Internal Medicine [address] [facility],[place] [address] 08/26/2020 13:25:05 08/26/2020 14:40:35 Iron deficiency anemia 89362076 D50.9 is from a gi bleed as [...] cbc decreases Diverticul osis of sigmoid colon 790014253 K57.30 has adjust her diet and cont metamucil Dizziness 687315502 R42 finally resolved now post concuss [id number] Jl Hameed [facility] Internal Medicine [address] [place] [address] 01/08/2021 13:20:59 01/08/2021 14:46:00 Mass of right adrenal gland 0328538577 8060431 E27.8 per radiologis t needs the ulstrasoun d done to confirm cyst Depressive disorder 3548 9007 F32.0 stable migraines also stable Closed fra cture of malar AND/OR maxillary bones 15760157 S02.400A slowly healing and doing better ent and dental both feel no surgery is needed Iron defic iency anemia 80219955 D50.9 is from a gi bleed as [...] she usu knows when cbc decreases Hyperlipidemia 69703942 E78.5 will rechk at next lab Gastroesop hageal reflux disease 162027559 K21.9 stable on current meds Bilateral osteoarthritis of knees 3759322851 74128 M17.0 having pain around prosthetic swe will try some meloxicam [id number] Jl Hameed, [facility] Internal Medicine [address] [facility],[place] [address] 05/14/2021 08:12:09 05/16/2021 13:11:42 Iron deficiency anemia 86789741 D50.9 she feels a little better after [...] a GI specialist Restless l egs syndrome 92625540 G25.81 check iron Diverticul osis of sigmoid colon 061715677 K57.30 has adjust her diet and cont metamucil Mass of ri ght adrenal gland 8327053107 8442961 E27.8 per radiologis t needs the ultrasound done to confirm cyst Depressive disorder 3548 9007 F32.0 stable migraines also stable Closed fra cture of malar AND/OR maxillary bones 60808742 S02.400A stable and doing better ent and dental both feel no surgery is needed Migraine 07281205 G43.90 9 has been stable but ran out of sumatripta n [id number] Jl Hameed [facility] Internal Medicine [address] [facility],[place] [facility] [address] 07/14/2021 16:17:28 07/15/2021 11:02:41 Diverticulosis of colon 744073874 K57.30 cont to improve and eating good and bowels are much better she will call andreas if her pain returns in her LLQ or fever or both [id number] Jl Hameed [facility] Internal Medicine [address] [facility],[place] [address] 09/26/2021 15:51:14 09/26/2021 16:24:35 Hyperlipidemia 68979742 E78.5 will rechk at next lab Gastroesop hageal reflux disease 628269757 K21.9 stable on current meds Iron defic iency anemia 30954572 D50.9 doing much bettereati ng better PRIOR [...] a GI specialist Advance care planning 71 5576930 Z71.89 done [id number] Jl Hameed [facility] Internal Medicine [address] [facility],[place] [address] 12/19/2021 13:31:27 12/19/2021 14:33:24 Migraine 73680182 G43.909 has been stable but ran out of sumatripta n Advance care planning 71 7605458 Z71.89 Has on file with [facility] Polymyalgi a rheumatica 61520868 M35.3 we will begin to slowly taper the prednisone will have been on pred 40mg for one month on dec 5will decrease to 35 mg after the weekend and see how she doeswill get an esr after a couple [id number] Jl Hameed [facility] Internal Medicine [address] [facility], [place] [address] 01/16/2022 16:17:09 01/19/2022 09:59:46 Polymyalgia rheumatica 88793552 M35.3 she feels great and is doing wonderfule sr was 80 and is now down to 4appetite is too good Bilateral osteoarthritis of knees 6143828396 67321 M17.0 is feeling great Diverticul osis of sigmoid colon 091960802 K57.30 has adjust her diet and cont metamucil Gastroesop hageal reflux disease 076885311 K21.9 stable on current meds Iron defic iency anemia 14613510 D50.9 doing much bettereati ng better PRIOR [...] to have her see a GI specialist [id number] Jl Hameed [facility] Internal Medicine [address] [facility], [place] [address] 03/16/2022 15:06:22 03/16/2022 15:38:34 Polymyalgia rheumatica 49692335 M35.3 she feels great and is doing wonderfule sr was 80 and is now down to 4 and last week 7 so is down to her last dose and now dc we will rechk a esr in few weeksappet ite is too good she will call if her sx return and we will do quick pred pulse dosewill see in spring Jl Hameed DO [facility] Internal Medicine [address] [facility], [place] [address] 05/15/2022 14:37:24 05/15/2022 15:28:13 Iron deficiency anemia 91805880 D50.9 now her symptoms are mimicing her prior severe iron def anemia we will check lab now and have her see dr lynda johns 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 per radiologis t needs the ultrasound done to confirm cyst Polymyalgi a rheumatica 97955199 M35.3 she feels great and is doing wonderfule sr was 80 and is now down to 4 and last week 7 so is down to her last dose and now dc we will rechk a esr in few weeksappet ite is too good she will call if her sx return and we will do quick pred pulse dosewill see in spring Depressive disorder 9201 9007 F32.0 stable migraines also stable Closed fra cture of malar AND/OR maxillary bones 30636087 S02.400A stable and doing better ent and dental both feel no surgery is needed Advance care planning 71 4428801 Z71.89 Has on file with [facility] [id number] Jl Hameed [facility] Internal Medicine [address] [facility],[place] [address] 07/01/2022 14:20:51 07/01/2022 15:27:01 Polymyalgia rheumatica 52716575 M35.3 she feels great and is doing [...] see in spring Advance care planning 71 7198622 Z71.89 Has on file with [facility] Iron defic iency anemia 86117477 D50.9 now wondering if iron def has returned and is causing the tremor in handswe will rechk in lab now Tremor 36792156 R25.1 unsure etiol could be from iron def or ?pred taper ? no med that are new etcwill chk lab now if the labe is negative then we should try a beta clifford [id number] Jl Hameed DO [facility] Internal Medicine [address] [facility],[place] [employer] [place] [address] 08/11/2022 10:24:40 08/11/2022 12:19:51 Adult health examination 788429167 Z00.00 has noticed increased fatigue as of late Acute urin mahesh tract infection 186122370 N39.0 Atrial fibrillation 4943 6004 I48.91 will initiate metoprolol and put her on asa until definitive dx we obtained tentative dx by exam and by Esmer [id number] Jl Hameed [facility] Internal Medicine [address] [place] [address] 08/28/2022 09:00:48 08/28/2022 11:10:24 Iron deficiency anemia 66341219 D50.9 cbc normal iron level is also goodwillst op iron supp she has been having GI upset Stomach cramps 57245705 R10.9 prob secondary to sulfa med now feels better Atrial tachycardia 74465 6006 I47.1 we will have her cont the metoprolol low dose and see her in october Unsteady when walking 22 871310 R26.89 will get a eval done [id number] Jl Hameed [facility] Internal [address],[place] [address] 09/14/2022 09:12:26 09/14/2022 11:23:12 Abdominal pain 98126537 R10.11 start on dicyclomin e 20 mg TID and nausea she will continue zofran Nausea, vo miting and diarrhea 2572809 R11.2 elevated LFTs, protein and signs of anemia; concern for biliary symptom problem [id number] Jl Hameed [facility] Internal [address],[place] [address] 10/02/2022 15:40:40 10/02/2022 16:24:29 Pre-surgery evaluation 927370110 Z01.818 The patient was seen in the office today for pre-op evaluation . All medical conditions on patient's problem list were addressed and are currently stable, no interventi on needed at this time. Based on history and physical performed, the patient is cleared for surgery. [id number] Jl Hameed [facility] Internal Medicine [address] [place] [address] 11/20/2022 08:00:16 11/20/2022 14:17:23 Polymyalgia rheumatica 80216895 M35.3 she feels great and is doing wonderfuln o longer on prednisone she will call if her sx return and we will do quick pred pulse dosewill see in spring Gastroesop hageal reflux disease 023169968 K21.9 stable on current meds Cyst of uterus 183497 N 88.8 did well with surgery and no major issues was 12cm in size Diverticul osis of sigmoid colon 110101405 K57.30 has adjust her diet and cont metamucil Urinary incontinence 165 349525 R32 going to a incont clinic at [facility] Bilateral osteoarthritis of knees 7905988743 63912 M17.0 we will provid cor t inj when she is ready [id number] Jl Hameed DO [facility] Internal Medicine [address] [facility], [place] [address] 12/25/2022 08:04:46 12/25/2022 15:24:45 Acute upper gastrointestinal hemorrhage 27367398 K92.1 will set up with recheck BW Gastroesop hageal reflux disease 773557569 K21.9 stable Hyperlipidemia 85102958 E78.2 stable Iron defic iency anemia 20943990 D50.9 stable Bilateral hearing loss 57203118 H90.5 referral sent [id number] Jl Hameed DO [facility] Internal Medicine [address] [facility], [place] [address] 02/22/2023 09:47:49 02/22/2023 10:59:43 Bilateral osteoarthritis of knees 9607966964 44363 M17.0 she has a new stimulator doing well with it so far Iron defic iency anemia 91208392 D50.9 cbc normal if iron level is also goodwillst op iron supp she has been having GI upset Acute uppe r gastrointestinal hemorrhage 80446908 K92.1 no further bleedingno perlita Inappropri ate sinus tachycardia 742144334 I47.11 quiet nno issues [id number] Jl Hameed DO [facility] Internal Medicine [address] [facility], [place] [address] 04/21/2023 09:18:25 04/21/2023 15:17:48 Bilateral osteoarthritis of knees 8014638519 52287 M17.0 she has a new stimulator doing well with it so far Anemia 995123020 D64.9 will cont with iron until eval as below Inappropri ate sinus tachycardia 695914863 I47.11 quiet no issues Gastrointe stinal hemorrhage 33949915 K92.2 has had major work up after recent bleeding that required mult transfusio ns (at least 4)await results of video capsule [id number] Jl Hameed [facility] Internal Medicine [address] [facility],[place] [address] 07/26/2023 11:53:47 07/26/2023 14:25:43 Synovial cyst of left knee 3372489243 75337 M71.22 ruptured now resolving discussed care and ongoing tx Iron defic iency anemia 97469821 D50.9 doing fantastic with her iron infusions Acute urin mahesh tract infection 183578980 N39.0 now is asymptomat ictold her to use the lubricant every day [id number] Jl Hameed [facility] Internal Medicine [address] [facility], [place] [address] 12/06/2023 13:29:44 12/06/2023 14:45:24 Depression screening 332710154 Z13.31 SCREENING NEGATIVE Allergic r eaction to drug 182936157 T78.49XA will start on prednisone for the rash (allergic reaction)w ill set up wtih hydroxyzin e for the itch specifical ly [id number] Jl Hameed [facility] Internal Medicine [address] [facility] [place] [address] 12/20/2023 13:45:11 12/20/2023 14:22:27 Polymyalgia rheumatica 76877537 M35.3 she feels great and is doing wonderfuln o longer on prednisone she will call if her sx return and we will do quick pred pulse dosewill see in spring 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 and doing well with iron infusions Anemia 223320530 D64.9 will cont with iron until eval as below Iron defic iency anemia 90029078 D50.9 doing fantastic with her iron infusions [id number] Jl Hameed [facility] Internal Medicine [address] [facility],[place] [address] 03/27/2024 13:49:10 03/27/2024 14:44:29 Adult health examination 345061692 Z00.01 has noticed increased fatigue as of late Screening for cardiovascular system disease 228388717 Z13.6 Screening mammography 24 056457 Z12.31 not required 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 doing well Hyperlipidemia 98692307 E78.2 will rechk at next lab Iron defic iency anemia 34554745 D50.9 doing fantastic with her iron infusions has been stable at 12.2 the last few months skipping iron infusion this month per dr howell Eczema 46537649 L30.9 [id number] Jl Hameed [facility] Internal Medicine [address] [facility],[place] [address] 09/05/2024 13:29:17 09/05/2024 13:56:12 Hyperlipidemia 95484320 E78.2 will rechk at next lab Depression screening 171 820136 Z13.31 neg Iron defic iency anemia 07814953 D50.9 doing fantastic with her iron infusions has been stable at 13.5 the last few months skipping iron infusion this month per dr howell Contusion of right forearm 1363892156 7298177 S50.11XA 902366 noted healing but still sore will use tylenol prn Pain of le ft knee joint 7692423406 03288 M25.562 256305 [id number] Jl Hameed [facility] Internal Medicine [address] [facility],[place] [address] 10/06/2024 15:19:24 10/06/2024 16:01:25 Pain of left knee joint 8231584230 16562 M25.562 319578 cont with tylenoll for now melox helped but we need lab first Anemia 281953099 D64.9 will cont with iron until eval as below Disorder o f vitamin B12 198550951 E53.8 doing well Stomach cramps 52952069 R10.9 resolved Nausea, vo miting and diarrhea 1907837 R11.2 resolved [id number] Jl Hameed DO [facility] [address] [facility],[place] [address] 12/18/2024 14:08:51 12/18/2024 16:52:24 Effusion of joint of right knee 0497101989 32915 M25.693 2685713 will set up additional lab workon top of her regular lab work Iron defic iency anemia due to blood loss 250274038 D50.0 625581 will set up with lab work Health Concerns Section Related Observation LastModified by Organization Detai ls LastModified Time None Recorded Concern Status LastModified by Organization Details LastModified Time None Recorded Advance Directives Directive None Recorded Payers Insurance Date Sequence Insurance Name Policy Number Policy Barnhart Covered Member ID Barnhart Member ID Guarantor Name 12/15/2024 1 [place] [employer] Renita Ritchie [id number] Renita Ritchie 12/15/2024 2 [place] [id number] Renita Ritchie [id number] Renita Ritchie Notes Date Note Type [...] between breasts and is very itchy Jl Hameed DO [address] [facility], [place], [address], [facility] Internal Medicine 12/20/2023 14:21:08 03/27/20 24 [...] home.ROS as noted in the HPI feeling great Jl Hameed, DO [address] [place], [address], [facility] Internal Medicine 03/27/2024 14:42:23 09/06/19 25 [...] been in good shape by dr mynor Hameed, [address] [place] [address], [phone], [facility] Internal Medicine 09/05/2024 13:53:26 10/07/19 25 text/htm l Musculoskeletal PainReported by PatientHPIFor location, [...] has had 2 knee replacements so no mercedse injalso relates yasmany she is very tired as of late Jl Hameed DO [address] [place], [address], [facility] Internal Medicine 10/06/2024 15:52:29 12/19/19 25 text/htm l ROS as noted in the [...] ortho who does her injections BELEN BEGUM [address] [place] [address], [phone], [facility] 12/18/2024 15:07:41 OBGyn Episode No OBEpisode recorded.
--- OUTSIDE RECORDS SUMMARY | 2025-02-21 14:23 | XMS_ITS | Clinical Summary ---
Author Organization [facility] Address [address] [place] [address] Phone Care Team Providers Care Enamel Pulverizer Name Role Phone Jl Hameed DO Primary Care Provider [phone] Allergies Active Allergy Reactions Criticality Noted Date Comments Gabapentin 11/14/2020 Levofloxacin 06/26/2014 Other reaction(s): Unknown Penicillins Rash 03/04/2007 Pregabalin 11/14/2020 Fvikzvj-Oqg-Ozy Reductase Inhibitors 11/14/2020 Medications celecoxib (CELEBREX) 200 MG capsule celecoxib 200 mg capsule Active ferrous sulfate 325 mg (65 mg [place] iron) tablet Iron (ferrous sulfate) 325 mg [...] Encounters Date Type Department Care Team Description 02/20/2025 Orders Only [facility] [address] [place] [id number] Homehealth, Interface ProviderMD 12/19/2024 9:56 AM EDT - 12/19/2024 11:59 PM EDT Hospital Encounter [facility] [address] [place] [address] Sabrina Breen PA Discharge Disposition: Home or Self Care 12/19/2024 Transcribe Orders [facility] [address] [place] [address] Sabrina Breen PA Effusion of right knee [...] 03/10/2019 01/13/2019, 10/24 INFLUENZA VACCINE (#1) 2024 3, 04/14/2022, 04/07/2021, Additional history exists COVID-19 VACCINE [...] 9:58 AM EDT) SAMMY TITER 1:80 Homogeneous PROOF LO[employer] MECH[employer]IC [facility] 12/19/2024 9:58 AM EDT 12/19/2024 10:01 AM EDT us Sabrina GLOVER LAB BLOOD ORDERABLES Final Result [facility] [address] [place] [address] * (ABNORMAL) Iron and iron binding capacity (12/19/2024 9:58 AM EDT) IRON 23(L) 30 - 160 ug/dL [facility] IRON BINDING CAPACITY 226(L) 228 - 428 ug/dL [facility] TRANSFERRIN SATURAT. 10(L) 15 - 50 % [facility] Blood 12/19/2024 9:58 AM EDT 12/19/2024 10:01 AM EDT us Sabrina GLOVER LAB BLOOD ORDERABLES Final Result [address] [address] * (ABNORMAL) Sedimentation rate (ESR) (12/19/2024 9:58 AM EDT) ESR 76(H) 0 - 30 mm/h [facility] Blood 12/19/2024 9:58 AM EDT 12/19/2024 10:01 AM EDT us Sabrina GLOVER LAB BLOOD ORDERABLES Final Result Performing Organization Address City/[facility]/ZIP Co de Phone Number [address] [address] * (ABNORMAL) CBC and differential (12/19/2024 9:58 AM EDT) WBC 4.38 4.00 - 11.00 K/uL [facility] RBC 3.77(L) 4.00 - 5.20 M/uL [facility] HGB 10.4(L) 12.0 - 16.0 g/dL [facility] HCT 34.6(L) 36.0 - 46.0 % [facility] PLT 310 150 - 450 K/uL [facility] MCV 91.8 80.0 - 100.0 fL [facility] MCH 27.6 27.0 - 31.0 pg [facility] MCHC 30.1(L) 32.0 - 36.0 g/dL [facility] RDW 14.6(H) 11.5 - 14.5 % [facility] MPV 10.4 8.4 - 12.0 [facility] NRBC 0.00 0.00 /100 WBCs [facility] ABSOLUTE NRBC 0.00 0.00 K/uL [facility] DIFF METHOD Auto [facility] NEUTS 70.4 48.0 - 76.0 % [facility] LYMPHS 16.9(L) 18.0 - 41.0 % [facility] MONOS 10.0 4.0 - 11.0 % [facility] EOS 1.8 0.0 - 5.0 % [facility] BASOS 0.7 0.0 - 1.5 % [facility] Granulocytes, immature (%) 0.2 0.0 - 0.9 % [facility] ABSOLUTE NEUTS 3.08 1.92 - 7.60 K/uL [facility] ABSOLUTE LYMPHS 0.74 0.72 - 4.10 K/uL [facility] ABSOLUTE MONOS 0.44 0.16 - 1.10 K/uL [facility] ABSOLUTE EOS 0.08 0.00 - 0.50 K/uL [facility] ABSOLUTE BASOS 0.03 0.00 - 0.15 K/uL [facility] Granulocytes, immature 0.01 0.00 - 0.09 K/uL [facility] Blood 12/19/2024 9:58 AM EDT 12/19/2024 10:01 AM EDT Sabrina GLOVER LAB BLOOD ORDERABLES Final Result [address] [address] * Rheumatoid factor (12/19/2024 9:58 AM EDT) RHEUMATOID FACTOR <10.0 0.0 - 14.0 IU/ml [facility] Blood 12/19/2024 9:58 AM EDT 12/19/2024 10:01 AM EDT Sabrina GLOVER LAB BLOOD ORDERABLES Final Result Performing Organization Address City/[facility]/ZIP Co de Phone Number [address] [address] * (ABNORMAL) C-Reactive Protein (12/19/2024 9:58 AM EDT) C REACTIVE PROTEIN 62.4(H) 0.0 - 4.0 mg/L [facility] Blood 12/19/2024 9:58 AM EDT 12/19/2024 10:01 AM EDT Sabrina GLOVER LAB BLOOD ORDERABLES Final Result Performing Organization Address [facility]/ZIP Co de Phone Number [address] [address] * (ABNORMAL) Antinuclear antibody (SAMMY) (12/19/2024 9:58 AM EDT) SAMMY SCREEN ON HEP 2 Positive(A ) Negative [facility] Comment:An SAMMY Titer has bee n reflexed. The results will follow. Blood 12/19/2024 9:58 AM EDT 12/19/2024 10:01 AM EDT Sabrina GLOVER LAB BLOOD ORDERABLES Final Result Performing Organization Address [facility]/ZIP Co de Phone Number [address] [address] * Uric acid (12/19/2024 9:58 AM EDT) URIC ACID 4.6 2.4 - 7.0 mg/dL [facility] Blood 12/19/2024 9:58 AM EDT 12/19/2024 10:01 AM EDT Sabrina GLOVER LAB BLOOD ORDERABLES Final Result Performing Organization Address [facility] Co de Phone Number [address] [address] * CPK (creatine kinase) (12/19/2024 9:58 AM EDT) CREATINE KINASE 33 21 - 215 U/L [facility] Blood 12/19/2024 9:58 AM EDT 12/19/2024 10:01 AM EDT Sabrina GLOVER LAB BLOOD ORDERABLES Final Result [facility] [address] [place] [address] from Last 3 Months Insurance [place] [id number] [employer] MEDEX SUPPLEMENT MEDICARE PART A & B [employer] SUPPLEMENT MEDICARE PART A & B [employer] SUPPLEMENT MEDICARE PART A & B Member Subscriber Plan / Payer (Ef fective 2000-Present) Name:Renita Longoria Member ID:[id number] Relation to Subscriber:Self Name:Renita Longoria Subscriber ID:[id number] Payer ID:[id number] Group ID:Not on file Type:Medicare Address: [facility] [employer] [facility] [address] [place] [phone] [employer] MEDEX SUPPLEMENT MEDICARE PART A & B [facility] [employer] MEDEX SUPPLEMENT MEDICARE PART A & B [facility] [facility] [employer] MEDEX SUPPLEMENT MEDICARE PART A & B [employer] MED[employer] SUPPLEMENT MEDICARE PART A & B [employer] MED[employer] SUPPLEMENT MEDICARE PART A & B [facility] MEDEX SUPPLEMENT Care Teams Enamel Pulverizer Relationship Specialty Start Date End Date Jl Hameed DO [phone] (work) [email or web address] PCP - General 04/29/17 Additional Source Comments The information contained in this document represents components of the legal health record. It is not the complete legal health record.[facility]
--- OUTSIDE RECORDS SUMMARY | 2025-02-21 14:23 | XMS_ITS | Encounter Summary ---
Author Organization [facility] Address [address] [place] [address] Phone Care Team Providers Care College Athlete Name Role Phone Jl Hameed DO Primary Care Provider [phone] Encounter Details Date Type Department Care Team (Late st Contact Info) Description 04/14/2019 Transcribe Orders [facility] [address] [place] [id number] Dawood Allred MD [address] [place] [address] Anemia, unspecified type (Primary Dx) Social History [...] EST) WBC 6.20 3.40 - 11.20 K/uL [facility] RBC 4.11 3.80 - 4.80 M/uL [facility] HGB 9.4(L) 12.0 - 15.0 g/dL [facility] HCT 31.9(L) 36.0 - 46.0 % [facility] PLT 343 130 - 400 K/uL [facility] MCV 77.6(L) 79.0 - 98.0 fL [facility] MCH 22.9(L) 27.0 - 34.8 pg [facility] MCHC 29.5(L) 31.5 - 36.0 g/dL [facility] RDW 15.9(H) 10.8 - 14.6 % [facility] MPV 10.2 9.4 - 12.4 fl [facility] NRBC 0.00 0.00 /100 WBCs [facility] ABSOLUTE NRBC 0.00 0.00 K/uL [facility] DIFF METHOD Auto [facility] NEUTS 70.2 45.30 - 77.70 % [facility] LYMPHS 16.9 12.30 - 39.70 % [facility] MONOS 10.8 4.10 - 12.80 % [facility] EOS 1.1 0 - 7.2 % [facility] BASOS 0.8 0 - 2.80 % [facility] Granulocytes, immature (%) 0.2 0.0 - 0.9 % [facility] ABSOLUTE NEUTS 4.35 1.40 - 7.70 K/uL [facility] ABSOLUTE LYMPHS 1.05 0.60 - 3.20 K/uL [facility] ABSOLUTE MONOS 0.67(H) 0.11 - 0.59 K/uL [facility] ABSOLUTE EOS 0.07 0.01 - 0.50 K/uL [facility] ABSOLUTE BASOS 0.05 0.00 - 0.08 K/uL [facility] Granulocytes, immature 0.01 0.00 - 0.05 K/uL [facility] Blood 04/14/2019 12:1 2 PM EST 04/14/2019 12:17 PM EST us Dawood Allred MD LAB BLOOD ORDERABLES Final Result [facility] [address] [place] [address] * (ABNORMAL) Iron and iron binding capacity (04/14/2019 12:12 PM EST) IRON 15(L) 30 - 160 ug/dL [facility] IRON BINDING CAPACITY 302 228 - 428 ug/dL [facility] TRANSFERRIN SATURAT. 5(L) 15 - 50 % [facility] Blood 04/14/2019 12:1 2 PM EST 04/14/2019 12:17 PM EST Dawood Allred MD LAB BLOOD ORDERABLES Final Result Performing Organization Address City/[facility] Co de Phone Number [address] [address] * Ferritin (04/14/2019 12:12 PM EST) FERRITIN 34 13 - 150 ug/L [facility] Blood 04/14/2019 12:1 2 PM EST 04/14/2019 12:17 PM EST Dawood Allred MD LAB BLOOD ORDERABLES Final Result Performing Organization Address [facility] de Phone Number [address] [address] documented in this encounter Visit Diagnoses Diagnosis Anemia, unspecified type- Primary documented in this encounter Care Teams College Athlete Relationship Specialty Start Date End Date Jl Hameed DO [email or web address] PCP - General 04/29/17 documented as of this encounter Additional Source Comments The information contained in this document represents components of the legal health record. It is not the complete legal health record.[facility]
== END 2025-02-21 11:16 | disposition home or self-care (01) ==
LOC: HO.MANLDS 11:15
PROVIDERS: Visit Provider Hospitalist
DX: I50.9 Heart failure, unspecified (principal)
CPT/HCPCS: 36415; 80048

== ENCOUNTER 2025-03-09 09:53 | Outpatient (REF) | payer MEDICARE, SELFPAY ==
--- OUTSIDE RECORDS SUMMARY | 2025-03-09 11:12 | XMS_ITS | Data Portability ---
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 OUT OF [...] Time Details Appointments FOLLOW UP 15 2024 02:00P BELEN SPENCER Not available Not available Not available Lab hemoglobi n A1c, QN, blood 2024 025 [facility], [address] [place] [address], [id number], 02/26/2025 15:48:49 iron + TIBC + ferritin, serum 2024 025 [facility], [address] [place] [address], [id number], 02/26/2025 15:48:49 CBC w/ auto diff 2024 025 [facility], [address] [place] [address], [id number], 02/26/2025 15:48:49 CMP, serum or plasma 2024 025 [facility], [address] [place] [address], [id number], 02/26/2025 15:48:49 iron + TIBC + ferritin, serum 2024 025 [facility], [address] [place] [address], [id number], 12/18/2024 15:13:38 CBC w/ auto diff 2024 [facility], [address] [place] [address], [id number], 12/18/2024 15:13:38 uric acid, serum or plasma 2024 025 [facility], [address] [place] [address], [id number], 12/18/2024 15:13:38 SAMMY + rf (antinucl ear antibodie s + rheumatoi d factor), quantitat marsha, serum 2024 [facility], [address] [place] [address], [id number], 12/20/2024 15:05:33 ESR (erythroc yte sedimenta tion rate), blood 2024 025 [facility], [address] [place] [address], [id number], 12/18/2024 15:13:38 C reactive protein, QN, serum or plasma 2024 025 [facility], [address] [place] [address], [id number], 12/18/2024 15:13:38 CK (creatine kinase), total, serum 2024 025 [facility], [address] [place] [address], [id number], 12/18/2024 15:13:38 CBC 2024 025 [facility], [address] [place] [address], [id number], 10/09/2024 11:41:17 iron + TIBC + ferritin, serum 2024 025 [facility], [address] [place] [address], [id number], 10/09/2024 11:41:17 lipid panel, blood 2023 024 [facility], [address] [place] [address], [id number], 05/19/2024 13:35:18 CBC w/ auto diff 2023 024 [facility], [address] [place] [address], [id number], 05/19/2024 13:35:18 CMP, serum or plasma 2023 024 [facility], [address] [place] [address], [id number], 05/19/2024 13:35:18 Referral None recorded. Procedures None recorded. Surgeries None recorded. Imaging XR, knee, 3 view 2024 025 [facility] (Imaging), [address] [place] [address], [id number], 09/05/2024 16:01:33 Medication Orders meloxicam 7.5 mg tablet 2024 025 [id number], [address] [place] [address], [id number], 10/06/2024 15:47:29 Patient TargetsNo targets recorded. Patient Instructions Encounter Date Encounter Id Patient Instructions Last Modified By Organization Details Last Modified Time 03/27/2024 [id number] advance care planning: care instructions Not available 03/27/2024 14:40:47 Discussed and explained advance directives such as standard forms to the . Face to face discussion lasted for a duration of ___ minutes. jbigda Not available 03/22/2024 10:07:08 10/06/2024 [id number] managing nausea from cancer treatment: care instructions Not available 10/06/2024 15:51:37 anemia: care instructions Not available 10/06/2024 15:51:37 Reason for Referral None Reported. Results Created Date Observation Date Name Description Value Unit Range Abnormal Flag Note LastModifiedBy Organization Detail LastModifiedTime 09/06/1909/05/2024 XR, knee, 3 view No observ ation record ed. [email or web address] [facility] (Medical Records) [address] [place], [address], 09/06/2024 13:43:52 02/19/2002/18/2025 XR, chest , 2 view No observ ation record ed. [address] (Medical Records) [address] [place], [address], 02/19/2025 08:05:48 02/20/2002/18/2025 imagi ng/di agnos tic resul t No observ ation record ed. [address] (Medical Records) [address] [place], [address], 02/19/2025 08:07:16 Result Notes None recorded. Problems Name Problem SNOMED Code Status Onset Date Resolution Date Notes Provider Name and Address Organization Details Recorded Time Disorder of breast 53344520 Active 2017 Cancer , lymph nodes taken out, Chemo/ Radiat ion Vero shen [facility] 8 12:25:35 Migraine 66259933 Active [address] [facility] 8 12:26:02 Gastroeso phageal reflux disease 538758633 Active [address] [facility] 8 12:26:10 Restless legs syndrome 93795185 Active [address] [facility] 8 12:26:28 Hyperlipi demia 04409564 Active [address] [facility] 8 12:26:54 Dizziness 000081067 Active 2017 Jl Hameed, DO [address] [place], [address], [facility] 8 14:10:15 Diverticu losis of sigmoid colon 625531653 Active 2018 Jl Hameed DO [address] [place] [address], [address], [facility] 9 15:05:26 Iron deficienc y anemia 00154567 Active 2018 Jl Hameed DO [address] [place] [address], [address], [facility] 5 23:18:53 Bilateral osteoarth ritis of knees 947754806372 107 Active 2019 Jl Hameed DO [address] [place] [address], [address], [facility] 0 13:44:31 Postconcu ssion syndrome 61919719 Active 2019 Jl Hameed DO [address] [place] [address], [address], [facility] 0 14:54:51 Closed fracture of malar AND/OR maxillary bones 26523635 Active 2019 Jl Hameed DO [address] [place] [address], [address], [facility] 0 14:56:18 Polymyalg ia rheumatic a 52173115 Active 2021 Jl Hameed DO [address] [place] [address], [address], [facility] 2 13:37:53 Myalgia/m yositis - multiple 363680414 Active 2021 BELEN BEGUM [address] [place] [address], [address], [facility] 2 15:33:50 Tremor 27965304 Active 2022 Jl Hameed DO [address] [place] [address], [address], [facility] 3 15:17:14 Acute urinary tract infection 405081281 Active 2022 Jl Hameed DO [address] [place] [address], [address], [facility] 3 11:26:31 Stomach cramps 68505559 Active 2022 Jl Hameed DO [address] [place] [address], [address], [facility] 3 09:36:53 Atrial tachycard ia 285675322 Active 2022 Jl Hameed DO [address] [place] [address], [address], [facility] 3 09:37:39 Unsteady when walking 54948153 Active 2022 Jl Hameed DO [address] [place] [address], [address], [facility] 3 09:38:19 Nausea, vomiting and diarrhea 5796050 Active 2022 BELEN BEGUM [address] [place] [address], [address], [facility] 3 15:29:32 Liver function tests outside reference range 063958854 Active 2022 BELEN BEGUM [address] [place] [address], [address], [facility] 3 11:01:05 Abdominal pain 01760577 Active 2022 BELEN BEGUM [address] [place] [address], [address], [facility] 3 11:11:43 Cyst of uterus 710312 Active 2022 Jl Hameed DO [address] [place] [address], [address], [facility] 3 10:42:25 Urinary incontine nde 697989338 Active 2022 Jl Hameed DO [address] [place] [address], [address], [facility] 3 10:51:28 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 2022 Jl Hameed DO [address] [place] [address], [address], [facility] 3 22:13:57 Acute upper gastroint estinal hemorrhag e 18833855 Active 2022 Jl Hameed DO [address] [place] [address], [address], [facility] 3 22:14:28 Anemia 803181580 Active 2022 Jl Hameed DO [address] [place] [address], [address], [facility] 3 22:15:19 Bilateral hearing loss 56630843 Active 2022 BELEN BEGUM [address] [place] [address], [address], [facility] 3 15:04:21 Melena 6149176 Active 2022 BELEN BEGUM [address] [place] [address], [address], [facility] 3 10:41:10 Inappropr iate sinus tachycard ia 898511699 Active 2022 Jl Hameed DO [address] [place] [address], [address], [facility] 3 10:16:50 Gastroint estinal hemorrhag e 64801377 Active 2022 Jl Hameed DO [address] [place] [address], [address], [facility] 3 13:45:49 Recurrent urinary tract infection 605648316 Active 2023 Jl Hameed DO [address] [place] [address], [address], [facility] 4 16:46:48 Synovial cyst of left knee 692591681576 102 Active 2023 Jl Hameed, DO [address] [place] [address], [address], [facility] 4 12:37:49 Dysuria 48066657 Active 2023 Jl Hameed, DO [address] [place] [address], [address], [facility] 4 11:26:29 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 154354582 Active 2023 Jl Hameed, DO [address] [place] [address], [address], [facility] 4 16:07:14 Allergic reaction to drug 765209132 Active 2023 BELEN BEGUM [address] [place] [address], [address], [facility] 4 14:05:39 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 2023 Jl Hameed DO [address] [place] [address], [address], [facility] 4 16:25:32 Disorder of vitamin B12 964709863 Active 2023 Jl Hameed DO [address] [place] [address], [address], [facility] 4 16:32:02 Eczema 13443282 Active 2023 Jl Hameed DO [address] [place] [address], [address], [facility] 4 14:35:51 Contusion of right forearm 121568188472 36776 Active 2024 Jl Hameed DO [address] [place] [address], [address], [facility] 5 13:49:20 Pain of left knee joint 736109973697 107 Active 2024 Jl Hameed, [address] [place], [address], [facility] 5 13:50:12 Effusion of joint of right knee 887461615707 104 Active 2024 BELEN BEGUM [address] [place], [address], [facility] 5 14:59:43 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 753752761 Active 2024 BELEN BEGUM [address] [place], [address], [facility] 5 15:00:54 Pain of knee region 8937786274 Active 2024 BELEN BEGUM [address] [place] [address], [address], [facility] 5 16:19:23 Pain of right knee joint 707562436148 100 Active 2024 BELEN BEGUM [address] [place], [address], [facility] 5 14:12:53 Acute kidney injury 46845457 Active 2024 BELEN BEGUM [address] [place], [address], [facility] 5 15:40:26 Impaired fasting glycemia 128601201 Active 2024 BELEN BEGUM [address] [place], [address], [facility] 5 15:44:28 Problem Notes None recorded. Procedures Surgical History Date Name Laterality Status Provider Name and Address Organization Details Recorded Time Knee Surgery completed Vero Mercado [facility] 07/13/2017 12:27:53 Knee Surgery completed Vero Mercado [facility] 07/13/2017 12:28:28 Cholecystectomy completed Vero Mercado [facility] 07/13/2017 12:29:02 Imaging Results None recorded. Procedure Notes None recorded. Medical Equipment None Reported. Allergies Allergen ID Allergen Name Allergen Category Reaction Reaction Severity Criticality Documentation Date Start Date Code Code System Note Provider Name and Address Organization Details Recorded Time 2386 Lyrica medicatio n Not available Not available Not available 02/01/2018 73223 1 RxNorm leg pain, [facility] [place] [facility] 8 13:32:10 550 gabapenti n medicatio n Not available Not available Not available 07/13/2017 92850 RxNorm Light head, numbn ess in hands [facility] 8 12:22:40 551 Product containin g penicilli n (product) medicatio n Not available Not available Not available 07/13/2017 98088 8001 [facility] 8 12:22:54 552 Product containin g 3-hydroxy -3-methyl glutaryl- coenzyme A reductase inhibitor (product) medicatio n Not available Not available Not available 07/13/2017 55778 009 [facility] Vero Mercado [facility] 8 12:23:15 553 Levaquin medicatio n Not available Not available Not available 07/13/2017 13845 2 RxNorm [facility] 8 12:23:26 8253 Gemtesa medicatio n rash Not available Not available 12/06/20232023 47517 16 RxNorm [facility] 4 13:44:53 8254 Substance with sulfonami de structure and antibacte rial mechanism of action (substanc e) medicatio n Not available Not available Not available 12/06/2023 92021 8003 SNOMED BELEN BEGUM [address] [place], [address] 4 14:06:19 Medications Name Sig Start Date Stop Date Status Note LastModified by Organization Details LastModified Time celecoxib 200 mg capsule 01/08 completed Not Available Not Available Not Available amoxicilli n 500 mg capsule 07/09 completed Not Available Not Available Not Available latanopros t 0.005 % eye drops INSTILL 1 DROP INTO BOTH EYES EVERY EVENING active Not Available Not Available No t Available clotrimazo le 10 mg joceline as needed 08/11 completed Not Available Not Available Not Available desonide 0.05 % topical cream APPLY SPARINGL Y AND RUB GENTLY INTO THE AFFECTED AREA(S) BY TOPICAL ROUTE 2 TIMES PER DAY for 10 days 02/26 completed Not Available Not Available Not Available acetaminop hen 325 mg tablet TAKE 2 TABLET BY MOUTH EVERY 4 HOURS NEEDED FOR PAIN active Not Available Not Available No t Available prednisone 10 mg tablet Take 1 tablet every day by oral route as directed for 10 days. 02/03 completed Not Available Not Available Not Available erythromyc in 500 mg tablet 10/02 completed Not Available Not Available Not Available Iron (ferrous sulfate) 325 mg (65 mg iron) tablet Take 1 tablet every day by oral route. active 1 tablet 2 times per day Not Available Not Available Not Available azithromyc in 250 mg tablet TAKE 2 TABLETS (500 MG) BY ORAL ROUTE ONCE DAILY FOR 1 DAY THEN 1 TABLET (250 MG) BY ORAL ROUTE ONCE DAILY FOR 4 DAYS 05/08 completed Not Available Not Available Not Available sumatripta n 100 mg tablet TAKE 1 TABLET BY MOUTH AT ONSET OF MIGRAINE . MAY TAKE 1 EXTRA DOSE 2 HOUR LATER NEEDED active Not Available Not Available No t Available senna 8.6 mg tablet TAKE 2 TABLETS BY MOUTH DAILY AT BEDTIME NEEDED FOR CONSTIPA TION 11/20 completed Not Available Not Available Not Available prochlorpe razine maleate 5 mg tablet TAKE 1 TABLET BY MOUTH 3 TIMES A DAY NEEDED FOR NAUSEA OR VOMITTIN G 11/20 completed Not Available Not Available Not Available sucralfate 1 gram tablet TAKE 1 TABLET BY MOUTH 60 MINUTES BEFORE A MEAL THREE TIMES DAILY AND AT BEDTIME. YOU CAN DISSOLVE PILL INTO 2-3 OZ OF WARM WATER active Not Available Not Available No t Available ondansetro n HCl 4 mg tablet 01/08 completed Not Available Not Available Not Available prednisone 20 mg tablet TAKE 1 TABLET BY MOUTH EVERY DAY WITH A MEAL FOR 28 DAYS 01/17 completed Not Available Not Available Not Available clonazepam 0.5 mg tablet Take 1 tablet every day by oral route at bedtime for 30 days. 06/08 completed Not Available Not Available Not Available clindamyci n HCl 150 mg capsule TAKE 1 CAPSULE BY MOUTH EVERY 6 HOURS 05/08 completed Not Available Not Available Not Available triamcinol one acetonide 0.1 % topical cream APPLY THIN LAYER TOPICALL Y TO THE AFFECTED AREA TWICE DAILY 02/26 completed Not Available Not Available Not Available meloxicam 7.5 mg tablet TAKE 1 TABLET BY MOUTH EVERY DAY FOR 14 DAYS 10/06 completed Not Available Not Available Not Available methenamin e hippurate 1 gram tablet TAKE 1 TABLET BY MOUTH DAILY active Not Available Not Available No t Available dicyclomin e 20 mg tablet TAKE 1 TABLET BY MOUTH THREE TIMES DAILY NEEDED 11/20 completed Not Available Not Available Not Available doxycyclin e monohydrat e 100 mg capsule 04/16 completed Not Available [...] Not Available Not Available omeprazole 20 mg capsule,de layed release TAKE 1 CAPSULE BY MOUTH TWICE DAILY active Not Available Not Available No t Available cephalexin 500 mg tablet Take 1 tablet every 6 hours by oral route for 10 days. 12/02 completed Not Available Not Available Not Available hydroxyzin e HCl 25 mg tablet TAKE 1 TABLET BY MOUTH THREE TIMES DAILY NEEDED FOR 7 DAYS 10/06 completed Not Available Not Available Not Available furosemide 20 mg tablet TAKE 1 TABLET BY MOUTH 4 TIMES A WEEK active Not Available Not Available No t Available metoprolol succinate ER 25 mg tablet,ext ended release 24 hr TAKE 1 TABLET BY MOUTH EVERY DAY 09/04 completed Not Available Not Available Not Available polyethyle ne glycol 3350 17 gram/dose oral powder DISSOLVE 17G IN WATER AND TAKE ORALLY DAILY 02/26 completed Not Available Not Available Not Available estradiol 0.01% (0.1 mg/gram) vaginal cream USE 1 GRAM VAGINALL Y DAILY AT BEDTIME TAKE EVERY NIGHT FOR 2 WEEKS THEN 2 TIMES A WEEK active Not Available Not Available No t Available neomycin 500 mg tablet 02/26 completed Not Available Not Available Not Available ondansetro n 4 mg disintegra ting tablet DISSOLVE 2 TABLETS ON THE TONGUE [...] completed Not Available Not Available Not Available Multivitam in 50 Plus tablet Take 1 tablet every day by oral route. active OTC Not Available Not Available No t Available nitrofuran toin monohydrat e/macrocry stals 100 mg capsule TAKE 1 CAPSULE BY [...] completed Not Available Not Available Not Available levocetiri zine 5 mg tablet Take 1 tablet every day by oral route for 30 days. 07/09 completed Not Available Not Available Not Available Myrbetriq 25 mg tablet,ext ended release TAKE 1 TABLET BY MOUTH DAILY. DO NOT CRUSH OR CHEW 10/06 completed Not Available Not Available Not Available Flonase Allergy Relief 50 mcg/actuat ion nasal spray,susp ension [place] 1 spray every day by intranas al route for 30 days. 10/02 completed Not Available Not Available Not Available Shingrix (PF) 50 mcg/0.5 mL intramuscu lar suspension , kit 07/09 completed Not Available Not Available Not Available Fluad Quad ( 65yr up)(PF) 60 mcg (15 mcg x 4)/0.5mL [...] Updated DateTime 09/05/2024 162.56 cm 24.4 kg/m2 84009.12 g 132/73 mm[Hg] Kell Jamil [facility] 09/05/2024 13:36:06 Date Recorded Body height Body mass index (BMI) Body weight Heart rate Oxygen saturation Oxygen saturation in Arterial blood by Pulse oximetry Systolic And Diastolic Provider Name and Address Organization Details Last Updated DateTime 5 162.56 cm 26.1 kg/m2 13672.4 g 80 /min 94 % 94 % 118/74 mm[Hg] Ashley Gerardo [facility] 5 14:48:53 Date Recorded Body height Body mass index (BMI) Body weight Oxygen saturation Oxygen saturation in Arterial blood by Pulse oximetry Heart rate Systolic And Diastolic Provider Name and Address Organization Details Last Updated DateTime 5 162.56 cm 26.4 kg/m2 03601.2 2 g 99 % 99 % 78 /min 118/74 mm[Hg] Gunjan Levy [facility] 5 15:31:12 Date Recorded Body height Body mass index (BMI) Body weight Heart rate Oxygen saturation Oxygen saturation in Arterial blood by Pulse oximetry Systolic And Diastolic Provider Name and Address Organization Details Last Updated DateTime 4 162.56 cm 24.5 kg/m2 49383.7 1 g 74 /min 99 % 99 % 162/84 mm[Hg] Jl Hameed, DO [address] [place], [address], [facility] 4 14:05:31 Social History Question Answer Notes LastModified by Organizat ion Details LastModified Time Tobacco Smoking Status Former Smoker Not Available [employer] 02/27/2020 03:36:23 What Was The Date Of Your Most Recent Tobacco Screening? 02/26/2025 Information not available 02/26/2025 How Many Years Have You Smoked Tobacco? 12 [id number] Information not available 02/27/2020 Sex: Unknown Functional [...] Tdap 03/23/20 20 completed Radha Gencarelle hermelinda [facility] 01/06/2021 14:52:31 Pneumococcal conjugate PCV 13 02/25/20 17 completed Michelle shen [facility] 01/06/2021 14:58:01 COVID-19, mRNA, LNP-S, PF, 100 mcg/0.5mL dose or 50 mcg/0.25mL dose 06/26/19 21 completed Michelle shen [facility] 01/06/2021 14:58:48 COVID-19, mRNA, LNP-S, PF, 100 mcg/0.5mL dose or 50 mcg/0.25mL dose 05/28/19 21 completed Jl Hameed DO [address] [place] [address], [address], [facility] 07/14/2021 16:25:57 COVID-19, mRNA, LNP-S, PF, 100 mcg/0.5mL dose or 50 mcg/0.25mL dose 04/07/20 21 completed Jl Hameed DO [address] [place] [address], [address], [facility] 07/14/2021 16:26:04 Influenza, split virus, quadrivalent, preservative 04/07/[address] [facility] 09/26/2021 09:34:49 influenza, unspecified formulation 04/03/20 22 completed Jl Hameed DO [address] [place] [address], [address], [facility] 05/15/2022 14:49:17 Influenza, split virus, quadrivalent, preservative 02/17/20 18 completed Michelle shen [facility] 06/08/2018 14:33:06 pneumococcal polysaccharide PPV23 06/25/19 19 completed Jl Hameed DO [address] [place] [address], [address], [facility] 06/25/2018 10:41:36 zoster live 11/05/19 19 completed Jl Hameed DO [address] [place] [address], [address], [facility] 11/05/2018 10:43:34 zoster live 01/14/20 19 [facility] 01/16/2019 08:06:43 Influenza, adjuvanted, trivalent, PF 01/29/20 19 completed [facility] 01/30/2019 12:01:02 Influenza, split virus, quadrivalent, preservative 01/29/20 20 completed Jl Hameed DO [address] [place] [address], [address], [facility] 04/16/2020 14:30:36 Influenza, split virus, quadrivalent, preservative 02/19/20 17 completed [facility] 07/13/2017 13:26:49 Past Encounters Encounter ID Performer Location Encounter Start Date Encounter Closed Date Diagnosis/Indication Diagnosis SNOMED-CT Code Diagnosis ICD10 Code Diagnosis IMO Codes Diagnosis Note [id number] Jl Hameed [facility] [address],[place] [address] 08/16/2017 13:33:31 08/16/2017 14:10:36 Chronic kidney disease stage 2 [id number] N18.2 unclear etiology, has been present since at least 07/2015, though her older records are in a second volume. will recheck labs, reccommend being very well hydrated handwritte n lab for CMP, lipids, cbc will need to pull second volume to determine when sx started Liver func tion tests outside reference range 739337543 R94.5 handwritte n lab for CMP, lipids, cbc, hcv, hbv Generalize d anxiety disorder 11052838 F41.1 on fluoxetine , for many years Restless l egs syndrome 91359133 G25.81 takes lyrica with good effect Upper resp iratory infection 12710424 J06.9 likely viral, recommend fluids, rest, mucinex-dm , sx likely will last 7-10 days, f/u if sx worsen or persist there after. [id number] Jl Hameed [facility] Internal Medicine [address] [facility], [employer] [facility] [place], [place] [address] 02/01/2018 13:22:59 02/01/2018 14:08:40 Chronic kidney disease stage 2 [id number] N18.2 unclear etiology, has been present since at least 07/2015, though her older records are in a second volume. will recheck labs, reccommend being very well hydrated worsened in july labs, will recheck will dc prilosec due to possible renail impairment Liver func tion tests outside reference range 186501100 R94.5 improved in july labs Generalize d anxiety disorder 30044437 F41.1 on fluoxetine , for many years Restless l egs syndrome 11841315 G25.81 will check levels today lyrica has been d/cd will trial clonazepam Hyperlipidemia 69479997 E78.5 borderline , will recheck Gastroesop hageal reflux disease 989797805 K21.9 [id number] Jl Hameed [facility] Internal Medicine [address] [facility],[place] [address] 02/23/2018 13:33:51 02/23/2018 14:24:06 Depressive disorder 65080327 F32.0 stable migraines also stable Unintentio nal weight loss 049599897 R63.4 with abdominal pain and anemia wgt loss >40lbs Iron defic iency anemia 09775243 D50.9 [id number] Jl Hameed [facility] Internal Medicine [address] [facility], [place] [address] 03/11/2018 11:10:51 03/11/2018 13:27:39 Anemia 561680043 D64.9 will cont with iron until eval as below Epigastric pain 58912818 R10.13 will need to have GI eval and will need EGD etc and colonoscop y given the patients sgt loss of 40 lbs and anemia and evidence of gastric abnormalit y Mass of ri ght adrenal gland 0219036348 3279234 E27.8 per radiologis t needs the ulstrasoun d done to confirm cyst [id number] Jl Hameed [facility] Internal Medicine [address] [facility], [place] [address] 06/08/2018 14:06:13 06/08/2018 15:18:39 Adult health examination 206454682 Z00.00 Abdominal pain 99155998 R10.9 believe this from diverticul osis not itis and that she just has some smoulderin g inflammati on this would also explain her mild anemia with no evid or source of bleed Iron defic iency anemia 82782922 D50.9 need to rechk levels she is taking iron daily this also acccounts for her RLS getting better Diverticul osis of sigmoid colon 790141697 K57.30 sanchez adjust her diet and add slowly metamucil [id number] Jl Hameed [facility] Internal Medicine [address], it[address] J Luis [facility] [place] [place] [address] 07/13/2018 13:57:33 07/13/2018 14:44:23 Malaise and fatigue 305441345 R53.83 wondering if her blood count has dropped again worried that she is bleeding again recheck cbc iron etc Iron defic iency anemia 26922806 D50.9 need to rechk levels she is taking iron daily but this may not be enough her RLS are back again and is usu indicative of low iron Restless l egs syndrome 14787054 G25.81 check iron [id number] Jl Hameed [facility] Internal Medicine [address] [facility], [place] [address] 07/22/2018 11:43:48 07/22/2018 15:27:37 Iron deficiency anemia 16775400 D50.9 is from a gi bleed as evidenced from her heme positive occult stool cards X3 will need to be seen again by dr deon barnes and will need rescope and perhaps egd [place] [id number] Jl Hameed [facility] Internal Medicine [address] [facility],[place] [address] 12/28/2018 14:42:44 12/28/2018 15:14:54 Cough 54782663 R05 doesn't seem infection, suspect allergies/ PND will r/o atypical pna - get cxr Allergic rhinitis 487707 04 J30.9 allergy treatments Insomnia 007221587 G47.0 0 perhaps xyzal will help with this trial for a couple weeks and see if further treatment is needed [id number] Jl Hameed [facility] Internal [facility] [address],[place] [address] 07/10/2019 13:28:38 07/10/2019 14:03:55 Adult health examination 555496209 Z00.01 she has gained some weight back thankfully Iron defic iency anemia 41674067 D50.9 is from a gi bleed as evidenced from her heme positive occult stool cards X3 she feels markedly better after the IRON infusions will need to be seen again by dr deon barnes and will be followed [id number] Jl Hameed [facility] Internal Medicine [address],[place] [address] 10/03/2019 15:17:44 10/03/2019 16:27:14 Pain of right calf 1813438605 384562 M79.661 the patient reports swelling, warmth in the right calf and tenderness to palpation Edema of l ower extremity 248690092 R60.0 swelling of bilateral knees will send back to ortho [id number] Jl Hameed [facility] Internal Medicine [address],[place] [address] 01/08/2020 13:28:57 01/08/2020 14:18:35 Hyperlipidemia 10636218 E78.5 will rechk at next lab Iron defic iency anemia 91028434 D50.9 is from a gi bleed as evidenced from her heme positive occult stool cards X3 she feels markedly better after the IRON infusions has finished her iron infusions but will follow the hematologi st in 3 mo will need to be seen again by dr lynda barnes and will be followed Diverticul osis of sigmoid colon 332159693 K57.30 sanchez adjust her diet and add slowly metamucil Prerenal azotemia 813915 001 N25.9 11374 Jl Hameed [facility] Internal Medicine [address],[place] [address] 03/27/2020 13:25:39 03/27/2020 13:56:50 Migraine 20719362 G43.909 helped with the sumatripta n, increased after the injury Dizziness 521170853 R42 the patient doing much better today Vertigo 725725527 R42 [place] [id number] Jl Hameed [facility] Internal Medicine [address],[place] [address] 04/16/2020 14:08:59 04/16/2020 15:14:12 Dizziness 535640530 R42 part of her post concussion synd Iron defic iency anemia 29631864 D50.9 is from a gi bleed as evidenced from her heme positive occult stool cards X3 she feels markedly better after the IRON infusions has finished her iron infusions but will follow the hematologi st in 3 mo will need to be seen again by dr lynda barnes and will be followed Gastroesop hageal reflux disease 442761735 K21.9 stable on current meds 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 relates is slowly getting better but still has some lingering symptoms and Closed fra cture of malar AND/OR maxillary bones 61241115 S02.400A slowly healing and doing better ent and dental both feel no surgery is needed [id number] Jl Hameed DO [facility] Internal Medicine [address] [facility], [place] [address] 08/26/2020 13:25:05 08/26/2020 14:40:35 Iron deficiency anemia 20127300 D50.9 is from a gi bleed as [...] cbc decreases Diverticul osis of sigmoid colon 283048671 K57.30 has adjust her diet and cont metamucil Dizziness 735961893 R42 finally resolved now post concuss [id number] Jl Hameed DO [facility] Internal Medicine [address] [facility],[place] [address] 01/08/2021 13:20:59 01/08/2021 14:46:00 Mass of right adrenal gland 0162027785 2182595 E27.8 per radiologis t needs the lashawn veliz done to confirm cyst Depressive disorder 3548 9007 F32.0 stable migraines also stable Closed fra cture of malar AND/OR maxillary bones 48075382 S02.400A slowly healing and doing better ent and dental both feel no surgery is needed Iron defic iency anemia 78036483 D50.9 is from a gi bleed as [...] she usu knows when cbc decreases Hyperlipidemia 79990875 E78.5 will rechk at next lab Gastroesop hageal reflux disease 103696570 K21.9 stable on current meds Bilateral osteoarthritis of knees 0885941199 88265 M17.0 having pain around prosthetic swe will try some meloxicam [id number] Jl Hameed DO [facility] Internal Medicine [address] [facility],[place] [address] 05/14/2021 08:12:09 05/16/2021 13:11:42 Iron deficiency anemia 24077868 D50.9 she feels a little better after [...] a GI specialist Restless l egs syndrome 21379583 G25.81 check iron Diverticul osis of sigmoid colon 054836091 K57.30 has adjust her diet and cont metamucil Mass of ri ght adrenal gland 9836750376 1543980 E27.8 per radiologis t needs the ultrasound done to confirm cyst Depressive disorder 3548 9007 F32.0 stable migraines also stable Closed fra cture of malar AND/OR maxillary bones 19476214 S02.400A stable and doing better ent and dental both feel no surgery is needed Migraine 18681031 G43.90 9 has been stable but ran out of sumatripta n [id number] Jl Hameed [facility] Internal Medicine [address] [facility], [place] [address] 07/14/2021 16:17:28 07/15/2021 11:02:41 Diverticulosis of colon 638722879 K57.30 cont to improve and eating good and bowels are much better she will call andreas if her pain returns in her LLQ or fever or both [id number] Jl Hameed [facility] Internal Medicine [address] [facility], [place] [address] 09/26/2021 15:51:14 09/26/2021 16:24:35 Hyperlipidemia 87116627 E78.5 will rechk at next lab Gastroesop hageal reflux disease 615994996 K21.9 stable on current meds Iron defic iency anemia 01415070 D50.9 doing much bettereati ng better PRIOR [...] a GI specialist Advance care planning 71 6858204 Z71.89 done [id number] Jl Hameed [facility] Internal Medicine [address] [facility], [place] [address] 12/19/2021 13:31:27 12/19/2021 14:33:24 Migraine 40545070 G43.909 has been stable but ran out of sumatripta n Advance care planning 71 2458975 Z71.89 Has on file with [facility] Polymyalgi a rheumatica 84490665 M35.3 we will begin to slowly taper the prednisone will have been on pred 40mg for one month on dec 5will decrease to 35 mg after the weekend and see how she doeswill get an esr after a couple [id number] Jl Hameed DO [facility] Internal Medicine [address] [facility] [place] [address] 01/16/2022 16:17:09 01/19/2022 09:59:46 Polymyalgia rheumatica 78799958 M35.3 she feels great and is doing wonderfule sr was 80 and is now down to 4appetite is too good Bilateral osteoarthritis of knees 2354820216 58667 M17.0 is feeling great Diverticul osis of sigmoid colon 783919689 K57.30 has adjust her diet and cont metamucil Gastroesop hageal reflux disease 044592205 K21.9 stable on current meds Iron defic iency anemia 14001145 D50.9 doing much bettereati ng better PRIOR [...] to have her see a GI specialist [id number] Jl Hameed DO [facility] [address] [facility],[place] [facility] [place] [address] 03/16/2022 15:06:22 03/16/2022 15:38:34 Polymyalgia rheumatica 03671969 M35.3 she feels great and is doing wonderfule sr was 80 and is now down to 4 and last week 7 so is down to her last dose and now dc we will rechk a esr in few weeksappet ite is too good she will call if her sx return and we will do quick pred pulse dosewill see in spring [id number] Jl Miles Yoseph, [facility] Internal Medicine [address] [facility] [address],[place] [address] Veliz [facility] [place] [place] [address] 05/15/2022 14:37:24 05/15/2022 15:28:13 Iron deficiency anemia 96443990 D50.9 now her symptoms are mimicing her prior severe iron def anemia we will check lab now and have her see dr lynda johns Mass of ri ght adrenal gland 4734517815 3236459 E27.8 per radiologis t needs the ultrasound done to confirm cyst Polymyalgi a rheumatica 50201440 M35.3 she feels great and is doing wonderfule sr was 80 and is now down to 4 and last week 7 so is down to her last dose and now dc we will rechk a esr in few weeksappet ite is too good she will call if her sx return and we will do quick pred pulse dosewill see in spring Depressive disorder 5454 9007 F32.0 stable migraines also stable Closed fra cture of malar AND/OR maxillary bones 28775294 S02.400A stable and doing better ent and dental both feel no surgery is needed Advance care planning 71 1416317 Z71.89 Has on file with [facility] [id number] Jl HameedDO [facility] Internal Medicine [address] [facility] [address],[place] it[address]iel Veliz [facility] [address] 07/01/2022 14:20:51 07/01/2022 15:27:01 Polymyalgia rheumatica 78714584 M35.3 she feels great and is doing [...] see in spring Advance care planning 71 2589347 Z71.89 Has on file with [facility] Iron defic iency anemia 66585242 D50.9 now wondering if iron def has returned and is causing the tremor in handswe will rechk in lab now Tremor 64909765 R25.1 unsure etiol could be from iron def or ?pred taper ? no med that are new etcwill chk lab now if the labe is negative then we should try a beta clifford [id number] Jl Hameed [facility] Internal Medicine [address] [facility],[place] [address] 08/11/2022 10:24:40 08/11/2022 12:19:51 Adult health examination 328516019 Z00.00 has noticed increased fatigue as of late Acute urin mahesh tract infection 749366018 N39.0 Atrial fibrillation 4943 6004 I48.91 will initiate metoprolol and put her on asa until definitive dx we obtained tentative dx by exam and by Esmer [id number] Jl Hameed [facility] Internal Medicine [address] [facility],[place] [address] 08/28/2022 09:00:48 08/28/2022 11:10:24 Iron deficiency anemia 40290078 D50.9 cbc normal iron level is also goodwillst op iron supp she has been having GI upset Stomach cramps 80154208 R10.9 prob secondary to sulfa med now feels better Atrial tachycardia 93693 6006 I47.1 we will have her cont the metoprolol low dose and see her in october Unsteady when walking 22 667579 R26.89 will get a eval done [id number] Jl Hameed [facility] Internal Medicine [address],[place] [address] 09/14/2022 09:12:26 09/14/2022 11:23:12 Abdominal pain 86388081 R10.11 start on dicyclomin e 20 mg TID and nausea she will continue zofran Nausea, vo miting and diarrhea 0724262 R11.2 elevated LFTs, protein and signs of anemia; concern for biliary symptom problem [id number] Jl Hameed [facility] Internal Medicine [address] [facility],[place] [address] 10/02/2022 15:40:40 10/02/2022 16:24:29 Pre-surgery evaluation 972880188 Z01.818 The patient was seen in the office today for pre-op evaluation . All medical conditions on patient's problem list were addressed and are currently stable, no interventi on needed at this time. Based on history and physical performed, the patient is cleared for surgery. [id number] Jl Hameed DO [facility] Internal Medicine [address] [facility],[place] [address] 11/20/2022 08:00:16 11/20/2022 14:17:23 Polymyalgia rheumatica 87875438 M35.3 she feels great and is doing wonderfuln o longer on prednisone she will call if her sx return and we will do quick pred pulse dosewill see in spring Gastroesop hageal reflux disease 484422654 K21.9 stable on current meds Cyst of uterus 588483 N 88.8 did well with surgery and no major issues was 12cm in size Diverticul osis of sigmoid colon 434426948 K57.30 has adjust her diet and cont metamucil Urinary incontinence 165 179520 R32 going to a incont clinic at [facility] Bilateral osteoarthritis of knees 3716043333 25503 M17.0 we will provid cor t inj when she is ready [id number] Jl Hameed DO [facility] Internal Medicine [address] [facility],[place] [address] 12/25/2022 08:04:46 12/25/2022 15:24:45 Acute upper gastrointestinal hemorrhage 22706128 K92.1 will set up with recheck BW Gastroesop hageal reflux disease 866990358 K21.9 stable Hyperlipidemia 98262812 E78.2 stable Iron defic iency anemia 61777920 D50.9 stable Bilateral hearing loss 09184689 H90.5 referral sent [id number] Jl Hameed DO [facility] Internal Medicine [address],[place] [address] 02/22/2023 09:47:49 02/22/2023 10:59:43 Bilateral osteoarthritis of knees 6225571249 40951 M17.0 she has a new stimulator doing well with it so far Iron defic iency anemia 93953318 D50.9 cbc normal if iron level is also goodwillst op iron supp she has been having GI upset Acute uppe r gastrointestinal hemorrhage 41867623 K92.1 no further bleedingno perlita Inappropri ate sinus tachycardia 786046301 I47.11 quiet nno issues [id number] Jl Hameed [facility] Internal Medicine [address] [facility], [place] [address] 04/21/2023 09:18:25 04/21/2023 15:17:48 Bilateral osteoarthritis of knees 5377368758 17053 M17.0 she has a new stimulator doing well with it so far Anemia 240508231 D64.9 will cont with iron until eval as below Inappropri ate sinus tachycardia 349346701 I47.11 quiet no issues Gastrointe stinal hemorrhage 01818181 K92.2 has had major work up after recent bleeding that required mult transfusio ns (at least 4)await results of video capsule [id number] Jl Hameed [facility] Internal Medicine [address],[place] [address] 07/26/2023 11:53:47 07/26/2023 14:25:43 Synovial cyst of left knee 4445311925 04674 M71.22 ruptured now resolving discussed care and ongoing tx Iron defic iency anemia 86199674 D50.9 doing fantastic with her iron infusions Acute urin mahesh tract infection 723871561 N39.0 now is asymptomat ictold her to use the lubricant every day [id number] Jl Hameed [facility] Internal Medicine [address] [facility], [place] [address] 12/06/2023 13:29:44 12/06/2023 14:45:24 Depression screening 187188965 Z13.31 SCREENING NEGATIVE Allergic r eaction to drug 894631854 T78.49XA will start on prednisone for the rash (allergic reaction)w ill set up wtih hydroxyzin e for the itch specifical ly [id number] Jl Hameed [facility] Internal Medicine [address] [facility], [place] [address] 12/20/2023 13:45:11 12/20/2023 14:22:27 Polymyalgia rheumatica 18647659 M35.3 she feels great and is doing wonderfuln o longer on prednisone she will call if her sx return and we will do quick pred pulse dosewill see in spring 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 stable and doing well with iron infusions Anemia 478860341 D64.9 will cont with iron until eval as below Iron defic iency anemia 34401208 D50.9 doing fantastic with her iron infusions [id number] Jl Hameed [facility] Internal Medicine [address],[place] [address] 03/27/2024 13:49:10 03/27/2024 14:44:29 Adult health examination 264931512 Z00.01 has noticed increased fatigue as of late Screening for cardiovascular system disease 527564821 Z13.6 Screening mammography 24 125025 Z12.31 not required 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 doing well Hyperlipidemia 15830506 E78.2 will rechk at next lab Iron defic iency anemia 36538578 D50.9 doing fantastic with her iron infusions has been stable at 12.2 the last few months skipping iron infusion this month per dr howell Eczema 99295800 L30.9 [id number] Jl Hameed [facility] Internal Medicine [address],[place] [address] 09/05/2024 13:29:17 09/05/2024 13:56:12 Hyperlipidemia 76545848 E78.2 will rechk at next lab Depression screening 171 529242 Z13.31 neg Iron defic iency anemia 50446954 D50.9 doing fantastic with her iron infusions has been stable at 13.5 the last few months skipping iron infusion this month per dr howell Contusion of right forearm 4983326819 2068319 S50.11XA 537706 noted healing but still sore will use tylenol prn Pain of le ft knee joint 3514210236 73780 M25.562 430759 [id number] Jl Hameed [facility] Internal Medicine [address] [facility] [place] [address] 10/06/2024 15:19:24 10/06/2024 16:01:25 Pain of left knee joint 3264997510 63635 M25.562 071795 cont with tylenoll for now melox helped but we need lab first Anemia 138932014 D64.9 will cont with iron until eval as below Disorder o f vitamin B12 443083679 E53.8 doing well Stomach cramps 27922519 R10.9 resolved Nausea, vo miting and diarrhea 9174080 R11.2 resolved [id number] Jl Hameed [facility] Internal Medicine [address] [facility], [place] [address] 12/18/2024 14:08:51 12/18/2024 16:52:24 Effusion of joint of right knee 4724646551 15944 M25.419 9219197 will set up additional lab workon top of her regular lab work Iron defic iency anemia due to blood loss 399715251 D50.0 403618 will set up with lab work [id number] Jl Hameed DO [facility] Internal Medicine [address] [facility], itkiel Vel[place] [address] 02/26/2025 14:37:39 02/26/2025 17:21:07 Depression screening 142082814 Z13.31 SCREENING NEGATIVE Acute kidney injury 1466 9001 N17.0 51948 set up with repeat CMP Iron defic iency anemia due to blood loss 841666492 D50.0 094772 will set up with lab work Impaired f asting glycemia 522096921 R73.01 726055 will recheck her glucose levels as well Health Concerns Section Related Observation LastModified by Organization Detai ls LastModified Time None Recorded Concern Status LastModified by Organization Details LastModified Time None Recorded Advance Directives Directive None Recorded Payers Insurance Date Sequence Insurance Name Policy Number Policy Barnhart Covered Member ID Barnhart Member ID Guarantor Name 02/24/2025 1 [place] [employer] Renita Ritchie [id number] Renita Ritchie 03/09/2025 2 [place] [id number] Renita Parkerkendra [id number] Renitanu Diaskimberly Notes Date Note Type Note Provider Name and Address Organization Details Recorded Time 03/27/20 24 text/htm l Medicare Annual Wellness [...] noted in the HPI feeling mere Hameed, [address] [place], [address], [facility] 03/27/2024 14:42:23 09/06/19 25 [...] in good shape by dr mynor Hameed, [address] [facility], [place], [address], [facility] 09/05/2024 13:53:26 10/07/19 25 [...] tired as of late Jl Hameed, [address] [place], [address], [facility] 10/06/2024 15:52:29 12/19/19 text/htm l ROS as [...] who does her injections BELEN BEGUM [address] [place], [address], [facility] 12/18/2024 15:07:41 02/27/20 text/htm l ROS as noted in the HPI hospital f/u the patient may have had a poor reaction to the prednisone taper she was on due to the swelling of her knees (can't take NSAID's due to hx), APAP ineffective possible MEGA due to thisthought she has BP issues but in office her levels recommended repeat BP no chest pain or sob since d/c from the ER the patient had some pulm edema, which was the reason for the chest painthe patient currently has lasix on board the patient is otherwise baselinewill f/u with patient in a few weeks recheck her CBC levels BELEN BEGUM [address] [place], [address], [facility] 02/26/2025 16:24:20 OBGyn Episode No OBEpisode recorded.
[2025-03-09 13:45] LABS: MANUAL DIFF FLAG NO
[2025-03-09 13:57] LABS: Hematocrit 38.0 % (37.0-47.0); Hemoglobin 11.8 g/dl (12.0-16.0); Imm Gran Abs Auto 0.02 X10*3/uL (0.00-0.03); Imm Gran Pct Auto 0.4 % (0.0-0.4); Lymphocytes Absolute Auto 1.5 X10*3/uL (1.2-4.9); Mean Corpuscular HGB Conc 31.1 g/dl (31.0-35.0); Mean Corpuscular Hemoglobin 28.6 pg (27.0-33.0); Mean Corpuscular Volume 92.0 fL (80.0-98.0); NRBC Abs Auto 0.000 X10*3/uL (0.0-0.012); NRBC Pct Auto 0.0 /100WBC (0.0-0.2); Platelet Count 237 X10*3/uL (160-400); Red Blood Count 4.13 X10*6/uL (4.20-5.50); White Blood Count 5.1 X10*3/uL (4.8-10.8)
[2025-03-09 14:36] LABS: Alanine Aminotransferase 10 U/L (0-31); Albumin Level 3.8 g/dL (3.5-5.0); Alkaline Phosphatase 82 U/L (39-117); Anion Gap 14 (12-20); Aspartate Amino Transferase 19 U/L (5-31); Blood Urea Nitrogen 38 mg/dL (9-16); Calcium 9.4 mg/dL (8.4-10.2); Carbon Dioxide 22 mmol/L (22-29); Chloride 110 mmol/L (96-108); Estimated Glomerular Filt Rate 38; Ferritin 270 ng/mL (10-250); Iron 43 mcg/dL (30-160); Percent Iron Saturation 20 % (15-50); Potassium 4.0 mmol/L (3.3-5.1); Sodium 142 mmol/L (135-145); Total Iron Binding Capacity 212 mcg/dL (228-428); Total Protein 7.0 g/dL (6.5-8.0); Unsaturated Iron Binding 169 ug/dL
== END 2025-03-09 09:54 | disposition home or self-care (01) ==
LOC: HO.MANLDS 09:53
PROVIDERS: Visit Provider Physician Assistant
DX: Z13.89 Encounter for screening for other disorder (principal)
CPT/HCPCS: 36415; 80053; 82728; 83036; 83540; 85025

== ENCOUNTER 2025-03-13 08:04 | Outpatient (AMB) | payer MEDICARE, SELFPAY ==
--- NOTE | 2025-03-13 08:08 | MHC.OFFVIS ---
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 Accompanied by: Son Allergies sulfamethoxazole (From Bactrim) Allergy (Severe, Verified 03/13/25 08:12) rash/itching trimethoprim (From Bactrim) Allergy (Severe, Verified 03/13/25 08:12) rash/itching Penicillins Allergy (Mild, Verified 03/13/25 08:12) RASH pregabalin (From Lyrica) Allergy (Mild, Verified 03/13/25 08:12) Rash Oncxyqd-CMM-OhS Reductase Inhibitor (Statins: Hmg-Coa Reductase Inhibito) Allergy (Mild, Verified 03/13/25 08:12) RASH levofloxacin (From LEVAQUIN) Allergy (Unknown, Verified 03/13/25 08:12) RED RASH gabapentin Allergy (Verified 03/13/25 08:12) Unknown Medication List - Last Reconciled 03/13/25 by Yumiko Shelton, DIRECTOR ENTERPRISE DATA ARCHITECTURE-C acetaminophen (Acetaminophen Extra Strength) 500 mg PO Q6H PRN cephalexin 500 mg PO DAILY 90 days ferrous sulfate (iron) 325 mg PO BID fluoxetine 1 cap PO DAILY furosemide 20 mg See Protocol PO 4XW 30 days latanoprost 0.005% 1 drp ophthalmic (eye) BEDTIME methenamine hippurate 1 g PO DAILY 90 days omeprazole 20 mg PO BID@0630,1630 sucralfate 1 g PO TID sumatriptan succinate 1 tab PO DAILY MRX1 PRN vitamins A,C,K-sphm-mnmkmg 2,148 mcg-113 mg-45 mg-17.4mg (PreserVision AREDS) 1 tab PO DAILY HPI HPI ED follow up (hs ): Details: Renita is an 89-year-old female with past medical history of remote breast CA, recurrent UTIs, iron deficiency anemia who was recently admitted to [facility] with atypical chest discomfort, weight gain and concern for Congestive heart failure. Her chest x-ray did show some mild pulmonary vascular congestion. BNP elevated at 3500, troponins were negative. She had been on a 1 month course of prednisone for her knee osteoarthritis. During that time. She gained 10-12 lb. Ultimately she ruled out for ACS and was not felt to have significant Congestive heart failure. Her echocardiogram did show normal EF and severe LVH. Today she reports she has been doing very well since her hospital discharge. She no longer has any chest discomfort. She denies shortness of breath, PND, orthopnea or edema of ankles. She still has some mild swelling in her knees. She tells me when she was taking prednisone her appetite increased and she was eating frequently which accounts for the weight gain. She is now working on diet and weight control. No heart palpitations, lightheadedness, presyncope, syncope. She reports good activity tolerance and is on her way to the [employer] today. Her grandson is present. [facility] Medical History Glaucoma Recurrent UTI Iron deficiency anemia Chronic upper gastrointestinal bleeding Migraine Acute anemia Cataracts, bilateral FH: total knee replacement Cholecystectomy planned Diverticulitis Hx of breast cancer Iron deficiency anemia Surgical History History of colostomy reversal H/O total knee replacement H/O colonoscopy Cataract Family History Sister Breast cancer Diabetes Mother Diabetes Social History Household Members: Children Household Members Other:: 3 Housing: House Are you a primary certified caregiver to a significant other at home: No Do you presently have visiting nurse or other home services: No Alcohol intake: never Comment: Pt low fall risk Patient Tobacco Use Status: Former Tobacco user service: No Current occupational status: retired Review of Systems Const All systems reviewed & are unremarkable except as noted in HPI and below Denies daytime sleepiness, Denies difficulty sleeping, Denies snoring, Denies stops breathing during sleep and Denies weakness Card Denies chest pain, Denies rapid heart rate, Denies irregular heart rhythm, Denies claudication, Denies leg edema, Denies lightheadedness, Denies palpitations, Denies dyspnea, Denies dyspnea on exertion, Denies orthopnea, Denies paroxysmal nocturnal dyspnea and Denies slow heart rate Resp Denies cough, Denies dyspnea, Denies dyspnea on exertion and Denies snoring GI Reports no additional complaints, Denies hematochezia, Denies change in stool character and Denies dyspepsia Musc Details: bilateral knee pain and swelling Denies abnormal gait, Denies muscle weakness and Denies numbness Neuro Denies abnormal gait, Denies numbness and Denies weakness Endo Denies palpitations Physical Exam Vital Signs: Last Vital Signs Pulse 66 03/13/25 08:09 BP 118/66 03/13/25 08:09 BMI result Body Mass Index 25.3 Const General: cooperative, healthy appearing, comfortable and no acute distress Orientation/consciousness: patient oriented x3 HEENT Head: Yes normal to inspection Resp Effort & Inspection: normal respiratory effort Auscultation: clear to auscultation bilaterally, no crackles, no rales, no rhonchi and no wheezes Cardio Jugular venous distension: no JVD Rate: regular rate Rhythm: regular rhythm Heart sounds: S1 normal heart sound present, S2 normal heart sound present, no gallops, no murmurs and no rubs Neuro General: patient oriented x3 Extrem General: Yes normal to inspection, No no pedal edema and No calf tenderness Psych Appearance: grossly normal Mental Status: mental status grossly normal Speech and movement: Normal speech and movement present Assessment & Plan Assessment & Plan (1) Chest discomfort: Code(s): R07.89 - Other chest pain Category: Medical Plan: [facility] evaluation for atypical chest discomfort. She ruled out for ACS. EKG was nonischemic. Troponins negative. Echocardiogram did not show regional wall motion abnormalities. Currently reports chest discomfort resolved. (2) CHF exacerbation: Code(s): I50.9 - Heart failure, unspecified Category: Medical Plan: [facility] evaluation for weight gain. Her chest x-ray did show mild pulmonary vascular congestion. A CTA of the chest showed mildly enlarged heart size, enlarged main pulmonary artery, hiatal hernia and no pulmonary embolism. Her echocardiogram showed EF 60%, severe LV wall thickness, mild to moderate TR. No reported history of hypertension. Does report being obese in the past. Her weight gain was felt to be related to prednisone use. She was given a limited course of diuretics following hospital discharge. No signs of fluid overload on exam. Signs and symptoms of heart failure reviewed with her. She is at risk for fluid retention with her severe LVH. Will plan a recheck of echo in 1 year. Cardiology follow-up 1 year, sooner if needed (3) LVH (left ventricular hypertrophy): Code(s): I51.7 - Cardiomegaly Category: Medical Plan: As above (4) Hospital discharge follow-up: Code(s): Z09 - Encounter for follow-up examination after completed treatment for conditions other than malignant neoplasm Category: Medical Plan: Discharge summary and cardiology consult reviewed Plan I discussed with the patient the findings of the echocardiogram, which showed left ventricular hypertrophy but normal heart function. We talked about the importance of monitoring for symptoms such as chest discomfort, dyspnea, and edema. I recommended a follow-up echocardiogram in one year to assess any changes. We also discussed the impact of prednisone on weight gain and the plan to manage this by discontinuing the medication. The patient was advised to report any new or worsening symptoms promptly. Patient Instructions: - Monitor for symptoms like chest pain, shortness of breath, or swelling. - Follow up with an echocardiogram in one year. - Report any new or worsening symptoms to the healthcare provider. Patient was informed and verbally consented to the use of an ambient scribe for clinic note documentation during this visit. Visit time spent on chart review, interview, assessment, orders, documentation. Coding Level of Care Code Est Pt Level 4 (93905) Complex EM visit Add On G2211 Diagnoses Chest discomfort R07.89 CHF exacerbation I50.9 LVH (left ventricular hypertrophy) I51.7 Hospital discharge follow-up Z09 Time Spent (min) 28
[2025-03-13 08:09] VITALS: BP 118/66; PULSE 66; BMI 25.3
== END 2025-03-13 08:34 | disposition home or self-care (01) ==
LOC: HO.HCS 08:05
PROVIDERS: PCP Internal Medicine; Visit Provider Nurse Practitioner Family
DX: R07.89 Other chest pain (principal); I50.9 Heart failure, unspecified; I51.7 Cardiomegaly; Z09 Encounter for follow-up examination after completed treatment for conditions other than malignant neoplasm
CPT/HCPCS: 99214; G2211

== ENCOUNTER → 2025-03-13 08:04 | Outpatient (BNVA) | payer MEDICARE, SELFPAY | PROVIDERS: PCP Internal Medicine; Visit Provider Nurse Practitioner Family | DX: R07.89 Other chest pain (principal); I51.7 Cardiomegaly; Z09 Encounter for follow-up examination after completed treatment for conditions other than malignant neoplasm; I50.1 Left ventricular failure, unspecified; Z87.891 Personal history of nicotine dependence | CPT/HCPCS: 99212 ==

== ENCOUNTER 2025-04-23 13:54 | Outpatient (AMB) | payer MEDICARE, SELFPAY ==
[2025-04-23 14:17] VITALS: BP 122/70; PULSE 86; O2SAT 96
--- NOTE | 2025-04-23 14:17 | A.OFFVISCC_ITS ---
Vital Signs 04/23/25 14:17 BP 122/70 Pulse 86 Pulse Oximetry (%) 96 Intake Visit Reasons: follow up cephalexin Allergies sulfamethoxazole (From Bactrim) Allergy (Severe, Verified 04/23/25 14:18) rash/itching trimethoprim (From Bactrim) Allergy (Severe, Verified 04/23/25 14:18) rash/itching Penicillins Allergy (Mild, Verified 04/23/25 14:18) RASH pregabalin (From Lyrica) Allergy (Mild, Verified 04/23/25 14:18) Rash Eoxfixm-JAQ-YzF Reductase Inhibitor (Statins: Hmg-Coa Reductase Inhibito) Allergy (Mild, Verified 04/23/25 14:18) RASH levofloxacin (From LEVAQUIN) Allergy (Unknown, Verified 04/23/25 14:18) RED RASH gabapentin Allergy (Verified 04/23/25 14:18) Unknown HPI Comments Details: History of Present Illness The patient is an 89 year old female presenting for an annual follow-up visit for management of recurrent urinary tract infections. She has had no UTIs on her current prophylactic regimen of Keflex 500 mg daily and methenamine hippurate 1 gram daily. She reports slight incontinence, for which she uses pads, but denies any burning. Her primary care provider is Dr. Hameed. Results Review of Systems Narrative Review of Systems - Genitourinary: Reports slight urinary incontinence. Denies dysuria. Physical Exam Exam Exam: Physical Exam - Vitals: Stable. - General: Afebrile. - HEENT: Oropharynx clear. - Respiratory: Lungs clear. - Cardiovascular: Regular rhythm. - Abdomen: Soft, non-tender. Vital Signs: Last Vital Signs Pulse 86 04/23/25 14:17 BP 122/70 04/23/25 14:17 Pulse Ox 96 04/23/25 14:17 [facility] Medical History Glaucoma Recurrent UTI Iron deficiency anemia Chronic upper gastrointestinal bleeding Migraine Acute anemia Cataracts, bilateral FH: total knee replacement Cholecystectomy planned Diverticulitis Hx of breast cancer Iron deficiency anemia Surgical History History of colostomy reversal H/O total knee replacement H/O colonoscopy Cataract Family History Sister Breast cancer Diabetes Mother Diabetes Social History Household Members: Children Household Members Other:: 3 Housing: House Are you a primary child care coordinator to a significant other at home: No Do you presently have visiting nurse or other home services: No Alcohol intake: never Comment: Pt low fall risk Patient Tobacco Use Status: Former Tobacco user service: No Current occupational status: retired Assessment & Plan Assessment & Plan (1) Recurrent UTI: Comment: She is doing well. She has no rash or diarrhea. She should continue daily Keflex 500 mg and methenamine 1 g daily, now 90 day supply and three refills. Let us know if trouble with 90 day supplies as I intend to keep her on it indefinitely. See her in one year. Code(s): N39.0 - Urinary tract infection, site not specified Category: Medical Plan Plan Patient was informed and verbally consented to the use of an ambient scribe for clinic note documentation during this visit. 1. Urinary tract infection, site not specified N39.0 The patient has remained free of urinary tract infections on her current prophylactic regimen. She will continue taking Keflex 500 mg daily and methenamine hippurate 1 gram daily. Refills for both medications will be provided for a 90-day supply with 3 refills. Follow-up will be in one year. 2. Urinary Incontinence The patient reports slight incontinence which she manages with pads. No change in management was discussed. Discussion Notes I noted the patient is doing well on her current regimen for recurrent UTI prevention, as she has not had any recent infections. We will be refilling both her methenamine and cephalexin for 90 days with 3 refills and she will follow up in one year. Medical Decision Making The patient is an 89-year-old female seen for an annual follow-up for recurrent UTIs. She is stable and has had no breakthrough UTIs on her prophylactic regimen of Keflex 500 mg daily and methenamine hippurate 1 gram daily. The physical exam was unremarkable. Given the efficacy of the current treatment, the plan is to continue the medication regimen and provide refills. A follow-up in one year is appropriate for continued monitoring. Patient Instructions - Continue taking your daily medications, Keflex 500 mg and methenamine 1 gram, to prevent urinary tract infections. - We have sent refills for both of your medications to the pharmacy for a 90-day supply with 3 additional refills. - Please schedule a follow-up appointment to be seen again in one year. Medications: Refilled cephalexin 500 mg PO DAILY 90 caps 3RF 90 days methenamine hippurate 1 g PO DAILY 90 tabs 3RF 90 days
--- OUTSIDE RECORDS SUMMARY | 2025-04-23 16:10 | XMS_ITS | Encounter Summary ---
Author Organization [facility] Address [address] [place] [address] Phone Care Team Providers Care Reservoir Engineering Manager Name Role Phone Jl Hameed DO Primary Care Provider Encounter Details Date Type Department Care Team (Late st Contact Info) Description 10/02/2019 Transcribe Orders [facility] Phleb [address] [address] Dawood Allred MD [address] [place] [address] Iron deficiency anemia secondary to blood loss [...] EDT) WBC 4.20 4.00 - 11.00 K/uL [facility] Comment:Note Reference Range updates to all CBC and Differential results. RBC 4.28 3.72 - 5.30 M/uL [facility] HGB 10.3(L) 11.4 - 15.9 g/dL [facility] Comment:Note updated Referen ce Ranges for all CBC and Differential results. HCT 33.9(L) 34.2 - 46.8 % [facility] PLT 335 140 - 430 K/uL [facility] MCV 79.2 78.0 - 97.0 fL [facility] MCH 24.1(L) 25.0 - 33.0 pg [facility] MCHC 30.4(L) 32.0 - 36.0 g/dL [facility] RDW 17.7(H) 11.0 - 16.0 % [facility] MPV 10.8 8.4 - 12.8 fl [facility] NRBC 0.00 0 /100 WBCs [facility] ABSOLUTE NRBC 0.00 0 K/uL [facility] DIFF METHOD Auto [facility] NEUTS 58.1 43.0 - 75.0 % [facility] LYMPHS 26.0 18.2 - 47.4 % [facility] MONOS 10.0 4.00 - 11.00 % [facility] EOS 4.5 0.0 - 8.0 % [facility] BASOS 1.2 0.0 - 2.0 % [facility] Granulocytes, immature (%) 0.2 0.0 - 0.9 % [facility] ABSOLUTE NEUTS 2.44 1.80 - 7.70 K/uL [facility] ABSOLUTE LYMPHS 1.09 1.00 - 3.10 K/uL [facility] ABSOLUTE MONOS 0.42 0.20 - 0.80 K/uL [facility] ABSOLUTE EOS 0.19 0.00 - 0.80 K/uL [facility] ABSOLUTE BASOS 0.05 0.00 - 0.09 K/uL [facility] Granulocytes, immature 0.01 0.00 - 0.05 K/uL [facility] Blood 10/02/2019 11:0 9 AM EDT 10/02/2019 11:23 AM EDT us Dawood Allred MD LAB BLOOD BKR ORDERABLES Fi nal Result [facility] [address] [place] [address] * Ferritin (10/02/2019 11:09 AM EDT) Pathologist [facility] FERRITIN 36 13 - 150 ug/L [facility] Blood 10/02/2019 11:0 9 AM EDT 10/02/2019 11:23 AM EDT us Dawood Allred MD LAB BLOOD BKR ORDERABLES Fi nal Result Performing Organization Address City/[facility]/ZIP Co de Phone Number [address] [address] * (ABNORMAL) Iron and iron binding capacity (10/02/2019 11:09 AM EDT) IRON 32 30 - 160 ug/dL [facility] IRON BINDING CAPACITY 343 228 - 428 ug/dL [facility] TRANSFERRIN SATURAT. 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 It is not the complete legal health record.[facility]
--- OUTSIDE RECORDS SUMMARY | 2025-04-23 16:11 | XMS_ITS | Encounter Summary ---
Author Organization [facility] Address [address] [place] [address] Phone Care Team Providers Care Painter Shipyard Name Role Phone Jl Hameed DO Primary Care Provider [phone] Encounter Details Date Type Department Care Team (Late st Contact Info) Description 04/14/2019 Transcribe Orders [facility] [address] [address] Dawood Allred MD [address] [place] [address] Anemia, unspecified type (Primary Dx) Social History [...] EST) WBC 6.20 3.40 - 11.20 K/uL [facility] RBC 4.11 3.80 - 4.80 M/uL [facility] HGB 9.4(L) 12.0 - 15.0 g/dL [facility] HCT 31.9(L) 36.0 - 46.0 % [facility] PLT 343 130 - 400 K/uL [facility] MCV 77.6(L) 79.0 - 98.0 fL [facility] MCH 22.9(L) 27.0 - 34.8 pg [facility] MCHC 29.5(L) 31.5 - 36.0 g/dL [facility] RDW 15.9(H) 10.8 - 14.6 % [facility] MPV 10.2 9.4 - 12.4 fl [facility] NRBC 0.00 0.00 /100 WBCs [facility] ABSOLUTE NRBC 0.00 0.00 K/uL [facility] DIFF METHOD Auto [facility] NEUTS 70.2 45.30 - 77.70 % [facility] LYMPHS 16.9 12.30 - 39.70 % [facility] MONOS 10.8 4.10 - 12.80 % [facility] EOS 1.1 0 - 7.2 % [facility] BASOS 0.8 0 - 2.80 % [facility] Granulocytes, immature (%) 0.2 0.0 - 0.9 % [facility] ABSOLUTE NEUTS 4.35 1.40 - 7.70 K/uL [facility] ABSOLUTE LYMPHS 1.05 0.60 - 3.20 K/uL [facility] ABSOLUTE MONOS 0.67(H) 0.11 - 0.59 K/uL [facility] ABSOLUTE EOS 0.07 0.01 - 0.50 K/uL [facility] ABSOLUTE BASOS 0.05 0.00 - 0.08 K/uL [facility] Granulocytes, immature 0.01 0.00 - 0.05 K/uL [facility] Blood 04/14/2019 12:1 2 PM EST 04/14/2019 12:17 PM EST us Dawood Allred MD LAB BLOOD BKR ORDERABLES Fi nal Result [address] [address] * (ABNORMAL) Iron and iron binding capacity (04/14/2019 12:12 PM EST) IRON 15(L) 30 - 160 ug/dL [facility] IRON BINDING CAPACITY 302 228 - 428 ug/dL [facility] TRANSFERRIN SATURAT. 5(L) 15 - 50 % [facility] Blood 04/14/2019 12:1 2 PM EST 04/14/2019 12:17 PM EST us Dawood Allred MD LAB BLOOD BKR ORDERABLES Fi nal Result Performing Organization Address City/[facility]/ZIP Co de Phone Number [address] [address] * Ferritin (04/14/2019 12:12 PM EST) FERRITIN 34 13 - 150 ug/L [facility] Blood 04/14/2019 12:1 2 PM EST 04/14/2019 12:17 PM EST us Dawood Allred MD LAB BLOOD BKR ORDERABLES Fi nal Result Performing Organization Address [facility] Co de Phone Number [address] [address] documented in this encounter Visit Diagnoses Diagnosis Anemia, unspecified type- Primary documented in this encounter Care Teams Painter Shipyard Relationship Specialty Start Date End Date Jl Hameed DO [email or web address] PCP - General 04/29/17 documented as of this encounter Additional Source Comments The information contained in this document represents components of the legal health record. It is not the complete legal health record.[facility]
--- OUTSIDE RECORDS SUMMARY | 2025-04-23 16:11 | XMS_ITS | Clinical Summary ---
Author Organization [facility] Address [address] [place] [id number] Phone Care Team Providers Care Placement Manager Name Role Phone Jl Hameed DO Primary Care Provider [phone] Allergies Active Allergy Reactions Criticality Noted Date Comments Gabapentin 11/14/2020 Levofloxacin 06/26/2014 Other reaction(s): Unknown Penicillins Rash 03/04/2007 Pregabalin 11/14/2020 Udecxjp-Qyp-Jsr Reductase Inhibitors 11/14/2020 Medications celecoxib (CELEBREX) 200 MG capsule celecoxib 200 mg capsule Active ferrous sulfate 325 mg (65 mg orutsararmiut iron) tablet Iron (ferrous sulfate) 325 mg [...] gram tablet TAKE 1 TABLET BY MOUTH FOUR TIMES DAILY ON AN EMPTY STOMACH 5 Active SUMAtriptan (IMITREX) 100 MG tablet sumatriptan 100 mg tablet TAKE 1 TABLET AT ONSET OF MIGRAINE, MAY TAKE 1 EXTRA DOSE 2 HOURS LATER NEEDED Active furosemide (LASIX) 20 MG tablet Take 20 mg by mouth 4 (four) times a week. Active omeprazole (PRILOSEC) 20 MG capsule Take 20 mg by mouth 2 (two) times a day. Active CLINDAMYCIN HCL ORAL Take 150 mg by mouth as needed ( NEEDED FOR DENTAL WORK). Active acetaminophen (TYLENOL) 500 MG tablet Take 1,000 mg by mouth every 4 (four) hours as needed for fever or pain (specific location in comments). 5 Active multivit-min/fo lic acid/lutein (CENTRUM SILVER ORAL) Take 1 capsule by mouth daily. Active vit A/vit C/vit E/zinc/copper (PRESERVISION AREDS ORAL) Take 1 capsule by mouth daily. Active cephalexin (KEFLEX) 500 MG capsule Take 500 mg by mouth daily. Active methenamine (HIPREX) 1 gram tablet Take 1 g by mouth daily. Active Encounters Date Type Department Care Team Description 03/14/2025 1:00 PM EST [facility] [address] [place] [address] Dana Govea RN SN OASIS DISCHARGE VISIT 03/08/2025 1:00 PM EST [facility] [address] [place] [address] Dana Govea RN SN HOME VISIT 03/06/2025 Episode Documentatio n Update [facility] [address] [place] [address] Sheri Blackman 03/05/2025 2:00 PM EST Home Care Visit [facility] [address] [place] [address] Dana Govea RN SN HOME VISIT 03/01/2025 2:00 PM EST [facility] Visit [facility] [address] [place] [address] Dana Govea, CAREY SN HOME VISIT 03/01/2025 12:00 PM EST Home Care Visit [facility] [address] [place] [address] Kailyn Camejo, OT OT EVALUATION 02/27/2025 12:45 PM EST Home Care Visit [facility] [address] [place] [address] Yenni Toussaint LPN [employer] HOME VISIT 02/26/2025 Home Care Visit [facility] [address] [place] [address] Kailyn Camejo, OT TELEPHONE ENCOUNTER 02/26/2025 Home Care Visit [facility] [address] [place] [address] Kailyn Camejo, OT TELEPHONE ENCOUNTER 02/22/2025 1:30 PM EDT Home Care Visit [facility] [address] [place] [phone] Noam Montes De Oca RN SN OASIS START OF CARE (SOC) 02/22/2025 Plan of Care Documentation [facility] [address] [place] [address] 02/20/2025 Orders Only [facility] [address] [place] [address] Homehealth, Interface ProviderMD from Last 3 Months Immunizations Immunization Administration [...] Date Smoking Tobacco: Former Smokeless Tobacco: Never Home Health Assessment: Transportation Answer Date Recorded Lack of Transportation (Medical) No 03/14/2025 Lack of Transportation (Non-Medical) No 03/14/2025 Patient Unable or Declines to Respond No 03/14/2025 Education Answer Date Recorded Are you interested [...] Sign Reading Time Taken Comments Blood Pressure 120/60 03/14/2025 1:00 PM EST Pulse 80 03/14/2025 1:00 PM EST Temperature 36.4 C (97.5 F) 03/14/2025 1:00 PM EST Respiratory Rate 18 03/14/2025 1:00 PM EST Oxygen Saturation 98% 03/14/2025 1:00 PM EST Inhaled Oxygen Concentration - - Weight 70.1 kg (154 lb 9.6 oz) 02/27/2025 12:16 PM EST Height 165.1 cm (5' 5 ) 11/14/2020 [...] this topic Medical Devices Not on file [place] [id number] [facility] MEDEX SUPPLEMENT MEDICARE PART A & B [employer] MEDEX SUPPLEMENT MEDICARE PART A & B [employer] MEDEX SUPPLEMENT MEDICARE PART A & B [employer] MEDEX SUPPLEMENT MEDICARE PART A & B [employer] MEDEX SUPPLEMENT MEDICARE PART A & B [employer] MEDEX SUPPLEMENT MEDICARE PART A & B [facility] MEDEX SUPPLEMENT MEDICARE PART A & B [employer] MEDEX SUPPLEMENT MEDICARE PART A & B [employer] MEDEX SUPPLEMENT Care Teams Placement Manager Relationship Specialty Start Date End Date Jl Hameed DO [email or web address] PCP - General 04/29/17 Additional Source Comments The information contained in this document represents components of the legal health record. It is not the complete legal health record.[facility]
== END 2025-04-23 14:33 | disposition home or self-care (01) ==
LOC: HO.HID 13:54
PROVIDERS: PCP Internal Medicine; Visit Provider Internal Medicine
DX: N39.0 Urinary tract infection, site not specified (principal)
CPT/HCPCS: 99213

== ENCOUNTER → 2025-04-23 13:54 | Outpatient (BNVA) | payer MEDICARE, SELFPAY | PROVIDERS: PCP Internal Medicine; Visit Provider Internal Medicine | DX: N39.0 Urinary tract infection, site not specified (principal); R32 Unspecified urinary incontinence | CPT/HCPCS: 99212 ==

== ENCOUNTER 2025-04-24 19:24 | Emergency (ER) | payer MEDICARE, SELFPAY ==
--- NOTE | ~2025-04-24 | CT_ITS ---
CLINICAL HISTORY: trauma CT cervical spine without contrast Comparison: None provided Findings: No acute fracture or dislocation. Moderate degenerative change. Multilevel slight anterolisthesis. Alignment abnormality likely chronic. No radiopaque foreign bodies. Impression: No acute processes This document has been electronically signed by: Brendan Alegria MD on 04/24/2025 21:24:29
--- NOTE | ~2025-04-24 | CT_ITS ---
CLINICAL HISTORY: trauma CT head without contrast Comparison: None provided Findings: No acute intracranial fluid collection or hematoma. Moderate chronic white matter disease with volume loss. No acute process in sinuses or mastoids. No acute bony abnormality. Impression: No acute intracranial process This document has been electronically signed by: Brendan Alegria MD on 04/24/2025 21:26:19
--- NOTE | ~2025-04-24 | XR_ITS ---
CLINICAL HISTORY: trauma 2 views right hip with AP pelvis Comparison: None Findings: No fractures or dislocations. No significant hip arthritic change. Lower lumbar degenerative changes are present. No radiopaque foreign body. Impression: 1. No fracture or dislocation. This document has been electronically signed by: Ulysses Mckeon MD on 04/24/2025 20:50:17
--- NOTE | 2025-04-24 19:37 | ECG_ITS ---
Test Reason : FALL Blood Pressure : */* mmHG Vent. Rate : 72 BPM Atrial Rate : 72 BPM P-R Int : 196 ms QRS Dur : 88 ms QT Int : 398 ms P-R-T Axes : 65 -8 15 degrees QTcB Int : 435 ms Normal sinus rhythm Minimal voltage criteria for LVH, may be normal variant ( R in aVL ) Borderline ECG When compared with ECG of 18-Feb-2025 17:58, Premature atrial complexes are no longer Present Referred By: Suman Adams Electronically Signed By: FUNMILAYO PAYTON
[2025-04-24 19:41] VITALS: BP 154/68; PULSE 75; RESP 16; TEMP 36.7; O2SAT 98; BMI 24.7
--- NOTE | 2025-04-24 19:41 | ED.GENADULT ---
HPI - General Adult General Chief complaint: Fall Stated complaint: fell in garage R hip & leg pain Time Seen by Provider: 04/24/25 19:29 Source: patient, RN notes reviewed and old records reviewed Mode of arrival: EMS Limitations: no limitations History of Present Illness ED Provider: Bryan HPI narrative: 89-year-old female presents for evaluation of a fall. Patient has a history of LVH, CHF, pulmonary hypertension, glaucoma, iron-deficiency anemia, arthritis, previous breast cancer. The patient reports a her grandson put a box into the large trash bin that goes by the side of the street. The patient reports that she climbed in the trash bin attempted to retrieve box to read some instructions She states that while she was exiting the trash bin she fell onto her buttocks. She denies hitting her head or losing consciousness pain She complains of mostly right-sided hip pain that goes towards her buttocks. Denies any other injuries Related Data Home Medications ?Medication ?Instructions ?Recorded ?Confirmed fluoxetine 20 mg capsule 1 cap PO DAILY 04/04/20 03/13/25 latanoprost 0.005 % eye drops 1 drp ophthalmic (eye) BEDTIME 04/04/20 03/13/25 sumatriptan succinate 100 mg tablet 1 tab PO DAILY MRX1 PRN Migraine 04/04/20 03/13/25 Headache ferrous sulfate 325 mg (65 mg 325 mg PO BID 07/02/20 03/13/25 iron) tablet (iron) acetaminophen 500 mg tablet 500 mg PO Q6H PRN Pain/Migraine 02/19/25 03/13/25 (Acetaminophen Extra Strength) sucralfate 1 gram tablet 1 g PO TID 02/19/25 03/13/25 vitamins A,C,P-ztpd-dyhnyv 2,148 1 tab PO DAILY 02/19/25 03/13/25 mcg-113 mg-45 mg-17.4 mg tablet (PreserVision AREDS) Previous Rx's ?Medication ?Instructions ?Recorded omeprazole 20 mg capsule,delayed 20 mg PO BID@0630,1630 #60 caps 12/17/22 release furosemide 20 mg tablet 20 mg PO 4XW 30 days #18 tabs 02/20/25 cephalexin 500 mg capsule 500 mg PO DAILY 90 days #90 caps 04/23/25 methenamine hippurate 1 gram tablet 1 g PO DAILY 90 days #90 tabs 04/23/25 Allergies Allergy/AdvReac Type Severity Reaction Status Date / Time sulfamethoxazole (From Allergy Severe rash/itchin Verified 04/24/25 19:45 Bactrim) g trimethoprim (From Bactrim) Allergy Severe rash/itchin Verified 04/24/25 19:45 g Penicillins Allergy Mild RASH Verified 04/24/25 19:45 pregabalin (From Lyrica) Allergy Mild Rash Verified 04/24/25 19:45 Dlpaypl-OPC-ZvX Reductase Allergy Mild RASH Verified 04/24/25 19:45 Inhibitor (Statins: Hmg-Coa Reductase Inhibito) levofloxacin (From LEVAQUIN) Allergy Unknown RED RASH Verified 04/24/25 19:45 gabapentin Allergy Unknown Verified 04/24/25 19:45 Review of Systems Constitutional: Constitutional: Denies body ache(s), Denies chills, Denies fever(s), Denies frequent falls and Denies headache(s) Eyes: Eyes: Denies blurry vision ENT: Denies vertigo, Denies dizziness and Denies headache(s) Cardiovascular: Cardiovascular: Denies chest pain and Denies dyspnea on exertion Respiratory: Respiratory: Denies cough and Denies dyspnea on exertion Gastrointestinal: Gastrointestinal: Denies abdominal pain, Denies nausea and Denies vomiting Musculoskeletal: Musculoskeletal: Denies back pain, Reports arthralgias, Reports joint swelling and Reports limited range of motion Integumentary/Breasts: Skin/Breast: Denies rash Neurologic: Denies vertigo, Denies dizziness, Denies frequent falls and Denies headache(s) Psychiatric: Psychiatric: Denies anxiety PMF Past Medical History Medical History Glaucoma Recurrent UTI Iron deficiency anemia Chronic upper gastrointestinal bleeding Migraine Acute anemia Cataracts, bilateral FH: total knee replacement Cholecystectomy planned Diverticulitis Hx of breast cancer Iron deficiency anemia Surgical History History of colostomy reversal H/O total knee replacement H/O colonoscopy Cataract Family History Family History Sister Breast cancer Diabetes Mother Diabetes Social History Social History Household Members: Children Household Members Other:: 3 Housing: House Are you a primary primary care nurse to a significant other at home: No Do you presently have visiting nurse or other home services: No Alcohol intake: never Comment: Pt low fall risk Patient Tobacco Use Status: Former Tobacco user Advance Directives: No Advance Directives Information Provided: No Do you have a plan to hurt others: No Plan service: No Current occupational status: retired Physical Exam ED Vital Signs: Vital Signs - 24 hr 04/24/25 19:41 Temperature 98.1 F Pulse Rate 75 Respiratory Rate 16 Blood Pressure 154/68 H Pulse Oximetry 98 Oxygen Delivery Method Room Air BMI result Body Mass Index 24.7 Const General: healthy appearing, comfortable, no acute distress, alert and awake Nutritional Appearance: well nourished Orientation/consciousness: patient oriented x3 HENMT Head: Yes normocephalic and Yes atraumatic Eyes Eyelids: Yes eyelids normal Conjunctivae: conjunctivae normal Sclerae: sclerae normal Corneas: corneas normal Pupils: Equal, round and reactive pupils present EOM: EOMs intact bilaterally Neck Neck: Yes full ROM Resp Effort & Inspection: normal respiratory effort, able to speak in complete sentences and not labored Cardio Rate: regular rate Rhythm: regular rhythm GI Inspection: No distended Palpation (GI): Soft to palpation, not firm, nontender, no guarding and not rigid Skin General skin exam: elasticity normal Neuro General: patient oriented x3 Cranial nerves: Yes Equal, round and reactive pupils present and Yes Bilaterally intact EOM present Course Reevaluation(s) Reevaluation #1: Patient's workup largely unremarkable, she had an x-ray of the hip and pelvis as well as a CT scan of the brain and cervical spine did not show any evidence of traumatic injury. Her labs were reassuring. She does have a mild anemia that she has had in the past, no significant chemistry abnormalities. Her pro BNP was elevated but she has no overt signs of congestive heart failure, no leg edema, she is not short of breath, no crackles on exam and she is not hypoxic, tachypneic or tachycardic. I discussed the workup with the patient and her grandson who is bedside. The patient will like to be discharged home, she was able to ambulate with a walker. We will discharge her home with lidocaine patches and cyclobenzaprine for muscle spasms. Patient was offered physical therapy and case management evaluation but declines this Time: 21:44 Medical Decision Making Medical Decision Making [facility] Narrative: 89-year-old female with a past medical history as above presents for evaluation after a fall. This is described as a nonsyncopal fall but was not witnessed. The patient is able to crawl into the house to call for help. She complains of right hip pain. She is in his C-collar. We will get a CT scan of the brain and cervical spine as this was an unwitnessed fall and she is potentially distracting injuries. We will also pain x-ray of the right hip with pelvis. We will check screening labs, EKG and a urinalysis. Differential Diagnosis Differential Diagnoses: The differential diagnosis associated with the presentation includes Mechanical fall Hip fracture Contusion Hip dislocation Cervical fracture Intracranial hemorrhage Lab Data [facility] Lab Attestation statement: I reviewed the patient's lab results. 04/24/25 20:13 04/24/25 20:13 Labs: Lab Results 04/24/25 Range/Units 20:13 WBC 4.9 (4.8-10.8) X10*3/uL RBC 3.49 L (4.20-5.50) X10*6/uL Hgb 9.6 L (12.0-16.0) g/dl Hct 30.7 L (37.0-47.0) % MCV 88.0 (80.0-98.0) fL MCH 27.5 (27.0-33.0) pg MCHC 31.3 (31.0-35.0) g/dl RDW 14.6 (11.0-16.0) % Plt Count 268 (160-400) X10*3/uL MPV 10.3 (9.4-12.3) fL Immature Gran % (Auto) 1.2 H (0.0-0.4) % Neut % (Auto) 75.4 H (45-73) % Lymph % (Auto) 13.4 L (20-40) % Rich % (Auto) 9.2 (2-11) % Eos % (Auto) 0.6 (0-4) % Baso % (Auto) 0.2 (0-2) % Lymph # (Auto) 0.7 L (1.2-4.9) X10*3/uL Rich # (Auto) 0.5 (0.1-1.2) X10*3/uL Eos # (Auto) 0.0 (0.0-0.4) X10*3/uL Baso # (Auto) 0.0 (0.0-0.2) X10*3/uL Abs Immat Gran (auto) 0.06 H (0.00-0.03) X10*3/uL Absolute Neuts (auto) 3.7 (2.0-8.3) x10*3/uL Absolute Nucleated RBC 0.000 (0.0-0.012) X10*3/uL Nucleated RBC % (auto) 0.0 (0.0-0.2) /100WBC Sodium 140 (135-145) mmol/L Potassium 4.8 (3.3-5.1) mmol/L Chloride 111 H (96-108) mmol/L Carbon Dioxide 19 L (22-29) mmol/L Anion Gap 15 (12-20) BUN 29 H (9-16) mg/dL Creatinine 1.38 (0.5-1.4) mg/dL Estim Creat Clear Calc 24.8 Estimated GFR 36 Random Glucose 124 H (60-115) mg/dL Calcium 9.4 (8.4-10.2) mg/dL Total Bilirubin 0.2 (0.0-1.0) mg/dL AST 26 (5-31) U/L ALT 10 (0-31) U/L Alkaline Phosphatase 73 (39-117) U/L Troponin I High Sens 4.5 (<3.5-17.0) ng/L NT-Pro-B Natriuret Pep 2352.8 H (<300) pg/mL Total Protein 6.9 (6.5-8.0) g/dL Albumin 3.5 (3.5-5.0) g/dL Lipase 16 (8-78) U/L Radiology Impression Discussion of test interpretation with radiology: I have reviewed the radiologist's reading. Radiologist Impression: Findings: No acute intracranial fluid collection or hematoma. Moderate chronic white matter disease with volume loss. No acute process in sinuses or mastoids. No acute bony abnormality. Impression: No acute intracranial process This document has been electronically signed by: Brendan Alegria MD on 04/24/2025 21:26:19 Findings: No acute fracture or dislocation. Moderate degenerative change. Multilevel slight anterolisthesis. Alignment abnormality likely chronic. No radiopaque foreign bodies. Impression: No acute processes This document has been electronically signed by: Brendan Alegria MD on 04/24/2025 21:24:29 Findings: No fractures or dislocations. No significant hip arthritic change. Lower lumbar degenerative changes are present. No radiopaque foreign body. Impression: 1. No fracture or dislocation. This document has been electronically signed by: Ulysses Mckeon MD on 04/24/2025 20:50:17 Discharge Plan Discharge Clinical Impression: Acute pain of right lower extremity Patient Disposition: Home, Self-Care Instructions: Leg Pain (ED) Additional Instructions: Your workup in the ER today was reassuring. Use Tylenol as needed for pain. Use lidocaine patches as necessary in you may also use cyclobenzaprine for muscle spasms. This will make you drowsy, do not drink alcohol or drive after taking it. It may be helpful to take this prior to bedtime only You may also use ice or heat, whichever feels more comfortable for a Prescriptions: No Action latanoprost 0.005 % drops 1 drp ophthalmic (eye) BEDTIME sumatriptan succinate 100 mg tablet 1 tab PO DAILY MRX1 PRN (Reason: Migraine Headache) Rx Instructions: MRX1 after 2 hours fluoxetine 20 mg capsule 1 cap PO DAILY ferrous sulfate [iron] 325 mg (65 mg iron) Tablet 325 mg PO BID omeprazole 20 mg Capsule,Delayed Release(Dr/Ec) 20 mg PO BID@0630,1630 Qty: 60 0RF sucralfate 1 gram tablet 1 g PO TID acetaminophen [Acetaminophen Extra Strength] 500 mg Tablet 500 mg PO Q6H PRN (Reason: Pain/Migraine) PreserVision AREDS 2,148 mcg-113 mg-45 mg-17.4mg Tablet 1 tab PO DAILY furosemide 20 mg Tablet 20 mg PO 4XW 30 Days Qty: 18 0RF Protocol: Hold for SBP< HOLD for SBP < : 90 cephalexin 500 mg capsule 500 mg PO DAILY 90 Days Qty: 90 3RF methenamine hippurate 1 gram tablet 1 g PO DAILY 90 Days Qty: 90 3RF Print Language: [place]
--- OUTSIDE RECORDS SUMMARY | 2025-04-24 19:59 | XMS_ITS | Data Portability ---
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 Not available 04/02/2025 13:57:10 Plan of Treatment Reminders Order Date Submit Date Provider Last Modified By Organization Details Last Modified Time Details Appointments MEDICARE ANNUAL WELLNESS 2024 02:15P Paddy GILBERT Not available Not available Not available MEDICARE ANNUAL WELLNESS 2026 01:30P M DR GILBERT Not available Not available Not available Lab hemoglobi n, gastroint estinal, stool 2024 025 [facility], [address] [place] [place] [address], [id number], 04/24/2025 14:30:44 CBC w/ auto diff 2024 025 [facility], [address] [place] [address], [id number], 04/24/2025 14:30:44 CMP, serum or plasma 2024 025 [facility], [address] [place] [address], [address], 04/24/2025 14:30:44 hemoglobi n A1c, QN, blood 2024 025 [facility], [address] [place] [place] [address], [address], 02/26/2025 15:48:49 iron + TIBC + ferritin, serum 2024 025 [facility], [address] [place] [address], [address], 02/26/2025 15:48:49 CBC w/ auto diff 2024 025 [facility], [address] [place] [place] [address], [address], 03/12/2025 13:54:34 CMP, serum or plasma 2024 025 [facility], [address] [place] [place] [address], [address], 03/12/2025 13:54:34 iron + TIBC + ferritin, serum 2024 025 [facility], [address] [place] [address], [address], 12/18/2024 15:13:38 CBC w/ auto diff 2024 [facility], [address] [place] [place] [address], [address], 12/18/2024 15:13:38 uric acid, serum or plasma 2024 [facility], [address] [place] [place] [address], [address], 12/18/2024 15:13:38 SAMMY + rf (antinucl ear antibodie s + rheumatoi d factor), quantitat marsha, serum 2024 025 [facility], [address] [place] [address], [id number], 12/20/2024 15:05:33 ESR (erythroc yte sedimenta tion rate), blood 2024 025 [facility], [address] [place] [address], [id number], 12/18/2024 15:13:38 C reactive protein, QN, serum or plasma 2024 025 [facility], [address] [place] [address], [address], 12/18/2024 15:13:38 CK (creatine kinase), total, serum 2024 025 [facility], [address] [place] [address], [address], 12/18/2024 15:13:38 CBC 2024 025 [facility], [address] [place] [address], [address], 10/09/2024 11:41:17 iron + TIBC + ferritin, serum 2024 025 [facility], [address] [place] [address], [place], [address], 10/09/2024 11:41:17 Referral None recorded. Procedures None recorded. Surgeries None recorded. Imaging None recorded. Medication Orders None recorded. Patient TargetsNo targets recorded. Patient Instructions Encounter Date Encounter Id Patient Instructions Last Modified By Organization Details Last Modified Time 10/06/2024 [id number] managing nausea from cancer treatment: care instructions [email or web address] Not available 10/06/2024 15:51:37 anemia: care instructions [facility] Not available 10/06/2024 15:51:37 04/24/2025 [id number] advance care planning: care instructions [facility] Not available 04/24/2025 14:25:26 Discussed and explained advance directives such as standard forms to the . Face to face discussion lasted for a duration of ___ minutes. [email or web address] Not available 04/02/2025 13:57:10 Reason for Referral None Reported. Results Created Date Observation Date Name Description Value Unit Range Abnormal Flag Note LastModifiedBy Organization Detail LastModifiedTime 09/06/1909/05/2024 XR, knee, 3 view No observ ation record ed. [address] (Medical Records) [address] [place] [address], [address], 09/06/2024 13:43:52 02/19/2002/18/2025 XR, chest , 2 view No observ ation record ed. [address] (Medical Records) [address] [place], [address], 02/19/2025 08:05:48 02/20/2002/18/2025 imagi ng/di agnos tic resul t No observ ation record ed. [address] (Medical Records) [address] [place] [address], [address], 02/19/2025 08:07:16 Result Notes None recorded. Problems Name Problem SNOMED Code Status Onset Date Resolution Date Notes Provider Name and Address Organization Details Recorded Time Disorder of breast 77088710 Active 2017 Cancer , lymph nodes taken out, [facility] 12:25:35 Migraine 41074210 Active 2017 [facility] 8 12:26:02 Gastroeso phageal reflux disease 797953654 Active 2017 [facility] 8 12:26:10 Restless legs syndrome 49215385 Active 2017 [facility] 8 12:26:28 Hyperlipi demia 57581060 Active 2017 [facility] 8 12:26:54 Dizziness 093424905 Active 2017 Jl Gilbert DO [address] [place] [address], [address], [facility] 8 14:10:15 Diverticu losis of sigmoid colon 434475635 Active 2018 Jl Gilbert DO [address] [place] [address], [address], [facility] 9 15:05:26 Iron deficienc y anemia 22588005 Active 2018 Jl Gilbert DO [address] [place] [address], [address], [facility] 5 23:18:53 Bilateral osteoarth ritis of knees 943219005334 107 Active 2019 Jl Gilbert DO [address] [place] [address], [address], [facility] 0 13:44:31 Postconcu ssion syndrome 02891571 Active 2019 Jl Gilbert DO [address] [place] [address], [address], [facility] 0 14:54:51 Closed fracture of malar AND/OR maxillary bones 89161572 Active 2019 Jl Gilbert, DO [address] [place] [address], [address], [facility] 0 14:56:18 Polymyalg ia rheumatic a 31373091 Active 2021 Jl Gilbert, DO [address] [place] [address], [address], [facility] 2 13:37:53 Myalgia/m yositis - multiple 140638676 Active 2021 BELEN BEGUM [address] [place] [address], [address], [facility] 2 15:33:50 Tremor 06721147 Active 2022 Jl Gilbert DO [address] [place] [address], [address], [facility] 3 15:17:14 Acute urinary tract infection 855669554 Active 2022 Jl Gilbert DO [address] [place] [address], [address], [facility] 3 11:26:31 Stomach cramps 26585569 Active 2022 Jl Gilbert DO [address] [place] [address], [address], [facility] 3 09:36:53 Atrial tachycard ia 358394290 Active 2022 Jl Gilbert DO [address] [place] [address], [address], [facility] 3 09:37:39 Unsteady when walking 57787060 Active 2022 Jl Gilbert DO [address] [place] [address], [address], [facility] 3 09:38:19 Nausea, vomiting and diarrhea 4120043 Active 2022 BELEN BEGUM [address] [place] [address], [address], [facility] 3 15:29:32 Liver function tests outside reference range 104896578 Active 2022 BELEN BEGUM [address] [place] [address], [address], [facility] 3 11:01:05 Abdominal pain 49999320 Active 2022 BELEN BEGUM [address] [place] [address], [address], [facility] 3 11:11:43 Cyst of uterus 953912 Active 2022 Jl Gilbert DO [address] [place] [address], [address], [facility] 3 10:42:25 Urinary incontine vae 563828711 Active 2022 Jl Gilbert DO [address] [place] [address], [address], [facility] 3 10:51:28 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 2022 Jl Gilbert DO [address] [place] [address], [address], [facility] 3 22:13:57 Acute upper gastroint estinal hemorrhag e 22728180 Active 2022 Jl Gilbert DO [address] [place] [address], [address], [facility] 3 22:14:28 Anemia 006113598 Active 2022 Jl Gilbert DO [address] [place] [address], [address], [facility] 3 22:15:19 Bilateral hearing loss 43218732 Active 2022 BELEN BEGUM [address] [place] [address], [address], [facility] 3 15:04:21 Melena 7577781 Active 2022 BELEN BEGUM [address] [place] [address], [address], [facility] 3 10:41:10 Inappropr iate sinus tachycard ia 284259757 Active 2022 Jl Gilbert, [address] [place] [address], [address], [facility] 3 10:16:50 Gastroint estinal hemorrhag e 78303676 Active 2022 Jl Gilbert DO [address] [place] [address], [address], [facility] 3 13:45:49 Recurrent urinary tract infection 361551747 Active 2023 Jl Gilbert DO [address] [place] [address], [address], [facility] 4 16:46:48 Synovial cyst of left knee 910686227613 102 Active 2023 Jl Gilbert DO [address] [place] [address], [address], [facility] 4 12:37:49 Dysuria 48772729 Active 2023 Jl Gilbert DO [address] [place] [address], [address], [facility] 4 11:26:29 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 081863837 Active 2023 Jl Gilbert DO [address] [place] [address], [address], [facility] 4 16:07:14 Allergic reaction to drug 386584869 Active 2023 BELEN BEGUM [address] [place] [address], [address], [facility] 4 14:05:39 Facial eczema 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 2023 Jl Gilbert, DO [address] [place] [address], [address], [facility] 4 16:25:32 Disorder of vitamin B12 841283347 Active 2023 Jl Gilbert, DO [address] [place] [address], [address], [facility] 4 16:32:02 Eczema 35448925 Active 2023 Jl Gilbert, DO [address] [place] [address], [address], [facility] 4 14:35:51 Contusion of right forearm 261154923585 76269 Active 2024 Jl Gilbert, DO [address] [place] [address], [address], [facility] 5 13:49:20 Pain of left knee joint 263094560592 107 Active 2024 Jl Gilbert, DO [address] [place] [address], [address], [facility] 5 13:50:12 Effusion of joint of right knee 044352343833 104 Active 2024 BELEN BEGUM [address] [place] [address], [address], [facility] 5 14:59:43 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 734973797 Active 2024 BELEN BEGUM [address] [place] [address], [address], [facility] 5 15:00:54 Pain of knee region 8542125113 Active 2024 BELEN BEGUM [address] [place] [address], [address], [facility] 5 16:19:23 Pain of right knee joint 063468727636 100 Active 2024 BELEN BEGUM [address] [place], [address], [facility] 5 14:12:53 Acute kidney injury 88267645 Active 2024 BELEN BEGUM [address] [place], [address], [facility] 5 15:40:26 Impaired fasting glycemia 289851714 Active 2024 BELEN BEGUM [address] [place], [address], [facility] 5 15:44:28 Essential hypertens ion 07163855 Active 2024 BELEN BEGUM [address] [place] [address], [address], [facility] 5 14:20:52 Problem Notes None recorded. Procedures Surgical History Date Name Laterality Status Provider Name and Address Organization Details Recorded Time Knee Surgery completed [facility] 07/13/2017 12:27:53 Knee Surgery completed [facility] 07/13/2017 12:28:28 Cholecystectomy completed [facility] 07/13/2017 12:29:02 Imaging Results None recorded. Procedure Notes None recorded. Medical Equipment None Reported. Allergies Allergen ID Allergen Name Allergen Category Reaction Reaction Severity Criticality Documentation Date Start Date Code Code System Note Provider Name and Address Organization Details Recorded Time 2387 Lyrica medicatio n Not available Not available Not available 02/01/2018 82320 1 RxNorm leg pain, sleep ing all the time [facility] 8 13:32:10 550 gabapenti n medicatio n Not available Not available Not available 07/13/2017 22088 RxNorm Light head, numbn ess in hands [facility] 8 12:22:40 551 Product containin g penicilli n (product) medicatio n Not available Not available Not available 07/13/2017 32976 8001 SNOMED [facility] Jess [facility] 8 12:22:54 552 Product containin g 3-hydroxy -3-methyl glutaryl- coenzyme A reductase inhibitor (product) medicatio n Not available Not available Not available 07/13/2017 18137 009 SNOMED Vero shen [facility] 8 12:23:15 553 Levaquin medicatio n Not available Not available Not available 07/13/2017 84337 2 RxNorm Vero shen [facility] 8 12:23:26 8253 Gemtesa medicatio n rash Not available Not available 12/06/20232023 96602 16 [facility] 4 13:44:53 8254 Substance with sulfonami de structure and antibacte rial mechanism of action (substanc e) medicatio n Not available Not available Not available 12/06/2023 59890 8003 SNOMED BELEN BEGUM [address] [place], [address], [facility] 4 14:06:19 9628 levofloxa sarah medicatio n Not available Not available Not available 03/12/20252014 39406 RxNorm Other react ion(s ): Unkno wn Not Available [employer] - prod 5 03:52:46 9629 pregabali n medicatio n Not available Not available Not available 03/12/20252020 04765 2 RxNorm Not Available [employer] External Data [employer] - prod 5 03:52:46 9686 prednison e medicatio n Not available Not available Not available 03/12/2025 8640 RxNorm BELEN BEGUM [address] [place], [address], [facility] 5 14:13:40 Medications Name Sig Start Date Stop Date [...] gram tablet TAKE 1 TABLET BY MOUTH 1 HOUR BEFORE A MEAL 3 TIMES DAILY AND AT BEDTIME. CAN DISSOLVE IN 2-3OZ OF WATER active Not Available Not Available No [...] TABLET BY MOUTH 4 TIMES A WEEK 04/24 completed Not Available Not Available Not Available metoprolol succinate ER 25 mg tablet,ext [...] 2 WEEKS THEN 2 TIMES A WEEK 04/24 completed Not Available Not Available Not Available neomycin 500 mg tablet 02/26 completed [...] Prilosec Take one tablet once a day 04/24 completed Not Available Not Available Not Available Centrum Silver 04/24 completed Not Available Not Available Not Available Vitamin [...] Relief 50 mcg/actuat ion nasal spray,susp ension Tresckow 1 spray every day by intranas al [...] (BMI) Body weight Heart rate Oxygen saturation Systolic And Diastolic Provider Name and Address Organization Details Last Updated DateTime 5 162.56 cm 26.1 kg/m2 41453.4 g 80 /min 94 % 118/74 mm[Hg] Ashley Gerardo [facility] 5 14:48:53 Date Recorded Body height Body mass index (BMI) Body weight Oxygen saturation Heart rate Systolic And Diastolic Provider Name and Address Organization Details Last Updated DateTime 5 162.56 cm 26.4 kg/m2 20765.2 2 g 99 % 78 /min 118/74 mm[Hg] MEY ANTUNEZ [facility] 5 15:31:12 Date Recorded Body height Body mass index (BMI) Body weight Oxygen saturation Heart rate Systolic And Diastolic Provider Name and Address Organization Details Last Updated DateTime 5 162.56 cm 26.1 kg/m2 95482.0 4 g 99 % 78 /min 118/72 mm[Hg] MEY ANTUNEZ [facility] 5 14:01:20 Date Recorded Body height Body mass index (BMI) Body weight Heart rate Oxygen saturation Systolic And Diastolic Provider Name and Address Organization Details Last Updated DateTime 5 162.56 cm 26 kg/m2 37162.1 7 g 78 /min 98 % 116/64 mm[Hg] Nubia Mcarthur [facility] 5 14:10:30 Social History Question Answer Notes LastModified by Organizat ion Details LastModified Time Tobacco Smoking Status Former Smoker Not Available [employer] 02/27/2020 03:36:23 What Was The Date Of Your Most Recent Tobacco Screening? 04/24/2025 [email or web address] Information not available 04/24/2025 How Many Years Have You Smoked Tobacco? 12 [id number] Information not available 02/27/2020 Sex: Unknown Functional [...] Tdap 03/23/20 20 completed Radha Gencarelle hermelinda [facility] 01/06/2021 14:52:31 Pneumococcal conjugate PCV 13 02/25/20 17 completed Michelle shen [facility] 01/06/2021 14:58:01 COVID-19, mRNA, LNP-S, PF, 100 mcg/0.5mL dose or 50 mcg/0.25mL dose 06/26/19 21 completed Michelle shen [facility] 01/06/2021 14:58:48 COVID-19, mRNA, LNP-S, PF, 100 mcg/0.5mL dose or 50 mcg/0.25mL dose 05/28/19 21 completed Jl Gilbert DO [address] [place] [address], [address], [facility] 07/14/2021 16:25:57 COVID-19, mRNA, LNP-S, PF, 100 mcg/0.5mL dose or 50 mcg/0.25mL dose 04/07/20 21 completed Jl Gilbert DO [address] [place] [address], [address], [facility] 07/14/2021 16:26:04 Influenza, split virus, quadrivalent, preservative 04/07/20 21 completed Michelle shen [facility] 09/26/2021 09:34:49 influenza, unspecified formulation 04/03/20 22 completed Jl Gilbert DO [address] [place] [address], [address], [facility] 05/15/2022 14:49:17 Influenza, split virus, quadrivalent, preservative 02/17/20 18 completed Michelle shen [facility] 06/08/2018 14:33:06 pneumococcal polysaccharide PPV23 06/25/19 19 completed Jl Gilbert, [address], [address], [facility] 06/25/2018 10:41:36 zoster live 11/05/19 19 completed Jl Gilbert, [address], [address], [facility] 11/05/2018 10:43:34 zoster live 01/14/20 19 completed Lyric shen [facility] 01/16/2019 08:06:43 Influenza, adjuvanted, trivalent, PF 01/29/20 19 completed Michelle shen [facility] 01/30/2019 12:01:02 Influenza, split virus, quadrivalent, preservative 01/29/20 20 completed Jl Gilbert, [address], [address], [facility] 04/16/2020 14:30:36 Influenza, split virus, quadrivalent, preservative 02/19/20 17 [facility] 07/[facility]/2017 13:26:49 Past Encounters Encounter ID Performer Location Encounter Start Date Encounter Closed Date Diagnosis/Indication Diagnosis SNOMED-CT Code Diagnosis ICD10 Code Diagnosis IMO Codes Diagnosis Note [id number] Jl Gilbert [facility] [address] [facility],[place] [address] 08/16/2017 13:33:31 08/16/2017 14:10:36 Chronic kidney disease stage 2 925067656 N18.2 unclear etiology, has been present since at least 07/2015, though her older records are in a second volume. will recheck labs, reccommend being very well hydrated handwritte n lab for CMP, lipids, cbc will need to pull second volume to determine when sx started Liver func tion tests outside reference range 325035913 R94.5 handwritte n lab for CMP, lipids, cbc, hcv, hbv Generalize d anxiety disorder 98461973 F41.1 on fluoxetine , for many years Restless l egs syndrome 32971294 G25.81 takes lyrica with good effect Upper resp iratory infection 83511913 J06.9 likely viral, recommend fluids, rest, mucinex-dm , sx likely will last 7-10 days, f/u if sx worsen or persist there after. [id number] Jl Gilbert [facility] [address] [facility],[place] [address] 02/01/2018 13:22:59 02/01/2018 14:08:40 Chronic kidney disease stage 2 726394310 N18.2 unclear etiology, has been present since at least 07/2015, though her older records are in a second volume. will recheck labs, reccommend being very well hydrated worsened in july labs, will recheck will dc prilosec due to possible renail impairment Liver func tion tests outside reference range 910444519 R94.5 improved in july labs Generalize d anxiety disorder 62285817 F41.1 on fluoxetine , for many years Restless l egs syndrome 09185147 G25.81 will check levels today lyrica has been d/cd will trial clonazepam Hyperlipidemia 35100507 E78.5 borderline , will recheck Gastroesop hageal reflux disease 512744238 K21.9 [id number] Jl Gilbert [facility] [address] [facility],[place] [address] 02/23/2018 13:33:51 02/23/2018 14:24:06 Depressive disorder 99673291 F32.0 stable migraines also stable Unintentio nal weight loss 803611320 R63.4 with abdominal pain and anemia wgt loss >40lbs Iron defic iency anemia 82417317 D50.9 [id number] Jl Gilbert [facility] [address] [facility], [place] [address] 03/11/2018 11:10:51 03/11/2018 13:27:39 Anemia 327555721 D64.9 will cont with iron until eval as below Epigastric pain 68437410 R10.13 will need to have GI eval and will need EGD etc and colonoscop y given the patients sgt loss of 40 lbs and anemia and evidence of gastric abnormalit y Mass of ri ght adrenal gland 1362332877 8711523 E27.8 per radiologis t needs the ulstrasoun d done to confirm cyst [id number] Jl Gilbert [facility] [address] [facility], [place] [address] 06/08/2018 14:06:13 06/08/2018 15:18:39 Adult health examination 860301940 Z00.00 Abdominal pain 37056334 R10.9 believe this from diverticul osis not itis and that she just has some smoulderin g inflammati on this would also explain her mild anemia with no evid or source of bleed Iron defic iency anemia 43016568 D50.9 need to rechk levels she is taking iron daily this also acccounts for her RLS getting better Diverticul osis of sigmoid colon 488950871 K57.30 sanchez adjust her diet and add slowly metamucil [id number] Jl Gilbert [facility] [address] [facility],[place] [address] 07/13/2018 13:57:33 07/13/2018 14:44:23 Malaise and fatigue 234052036 R53.83 wondering if her blood count has dropped again worried that she is bleeding again recheck cbc iron etc Iron defic iency anemia 37625454 D50.9 need to rechk levels she is taking iron daily but this may not be enough her RLS are back again and is usu indicative of low iron Restless l egs syndrome 16332806 G25.81 check iron [id number] Jl Gilbert [facility] [address] [facility], [employer] [place] [address] 07/22/2018 11:43:48 07/22/2018 15:27:37 Iron deficiency anemia 50421034 D50.9 is from a gi bleed as evidenced from her heme positive occult stool cards X3 will need to be seen again by dr chavarria soon and will need rescope and perhaps egd [place] [id number] Jl Gilbert [facility] Internal Medicine [address] [facility],[place] [address] 12/28/2018 14:42:44 12/28/2018 15:14:54 Cough 66130008 R05 doesn't seem infection, suspect allergies/ PND will r/o atypical pna - get cxr Allergic rhinitis 636139 04 J30.9 allergy treatments Insomnia 578086760 G47.0 0 perhaps xyzal will help with this trial for a couple weeks and see if further treatment is needed [id number] Jl Gilbert [facility] Internal Medicine [address] [facility],[place] [address] 07/10/2019 13:28:38 07/10/2019 14:03:55 Adult health examination 952121265 Z00.01 she has gained some weight back thankfully Iron defic iency anemia 47867400 D50.9 is from a gi bleed as evidenced from her heme positive occult stool cards X3 she feels markedly better after the IRON infusions will need to be seen again by dr deon barnes and will be followed [id number] Jl Gilbert [facility] Internal Medicine [address] [facility],[place] [address] 10/03/2019 15:17:44 10/03/2019 16:27:14 Pain of right calf 6269212854 849430 M79.661 the patient reports swelling, warmth in the right calf and tenderness to palpation Edema of l ower extremity 909395402 R60.0 swelling of bilateral knees will send back to ortho [id number] Jl Gilbert DO [facility] Internal Medicine [address],[place] [address] 01/08/2020 13:28:57 01/08/2020 14:18:35 Hyperlipidemia 79891164 E78.5 will rechk at next lab Iron defic iency anemia 68795931 D50.9 is from a gi bleed as evidenced from her heme positive occult stool cards X3 she feels markedly better after the IRON infusions has finished her iron infusions but will follow the hematologi st in 3 mo will need to be seen again by dr lynda barnes and will be followed Diverticul osis of sigmoid colon 812129258 K57.30 sanchez adjust her diet and add slowly metamucil Prerenal azotemia 686957 001 N25.9 [id number] Jl Gilbert DO [facility] Internal Medicine [address] [facility], ite [facility] [place] [address] 03/27/2020 13:25:39 03/27/2020 13:56:50 Migraine 93175165 G43.909 helped with the sumatripta n, increased after the injury Dizziness 477676921 R42 the patient doing much better today Vertigo 249895087 R42 [place] [id number] Jl Gilbert DO [facility] Internal Medicine [address],[facility] [place] [address] 04/16/2020 14:08:59 04/16/2020 15:14:12 Dizziness 597035961 R42 part of her post concussion synd Iron defic iency anemia 65164703 D50.9 is from a gi bleed as evidenced from her heme positive occult stool cards X3 she feels markedly better after the IRON infusions has finished her iron infusions but will follow the hematologi st in 3 mo will need to be seen again by dr lynda barnes and will be followed Gastroesop hageal reflux disease 126940034 K21.9 stable on current meds 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 [address] 08/26/2020 13:25:05 08/26/2020 14:40:35 Iron deficiency anemia 26542957 D50.9 is from a gi bleed as [...] cbc decreases Diverticul osis of sigmoid colon 244536179 K57.30 has adjust her diet and cont metamucil Dizziness 786191854 R42 finally resolved now post concuss [id number] Jl Gilbert DO [facility] Internal Medicine [address],[place] [address] 01/08/2021 13:20:59 01/08/2021 14:46:00 Mass of right adrenal gland 9425503704 6023479 E27.8 per radiologis t needs the ulstrasoun d done to confirm cyst Depressive disorder 3548 9007 F32.0 stable migraines also stable Closed fra cture of malar AND/OR maxillary bones 61066261 S02.400A slowly healing and doing better ent and dental both feel no surgery is needed Iron defic iency anemia 20389735 D50.9 is from a gi bleed as [...] she usu knows when cbc decreases Hyperlipidemia 13585034 E78.5 will rechk at next lab Gastroesop hageal reflux disease 126101229 K21.9 stable on current meds Bilateral osteoarthritis of knees 6890974254 44228 M17.0 having pain around prosthetic swe will try some meloxicam [id number] Jl Gilbert DO [facility] Internal Medicine [address] [facility],[place] [address] 05/14/2021 08:12:09 05/16/2021 13:11:42 Iron deficiency anemia 29362454 D50.9 she feels a little better after the IRON infusions legs less weak still is easily tired has finished her iron infusions but will follow the hematologi st in 2 weeks will be seen again by dr howell soon and will be followed await lab work states does feel good now and states she bita knows when cbc decreasesg iven the diarrhea we will need to have her see a GI specialist Restless l egs syndrome 05720444 G25.81 check iron Diverticul osis of sigmoid colon 649461818 K57.30 has adjust her diet and cont metamucil Mass of ri ght adrenal gland 8643435147 0346138 E27.8 per radiologis t needs the ultrasound done to confirm cyst Depressive disorder 3548 9007 F32.0 stable migraines also stable Closed fra cture of malar AND/OR maxillary bones 79535983 S02.400A stable and doing better ent and dental both feel no surgery is needed Migraine 71757478 G43.90 9 has been stable but ran out [place]atripta n [id number] Jl Gilbert [facility] Internal Medicine [address] [facility] [address],[place] [employer] [address] 07/14/2021 16:17:28 07/15/2021 11:02:41 Diverticulosis of colon 431393434 K57.30 cont to improve and eating good and bowels are much better she will call andreas if her pain returns in her LLQ or fever or both [id number] Jl Gilbert [facility] Internal Medicine [address] [facility] [address],[place] [address] 09/26/2021 15:51:14 09/26/2021 16:24:35 Hyperlipidemia 09242746 E78.5 will rechk at next lab Gastroesop hageal reflux disease 389149381 K21.9 stable on current meds Iron defic iency anemia 58211549 D50.9 doing much bettereati ng better PRIOR [...] a GI specialist Advance care planning 71 3697059 Z71.89 done [id number] Jl Gilbert [facility] Internal Medicine [address] [facility] [address],[place] [address] 12/19/2021 13:31:27 12/19/2021 14:33:24 Migraine 82553267 G43.909 has been stable but ran out of sumatripta n Advance care planning 71 6235460 Z71.89 Has on file with [facility] Polymyalgi a rheumatica 23782315 M35.3 we will begin to slowly taper the prednisone will have been on pred 40mg for one month on dec 5will decrease to 35 mg after the weekend and see how she doeswill get an esr after a couple [id number] Jl Gilbert DO [facility] Internal Medicine [address],[place] [address] 01/16/2022 16:17:09 01/19/2022 09:59:46 Polymyalgia rheumatica 99450855 M35.3 she feels great and is doing wonderfule sr was 80 and is now down to 4appetite is too good Bilateral osteoarthritis of knees 5983077531 08219 M17.0 is feeling great Diverticul osis of sigmoid colon 227814277 K57.30 has adjust her diet and cont metamucil Gastroesop hageal reflux disease 793633575 K21.9 stable on current meds Iron defic iency anemia 40785888 D50.9 doing much bettereati ng better PRIOR [...] to have her see a GI specialist [id number] Jl Gilbert DO [facility] Internal Medicine [address],[place] [address] 03/16/2022 15:06:22 03/16/2022 15:38:34 Polymyalgia rheumatica 95699512 M35.3 she feels great and is doing wonderfule sr was 80 and is now down to 4 and last week 7 so is down to her last dose and now dc we will rechk a esr in few weeksappet ite is too good she will call if her sx return and we will do quick pred pulse dosewill see in spring Jl Gilbert DO [facility] Internal Medicine [address],[place] [facility] [address] 05/15/2022 14:37:24 05/15/2022 15:28:13 Iron deficiency anemia 67545507 D50.9 now her symptoms are mimicing her prior severe iron def anemia we will check lab now and have her see dr lynda johns Mass of ri ght adrenal gland 3355535913 1015176 E27.8 per radiologis t needs the ultrasound done to confirm cyst Polymyalgi a rheumatica 72394558 M35.3 she feels great and is doing wonderfule sr was 80 and is now down to 4 and last week 7 so is down to her last dose and now dc we will rechk a esr in few weeksappet ite is too good she will call if her sx return and we will do quick pred pulse dosewill see in spring Depressive disorder 6275 900 F32.0 stable migraines also stable Closed fra cture of malar AND/OR maxillary bones 44677934 S02.400A stable and doing better ent and dental both feel no surgery is needed Advance care planning 71 0707365 Z71.89 Has on file with [facility] [id number] Jl Gilbert DO [facility] Internal Medicine [address] [facility] [address],[place] [facility] [address] 07/01/2022 14:20:51 07/01/2022 15:27:01 Polymyalgia rheumatica 28574416 M35.3 she feels great and is doing [...] see in spring Advance care planning 71 0547709 Z71.89 Has on file with [facility] Iron defic iency anemia 35596268 D50.9 now wondering if iron def has returned and is causing the tremor in handswe will rechk in lab now Tremor 90605314 R25.1 unsure etiol could be from iron def or ?pred taper ? no med that are new etcwill chk lab now if the labe is negative then we should try a beta clifford [id number] Jl Gilbret [facility] Internal Medicine [address] [facility],[place] [address] 08/11/2022 10:24:40 08/11/2022 12:19:51 Adult health examination 109528953 Z00.00 has noticed increased fatigue as of late Acute urin mahesh tract infection 489801635 N39.0 Atrial fibrillation 4943 6004 I48.91 will initiate metoprolol and put her on asa until definitive dx we obtained tentative dx by exam and by Esmer [id number] Jl Miles Yoseph [facility] Internal Medicine [address],[facility] [place] [address] 08/28/2022 09:00:48 08/28/2022 11:10:24 Iron deficiency anemia 74051201 D50.9 cbc normal iron level is also goodwillst op iron supp she has been having GI upset Stomach cramps 73150286 R10.9 prob secondary to sulfa med now feels better Atrial tachycardia 41853 6006 I47.1 we will have her cont the metoprolol low dose and see her in october Unsteady when walking 22 172561 R26.89 will get a eval done [id number] Jl Miles Yoseph [facility] Internal Medicine [address],[facility] [place] [address] 09/14/2022 09:12:26 09/14/2022 11:23:12 Abdominal pain 19703502 R10.11 start on dicyclomin e 20 mg TID and nausea she will continue zofran Nausea, vo miting and diarrhea 6646462 R11.2 elevated LFTs, protein and signs of anemia; concern for biliary symptom problem [id number] Jl CarinJannette [facility] Internal Medicine [address],[facility] [place] [address] 10/02/2022 15:40:40 10/02/2022 16:24:29 Pre-surgery evaluation 390556656 Z01.818 The patient was seen in the office today for pre-op evaluation . All medical conditions on patient's problem list were addressed and are currently stable, no interventi on needed at this time. Based on history and physical performed, the patient is cleared for surgery. [id number] Jl Gilbert [facility] Internal Medicine [address] [facility],[place] [address] 11/20/2022 08:00:16 11/20/2022 14:17:23 Polymyalgia rheumatica 86259294 M35.3 she feels great and is doing wonderfuln o longer on prednisone she will call if her sx return and we will do quick pred pulse dosewill see in spring Gastroesop hageal reflux disease 940620581 K21.9 stable on current meds Cyst of uterus 549738 N 88.8 did well with surgery and no major issues was 12cm in size Diverticul osis of sigmoid colon 595706027 K57.30 has adjust her diet and cont metamucil Urinary incontinence 165 535247 R32 going to a incont clinic at [facility] Bilateral osteoarthritis of knees 9010724152 88379 M17.0 we will provid cor t inj when she is ready [id number] Jl Gilbert [facility] Internal Medicine [address] [facility],[place] [address] 12/25/2022 08:04:46 12/25/2022 15:24:45 Acute upper gastrointestinal hemorrhage 90975153 K92.1 will set up with recheck BW Gastroesop hageal reflux disease 303252984 K21.9 stable Hyperlipidemia 46353310 E78.2 stable Iron defic iency anemia 77967614 D50.9 stable Bilateral hearing loss 14866627 H90.5 referral sent [id number] Jl Gilbert [facility] Internal Medicine [address],[place] [address] 02/22/2023 09:47:49 02/22/2023 10:59:43 Bilateral osteoarthritis of knees 0756993196 44455 M17.0 she has a new stimulator doing well with it so far Iron defic iency anemia 29623692 D50.9 cbc normal if iron level is also goodwillst op iron supp she has been having GI upset Acute uppe r gastrointestinal hemorrhage 57977590 K92.1 no further bleedingno perlita Inappropri ate sinus tachycardia 655131566 I47.11 quiet nno issues [id number] Jl Gilbert [facility] Internal Medicine [address] [facility], it[place] [facility] [place] [address] 04/21/2023 09:18:25 04/21/2023 15:17:48 Bilateral osteoarthritis of knees 4493759056 10179 M17.0 she has a new stimulator doing well with it so far Anemia 233433286 D64.9 will cont with iron until eval as below Inappropri ate sinus tachycardia 462334271 I47.11 quiet no issues Gastrointe stinal hemorrhage 45020462 K92.2 has had major work up after recent bleeding that required mult transfusio ns (at least 4)await results of video capsule [id number] Jl Gilbret [facility] Internal Medicine [address] [facility] [facility], [place] [address] 07/26/2023 11:53:47 07/26/2023 14:25:43 Synovial cyst of left knee 0089675052 91378 M71.22 ruptured now resolving discussed care and ongoing tx Iron defic iency anemia 71376299 D50.9 doing fantastic with her iron infusions Acute urin mahesh tract infection 219453091 N39.0 now is asymptomat ictold her to use the lubricant every day [id number] Jl Gilbert [facility] Internal Medicine [address] [facility] [facility], [place] [address] 12/06/2023 13:29:44 12/06/2023 14:45:24 Depression screening 736158804 Z13.31 SCREENING NEGATIVE Allergic r eaction to drug 780970222 T78.49XA will start on prednisone for the rash (allergic reaction)w ill set up wtih hydroxyzin e for the itch specifical ly [id number] Jl Gilbert [facility] Internal Medicine [address] [facility] [address], [place] 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 and doing well with iron infusions Anemia 818579933 D64.9 will cont with iron until eval as below Iron defic iency anemia 24524472 D50.9 doing fantastic with her iron infusions [id number] Jl Gilbert [facility] Internal Medicine [address] [facility], [place] [address] 03/27/2024 13:49:10 03/27/2024 14:44:29 Adult health examination 134169809 Z00.01 has noticed increased fatigue as of late Screening for cardiovascular system disease 689597285 Z13.6 Screening mammography 24 050115 Z12.31 not required 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 doing well Hyperlipidemia 38979107 E78.2 will rechk at next lab Iron defic iency anemia 13683016 D50.9 doing fantastic with her iron infusions has been stable at 12.2 the last few months skipping iron infusion this month per dr howell Eczema 89543148 L30.9 [id number] Jl Gilbert [facility] Internal Medicine [address], [place] [address] 09/05/2024 13:29:17 09/05/2024 13:56:12 Hyperlipidemia 94488114 E78.2 will rechk at next lab Depression screening 171 781755 Z13.31 neg Iron defic iency anemia 52400243 D50.9 doing fantastic with her iron infusions has been stable at 13.5 the last few months skipping iron infusion this month per dr howell Contusion of right forearm 5930140748 7234690 S50.11XA 470750 noted healing but still sore will use tylenol prn Pain of le ft knee joint 7499785129 84258 M25.562 821218 [id number] Jl Gilbert [facility] Internal Medicine [address],[place] [employer] [place] [address] 10/06/2024 15:19:24 10/06/2024 16:01:25 Pain of left knee joint 5771317265 60919 M25.562 344909 cont with tylenoll for now melox helped but we need lab first Anemia 585199753 D64.9 will cont with iron until eval as below Disorder o f vitamin B12 033934622 E53.8 doing well Stomach cramps 39401917 R10.9 resolved Nausea, vo miting and diarrhea 5812861 R11.2 resolved [id number] Jl Gilbert [facility] Internal [address],[place] [address] 12/18/2024 14:08:51 12/18/2024 16:52:24 Effusion of joint of right knee 5177053181 20370 M25.128 4703954 will set up additional lab workon top of her regular lab work Iron defic iency anemia due to blood loss 611302825 D50.0 599123 will set up with lab work [id number] Jl Gilbert [facility] Internal [address] [address] 02/26/2025 14:37:39 02/26/2025 17:21:07 Depression screening 931911110 Z13.31 SCREENING NEGATIVE Acute kidney injury 1466 9001 N17.0 63450 set up with repeat CMP Iron defic iency anemia due to blood loss 119834894 D50.0 366104 will set up with lab work Impaired f asting glycemia 646989951 R73.01 342602 will recheck her glucose levels as well [id number] Jl Gilbert [facility] Internal Medicine [address] [place] [address] 03/12/2025 13:52:28 03/13/2025 08:57:31 Depression screening 111381465 Z13.31 SCREENING NEGATIVE Essential hypertension 00548657 I10 81054 is excellent [id number] Jl Gilbert [facility] Internal Medicine [address] [place] [address] 04/24/2025 13:53:33 04/24/2025 14:31:44 Screening for cardiovascular system disease 997359179 Z13.6 utd just had major cardiol workup Screening for malignant neoplasm of colon 892010221 Z12.11 Screening for osteoporosis 202326233 Z13.820 not required Screening mammography 24 357785 Z12.31 not required Depression screening 171 977062 Z13.31 neg Essential hypertension 05700054 I10 09108 Hyperlipidemia 62996603 E78.2 will rechk at next lab Well adult 602933311 Z00 .00 46942844 overall is doing ok relates that she does have some fatigue Health Concerns Section Related Observation LastModified by Organization Detai ls LastModified Time None Recorded Concern Status LastModified by Organization Details LastModified Time None Recorded Advance Directives Directive None Recorded Payers Insurance Date Sequence Insurance Name Policy Number Policy Barnhart Covered Member ID Barnhart Member ID Guarantor Name 04/24/2025 1 [place] [employer] Renita Ritchie [id number] Renita Ritchie 04/24/2025 2 [place] [id number] Renita Ritchie [id number] Renita Ritchie Notes Date Note Type Note Provider Name and Address Organization Details Recorded Time 10/07/19 25 text/htm l Musculoskeletal PainReported by [...] Jl Gilbert, DO [address] [facility], [place], [address], [facility] 10/06/2024 15:52:29 12/19/19 25 text/htm [...] who does her injections BELEN BEGUM [address] [place], [address], [facility] Internal Medicine 12/18/2024 15:07:41 02/27/20 25 text/htm l ROS as noted in the [facility] hospital f/u the patient may have had [...] recheck her CBC levels BELEN BEGUM [address] [place], [address], [facility] Internal Medicine 02/26/2025 16:24:20 03/12/20 25 text/htm l ROS as noted in the HPI 2 week f/u the patient is here this week for her 2 week f/uthe patient BP at home has been goodresolved, probable medication reaction the patient reports that she has her cardio f/uthe patient does not need any medication the patient is otherwise doing well BELEN BEGUM [address] [place], [address], [facility] Internal Medicine 03/12/2025 14:24:08 04/24/20 25 text/htm l Care Management - HypertensionReported by PatientHPIFor self care, patient reportsnot under emotional stress. For severity, patient reportssymptoms are improvinganddoes not interfere with daily activities. For associated symptoms, patient reportsno dizziness,no lightheadedness,no chest pain,no shortness of breath,no palpitations,no edema,no calf muscle cramps,no blurred vision,no confusion,no headaches, andno fatigue. Care Management - HyperlipidemiaReported by PatientHPIFor control, patient reportsusually well controlled,improving, andat goal. For complications, patient reportsno coronary artery disease,no heart attack,no cardiovascular disease,no pancreatitis, andno stroke. Medicare Annual Wellness VisitReported by PatientROS as noted in the HPI here since hospitalization for chf but echo showed nl lvef but does have lv hypertrophy Jl Gilbert, DO [address] [facility], [place], [address], [facility] 04/24/2025 14:26:41 OBGyn Episode No OBEpisode recorded.
--- OUTSIDE RECORDS SUMMARY | 2025-04-24 20:00 | XMS_ITS | Continuity of Care Document ---
Author Organization [facility], [facility] Address [address] [place] [address] [place] [address] Assessment No assessment recorded. Plan of Treatment Reminders Order Date Submit Date Provider Last Modified By Organization Details Last Modified Time Details Appointments MEDICARE ANNUAL WELLNESS 2024 02:15P M DR GILBERT Not available Not available Not available MEDICARE ANNUAL WELLNESS 2026 01:30P M DR GILBERT Not available Not available Not available Lab hemoglobi n A1c, QN, blood 2024 [facility], [address] [place] [address], [id number], 02/26/2025 15:48:49 iron + TIBC + ferritin, serum 2024 025 [facility], [address] [place] [address], [address], 02/26/2025 15:48:49 CBC w/ auto diff 2024 [facility], [address] [place] [address], [address], 03/12/2025 13:54:34 CMP, serum or plasma 2024 025 [facility], [address] [place] [address], [address], 03/12/2025 13:54:34 Referral None recorded. Procedures None recorded. Surgeries None recorded. Imaging None recorded. Medication Orders None recorded. Patient TargetsNo targets recorded. Patient InstructionsNo instructions recorded. Reason for Referral None Reported. Results Created Date Observation Date Name Description Value Unit Range Abnormal Flag Note LastModifiedBy Organization Detail LastModifiedTime 02/19/2002/18/2025 XR, chest , 2 view No observ ation record ed. [address] (Medical Records) [address] [place], [address], 02/19/2025 08:05:48 02/20/2002/18/2025 imagi ng/di agnos tic resul t No observ ation record ed. [address] (Medical Records) [address] [place], [address], 02/19/2025 08:07:16 Result Notes None recorded. Problems Name Problem SNOMED Code Status Onset Date Resolution Date Notes Provider Name and Address Organization Details Recorded Time Disorder of breast 50116326 Active 2017 Cancer , lymph nodes taken out, Chemo/ Radiat ion Vero shen [facility] 8 12:25:35 Migraine 90225276 Active 2017 Vero shen [facility] 8 12:26:02 Gastroeso phageal reflux disease 822098112 Active 2017 Vero shen [facility] 8 12:26:10 Restless legs syndrome 28404370 Active 2017 Vero shen [facility] 8 12:26:28 Hyperlipi demia 46727510 Active 2017 Vero shen [facility] 8 12:26:54 Dizziness 546314080 Active 2017 Jl Gilbert DO [address] [place] [address], [address], [facility] 8 14:10:15 Diverticu losis of sigmoid colon 456135920 Active 2018 Jl Gilbert DO [address] [place] [address], [address], [facility] 9 15:05:26 Iron deficienc y anemia 71942899 Active 2018 Jl Gilbert DO [address] [place] [address], [address], [facility] 5 23:18:53 Bilateral osteoarth ritis of knees 880527115329 107 Active 2019 Jl Gilbert DO [address] [place] [address], [address], [facility] 0 13:44:31 Postconcu ssion syndrome 80191012 Active 2019 Jl Gilbert DO [address] [place] [address], [address], [facility] 0 14:54:51 Closed fracture of malar AND/OR maxillary bones 71508192 Active 2019 Jl Gilbert DO [address] [place] [address], [address], [facility] 0 14:56:18 Polymyalg ia rheumatic a 51596661 Active 2021 Jl Gilbert DO [address] [place] [address], [address], [facility] 2 13:37:53 Myalgia/m yositis - multiple 063317119 Active 2021 BELEN BEGUM [address] [place] [address], [address], [facility] 2 15:33:50 Tremor 55734865 Active 2022 Jl Gilbert DO [address] [place] [address], [address], [facility] 3 15:17:14 Acute urinary tract infection 423927191 Active 2022 Jl Gilebrt DO [address] [place] [address], [address], [facility] 3 11:26:31 Stomach cramps 65737929 Active 2022 Jl Gilbert DO [address] [place] [address], [address], [facility] 3 09:36:53 Atrial tachycard ia 290703141 Active 2022 Jl Gilbert DO [address] [place] [address], [address], [facility] 3 09:37:39 Unsteady when walking 04462910 Active 2022 Jl Gilbert [address], [address], [facility] 3 09:38:19 Nausea, vomiting and diarrhea 1612310 Active 2022 BELEN BEGUM [address] [place] [address], [address], [facility] 3 15:29:32 Liver function tests outside reference range 758175994 Active 2022 BELEN BEGUM [address] [place] [address], [address], [facility] 3 11:01:05 Abdominal pain 23095396 Active 2022 BELEN BEGUM [address] [place] [address], [address], [facility] 3 11:11:43 Cyst of uterus 377170 Active 2022 Jl Gilbert [address], [address], [facility] 3 10:42:25 Urinary incontine pae 060157839 Active 2022 Jl Gilbert DO [address] [place] [address], [address], 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 3 22:13:57 Acute upper gastroint estinal hemorrhag e 08338577 Active 2022 Jl Gilbert, DO [address] [place] [address], [address], [facility] 3 22:14:28 Anemia 159745186 Active 2022 Jl Gilbert, DO [address] [place] [address], [address], [facility] 3 22:15:19 Bilateral hearing loss 44099495 Active 2022 BELEN BEGUM [address] [place] [address], [address], [facility] 3 15:04:21 Melena 4693309 Active 2022 BELEN BEGUM [address] [place] [address], [address], [facility] 3 10:41:10 Inappropr iate sinus tachycard ia 239815119 Active 2022 Jl Gilbert DO [address] [place] [address], [address], [facility] 3 10:16:50 Gastroint estinal hemorrhag e 29772322 Active 2022 Jl Gilbert DO [address] [place] [address], [address], [facility] 3 13:45:49 Recurrent urinary tract infection 503562583 Active 2023 Jl Gilbert DO [address] [place] [address], [address], [facility] 4 16:46:48 Synovial cyst of left knee 137024413682 102 Active 2023 Jl Gilbert DO [address] [place] [address], [address], [facility] 4 12:37:49 Dysuria 78786176 Active 2023 Jl Gilbert DO [address] [place] [address], [address], 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 4 16:07:14 Allergic reaction to drug 440725513 Active 2023 BELEN BEGUM [address] [place] [address], [address], 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 4 16:25:32 Disorder of vitamin B12 466869079 Active 2023 Jl Gilbert DO [address] [place] [address], [address], [facility] 4 16:32:02 Eczema 53477497 Active 2023 lJ Gilbert DO [address] [place] [address], [address], [facility] 4 14:35:51 Contusion of right forearm 739253354242 37995 Active 2024 Jl Gilbert DO [address] [place] [address], [address], [facility] 5 13:49:20 Pain of left knee joint 705828626126 107 Active 2024 Jl Gilbert DO [address] [place] [address], [address], [facility] 5 13:50:12 Effusion of joint of right knee 251740175871 104 Active 2024 BELEN BEGUM [address] [place], [address], 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 5 15:00:54 Pain of knee region 5340707229 Active 2024 BELEN BEGUM [address] [place], [address], [facility] 5 16:19:23 Pain of right knee joint 093647635692 100 Active 2024 BELEN BEGUM [address] [place] [address], [address], [facility] 5 14:12:53 Acute kidney injury 72076323 Active 2024 BELEN BEGUM [address] [place] [address], [address], [facility] 15:40:26 Impaired fasting glycemia 699048164 Active 2024 BELEN BEGUM [address] [place] [address], [address], [facility] 15:44:28 Essential hypertens ion 89493618 Active 2024 BELEN BEGUM [address] [place], [address], [facility] 5 14:20:52 Problem Notes None recorded. Procedures Surgical History Date Name Laterality Status Provider Name and Address Organization Details Recorded Time Knee Surgery completed Vero Mercado [facility] 07/13/2017 12:27:53 Knee Surgery completed Vero Mercado [facility] 07/13/2017 12:28:28 Cholecystectomy completed Vero Mercado [facility] 07/13/2017 12:29:02 Imaging Results None recorded. Procedure Notes None recorded. Medical Equipment None Reported. Allergies Allergen ID Allergen Name Allergen Category Reaction Reaction Severity Criticality Documentation Date Start Date Code Code System Note Provider Name and Address Organization Details Recorded Time 2386 Lyrica medicatio n Not available Not available Not available 02/01/2018 70390 1 RxNorm leg pain, [facility] 8 13:32:10 550 gabapenti n medicatio n Not available Not available Not available 07/13/2017 13320 RxNorm Light head, numbn ess in hands [facility] 8 12:22:40 551 Product containin g penicilli n (product) medicatio n Not available Not available Not available 07/13/2017 35437 8001 SNOMED [facility] 8 12:22:54 552 Product containin g 3-hydroxy -3-methyl glutaryl- coenzyme A reductase inhibitor (product) medicatio n Not available Not available Not available 07/13/2017 63165 [facility] 8 12:23:15 553 Levaquin medicatio n Not available Not available Not available 07/13/2017 25504 2 Rx[facility] 8 12:23:26 8253 Gemtesa medicatio n rash Not available Not available 12/06/20232023 62671 16 [facility] 4 13:44:53 8254 Substance with sulfonami de structure and antibacte rial mechanism of action (substanc e) medicatio n Not available Not available Not available 12/06/2023 74375 8003 SNOMED BELEN BEGUM [address] [place], [address], [facility] 4 14:06:19 9628 levofloxa sarah medicatio n Not available Not available Not available 03/12/20252014 07099 RxNorm Other react ion(s ): Unkno wn Not Available mauricio - External Data Service - prod 03:52:46 9629 pregabali n medicatio n Not available Not available Not available 03/12/20252020 24956 2 RxNorm Not Available mauricio - External Data Service - prod 03:52:46 9686 prednison e medicatio n Not available Not available Not available 03/12/2025 8640 RxNorm BELEN BEGUM [address] [place] [address], [address], [facility] 14:13:40 Medications Name Sig Start Date Stop [...] Relief 50 mcg/actuat ion nasal spray,susp ension [place] 1 spray every day by intranas al [...] Updated DateTime 5 162.56 cm 26.4 kg/m2 64514.2 2 g 99 % 78 /min 118/74 mm[Hg] [facility] 5 15:31:12 Social History Question Answer Notes LastModified by Organizat ion Details LastModified Time Tobacco Smoking Status Former Smoker Not Available [employer] 02/27/2020 03:36:23 What Was The Date Of Your Most Recent Tobacco Screening? 04/24/2025 [email or web address] Information not available 04/24/2025 How Many Years Have You Smoked Tobacco? 12 [id number] Information not available 02/27/2020 Sex: Unknown Functional [...] Time Tdap 03/23/20 20 [facility] 14:52:31 Pneumococcal conjugate PCV 13 02/25/20 17 [facility] 01/06/2021 14:58:01 COVID-19, mRNA, LNP-S, PF, 100 mcg/0.5mL dose or 50 mcg/0.25mL dose 06/26/19 21 anat shen [facility] 01/06/2021 14:58:48 COVID-19, mRNA, LNP-S, PF, 100 mcg/0.5mL dose or 50 mcg/0.25mL dose 05/28/19 21 completed Jl Gilbert DO [address] [place] [address], [address], [facility] 07/14/2021 16:25:57 COVID-19, mRNA, LNP-S, PF, 100 mcg/0.5mL dose or 50 mcg/0.25mL dose 04/07/20 21 completed Jl Gilbert DO [address] [place] [address], [address], [facility] 07/14/2021 16:26:04 Influenza, split virus, quadrivalent, preservative 04/07/20 21 [facility] 09/26/2021 09:34:49 influenza, unspecified formulation 04/03/20 22 completed Jl Gilbert DO [address] [place] [address], [address], [facility] 05/15/2022 14:49:17 Influenza, split virus, quadrivalent, preservative 02/17/20 [facility] 06/08/2018 14:33:06 pneumococcal polysaccharide PPV23 06/25/19 19 completed Jl Gilbert, DO [address] [place] [address], [address], [facility] 06/25/2018 10:41:36 zoster live 11/05/19 19 completed Jl Gilbert, DO [address] [place], [address], [facility] 11/05/2018 10:43:34 zoster live 01/14/20 19 completed Lyric shen [facility] 01/16/2019 08:06:43 Influenza, adjuvanted, trivalent, PF 01/29/20 19 [facility] 01/30/2019 12:01:02 Influenza, split virus, quadrivalent, preservative 01/29/20 20 completed Jl Gilbert, DO [address] [place] [address], [address], [facility] 04/16/2020 14:30:36 Influenza, split virus, quadrivalent, preservative 02/19/20 17 [facility]2017 13:26:49 Past Encounters Encounter ID Performer Location Encounter Start Date Encounter Closed Date Diagnosis/Indication Diagnosis SNOMED-CT Code Diagnosis ICD10 Code Diagnosis IMO Codes Diagnosis Note [id number] Jl Gilbert [facility] [address] [facility] [facility],[place] [address] 02/26/2025 14:37:39 02/26/2025 17:21:07 Depression screening 262899979 Z13.31 SCREENING NEGATIVE Acute kidney injury 1466 9001 N17.0 77672 set up with repeat CMP Iron defic iency anemia due to blood loss 483951282 D50.0 361107 will set up with lab work Impaired f asting glycemia 717445848 R73.01 245165 will recheck her glucose levels as well Health Concerns Section Related Observation LastModified by Organization Detai ls LastModified Time None Recorded Concern Status LastModified by Organization Details LastModified Time None Recorded Payers Encounter Date Sequence Insurance Name Policy Number Policy Barnhart Covered Member ID Barnhart Member ID Guarantor Name 02/26/2025 1 [place] [employer] Renita Ritchie [id number] Renita Ritchie 02/26/2025 2 [place]) [id number] Renita Ritchie [id number] Renita Ritchie Notes Date Note Type Note Provider Name a nd Address Organization Details Recorded Time 02/26/2025 text/html ROS as noted in the [facility] hospital f/u the patient may have had [...] weeks recheck her CBC levels BELEN BEGUM [address] [place] [address], [place], [address], [facility] 02/26/2025 16:24:20 OBGyn Episode No OBEpisode recorded.
--- OUTSIDE RECORDS SUMMARY | 2025-04-24 20:00 | XMS_ITS | Clinical Summary ---
Author Organization [facility] Address [address] [place] [address] Phone Care Team Providers Care Teleservices Representative Name Role Phone Jl Hameed DO Primary Care Provider [phone] Allergies Active Allergy Reactions Criticality Noted Date Comments Gabapentin 11/14/2020 Levofloxacin 06/26/2014 Other reaction(s): Unknown Penicillins Rash 03/04/2007 Pregabalin 11/14/2020 Rsdglbc-Pgt-Fzg Reductase Inhibitors 11/14/2020 Medications celecoxib (CELEBREX) 200 MG capsule celecoxib 200 mg capsule Active ferrous sulfate 325 mg (65 mg grindstone iron) tablet Iron (ferrous sulfate) 325 mg [...] 03/14/2025 1:00 PM EST [facility] [address] [place] [address] Dana Govea RN SN OASIS DISCHARGE VISIT 03/08/2025 1:00 PM EST [facility] [address] [place] [address] Dana Govea RN SN HOME VISIT 03/06/2025 Episode Documentatio n Update [facility] [address] [place] [address] Sheri Blackman 03/05/2025 2:00 PM EST [facility] [address] [place] [address] Dana Govea RN SN HOME VISIT 03/01/2025 2:00 PM EST [facility] Visit [facility] [address] [place] [address] Dana Govea, CAREY SN HOME VISIT 03/01/2025 12:00 PM EST [facility] Visit [facility] [address] [place] [address] Kailyn Camejo, OT OT EVALUATION 02/27/2025 12:45 PM EST [facility] Visit [facility] [address] [place] [address] Yenni Toussaint LPN [employer] [facility] HOME VISIT 02/26/2025 Home Care Visit [facility] [address] [place] [address] Kailyn Camejo, OT TELEPHONE ENCOUNTER 02/26/2025 Home Care Visit [facility] [address] [place] [address] Kailyn Camejo, OT TELEPHONE ENCOUNTER 02/22/2025 1:30 PM EDT Home [facility] Visit [facility] [address] [place] [phone] Noam Montes De Oca RN SN OASIS START OF CARE (SOC) 02/22/2025 Plan of Care Documentation [facility] [address] [place] [address] 02/20/2025 Orders Only [facility] [address] [place] [address] Homehealth, Interface ProviderMD from Last 3 Months [...] [place]IC[place] PART A & [place] [id number] [employer] MEDEX SUPPLEMENT MEDICARE PART A & B [employer] MEDEX SUPPLEMENT MEDICARE PART A & B [employer] MEDEX SUPPLEMENT MEDICARE PART A & B [employer] MEDEX SUPPLEMENT MEDICARE PART A & B [employer] MEDEX SUPPLEMENT MEDICARE PART A & B [employer] MEDEX SUPPLEMENT MEDICARE PART A & B [employer] MEDEX SUPPLEMENT MEDICARE PART A & B [employer] MEDEX SUPPLEMENT MEDICARE PART A & B [employer] MEDEX SUPPLEMENT Care Teams Teleservices Representative Relationship Specialty Start Date End Date Jl Hameed DO [email or web address] PCP - General 04/29/17 Additional Source Comments The information contained in this document represents components of the legal health record. It is not the complete legal health record.[facility]
--- OUTSIDE RECORDS SUMMARY | 2025-04-24 20:00 | XMS_ITS | Continuity of Care Document ---
Author Organization [facility], [facility] Address [address] [address] Assessment No assessment recorded. Plan of Treatment [...] 2 view No observ ation record ed. [address] (Medical Records) [address] [place], [address], 02/19/2025 08:05:48 02/20/2002/18/2025 imagi ng/di agnos tic resul t No observ ation record ed. [address] (Medical Records) [address] [place], [address], 02/19/2025 08:07:16 Result Notes None recorded. Problems Name Problem SNOMED Code Status Onset Date Resolution Date Notes Provider Name and Address Organization Details Recorded Time Disorder of breast 01940090 Active 2017 Cancer , lymph nodes taken out, Chemo/ Radiat ion BARBARA Blanco Man[facility] 8 12:25:35 Migraine 26820541 [facility] 12:26[facility]02 Gastroeso phageal reflux disease 246054196 Active 2017 [facility] 8 12:26:10 Restless legs syndrome 67707995 Active 2017 [facility] 8 12:26:28 Hyperlipi demia 81803829 Active 2017 [facility] 8 12:26:54 Dizziness 749060595 Active 2017 Jl Gilbert DO [address] [place] [address], [address], [facility] 8 14:10:15 Diverticu losis of sigmoid colon 349431084 Active 2018 Jl Gilbert DO [address] [place] [address], [address], [facility] 9 15:05:26 Iron deficienc y anemia 90737663 Active 2018 Jl Gilbert DO [address] [place] [address], [address], [facility] 5 23:18:53 Bilateral osteoarth ritis of knees 449584900198 107 Active 2019 Jl Gilbert DO [address] [place] [address], [address], [facility] 0 13:44:31 Postconcu ssion syndrome 10558174 Active 2019 Jl Gilbert DO [address] [place] [address], [address], [facility] 0 14:54:51 Closed fracture of malar AND/OR maxillary bones 15983975 Active 2019 Jl Gilbert DO [address] [place] [address], [address], [facility] 0 14:56:18 Polymyalg ia rheumatic a 35316195 Active 2021 Jl Gilbert, DO [address] [place] [address], [address], [facility] 2 13:37:53 Myalgia/m yositis - multiple 379949544 Active 2021 BELEN BEGUM [address] [place] [address], [address], [facility] 2 15:33:50 Tremor 97563063 Active 2022 Jl Gilbert, DO [address] [place] [address], [address], [facility] 3 15:17:14 Acute urinary tract infection 364094269 Active 2022 Jl Gilbert DO [address] [place] [address], [address], [facility] 3 11:26:31 Stomach cramps 62814197 Active 2022 Jl Gilbert, DO [address] [place] [address], , [facility] 3 09:36:53 Atrial tachycard ia 275636814 Active 2022 Jl Gilbert, DO [address] [place] [address], , [facility] 3 09:37:39 Unsteady when walking 94466654 Active 2022 Jl Gilbert, DO [address] [place] [address], , [facility] 3 09:38:19 Nausea, vomiting and diarrhea 2449803 Active 2022 BELEN BEGUM [address] [place] [address], [address], [facility] 3 15:29:32 Liver function tests outside reference range 375488407 Active 2022 BELEN BEGUM [address] [place] [address], [address], [facility] 3 11:01:05 Abdominal pain 36364060 Active 2022 BELEN BEGUM [address] [place] [address], [address], [facility] 3 11:11:43 Cyst of uterus 540585 Active 2022 Jl Gilbert, [address], [address], [facility] 3 10:42:25 Urinary incontine moe 294500084 Active 2022 Jl Gilbert, [address], [address], [facility] 3 10:51:28 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 2022 Jl Gilbert [address], [address], [facility] 3 22:13:57 Acute upper gastroint estinal hemorrhag e 23837070 Active 2022 Jl Gilbert [address], [address], [facility] 3 22:14:28 Anemia 898027381 Active 2022 Jl Gilbert, [address], [address], [facility] 3 22:15:19 Bilateral hearing loss 96642645 Active 2022 BELEN BEGUM [address] [place] [address], [address], [facility] 3 15:04:21 Melena 7375972 Active 2022 BELEN BEGUM [address] [place] [address], [address], [facility] 3 10:41:10 Inappropr iate sinus tachycard ia 530636527 Active 2022 Jl Gilbert, DO [address] [place] [address], [address], [facility] 3 10:16:50 Gastroint estinal hemorrhag e 97351342 Active 2022 Jl Gilbert, DO [address] [place] [address], [address], [facility] 3 13:45:49 Recurrent urinary tract infection 551429846 Active 2023 Jl Gilbert DO [address] [place] [address], [address], [facility] 4 16:46:48 Synovial cyst of left knee 510705290989 102 Active 2023 Jl Gilbert DO [address] [place] [address], [address], [facility] 4 12:37:49 Dysuria 79055664 Active 2023 Jl Gilbert DO [address] [place] [address], [address], [facility] 4 11:26:29 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 222255873 Active 2023 Jl Gilbert DO [address] [place] [address], [address], [facility] 4 16:07:14 Allergic reaction to drug 972390504 Active 2023 BELEN BEGUM [address] [place] [address], [address], [facility] 4 14:05:39 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 2023 Jl Gilbert DO [address] [place] [address], [address], [facility] 4 16:25:32 Disorder of vitamin B12 310975821 Active 2023 Jl Gilbert, DO [address] [place] [address], [address], [facility] 4 16:32:02 Eczema 91708140 Active 2023 Jl Gilbert, DO [address] [place] [address], [address], [facility] 4 14:35:51 Contusion of right forearm 832346809413 02534 Active 2024 Jl Gilbert, DO [address] [place] [address], [address], [facility] 5 13:49:20 Pain of left knee joint 095835798877 107 Active 2024 Jl Gilbert, [address] [place] [address], [address], [facility] 5 13:50:12 Effusion of joint of right knee 960985595278 104 Active 2024 BELEN BEGUM [address] [place] [address], [address], [facility] 5 14:59:43 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 344807980 Active 2024 BELEN BEGUM [address] [place] [address], [address], [facility] 5 15:00:54 Pain of knee region 2052212994 Active 2024 BELEN BEGUM [address] [place] [address], [address], [facility] 5 16:19:23 Pain of right knee joint 237355061173 100 Active 2024 BELEN BEGUM [address] [place] [address], [address], [facility] 5 14:12:53 Acute kidney injury 49553996 Active 2024 GINNY AYALABELEN ABDUL [address] [place], [address], [facility] 5 15:40:26 Impaired fasting glycemia 487116764 Active 2024 GINNY AYALABELEN ABDUL [address] [place], [address], [facility] 5 15:44:28 Essential hypertens ion 08253434 Active 2024 GINNY AYALABELEN ABDUL [address] [place], [address], [facility] Internal [facility] 5 14:20:52 Problem Notes None recorded. Procedures Surgical History Date Name Laterality Status Provider Name and Address Organization Details Recorded Time Knee Surgery completed [facility] 07/13/2017 12:27:53 Knee Surgery completed [facility] 07/13/2017 12:28:28 Cholecystectomy completed [facility] 07/13/2017 12:29:02 Imaging Results None recorded. Procedure Notes None recorded. Medical Equipment None Reported. Allergies Allergen ID Allergen Name Allergen Category Reaction Reaction Severity Criticality Documentation Date Start Date Code Code System Note Provider Name and Address Organization Details Recorded Time 2386 Lyrica medicatio n Not available Not available Not available 02/01/2018 59633 1 RxNorm leg pain, sleep ing all the time [facility] 8 13:32:10 550 gabapenti n medicatio n Not available Not available Not available 07/13/2017 87398 RxNorm Light head, numbn ess in hands [facility] 8 12:22:40 551 Product containin g penicilli n (product) medicatio n Not available Not available Not available 07/13/2017 30495 8001 SNOMED [facility] 8 12:22:54 552 Product containin g 3-hydroxy -3-methyl glutaryl- coenzyme A reductase inhibitor (product) medicatio n Not available Not available Not available 07/13/2017 96280 009 SNOMED Vero shen, [facility] Internal [facility] 8 12:23:15 553 Levaquin medicatio n Not available Not available Not available 07/13/2017 70148 2 RxNorm Vero shen [facility] 8 12:23:26 8253 Gemtesa medicatio n rash Not available Not available 12/06/20232023 84037 16 RxNorm Ashley shen, [facility] 4 13:44:53 8254 Substance with sulfonami de structure and antibacte rial mechanism of action (substanc e) medicatio n Not available Not available Not available 12/06/2023 39888 8003 SNOMED BELEN BEGUM [address] [place], [address], [facility] 4 14:06:19 9628 levofloxa sarah medicatio n Not available Not available Not available 03/12/20252014 40814 RxNorm Other react ion(s ): Unkno wn Not Available [employer] - External Data Service - prod 5 03:52:46 9629 pregabali n medicatio n Not available Not available Not available 03/12/20252020 64978 2 RxNorm Not Available [employer] External Data Service - prod 03:52:46 9686 prednison e medicatio n Not available Not available Not available 03/12/2025 8640 RxNorm BELEN BEGUM [address] [place], [address], [facility] Internal [facility] 5 14:13:40 Medications Name Sig Start Date [...] Relief 50 mcg/actuat ion nasal spray,susp ension [place] 1 spray every day by intranas al [...] Updated DateTime 5 162.56 cm 26.1 kg/m2 22412.0 4 g 99 % 78 /min 118/72 mm[Hg] MEY TULIO [facility] 5 14:01:20 Social History Question Answer Notes LastModified by Organizat ion Details LastModified Time Tobacco Smoking Status Former Smoker Not Available [employer] 02/27/2020 03:36:23 What Was The Date Of Your Most Recent Tobacco Screening? 04/24/2025 [email or web address] Information not available 04/24/2025 How Many Years Have You Smoked Tobacco? 12 [id number] Information not available 02/27/2020 Sex: Unknown Functional [...] Time Tdap 03/23/20 20 completed Radha shen [facility] 01/06/2021 14:52:31 Pneumococcal conjugate PCV 13 02/25/20 17 completed Michelle shen [facility] 01/06/2021 14:58:01 COVID-19, mRNA, LNP-S, PF, 100 mcg/0.5mL dose or 50 mcg/0.25mL dose 06/26/19 21 completed Michelle shen [facility] 01/06/2021 14:58:48 COVID-19, mRNA, LNP-S, PF, 100 mcg/0.5mL dose or 50 mcg/0.25mL dose 05/28/19 21 completed Jl Gilbert, DO [address] [place], [address], [facility] Internal [facility] 07/14/2021 16:25:57 COVID-19, mRNA, LNP-S, PF, 100 mcg/0.5mL dose or 50 mcg/0.25mL dose 04/07/20 21 completed Jl Gilbert DO [address] [place] [address], [address], [facility] Internal [facility] 07/14/2021 16:26:04 Influenza, split virus, quadrivalent, preservative 04/07/20 [facility] 09:34:49 influenza, unspecified formulation 04/03/20 22 completed Jl Gilbert DO [address] [place] [address], [address], [facility] 05/15/2022 14:49:17 Influenza, split virus, quadrivalent, preservative 02/17/20 18 [facility]2018 14:33:06 pneumococcal polysaccharide PPV23 06/25/19 19 completed Jl Gilbert DO [address] [place] [address], [address], [facility] 06/25/2018 10:41:36 zoster live 11/05/19 19 completed Jl Gilbert DO [address] [place] [address], [address], [facility] 11/05/2018 10:43:34 zoster live 01/14/20 19 [facility] 01/16/2019 08:06:43 Influenza, adjuvanted, trivalent, PF 01/29/20 19 [facility] 01/30/2019 12:01:02 Influenza, split virus, quadrivalent, preservative 01/29/20 20 completed Jl Gilbert DO [address] [place] [address], [address], [facility] 04/16/2020 14:30:36 Influenza, split virus, quadrivalent, preservative 02/19/20 17 completed Vero Mercado [facility] 07/13/2017 13:26:49 Past Encounters Encounter ID Performer Location Encounter Start Date Encounter Closed Date Diagnosis/Indication Diagnosis SNOMED-CT Code Diagnosis ICD10 Code Diagnosis IMO Codes Diagnosis Note [id number] Jl Gilbert [facility] [address],[place] [address] 02/26/2025 14:37:39 02/26/2025 17:21:07 Depression screening 145893583 Z13.31 SCREENING NEGATIVE Acute kidney injury 1466 9001 N17.0 50522 set up with repeat CMP Iron defic iency anemia due to blood loss 051797046 D50.0 865158 will set up with lab work Impaired f asting glycemia 274095494 R73.01 672948 will recheck her glucose levels as well [id number] Jl Miles Catienelson [facility] Internal [facility] [address],[place] [address] 03/12/2025 13:52:28 03/13/2025 08:57:31 Depression screening 277766948 Z13.31 SCREENING NEGATIVE Essential hypertension 20104224 I10 00109 is excellent Health Concerns Section Related Observation LastModified by Organization Detai ls LastModified Time None Recorded Concern Status LastModified by Organization Details LastModified Time None Recorded Payers Encounter Date Sequence Insurance Name Policy Number Policy Barnhart Covered Member ID Barnhart Member ID Guarantor Name 03/12/2025 1 [place] [employer] Renita Ritchie [id number] Renita Ritchie 03/12/2025 2 [place] [id number] Renita Ritchie [id number] Renita Ritchie Notes Date Note Type Note Provider Name a nd Address Organization Details Recorded Time 03/12/2025 text/html ROS as noted in the HPI 2 week f/u the patient is here this week for her 2 week f/uthe patient BP at home has been goodresolved, probable medication reaction the patient reports that she has her cardio f/uthe patient does not need any medication the patient is otherwise doing well BELEN BEGUM [address], [place], [address], [facility] 03/12/2025 14:24:08 OBGyn Episode No OBEpisode recorded.
--- OUTSIDE RECORDS SUMMARY | 2025-04-24 20:00 | XMS_ITS | Encounter Summary ---
Author Organization [facility] Address [address] [place] [address] Phone Care Team Providers Care Decorative Engraver Apprentice Name Role Phone Jl Hameed DO Primary Care Provider [phone] Encounter Details Date Type Department Care Team (Late st Contact Info) Description 10/02/2019 Transcribe Orders [facility] [address] [address] Dawood Allred MD [address] [place] [address] Iron deficiency anemia secondary to blood loss [...] EDT) WBC 4.20 4.00 - 11.00 K/uL [facility] Comment:Note Reference Range updates to all CBC and Differential results. RBC 4.28 3.72 - 5.30 M/uL [facility] HGB 10.3(L) 11.4 - 15.9 g/dL [facility] Comment:Note updated Referen ce Ranges for all CBC and Differential results. HCT 33.9(L) 34.2 - 46.8 % [facility] PLT 335 140 - 430 K/uL [facility] MCV 79.2 78.0 - 97.0 fL [facility] MCH 24.1(L) 25.0 - 33.0 pg [facility] MCHC 30.4(L) 32.0 - 36.0 g/dL [facility] RDW 17.7(H) 11.0 - 16.0 % [facility] MPV 10.8 8.4 - 12.8 fl [facility] NRBC 0.00 0 /100 WBCs [facility] ABSOLUTE NRBC 0.00 0 K/uL [facility] DIFF METHOD Auto [facility] NEUTS 58.1 43.0 - 75.0 % [facility] LYMPHS 26.0 18.2 - 47.4 % [facility] MONOS 10.0 4.00 - 11.00 % [facility] EOS 4.5 0.0 - 8.0 % [facility] BASOS 1.2 0.0 - 2.0 % [facility] Granulocytes, immature (%) 0.2 0.0 - 0.9 % [facility] ABSOLUTE NEUTS 2.44 1.80 - 7.70 K/uL [facility] ABSOLUTE LYMPHS 1.09 1.00 - 3.10 K/uL [facility] ABSOLUTE MONOS 0.42 0.20 - 0.80 K/uL [facility] ABSOLUTE EOS 0.19 0.00 - 0.80 K/uL [facility] ABSOLUTE BASOS 0.05 0.00 - 0.09 K/uL [facility] Granulocytes, immature 0.01 0.00 - 0.05 K/uL [facility] Blood 10/02/2019 11:0 9 AM EDT 10/02/2019 11:23 AM EDT us Dawood Allred MD LAB BLOOD BKR ORDERABLES Fi nal Result [facility] [address] [place] [address] * Ferritin (10/02/2019 11:09 AM EDT) Pathologist [facility] FERRITIN 36 13 - 150 ug/L [facility] Blood 10/02/2019 11:0 9 AM EDT 10/02/2019 11:23 AM EDT us Dawood Allred MD LAB BLOOD BKR ORDERABLES Fi nal Result Performing Organization Address City[facility]/ZIP Co de Phone Number [address] [address] * (ABNORMAL) Iron and iron binding capacity (10/02/2019 11:09 AM EDT) IRON 32 30 - 160 ug/dL [facility] IRON BINDING CAPACITY 343 228 - 428 ug/dL [facility] TRANSFERRIN SATURAT. 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 It is not the complete legal health record.[facility]
--- OUTSIDE RECORDS SUMMARY | 2025-04-24 20:00 | XMS_ITS | Continuity of Care Document ---
Author Organization [facility], [facility] Address [address] [facility] [place] [address] [place] [address] Assessment Encounter Date Assessment Date Assessment LastModified by Organization Details LastModified Time 04/24/2025 04/24/2025 Patient presente d to office [...] hemoglobi n, gastroint estinal, stool 2024 025 [facility], [address] [place] [address], [place], [address], 04/24/2025 14:30:44 CBC w/ auto diff 2024 025 [facility], [address] [place] [address], [place], [address], 04/24/2025 14:30:44 CMP, serum or plasma 2024 025 [facility], [address] [place] [address], [place], [address], 04/24/2025 14:30:44 Referral None recorded. Procedures None recorded. Surgeries None recorded. Imaging None recorded. Medication Orders None recorded. Patient TargetsNo targets recorded. Patient Instructions Encounter Date Encounter Id Patient Instructions Last Modified By Organization Details Last Modified Time 04/24/2025 [id number] advance care planning: care instructions Not available 04/24/2025 14:25:26 Discussed and explained advance directives such as standard forms to the . Face to face discussion lasted for a duration of ___ minutes. Not available 04/02/2025 13:57:10 Reason for Referral None Reported. Problems Name Problem SNOMED Code Status Onset Date Resolution Date Notes Provider Name and Address Organization Details Recorded Time Disorder of breast 34159073 Active 2017 Cancer , lymph nodes taken out, Chemo/ Radiat ion Vero shen [facility] Internal [facility] 8 12:25:35 Migraine 49231838 Active 2017 Vero shen [facility] 8 12:26:02 Gastroeso phageal reflux disease 646786909 Active 2017 Vero shen [facility] 8 12:26:10 Restless legs syndrome 05998400 Active 2017 Vero shen [facility] 8 12:26:28 Hyperlipi demia 37658675 Active 2017 Vero shen [facility] 8 12:26:54 Dizziness 005262352 Active 2017 Jl Gilbert DO [address] [place] [address], [address], [facility] 8 14:10:15 Diverticu losis of sigmoid colon 980244368 Active 2018 Jl Gilbert DO [address] [place] [address], [address], [facility] 9 15:05:26 Iron deficienc y anemia 63257415 Active 2018 Jl Gilbert DO [address] [place] [address], [address], [facility] 5 23:18:53 Bilateral osteoarth ritis of knees 793001873652 107 Active 2019 Jl Gilbert DO [address] [place] [address], [address], [facility] 0 13:44:31 Postconcu ssion syndrome 65837697 Active 2019 Jl Gilbert DO [address] [place] [address], [address], [facility] 0 14:54:51 Closed fracture of malar AND/OR maxillary bones 87864775 Active 2019 Jl Gilbert DO [address] [place] [address], [address], [facility] 0 14:56:18 Polymyalg ia rheumatic a 65841157 Active 2021 Jl Gilbert DO [address] [place] [address], [address], [facility] 2 13:37:53 Myalgia/m yositis - multiple 314810776 Active 2021 BELEN BEGUM [address] [place] [address], [address], [facility] 2 15:33:50 Tremor 44797651 Active 2022 Jl Gilbert DO [address] [place] [address], [address], [facility] 3 15:17:14 Acute urinary tract infection 774283303 Active 2022 Jl Gilbert DO [address] [place] [address], [address], [facility] 3 11:26:31 Stomach cramps 64679782 Active 2022 Jl Gilbert, DO [address] [place] [address], [address], [facility] 3 09:36:53 Atrial tachycard ia 040444459 Active 2022 Jl Gilbert DO [address] [place] [address], [address], [facility] 3 09:37:39 Unsteady when walking 41705399 Active 2022 Jl Gilbert, DO [address] [place] [address], [address], [facility] 3 09:38:19 Nausea, vomiting and diarrhea 5037541 Active 2022 BELEN BEGUM [address] [place] [address], [address], [facility] 3 15:29:32 Liver function tests outside reference range 449222598 Active 2022 BELEN BEGUM [address] [place] [address], [address], [facility] 3 11:01:05 Abdominal pain 48266191 Active 2022 BELEN BEGUM [address] [place] [address], [address], [facility] 3 11:11:43 Cyst of uterus 384271 Active 2022 Jl Gilbert DO [address] [place] [address], [address], [facility] 3 10:42:25 Urinary incontine wve 366156816 Active 2022 Jl Gilbert DO [address] [place] [address], [address], [facility] 3 10:51:28 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 2022 Jl Gilbert DO [address] [place] [address], [address], [facility] 3 22:13:57 Acute upper gastroint estinal hemorrhag e 24474829 Active 2022 Jl Gilbert DO [address] [place] [address], [address], [facility] 3 22:14:28 Anemia 103325653 Active 2022 Jl Gilbert DO [address] [place] [address], [address], [facility] 3 22:15:19 Bilateral hearing loss 62942154 Active 2022 BELEN BEGUM [address] [place] [address], , [facility] 3 15:04:21 Melena 1209031 Active 2022 BELEN BEGUM [address] [place] [address], [address], [facility] 3 10:41:10 Inappropr iate sinus tachycard ia 325417852 Active 2022 Jl Gilbert DO [address] [place] [address], [address], [facility] 3 10:16:50 Gastroint estinal hemorrhag e 19084472 Active 2022 Jl Gilbert DO [address] [place] [address], [address], [facility] 3 13:45:49 Recurrent urinary tract infection 441547927 Active 2023 Jl Gilbert DO [address] [place] [address], [address], [facility] 4 16:46:48 Synovial cyst of left knee 388368516069 102 Active 2023 Jl Gilbert DO [address] [place] [address], [address], [facility] 4 12:37:49 Dysuria 99735381 Active 2023 Jl Gilbert, DO [address] [place] [address], [address], [facility] 4 11:26:29 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 112170895 Active 2023 Jl Gilbert, DO [address] [place] [address], [address], [facility] 4 16:07:14 Allergic reaction to drug 045604335 Active 2023 BELEN BEGUM [address] [place] [address], [address], [facility] 4 14:05:39 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 Jl Gilbert, DO [address] [place] [address], [address], [facility] 4 16:25:32 Disorder of vitamin B12 431841115 Active 2023 Jl Gilbert, DO [address] [place] [address], [address], [facility] 4 16:32:02 Eczema 52422372 Active 2023 Jl Gilbert, DO [address] [place] [address], [address], [facility] 4 14:35:51 Contusion of right forearm 055213752703 98661 Active 2024 Jl Gilbert, DO [address] [place] [address], [address], [facility] 5 13:49:20 Pain of left knee joint 329685227464 107 Active 2024 Jl Gilbert, DO [address] [place] [address], [address], [facility] 5 13:50:12 Effusion of joint of right knee 627288649537 104 Active 2024 BELEN BEGUM [address] [place] [address], [address], [facility] 5 14:59:43 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 512644708 Active 2024 BELEN BEGUM [address] [place] [address], [address], [facility] 5 15:00:54 Pain of knee region 3478728673 Active 2024 BELEN BEGUM [address] [place] [address], [address], [facility] 5 16:19:23 Pain of right knee joint 954182071567 100 Active 2024 BELEN BEGUM [address] [place] [address], [address], [facility] 5 14:12:53 Acute kidney injury 09936487 Active 2024 BELEN BEGUM [address] [place] [address], [address], [facility] 5 15:40:26 Impaired fasting glycemia 611582816 Active 2024 BELEN BEGUM [address] [place] [address], [address], [facility] 5 15:44:28 Essential hypertens ion 27068817 Active 2024 BELEN BEGUM [address] [place] [address], [address], [facility] 5 14:20:52 Problem Notes None recorded. Procedures Surgical History Date Name Laterality Status Provider Name and Address Organization Details Recorded Time Knee Surgery completed [facility] 07/13/2017 12:27:53 Knee Surgery completed [facility] 07/13/2017 12:28:28 Cholecystectomy completed [facility] 07/13/2017 12:29:02 Imaging Results None recorded. Procedure Notes None recorded. Medical Equipment None Reported. Allergies Allergen ID Allergen Name Allergen Category Reaction Reaction Severity Criticality Documentation Date Start Date Code Code System Note Provider Name and Address Organization Details Recorded Time 2387 Lyrica medicatio n Not available Not available Not available 02/01/2018 48508 1 RxNorm leg pain, sleep ing all the time Vero shen [facility] Internal [facility] 8 13:32:10 550 gabapenti n medicatio n Not available Not available Not available 07/13/2017 35732 RxNorm Light head, numbn ess in hands Vero shen [facility] 8 12:22:40 551 Product containin g penicilli n (product) medicatio n Not available Not available Not available 07/13/2017 10054 8001 [facility] Vero shen [facility] 8 12:22:54 552 Product containin g 3-hydroxy -3-methyl glutaryl- coenzyme A reductase inhibitor (product) medicatio n Not available Not available Not available 07/13/2017 53516 009 [facility] Vero shen [facility] 8 12:23:15 553 Levaquin medicatio n Not available Not available Not available 07/13/2017 53946 2 RxNorm Vero shen [facility] 8 12:23:26 8253 Gemtesa medicatio n rash Not available Not available 12/06/20232023 86950 16 [facility] 4 13:44:53 8254 Substance with sulfonami de structure and antibacte rial mechanism of action (substanc e) medicatio n Not available Not available Not available 12/06/2023 67374 8003 SNOMED BELEN BEGUM [address] [place], [address], [facility] 4 14:06:19 9628 levofloxa sarah medicatio n Not available Not available Not available 03/12/20252014 42018 RxNorm Other react ion(s ): Unkno wn Not Available mauricio - External Data Service - prod 03:52:46 9629 pregabali n medicatio n Not available Not available Not available 03/12/20252020 53539 2 RxNorm Not Available mauricio - External Data Service - prod 03:52:46 9686 prednison e medicatio n Not available Not available Not available 03/12/2025 8640 RxNorm BELEN BEGUM [address] [place], [address], [facility] 5 14:13:40 Medications Name Sig Start Date [...] Relief 50 mcg/actuat ion nasal spray,susp ension [place] 1 spray every day by intranas al [...] Updated DateTime 5 162.56 cm 26 kg/m2 97207.1 7 g 78 /min 98 % 116/64 mm[Hg] [facility] 5 14:10:30 Social History Question Answer Notes LastModified by Organizat ion Details LastModified Time Tobacco Smoking Status Former Smoker Not Available [employer] 02/27/2020 03:36:23 What Was The Date Of Your Most Recent Tobacco Screening? 04/24/2025 [email or web address] Information not available 04/24/2025 How Many Years Have You Smoked Tobacco? 12 [id number] Information not available 02/27/2020 Sex: Unknown Functional [...] Recorded Time Tdap 03[facility]23[facility]20 [facility] 14:52:31 Pneumococcal conjugate PCV 13 02/25/20 17 [facility]21 14:58:01 COVID-19, mRNA, LNP-S, PF, 100 mcg/0.5mL dose or 50 mcg/0.25mL dose 06/26/19 21 completed Michelle shen [facility] 01/06/2021 14:58:48 COVID-19, mRNA, LNP-S, PF, 100 mcg/0.5mL dose or 50 mcg/0.25mL dose 05/28/19 21 completed Jl Gilbert DO [address] [place] [address], [address], [facility] 07/14/2021 16:25:57 COVID-19, mRNA, LNP-S, PF, 100 mcg/0.5mL dose or 50 mcg/0.25mL dose 04/07/20 21 completed Jl Gilbert DO [address] [place] [address], [address], [facility] 07/14/2021 16:26:04 Influenza, split virus, quadrivalent, preservative 04/07/20 21 completed Michelle shen [facility] 09/26/2021 09:34:49 influenza, unspecified formulation 04/03/20 22 completed Jl Gilbert DO [address] [place] [address], [address], [facility] 05/15/2022 14:49:17 Influenza, split virus, quadrivalent, preservative 02/17/20 18 [facility] 06/08/2018 14:33:06 pneumococcal polysaccharide PPV23 06/25/19 19 completed Jl Gilbert DO [address] [place] [address], [address], [facility] 06/25/2018 10:41:36 zoster live 11/05/19 19 completed Jl Gilbert DO [address] [place] [address], [address], [facility] 11/05/2018 10:43:34 zoster live 01/14/20 19 completed Lyric shen [facility] 01/16/2019 08:06:43 Influenza, adjuvanted, trivalent, PF 01/29/20 19 [facility] 01/30/2019 12:01:02 Influenza, split virus, quadrivalent, preservative 01/29/20 20 completed Jl Gilbert DO [address] [place] [address], [address], [facility] 04/16/2020 14:30:36 Influenza, split virus, quadrivalent, preservative 02/19/20 17 completed Vero Mercado [facility] 07/13/2017 13:26:49 Past Encounters Encounter ID Performer Location Encounter Start Date Encounter Closed Date Diagnosis/Indication Diagnosis SNOMED-CT Code Diagnosis ICD10 Code Diagnosis IMO Codes Diagnosis Note [id number] Jl Gilbert [facility] [address] [facility] [address] 04/24/2025 13:53:33 04/24/2025 14:31:44 Screening for cardiovascular system disease 492931734 Z13.6 utd just had major cardiol workup Screening for malignant neoplasm of colon 161271240 Z12.11 Screening for osteoporosis 028387196 Z13.820 not required Screening mammography 24 911500 Z12.31 not required Depression screening 171 745100 Z13.31 neg Essential hypertension 23791601 I10 43015 Hyperlipidemia 88100473 E78.2 will rechk at next lab [facility] 001074857 Z00 .00 60165799 overall is doing ok relates that she does have some fatigue Health Concerns Section Related Observation LastModified by Organization Detai ls LastModified Time None Recorded Concern Status LastModified by Organization Details LastModified Time None Recorded Payers Encounter Date Sequence Insurance Name Policy Number Policy Barnhart Covered Member ID Barnhart Member ID Guarantor Name 04/24/2025 1 [place] [employer] Renita Ritchie [id number] Renita Ritchie 04/24/2025 2 [place] [id number] Renita Parkerkendra [id number] Renita Diaskimberly Notes Date Note Type Note Provider Name and Address Organization Details Recorded Time 04/24/20 25 text/htm l Care Management - [...] have lv hypertrophy Jl Gilbert, DO [address] [facility], [place], [address], [facility] 04/24/2025 14:26:41 OBGyn Episode No OBEpisode recorded.
--- OUTSIDE RECORDS SUMMARY | 2025-04-24 20:00 | XMS_ITS | Encounter Summary ---
Author Organization [facility] Address [address] [place] [address] Phone Care Team Providers Care Mother Repairer Name Role Phone Jl Hameed DO Primary Care Provider [phone] Encounter Details Date Type Department Care Team (Late st Contact Info) Description 04/14/2019 Transcribe Orders [facility] Phleb [address] [place] [address] [address] Dawood Allred MD [address] [place] [address] Anemia, unspecified type (Primary Dx) Social History [...] EST) WBC 6.20 3.40 - 11.20 K/uL [facility] RBC 4.11 3.80 - 4.80 M/uL [facility] HGB 9.4(L) 12.0 - 15.0 g/dL [facility] HCT 31.9(L) 36.0 - 46.0 % [facility] PLT 343 130 - 400 K/uL [facility] MCV 77.6(L) 79.0 - 98.0 fL [facility] MCH 22.9(L) 27.0 - 34.8 pg [facility] MCHC 29.5(L) 31.5 - 36.0 g/dL [facility] RDW 15.9(H) 10.8 - 14.6 % [facility] MPV 10.2 9.4 - 12.4 fl [facility] NRBC 0.00 0.00 /100 WBCs [facility] ABSOLUTE NRBC 0.00 0.00 K/uL [facility] DIFF METHOD Auto [facility] NEUTS 70.2 45.30 - 77.70 % [facility] LYMPHS 16.9 12.30 - 39.70 % [facility] MONOS 10.8 4.10 - 12.80 % [facility] EOS 1.1 0 - 7.2 % [facility] BASOS 0.8 0 - 2.80 % [facility] Granulocytes, immature (%) 0.2 0.0 - 0.9 % [facility] ABSOLUTE NEUTS 4.35 1.40 - 7.70 K/uL [facility] ABSOLUTE LYMPHS 1.05 0.60 - 3.20 K/uL [facility] ABSOLUTE MONOS 0.67(H) 0.11 - 0.59 K/uL [facility] ABSOLUTE EOS 0.07 0.01 - 0.50 K/uL [facility] ABSOLUTE BASOS 0.05 0.00 - 0.08 K/uL [facility] Granulocytes, immature 0.01 0.00 - 0.05 K/uL [facility] Blood 04/14/2019 12:1 2 PM EST 04/14/2019 12:17 PM EST us Dawood Allred MD LAB BLOOD BKR ORDERABLES Fi nal Result [address] [address] * (ABNORMAL) Iron and iron binding capacity (04/14/2019 12:12 PM EST) IRON 15(L) 30 - 160 ug/dL [facility] IRON BINDING CAPACITY 302 228 - 428 ug/dL [facility] TRANSFERRIN SATURAT. 5(L) 15 - 50 % [facility] Blood 04/14/2019 12:1 2 PM EST 04/14/2019 12:17 PM EST us Dawood Allred MD LAB BLOOD BKR ORDERABLES Fi nal Result Performing Organization Address City/[facility]/ZIP Co de Phone Number [address] [address] * Ferritin (04/14/2019 12:12 PM EST) FERRITIN 34 13 - 150 ug/L [facility] Blood 04/14/2019 12:1 2 PM EST 04/14/2019 12:17 PM EST us Dawood Allred MD LAB BLOOD BKR ORDERABLES Fi nal Result Performing Organization Address [facility] Co de Phone Number [address] [address] documented in this encounter Visit Diagnoses Diagnosis Anemia, unspecified type- Primary documented in this encounter Care Teams Mother Repairer Relationship Specialty Start Date End Date Jl Hameed DO [email or web address] PCP - General 04/29/17 documented as of this encounter Additional Source Comments The information contained in this document represents components of the legal health record. It is not the complete legal health record.[facility]
[2025-04-24 20:17] LABS: MANUAL DIFF FLAG NO
[2025-04-24 20:21] LABS: Hematocrit 30.7 % (37.0-47.0); Hemoglobin 9.6 g/dl (12.0-16.0); Imm Gran Abs Auto 0.06 X10*3/uL (0.00-0.03); Imm Gran Pct Auto 1.2 % (0.0-0.4); Lymphocytes Absolute Auto 0.7 X10*3/uL (1.2-4.9); Mean Corpuscular HGB Conc 31.3 g/dl (31.0-35.0); Mean Corpuscular Hemoglobin 27.5 pg (27.0-33.0); Mean Corpuscular Volume 88.0 fL (80.0-98.0); NRBC Abs Auto 0.000 X10*3/uL (0.0-0.012); NRBC Pct Auto 0.0 /100WBC (0.0-0.2); Platelet Count 268 X10*3/uL (160-400); Red Blood Count 3.49 X10*6/uL (4.20-5.50); White Blood Count 4.9 X10*3/uL (4.8-10.8)
[2025-04-24 20:32] LABS: Alanine Aminotransferase 10 U/L (0-31); Albumin Level 3.5 g/dL (3.5-5.0); Alkaline Phosphatase 73 U/L (39-117); Anion Gap 15 (12-20); Aspartate Amino Transferase 26 U/L (5-31); Blood Urea Nitrogen 29 mg/dL (9-16); Calcium 9.4 mg/dL (8.4-10.2); Carbon Dioxide 19 mmol/L (22-29); Chloride 111 mmol/L (96-108); Creatinine Clr Calc Pharmacy 24.8; Estimated Glomerular Filt Rate 36; Lipase 16 U/L (8-78); Potassium 4.8 mmol/L (3.3-5.1); Sodium 140 mmol/L (135-145); Total Protein 6.9 g/dL (6.5-8.0)
[2025-04-24 20:39] LABS: NT Pro B Type Natriuretic Pept 2352.8 pg/mL (<300); Troponin-I High Sensitivity 4.5 ng/L (<3.5-17.0)
--- NOTE | 2025-04-24 21:41 | MHC.EDTECH ---
pt was able to ambulate with walker, very sore but bearable pain
[2025-04-24 21:55] VITALS: BP 154/68; PULSE 75; RESP 16; TEMP 36.7; O2SAT 98
== END 2025-04-24 21:55 | disposition home or self-care (01) ==
PROVIDERS: Physician Assistant; Emergency Provider Emergency Medicine; PCP Internal Medicine
DX: G89.11 Acute pain due to trauma (principal); M25.551 Pain in right hip; Z91.81 History of falling; I11.0 Hypertensive heart disease with heart failure; I50.9 Heart failure, unspecified; Z79.899 Other long term (current) drug therapy; Z87.891 Personal history of nicotine dependence
CPT/HCPCS: 36415; 70450; 72125; 73502; 80053; 83690; 83880; 84484; 85025; 93005; 99284

== ENCOUNTER → 2025-04-24 19:37 | Outpatient (BNV) | payer MEDICARE, SELFPAY | PROVIDERS: Emergency Provider Emergency Medicine; PCP Internal Medicine; Visit Provider Internal Medicine | DX: Z04.3 Encounter for examination and observation following other accident (principal) | CPT/HCPCS: 93010 ==

== ENCOUNTER → 2025-04-24 19:37 | Outpatient (BNV) | payer MEDICARE, SELFPAY | PROVIDERS: Emergency Provider Emergency Medicine; PCP Internal Medicine; Visit Provider Radiology Diagnostic Radiology | DX: Z04.3 Encounter for examination and observation following other accident (principal) | CPT/HCPCS: 70450; 72125 ==